=== PATIENT | female | born 1955 | race Caucasian/White ===

== ENCOUNTER 2020-07-13 13:30 | Outpatient (REF) | payer OTHER, SELFPAY ==
[2020-07-13 14:21] LABS: MANUAL DIFF FLAG NO
[2020-07-13 14:25] LABS: Basophils Absolute Auto 0.1 X10*3/uL (0.0-0.2); Basophils Percent Auto 1.1 % (0-2); Eosinophils Absolute Auto 0.2 X10*3/uL (0.0-0.4); Eosinophils Percent Auto 3.9 % (0-4); Hematocrit 41.3 % (37-47); Hemoglobin 12.9 g/dl (12.0-16.0); Imm Gran Abs Auto 0.01 X10*3/uL (0.00-0.03); Imm Gran Pct Auto 0.2 % (0.0-0.4); Lymphocytes Absolute Auto 1.8 X10*3/uL (1.2-4.9); Lymphocytes Percent Auto 29.2 % (20-40); Mean Corpuscular HGB Conc 31.2 g/dl (31.0-35.0); Mean Corpuscular Hemoglobin 30.6 pg (27.0-33.0); Mean Corpuscular Volume 97.9 fL (80-98); Mean Platelet Volume 10.1 fL (9.4-12.3); Monocytes Absolute Auto 0.9 X10*3/uL (0.1-1.2); Monocytes Percent Auto 15.2 % (2-11); Neutrophils Absolute Auto 3.1 X10*3/uL (2.0-8.3); Neutrophils Percent Auto 50.4 % (45-73); Platelet Count 197 X10*3/uL (160-400); Red Blood Count 4.22 X10*6/uL (4.20-5.50); Red Cell Distribution Width 12.7 % (11.0-16.0); White Blood Count 6.2 X10*3/uL (4.8-10.8)
[2020-07-13 15:00] LABS: Alanine Aminotransferase 13 U/L (0-31); Albumin Level 4.1 g/dL (3.5-5.0); Alkaline Phosphatase 81 U/L (39-117); Anion Gap 13 (12-20); Aspartate Amino Transferase 23 U/L (5-31); Bilirubin Total 0.5 mg/dL (0.0-1.0); Blood Urea Nitrogen 17 mg/dL (9-16); Calcium 8.6 mg/dL (8.4-10.2); Carbon Dioxide 30 mmol/L (22-29); Chloride 104 mmol/L (96-108); Estimated Glomerular Filt Rate 60; Glucose Random 89 mg/dL (60-115); Potassium 4.6 mmol/l (3.3-5.1); Sodium 142 mmol/L (135-145); Total Protein 6.5 g/dL (6.5-8.0)
[2020-07-13 15:10] LABS: Erythrocyte Sedimentation Rate 12 MM/HR (0-20)
== END 2020-07-13 13:31 | disposition home or self-care (01) ==
LOC: HO.LAB 13:30
PROVIDERS: Visit Provider Student in an Organized Health Care Education/Training Program
DX: M33.20 Polymyositis, organ involvement unspecified (principal); M10.9 Gout, unspecified; M19.042 Primary osteoarthritis, left hand; M19.041 Primary osteoarthritis, right hand; M54.12 Radiculopathy, cervical region
CPT/HCPCS: 36415; 80053; 82550; 85025; 85652; 86140

== ENCOUNTER → 2020-07-21 14:04 | Outpatient (BNVA) | payer OTHER, SELFPAY | PROVIDERS: Visit Provider Student in an Organized Health Care Education/Training Program | DX: Z76.89 Persons encountering health services in other specified circumstances (principal) ==

== ENCOUNTER 2020-07-25 14:52 | Outpatient (REF) | payer OTHER, SELFPAY ==
--- NOTE | 2020-07-25 14:47 | MR_ITS ---
EXAMINATION: MR HAND WITH AND WITHOUT CONTRAST, RIGHT CLINICAL INFORMATION: Hand pain. Gout. COMPARISON: Radiograph dated 03/13/2019 TECHNIQUE: Multiplanar MR imaging was obtained through the right hand on a 1.5 Tasha magnet before and after the intravenous administration of 10 mL Gadavist. FINDINGS: Metal artifact arises from the ring around the patient's ring finger proximal phalangeal shaft, limiting assessment of this region as well as the ring finger PIP joint. There is moderate multifocal osteoarthritis at the PIP joint which is characterized by nonuniform articular cartilage loss, marginal osteophytes, subchondral edema, a few subchondral cysts, and minimal subchondral enhancement. These findings are most notable at the index, long, and ring finger PIP joints. More mild multifocal osteoarthritis is present in the DIP joints, most notably at the small finger. MCP joints appear relatively well preserved with the exception of mild osteoarthritis at the thumb MCP joint. Mild osteoarthritis is also suspected at the first CMC joint. Small effusions are present at the PIP joints of the index, long, and ring fingers without significant synovitis. Small ganglion cysts are present in these regions, most notably at the index and long finger MCP joint. A 1.0 cm ganglion cyst is present at the palmar margin of the 1st CMC joint as well. No significant erosions or periostitis are identified. No gouty tophi are identified. The intrinsic hand musculature is normal in signal intensity. No atrophy or edema. Extensor and flexor tendons are intact without tears or tenosynovitis. No tendon subluxation. MR/MR hand RT wo/w con IMPRESSION: Multifocal osteoarthritis in the right hand, most notably at the PIP joints of the index, long, and ring fingers. No specific findings of gout. Ganglion cysts at multiple joints may contribute to a nodular appearance to the affected joints, most notably the index and long finger PIP joints
== END 2020-07-25 14:53 | disposition home or self-care (01) ==
LOC: HO.MRI 14:52
PROVIDERS: Visit Provider Student in an Organized Health Care Education/Training Program
DX: M79.641 Pain in right hand (principal); M10.9 Gout, unspecified
CPT/HCPCS: 73220; A9585

== ENCOUNTER 2020-08-01 09:03 | Outpatient (REF) | payer OTHER, SELFPAY ==
--- NOTE | 2020-08-01 09:39 | XR_ITS ---
EXAMINATION: XR CHEST CLINICAL INFORMATION: Cough COMPARISON: Previous chest x-rays most recent April 2010 TECHNIQUE: 2 views of the chest were obtained. FINDINGS: The cardiac and mediastinal contours are stable. The lungs are clear. There is no pleural effusion or pneumothorax. There are degenerative changes of the spine. XR/XR chest 2V IMPRESSION: Unremarkable examination.
[2020-08-01 10:28] LABS: MANUAL DIFF FLAG NO
[2020-08-01 10:44] LABS: Basophils Absolute Auto 0.1 X10*3/uL (0.0-0.2); Basophils Percent Auto 1.4 % (0-2); Eosinophils Absolute Auto 0.2 X10*3/uL (0.0-0.4); Eosinophils Percent Auto 4.9 % (0-4); Hematocrit 39.5 % (37-47); Hemoglobin 13.2 g/dl (12.0-16.0); Imm Gran Abs Auto 0.02 X10*3/uL (0.00-0.03); Imm Gran Pct Auto 0.4 % (0.0-0.4); Lymphocytes Absolute Auto 1.5 X10*3/uL (1.2-4.9); Lymphocytes Percent Auto 31.1 % (20-40); Mean Corpuscular HGB Conc 33.4 g/dl (31.0-35.0); Mean Corpuscular Hemoglobin 31.7 pg (27.0-33.0); Mean Platelet Volume 10.7 fL (9.4-12.3); Monocytes Absolute Auto 0.6 X10*3/uL (0.1-1.2); Monocytes Percent Auto 13.1 % (2-11); Neutrophils Absolute Auto 2.4 X10*3/uL (2.0-8.3); Neutrophils Percent Auto 49.1 % (45-73); Platelet Count 165 X10*3/uL (160-400); Red Blood Count 4.16 X10*6/uL (4.20-5.50); Red Cell Distribution Width 12.5 % (11.0-16.0); White Blood Count 4.9 X10*3/uL (4.8-10.8)
[2020-08-01 11:12] LABS: Alanine Aminotransferase 14 U/L (0-31); Albumin Level 3.8 g/dL (3.5-5.0); Alkaline Phosphatase 79 U/L (39-117); Aspartate Amino Transferase 24 U/L (5-31); Bilirubin Direct 0.3 mg/dL (0.0-0.5); Bilirubin Total 0.6 mg/dL (0.0-1.0); Calcium 9.1 mg/dL (8.4-10.2); Cholesterol 145 mg/dL; HDL Cholesterol 45 mg/dL; LDL Cholesterol Calculated 65 mg/dl; Magnesium 1.7 mg/dL (1.6-2.6); Total Protein 6.3 g/dL (6.5-8.0); Triglycerides 177 mg/dL
[2020-08-01 11:14] LABS: Alanine Aminotransferase 15 U/L (0-31); Albumin Level 3.9 g/dL (3.5-5.0); Alkaline Phosphatase 79 U/L (39-117); Anion Gap 12 (12-20); Aspartate Amino Transferase 22 U/L (5-31); Bilirubin Total 0.6 mg/dL (0.0-1.0); Blood Urea Nitrogen 17 mg/dL (9-16); C Reactive Protein 0.13 mg/dL (< or = 0.50); Calcium 9.1 mg/dL (8.4-10.2); Carbon Dioxide 24 mmol/L (22-29); Chloride 110 mmol/L (96-108); Estimated Glomerular Filt Rate > 60; Glucose Random 91 mg/dL (60-115); Sodium 142 mmol/L (135-145); Total Protein 6.3 g/dL (6.5-8.0); Uric Acid 9.7 mg/dL (2.4-5.7)
[2020-08-01 11:17] LABS: Vitamin D 25-OH Total 11.6 ng/mL (>30)
[2020-08-01 11:51] LABS: Erythrocyte Sedimentation Rate 10 MM/HR (0-20)
[2020-08-09 14:52] LABS: Aldolase 4.9 U/L (<=8.1)
== END 2020-08-01 09:04 | disposition home or self-care (01) ==
LOC: HO.LAB 09:03
PROVIDERS: Visit Provider Student in an Organized Health Care Education/Training Program
DX: M33.20 Polymyositis, organ involvement unspecified (principal); M10.9 Gout, unspecified; E78.5 Hyperlipidemia, unspecified; I10 Essential (primary) hypertension
CPT/HCPCS: 36415; 71046; 80053; 80061; 80076; 82085; 82248; 82306; 82310; 82550; 83735; 84550; 85025; 85652; 86140

== ENCOUNTER 2020-10-14 09:58 | Outpatient (REF) | payer SELFPAY ==
[2020-10-14 11:14] LABS: MANUAL DIFF FLAG NO
[2020-10-14 11:38] LABS: Basophils Absolute Auto 0.1 X10*3/uL (0.0-0.2); Basophils Percent Auto 1.1 % (0-2); Eosinophils Absolute Auto 0.3 X10*3/uL (0.0-0.4); Eosinophils Percent Auto 6.1 % (0-4); Hemoglobin 13.9 g/dl (12.0-16.0); Lymphocytes Absolute Auto 1.5 X10*3/uL (1.2-4.9); Lymphocytes Percent Auto 33.3 % (20-40); Mean Corpuscular HGB Conc 32.3 g/dl (31.0-35.0); Mean Corpuscular Hemoglobin 31.1 pg (27.0-33.0); Mean Corpuscular Volume 96.2 fL (80-98); Mean Platelet Volume 10.2 fL (9.4-12.3); Monocytes Absolute Auto 0.6 X10*3/uL (0.1-1.2); Monocytes Percent Auto 13.9 % (2-11); Neutrophils Absolute Auto 2.1 X10*3/uL (2.0-8.3); Neutrophils Percent Auto 45.6 % (45-73); Platelet Count 196 X10*3/uL (160-400); Red Blood Count 4.47 X10*6/uL (4.20-5.50); Red Cell Distribution Width 12.5 % (11.0-16.0); White Blood Count 4.6 X10*3/uL (4.8-10.8)
[2020-10-14 11:51] LABS: Alanine Aminotransferase 16 U/L (0-31); Albumin Level 4.2 g/dL (3.5-5.0); Alkaline Phosphatase 83 U/L (39-117); Anion Gap 13 (12-20); Aspartate Amino Transferase 27 U/L (5-31); Bilirubin Total 0.8 mg/dL (0.0-1.0); Blood Urea Nitrogen 17 mg/dL (9-16); C Reactive Protein 0.19 mg/dL (< or = 0.50); Calcium 9.4 mg/dL (8.4-10.2); Carbon Dioxide 27 mmol/L (22-29); Chloride 107 mmol/L (96-108); Cholesterol 159 mg/dL; Estimated Glomerular Filt Rate 54; Glucose Fasting 95 mg/dL (60-99); HDL Cholesterol 48 mg/dL; LDL Cholesterol Calculated 70 mg/dl; Potassium 4.1 mmol/L (3.3-5.1); Sodium 143 mmol/L (135-145); Total Protein 6.7 g/dL (6.5-8.0); Triglycerides 207 mg/dL; Uric Acid 9.4 mg/dL (2.4-5.7)
[2020-10-14 11:58] LABS: Glucose Urine UA NEG (NEG); Leukocyte Esterase Urine NEG (NEG); Nitrite Urine NEG (NEG); Urine Blood NEG (NEG); Urine Ketones NEG (NEG); Urine Protein NEG (NEG-TRACE)
[2020-10-14 12:01] LABS: Appearance Urine CLEAR; Color Urine YELLOW
[2020-10-16 20:41] LABS: Anti-Thrombin III Activity 105 % normal (80-135); Protein C Activity 137 % (70-180); Protein S Activity rflx Tot&Fr 138 % (60-140)
== END 2020-10-14 09:59 | disposition home or self-care (01) ==
LOC: HO.HMGCLDS 09:58
PROVIDERS: PCP Internal Medicine; Visit Provider Internal Medicine
DX: I10 Essential (primary) hypertension (principal); E78.00 Pure hypercholesterolemia, unspecified; M10.9 Gout, unspecified; Z86.718 Personal history of other venous thrombosis and embolism
CPT/HCPCS: 36415; 80053; 80061; 81003; 81241; 84550; 85025; 85300; 85302; 85303; 85305; 85306; 86140

== ENCOUNTER → 2021-01-13 15:12 | Outpatient (BNVA) | payer MEDICARE, OTHER, SELFPAY | PROVIDERS: PCP Internal Medicine; Visit Provider Student in an Organized Health Care Education/Training Program | DX: M33.20 Polymyositis, organ involvement unspecified (principal); M10.9 Gout, unspecified; M19.042 Primary osteoarthritis, left hand; M19.041 Primary osteoarthritis, right hand; R19.7 Diarrhea, unspecified | CPT/HCPCS: 99212 ==

== ENCOUNTER 2021-01-25 15:24 | Outpatient (REF) | payer MEDICARE, OTHER, SELFPAY ==
[2021-01-26 22:27] LABS: Transglutaminase Ab IgG 2 U/mL; Transglutaminase IgA 1 U/mL
== END 2021-01-25 15:25 | disposition home or self-care (01) ==
LOC: HO.LAB 15:24
PROVIDERS: PCP Internal Medicine; Referring Provider Internal Medicine; Visit Provider Nurse Practitioner Family
DX: R19.7 Diarrhea, unspecified (principal); K21.9 Gastro-esophageal reflux disease without esophagitis
CPT/HCPCS: 36415; 83516; Q3014

== ENCOUNTER 2021-01-26 14:06 | Outpatient (REF) | payer MEDICARE, OTHER, SELFPAY | END 2021-01-26 14:07 | disposition home or self-care (01) | LOC: HO.LNP 14:06 | PROVIDERS: Visit Provider Nurse Practitioner Family | DX: K21.9 Gastro-esophageal reflux disease without esophagitis (principal) | CPT/HCPCS: 87338 ==

== ENCOUNTER → 2021-02-28 14:12 | Outpatient (BNVA) | payer MEDICARE, OTHER, SELFPAY | PROVIDERS: PCP Internal Medicine; Visit Provider Nurse Practitioner Family | DX: R19.7 Diarrhea, unspecified (principal); R10.11 Right upper quadrant pain | CPT/HCPCS: 99212 ==

== ENCOUNTER 2021-03-21 10:36 | Outpatient (REF) | payer MEDICARE, OTHER, SELFPAY ==
--- NOTE | ~2021-03-21 | US_ITS ---
EXAMINATION: US ABDOMEN COMPLETE CLINICAL INFORMATION: Diarrhea. COMPARISON: Ultrasound renals 12/12/2018. CT abdomen pelvis 11/25/2014. Ultrasound abdomen 07/14/2010. TECHNIQUE: Real-time imaging of the abdominal viscera. FINDINGS: PANCREAS: Head and body the pancreas are normal. The tail is not well visualized due to bowel gas. ABDOMINAL AORTA: The proximal, mid, and distal segments are normal in caliber. INFERIOR VENA CAVA: Visualized portions are normal. LIVER: Liver echotexture is increased probably representing fatty infiltration. The liver is slightly enlarged, right lobe measuring 19 cm in length. The liver contour is normal. No focal hepatic lesion. There is no intrahepatic biliary duct dilatation seen. GALLBLADDER: Normal. The gallbladder is physiologically distended without evidence of stones, sludge, polyps, wall thickening or pericholecystic fluid. COMMON BILE DUCT: Normal in caliber measuring 0.55 cm in diameter. RIGHT KIDNEY: There is mild renal cortical thinning. No hydronephrosis. No renal calculi or focal parenchymal lesions. The kidney measures 10.7 cm in maximum dimension. LEFT KIDNEY: There is mild renal cortical thinning. No hydronephrosis. No renal calculi or focal parenchymal lesions. The kidney measures 10.0 cm in maximum dimension. SPLEEN: Normal. The spleen measures 11.2 cm in maximum dimension. FREE FLUID: None. US/US abdomen complete IMPRESSION: Slightly enlarged echogenic liver probably representing fatty infiltration. Normal-appearing gallbladder. No gallstones seen. Mild bilateral renal cortical thinning. Limited visualization of the tail of the pancreas.
== END 2021-03-21 10:37 | disposition home or self-care (01) ==
LOC: HO.HMGCX 10:36
PROVIDERS: PCP Internal Medicine; Visit Provider Nurse Practitioner Family
DX: R10.11 Right upper quadrant pain (principal); R19.7 Diarrhea, unspecified
CPT/HCPCS: 76700

== ENCOUNTER 2021-04-04 14:33 | Outpatient (REF) | payer MEDICARE, OTHER, SELFPAY ==
[2021-04-04 16:29] LABS: MANUAL DIFF FLAG NO
[2021-04-04 16:37] LABS: Basophils Absolute Auto 0.1 X10*3/uL (0.0-0.2); Eosinophils Absolute Auto 0.3 X10*3/uL (0.0-0.4); Eosinophils Percent Auto 4.9 % (0-4); Hematocrit 41.1 % (37-47); Hemoglobin 13.6 g/dl (12.0-16.0); Imm Gran Abs Auto 0.02 X10*3/uL (0.00-0.03); Imm Gran Pct Auto 0.3 % (0.0-0.4); Lymphocytes Absolute Auto 1.7 X10*3/uL (1.2-4.9); Lymphocytes Percent Auto 26.9 % (20-40); Mean Corpuscular HGB Conc 33.1 g/dl (31.0-35.0); Mean Corpuscular Hemoglobin 31.7 pg (27.0-33.0); Mean Corpuscular Volume 95.8 fL (80-98); Mean Platelet Volume 9.8 fL (9.4-12.3); Monocytes Percent Auto 15.4 % (2-11); Neutrophils Absolute Auto 3.2 X10*3/uL (2.0-8.3); Neutrophils Percent Auto 51.5 % (45-73); Platelet Count 188 X10*3/uL (160-400); Red Blood Count 4.29 X10*6/uL (4.20-5.50); Red Cell Distribution Width 12.7 % (11.0-16.0); White Blood Count 6.3 X10*3/uL (4.8-10.8)
[2021-04-04 16:54] LABS: Alanine Aminotransferase 17 U/L (0-31); Albumin Level 4.3 g/dL (3.5-5.0); Alkaline Phosphatase 81 U/L (39-117); Anion Gap 15 (12-20); Aspartate Amino Transferase 27 U/L (5-31); Bilirubin Total 0.7 mg/dL (0.0-1.0); Blood Urea Nitrogen 19 mg/dL (9-16); C Reactive Protein 0.13 mg/dL (< or = 0.50); Calcium 9.7 mg/dL (8.4-10.2); Carbon Dioxide 24 mmol/L (22-29); Chloride 109 mmol/L (96-108); Estimated Glomerular Filt Rate 56; Glucose Random 88 mg/dL (60-115); Potassium 3.8 mmol/L (3.3-5.1); Sodium 144 mmol/L (135-145); Total Protein 6.9 g/dL (6.5-8.0)
[2021-04-04 17:25] LABS: Erythrocyte Sedimentation Rate 12 MM/HR (0-20)
[2021-04-07 19:32] LABS: FIB-ALT 15 U/L (6-29); FIB-Alpha-2-Macroglobulin 387 mg/dL (106-279); FIB-Apolipoprotein A1 171 mg/dL (101-198); FIB-GGT 20 U/L (3-65); FIB-Haptoglobin 159 mg/dL (43-212); FIB-Total Bilirubin 0.6 mg/dL (0.2-1.2); Liver Fibrosis Score 0.43; Liver Fibrosis Stage F1-F2; Nec Inflam Act Grade A0; Nec Inflam Act Score 0.06
== END 2021-04-04 14:34 | disposition home or self-care (01) ==
LOC: HO.LAB 14:33
PROVIDERS: Student in an Organized Health Care Education/Training Program; PCP Internal Medicine; Referring Provider Internal Medicine; Visit Provider Nurse Practitioner Family
DX: M33.20 Polymyositis, organ involvement unspecified (principal); R74.8 Abnormal levels of other serum enzymes; R19.7 Diarrhea, unspecified; K76.0 Fatty (change of) liver, not elsewhere classified
CPT/HCPCS: 36415; 80053; 81596; 82550; 85025; 85652; 86140; 99212

== ENCOUNTER 2021-04-05 10:00 | Outpatient (REF) | payer MEDICARE, OTHER, SELFPAY ==
[2021-04-06 15:31] LABS: Leukocytes Stool Qualitative NEGATIVE (NEGATIVE)
[2021-04-10 20:01] LABS: Calprotectin, Fecal 10 mcg/g
== END 2021-04-05 10:01 | disposition home or self-care (01) ==
LOC: HO.LNP 10:00
PROVIDERS: Visit Provider Nurse Practitioner Family
DX: R19.7 Diarrhea, unspecified (principal)
CPT/HCPCS: 83993; 87045; 87046; 87177; 87209; 89055

== ENCOUNTER → 2021-04-13 14:50 | Outpatient (BNVA) | payer MEDICARE, OTHER, SELFPAY | PROVIDERS: PCP Internal Medicine; Visit Provider Nurse Practitioner Family | DX: M33.20 Polymyositis, organ involvement unspecified (principal); M10.9 Gout, unspecified; M19.042 Primary osteoarthritis, left hand; M19.041 Primary osteoarthritis, right hand; R19.7 Diarrhea, unspecified | CPT/HCPCS: 99212 ==

== ENCOUNTER → 2021-06-09 13:51 | Outpatient (BNVA) | payer MEDICARE, OTHER, SELFPAY | PROVIDERS: PCP Internal Medicine; Referring Provider Internal Medicine; Visit Provider Nurse Practitioner Family | DX: R19.7 Diarrhea, unspecified (principal); K58.0 Irritable bowel syndrome with diarrhea | CPT/HCPCS: 99212 ==

== ENCOUNTER → 2021-06-29 07:27 | Outpatient (REF) | payer MEDICARE, OTHER, SELFPAY ==
--- NOTE | ~2021-06-29 | NM_ITS ---
EXAMINATION: ND NUCLEAR MEDICINE HEPATOBILIARY SCAN CLINICAL INFORMATION: Diarrhea. Right upper quadrant pain. GERD. COMPARISON: Ultrasound abdomen 03/21/2021. TECHNIQUE: Following intravenous administration of 5 mCi of 99m technetium mebrofenin, imaging over the right upper quadrant was obtained up to 60 minutes. At 60 minutes, 1.8 mcg of CCK was administered and further imaging obtained. FINDINGS: There is normal hepatic uptake with visualization of common bile duct by 14 minutes and small bowel by 20 minutes. Gallbladder is visualized by 44 minutes. Post CCK gallbladder ejection fraction at 10 minutes is 34% and at 30 minutes is 82%. ND/ND hepatobiliary w pharm IMPRESSION: Normal hepatic uptake. Patent CBD and cystic duct. Normal gallbladder ejection fraction of 82% at 30 minutes.
== END ==
LOC: HO.NUCMED 07:27
PROVIDERS: PCP Internal Medicine; Visit Provider Nurse Practitioner Family
DX: R19.7 Diarrhea, unspecified (principal)
CPT/HCPCS: 78227; A9537; J2805

== ENCOUNTER 2021-06-30 09:48 | Outpatient (REF) | payer MEDICARE, OTHER, SELFPAY ==
[2021-06-30 10:41] LABS: MANUAL DIFF FLAG NO
[2021-06-30 10:52] LABS: Basophils Absolute Auto 0.1 X10*3/uL (0.0-0.2); Eosinophils Absolute Auto 0.5 X10*3/uL (0.0-0.4); Eosinophils Percent Auto 6.4 % (0-4); Hemoglobin 13.9 g/dl (12.0-16.0); Imm Gran Abs Auto 0.02 X10*3/uL (0.00-0.03); Imm Gran Pct Auto 0.2 % (0.0-0.4); Lymphocytes Absolute Auto 1.6 X10*3/uL (1.2-4.9); Lymphocytes Percent Auto 20.4 % (20-40); Mean Corpuscular HGB Conc 33.9 g/dl (31.0-35.0); Mean Corpuscular Hemoglobin 32.1 pg (27.0-33.0); Mean Corpuscular Volume 94.7 fL (80-98); Mean Platelet Volume 9.7 fL (9.4-12.3); Monocytes Percent Auto 12.1 % (2-11); Neutrophils Absolute Auto 4.8 X10*3/uL (2.0-8.3); Neutrophils Percent Auto 59.9 % (45-73); Platelet Count 180 X10*3/uL (160-400); Red Blood Count 4.33 X10*6/uL (4.20-5.50); Red Cell Distribution Width 12.9 % (11.0-16.0)
[2021-06-30 11:23] LABS: Alanine Aminotransferase 18 U/L (0-31); Albumin Level 4.2 g/dL (3.5-5.0); Alkaline Phosphatase 79 U/L (39-117); Anion Gap 11 (12-20); Aspartate Amino Transferase 26 U/L (5-31); Bilirubin Total 1.1 mg/dL (0.0-1.0); Blood Urea Nitrogen 17 mg/dL (9-16); Calcium 9.6 mg/dL (8.4-10.2); Carbon Dioxide 27 mmol/L (22-29); Chloride 109 mmol/L (96-108); Estimated Glomerular Filt Rate 51; Glucose Random 151 mg/dL (60-115); Potassium 3.6 mmol/L (3.3-5.1); Sodium 143 mmol/L (135-145); Total Protein 6.7 g/dL (6.5-8.0)
[2021-06-30 11:36] LABS: Erythrocyte Sedimentation Rate 19 MM/HR (0-20)
== END 2021-06-30 09:49 | disposition home or self-care (01) ==
LOC: HO.LAB 09:48
PROVIDERS: Nurse Practitioner Family; PCP Internal Medicine; Referring Provider Internal Medicine; Visit Provider Nurse Practitioner Family
DX: M33.20 Polymyositis, organ involvement unspecified (principal); R19.7 Diarrhea, unspecified
CPT/HCPCS: 36415; 80053; 82550; 84443; 85025; 85652; 86140; 99212

== ENCOUNTER 2021-07-03 14:21 | Outpatient (REF) | payer MEDICARE, OTHER, SELFPAY ==
[2021-07-03 16:32] LABS: Folate 17.6 ng/mL (> or = 4.0); Vitamin B12 690 pg/mL (200-900)
[2021-07-07 14:06] LABS: Vitamin D 25-OH, D2 <4 ng/mL; Vitamin D 25-OH, D3 21 ng/mL; Vitamin D 25-OH, Total 21 ng/mL (30-100)
== END 2021-07-03 14:22 | disposition home or self-care (01) ==
LOC: HO.LAB 14:21
PROVIDERS: PCP Internal Medicine; Visit Provider Nurse Practitioner Family
DX: R19.7 Diarrhea, unspecified (principal)
CPT/HCPCS: 36415; 82306; 82607; 82746

== ENCOUNTER 2021-07-05 11:00 | Outpatient (REF) | payer MEDICARE, OTHER, SELFPAY ==
[2021-07-10 22:12] LABS: Fecal Fat Qualitative Normal (Normal)
[2021-07-10 22:51] LABS: Pancreatic Elastase-1 >500 mcg/g
== END 2021-07-05 11:01 | disposition home or self-care (01) ==
LOC: HO.LNP 11:00
PROVIDERS: Visit Provider Nurse Practitioner Family
DX: R19.7 Diarrhea, unspecified (principal)
CPT/HCPCS: 82656; 82705

== ENCOUNTER → 2021-08-31 08:23 | Outpatient (BNVA) | payer MEDICARE, OTHER, SELFPAY | PROVIDERS: PCP Internal Medicine; Referring Provider Internal Medicine; Visit Provider Internal Medicine Gastroenterology | DX: K52.9 Noninfective gastroenteritis and colitis, unspecified (principal) | CPT/HCPCS: 99212 ==

== ENCOUNTER 2021-10-04 11:04 | Outpatient (REF) | payer MEDICARE, OTHER, SELFPAY ==
[2021-10-10 06:26] LABS: Gastrin 18 pg/mL (<=100)
== END 2021-10-04 11:05 | disposition home or self-care (01) ==
LOC: HO.LAB 11:04
PROVIDERS: PCP Internal Medicine; Visit Provider Internal Medicine Gastroenterology
DX: R19.7 Diarrhea, unspecified (principal)
CPT/HCPCS: 36415; 82941

== ENCOUNTER 2021-10-06 15:20 | Outpatient (REF) | payer MEDICARE, OTHER, SELFPAY ==
[2021-10-10 20:52] LABS: Fecal Fat Qualitative Normal (Normal)
== END 2021-10-06 15:21 | disposition home or self-care (01) ==
LOC: HO.LNP 15:20
PROVIDERS: Visit Provider Nurse Practitioner Family
DX: R19.7 Diarrhea, unspecified (principal)
CPT/HCPCS: 82705

== ENCOUNTER 2021-10-09 11:29 | Day surgery (SDC) | payer MEDICARE, OTHER, SELFPAY ==
[2021-10-03 14:15] VITALS: BMI 39.2
--- NOTE | 2021-10-06 09:37 | P.CONAN_ITS ---
Documented by User: Alana Feliciano NP 10/06/21 09:38 HPI - Anesthesia Eval Consult details Narrative: 66yo F for Upper Endoscopy PMFSH Active Problems Active Problems: All Active Problems (Updated 06/09/21 @ 20:53 by Nini Mccormick, [facility]) Cough (Acute) Diarrhea (Acute) Primary osteoarthritis, right hand (Acute) Primary osteoarthritis, left hand (Acute) Gout (Acute) Polymyositis (Acute) Past Medical History Medical History DVT (deep venous thrombosis) Eczema Gout Polymyositis Primary osteoarthritis, left hand Primary osteoarthritis, right hand Surgical History Surgical History H/O colonoscopy Social History Social History Alcohol intake: never Patient Tobacco Use Status: Never used Tobacco e-Cigarette/Vaping Use: Never Used Advance Directives Information Provided: Yes (brochure mailed) Advance Directives on File: No Meds Allergies Allergy/AdvReac Type Severity Reaction Status Date / Time hydroxychloroquine Allergy Severe Rash Verified 08/31/21 08:41 [Plaquenil] methotrexate Allergy Intermediate Diarrhea Verified 08/31/21 08:41 tramadol Allergy Intermediate Diarrhea Verified 08/31/21 08:41 codeine [Codeine] Allergy Mild NAUSEA & Verified 08/31/21 08:41 VOMITING oxycodone Allergy Mild mild Verified 08/31/21 08:41 Home Medications Medication Instructions Recorded Confirmed Last Taken Type acetaminophen 650 650 mg PO Q8H 07/21/20 10/03/21 Unknown History mg PRN tablet,extended release atorvastatin 20 20 mg PO DAILY 07/21/20 10/03/21 Unknown History mg tablet calcium citrate 1 tab PO DAILY 07/21/20 10/03/21 Unknown History 315 mg calcium-vitamin D3 6.25 mcg (250 unit) tablet (Citracal + Vitamin D Maximum) furosemide 20 mg 10 mg PO QAM 07/21/20 10/03/21 Unknown History tablet metoprolol 100 mg PO DAILY 07/21/20 10/03/21 Unknown History succinate 100 mg tablet,extended release 24 hr vitamin B complex 1 tab PO DAILY 07/21/20 10/03/21 Unknown History (B Complex-Vitamin B12) loperamide 2 mg 2 mg PO Q6H PRN 01/13/21 10/03/21 Unknown History capsule (Imodium A-D) Saccharomyces 250 mg PO BID 04/13/21 10/03/21 Unknown History boulardii 250 mg capsule (Daily Probiotic (S. boulardii)) methylcellulose 500 mg PO DAILY 04/13/21 10/03/21 Unknown History (laxative) 500 mg tablet (Fiber Therapy (methylcellulose) ) Exam Exam Date and Time: October 06, 2021 0937 Height,Weight and Vital Signs: Height 5 ft 1.5 in Weight 95.708 kg Pertinent Lab Results Pertinent Lab Results: Laboratory Tests 06/30/21 06/30/21 10:38 10:38 WBC 8.0 Hgb 13.9 Hct 41.0 Plt Count 180 Sodium 143 Potassium 3.6 Chloride 109 H Carbon Dioxide 27 BUN 17 H Creatinine 1.08 Assessment and Plan Assessment Anesthesia Assessment: Chart Reviewed Documented by User: Katia Jackson MD 10/09/21 13:15 [facility] Past Medical History Medical History DVT (deep venous thrombosis) Eczema Gout Polymyositis Primary osteoarthritis, left hand Primary osteoarthritis, right hand Surgical History Surgical History H/O colonoscopy History of Problems with Anesthesia: Yes (Nausea and vomiting) Social History Social History Alcohol intake: never Patient Tobacco Use Status: Never used Tobacco e-Cigarette/Vaping Use: Never Used Advance Directives Information Provided: Yes (brochure mailed) Advance Directives on File: No Meds Allergies Allergy/AdvReac Type Severity Reaction Status Date / Time hydroxychloroquine Allergy Severe Rash Verified 08/31/21 08:41 [Plaquenil] methotrexate Allergy Intermediate Diarrhea Verified 08/31/21 08:41 tramadol Allergy Intermediate Diarrhea Verified 08/31/21 08:41 codeine [Codeine] Allergy Mild NAUSEA & Verified 08/31/21 08:41 VOMITING oxycodone Allergy Mild mild Verified 08/31/21 08:41 Home Medications Medication Instructions Recorded Confirmed Last Taken Type acetaminophen 650 650 mg PO Q8H 07/21/20 10/03/21 Unknown History mg PRN tablet,extended release atorvastatin 20 20 mg PO DAILY 07/21/20 10/03/21 Unknown History mg tablet calcium citrate 1 tab PO DAILY 07/21/20 10/03/21 Unknown History 315 mg calcium-vitamin D3 6.25 mcg (250 unit) tablet (Citracal + Vitamin D Maximum) furosemide 20 mg 10 mg PO QAM 07/21/20 10/03/21 Unknown History tablet metoprolol 100 mg PO DAILY 07/21/20 10/03/21 Unknown History succinate 100 mg tablet,extended release 24 hr vitamin B complex 1 tab PO DAILY 07/21/20 10/03/21 Unknown History (B Complex-Vitamin B12) loperamide 2 mg 2 mg PO Q6H PRN 01/13/21 10/03/21 Unknown History capsule (Imodium A-D) Saccharomyces 250 mg PO BID 04/13/21 10/03/21 Unknown History boulardii 250 mg capsule (Daily Probiotic (S. boulardii)) methylcellulose 500 mg PO DAILY 04/13/21 10/03/21 Unknown History (laxative) 500 mg tablet (Fiber Therapy (methylcellulose) ) Exam Airway Mallampati Class: II TM Dist: >3cm Neck ROM: Full Heart: RRR Lungs: CTA Assessment and Plan Assessment Anesthesia Assessment: Anesthesia Plan Discussed Final Anesthetic Review History of Problems with Anesthesia: Yes (Nausea and vomiting) NPO: Yes ASA Class: II Final Preanesthetic Review: Meds/Allgs Chart Reviewed, Consent Obtained/Reviewed and Anes Risks/Benef Reviewed Patient Risk: Low Procedure Risk: Intermediate Anesthetic Plan Anesthetic Plan: MAC: Disposition: Standard PACU
[2021-10-09 11:49] VITALS: BP 187/86; PULSE 72; RESP 17; TEMP 36.8; O2SAT 98
[2021-10-09] MEDS: Lactated Ringers 1,000 ML 100 ML IVCONT (12:11)
--- NOTE | 2021-10-09 12:11 | MHC.SHP ---
Pre-Procedural Eval Section A Date of Service: 10/09/21 The patient is an INPATIENT: No The History & Physical has been completed within 30 days and I have reviewed it.: No Section B Chief Complaint: GERD Details of Present Illness: GERD, chronic diarrhea Relevant Family History (Specify if Yes): No Relevant Social History: None Present Medications: see Short Stay Collaborative assessment Medical History: Significant History (Gout Polymyositis Primary osteoarthritis, left hand Primary osteoarthritis, right hand) History of Previous Operations: Relevant previous surgery/procedure and date(s) (History of colonoscopy) Allergies: Allergies Allergy/AdvReac Type Severity Reaction Status Date / Time hydroxychloroquine Allergy Severe Rash Verified 08/31/21 08:41 [Plaquenil] methotrexate Allergy Intermediate Diarrhea Verified 08/31/21 08:41 tramadol Allergy Intermediate Diarrhea Verified 08/31/21 08:41 codeine [Codeine] Allergy Mild NAUSEA & Verified 08/31/21 08:41 VOMITING oxycodone Allergy Mild mild Verified 08/31/21 08:41 Review of Systems Sugical H&P ROS: Negative: Constitution and Cardiovascular and Yes, Specify: Gastrointestinal (chronic diarrhea, GERD) Exam Surgical H&P Exam: Normal: Heart, Normal: Lungs, Normal: Extremities and Normal: Abdomen Plan Diagnosis/Plan: Unchanged I have reviewed the history and physical and performed a pertinent physical examination on my patient. No changes have occurred unless specified.
[2021-10-09 12:13] VITALS: BP 164/70
--- NOTE | 2021-10-09 12:24 | W.PM.OPN ---
Operative Note Operative Note Date of Service: 10/09/21 Narrative: Pre-op diagnosis: GERD, intermittent dysphagia to solids, chronic diarrhea Post-op diagnosis:?other (Esophagitis, hiatal hernia, Schatzki's ring, gastritis and duodenitis) Procedure: FLEXIBLE TRANSORAL UPPER GASTROINTESTINAL ENDOSCOPY WITH BIOPSIES AND ESOPHAGEAL BALLOON DILATION Consent:?Indications for the procedure and potential complications of bleeding, perforation, reaction to medications and missed diagnosis were discussed with the patient and informed consent was obtained. Instrument:?Olympus GIF H 190 mid size upper endoscope Monitoring: Vital signs and clinical assessment, continuous EKG monitoring, Pulse oximetry, Carbon Dioxide monitoring and blood pressure monitoring were done throughout the procedure. Procedure:?The patient was placed in the left lateral decubitis position and pre-procedure medications were administered and a bite block was placed. The endoscope was inserted into the mouth and advanced under direct vision to the third part of duodenum. A careful inspection was made as the upper endoscope was withdrawn including a retroflexed examination of the proximal stomach; Findings and interventions are described below. Findings: Larynx:? Normal Esophagus: GE junction at 35 cms, small hiatal hernia 35 to 37 cms. Focal esophagitis at GEJ with partially obstructing Schatzki's ring/focal stricture. Esophageal balloon dilation was performed with a 19 mm (54 F) CRE balloon for 60 seconds. Biopsies were obtained from proximal esophagus to check for EOE Stomach: Mild gastric erythema. Biopsies were obtained. Grade 2 flap valve on retroflexed examination of the cardia. Duodenum: Mild duodenitis in the bulb and normal descending duodenum. Biopsies were obtained from 3rd part of the duodenum to check for celiac sprue/eosinophilic gastroenteritis Intervention: Biopsies as noted above Impression and Post Procedure Diagnosis: Endoscopy Findings: ESOPHAGUS: GE junction at 35 cms, small hiatal hernia 35 to 37 cms. Focal esophagitis at GEJ with partially obstructing Schatzki's ring/focal stricture. Esophageal balloon dilation was performed with a 19 mm (54 F) CRE balloon for 60 seconds. Biopsies were obtained from proximal esophagus to check for EOE STOMACH: Mild Gastritis - biopsied to check for H Pylori/eosinophilic gastroenteritis DUODENUM: Mild duodenitis in the bulb and normal descending duodenum. Biopsies were obtained from 3rd part of the duodenum to check for celiac sprue/eosinophilic gastroenteritis Plan: Await pathology results. Start Famotidine 20 mg twice daily for GERD. Patient has an appointment on 10/12/21 in the GI Clinic with Srinivas Torres M.D. Repeat EGD with dilation as needed for recurrent dysphagia Above findings were reviewed with the patient and GERD and Hiatal Hernia handouts were given in the discharge area Surgeon: Srinivas Torres MD Anesthesia:?MAC (Dr Jackson) Was an Meat Apprentice used for this Procedure?:?Yes Meat Apprentice:?Andrew Romo Estimated blood loss (mL):?0 Pathology:?other (A: SMALL BOWEL BXS R/O EOSINOPHILIC GASTROENTERITIS AND R/O CELIAC? B: GASTRIC ANTRUM R/O H PYLORI? C: PROXIMAL ESOPHAGUS R/O EOE) Condition:?stable Disposition:?PACU
[2021-10-09 12:44] VITALS: BP 153/82; PULSE 114; RESP 20; TEMP 36.2; O2SAT 98
[2021-10-09 13:00] VITALS: BP 157/79; PULSE 84; RESP 18; TEMP 36.2; O2SAT 97
== END 2021-10-09 13:33 | disposition home or self-care (01) ==
PROVIDERS: PCP Internal Medicine; Visit Provider Internal Medicine Gastroenterology
PROC: 0DJ08ZZ Inspection of Upper Intestinal Tract, Via Natural or Artificial Opening Endoscopic (ICD-10-PCS; CPT 43235; principal; 2021-10-09 12:40)
DX: K21.9 Gastro-esophageal reflux disease without esophagitis (principal); K22.2 Esophageal obstruction; K20.80 Other esophagitis without bleeding; K29.50 Unspecified chronic gastritis without bleeding; K29.80 Duodenitis without bleeding; K44.9 Diaphragmatic hernia without obstruction or gangrene; Z79.899 Other long term (current) drug therapy; Z88.8 Allergy status to other drugs, medicaments and biological substances
CPT/HCPCS: 43249; 43239; 88305; 88342; C1726; J1100; J2405

== ENCOUNTER → 2021-10-12 08:47 | Outpatient (BNVA) | payer MEDICARE, OTHER, SELFPAY | PROVIDERS: PCP Internal Medicine; Referring Provider Internal Medicine; Visit Provider Internal Medicine Gastroenterology | DX: R19.7 Diarrhea, unspecified (principal) | CPT/HCPCS: 99212 ==

== ENCOUNTER 2021-10-23 10:59 | Outpatient (REF) | payer MEDICARE, OTHER, SELFPAY ==
[2021-10-23 13:55] LABS: MANUAL DIFF FLAG NO
[2021-10-23 14:03] LABS: Basophils Absolute Auto 0.1 X10*3/uL (0.0-0.2); Basophils Percent Auto 0.7 % (0-2); Eosinophils Absolute Auto 0.2 X10*3/uL (0.0-0.4); Eosinophils Percent Auto 2.5 % (0-4); Hematocrit 40.5 % (37.0-47.0); Imm Gran Abs Auto 0.01 X10*3/uL (0.00-0.03); Imm Gran Pct Auto 0.1 % (0.0-0.4); Lymphocytes Absolute Auto 1.6 X10*3/uL (1.2-4.9); Mean Corpuscular HGB Conc 32.1 g/dl (31.0-35.0); Mean Corpuscular Hemoglobin 31.5 pg (27.0-33.0); Mean Corpuscular Volume 98.1 fL (80.0-98.0); Mean Platelet Volume 10.1 fL (9.4-12.3); Monocytes Absolute Auto 1.2 X10*3/uL (0.1-1.2); Monocytes Percent Auto 16.3 % (2-11); Neutrophils Absolute Auto 4.2 x10*3/uL (2.0-8.3); Neutrophils Percent Auto 58.4 % (45-73); Platelet Count 202 X10*3/uL (160-400); Red Blood Count 4.13 X10*6/uL (4.20-5.50); Red Cell Distribution Width 12.5 % (11.0-16.0); White Blood Count 7.2 X10*3/uL (4.8-10.8)
[2021-10-23 14:15] LABS: Alanine Aminotransferase 14 U/L (0-31); Alkaline Phosphatase 65 U/L (39-117); Anion Gap 13 (12-20); Aspartate Amino Transferase 19 U/L (5-31); Bilirubin Total 1.3 mg/dL (0.0-1.0); Blood Urea Nitrogen 15 mg/dL (9-16); C Reactive Protein 5.33 mg/dL (< or = 0.50); Calcium 9.6 mg/dL (8.4-10.2); Carbon Dioxide 28 mmol/L (22-29); Chloride 106 mmol/L (96-108); Estimated Glomerular Filt Rate 56; Glucose Random 87 mg/dL (60-115); Potassium 4.2 mmol/L (3.3-5.1); Sodium 143 mmol/L (135-145); Total Protein 6.6 g/dL (6.5-8.0); Uric Acid 7.5 mg/dL (2.4-5.7)
[2021-10-23 14:41] LABS: Thyroid Stimulating Hormone 0.75 uIU/mL (0.32-4.0)
== END 2021-10-23 11:00 | disposition home or self-care (01) ==
LOC: HO.10HDL 10:59
PROVIDERS: Visit Provider Internal Medicine
DX: M10.9 Gout, unspecified (principal); I10 Essential (primary) hypertension; R60.0 Localized edema; N18.9 Chronic kidney disease, unspecified
CPT/HCPCS: 36415; 80053; 84443; 84550; 85025; 86140

== ENCOUNTER 2022-01-02 09:44 | Outpatient (REF) | payer MEDICARE, OTHER, SELFPAY ==
[2022-01-02 11:04] LABS: Alanine Aminotransferase 21 U/L (0-31); Albumin Level 3.9 g/dL (3.5-5.0); Alkaline Phosphatase 69 U/L (39-117); Anion Gap 11 (12-20); Aspartate Amino Transferase 28 U/L (5-31); Bilirubin Total 0.7 mg/dL (0.0-1.0); Blood Urea Nitrogen 21 mg/dL (9-16); Calcium 9.8 mg/dL (8.4-10.2); Carbon Dioxide 29 mmol/L (22-29); Chloride 109 mmol/L (96-108); Estimated Glomerular Filt Rate 55; Glucose Random 96 mg/dL (60-115); Potassium 4.3 mmol/L (3.3-5.1); Sodium 145 mmol/L (135-145); Total Protein 6.2 g/dL (6.5-8.0); Uric Acid 8.4 mg/dL (2.4-5.7)
[2022-01-02 11:34] LABS: Vitamin B12 512 pg/mL (200-900)
== END 2022-01-02 09:45 | disposition home or self-care (01) ==
LOC: HO.LAB 09:44
PROVIDERS: PCP Internal Medicine; Visit Provider Internal Medicine
DX: R60.0 Localized edema (principal); M10.9 Gout, unspecified; I12.9 Hypertensive chronic kidney disease with stage 1 through stage 4 chronic kidney disease, or unspecified chronic kidney disease; N18.9 Chronic kidney disease, unspecified; G62.9 Polyneuropathy, unspecified
CPT/HCPCS: 36415; 80053; 82607; 84550; 86140

== ENCOUNTER → 2022-01-18 08:10 | Outpatient (BNVA) | payer MEDICARE, OTHER, SELFPAY | PROVIDERS: PCP Internal Medicine; Referring Provider Internal Medicine; Visit Provider Internal Medicine Gastroenterology | DX: R19.7 Diarrhea, unspecified (principal) | CPT/HCPCS: 99212 ==

== ENCOUNTER 2022-03-05 15:38 | Outpatient (REF) | payer MEDICARE, OTHER, SELFPAY ==
[2022-03-05 16:13] LABS: MANUAL DIFF FLAG NO
[2022-03-05 16:49] LABS: Basophils Absolute Auto 0.1 X10*3/uL (0.0-0.2); Basophils Percent Auto 0.7 % (0-2); Eosinophils Absolute Auto 0.3 X10*3/uL (0.0-0.4); Eosinophils Percent Auto 5.1 % (0-4); Hematocrit 38.9 % (37.0-47.0); Hemoglobin 13.1 g/dl (12.0-16.0); Imm Gran Abs Auto 0.01 X10*3/uL (0.00-0.03); Imm Gran Pct Auto 0.1 % (0.0-0.4); Lymphocytes Absolute Auto 2.1 X10*3/uL (1.2-4.9); Lymphocytes Percent Auto 30.6 % (20-40); Mean Corpuscular HGB Conc 33.7 g/dl (31.0-35.0); Mean Corpuscular Hemoglobin 33.2 pg (27.0-33.0); Mean Corpuscular Volume 98.5 fL (80.0-98.0); Mean Platelet Volume 9.7 fL (9.4-12.3); Monocytes Absolute Auto 1.1 X10*3/uL (0.1-1.2); Monocytes Percent Auto 15.9 % (2-11); Neutrophils Absolute Auto 3.2 x10*3/uL (2.0-8.3); Neutrophils Percent Auto 47.6 % (45-73); Platelet Count 207 X10*3/uL (160-400); Red Blood Count 3.95 X10*6/uL (4.20-5.50); Red Cell Distribution Width 12.9 % (11.0-16.0); White Blood Count 6.7 X10*3/uL (4.8-10.8)
[2022-03-05 17:22] LABS: Alanine Aminotransferase 21 U/L (0-31); Albumin Level 3.9 g/dL (3.5-5.0); Alkaline Phosphatase 77 U/L (39-117); Anion Gap 13 (12-20); Aspartate Amino Transferase 26 U/L (5-31); Bilirubin Total 0.5 mg/dL (0.0-1.0); Blood Urea Nitrogen 29 mg/dL (9-16); Calcium 9.3 mg/dL (8.4-10.2); Carbon Dioxide 25 mmol/L (22-29); Chloride 108 mmol/L (96-108); Estimated Glomerular Filt Rate 54; Glucose Random 99 mg/dL (60-115); Potassium 4.1 mmol/L (3.3-5.1); Sodium 142 mmol/L (135-145); Total Protein 6.5 g/dL (6.5-8.0)
[2022-03-05 17:26] LABS: Erythrocyte Sedimentation Rate 15 MM/HR (0-20)
[2022-03-05 18:17] LABS: Folate 19.7 ng/mL (> or = 4.0)
[2022-03-07 14:31] LABS: Anti Nuclear Antibody Screen NEGATIVE (NEGATIVE)
== END 2022-03-05 15:39 | disposition home or self-care (01) ==
LOC: HO.LAB 15:38
PROVIDERS: PCP Internal Medicine; Visit Provider Internal Medicine
DX: K21.9 Gastro-esophageal reflux disease without esophagitis (principal); M10.9 Gout, unspecified; I12.9 Hypertensive chronic kidney disease with stage 1 through stage 4 chronic kidney disease, or unspecified chronic kidney disease; N18.9 Chronic kidney disease, unspecified; M33.20 Polymyositis, organ involvement unspecified
CPT/HCPCS: 36415; 80053; 82746; 84550; 85025; 85652; 86038; 86039

== ENCOUNTER → 2022-07-12 13:54 | Outpatient (BNVA) | payer MEDICARE, OTHER, SELFPAY | PROVIDERS: PCP Internal Medicine; Referring Provider Internal Medicine; Visit Provider Internal Medicine Gastroenterology | DX: R19.7 Diarrhea, unspecified (principal); K86.89 Other specified diseases of pancreas | CPT/HCPCS: 99212 ==

== ENCOUNTER 2022-07-20 10:34 | Outpatient (REF) | payer MEDICARE, OTHER, SELFPAY ==
[2022-07-20 10:53] LABS: MANUAL DIFF FLAG NO
[2022-07-20 11:51] LABS: Basophils Absolute Auto 0.1 X10*3/uL (0.0-0.2); Eosinophils Absolute Auto 0.2 X10*3/uL (0.0-0.4); Eosinophils Percent Auto 2.7 % (0-4); Hematocrit 40.1 % (37.0-47.0); Hemoglobin 13.3 g/dl (12.0-16.0); Imm Gran Abs Auto 0.03 X10*3/uL (0.00-0.03); Imm Gran Pct Auto 0.4 % (0.0-0.4); Lymphocytes Absolute Auto 1.6 X10*3/uL (1.2-4.9); Mean Corpuscular HGB Conc 33.2 g/dl (31.0-35.0); Mean Corpuscular Hemoglobin 32.9 pg (27.0-33.0); Mean Corpuscular Volume 99.3 fL (80.0-98.0); Mean Platelet Volume 10.3 fL (9.4-12.3); Monocytes Absolute Auto 1.3 X10*3/uL (0.1-1.2); Monocytes Percent Auto 16.6 % (2-11); Neutrophils Absolute Auto 4.7 x10*3/uL (2.0-8.3); Neutrophils Percent Auto 59.3 % (45-73); Platelet Count 185 X10*3/uL (160-400); Red Blood Count 4.04 X10*6/uL (4.20-5.50); Red Cell Distribution Width 12.9 % (11.0-16.0); White Blood Count 7.9 X10*3/uL (4.8-10.8)
[2022-07-20 12:23] LABS: Alanine Aminotransferase 23 U/L (0-31); Albumin Level 4.1 g/dL (3.5-5.0); Alkaline Phosphatase 85 U/L (39-117); Anion Gap 17 (12-20); Aspartate Amino Transferase 30 U/L (5-31); Bilirubin Total 1.4 mg/dL (0.0-1.0); Blood Urea Nitrogen 17 mg/dL (9-16); Calcium 9.1 mg/dL (8.4-10.2); Carbon Dioxide 25 mmol/L (22-29); Chloride 104 mmol/L (96-108); Estimated Glomerular Filt Rate 57; Glucose Random 91 mg/dL (60-115); Potassium 4.2 mmol/L (3.3-5.1); Sodium 142 mmol/L (135-145); Total Protein 6.6 g/dL (6.5-8.0); Uric Acid 7.8 mg/dL (2.4-5.7)
== END 2022-07-20 10:35 | disposition home or self-care (01) ==
LOC: HO.LAB 10:34
PROVIDERS: PCP Internal Medicine; Visit Provider Internal Medicine
DX: I12.9 Hypertensive chronic kidney disease with stage 1 through stage 4 chronic kidney disease, or unspecified chronic kidney disease (principal); N18.9 Chronic kidney disease, unspecified; M10.9 Gout, unspecified; R60.9 Edema, unspecified
CPT/HCPCS: 36415; 80053; 84443; 84550; 85025

== ENCOUNTER 2022-11-08 10:35 | Outpatient (REF) | payer MEDICARE, OTHER, SELFPAY ==
[2022-11-08 10:47] LABS: MANUAL DIFF FLAG NO
[2022-11-08 12:55] LABS: Basophils Absolute Auto 0.1 X10*3/uL (0.0-0.2); Basophils Percent Auto 1.9 % (0-2); Eosinophils Absolute Auto 0.4 X10*3/uL (0.0-0.4); Eosinophils Percent Auto 7.9 % (0-4); Hematocrit 41.5 % (37.0-47.0); Hemoglobin 13.2 g/dl (12.0-16.0); Imm Gran Abs Auto 0.02 X10*3/uL (0.00-0.03); Imm Gran Pct Auto 0.4 % (0.0-0.4); Lymphocytes Absolute Auto 1.8 X10*3/uL (1.2-4.9); Lymphocytes Percent Auto 36.8 % (20-40); Mean Corpuscular HGB Conc 31.8 g/dl (31.0-35.0); Mean Corpuscular Hemoglobin 31.4 pg (27.0-33.0); Mean Corpuscular Volume 98.8 fL (80.0-98.0); Mean Platelet Volume 10.4 fL (9.4-12.3); Monocytes Absolute Auto 0.8 X10*3/uL (0.1-1.2); Monocytes Percent Auto 15.6 % (2-11); Neutrophils Absolute Auto 1.8 x10*3/uL (2.0-8.3); Neutrophils Percent Auto 37.4 % (45-73); Platelet Count 169 X10*3/uL (160-400); Red Cell Distribution Width 13.3 % (11.0-16.0); White Blood Count 4.8 X10*3/uL (4.8-10.8)
[2022-11-08 14:08] LABS: Alanine Aminotransferase 23 U/L (0-31); Alkaline Phosphatase 86 U/L (39-117); Anion Gap 14 (12-20); Aspartate Amino Transferase 30 U/L (5-31); Bilirubin Total 0.8 mg/dL (0.0-1.0); Blood Urea Nitrogen 20 mg/dL (9-16); Carbon Dioxide 29 mmol/L (22-29); Chloride 106 mmol/L (96-108); Cholesterol 155 mg/dL; Estimated Glomerular Filt Rate > 60; Glucose Fasting 92 mg/dL (60-99); HDL Cholesterol 42 mg/dL; LDL Cholesterol Calculated 61 mg/dl; Potassium 4.1 mmol/L (3.3-5.1); Sodium 145 mmol/L (135-145); Total Protein 6.3 g/dL (6.5-8.0); Triglycerides 264 mg/dL; Uric Acid 8.1 mg/dL (2.4-5.7)
[2022-11-08 14:16] LABS: Vitamin D 25-OH Total 12.7 ng/mL (>30)
== END 2022-11-08 10:36 | disposition home or self-care (01) ==
LOC: HO.LAB 10:35
PROVIDERS: PCP Internal Medicine; Visit Provider Internal Medicine
DX: Z00.00 Encounter for general adult medical examination without abnormal findings (principal); E55.9 Vitamin D deficiency, unspecified
CPT/HCPCS: 36415; 80053; 80061; 82306; 84550; 85025

== ENCOUNTER → 2022-11-22 07:55 | Outpatient (BNVA) | payer MEDICARE, OTHER, SELFPAY | PROVIDERS: PCP Internal Medicine; Referring Provider Internal Medicine; Visit Provider Internal Medicine Gastroenterology | DX: R19.7 Diarrhea, unspecified (principal) | CPT/HCPCS: 99212 ==

== ENCOUNTER 2023-05-20 12:42 | Outpatient (REF) | payer MEDICARE, OTHER, SELFPAY ==
[2023-05-20 13:01] LABS: MANUAL DIFF FLAG NO
[2023-05-20 13:34] LABS: Basophils Absolute Auto 0.1 X10*3/uL (0.0-0.2); Basophils Percent Auto 1.2 % (0-2); Eosinophils Absolute Auto 0.4 X10*3/uL (0.0-0.4); Hematocrit 38.5 % (37.0-47.0); Hemoglobin 12.6 g/dl (12.0-16.0); Imm Gran Abs Auto 0.01 X10*3/uL (0.00-0.03); Imm Gran Pct Auto 0.2 % (0.0-0.4); Lymphocytes Absolute Auto 1.7 X10*3/uL (1.2-4.9); Lymphocytes Percent Auto 29.6 % (20-40); Mean Corpuscular HGB Conc 32.7 g/dl (31.0-35.0); Mean Corpuscular Hemoglobin 32.1 pg (27.0-33.0); Monocytes Absolute Auto 0.9 X10*3/uL (0.1-1.2); Monocytes Percent Auto 15.5 % (2-11); Neutrophils Absolute Auto 2.8 x10*3/uL (2.0-8.3); Neutrophils Percent Auto 47.5 % (45-73); Platelet Count 211 X10*3/uL (160-400); Red Blood Count 3.93 X10*6/uL (4.20-5.50); Red Cell Distribution Width 13.5 % (11.0-16.0); White Blood Count 5.8 X10*3/uL (4.8-10.8)
[2023-05-20 14:32] LABS: Erythrocyte Sedimentation Rate 23 MM/HR (0-20)
[2023-05-20 14:39] LABS: Alanine Aminotransferase 16 U/L (0-31); Albumin Level 3.8 g/dL (3.5-5.0); Alkaline Phosphatase 80 U/L (39-117); Anion Gap 11 (12-20); Aspartate Amino Transferase 29 U/L (5-31); Bilirubin Total 0.6 mg/dL (0.0-1.0); Blood Urea Nitrogen 17 mg/dL (9-16); C Reactive Protein 0.19 mg/dL (< or = 0.50); Calcium 9.7 mg/dL (8.4-10.2); Carbon Dioxide 28 mmol/L (22-29); Chloride 111 mmol/L (96-108); Estimated Glomerular Filt Rate > 60; Glucose Random 125 mg/dL (60-115); Potassium 3.9 mmol/L (3.3-5.1); Sodium 146 mmol/L (135-145); Total Protein 6.5 g/dL (6.5-8.0)
[2023-05-20 14:57] LABS: Vitamin D 25-OH Total 30.4 ng/mL (>30)
== END 2023-05-20 12:43 | disposition home or self-care (01) ==
LOC: HO.LAB 12:42
PROVIDERS: PCP Internal Medicine; Visit Provider Internal Medicine
DX: M10.9 Gout, unspecified (principal); K21.9 Gastro-esophageal reflux disease without esophagitis; K58.0 Irritable bowel syndrome with diarrhea; I12.9 Hypertensive chronic kidney disease with stage 1 through stage 4 chronic kidney disease, or unspecified chronic kidney disease; N18.9 Chronic kidney disease, unspecified; Z87.09 Personal history of other diseases of the respiratory system
CPT/HCPCS: 36415; 80053; 82306; 82550; 84443; 84550; 85025; 85652; 86140

== ENCOUNTER 2023-05-30 08:44 | Emergency (ER) | payer MEDICARE, OTHER, SELFPAY ==
--- NOTE | ~2023-05-30 | XR_ITS ---
EXAMINATION: XR SHOULDER, RIGHT CLINICAL INFORMATION: Fall with shoulder pain COMPARISON: 12/17/2014 TECHNIQUE: AP external rotation, Grashey, scapular Y, and axillary views of the right shoulder. FINDINGS: There is some mild degenerative changes in the shoulder with some inferior glenoid osteophytes and mild degenerative changes at the AC joint. No fractures or dislocations are seen. No rotator cuff calcifications. When comparison is made to the 12/17/2014 study, there has been no significant interval change. XR/XR shoulder RT min 2V IMPRESSION: Mild degenerative changes in the right shoulder.
[2023-05-30 08:47] VITALS: BP 206/102; PULSE 78; RESP 17; TEMP 36.6; O2SAT 98; BMI 38.7
--- NOTE | 2023-05-30 09:34 | ED_ITS ---
HPI - Extremity Problem General Chief complaint: Extremity Injury, Upper Stated complaint: fell at home r shoulder Time Seen by Provider: 05/30/23 09:29 Source: patient Mode of arrival: ambulatory Limitations: no limitations History of Present Illness HPI Narrative: 67-year-old female with history of osteoarthritis, polymyositis, gout who presents to the ER for evaluation of right shoulder pain after she tripped and fell walking up the stairs yesterday at home. She fell with her hands out and then onto her right shoulder. No head strike or LOC. She is not on a blood thinner. She reports she was able to get up on her own. She has had soreness in the lateral right shoulder since then with difficult with full ROM and sleeping last night. She could not lay on that side. She denies any right elbow or wrist pain. No chest pain, neck pain, abdominal pain or headaches. MD Complaint: joint pain Onset (ago): day(s) (1) Pain Consistency: constant Location: right and upper extremity Severity scale (1-10): 6 Quality: aching Radiation: none Relieving factors: rest Exacerbating factors: range of motion and palpation Associated symptoms: denies other symptoms Related Data Home Medications Medication Instructions Recorded Confirmed acetaminophen 650 mg 650 mg PO Q8H PRN Pain 07/21/20 11/22/22 tablet,extended release atorvastatin 20 mg tablet 20 mg PO DAILY 07/21/20 11/22/22 calcium citrate 315 mg 1 tab PO DAILY 07/21/20 11/22/22 calcium-vitamin D3 6.25 mcg (250 unit) tablet (Citracal + Vitamin D Maximum) furosemide 20 mg tablet 10 mg PO QAM 07/21/20 11/22/22 metoprolol succinate 100 mg 100 mg PO DAILY 07/21/20 11/22/22 tablet,extended release 24 hr vitamin B complex (B 1 tab PO DAILY 07/21/20 11/22/22 Complex-Vitamin B12 tablet) loperamide 2 mg capsule (Imodium 2 mg PO Q6H PRN Diarrhea 01/13/21 11/22/22 A-D) allopurinol 100 mg tablet 100 mg PO DAILY 01/18/22 11/22/22 pantoprazole 40 mg tablet,delayed 40 mg PO DAILY 11/22/22 11/22/22 release Previous Rx's Medication Instructions Recorded leflunomide 10 mg tablet 10 mg PO DAILY #90 tabs 10/06/20 Allergies Allergy/AdvReac Type Severity Reaction Status Date / Time hydroxychloroquine Allergy Severe Rash Verified 05/30/23 08:47 [Plaquenil] methotrexate Allergy Intermediate Diarrhea Verified 05/30/23 08:47 tramadol Allergy Intermediate Diarrhea Verified 05/30/23 08:47 codeine [Codeine] Allergy Mild NAUSEA & Verified 05/30/23 08:47 VOMITING oxycodone Allergy Mild mild Verified 05/30/23 08:47 Review of Systems Review of Systems: Yes all other systems are reviewed and are negative [facility] Past Medical History Medical History DVT (deep venous thrombosis) Eczema Gout Polymyositis Primary osteoarthritis, left hand Primary osteoarthritis, right hand Surgical History H/O colonoscopy Hx of endoscopy Social History Social History Alcohol intake: never Patient Tobacco Use Status: Never used Tobacco e-Cigarette/Vaping Use: Never Used Advance Directives: No Physical Exam Vital Signs: Vital Signs: Last Vital Signs Temp 96.8 F 05/30/23 09:57 Pulse 63 05/30/23 11:16 Resp 18 05/30/23 11:16 BP 187/93 H 05/30/23 11:16 Pulse Ox 99 05/30/23 11:16 O2 Del Method Room Air 05/30/23 11:16 BMI result Body Mass Index 38.7 Appearance: Alert. Oriented X3. No acute distress. HEENT: normal inspection, atruamatic, normocephalic CVS: Normal heart rate and rhythm. Pulses normal. Respiratory: No respiratory distress. Skin: Skin warm and dry. Normal skin color. Normal skin turgor. No rashes. Extremities: normal inspection of bilateral shoulders. right shoulder with tenderness of the anteriolateral aspect of the joint. pain with passive abduction when at 90 degrees, unable to fully abduct. +empty can test. noraml ROM of the right elbow and wrist. NV intact distally. no tenderness of the right scapula Neuro: Oriented X 3. No motor deficit. No sensory deficit. Medications Administered Discontinued Medications Generic Name Dose Route Start Last Admin Trade Name Freq PRN Reason Stop Dose Admin Ketorolac Tromethamine 15 mg 05/30/23 09:59 05/30/23 10:13 Ketorolac Tromethamine 15 Mg/Ml Vial IM 05/30/23 10:00 15 mg ONCE ONE Administration Medical Decision Making Medical Decision Making [facility] Narrative: 67-year-old female with history of osteoarthritis, with myositis chronic gout presents to the ER for evaluation of right lateral shoulder pain after she tripped and fell a walking up the stairs yesterday. No signs of any other injuries. She is hypertensive on arrival. She took her BP meds just prior to coming in. She has no chest pain, headache, vision changes. She is in pain due to her right shoulder injury. X-ray showed some mild degenerative changes, no acute fractures. Exam is consistent with possible shoulder sprain, concern for possible rotator cuff injury as well. Given her pain with range of motion, will place an sling for only short period of time and then we discussed the importance of range of motion and following up with orthopedics if her pain continues. Recommended Motrin and Tylenol along with ice, rest. Her repeat blood pressure did improve to 180 systolic and she remained asymptomatic. She was encouraged follow up with her primary care provider for further evaluation treatment of her blood pressure. She will monitor at home. She is stable for discharge home with outpatient follow-up. Differential Diagnosis Differential Diagnoses: The differential diagnosis associated with the presentation includes humerus fracture, clavicular fracture, tendonitis, bursitis, shoulder sprain, shoulder strain, rotator cuff injury Independent Interpretation I performed an independent interpretation of an: Plain X-Ray Interpretation: no acute fracture or dislocation, agree w/ radiology read Radiology Impression Discussion of test interpretation with radiology: I have reviewed the radiologist's reading. Radiologist Impression: EXAMINATION: XR SHOULDER, RIGHT CLINICAL INFORMATION: Fall with shoulder pain COMPARISON: 12/17/2014 TECHNIQUE: AP external rotation, Grashey, scapular Y, and axillary views of the right shoulder. FINDINGS: There is some mild degenerative changes in the shoulder with some inferior glenoid osteophytes and mild degenerative changes at the AC joint. No fractures or dislocations are seen. No rotator cuff calcifications. When comparison is made to the 12/17/2014 study, there has been no significant interval change. XR/XR shoulder RT min 2V IMPRESSION: Mild degenerative changes in the right shoulder. External Record Review External record reviewed: Outpatient record and Prior outpatient labs Prescription Management I considered prescription management with: Pain Medication Chronic Conditions Patient?s care impacted by: Hypertension Critical Care Time Critical Care Time Critical Care Time: No Discharge Plan Discharge Clinical Impression: Shoulder sprain Qualifiers: Encounter type: initial encounter Shoulder sprain type: unspecified sprain Laterality: right Qualified Code(s): S43.401A - Unspecified sprain of right shoulder joint, initial encounter Patient Disposition: Home, Self-Care Instructions: Shoulder Sprain (ED) Additional Instructions: Your x-ray today showed some mild generative changes of the shoulder, no fractures. Rest your arm and wear the sling for only the next 24-48 hours, then gently start to do range of motion exercises as tolerated. Use ice several times per day for the next 48 hours. Take the Motrin and/or Tylenol as needed for pain. Follow up with your doctor as needed. If no improvement, recommend following up with Orthopedics for further evaluation of your pain. Name and number below. Prescriptions: No Action leflunomide 10 mg tablet 10 mg PO DAILY Qty: 90 1RF loperamide [Imodium A-D] 2 mg capsule 2 mg PO Q6H PRN (Reason: Diarrhea) furosemide 20 mg tablet 10 mg PO QAM atorvastatin 20 mg tablet 20 mg PO DAILY vitamin B complex [B Complex-Vitamin B12] Tablet 1 tab PO DAILY calcium citrate-vitamin D3 [Citracal + D Maximum] 315 mg-6.25 mcg (250 unit) tablet 1 tab PO DAILY metoprolol succinate 100 mg tablet extended release 24 hr 100 mg PO DAILY acetaminophen 650 mg tablet extended release 650 mg PO Q8H PRN (Reason: Pain) pantoprazole 40 mg tablet,delayed release (DR/EC) 40 mg PO DAILY allopurinol 100 mg tablet 100 mg PO DAILY Referrals: [facility] [place] Orthopedic Surgeons [Provider Group] Isaac Gottlieb MD [Primary Care Provider] - Stand Alone Forms: Work/School Release Interventions: ED Discharge Assessment Last Done: 05/30/23 11:27 Discharge Date/Time: 05/30/23 11:39
[2023-05-30 09:57] VITALS: BP 196/90; PULSE 60; RESP 18; TEMP 36; O2SAT 97
[2023-05-30] MEDS: Ketorolac Tromethamine 15 MG/ML VIAL IM (10:13)
[2023-05-30 11:16] VITALS: BP 187/93; PULSE 63; RESP 18; O2SAT 99
== END 2023-05-30 11:39 | disposition home or self-care (01) ==
PROVIDERS: Emergency Provider Emergency Medicine; PCP Internal Medicine
DX: S43.401A Unspecified sprain of right shoulder joint, initial encounter (principal); W17.89XA Other fall from one level to another, initial encounter; Y93.89 Activity, other specified; Y92.9 Unspecified place or not applicable; Y99.9 Unspecified external cause status
CPT/HCPCS: 73030; 96372; 99283; 99284; J1885

== ENCOUNTER 2023-06-06 07:50 | Outpatient (AMB) | payer MEDICARE, OTHER, SELFPAY ==
--- NOTE | 2023-06-06 07:58 | MHC.OFFVIS ---
Intake Vital Signs 06/06/23 08:01 Height 5 ft 1 in Weight 207 lb BMI 39.1 BP 144/78 H Blood Pressure Location Lt brachial Position Sitting Pulse 92 Intake Visit Reasons: 6 Month fu Intake Note: Patient follow up for diarrhea. Patient cc: diarrhea and swallowing problems with water and liquid on and off. 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 03/2021 ABD US SHOWED: Slightly enlarged echogenic liver probably representing fatty infiltration. Normal-appearing gallbladder. No gallstones seen. Mild bilateral renal cortical thinning. Limited visualization of the tail of the pancreas. ENDOSCOPIC STUDIES:?10/09/21 EGD SHOWED: ESOPHAGUS: GE junction at 35 cms, small hiatal hernia 35 to 37 cms. Focal esophagitis at GEJ with partially obstructing Schatzki's ring/focal stricture. Esophageal balloon dilation was performed with a 19 mm (54 F) CRE balloon for 60 seconds. Biopsies were obtained from proximal esophagus to check for EOE STOMACH: Mild Gastritis - biopsied to check for H Pylori/eosinophilic gastroenteritis DUODENUM: Mild duodenitis in the bulb and normal descending duodenum. Biopsies were obtained from 3rd part of the duodenum to check for celiac sprue/eosinophilic gastroenteritis Plan:? Start Famotidine 20 mg twice daily for GERD. Repeat EGD with dilation as needed for recurrent dysphagia 02/2019 colonoscopy was performed by Dr. Garrett?and showed mild sigmoid diverticulosis. A less than 5 mm sessile hyperplastic polyp was removed at 15 cm. 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 Admits to taking salads and raw fruits and vegetables and advised to cut back Fell last week and hurt her right shoulder - taking tylenol for pain. Continues to have 6-7 BMs a day. Diarrhea is a lot better than in the past. Has not tried imodium Treated with prednisone in the past for drug allergy and does not recall if diarrhea improved with prednisone. PAST VISITS: Took pancreatic enzymes for a week and stopped due to gout exacerbation (noted tingling in the toes) No change in diarrhea while taking the enzymes She was prescribed Pantoprazole once a day by her PCP with improvement in diarrhea Continues to have 5-6 BMs in the morning (upto 7 small BMs a day) Notes urgency with explosive BMs daily. Has to wear a pad. Feels a lot better than she was Swallowing is better Takes smaller meals and does not eat after 7 pm. I am good and I am bad Diarrhea has been worse past 2 months. Went 5 times before 10 am this morning. Has 9 to 10 BM s a day - watery to loose stools Stools are never fully formed and associated with urgency Taking Famotidine one in the morning and one at night. PAST VISIT: feeling much better - some times she has to tobias to the bathroom Having a BM 5 to 6 times a day. Taking Famotidine twice a day which seems to help the diarrhea. Has a BM after she eats. Had a few episodes of diarrhea - one after she ate a lot of peanuts. Notes a pinching sensation since she started taking the famotidine. Denies heartburn and notes intermittent regurgitation of food with dysphagia Started taking the Famotidine Saturday night has not had the diarrhea since she had the endoscopy Feels constipated - no BM yesterday and had a BM at 3 am today. Had diarrhea last 2 weeks with 7 to 8 BMs a day. Took protonix for 5-6 years and stopped taking it after she stopped drinking soda Chronic diarrhea x 10 yrs - feels better now Last round was the worse. Diarrhea is intermittent - had 15 to 20 BMs a day Having 4 -5 BMs a day at present. BMs are watery to loose without blood or mucous. Complains of diarrhea during the day and night. Denies fever, chills, abdominal pain, sweating, flushing or wt loss Denies association of diarrhea with milk products. Tried Dairy free and GFD x 1 month without change in diarrhea. Gets heartburn once in? while. Better since she stopped drinking soda. Patient denies symptoms of dysphagia, nausea, vomiting, change in appetite or weight. Gets acid reflux if she eats too fast and throws up her food - once in a while. Patient denies major cardiac or pulmonary problems, loud snoring or sleep apnea Denies problems with anesthesia in the past - got sick after her colonoscopy and after spinal surgery. Unable to take pain medications since she gets sick. Denies being on chronic anticoagulation. Patient denies known family history of IBD, colon polyps, colon cancer or other GI malignancies. 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[employer] [facility] Medical History DVT (deep venous thrombosis) Eczema Gout Polymyositis Primary osteoarthritis, left hand Primary osteoarthritis, right hand Surgical History Hx of endoscopy H/O colonoscopy Social History Alcohol intake: never Patient Tobacco Use Status: Never used Tobacco e-Cigarette/Vaping Use: Never Used Review of Systems Const All systems reviewed & are unremarkable except as noted in HPI and below Physical Exam Vital Signs: Last Vital Signs Pulse 92 06/06/23 08:01 BP 144/78 H 06/06/23 08:01 BMI result Body Mass Index 39.1 Const General: healthy appearing and no acute distress Nutritional Appearance: obese Orientation/consciousness: patient oriented x3 Limitations: no limitations HEENT Head: Yes normal to inspection Ears: hearing grossly normal bilaterally Eyes Sclerae: sclerae normal Pupils: Equal, round and reactive pupils present Neck Neck: Yes normal visual inspection Chest Chest palpation & inspection: normal inspection of the chest Resp Effort & Inspection: normal respiratory effort Auscultation: clear to auscultation bilaterally Cardio Palpation: normal PMI Rate: regular rate Rhythm: regular rhythm Heart sounds: S1 normal heart sound present, S2 normal heart sound present and no murmurs GI Palpation (GI): Soft to palpation, nontender and No hepatosplenomegaly present Auscultation: normal bowel sounds Rectal Exam - Female: deferred Skin General skin exam: no rashes or lesions noted Neuro General: patient oriented x3, gait normal and moves all extremities Cranial nerves: Yes Equal, round and reactive pupils present Psych Appearance: grossly normal Mental Status: mental status grossly normal Assessment & Plan Assessment & Plan (1) Diarrhea: Comment: Has a BM after she eats. Had a few episodes of diarrhea - one after she ate a lot of peanuts. Code(s): R19.7 - Diarrhea, unspecified Qualifiers: Diarrhea type: unspecified type Qualified Code(s): R19.7 - Diarrhea, unspecified (2) Colon cancer screening: Comment: 02/2019 colonoscopy was performed by Dr. Garrett and a hyperplastic polyp was removed. Random biopsies obtained from the right and left colon were normal. Repeat colonoscopy in 10 years due 02/2029 Code(s): Z12.11 - Encounter for screening for malignant neoplasm of colon Plan 67 YF with gout and polymyositis followed in GI since Jan, 2021 by Chantelle Mccormick NP for chronic diarrhea Past workup was negative for celiac disease, C diff colitis, fecal leococytes and calprotectin were normal. Her symptoms may be due to small intestinal bacterial overgrowth or malabsorption. Stool for fat stain was normal - stool fat is elevated in patients with malabsoprtion and SIBO. Pancreatic elastase was 500 (likely due to stool contamination with urine) ?Vitamin B 12 was normal and Vitamin D was low - pt started on Vitamin D supplement Has tried GFD and FODMAP diet in the past without improvement in symptoms Pt reports feeling much better - some times she has to tobias to the bathroom Having a BM 5 to 6 times a day. Started on pantoprazole daily for GERD which seems to help the diarrhea. Has a BM after she eats. Had a few episodes of diarrhea in the past - one after she ate a lot of peanuts. EGD was performed and results as noted above. Diarrhea has improved She was advised a trail of pancreatic enzymes for diarrhea and had to stop after a week due to exacerbation of gout symptoms. 06/06/23 Pt advised a trail of imodium 1 tab every other day If this is not hepful, trail of antibiotics for SIBO Elevated eosinophil count - reviewed option for laparoscopic full-thickness biopsy to rule out eosinophilic gastroenteritis. Patient prefers to follow her symptoms for now since severity of diarrhea has improved over time. Follow-up appointment in 4 months - FU of GERD and chronic diarrhea Coding Level of Care Code Est Pt Level 4 (46980) Diagnoses Diarrhea, unspecified type R19.7 Diarrhea type: unspecified type Colon cancer screening Z12.11 Time Spent (min) 20
[2023-06-06 08:01] VITALS: BP 144/78; PULSE 92; BMI 39.1
== END 2023-06-06 08:31 | disposition home or self-care (01) ==
PROVIDERS: PCP Internal Medicine; Visit Provider Internal Medicine Gastroenterology
DX: R19.7 Diarrhea, unspecified (principal); Z12.11 Encounter for screening for malignant neoplasm of colon
CPT/HCPCS: 99214

== ENCOUNTER → 2023-06-06 07:50 | Outpatient (BNVA) | payer MEDICARE, OTHER, SELFPAY | PROVIDERS: PCP Internal Medicine; Visit Provider Internal Medicine Gastroenterology | DX: R19.7 Diarrhea, unspecified (principal); K21.9 Gastro-esophageal reflux disease without esophagitis | CPT/HCPCS: 99212 ==

== ENCOUNTER 2023-07-25 14:01 | Outpatient (AMB) | payer MEDICARE, OTHER, SELFPAY ==
[2023-07-25 14:12] VITALS: BMI 39.1
--- NOTE | 2023-07-25 14:12 | A.OFFVIS_ITS ---
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 The patient states that she 1st injured her shoulder approximately 1 year ago while lifting heavy object. She reaggravated her shoulder several months ago when she fell at her brother's house. The patient states for the last 6 months she has had difficulty lifting her right hand above shoulder height. She has done physical therapy for 12 weeks over the last 6 months which aggravated her pain. She has also tried Tylenol and anti- inflammatory medicines which gave her minimal relief. She has had injections in the past which gave her no relief. Allergies hydroxychloroquine [Plaquenil] Allergy (Severe, Verified 07/25/23 14:15) Rash methotrexate Allergy (Intermediate, Verified 07/25/23 14:15) Diarrhea tramadol Allergy (Intermediate, Verified 07/25/23 14:15) Diarrhea codeine [Codeine] Allergy (Mild, Verified 07/25/23 14:15) NAUSEA & VOMITING oxycodone Allergy (Mild, Verified 07/25/23 14:15) mild Medication List - Last Reconciled 07/25/23 by Alejandro Miner MD acetaminophen ER 650 mg PO Q8H PRN acetaminophen-codeine 300-30 mg 1 tab PO Q8H PRN allopurinol 100 mg PO DAILY atorvastatin 20 mg PO DAILY calcium citrate-vitamin D3 315 mg-6.25 mcg (250 unit) (Citracal + Vitamin D Maximum) 1 tab PO DAILY furosemide 10 mg PO QAM leflunomide 10 mg PO DAILY loperamide (Imodium A-D) 2 mg PO Q6H PRN metoprolol succinate ER 100 mg PO DAILY pantoprazole 40 mg PO DAILY vitamin B complex (B Complex-Vitamin B12 tablet) 1 tab PO DAILY PFSH Medical History DVT (deep venous thrombosis) Eczema Gout Polymyositis Primary osteoarthritis, left hand Primary osteoarthritis, right hand Surgical History Hx of endoscopy H/O colonoscopy Social History (Updated 07/25/23 @ 14:16 by GLORIA Ku) Alcohol intake: never Patient Tobacco Use Status: Never used Tobacco e-Cigarette/Vaping Use: Never Used Current occupational status: retired and disabled 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 Physical Exam Vital Signs: BMI result Body Mass Index 39.1 Const Other: Well-nourished well-developed very friendly female awake alert and oriented x3 in no acute distress Extrem Other: Bilateral upper extremity examination shows good capillary refill, no skin lesions noted, normal sensation light touch Right shoulder examination shows decreased range of motion when compared to her left shoulder, 3/5 strength with supraspinatus testing, positive impingement signs, tenderness over her acromioclavicular joint, no instability Results Reviewed Results Reviewed: X-rays of the patient's right shoulder show severe acromioclavicular joint narrowing, a type 2 acromion, no acute bony abnormalities Assessment & Plan Assessment & Plan (1) Impingement of right shoulder: Code(s): M25.811 - Other specified joint disorders, right shoulder Plan: Ms. Frias presents with right shoulder pain and weakness due to impingement syndrome, acromioclavicular joint arthritis and possible full-thickness rotator cuff tearing. Thus, I will send the patient for an MRI of her right shoulder for further evaluation of her rotator cuff tendons. If she does have a full- thickness tear I will recommend surgical repair to optimize her future functional level. I will see her back once the MRI is completed to discuss the findings and treatment options. Feel free to call me at any time should questions regarding her orthopedic management arise. Thank you very much for asking me to see this very friendly patient. I spent 22 minutes in reviewing the patient's records and imaging studies, seeing the patient and documenting in the medical record. Orders: Orders MR shoulder RT wo con Today M25.311 - Other instability, right shoulder Medications: New acetaminophen-codeine 300-30 mg 1 tab PO Q8H PRN 30 tabs 0RF pain Coding Level of Care Code New Pt Level 2 (18662) Diagnoses Impingement of right shoulder M25.811
== END 2023-07-25 14:47 | disposition home or self-care (01) ==
PROVIDERS: PCP Internal Medicine; Visit Provider Orthopaedic Surgery
DX: M25.811 Other specified joint disorders, right shoulder (principal)
CPT/HCPCS: 99202

== ENCOUNTER → 2023-07-25 14:01 | Outpatient (BNVA) | payer MEDICARE, OTHER, SELFPAY | PROVIDERS: PCP Internal Medicine; Visit Provider Orthopaedic Surgery | DX: M25.811 Other specified joint disorders, right shoulder (principal) | CPT/HCPCS: 99202 ==

== ENCOUNTER 2023-08-12 10:17 | Emergency (ER) | payer MEDICARE, OTHER, SELFPAY ==
--- NOTE | ~2023-08-12 | US_ITS ---
EXAMINATION: US VENOUS ULTRASOUND WITH DOPPLER LOWER EXTREMITY, LEFT CLINICAL INFORMATION: Pain and swelling. COMPARISON: None available. TECHNIQUE: Ultrasound of the deep veins is performed from the hip to the calf with compression sonography and color and pulse Doppler assessment. Spectral analysis with color-flow imaging is performed. FINDINGS: There is normal venous compression and respiratory variation and augmented flow. The visualized common femoral vein, superficial femoral vein, profunda femoral vein, popliteal vein, and the trifurcation region shows no evidence of deep venous thrombosis. The left peroneal vein and the posterior tibial vein are subtle optimally visualized due to calf edema. There varicose veins with thrombus visualized in the calf region suggestive of superficial thrombophlebitis. If the patient's symptoms persist, followup ultrasound in 5 days 7 days might be of value to exclude proximal propagation from a non-visualized calf vein. US/US venous duplex LE IMPRESSION: 1. No DVT demonstrated in the left lower extremity. 2. There is calf edema seen in the left calf. The posterior tibial vein and peroneal vein are not well visualized due to calf edema. 3. There are varicose veins with thrombus visualized in the left mid calf region suggestive of superficial thrombophlebitis. If patient's symptoms persist, followup ultrasound in 5 days 7 days might be of value to exclude proximal propagation from a non-visualized calf vein.
[2023-08-12 10:47] VITALS: BP 185/111; PULSE 106; RESP 18; TEMP 36.6; O2SAT 99; BMI 37.8
[2023-08-12 11:24] LABS: MANUAL DIFF FLAG NO
[2023-08-12 11:34] LABS: Basophils Absolute Auto 0.1 X10*3/uL (0.0-0.2); Basophils Percent Auto 1.8 % (0-2); Eosinophils Absolute Auto 0.5 X10*3/uL (0.0-0.4); Eosinophils Percent Auto 8.4 % (0-4); Hematocrit 35.5 % (37.0-47.0); Hemoglobin 11.5 g/dl (12.0-16.0); Imm Gran Abs Auto 0.02 X10*3/uL (0.00-0.03); Imm Gran Pct Auto 0.3 % (0.0-0.4); Lymphocytes Absolute Auto 1.3 X10*3/uL (1.2-4.9); Lymphocytes Percent Auto 21.1 % (20-40); Mean Corpuscular HGB Conc 32.4 g/dl (31.0-35.0); Mean Corpuscular Hemoglobin 31.9 pg (27.0-33.0); Mean Corpuscular Volume 98.3 fL (80.0-98.0); Mean Platelet Volume 9.4 fL (9.4-12.3); Monocytes Absolute Auto 0.7 X10*3/uL (0.1-1.2); Monocytes Percent Auto 12.1 % (2-11); Neutrophils Absolute Auto 3.4 x10*3/uL (2.0-8.3); Neutrophils Percent Auto 56.3 % (45-73); Platelet Count 274 X10*3/uL (160-400); Red Blood Count 3.61 X10*6/uL (4.20-5.50); Red Cell Distribution Width 14.1 % (11.0-16.0); White Blood Count 6.1 X10*3/uL (4.8-10.8)
[2023-08-12 11:40] LABS: Alanine Aminotransferase 11 U/L (0-31); Albumin Level 3.6 g/dL (3.5-5.0); Alkaline Phosphatase 83 U/L (39-117); Anion Gap 16 (12-20); Aspartate Amino Transferase 24 U/L (5-31); Bilirubin Total 0.9 mg/dL (0.0-1.0); Blood Urea Nitrogen 12 mg/dL (9-16); C Reactive Protein 3.06 mg/dL (< or = 0.50); Calcium 9.5 mg/dL (8.4-10.2); Carbon Dioxide 23 mmol/L (22-29); Chloride 110 mmol/L (96-108); Creatinine Clr Calc Pharmacy 69.1; Estimated Glomerular Filt Rate > 60; Glucose Random 83 mg/dL (60-115); Potassium 3.7 mmol/L (3.3-5.1); Sodium 145 mmol/L (135-145); Total Protein 6.8 g/dL (6.5-8.0)
[2023-08-12 12:06] LABS: INTERNATIONAL NORM RATIO 1.1 (0.9-1.1); Prothrombin Time 13.2 SEC (11.1-13.3)
[2023-08-12 12:09] LABS: Partial Thromboplastin Time 32.5 SEC (26.0-36.4)
[2023-08-12 12:29] LABS: Erythrocyte Sedimentation Rate 79 MM/HR (0-20)
[2023-08-12 13:59] VITALS: BP 187/93; PULSE 95; RESP 16; TEMP 37; O2SAT 97
--- NOTE | 2023-08-12 13:59 | ED_ITS ---
HPI - General Adult General Chief complaint: Extremity Problem Stated complaint: l leg infection sent in by pcp Time Seen by Provider: 08/12/23 13:59 Source: patient Mode of arrival: wheelchair Limitations: no limitations History of Present Illness HPI narrative: Patient is a 67 year old assigned female at with a history of gout presenting to the emergency department today with left lower leg swelling and pain. Patient states that over the last 3 days she has had left lower leg erythema, swelling, and pain. Patient states that she has a history of DVT many years ago for which she used to be on anticoagulation medication but is no longer on them now. Patient denies any dizziness, lightheadedness, abdominal pain, nausea, vomiting, fever, chills, blurry vision, double vision, loss of vision, chest pain, difficulty breathing, shortness of breath, back pain, night sweats, pain with urination, increased urinary frequency, increased urinary urgency, blood in her urine or stool, syncope or a near syncopal episode, recent trauma or falls, bowel incontinence, bladder incontinence, bowel retention, bladder retention, or any other complaints at this time. Onset (ago): day(s) (3) Location: left and lower extremity Severity: mild Severity scale (1-10): 3 Quality: aching and dull Pain Consistency: constant Relieving factors: none Exacerbating factors: none Associated symptoms: denies other symptoms Treatments prior to arrival: none Related Data Home Medications Medication Instructions Recorded Confirmed acetaminophen 650 mg 650 mg PO Q8H PRN Pain 07/21/20 07/25/23 tablet,extended release atorvastatin 20 mg tablet 20 mg PO DAILY 07/21/20 07/25/23 calcium citrate 315 mg 1 tab PO DAILY 07/21/20 07/25/23 calcium-vitamin D3 6.25 mcg (250 unit) tablet (Citracal + Vitamin D Maximum) furosemide 20 mg tablet 10 mg PO QAM 07/21/20 07/25/23 metoprolol succinate 100 mg 100 mg PO DAILY 07/21/20 07/25/23 tablet,extended release 24 hr vitamin B complex (B 1 tab PO DAILY 07/21/20 07/25/23 Complex-Vitamin B12 tablet) loperamide 2 mg capsule (Imodium 2 mg PO Q6H PRN Diarrhea 01/13/21 07/25/23 A-D) allopurinol 100 mg tablet 100 mg PO DAILY 01/18/22 07/25/23 pantoprazole 40 mg tablet,delayed 40 mg PO DAILY 11/22/22 07/25/23 release Previous Rx's Medication Instructions Recorded leflunomide 10 mg tablet 10 mg PO DAILY #90 tabs 10/06/20 acetaminophen 300 mg-codeine 30 mg 1 tab PO Q8H PRN pain #30 tabs 07/25/23 tablet cefuroxime axetil 250 mg tablet 250 mg PO BID 7 days #14 tabs 08/12/23 prednisone 20 mg tablet 20 mg PO DAILY 7 days #7 tabs 08/12/23 Allergies Allergy/AdvReac Type Severity Reaction Status Date / Time hydroxychloroquine Allergy Severe Rash Verified 08/12/23 10:46 [Plaquenil] methotrexate Allergy Intermediate Diarrhea Verified 08/12/23 10:46 tramadol Allergy Intermediate Diarrhea Verified 08/12/23 10:46 codeine [Codeine] Allergy Mild NAUSEA & Verified 08/12/23 10:46 VOMITING oxycodone Allergy Mild mild Verified 08/12/23 10:46 Review of Systems 2 Constitutional: Constitutional: Reports no additional constitutional complaints, Denies chills, Denies fever(s) and Denies night sweats Eyes: Eyes: Reports no additional eye complaints, Denies blurry vision, Denies change in vision, Denies diplopia, Denies eye discharge, Denies loss of vision and Denies eye pain ENT: Denies dizziness Cardiovascular: Cardiovascular: Reports no additional cardiovascular complaints, Denies chest pain, Denies lightheadedness, Denies Loss of Consciousness and Denies dyspnea Respiratory: Respiratory: Reports no additional respiratory complaints and Denies dyspnea Gastrointestinal: Gastrointestinal: Reports no additional gastrointestinal complaints, Denies abdominal pain, Denies melena, Denies hematochezia, Denies change in bowel habits and Denies change in stool character Genitourinary: Genitourinary: Denies hematuria, Denies urinary frequency, Denies dysuria, Denies urinary incontinence, Denies urinary hesitancy and Denies urinary urgency Musculoskeletal: Musculoskeletal: Reports no additional musculoskeletal complaints, Denies numbness and Denies tingling Comments: left lower leg pain, swelling, and erythema Neurologic: Denies dizziness, Denies loss of vision, Denies numbness and Denies tingling Psychiatric: Psychiatric: Reports no additional psychiatric complaints Endocrine: Endocrine: Reports no additional endocrine complaints Hematologic/Lymphatic: Hematologic/Lymphatic: Reports no additional hematologic/lymphatic complaints Allergic/Immunologic: Allergic/Immunologic: Reports no additional allergic/immunologic complaints [facility] Past Medical History Attestation statement: The following information was validated with the patient. 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 Physical Exam ED Vital Signs: Vital Signs - 24 hr 08/12/23 10:47 08/12/23 13:59 Temperature 97.9 F 98.6 F Pulse Rate 106 H 95 Respiratory Rate 18 16 Blood Pressure 185/111 H 187/93 H Pulse Oximetry 99 97 Oxygen Delivery Method Room Air Room Air BMI result Body Mass Index 37.8 Const General: cooperative, no acute distress, alert and awake Nutritional Appearance: well nourished Orientation/consciousness: patient oriented x3 Limitations: no limitations HENMT Head: Yes normal to inspection and Yes atraumatic Ears: hearing grossly normal bilaterally and external ears normal General nose exam: Normal external nose present, no nasal discharge noted and no epistaxis Face and sinus: Yes normal facial exam, No abrasion and No laceration Mouth: Normal oral and palatal mucosa present, no drooling and no muffled voice Eyes General: appearance normal, both eyes and all related structures Periorbital: periorbital findings normal Eyelids: Yes eyelids normal Conjunctivae: conjunctivae normal Pupils: Equal, round and reactive pupils present EOM: EOMs intact bilaterally Neck Neck: Yes normal visual inspection, Yes full ROM and Yes no lymphadenopathy Chest Chest palpation & inspection: normal inspection of the chest Resp Effort & Inspection: normal respiratory effort and able to speak in complete sentences GI Inspection: Yes normal to inspection Neuro General: patient oriented x3 and moves all extremities Cranial nerves: Yes Equal, round and reactive pupils present Cognition (Neuro): normal cognition Motor exam (neuro): 5/5 motor strength present throughout Sensory Exam: Normal double simultaneous stimulation for sensation Coordination: [id number] test normal Extrem Other: left lower extremity erythema with multiple small areas of open skin, left lower leg warmth, and left lower leg swelling General: Yes full ROM and Yes capillary refill normal Psych Appearance: grossly normal Mental Status: mental status grossly normal Affect: normal affect Attitude: cooperative Thought process: Normal thought process present Thought content: Normal thought content present Insight: Good insight present (Psych) Medical Decision Making Medical Decision Making MDM Narrative: Patient is a 67 year old assigned female at with a history of gout presenting to the emergency department today with left lower leg pain. Patient's physical exam was as noted in the physical exam portion of this note. Patient's blood work showed an elevated CRP of 3.06 and an ESR of 79. Patient's lab work was otherwise unremarkable. Patient's left lower leg US showed no DVT but did show thrombophlebitis. Given the patient's elevated ESR, CRP, and open areas on the left lower leg, will cover for cellulitis as well as thrombophlebitis. I explained my physical exam findings as well as all test results to the patient. I answered all questions asked by the patient. I stressed the importance of the patient taking her medication as prescribed. I stressed the importance of the patient following up with her primary care provider. I stressed the importance of the patient returning to the emergency department immediately if her symptoms were to worsen or if she were to develop any dizziness, shortness of breath, difficulty breathing, chest pain, blurry vision, loss of vision, nausea, vomiting, abdominal pain, fever, chills, back pain, or any other complaints. Patient verbalized agreement and understanding with this treatment plan and discharge. Differential Diagnosis Differential Diagnoses: The differential diagnosis associated with the presentation includes Cellulitis DVT Thrombophlebitis Admission/Observation Consideration of admission/observation: Escalation of care including admission/observation considered Patient would have been admitted to the hospital had her work up had any findings where hospital admission was appropriate and her clinical presentation warranted hospital admission. Lab Data [facility] Lab Attestation statement: I reviewed the patient's lab results. My interpretation of these results are in the MDM Rationale portion of this note. 08/12/23 11:18 08/12/23 11:18 Labs: Lab Results 08/12/23 Range/Units 11:18 WBC 6.1 (4.8-10.8) X10*3/uL RBC 3.61 L (4.20-5.50) X10*6/uL Hgb 11.5 L (12.0-16.0) g/dl Hct 35.5 L (37.0-47.0) % MCV 98.3 H (80.0-98.0) fL MCH 31.9 (27.0-33.0) pg MCHC 32.4 (31.0-35.0) g/dl RDW 14.1 (11.0-16.0) % Plt Count 274 D (160-400) X10*3/uL MPV 9.4 (9.4-12.3) fL Immature Gran % (Auto) 0.3 (0.0-0.4) % Neut % (Auto) 56.3 (45-73) % Lymph % (Auto) 21.1 (20-40) % Hartley % (Auto) 12.1 H (2-11) % Eos % (Auto) 8.4 H (0-4) % Baso % (Auto) 1.8 (0-2) % Lymph # (Auto) 1.3 (1.2-4.9) X10*3/uL Hartley # (Auto) 0.7 (0.1-1.2) X10*3/uL Eos # (Auto) 0.5 H (0.0-0.4) X10*3/uL Baso # (Auto) 0.1 (0.0-0.2) X10*3/uL Abs Immat Gran (auto) 0.02 (0.00-0.03) X10*3/uL Absolute Neuts (auto) 3.4 (2.0-8.3) x10*3/uL Absolute Nucleated RBC 0.000 (0.0-0.012) X10*3/uL Nucleated RBC % (auto) 0.0 (0.0-0.2) /100WBC ESR 79 H (0-20) MM/HR PT 13.2 (11.1-13.3) SEC INR 1.1 (0.9-1.1) APTT 32.5 (26.0-36.4) SEC Sodium 145 (135-145) mmol/L Potassium 3.7 (3.3-5.1) mmol/L Chloride 110 H (96-108) mmol/L Carbon Dioxide 23 (22-29) mmol/L Anion Gap 16 (12-20) BUN 12 (9-16) mg/dL Creatinine 0.81 (0.5-1.4) mg/dL Estim Creat Clear Calc 69.1 Estimated GFR > 60 Random Glucose 83 (60-115) mg/dL Calcium 9.5 (8.4-10.2) mg/dL Total Bilirubin 0.9 (0.0-1.0) mg/dL AST 24 (5-31) U/L ALT 11 (0-31) U/L Alkaline Phosphatase 83 (39-117) U/L C-Reactive Protein 3.06 H (< or = 0.50) mg/dL Total Protein 6.8 (6.5-8.0) g/dL Albumin 3.6 (3.5-5.0) g/dL Independent Interpretation I performed an independent interpretation of an: Ultrasound Interpretation: My interpretation is in agreement with the radiologist's impression of this imaging study. - EXAMINATION: US VENOUS ULTRASOUND WITH DOPPLER LOWER EXTREMITY, LEFT CLINICAL INFORMATION: Pain and swelling. COMPARISON: None available. TECHNIQUE: Ultrasound of the deep veins is performed from the hip to the calf with compression sonography and color and pulse Doppler assessment. Spectral analysis with color-flow imaging is performed. FINDINGS: There is normal venous compression and respiratory variation and augmented flow. The visualized common femoral vein, superficial femoral vein, profunda femoral vein, popliteal vein, and the trifurcation region shows no evidence of deep venous thrombosis. The left peroneal vein and the posterior tibial vein are subtle optimally visualized due to calf edema. There varicose veins with thrombus visualized in the calf region suggestive of superficial thrombophlebitis. If the patient's symptoms persist, followup ultrasound in 5 days 7 days might be of value to exclude proximal propagation from a non-visualized calf vein. US/US venous duplex LE IMPRESSION: 1. No DVT demonstrated in the left lower extremity. 2. There is calf edema seen in the left calf. The posterior tibial vein and peroneal vein are not well visualized due to calf edema. 3. There are varicose veins with thrombus visualized in the left mid calf region suggestive of superficial thrombophlebitis. If patient's symptoms persist, followup ultrasound in 5 days 7 days might be of value to exclude proximal propagation from a non-visualized calf vein. Dictated By: Zachariah Nolasco MD Signed By: Electronically signed by Zachariah Nolasco MD 08/12/23 1300 Radiology Impression Discussion of test interpretation with radiology: I have reviewed the radiologist's reading. Prescription Management I considered prescription management with: Antibiotic (patient prescribed an antibiotic to cover for cellulitis.) Discharge Plan Discharge Clinical Impression: Thrombophlebitis, Cellulitis, Pain and swelling of left lower leg Patient Disposition: Home, Self-Care Instructions: Cellulitis (DC), Superficial Thrombophlebitis (ED) Additional Instructions: Your US of your left lower leg showed evidence of superficial thrombophlebitis however, if symptoms persist, you need a repeat US in 5-7 days. Follow up with your primary care provider. Return to the emergency department immediately if your symptoms worsen or if you develop any dizziness, shortness of breath, difficulty breathing, chest pain, blurry vision, loss of vision, nausea, vomiting, abdominal pain, fever, chills, back pain, or any other complaints. Prescriptions: New cefuroxime axetil 250 mg tablet 250 mg PO BID 7 Days Qty: 14 0RF prednisone 20 mg tablet 20 mg PO DAILY 7 Days Qty: 7 0RF No Action leflunomide 10 mg tablet 10 mg PO DAILY Qty: 90 1RF loperamide [Imodium A-D] 2 mg capsule 2 mg PO Q6H PRN (Reason: Diarrhea) furosemide 20 mg tablet 10 mg PO QAM atorvastatin 20 mg tablet 20 mg PO DAILY vitamin B complex [B Complex-Vitamin B12] Tablet 1 tab PO DAILY calcium citrate-vitamin D3 [Citracal + D Maximum] 315 mg-6.25 mcg (250 unit) tablet 1 tab PO DAILY metoprolol succinate 100 mg tablet extended release 24 hr 100 mg PO DAILY acetaminophen 650 mg tablet extended release 650 mg PO Q8H PRN (Reason: Pain) pantoprazole 40 mg tablet,delayed release (DR/EC) 40 mg PO DAILY allopurinol 100 mg tablet 100 mg PO DAILY acetaminophen-codeine 300-30 mg tablet 1 tab PO Q8H PRN (Reason: pain) Qty: 30 0RF Referrals: Isaac Gottlieb MD [Primary Care Provider] - Interventions: ED Discharge Assessment Last Done: 08/12/23 14:04 Discharge Date/Time: 08/12/23 14:05 Print Language: Japanese
== END 2023-08-12 14:05 | disposition home or self-care (01) ==
PROVIDERS: Physician Assistant Medical; Emergency Provider Emergency Medicine; PCP Internal Medicine
DX: I80.3 Phlebitis and thrombophlebitis of lower extremities, unspecified (principal); R60.0 Localized edema; M79.605 Pain in left leg; Z79.899 Other long term (current) drug therapy
CPT/HCPCS: 36415; 80053; 85025; 85610; 85652; 85730; 86140; 93971; 99282; 99284

== ENCOUNTER 2023-08-20 13:01 | Outpatient (AMB) | payer MEDICARE, OTHER, SELFPAY ==
--- NOTE | 2023-08-20 13:02 | A.OFFVIS_ITS ---
Intake Vital Signs 08/20/23 13:03 Height 5 ft 1 in Weight 200 lb BMI 37.8 Intake Visit Reasons: OV-right shoulder MRI review Intake Note: Karol is a 67 year old female who presents today for an MRI review of her right Shoulder. She reports that she was in the hospital for an infection in the leg but has since finished abx and steroids. Patient describes her right shoulder pain as sharp and severe in nature. She has difficulty lifting her right hand above shoulder height. She has done physical therapy exercises which aggravated her pain. She has also tried Tylenol and anti-inflammatory medicines which gave her minimal relief. Allergies hydroxychloroquine [Plaquenil] Allergy (Severe, Verified 08/20/23 13:07) Rash methotrexate Allergy (Intermediate, Verified 08/20/23 13:07) Diarrhea tramadol Allergy (Intermediate, Verified 08/20/23 13:07) Diarrhea codeine [Codeine] Allergy (Mild, Verified 08/20/23 13:07) NAUSEA & VOMITING oxycodone Allergy (Mild, Verified 08/20/23 13:07) mild Medication List - Last Reconciled 08/21/23 by Alejandro Miner MD acetaminophen ER 650 mg PO Q8H PRN acetaminophen-codeine 300-30 mg 1 tab PO Q8H PRN allopurinol 100 mg PO DAILY atorvastatin 20 mg PO DAILY calcium citrate-vitamin D3 315 mg-6.25 mcg (250 unit) (Citracal + Vitamin D Maximum) 1 tab PO DAILY cefuroxime axetil 250 mg PO BID 7 days furosemide 10 mg PO QAM leflunomide 10 mg PO DAILY loperamide (Imodium A-D) 2 mg PO Q6H PRN metoprolol succinate ER 100 mg PO DAILY pantoprazole 40 mg PO DAILY prednisone 20 mg PO DAILY 7 days vitamin B complex (B Complex-Vitamin B12 tablet) 1 tab PO DAILY PFSH Medical History Colon cancer screening Diarrhea Cough Eczema DVT (deep venous thrombosis) Primary osteoarthritis, right hand Primary osteoarthritis, left hand Gout Polymyositis Surgical History Hx of endoscopy H/O colonoscopy Social History Alcohol intake: never Patient Tobacco Use Status: Never used Tobacco e-Cigarette/Vaping Use: Never Used Current occupational status: retired and disabled 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 Physical Exam Vital Signs: BMI result Body Mass Index 37.8 Const Other: Well-nourished well-developed very friendly female awake alert and oriented x3 in no acute distress Extrem Other: Bilateral upper extremity examination shows good capillary refill, no skin le sions noted, normal sensation light touch Right shoulder examination shows decreased active range of motion but almost full passive range of motion when compared to her left shoulder, 4/5 strength with supraspinatus testing, positive impingement signs, tenderness over her acromioclavicular joint, no instability Results Reviewed Results Reviewed: MRI of the patient's right shoulder show severe acromioclavicular joint narrowing, a type 2 acromion, a full-thickness rotator cuff tear Assessment & Plan Assessment & Plan (1) Impingement of right shoulder: Code(s): M25.811 - Other specified joint disorders, right shoulder Plan Ms. Frias presents with progressively worsening right shoulder pain and weakness due to impingement syndrome, acromioclavicular joint arthritis and a full-thickness rotator cuff tear. I had a lengthy discussion with the patient regarding treatment options. At this point she has failed continued non operative treatments. The risks and benefits of right shoulder surgery were discussed at length with the patient. The patient wishes to proceed with surgery. Surgery will most likely involve right shoulder diagnostic arthroscopy with distal clavicle excision, acromioplasty and rotator cuff repair. She will contact my office to pick a surgery date. She will follow-up as instructed. Feel free to call me at any time should questions regarding her orthopedic management arise. I spent 22 minutes in reviewing the patient's records and imaging studies, seeing the patient and documenting in the medical record. Coding Level of Care Code Est Pt Level 2 (94831) Diagnoses Impingement of right shoulder M25.811
[2023-08-20 13:03] VITALS: BMI 37.8
== END 2023-08-20 13:46 | disposition home or self-care (01) ==
PROVIDERS: PCP Internal Medicine; Visit Provider Orthopaedic Surgery
DX: M25.811 Other specified joint disorders, right shoulder (principal)
CPT/HCPCS: 99212

== ENCOUNTER → 2023-08-20 13:01 | Outpatient (BNVA) | payer MEDICARE, OTHER, SELFPAY | PROVIDERS: PCP Internal Medicine; Visit Provider Orthopaedic Surgery | DX: M25.811 Other specified joint disorders, right shoulder (principal) | CPT/HCPCS: 99212 ==

== ENCOUNTER 2023-08-23 15:20 | Outpatient (REF) | payer MEDICARE, OTHER, SELFPAY ==
--- NOTE | ~2023-08-23 | US_ITS ---
EXAMINATION: US VENOUS ULTRASOUND WITH DOPPLER LOWER EXTREMITY, LEFT CLINICAL INFORMATION: Edema History of superficial phlebitis left calf COMPARISON: Venous ultrasound left lower extremity 08/12/2023 TECHNIQUE: Ultrasound of the deep veins is performed from the hip to the calf with compression sonography and color and pulse Doppler assessment. Spectral analysis with color-flow imaging is performed. FINDINGS: There is normal venous compression and respiratory variation. The visualized common femoral vein, superficial femoral vein, profunda femoral vein, popliteal vein, and the trifurcation region shows no evidence of deep venous thrombosis. There is edema in the left calf. Varicose veins are seen in the calf. There is no evidence of thrombus within these veins. US/US venous duplex LE LT IMPRESSION: No DVT demonstrated in the left lower extremity. No superficial thrombophlebitis seen on today's scan.
== END 2023-08-23 15:21 | disposition home or self-care (01) ==
LOC: HO.US 15:20
PROVIDERS: PCP Internal Medicine; Visit Provider Internal Medicine
DX: R22.42 Localized swelling, mass and lump, left lower limb (principal)
CPT/HCPCS: 93971

== ENCOUNTER 2023-09-30 | Outpatient (REF) | payer MEDICARE, OTHER, SELFPAY | END 2023-09-30 00:01 | disposition home or self-care (01) | LOC: HO.LNP | PROVIDERS: Visit Provider Internal Medicine | DX: S80.812D Abrasion, left lower leg, subsequent encounter (principal) | CPT/HCPCS: 87070; 87147; 87205 ==

== ENCOUNTER → 2023-09-30 14:57 | Outpatient (BNV) | payer MEDICARE, OTHER, SELFPAY | PROVIDERS: PCP Internal Medicine; Visit Provider Internal Medicine Cardiovascular Disease | DX: M75.101 Unspecified rotator cuff tear or rupture of right shoulder, not specified as traumatic (principal); M75.41 Impingement syndrome of right shoulder; Z01.818 Encounter for other preprocedural examination | CPT/HCPCS: 93010 ==

== ENCOUNTER 2023-10-01 07:59 | Outpatient (AMB) | payer MEDICARE, OTHER, SELFPAY ==
[2023-10-01 08:04] VITALS: BMI 37.8
--- NOTE | 2023-10-01 08:04 | MHC.OFFVIS ---
Intake Vital Signs 10/01/23 08:04 Height 5 ft 1 in Weight 200 lb BMI 37.8 Intake Visit Reasons: Pre-Rt RTC Repair Intake Note: Karol is a 68 year old female who presents for a pre op appointment for her Right RTC repair on 10/11/2023. The patient describes her right shoulder pain as sharp in nature. The patient has weakness when lifting her right hand above shoulder height. She has done physical therapy exercises which aggravated her pain. She has also tried Tylenol and anti-inflammatory medicines which gave her minimal relief. He has had injections in the past which gave her no relief. The patient states that she has completed her course of antibiotics for her left lower extremity cellulitis. She states that the redness and swelling have continued to improve significantly. Allergies hydroxychloroquine [Plaquenil] Allergy (Severe, Verified 10/01/23 08:05) Rash codeine [Codeine] Allergy (Intermediate, Verified 10/01/23 08:05) NAUSEA & VOMITING methotrexate Allergy (Intermediate, Verified 10/01/23 08:05) Diarrhea oxycodone Allergy (Intermediate, Verified 10/01/23 08:05) dizziness, nausea, vomiting tramadol Allergy (Intermediate, Verified 10/01/23 08:05) Diarrhea Medication List - Last Reconciled 10/01/23 by Alejandro Miner MD acetaminophen ER 650 mg PO Q8H PRN allopurinol 100 mg PO DAILY atorvastatin 20 mg PO DAILY calcium citrate-vitamin D3 315 mg-6.25 mcg (250 unit) (Citracal + Vitamin D Maximum) 1 tab PO DAILY furosemide 20 mg PO QAM leflunomide 10 mg PO DAILY metoprolol succinate ER 100 mg PO DAILY pantoprazole 40 mg PO DAILY vitamin B complex (B Complex-Vitamin B12 tablet) 1 tab PO DAILY [Vitamin D3 2,000 multiple units PO DAILY] REPLACED BY [facility] Medical History IBS (irritable bowel syndrome) History of cellulitis Elevated cholesterol HTN (hypertension) PONV (postoperative nausea and vomiting) Colon cancer screening Eczema DVT (deep venous thrombosis) Diarrhea Cough Primary osteoarthritis, right hand Primary osteoarthritis, left hand Gout Polymyositis Surgical History History of back surgery (~2019) Hx of endoscopy H/O colonoscopy Social History Are you a primary ocular care technician to a significant other at home: No Do you presently have visiting nurse or other home services: No Alcohol intake: never Patient Tobacco Use Status: Never used Tobacco e-Cigarette/Vaping Use: Never Used Current occupational status: retired and disabled 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 Physical Exam Vital Signs: BMI result Body Mass Index 37.8 Const Other: Well-nourished well-developed very friendly female awake alert and oriented x3 in no acute distress Lungs - clear to auscultation bilaterally with symmetric expansion Cardiovascular exam - regular rate and rhythm Abdominal exam - soft nontender nondistended Extrem Other: Right shoulder examination shows decreased range of motion when compared to her left shoulder, 4/5 strength with supraspinatus testing, positive impingement signs, tenderness over her acromioclavicular joint, no instability Results Reviewed Results Reviewed: MRI of the patient's right shoulder show severe acromioclavicular joint narrowing, a type 2 acromion, a full-thickness supraspinatus tendon tear Assessment & Plan Assessment & Plan (1) Impingement of right shoulder: Code(s): M25.811 - Other specified joint disorders, right shoulder Plan Ms. Frias presents with progressively worsening right shoulder pain and weakness due to impingement syndrome, acromioclavicular joint arthritis and a full-thickness rotator cuff tear. I had a lengthy discussion with the patient regarding the treatment options. At this point she has failed continued non operative treatments. The risks and benefits of right shoulder surgery were discussed at length with the patient. The patient wishes to proceed with surgery. Surgery will most likely involve right shoulder diagnostic arthroscopy with distal clavicle excision, acromioplasty and rotator cuff repair. The patient was given a prescription for Tylenol with codeine at her preoperative appointment. She will follow-up as instructed. Feel free to call me at any time should questions regarding her orthopedic management arise. I spent 22 minutes in reviewing the patient's records and imaging studies, seeing the patient and documenting in the medical record. Medications: New acetaminophen-codeine 300-30 mg 1 tab PO Q4H PRN 30 tabs 0RF pain Coding Level of Care Code Est Pt Level 2 (85498) Diagnoses Impingement of right shoulder M25.811
== END 2023-10-01 08:24 | disposition home or self-care (01) ==
PROVIDERS: PCP Internal Medicine; Visit Provider Orthopaedic Surgery
DX: M25.811 Other specified joint disorders, right shoulder (principal)
CPT/HCPCS: 99024

== ENCOUNTER → 2023-10-01 07:59 | Outpatient (BNVA) | payer MEDICARE, OTHER, SELFPAY | PROVIDERS: PCP Internal Medicine; Visit Provider Orthopaedic Surgery | DX: M25.811 Other specified joint disorders, right shoulder (principal); M19.011 Primary osteoarthritis, right shoulder; M75.101 Unspecified rotator cuff tear or rupture of right shoulder, not specified as traumatic | CPT/HCPCS: 99212 ==

== ENCOUNTER 2023-10-17 14:52 | Outpatient (AMB) | payer MEDICARE, OTHER, SELFPAY ==
[2023-10-17 14:54] VITALS: BMI 37.8
--- NOTE | 2023-10-17 14:54 | A.OFFVIS_ITS ---
Intake Vital Signs 10/17/23 14:54 Height 5 ft 1 in Weight 200 lb BMI 37.8 Intake Visit Reasons: OV-Lt Leg Wound Check per DR Intake Note: Karol is a 68 year old female who presents with complaints of progressively worsening right shoulder pain and weakness. The patient describes her right shoulder pain as sharp in nature. The patient has weakness when lifting her right hand above shoulder height. She has done physical therapy exercises which aggravated her pain. She has also tried Tylenol and anti-inflammatory medicines which gave her minimal relief. He has had injections in the past which gave her no relief. The patient's symptoms have gotten worse over the last year in spite of continued non operative treatments. She has been treated recently for left leg cellulitis. She states that she has no longer on antibiotics. Allergies hydroxychloroquine [Plaquenil] Allergy (Severe, Verified 10/17/23 14:58) Rash codeine [Codeine] Allergy (Intermediate, Verified 10/17/23 14:58) NAUSEA & VOMITING methotrexate Allergy (Intermediate, Verified 10/17/23 14:58) Diarrhea oxycodone Allergy (Intermediate, Verified 10/17/23 14:58) dizziness, nausea, vomiting tramadol Allergy (Intermediate, Verified 10/17/23 14:58) Diarrhea Medication List - Last Reconciled 10/17/23 by Alejandro Miner MD acetaminophen ER 650 mg PO Q8H PRN acetaminophen-codeine 300-30 mg 1 tab PO Q4H PRN allopurinol 100 mg PO DAILY atorvastatin 20 mg PO DAILY calcium citrate-vitamin D3 315 mg-6.25 mcg (250 unit) (Citracal + Vitamin D Maximum) 1 tab PO DAILY furosemide 20 mg PO QAM leflunomide 10 mg PO DAILY metoprolol succinate ER 100 mg PO DAILY pantoprazole 40 mg PO DAILY vitamin B complex (B Complex-Vitamin B12 tablet) 1 tab PO DAILY [Vitamin D3 2,000 multiple units PO DAILY] [facility] Medical History IBS (irritable bowel syndrome) History of cellulitis Elevated cholesterol HTN (hypertension) PONV (postoperative nausea and vomiting) Colon cancer screening Eczema DVT (deep venous thrombosis) Diarrhea Cough Primary osteoarthritis, right hand Primary osteoarthritis, left hand Gout Polymyositis Surgical History History of back surgery (~2019) Hx of endoscopy H/O colonoscopy Social History Are you a primary healthcare liaison to a significant other at home: No Do you presently have visiting nurse or other home services: No Alcohol intake: never Patient Tobacco Use Status: Never used Tobacco e-Cigarette/Vaping Use: Never Used Current occupational status: retired and disabled 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 Physical Exam Vital Signs: BMI result Body Mass Index 37.8 Const Other: Well-nourished well-developed very friendly female awake alert and oriented x3 in no acute distress Lungs - clear to auscultation bilaterally with symmetric expansion Cardiovascular exam - regular rate and rhythm Abdominal exam - soft nontender nondistended Extrem Other: Right shoulder examination shows decreased range of motion when compared to her left shoulder, 4/5 strength with status testing positive impingement signs, tenderness over her acromioclavicular joint, no instability Left lower extremity examination shows that the redness along the lower aspect of her leg is much improved when compared to prior examination, her leg compartments are soft Results Reviewed Results Reviewed: MRI of the patient's right shoulder show severe acromioclavicular joint narrowing, a type 3 acromion, a full-thickness supraspinatus tendon tear Assessment & Plan Assessment & Plan (1) Impingement of right shoulder: Code(s): M25.811 - Other specified joint disorders, right shoulder Plan Ms. Frias presents with progressively worsening right shoulder pain and weakness due to impingement syndrome, acromioclavicular joint arthritis and a full-thickness rotator cuff tear. I had a lengthy discussion with the patient regarding the treatment options. At this point the patient has failed continued non operative treatments. The risks and benefits of right shoulder surgery were discussed at length with the patient. The patient wishes to proceed with surgery. Surgery will involve right shoulder diagnostic arthroscopy with distal clavicle excision, acromioplasty and rotator cuff repair. The patient will be scheduled for a next available date. She will follow-up as instructed. Feel free to call me at any time should questions regarding her orthopedic management arise. I spent 22 minutes in reviewing the patient's records and imaging studies, seeing the patient and documenting in the medical record. Coding Level of Care Code Est Pt Level 2 (35698) Diagnoses Impingement of right shoulder M25.811
== END 2023-10-17 15:24 | disposition home or self-care (01) ==
PROVIDERS: PCP Internal Medicine; Visit Provider Orthopaedic Surgery
DX: M75.41 Impingement syndrome of right shoulder (principal); M25.811 Other specified joint disorders, right shoulder
CPT/HCPCS: 99213

== ENCOUNTER → 2023-10-17 14:52 | Outpatient (BNVA) | payer MEDICARE, OTHER, SELFPAY | PROVIDERS: PCP Internal Medicine; Visit Provider Orthopaedic Surgery | DX: M25.811 Other specified joint disorders, right shoulder (principal) | CPT/HCPCS: 99212 ==

== ENCOUNTER 2023-11-22 11:56 | Day surgery (SDC) | payer MEDICARE, OTHER, SELFPAY ==
--- NOTE | 2023-09-30 | ECG_ITS ---
Test Reason : PREOPOP Blood Pressure : / mmHG Vent. Rate : 069 BPM Atrial Rate : 069 BPM P-R Int : 132 ms QRS Dur : 082 ms QT Int : 412 ms P-R-T Axes : 048 009 035 degrees QTc Int : 441 ms Normal sinus rhythm Normal ECG No previous ECGs available Referred By: Alana Feliciano Electronically Signed By:Al Galvan
[2023-09-30 14:01] VITALS: BP 138/68; PULSE 65; RESP 16; O2SAT 97; BMI 36.1
--- NOTE | 2023-09-30 14:37 | P.CONAN_ITS ---
HPI - Anesthesia Eval Consult details Narrative: Rescheduled d/t Strep B + leg wound culture. Tx by PCP. 68yo F for Right Shoulder Arthroscopy, distal clavicle excision, arcomioplasty, rotator cuff repair No recent illness No CP/SOB with walking/house work PONV - never tried scop patch Polymyositis - Avara for year, some mild leg weakness. Discussed muscle relaxants and nerve block DVT years ago - no anticoags PMFSH Active Problems Active Problems: All Active Problems (Updated 09/30/23 @ 14:36 by Jyoti Torres RN) Impingement of right shoulder (Acute) Primary osteoarthritis, right hand (Acute) Primary osteoarthritis, left hand (Acute) Gout (Acute) Polymyositis (Acute) Past Medical History Medical History IBS (irritable bowel syndrome) History of cellulitis Elevated cholesterol HTN (hypertension) PONV (postoperative nausea and vomiting) Colon cancer screening Eczema DVT (deep venous thrombosis) Diarrhea Cough Primary osteoarthritis, right hand Primary osteoarthritis, left hand Gout Polymyositis Family History Family history of problems with anesthesia: No Surgical History Surgical History History of back surgery (~2019) Hx of endoscopy H/O colonoscopy History of Problems with Anesthesia: Yes (PONV) Social History Social History Are you a primary farm or ranch animal caretaker to a significant other at home: No Do you presently have visiting nurse or other home services: No Alcohol intake: never Patient Tobacco Use Status: Never used Tobacco e-Cigarette/Vaping Use: Never Used Use of substances other than those prescribed or required for medical reasons: No Have you been hit, kicked, punched, or otherwise hurt by someone within the past year? 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 Meds Allergies Allergy/AdvReac Type Severity Reaction Status Date / Time hydroxychloroquine Allergy Severe Rash Verified 10/01/23 08:05 [Plaquenil] codeine [Codeine] Allergy Intermediate NAUSEA & Verified 10/01/23 08:05 VOMITING methotrexate Allergy Intermediate Diarrhea Verified 10/01/23 08:05 oxycodone Allergy Intermediate dizziness, Verified 10/01/23 08:05 nausea, vomiting tramadol Allergy Intermediate Diarrhea Verified 10/01/23 08:05 Home Medications Medication Instructions Recorded Confirmed Last Taken Type acetaminophen 650 mg 650 mg PO Q8H PRN Pain 07/21/20 10/01/23 Unknown History tablet,extended release atorvastatin 20 mg tablet 20 mg PO DAILY 07/21/20 10/01/23 Unknown History calcium citrate 315 mg 1 tab PO DAILY 07/21/20 10/01/23 Unknown History calcium-vitamin D3 6.25 mcg (250 unit) tablet (Citracal + Vitamin D Maximum) furosemide 20 mg tablet 20 mg PO QAM 07/21/20 10/01/23 Unknown History metoprolol succinate 100 mg 100 mg PO DAILY 07/21/20 10/01/23 Unknown History tablet,extended release 24 hr vitamin B complex (B 1 tab PO DAILY 07/21/20 10/01/23 Unknown History Complex-Vitamin B12 tablet) allopurinol 100 mg tablet 100 mg PO DAILY 01/18/22 10/01/23 Unknown History pantoprazole 40 mg tablet,delayed 40 mg PO DAILY 11/22/22 10/01/23 Unknown History release Vitamin D3 2,000 units PO DAILY 09/30/23 10/01/23 Unknown History Exam Height,Weight and Vital Signs: Height 5 ft 1.5 in Weight 87.997 kg Last Vital Signs Pulse 65 09/30/23 14:01 Resp 16 09/30/23 14:01 BP 138/68 09/30/23 14:01 Pulse Ox 97 09/30/23 14:01 O2 Del Method Room Air 09/30/23 14:01 Pertinent Lab Results Pertinent Lab Results: Laboratory Tests 08/12/23 11:18 WBC 6.1 Hgb 11.5 L Hct 35.5 L Plt Count 274 D Sodium 145 Potassium 3.7 Chloride 110 H Carbon Dioxide 23 BUN 12 Creatinine 0.81 Airway Mallampati Class: II TM Dist: >3cm Neck ROM: Full Loose/Missing/Broken Teeth: Yes (molars pulled) Heart: RRR Lungs: CTAB Assessment and Plan Assessment Anesthesia Assessment: Anesthesia Plan Discussed and PAT Visit Final Anesthetic Review Family History of Problems with Anesthesia: No History of Problems with Anesthesia: Yes (PONV)
[2023-09-30 16:02] LABS: Erythrocyte Sedimentation Rate 75 MM/HR (0-20)
[2023-09-30 16:14] LABS: C Reactive Protein 11.29 mg/dL (< or = 0.50)
[2023-11-22] VITALS (10 sets, daily range): BP systolic 112–169; BP diastolic 58–101; PULSE 69–82; RESP 16–18; TEMP 36.1–36.6; O2SAT 92–99
--- NOTE | ~2023-11-22 | XR_ITS ---
EXAMINATION: XR SHOULDER, RIGHT CLINICAL INFORMATION: Loss of the suture COMPARISON: Right shoulder x-rays May 30, 2023 TECHNIQUE: Two views of the right shoulder. FINDINGS: Patient is status post intervention of the right humeral head with placement of surgical anchors. There is mild adjacent subcutaneous emphysema. A metallic needle is not identified. No gross fracture identified. Visualized right-sided ribs and lung parenchyma are unremarkable. XR/XR shoulder RT min 2V IMPRESSION: Postsurgical changes of the right shoulder. No metallic needle is identified.
[2023-11-22] MEDS: Lactated Ringers 1,000 ML 50 ML IVCONT (13:17)
--- NOTE | 2023-11-22 13:44 | HO.ANESPROP2 ---
HPI - Anesthesia Eval Consult details Narrative: 68 yo F presenting for right shoulder arthroscopy, DCE, and rotator cuff repair. Hx of PONV even with sedation for colonoscopy. PMFSH Active Problems Active Problems: All Active Problems (Updated 09/30/23 @ 14:36 by Jyoti Torres RN) Impingement of right shoulder (Acute) Primary osteoarthritis, right hand (Acute) Primary osteoarthritis, left hand (Acute) Gout (Acute) Polymyositis (Acute) Past Medical History Medical History IBS (irritable bowel syndrome) History of cellulitis Elevated cholesterol HTN (hypertension) PONV (postoperative nausea and vomiting) Colon cancer screening Eczema DVT (deep venous thrombosis) Diarrhea Cough Primary osteoarthritis, right hand Primary osteoarthritis, left hand Gout Polymyositis Family History Family history of problems with anesthesia: No Surgical History Surgical History History of back surgery (~2019) Hx of endoscopy H/O colonoscopy History of Problems with Anesthesia: Yes (Nausea and vomiting) Social History Social History Are you a primary critical care nurse specialist to a significant other at home: No Do you presently have visiting nurse or other home services: No Alcohol intake: never Patient Tobacco Use Status: Never used Tobacco e-Cigarette/Vaping Use: Never Used Use of substances other than those prescribed or required for medical reasons: No Have you been hit, kicked, punched, or otherwise hurt by someone within the past year? 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 Meds Allergies Allergy/AdvReac Type Severity Reaction Status Date / Time hydroxychloroquine Allergy Severe Rash Verified 10/17/23 14:58 [Plaquenil] codeine [Codeine] Allergy Intermediate NAUSEA & Verified 10/17/23 14:58 VOMITING methotrexate Allergy Intermediate Diarrhea Verified 10/17/23 14:58 oxycodone Allergy Intermediate dizziness, Verified 10/17/23 14:58 nausea, vomiting tramadol Allergy Intermediate Diarrhea Verified 10/17/23 14:58 Active Medications: Current Medications Lactated Ringer's (Lr) 1,000 mls @ 50 mls/hr IVCONT .Q20H GOOD Last Admin: 11/22/23 13:17 Dose: 50 mls/hr Home Medications Medication Instructions Recorded Confirmed Last Taken Type acetaminophen 650 mg 650 mg PO Q8H PRN Pain 07/21/20 10/17/23 Unknown History tablet,extended release atorvastatin 20 mg tablet 20 mg PO DAILY 07/21/20 10/17/23 Unknown History calcium citrate 315 mg 1 tab PO DAILY 07/21/20 10/17/23 Unknown History calcium-vitamin D3 6.25 mcg (250 unit) tablet (Citracal + Vitamin D Maximum) furosemide 20 mg tablet 20 mg PO QAM 07/21/20 10/17/23 Unknown History metoprolol succinate 100 mg 100 mg PO DAILY 07/21/20 10/17/23 Unknown History tablet,extended release 24 hr vitamin B complex (B 1 tab PO DAILY 07/21/20 10/17/23 Unknown History Complex-Vitamin B12 tablet) allopurinol 100 mg tablet 100 mg PO DAILY 01/18/22 10/17/23 Unknown History pantoprazole 40 mg tablet,delayed 40 mg PO DAILY 11/22/22 10/17/23 Unknown History release Vitamin D3 2,000 units PO DAILY 09/30/23 10/17/23 Unknown History Exam Exam Date and Time: November 22, 2023 1315 Height,Weight and Vital Signs: Height 5 ft 1.5 in Weight 87.997 kg Last Vital Signs Temp 97.9 F 11/22/23 13:12 Pulse 82 11/22/23 13:12 Resp 18 11/22/23 13:12 BP 112/77 11/22/23 13:12 Pulse Ox 97 09/30/23 14:01 O2 Del Method Room Air 09/30/23 14:01 Pertinent Lab Results Pertinent Lab Results: Laboratory Tests 09/30/23 15:16 ESR 75 H Total Creatine Kinase 222 H C-Reactive Protein 11.29 H Airway Mallampati Class: II TM Dist: >3cm Neck ROM: Full Loose/Missing/Broken Teeth: Yes (broken molar left upper jaw) Heart: S1S2 Lungs: CTAB Assessment and Plan Assessment Anesthesia Assessment: Anesthesia Plan Discussed and Chart Reviewed Final Anesthetic Review Family History of Problems with Anesthesia: No History of Problems with Anesthesia: Yes (Nausea and vomiting) NPO: Yes ASA Class: II Final Preanesthetic Review: No Changes in Pt Med Stat, Meds/Allgs Chart Reviewed, Consent Obtained/Reviewed and Anes Risks/Benef Reviewed Patient Risk: Low Procedure Risk: Low Assessment/Block/Sedation in SS: Assess/Block/Sedation-SS (right brachial plexus block) Anesthetic Plan Anesthetic Plan: GA and Regional Block (right brachial plexus block) Disposition: Standard PACU
--- NOTE | 2023-11-22 16:03 | P.BOP_ITS ---
Brief Operative Note Date of Service: 11/22/23 Pre-op diagnosis: Right shoulder impingement syndrome, right shoulder acromioclavicular joint arthritis, right shoulder rotator cuff tear Post-op diagnosis: other (Same as preoperative diagnoses as well as right shoulder long head biceps tendon tear) Procedure: Right shoulder diagnostic arthroscopy with right shoulder arthroscopic distal clavicle excision, right shoulder arthroscopic acromioplasty, right shoulder arthroscopic biceps tenotomy, right shoulder mini-open rotator cuff repair Implants: Two suture anchors ([place] and NephEV Connect Twinfix suture anchors with #2 Ultrabraid suture) Surgeon: Alejandro Miner MD Anesthesia: GETA and regional Was an Video Journalist used for this Procedure?: No Estimated blood loss (mL): 15 Pathology: none sent Condition: stable Disposition: PACU
--- NOTE | 2023-11-22 16:05 | W.PM.OPN ---
Operative Note Operative Note Date of Service: 11/22/23 Narrative: After the patient was identified as Karol Frias and their right shoulder was initialed by myself the patient was brought to the holding area where a right shoulder interscalene regional block was performed by the anesthesiologist in routine fashion. The patient was then brought to the operating room where general anesthesia was induced by the anesthesiologist in routine fashion. The patient was given 2 g of IV Ancef preoperatively for infection prophylaxis. Examination under anesthesia of the patient's right shoulder showed full passive range of motion of the patient's right shoulder when compared to the left. The patient was gently positioned in the beach chair position with all bony prominences well padded. The patient's right shoulder region and upper extremity were prepped and draped in sterile fashion. A formal time-out was completed. A #11 scalpel blade was used to make a posterior portal 2 cm inferior and 1 cm medial to the posterolateral corner of the acromion. Blunt trocar technique was used to enter the glenohumeral joint in routine fashion. An anterior portal was made just lateral to the coracoid process after proper positioning was confirmed using a spinal needle. Diagnostic arthroscopy showed minimal degenerative changes of the glenoid and humeral head articular surfaces. There was a full-thickness tear of the supraspinatus tendon. There was a tear of the long head of the biceps measuring approximately 75% of the tendon width. A biceps tenotomy was then performed using the arthroscopic biter and arthroscopic shaver. There was no inflammation of the anterior joint capsule. The arthroscope was then placed from the posterior portal into the subacromial space. A lateral portal was made 2 fingerbreadths lateral to the anterior lateral corner of the acromion. The ArthroCare Wand was used to ablate soft tissues along the undersurface of the acromion as well as to excise the coracoacromial ligament. There was a sharp spur along the undersurface of the acromion which was removed using the hooded bur. The arthroscope was then placed into the lateral portal and the acromioplasty was completed with the bur in the posterior portal using the posterior aspect of the acromion as a cutting block. The ArthroCare Wand was then brought in through the anterior portal and was used to ablate soft tissues along the acromioclavicular joint and distal clavicle. The posterior and superior ligamentous structures were left intact. A distal clavicle excision of 8 mm was performed using the hooded bur. Any remaining bursal tissue was removed using the arthroscopic shaver. The subacromial space was irrigated and then drained. All arthroscopic instruments were removed. Sterile gloves were changed and the shoulder was once again prepped with Betadine. A #15 scalpel blade was used to extend the lateral portal to the lateral edge of the acromion. The subacromial tissues were dissected using electrocautery down to the superficial deltoid fascia. The trocar split in the anterior raphe of the deltoid was then extended to the lateral edge of the acromion using electrocautery and curved Persaud scissors. Any remaining bursal tissue was removed using curved Persaud scissors. Subacromial and subdeltoid adhesions were bluntly dissected. The undersurface of the acromion was palpated and it was smooth. A #2 Ethibond tag suture was placed into the supraspinatus tendon. The tendon was easily mobilized to its insertion point on the glenoid. The wound was irrigated with copious amounts of normal saline solution. Two suture anchors were placed into the greater tuberosity in routine fashion. The rotator cuff repair was then performed using horizontal mattress sutures under minimal tension with the patient's elbow at their side. During the repair the eyelid of the free needle was seen to be broken. The premises technician assisting in the procedure thought that he saw the piece fall down the patient's arm towards the pouch in the drape. The pouch was inspected but the eyelet was not found. Following the repair the shoulder was taken through a full range of motion. The repair was stable. The wound was irrigated with copious amounts of normal saline solution. The superficial and deep deltoid fascia were closed with #1 Vicryl [id number] interrupted suture. The wound was once again irrigated. The subcutaneous tissues were closed with 2-0 Vicryl interrupted suture. At this point the arthroscope was once again placed through the posterior portal into both the subacromial space and the glenohumeral joint. The eyelid of the free needle was not identified in either space. The decision was made to get an x-ray following the procedure to confirm that the eyelet was not within the shoulder joint or subacromial space. The skin was closed with 3-0 Prolene subcuticular suture and Steri-Strips. The anterior and posterior portals were closed with 3-0 nylon interrupted suture. Dry sterile dressing was placed over all incisions. The patient's right upper extremity was placed into a sling. The patient was then transferred onto a stretcher. At this point the eyelet of the needle was found within the pouch of the drape intact. In order to be thorough, two x-rays were taken of the shoulder. No foreign body except the suture anchors were seen on the x-rays. The patient was awoken and extubated in the operating room. The patient was transferred to the recovery room in stable condition.
[2023-11-22] MEDS: cefTRIAXone sodium 1 GM in 0.9 % Sodium Chloride 50 ML IV (16:29)
== END 2023-11-22 18:00 | disposition home or self-care (01) ==
PROVIDERS: Nurse Practitioner; PCP Internal Medicine; Visit Provider Orthopaedic Surgery
PROC: (CPT 29805; principal; 2023-11-22 14:00)
DX: M75.101 Unspecified rotator cuff tear or rupture of right shoulder, not specified as traumatic (principal); M75.41 Impingement syndrome of right shoulder; M19.011 Primary osteoarthritis, right shoulder; M33.20 Polymyositis, organ involvement unspecified; M10.9 Gout, unspecified; L30.9 Dermatitis, unspecified; I10 Essential (primary) hypertension; E78.00 Pure hypercholesterolemia, unspecified; Z86.718 Personal history of other venous thrombosis and embolism; Z79.899 Other long term (current) drug therapy; Z88.8 Allergy status to other drugs, medicaments and biological substances; Z88.5 Allergy status to narcotic agent; Z98.890 Other specified postprocedural states; Z03.823 Encounter for observation for suspected inserted (injected) foreign body ruled out
CPT/HCPCS: 23412; 29826; 29824; 29822; 36415; 73030; 82550; 85652; 86140; 93005; C1713; J0131; J0171; J0690; J0696; J1100; J1885; J2250; J2405; J2704; J2795; J3010

== ENCOUNTER → 2023-11-22 11:56 | Outpatient (BNV) | payer MEDICARE, OTHER, SELFPAY | PROVIDERS: PCP Internal Medicine; Visit Provider Orthopaedic Surgery | DX: S46.011A Strain of muscle(s) and tendon(s) of the rotator cuff of right shoulder, initial encounter (principal); S46.111A Strain of muscle, fascia and tendon of long head of biceps, right arm, initial encounter; M75.41 Impingement syndrome of right shoulder; M19.011 Primary osteoarthritis, right shoulder | CPT/HCPCS: 23412; 29822; 29824; 29826 ==

== ENCOUNTER 2023-12-05 09:52 | Outpatient (AMB) | payer MEDICARE, OTHER, SELFPAY ==
--- NOTE | 2023-12-05 06:31 | A.OFFVIS_ITS ---
Intake Vital Signs 12/05/23 09:58 Height 5 ft 1 in Weight 176 lb BMI 33.3 Intake Visit Reasons: PO-Rt RTC Repair 11/22/23 DR Martin Note: Karol 68 yr old female presents today for her PO visit for her tight RTC Repair 11/22/23 , Dressing and sutures removed in office. States she is having mild pain and discomfort. Information Interpreted: non-clinical & clinical Accompanied by: Self / Same As Patient Allergies hydroxychloroquine [Plaquenil] Allergy (Severe, Verified 12/05/23 10:00) Rash codeine [Codeine] Allergy (Intermediate, Verified 12/05/23 10:00) NAUSEA & VOMITING methotrexate Allergy (Intermediate, Verified 12/05/23 10:00) Diarrhea oxycodone Allergy (Intermediate, Verified 12/05/23 10:00) dizziness, nausea, vomiting tramadol Allergy (Intermediate, Verified 12/05/23 10:00) Diarrhea hydromorphone [From Dilaudid] Adverse Reaction (Verified 12/05/23 10:04) Vomiting HPI PO-Rt RTC Repair 11/22/23 DR BENTON Details 68-year-old female who returns to the [facility] today for post-op right shoulder RTC repair, 11/22/[address] Miner. She states she has mild intermittent pain and discomfort in her shoulder which comes with getting out of the shower. She is doing well otherwise and has no other concerns today. 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 [facility] Medical History IBS (irritable bowel syndrome) History of cellulitis Elevated cholesterol HTN (hypertension) PONV (postoperative nausea and vomiting) Colon cancer screening Eczema DVT (deep venous thrombosis) Diarrhea Cough Primary osteoarthritis, right hand Primary osteoarthritis, left hand Gout Polymyositis Surgical History History of back surgery (~2019) Hx of endoscopy H/O colonoscopy Social History Are you a primary care specialist to a significant other at home: No Do you presently have visiting nurse or other home services: No Alcohol intake: never Patient Tobacco Use Status: Never used Tobacco e-Cigarette/Vaping Use: Never Used Current occupational status: retired and disabled 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 Review of Systems Const All systems reviewed & are unremarkable except as noted in HPI and below Physical Exam Vital Signs: BMI result Body Mass Index 33.3 Extrem Other: Right shoulder: Incision clean, dry and intact. No erythema no drainage. Sensation is intact. Results Reviewed Results Reviewed: Date of Service: 11/22/23 Pre-op diagnosis: Right shoulder impingement syndrome, right shoulder acromioclavicular joint arthritis, right shoulder rotator cuff tear Post-op diagnosis: other (Same as preoperative diagnoses as well as right shoulder long head biceps tendon tear) Procedure: Right shoulder diagnostic arthroscopy with right shoulder arthroscopic distal clavicle excision, right shoulder arthroscopic acromioplasty, right shoulder arthroscopic biceps tenotomy, right shoulder mini-open rotator cuff repair Implants: Two suture anchors (Badillo [employer]hew Twinfix suture anchors with #2 Ultrabraid suture) Surgeon: Alejandro Miner MD Assessment & Plan Assessment & Plan (1) Impingement of right shoulder: Code(s): M25.811 - Other specified joint disorders, right shoulder (2) S/P rotator cuff repair: Code(s): Z98.890 - Other specified postprocedural states Plan Sutures removed today, steri strips applied. She was fit a new shoulder sling as the one from the OR was larger and did not fit her properly. I also put in an order of physical therapy to work on ROM and periscapular stabilization, no RTC strengthening at this time. I also recommend no driving for the next 4 weeks, at which point he will see me back with Dr. Miner, sooner if needed. Orders: Orders PT Evaluation and Treatment Today M25.811 - Other specified joint disorders, right shoulder, Z98.890 - Other specified postprocedural states Medications: New ibuprofen 800 mg PO Q8H 30 days PRN 90 tabs 3RF pain S52.209D - Unspecified fracture of shaft of unspecified ulna, subsequent encounter for closed fracture with routine healing Patient Instructions: Scribed for Naomi Whittington PA-C, by Shadi Appiah medical office asst, on 12/05/2023 at 10:00 AM EST. INaomi PA-C, have personally reviewed and agree with the information entered by the scribe. Coding Level of Care Code Global (76522) Diagnoses Impingement of right shoulder M25.811 S/P rotator cuff repair Z98.890
[2023-12-05 09:58] VITALS: BMI 33.3
== END 2023-12-05 10:16 | disposition home or self-care (01) ==
PROVIDERS: PCP Internal Medicine; Visit Provider Physician Assistant
DX: M25.811 Other specified joint disorders, right shoulder (principal); Z98.890 Other specified postprocedural states
CPT/HCPCS: 99024

== ENCOUNTER → 2023-12-05 | Outpatient (BNVA) | payer MEDICARE, OTHER, SELFPAY | PROVIDERS: PCP Internal Medicine; Visit Provider Physician Assistant | DX: M25.811 Other specified joint disorders, right shoulder (principal); Z98.890 Other specified postprocedural states; Z48.02 Encounter for removal of sutures | CPT/HCPCS: 99212 ==

== ENCOUNTER 2024-01-02 09:25 | Outpatient (AMB) | payer MEDICARE, OTHER, SELFPAY ==
[2024-01-02 09:27] VITALS: BMI 33.3
--- NOTE | 2024-01-02 09:27 | MHC.OFFVIS ---
Vital Signs 01/02/24 09:27 Height 5 ft 1 in Weight 176 lb BMI 33.3 Intake Visit Reasons: PO-Rt RTC Repair 11/22/23 Intake Note: Karol is a 68 year old female who presents for her post operative appointment s/p her Right RTC repair on 11/22/23 . Patient reports she is still having some discomfort during her exercises but her ROM has improved. She is still in physical therapy and it is going well. She takes Tylenol as needed for her discomfort. Allergies hydroxychloroquine [Plaquenil] Allergy (Severe, Verified 01/02/24 09:31) Rash codeine [Codeine] Allergy (Intermediate, Verified 01/02/24 09:31) NAUSEA & VOMITING methotrexate Allergy (Intermediate, Verified 01/02/24 09:31) Diarrhea oxycodone Allergy (Intermediate, Verified 01/02/24 09:31) dizziness, nausea, vomiting tramadol Allergy (Intermediate, Verified 01/02/24 09:31) Diarrhea hydromorphone [From Dilaudid] Adverse Reaction (Verified 01/02/24 09:31) Vomiting Medication List - Last Reconciled 01/02/24 by Alejandro Miner MD acetaminophen ER 650 mg PO Q8H PRN allopurinol 100 mg PO DAILY atorvastatin 20 mg PO DAILY calcium citrate-vitamin D3 315 mg-6.25 mcg (250 unit) (Citracal + Vitamin D Maximum) 1 tab PO DAILY furosemide 20 mg PO QAM ibuprofen 800 mg PO Q8H PRN 30 days leflunomide 10 mg PO DAILY metoprolol succinate ER 100 mg PO DAILY pantoprazole 40 mg PO DAILY vitamin B complex (B Complex-Vitamin B12 tablet) 1 tab PO DAILY [Vitamin D3 2,000 multiple units PO DAILY] [facility] Medical History IBS (irritable bowel syndrome) History of cellulitis Elevated cholesterol HTN (hypertension) PONV (postoperative nausea and vomiting) Colon cancer screening Eczema DVT (deep venous thrombosis) Diarrhea Cough Primary osteoarthritis, right hand Primary osteoarthritis, left hand Gout Polymyositis Surgical History History of back surgery (~2019) Hx of endoscopy H/O colonoscopy Social History (Reviewed 01/02/24 @ 09:32 by COURTNEY Nicolas Are you a primary primary care physician to a significant other at home: No Do you presently have visiting nurse or other home services: No Alcohol intake: never Patient Tobacco Use Status: Never used Tobacco e-Cigarette/Vaping Use: Never Used Current occupational status: retired and disabled 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 Frias continues to do very well after undergoing right shoulder rotator cuff repair surgery on 11/22/2023. She will continue going to formal physical therapy for now. The patient will hold off on active range of motion exercises until she is 8 weeks out from surgery. The do's and don'ts of lifting were discussed at length with the patient. She will contact me prior to her follow-up appointment in 6 weeks should any questions or concerns arise. Feel free to call me at any time should questions regarding her orthopedic management arise. Orders: Orders PT Evaluation and Treatment Today M25.511 - Pain in right shoulder Coding Level of Care Code Global (62643) Diagnoses Right shoulder pain M25.511
== END 2024-01-02 09:50 | disposition home or self-care (01) ==
PROVIDERS: PCP Internal Medicine; Visit Provider Orthopaedic Surgery
DX: M25.511 Pain in right shoulder (principal)
CPT/HCPCS: 99024

== ENCOUNTER → 2024-01-02 09:25 | Outpatient (BNVA) | payer MEDICARE, OTHER, SELFPAY | PROVIDERS: PCP Internal Medicine; Visit Provider Orthopaedic Surgery | DX: M25.511 Pain in right shoulder (principal); Z96.611 Presence of right artificial shoulder joint; Z47.89 Encounter for other orthopedic aftercare | CPT/HCPCS: 99212 ==

== ENCOUNTER 2024-01-31 16:42 | Outpatient (REF) | payer MEDICARE, OTHER, SELFPAY ==
[2024-01-31 16:52] LABS: MANUAL DIFF FLAG NO
[2024-01-31 17:36] LABS: Basophils Absolute Auto 0.1 X10*3/uL (0.0-0.2); Basophils Percent Auto 0.8 % (0-2); Eosinophils Absolute Auto 0.3 X10*3/uL (0.0-0.4); Eosinophils Percent Auto 2.7 % (0-4); Hematocrit 34.5 % (37.0-47.0); Hemoglobin 11.5 g/dl (12.0-16.0); Imm Gran Abs Auto 0.03 X10*3/uL (0.00-0.03); Imm Gran Pct Auto 0.3 % (0.0-0.4); Lymphocytes Absolute Auto 1.7 X10*3/uL (1.2-4.9); Lymphocytes Percent Auto 16.4 % (20-40); Mean Corpuscular HGB Conc 33.3 g/dl (31.0-35.0); Mean Corpuscular Hemoglobin 31.3 pg (27.0-33.0); Monocytes Absolute Auto 1.3 X10*3/uL (0.1-1.2); Neutrophils Absolute Auto 7.2 x10*3/uL (2.0-8.3); Neutrophils Percent Auto 67.8 % (45-73); Platelet Count 278 X10*3/uL (160-400); Red Blood Count 3.67 X10*6/uL (4.20-5.50); Red Cell Distribution Width 13.8 % (11.0-16.0); White Blood Count 10.6 X10*3/uL (4.8-10.8)
[2024-01-31 18:02] LABS: Alanine Aminotransferase 11 U/L (0-31); Alkaline Phosphatase 93 U/L (39-117); Anion Gap 19 (12-20); Aspartate Amino Transferase 20 U/L (5-31); Bilirubin Total 0.5 mg/dL (0.0-1.0); Blood Urea Nitrogen 66 mg/dL (9-16); C Reactive Protein 11.17 mg/dL (< or = 0.50); Calcium 9.9 mg/dL (8.4-10.2); Carbon Dioxide 22 mmol/L (22-29); Chloride 103 mmol/L (96-108); Estimated Glomerular Filt Rate 18; Glucose Random 145 mg/dL (60-115); Lipase 12 U/L (8-78); Potassium 3.1 mmol/L (3.3-5.1); Sodium 141 mmol/L (135-145); Total Protein 7.5 g/dL (6.5-8.0)
== END 2024-01-31 16:43 | disposition home or self-care (01) ==
LOC: HO.LAB 16:42
PROVIDERS: PCP Internal Medicine; Visit Provider Internal Medicine
DX: R10.9 Unspecified abdominal pain (principal); K57.90 Diverticulosis of intestine, part unspecified, without perforation or abscess without bleeding
CPT/HCPCS: 36415; 80053; 83690; 85025; 86140

== ENCOUNTER 2024-02-06 09:12 | Outpatient (AMB) | payer MEDICARE, OTHER, SELFPAY ==
[2024-02-06 09:17] VITALS: BMI 33.3
--- NOTE | 2024-02-06 09:17 | MHC.OFFVIS ---
Vital Signs 02/06/24 09:17 Height 5 ft 1 in Weight 176 lb BMI 33.3 Intake Visit Reasons: PO-Rt RTC Repair 11/22/23 Intake Note: Karol is a 68 year old female who presents with complaints of mild intermittent discomfort in her right shoulder after undergoing right shoulder rotator cuff repair surgery on 11/22/2023. The patient continues going to formal physical therapy. She has no longer taking narcotics for discomfort. She reports mild discomfort when lifting her right hand above shoulder height. She is considering returning to part-time work at [employer]. Information Interpreted: non-clinical only Allergies hydroxychloroquine [Plaquenil] Allergy (Severe, Verified 02/06/24 09:22) Rash codeine [Codeine] Allergy (Intermediate, Verified 02/06/24 09:22) NAUSEA & VOMITING methotrexate Allergy (Intermediate, Verified 02/06/24 09:22) Diarrhea oxycodone Allergy (Intermediate, Verified 02/06/24 09:22) dizziness, nausea, vomiting tramadol Allergy (Intermediate, Verified 02/06/24 09:22) Diarrhea hydromorphone [From Dilaudid] Adverse Reaction (Verified 02/06/24 09:22) Vomiting Medication List - Last Reconciled 02/07/24 by Alejandro Miner MD acetaminophen ER 650 mg PO Q8H PRN allopurinol 100 mg PO DAILY atorvastatin 20 mg PO DAILY calcium citrate-vitamin D3 315 mg-6.25 mcg (250 unit) (Citracal + Vitamin D Maximum) 1 tab PO DAILY furosemide 20 mg PO QAM ibuprofen 800 mg PO Q8H PRN 30 days leflunomide 10 mg PO DAILY metoprolol succinate ER 100 mg PO DAILY pantoprazole 40 mg PO DAILY vitamin B complex (B Complex-Vitamin B12 tablet) 1 tab PO DAILY [Vitamin D3 2,000 multiple units PO DAILY] [facility] Medical History IBS (irritable bowel syndrome) History of cellulitis Elevated cholesterol HTN (hypertension) PONV (postoperative nausea and vomiting) Colon cancer screening Eczema DVT (deep venous thrombosis) Diarrhea Cough Primary osteoarthritis, right hand Primary osteoarthritis, left hand Gout Polymyositis Surgical History (Updated 02/06/24 @ 09:26 by Erna Ren CMA) Hx of shoulder surgery (03/15/24) History of back surgery (~2019) Hx of endoscopy H/O colonoscopy Social History Are you a primary janitor caretaker to a significant other at home: No Do you presently have visiting nurse or other home services: No Alcohol intake: never Patient Tobacco Use Status: Never used Tobacco e-Cigarette/Vaping Use: Never Used Current occupational status: retired and disabled 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 Frias continues to do well after undergoing right shoulder rotator cuff repair surgery on 11/22/2023. She will continue going to formal physical therapy for now. She will gradually transition to a home exercise program. The do's and don'ts of lifting were discussed at length with the patient. The patient can return to work when she feels comfortable doing so as long as she does not perform any heavy lifting duties. She will contact me prior to her follow-up appointment in 2 months should any questions or concerns arise. Feel free to call me at any time should questions regarding her orthopedic management arise. Coding Level of Care Code Global (27004) Diagnoses Right shoulder pain M25.511
== END 2024-02-06 09:43 | disposition home or self-care (01) ==
PROVIDERS: PCP Internal Medicine; Visit Provider Orthopaedic Surgery
DX: M25.511 Pain in right shoulder (principal)
CPT/HCPCS: 99024

== ENCOUNTER → 2024-02-06 09:12 | Outpatient (BNVA) | payer MEDICARE, OTHER, SELFPAY | PROVIDERS: PCP Internal Medicine; Visit Provider Orthopaedic Surgery | DX: M25.511 Pain in right shoulder (principal); Z98.890 Other specified postprocedural states | CPT/HCPCS: 99212 ==

== ENCOUNTER 2024-02-13 11:59 | Outpatient (AMB) | payer MEDICARE, OTHER, SELFPAY ==
[2024-02-13 12:01] VITALS: BP 128/72; PULSE 66; O2SAT 96; BMI 34.0
--- NOTE | 2024-02-13 12:01 | HO.NEPHOV ---
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 Media Director Required: No Accompanied by: Self / Same As Patient Allergies hydroxychloroquine [Plaquenil] Allergy (Severe, Verified 02/13/24 12:06) Rash codeine [Codeine] Allergy (Intermediate, Verified 02/13/24 12:06) NAUSEA & VOMITING methotrexate Allergy (Intermediate, Verified 02/13/24 12:06) Diarrhea oxycodone Allergy (Intermediate, Verified 02/13/24 12:06) dizziness, nausea, vomiting tramadol Allergy (Intermediate, Verified 02/13/24 12:06) Diarrhea metronidazole Allergy (Unknown, Verified 02/13/24 12:07) Vomiting hydromorphone [From Dilaudid] Adverse Reaction (Verified 02/13/24 12:06) Vomiting Medication List - Last Reconciled 02/13/24 by Dexter Stewart MD acetaminophen ER 650 mg PO Q8H PRN allopurinol 100 mg PO DAILY atorvastatin 20 mg PO DAILY calcium citrate-vitamin D3 315 mg-6.25 mcg (250 unit) (Citracal + Vitamin D Maximum) 1 tab PO DAILY ciprofloxacin HCl 250 mg PO DAILY furosemide 20 mg PO QAM ibuprofen 800 mg PO Q8H PRN 30 days leflunomide 10 mg PO DAILY metoprolol succinate ER 100 mg PO DAILY pantoprazole 40 mg PO DAILY vitamin B complex (B Complex-Vitamin B12 tablet) 1 tab PO DAILY [Vitamin D3 2,000 multiple units PO DAILY] HPI Comments Details: . Karol is a pleasant 68-year-old woman with a history of has been normal renal function. About 2 months ago she underwent a shoulder surgery. She has been taking ibuprofen 80 mg a day. About 2 weeks ago she had abdominal discomfort followed by diarrhea and vomiting. She was treated with ciprofloxacin and metronidazole. Two weeks ago she underwent blood work which should serum creatinine of 2.67 mg with a BUN of 66. Per potassium was 3.1. She was referred to days ago for evaluation of JÚNIOR. Of note she has had a rash in her right leg which has been itchy and she was treated with antibiotics. She has no history of gross hematuria no polyuria polydipsia. No cough no expectoration no hemoptysis. No shortness of breath no chest pain At present she has no diarrhea. [facility], [facility] Medical History (Updated 02/13/24 @ 12:21 by Dexter Stewart MD) IBS (irritable bowel syndrome) History of cellulitis Elevated cholesterol HTN (hypertension) PONV (postoperative nausea and vomiting) Colon cancer screening Eczema DVT (deep venous thrombosis) Diarrhea Cough Primary osteoarthritis, right hand Primary osteoarthritis, left hand Gout Polymyositis Surgical History Hx of shoulder surgery (11/22/23) History of back surgery (~2019) Hx of endoscopy H/O colonoscopy Social History Are you a primary account executive healthcare to a significant other at home: No Do you presently have visiting nurse or other home services: No Alcohol intake: never Patient Tobacco Use Status: Never used Tobacco e-Cigarette/Vaping Use: Never Used Current occupational status: retired and disabled 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 Physical Exam Vital Signs: Last Vital Signs Pulse 66 02/13/24 12:01 BP 128/72 02/13/24 12:01 Pulse Ox 96 02/13/24 12:01 Oxygen Delivery Method Room Air 02/13/24 12:01 BMI result Body Mass Index 34.0 Const General: comfortable Nutritional Appearance: well nourished Orientation/consciousness: patient oriented x3 HEENT Head: No normal to inspection Mouth: moist mucous membranes Neck Neck: Yes supple and Yes no JVD Resp Auscultation: clear to auscultation bilaterally, no rales and rub present Cardio Jugular venous distension: no JVD Palpation: no palpable S3 and no palpable S4 Heart sounds: no rubs GI Palpation (GI): Soft to palpation and nontender Percussion: No Fluid wave present General: Yes no CVA tenderness Back/Spine/Pelvis Back: no CVA tenderness Skin General skin exam: Excoriation Rashes: rashes noted (Both lower extremity) Neuro General: patient oriented x3 Extrem General: Yes no pedal edema and No clubbing Results Reviewed Nephrology Results: Hgb 11.5 g/dl (12.0-16.0) L 01/31/24 WBC 10.6 X10*3/uL (4.8-10.8) 01/31/24 Plt Count 278 X10*3/uL (160-400) 01/31/24 Sodium 141 mmol/L (135-145) 01/31/24 Potassium 3.1 mmol/L (3.3-5.1) L 01/31/24 Chloride 103 mmol/L (96-108) 01/31/24 Carbon Dioxide 22 mmol/L (22-29) 01/31/24 BUN 66 mg/dL (9-16) H 01/31/24 Creatinine 2.69 mg/dL (0.5-1.4) H 01/31/24 Calcium 9.9 mg/dL (8.4-10.2) 01/31/24 Urine Protein Pending 02/13/24 Urine Creatinine Pending 02/13/24 Assessment & Plan Assessment & Plan (1) JÚNIOR (acute kidney injury): Code(s): N17.9 - Acute kidney failure, unspecified Category: Medical (2) Edema: Code(s): R60.9 - Edema, unspecified Category: Medical Plan . 68 woman with JÚNIOR. Different diagnosis would include hypoperfusion from volume depletion secondary to diarrhea and continued intake of NSAIDs. Glomerular nephritis or interstitial disease should be ruled out. With the new skin rash vasculitis should also be considered. Obstructive uropathy seems unlikely based on the clinical picture. I have initiated a workup including repeat renal panel today along with serologies- Anca, anti-GBM antibody, complement C3-C4 and SPEP. Check urine protein creatinine ratio. The meantime encouraged her to discontinue ibuprofen. Increase p.o. fluid intake. Further workup will be based on the outcome of this patient investigations. I will see her again in the next 5 days Orders: Orders Comprehensive Met. Panel Today N17.9 - Acute kidney failure, unspecified Total Protein Urine Random Today N17.9 - Acute kidney failure, unspecified UA and rflx microscopic Today N17.9 - Acute kidney failure, unspecified Proteinase 3 PR3 Antibodies Today N17.9 - Acute kidney failure, unspecified Neutrophil Cytoplasma Ab Today N17.9 - Acute kidney failure, unspecified Complement C4 Today N17.9 - Acute kidney failure, unspecified Protein Electrophoresis, Serum Today N17.9 - Acute kidney failure, unspecified Complete Blood Count no Diff Today N17.9 - Acute kidney failure, unspecified Sodium Urine Random Today N17.9 - Acute kidney failure, unspecified Creatinine Urine Today N17.9 - Acute kidney failure, unspecified Myeloperoxidase Antibody Today N17.9 - Acute kidney failure, unspecified Complement C3 Today N17.9 - Acute kidney failure, unspecified SANGITA Reflex Titer and Pattern Today N17.9 - Acute kidney failure, unspecified Anti Glomerular Basement Memb Today N17.9 - Acute kidney failure, unspecified Urine Eosinophil Today N17.9 - Acute kidney failure, unspecified Coding Level of Care Code New Pt Level 4 (35188) Diagnoses JÚNIOR (acute kidney injury) N17.9 Edema R60.9
== END 2024-02-13 12:23 | disposition home or self-care (01) ==
PROVIDERS: PCP Internal Medicine; Referring Provider Internal Medicine; Visit Provider Internal Medicine Hypertension Specialist
DX: N17.9 Acute kidney failure, unspecified (principal); R60.9 Edema, unspecified
CPT/HCPCS: 99204

== ENCOUNTER → 2024-02-13 11:59 | Outpatient (BNVA) | payer MEDICARE, OTHER, SELFPAY | PROVIDERS: PCP Internal Medicine; Referring Provider Internal Medicine; Visit Provider Internal Medicine Hypertension Specialist | DX: N17.9 Acute kidney failure, unspecified (principal); R60.9 Edema, unspecified | CPT/HCPCS: 36415; 80053; 81001; 82570; 83520; 84156; 84165; 84300; 85027; 86021; 86036; 86038; 86160; 99202 ==

== ENCOUNTER 2024-02-13 12:33 | Outpatient (REF) | payer MEDICARE, OTHER, SELFPAY ==
[2024-02-13 13:34] LABS: Hematocrit 30.8 % (37.0-47.0); Hemoglobin 9.9 g/dl (12.0-16.0); Mean Corpuscular HGB Conc 32.1 g/dl (31.0-35.0); Mean Corpuscular Hemoglobin 31.2 pg (27.0-33.0); Mean Corpuscular Volume 97.2 fL (80.0-98.0); Mean Platelet Volume 9.5 fL (9.4-12.3); Platelet Count 262 X10*3/uL (160-400); Red Blood Count 3.17 X10*6/uL (4.20-5.50); Red Cell Distribution Width 14.8 % (11.0-16.0); White Blood Count 7.4 X10*3/uL (4.8-10.8)
[2024-02-13 13:45] LABS: Appearance Urine Clear; Color Urine Yellow; Glucose Urine UA Negative (Negative); Leukocyte Esterase Urine Trace (Negative); Nitrite Urine Negative (Negative); PH 5.5 (5.0-9.0); Specific Gravity - Urine 1.015 (1.005-1.025); UMIC TRIGGER UA YES; Urine Blood Negative (Negative); Urine Ketones Negative (Negative); Urine Protein Negative (Neg-Trace)
[2024-02-13 13:48] LABS: Bacteria Urine None Seen (None Seen); RBC Urine 0-2 /HPF (0-2)
[2024-02-13 13:51] LABS: Alanine Aminotransferase 8 U/L (0-31); Albumin Level 3.6 g/dL (3.5-5.0); Alkaline Phosphatase 78 U/L (39-117); Anion Gap 14 (12-20); Aspartate Amino Transferase 19 U/L (5-31); Bilirubin Total 0.4 mg/dL (0.0-1.0); Blood Urea Nitrogen 42 mg/dL (9-16); Calcium 9.7 mg/dL (8.4-10.2); Carbon Dioxide 23 mmol/L (22-29); Chloride 112 mmol/L (96-108); Estimated Glomerular Filt Rate 31; Glucose Random 112 mg/dL (60-115); Potassium 3.6 mmol/L (3.3-5.1); Sodium 145 mmol/L (135-145); Total Protein 6.5 g/dL (6.5-8.0)
[2024-02-13 14:15] LABS: Creatinine Urine 98.19 mg/dL; Total Protein Urine Random 14 mg/dL (<12)
[2024-02-14 21:14] LABS: Complement C3 81 mg/dL (83-193)
[2024-02-16 15:13] LABS: Anti Nuclear Antibody Screen NEGATIVE (NEGATIVE)
[2024-02-17 17:07] LABS: Anti Glomerular Basement Memb <1.0 AI; Myeloperoxidase Antibody <1.0 AI; Proteinase 3 PR3 Antibodies <1.0 AI
[2024-02-17 22:54] LABS: Prot Elec - Albumin 3.4 g/dL (3.8-4.8); Prot Elec - Alpha1 0.4 g/dL (0.2-0.3); Prot Elec - Beta 1 0.3 g/dL (0.4-0.6); Prot Elec - Beta 2 0.3 g/dL (0.2-0.5); Prot Elec - Gamma 0.7 g/dL (0.8-1.7); Prot Elec - Total Protein 6.1 g/dL (6.1-8.1)
[2024-02-18 16:43] LABS: Neutrophil Cyto Ab Screen NEGATIVE (NEGATIVE)
== END 2024-02-13 12:34 | disposition home or self-care (01) ==
LOC: HO.10HDL 12:33
PROVIDERS: Visit Provider Internal Medicine Hypertension Specialist
DX: Z13.89 Encounter for screening for other disorder (principal)
CPT/HCPCS: 36415; 80053; 81001; 82570; 83520; 84156; 84165; 84300; 85027; 86021; 86036; 86038; 86160

== ENCOUNTER 2024-02-18 10:30 | Outpatient (AMB) | payer MEDICARE, OTHER, SELFPAY ==
[2024-02-18 10:38] VITALS: BP 126/80; PULSE 66; O2SAT 97; BMI 34.6
--- NOTE | 2024-02-18 10:38 | HO.NEPHOV ---
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 Required: No Accompanied by: Self / Same As Patient Allergies hydroxychloroquine [Plaquenil] Allergy (Severe, Verified 02/18/24 10:41) Rash codeine [Codeine] Allergy (Intermediate, Verified 02/18/24 10:41) NAUSEA & VOMITING methotrexate Allergy (Intermediate, Verified 02/18/24 10:41) Diarrhea oxycodone Allergy (Intermediate, Verified 02/18/24 10:41) dizziness, nausea, vomiting tramadol Allergy (Intermediate, Verified 02/18/24 10:41) Diarrhea metronidazole Allergy (Unknown, Verified 02/18/24 10:41) Vomiting hydromorphone [From Dilaudid] Adverse Reaction (Verified 02/18/24 10:41) Vomiting Medication List - Last Reconciled 02/18/24 by Dexter Stewart MD acetaminophen ER 650 mg PO Q8H PRN allopurinol 100 mg PO DAILY atorvastatin 20 mg PO DAILY calcium citrate-vitamin D3 315 mg-6.25 mcg (250 unit) (Citracal + Vitamin D Maximum) 1 tab PO DAILY ciprofloxacin HCl 250 mg PO DAILY furosemide 20 mg PO QAM leflunomide 10 mg PO DAILY metoprolol succinate ER 100 mg PO DAILY pantoprazole 40 mg PO DAILY vitamin B complex (B Complex-Vitamin B12 tablet) 1 tab PO DAILY [Vitamin D3 2,000 multiple units PO DAILY] HPI Comments Details: . Karol is a pleasant 68-year-old woman with a history of has been normal renal function. About 2 months ago she underwent a shoulder surgery. She has been taking ibuprofen 80 mg a day. About 2 weeks ago she had abdominal discomfort followed by diarrhea and vomiting. She was treated with ciprofloxacin and metronidazole. Two weeks ago she underwent blood work which should serum creatinine of 2.67 mg with a BUN of 66. Per potassium was 3.1. She was referred to days ago for evaluation of JÚNIOR. Of note she has had a rash in her right leg which has been itchy and she was treated with antibiotics. She has no history of gross hematuria no polyuria polydipsia. No cough no expectoration no hemoptysis. No shortness of breath no chest pain At present she has no diarrhea. 02/18/2024 c/o Icthing Overall feeling better than previous visit [facility] Medical History (Updated 02/13/24 @ 12:21 by Dexter Stewart MD) IBS (irritable bowel syndrome) History of cellulitis Elevated cholesterol HTN (hypertension) PONV (postoperative nausea and vomiting) Colon cancer screening Eczema DVT (deep venous thrombosis) Diarrhea Cough Primary osteoarthritis, right hand Primary osteoarthritis, left hand Gout Polymyositis Surgical History Hx of shoulder surgery (11/22/23) History of back surgery (~2019) Hx of endoscopy H/O colonoscopy Social History Are you a primary director critical care to a significant other at home: No Do you presently have visiting nurse or other home services: No Alcohol intake: never Patient Tobacco Use Status: Never used Tobacco e-Cigarette/Vaping Use: Never Used Current occupational status: retired and disabled 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 Physical Exam Vital Signs: Last Vital Signs Pulse 66 02/18/24 10:38 BP 126/80 02/18/24 10:38 Pulse Ox 97 02/18/24 10:38 Oxygen Delivery Method Room Air 02/18/24 10:38 BMI result Body Mass Index 34.6 Const General: comfortable Nutritional Appearance: well nourished Orientation/consciousness: patient oriented x3 HEENT Head: No normal to inspection Mouth: moist mucous membranes Neck Neck: Yes supple and Yes no JVD Resp Auscultation: clear to auscultation bilaterally and no rales Cardio Jugular venous distension: no JVD Palpation: no palpable S3 and no palpable S4 Heart sounds: no rubs GI Palpation (GI): Soft to palpation and nontender Percussion: No Fluid wave present General: Yes no CVA tenderness Back/Spine/Pelvis Back: no CVA tenderness Skin General skin exam: Excoriation Rashes: rashes noted (Both lower extremity) Neuro General: patient oriented x3 Extrem General: Yes no pedal edema and No clubbing Results Reviewed Nephrology Results: Hgb 9.9 g/dl (12.0-16.0) L 02/13/24 WBC 7.4 X10*3/uL (4.8-10.8) 02/13/24 Plt Count 262 X10*3/uL (160-400) 02/13/24 Sodium 145 mmol/L (135-145) 02/13/24 Potassium 3.6 mmol/L (3.3-5.1) 02/13/24 Chloride 112 mmol/L (96-108) H 02/13/24 Carbon Dioxide 23 mmol/L (22-29) 02/13/24 BUN 42 mg/dL (9-16) H 02/13/24 Creatinine 1.65 mg/dL (0.5-1.4) H 02/13/24 Calcium 9.7 mg/dL (8.4-10.2) 02/13/24 Urine Protein Negative mg/dL (Neg-Trace) 02/13/24 Urine Creatinine 98.19 mg/dL 02/13/24 Assessment & Plan Assessment & Plan (1) JÚNIOR (acute kidney injury): Code(s): N17.9 - Acute kidney failure, unspecified Category: Medical (2) Edema: Code(s): R60.9 - Edema, unspecified Category: Medical Plan . 68 woman with JÚNIOR. Different diagnosis would include hypoperfusion from volume depletion secondary to diarrhea and continued intake of NSAIDs. Glomerular nephritis or interstitial disease seem unlikely based on the bland urine sediments and negative serology. With the new skin rash vasculitis should also be considered. But serologies have been negative. Obstructive uropathy seems unlikely based on the clinical picture. Serum creatinine is improved. Continue to avoid NSAIDs. Increase p.o. fluid intake. Renal ultrasonogram. Pending She has anemia with is rather new. Check iron stores. SPEP pending Orders: Orders Complete Blood Count no Diff Today N17.9 - Acute kidney failure, unspecified IRON PROFILE Today N17.9 - Acute kidney failure, unspecified Ferritin Today N17.9 - Acute kidney failure, unspecified US renal BI Today N17.9 - Acute kidney failure, unspecified Comprehensive Met. Panel Today N17.9 - Acute kidney failure, unspecified Vitamin D 25-OH (D2 and D3) Today N17.9 - Acute kidney failure, unspecified Medications: New prednisone 10 mg PO DAILY 7 tabs 0RF Discontinued ibuprofen Discontinued Reason: Duplicate 800 mg PO Q8H 30 days PRN 90 tabs 3RF pain S52.209D - Unspecified fracture of shaft of unspecified ulna, subsequent encounter for closed fracture with routine healing Coding Level of Care Code Est Pt Level 4 (41177) Diagnoses JÚNIOR (acute kidney injury) N17.9 Edema R60.9
== END 2024-02-18 11:09 | disposition home or self-care (01) ==
PROVIDERS: PCP Internal Medicine; Visit Provider Internal Medicine Hypertension Specialist
DX: N17.9 Acute kidney failure, unspecified (principal); R60.9 Edema, unspecified
CPT/HCPCS: 99214

== ENCOUNTER 2024-02-18 11:16 | Outpatient (REF) | payer MEDICARE, OTHER, SELFPAY ==
[2024-02-18 13:44] LABS: Hematocrit 33.6 % (37.0-47.0); Hemoglobin 10.5 g/dl (12.0-16.0); Mean Corpuscular HGB Conc 31.3 g/dl (31.0-35.0); Mean Corpuscular Hemoglobin 30.9 pg (27.0-33.0); Mean Corpuscular Volume 98.8 fL (80.0-98.0); Mean Platelet Volume 9.7 fL (9.4-12.3); Platelet Count 218 X10*3/uL (160-400); Red Cell Distribution Width 15.1 % (11.0-16.0); White Blood Count 5.5 X10*3/uL (4.8-10.8)
[2024-02-18 14:04] LABS: Alanine Aminotransferase 11 U/L (0-31); Albumin Level 3.8 g/dL (3.5-5.0); Alkaline Phosphatase 76 U/L (39-117); Anion Gap 12 (12-20); Aspartate Amino Transferase 24 U/L (5-31); Bilirubin Total 0.6 mg/dL (0.0-1.0); Blood Urea Nitrogen 22 mg/dL (9-16); Calcium 9.5 mg/dL (8.4-10.2); Carbon Dioxide 27 mmol/L (22-29); Chloride 107 mmol/L (96-108); Estimated Glomerular Filt Rate 48; Glucose Random 115 mg/dL (60-115); Iron 82 mcg/dL (30-160); Percent Iron Saturation 38 % (15-50); Potassium 4.3 mmol/L (3.3-5.1); Sodium 142 mmol/L (135-145); Total Iron Binding Capacity 215 mcg/dL (228-428); Total Protein 6.7 g/dL (6.5-8.0); Unsaturated Iron Binding 133 ug/dL
[2024-02-18 14:20] LABS: Ferritin 844 ng/mL (10-250)
[2024-02-22 15:08] LABS: Vitamin D 25-OH, D2 <4 ng/mL; Vitamin D 25-OH, D3 32 ng/mL; Vitamin D 25-OH, Total 32 ng/mL (30-100)
== END 2024-02-18 11:17 | disposition home or self-care (01) ==
LOC: HO.10HDL 11:16
PROVIDERS: Visit Provider Internal Medicine Hypertension Specialist
DX: N17.9 Acute kidney failure, unspecified (principal)
CPT/HCPCS: 36415; 80053; 82306; 82728; 83540; 85027; 99212

== ENCOUNTER 2024-02-20 13:00 | Outpatient (REF) | payer MEDICARE, OTHER, SELFPAY ==
--- NOTE | ~2024-02-20 | US_ITS ---
EXAMINATION: US RETROPERITONEAL LIMITED (RENAL ONLY) CLINICAL INFORMATION: Acute kidney failure, unspecified. COMPARISON: Ultrasound abdomen complete 03/21/2021. Renal ultrasound 12/12/2018. CT abdomen and pelvis 11/25/2014. TECHNIQUE: Real-time imaging of the kidneys. FINDINGS: RIGHT KIDNEY: 10.2 x 5.2 x 5.0 cm (SAG x AP x TRV). The kidney is normal in size and contour. No calculi or focal parenchymal lesions. No hydronephrosis. Kidney is borderline echogenic. LEFT KIDNEY: 9.3 x 4.2 x 5.2 cm (SAG x AP x TRV). The kidney is normal in size and contour. No calculi or focal parenchymal lesions. No hydronephrosis. Kidney is borderline echogenic. US/US renal BI IMPRESSION: 1. No hydronephrosis or nephrolithiasis. 2. Kidneys are borderline echogenic which can be seen in the setting of early medical renal disease.
== END 2024-02-20 13:01 | disposition home or self-care (01) ==
LOC: HO.HMGCX 13:00
PROVIDERS: PCP Internal Medicine; Visit Provider Internal Medicine Hypertension Specialist
DX: N17.9 Acute kidney failure, unspecified (principal)
CPT/HCPCS: 76775

== ENCOUNTER 2024-03-04 13:00 | Outpatient (RCR) | payer MEDICARE, OTHER, SELFPAY ==
--- NOTE | 2023-12-19 09:21 | MHC.PT.EP ---
[facility] [place] Office [place] Office [place] Office [address] Linda Pepe [address] [phone] F: [phone] F: [phone] F: [phone] F: [phone] Physical Therapy Plan of Care Date of Evaluation: 12/19/23 Date of Surgery: 11/22/23 Diagnosis: post op 11/22/23 R shoulder - After reviewing operative note, DCE/SAD, Rotator Cuff repair, bicep tenotomy. Assessment: Patient is a 68 year old R handed female who presents with s/s consistent with R shoulder pain, s/p rotator cuff repair, DCE, SAD and biceps tenomoty. 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 Patient past medical history includes back surgery, IBS and blood clots. Current impairments include pain, posture, ROM, strength, activity tolerance and functional mobility. Functional limitations include decreased ability to sleep, reach, left and perform most UE activities with RUE.. Patient is motivated with good rehab potential. Skilled PT will address impairments and functional limitations in order to achieve goals. Frequency and Duration: The patient will be seen 2x/week for 5 weeks Short Term Goals: I with HEP - 2 weeks PROM progression per protocol - 3 weeks Initiate isometrics without adverse reactions - 3 weeks Mcfp Goals: Max pain with sleeping 2/10 - 5 weeks AROM full - 6 weeks Strength 4-/5 - 8 weeks Max pain 2/10 with return to work - 8 weeks Treatment Plan: Modalities to reduce pain, spasms and effusion. Manual therapy to restore motion and function. Therapeutic exercise to improve strength and flexibility. Neuromuscular re-education for posture and balance. Therapeutic activities to return to functional activities of daily living. Electronically signed by: Riley Tracey, PT Please sign and return to therapist. Thank you for your referral.
== END 2024-06-17 14:44 | disposition home or self-care (01) ==
LOC: HO.PTCHIC 13:00
PROVIDERS: PCP Internal Medicine; Visit Provider Physician Assistant
DX: M25.811 Other specified joint disorders, right shoulder (principal); Z98.890 Other specified postprocedural states
CPT/HCPCS: 97110; 97140; 97162

== ENCOUNTER 2024-04-16 14:22 | Outpatient (AMB) | payer MEDICARE, OTHER, SELFPAY ==
--- NOTE | 2024-04-16 14:24 | A.OFFVIS_ITS ---
Intake Visit Reasons: PO-Rt RTC Repair 11/22/23 DR Martin Note: Karol is a 68 year old female who presents today for follow up evaluation of right RTC Repair by Dr. Miner, DOS 11/22/23. Patient reports she continues to have mild intermittent discomfort in her right shoulder. Patient states she finished PT and she believes that it was very helpful. She has returned to work. She denies any fevers or chills. Allergies hydroxychloroquine [Plaquenil] Allergy (Severe, Verified 04/16/24 14:25) Rash codeine [Codeine] Allergy (Intermediate, Verified 04/16/24 14:25) NAUSEA & VOMITING methotrexate Allergy (Intermediate, Verified 04/16/24 14:25) Diarrhea oxycodone Allergy (Intermediate, Verified 04/16/24 14:25) dizziness, nausea, vomiting tramadol Allergy (Intermediate, Verified 04/16/24 14:25) Diarrhea metronidazole Allergy (Unknown, Verified 04/16/24 14:25) Vomiting hydromorphone [From Dilaudid] Adverse Reaction (Verified 04/16/24 14:25) Vomiting Medication List - Last Reconciled 04/16/24 by Alejandro Miner MD acetaminophen ER 650 mg PO Q8H PRN allopurinol 100 mg PO DAILY atorvastatin 20 mg PO DAILY calcium citrate-vitamin D3 315 mg-6.25 mcg (250 unit) (Citracal + Vitamin D Maximum) 1 tab PO DAILY furosemide 20 mg PO QAM leflunomide 10 mg PO DAILY metoprolol succinate ER 100 mg PO DAILY pantoprazole 40 mg PO DAILY vitamin B complex (B Complex-Vitamin B12 tablet) 1 tab PO DAILY [Vitamin D3 2,000 multiple units PO DAILY] [facility] Medical History (Updated 02/13/24 @ 12:21 by Dexter Stewart MD) IBS (irritable bowel syndrome) History of cellulitis Elevated cholesterol HTN (hypertension) PONV (postoperative nausea and vomiting) Colon cancer screening Eczema DVT (deep venous thrombosis) Diarrhea Cough Primary osteoarthritis, right hand Primary osteoarthritis, left hand Gout Polymyositis Surgical History Hx of shoulder surgery (11/22/23) History of back surgery (~2019) Hx of endoscopy H/O colonoscopy Social History Are you a primary family day care provider to a significant other at home: No Do you presently have visiting nurse or other home services: No Alcohol intake: never Patient Tobacco Use Status: Never used Tobacco e-Cigarette/Vaping Use: Never Used Current occupational status: retired and disabled 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 Physical Exam Const Other: Well-nourished well-developed very friendly female awake alert and oriented x3 in no acute distress Extrem Other: Bilateral upper extremity examination shows good capillary refill, no skin lesions noted, normal sensation light touch Right shoulder examination shows full range of motion when compared to her left shoulder, minimal discomfort with resisted forward flexion, no discomfort with resisted internal or external rotation, no instability Assessment & Plan Assessment & Plan (1) Right shoulder pain: Code(s): M25.511 - Pain in right shoulder Category: Medical Plan Ms. Frias continues to do very well after undergoing right shoulder rotator cuff repair surgery on 11/22/2023. She will continue with her [id number] exercises to prevent stiffness. The do's and don'ts of lifting were discussed at length with the patient. She will follow up with me on an as-needed basis should her symptoms worsen in any way. Feel free to call me at any time should questions regarding her orthopedic management arise. I spent 21 minutes in reviewing the patient's records and imaging studies, seeing the patient and documenting in the medical record. Coding Level of Care Code Est Pt Level 3 (43114) Diagnoses Right shoulder pain M25.511
== END 2024-04-16 14:41 | disposition home or self-care (01) ==
PROVIDERS: PCP Internal Medicine; Visit Provider Orthopaedic Surgery
DX: M25.511 Pain in right shoulder (principal)
CPT/HCPCS: 99213

== ENCOUNTER → 2024-04-16 14:22 | Outpatient (BNVA) | payer MEDICARE, OTHER, SELFPAY | PROVIDERS: PCP Internal Medicine; Visit Provider Orthopaedic Surgery | DX: M25.511 Pain in right shoulder (principal) | CPT/HCPCS: 99212 ==

== ENCOUNTER 2024-05-26 10:17 | Outpatient (AMB) | payer MEDICARE, OTHER, SELFPAY ==
[2024-05-26 10:21] VITALS: BP 136/78; PULSE 71; O2SAT 98; BMI 34.6
--- NOTE | 2024-05-26 10:21 | HO.NEPHOV ---
Vital Signs 05/26/24 10:21 Height 5 ft 1 in Weight 183 lb BMI 34.6 BP 136/78 Blood Pressure Location Rt brachial Position Sitting Pulse 71 Pulse Source Pulse Oximeter Pulse Oximetry (%) 98 Oxygen Delivery Method Room Air Intake Visit Reasons: Acute kidney failure/ LVM Communications Field Technician Required: No Accompanied by: Self / Same As Patient Allergies hydroxychloroquine [Plaquenil] Allergy (Severe, Verified 05/26/24 10:24) Rash codeine [Codeine] Allergy (Intermediate, Verified 05/26/24 10:24) NAUSEA & VOMITING methotrexate Allergy (Intermediate, Verified 05/26/24 10:24) Diarrhea oxycodone Allergy (Intermediate, Verified 05/26/24 10:24) dizziness, nausea, vomiting tramadol Allergy (Intermediate, Verified 05/26/24 10:24) Diarrhea metronidazole Allergy (Unknown, Verified 05/26/24 10:24) Vomiting hydromorphone [From Dilaudid] Adverse Reaction (Verified 05/26/24 10:24) Vomiting Medication List - Last Reconciled 05/26/24 by Dexter Stewart MD acetaminophen ER 650 mg PO Q8H PRN allopurinol 100 mg PO DAILY atorvastatin 20 mg PO DAILY calcium citrate-vitamin D3 315 mg-6.25 mcg (250 unit) (Citracal + Vitamin D Maximum) 1 tab PO DAILY furosemide 20 mg PO QAM leflunomide 10 mg PO DAILY metoprolol succinate ER 100 mg PO DAILY pantoprazole 40 mg PO DAILY vitamin B complex (B Complex-Vitamin B12 tablet) 1 tab PO DAILY [Vitamin D3 2,000 multiple units PO DAILY] HPI Comments Details: . Karol is a pleasant 68-year-old woman with a history of has been normal renal function. About 2 months ago she underwent a shoulder surgery. She has been taking ibuprofen 80 mg a day. About 2 weeks ago she had abdominal discomfort followed by diarrhea and vomiting. She was treated with ciprofloxacin and metronidazole. Two weeks ago she underwent blood work which should serum creatinine of 2.67 mg with a BUN of 66. Per potassium was 3.1. She was referred to days ago for evaluation of JÚNIOR. Of note she has had a rash in her right leg which has been itchy and she was treated with antibiotics. She has no history of gross hematuria no polyuria polydipsia. No cough no expectoration no hemoptysis. No shortness of breath no chest pain At present she has no diarrhea. 02/18/2024 c/o Icthing;Overall feeling better than previous visit 05/26/24 c/o swelling in right leg No dyspnea PFSH Medical History (Updated 02/13/24 @ 12:21 by Dexter Stewart MD) IBS (irritable bowel syndrome) History of cellulitis Elevated cholesterol HTN (hypertension) PONV (postoperative nausea and vomiting) Colon cancer screening Eczema DVT (deep venous thrombosis) Diarrhea Cough Primary osteoarthritis, right hand Primary osteoarthritis, left hand Gout Polymyositis Surgical History Hx of shoulder surgery (11/22/23) History of back surgery (~2019) Hx of endoscopy H/O colonoscopy Social History Are you a primary healthcare consultant to a significant other at home: No Do you presently have visiting nurse or other home services: No Alcohol intake: never Patient Tobacco Use Status: Never used Tobacco e-Cigarette/Vaping Use: Never Used Current occupational status: retired and disabled 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 Physical Exam Vital Signs: Last Vital Signs Pulse 71 05/26/24 10:21 BP 136/78 05/26/24 10:21 Pulse Ox 98 05/26/24 10:21 Oxygen Delivery Method Room Air 05/26/24 10:21 BMI result Body Mass Index 34.6 Const General: comfortable Nutritional Appearance: well nourished Orientation/consciousness: patient oriented x3 HEENT Head: No normal to inspection Mouth: moist mucous membranes Neck Neck: Yes supple and Yes no JVD Resp Auscultation: clear to auscultation bilaterally and no rales Cardio Jugular venous distension: no JVD Palpation: no palpable S3 and no palpable S4 Heart sounds: no rubs GI Palpation (GI): Soft to palpation and nontender Percussion: No Fluid wave present General: Yes no CVA tenderness Back/Spine/Pelvis Back: no CVA tenderness Skin General skin exam: Excoriation Rashes: rashes noted (Both lower extremity) Neuro General: patient oriented x3 Extrem General: No clubbing Results Reviewed Nephrology Results: Hgb 10.5 g/dl (12.0-16.0) L 02/18/24 WBC 5.5 X10*3/uL (4.8-10.8) 02/18/24 Plt Count 218 X10*3/uL (160-400) 02/18/24 Sodium 142 mmol/L (135-145) 02/18/24 Potassium 4.3 mmol/L (3.3-5.1) 02/18/24 Chloride 107 mmol/L (96-108) 02/18/24 Carbon Dioxide 27 mmol/L (22-29) 02/18/24 BUN 22 mg/dL (9-16) H 02/18/24 Creatinine 1.13 mg/dL (0.5-1.4) 02/18/24 Calcium 9.5 mg/dL (8.4-10.2) 02/18/24 Urine Protein Negative mg/dL (Neg-Trace) 02/13/24 Urine Creatinine 98.19 mg/dL 02/13/24 Renal US 02/20/24 Assessment & Plan Assessment & Plan (1) JÚNIOR (acute kidney injury): Code(s): N17.9 - Acute kidney failure, unspecified Category: Medical (2) Edema: Code(s): R60.9 - Edema, unspecified Category: Medical Plan . 68 woman with JÚNIOR. Different diagnosis would include hypoperfusion from volume depletion secondary to diarrhea and continued intake of NSAIDs. Glomerular nephritis or interstitial disease seem unlikely based on the bland urine sediments and negative serology. With the new skin rash vasculitis should also be considered. But serologies have been negative. ANCA reordered Obstructive uropathy seems unlikely based on the clinical picture. Serum creatinine is improved. Continue to avoid NSAIDs. Increase p.o. fluid intake. Renal ultrasonogram. normal She has anemia HCT improvingIRon adequate SPEP noted- will order Immunefixation LEg edema Check doppler to r/o DVT Increase LAsix to 40 mg QD and reassess Orders: Orders Total Protein Urine Random 1 Week R60.9 - Edema, unspecified Creatinine Urine 1 Week R60.9 - Edema, unspecified Neutrophil Cytoplasma Ab 1 Week N17.9 - Acute kidney failure, unspecified, R60.9 - Edema, unspecified Complete Blood Count Auto Diff 1 Week R60.9 - Edema, unspecified Comprehensive Met. Panel 1 Week R60.9 - Edema, unspecified Complement C3 1 Week N17.9 - Acute kidney failure, unspecified, R60.9 - Edema, unspecified Complement C4 1 Week N17.9 - Acute kidney failure, unspecified, R60.9 - Edema, unspecified US duplex arterial venous comp Today R60.9 - Edema, unspecified Immunofixation Pnl, Serum 1 Week N17.9 - Acute kidney failure, unspecified US venous duplex LE RT Today R60.9 - Edema, unspecified Medications: Changed From furosemide 20 mg PO QAM To furosemide 40 mg PO QAM Coding Level of Care Code Est Pt Level 4 (70920) Diagnoses JÚNIOR (acute kidney injury) N17.9 Edema R60.9
== END 2024-05-26 10:49 | disposition home or self-care (01) ==
PROVIDERS: PCP Internal Medicine; Visit Provider Internal Medicine Hypertension Specialist
DX: N17.9 Acute kidney failure, unspecified (principal); R60.9 Edema, unspecified
CPT/HCPCS: 99214

== ENCOUNTER 2024-05-26 11:11 | Outpatient (REF) | payer MEDICARE, OTHER, SELFPAY ==
--- NOTE | ~2024-05-26 | US_ITS ---
EXAMINATION: US TRIPLEX LOWER EXTREMITY, RIGHT CLINICAL INFORMATION: Lower extremity edema COMPARISON: None TECHNIQUE: Color-flow triplex imaging with spectral analysis and compression Doppler were performed on the right lower extremity. FINDINGS: Respiratory variation, normal compression and augmented flow are noted throughout the right lower extremity. The visualized common femoral vein, superficial femoral vein, profunda femoral vein, popliteal vein and midcalf peroneal and posterior tibial venous segments show no evidence of deep venous thrombosis. Echogenic thrombus is seen within the great saphenous vein with recanalized flow. Echogenic thrombus seen within the subcutaneous varicose veins in the lateral thigh. There is partial compressibility of the small saphenous vein in the mid calf with echogenic thrombus and a adjacent branching varicose vein. There is no Velasquez's cyst. US/US venous duplex LE RT IMPRESSION: 1. No evidence of deep venous thrombosis involving the right lower extremity. 2. Superficial thrombophlebitis involving the great saphenous vein, small saphenous vein and varicose veins as described above. Electronically signed by: Gigi Marti MD 05/26/2024 12:23 PM EDT
== END 2024-05-26 11:12 | disposition home or self-care (01) ==
LOC: HO.US 11:11
PROVIDERS: PCP Internal Medicine; Visit Provider Internal Medicine Hypertension Specialist
DX: I83.891 Varicose veins of right lower extremity with other complications (principal)
CPT/HCPCS: 93971; 99212

== ENCOUNTER 2024-06-02 10:57 | Outpatient (REF) | payer MEDICARE, OTHER, SELFPAY ==
[2024-06-02 11:12] LABS: MANUAL DIFF FLAG NO
[2024-06-02 11:45] LABS: Basophils Absolute Auto 0.1 X10*3/uL (0.0-0.2); Basophils Percent Auto 1.4 % (0-2); Eosinophils Absolute Auto 0.3 X10*3/uL (0.0-0.4); Eosinophils Percent Auto 5.7 % (0-4); Hemoglobin 10.6 g/dl (12.0-16.0); Imm Gran Abs Auto 0.02 X10*3/uL (0.00-0.03); Imm Gran Pct Auto 0.3 % (0.0-0.4); Lymphocytes Percent Auto 34.1 % (20-40); Mean Corpuscular HGB Conc 31.2 g/dl (31.0-35.0); Mean Corpuscular Hemoglobin 29.9 pg (27.0-33.0); Mean Corpuscular Volume 95.8 fL (80.0-98.0); Mean Platelet Volume 9.8 fL (9.4-12.3); Monocytes Absolute Auto 0.8 X10*3/uL (0.1-1.2); Monocytes Percent Auto 13.6 % (2-11); Neutrophils Absolute Auto 2.6 x10*3/uL (2.0-8.3); Neutrophils Percent Auto 44.9 % (45-73); Platelet Count 274 X10*3/uL (160-400); Red Blood Count 3.55 X10*6/uL (4.20-5.50); Red Cell Distribution Width 15.8 % (11.0-16.0); White Blood Count 5.8 X10*3/uL (4.8-10.8)
[2024-06-02 11:50] LABS: Appearance Urine Clear; Color Urine Yellow; Glucose Urine UA Negative (Negative); Leukocyte Esterase Urine Trace (Negative); Nitrite Urine Negative (Negative); Specific Gravity - Urine <= 1.005 (1.005-1.025); UMIC TRIGGER UA YES; Urine Blood Negative (Negative); Urine Ketones Negative (Negative); Urine Protein Negative (Neg-Trace)
[2024-06-02 11:55] LABS: Bacteria Urine None Seen (None Seen); Hyaline Casts Urine 0-2 /LPF (0-2); RBC Urine 0-2 /HPF (0-2); Squamous Epithelial Cell Urine 0-2 /HPF (0-2); WBC Urine 0-5 /HPF (0-5)
[2024-06-02 12:19] LABS: Alanine Aminotransferase 8 U/L (0-31); Albumin Level 3.6 g/dL (3.5-5.0); Alkaline Phosphatase 94 U/L (39-117); Anion Gap 11 (12-20); Aspartate Amino Transferase 22 U/L (5-31); Bilirubin Total 0.9 mg/dL (0.0-1.0); Blood Urea Nitrogen 14 mg/dL (9-16); Calcium 8.3 mg/dL (8.4-10.2); Carbon Dioxide 31 mmol/L (22-29); Chloride 106 mmol/L (96-108); Estimated Glomerular Filt Rate > 60; Glucose Random 83 mg/dL (60-115); Potassium 3.3 mmol/L (3.3-5.1); Sodium 145 mmol/L (135-145); Total Protein 6.8 g/dL (6.5-8.0)
[2024-06-02 12:22] LABS: Creatinine Urine 17.11 mg/dL; Total Protein Urine Random < 7 mg/dL (<12)
[2024-06-02 13:19] LABS: EOS Counted 0 CELLS; EOS QC POS YES; EOS Stain Quality OK YES; WBC, Counted 4 CELLS
[2024-06-04 09:44] LABS: Complement C3 142 mg/dL (83-193)
[2024-06-04 11:03] LABS: Neutrophil Cyto Ab Screen NEGATIVE (NEGATIVE)
[2024-06-04 16:23] LABS: IgA 233 mg/dL (70-320); IgG 1027 mg/dL (600-1540); IgM 83 mg/dL (50-300)
== END 2024-06-02 10:58 | disposition home or self-care (01) ==
LOC: HO.LAB 10:57
PROVIDERS: PCP Internal Medicine; Visit Provider Internal Medicine Hypertension Specialist
DX: N17.9 Acute kidney failure, unspecified (principal); R60.9 Edema, unspecified
CPT/HCPCS: 36415; 80053; 81001; 82570; 82784; 84156; 85025; 85999; 86036; 86160; 86334

== ENCOUNTER 2024-06-09 16:04 | Outpatient (AMB) | payer MEDICARE, OTHER, SELFPAY ==
--- NOTE | 2024-06-09 16:04 | HO.NEPHOV_ITS ---
Vital Signs 06/09/24 16:05 Height 5 ft 1 in Weight 173 lb BMI 32.7 BP 120/76 Blood Pressure Location Lt brachial Position Sitting Pulse 72 Pulse Source Pulse Oximeter Pulse Oximetry (%) 98 Oxygen Delivery Method Room Air Intake Visit Reasons: 2-3 wks follow up/LVM Admission Nurse Coordinator Required: No Accompanied by: Self / Same As Patient Allergies hydroxychloroquine [Plaquenil] Allergy (Severe, Verified 06/09/24 16:07) Rash codeine [Codeine] Allergy (Intermediate, Verified 06/09/24 16:07) NAUSEA & VOMITING methotrexate Allergy (Intermediate, Verified 06/09/24 16:07) Diarrhea oxycodone Allergy (Intermediate, Verified 06/09/24 16:07) dizziness, nausea, vomiting tramadol Allergy (Intermediate, Verified 06/09/24 16:07) Diarrhea metronidazole Allergy (Unknown, Verified 06/09/24 16:07) Vomiting hydromorphone [From Dilaudid] Adverse Reaction (Verified 06/09/24 16:07) Vomiting Medication List - Last Reconciled 06/09/24 by Dexter Stewart MD acetaminophen ER 650 mg PO Q8H PRN allopurinol 100 mg PO DAILY atorvastatin 20 mg PO DAILY calcium citrate-vitamin D3 315 mg-6.25 mcg (250 unit) (Citracal + Vitamin D Maximum) 1 tab PO DAILY furosemide 20 mg PO QAM leflunomide 10 mg PO DAILY metoprolol succinate ER 100 mg PO DAILY pantoprazole 40 mg PO DAILY vitamin B complex (B Complex-Vitamin B12 tablet) 1 tab PO DAILY [Vitamin D3 2,000 multiple units PO DAILY] HPI Comments Details: . Karol is a pleasant 68-year-old woman with a history of has been normal renal function. About 2 months ago she underwent a shoulder surgery. She has been taking ibuprofen 800 mg a day. About 2 weeks ago she had abdominal discomfort followed by diarrhea and vomiting. She was treated with ciprofloxacin and metronidazole. Two weeks ago she underwent blood work which should serum creatinine of 2.67 mg with a BUN of 66. Per potassium was 3.1. She was referred to days ago for evaluation of JÚNIOR. Of note she has had a rash in her right leg which has been itchy and she was treated with antibiotics. She has no history of gross hematuria no polyuria polydipsia. No cough no expectoration no hemoptysis. No shortness of breath no chest pain At present she has no diarrhea. 02/18/2024;c/o Icthing;Overall feeling better than previous visit 05/26/24;c/o swelling in right leg;No dyspnea 06/09/24 Still with leg edema and skin rash [facility] Medical History (Updated 02/13/24 @ 12:21 by Dexter Stewart MD) IBS (irritable bowel syndrome) History of cellulitis Elevated cholesterol HTN (hypertension) PONV (postoperative nausea and vomiting) Colon cancer screening Eczema DVT (deep venous thrombosis) Diarrhea Cough Primary osteoarthritis, right hand Primary osteoarthritis, left hand Gout Polymyositis Surgical History Hx of shoulder surgery (11/22/23) History of back surgery (~2019) Hx of endoscopy H/O colonoscopy Social History Are you a primary skin care technician to a significant other at home: No Do you presently have visiting nurse or other home services: No Alcohol intake: never Patient Tobacco Use Status: Never used Tobacco e-Cigarette/Vaping Use: Never Used Current occupational status: retired and disabled 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 Physical Exam Vital Signs: Last Vital Signs Pulse 72 06/09/24 16:05 BP 120/76 06/09/24 16:05 Pulse Ox 98 06/09/24 16:05 Oxygen Delivery Method Room Air 06/09/24 16:05 BMI result Body Mass Index 32.7 Const General: comfortable Nutritional Appearance: well nourished Orientation/consciousness: patient oriented x3 HEENT Head: No normal to inspection Mouth: moist mucous membranes Neck Neck: Yes supple and Yes no JVD Resp Auscultation: clear to auscultation bilaterally and no rales Cardio Jugular venous distension: no JVD Palpation: no palpable S3 and no palpable S4 Heart sounds: no rubs GI Palpation (GI): Soft to palpation and nontender Percussion: No Fluid wave present General: Yes no CVA tenderness Back/Spine/Pelvis Back: no CVA tenderness Skin General skin exam: Excoriation Rashes: rashes noted (Both lower extremity) Neuro General: patient oriented x3 Extrem General: No clubbing Results Reviewed Nephrology Results: Hgb 10.6 g/dl (12.0-16.0) L 06/02/24 WBC 5.8 X10*3/uL (4.8-10.8) 06/02/24 Plt Count 274 X10*3/uL (160-400) 06/02/24 Sodium 145 mmol/L (135-145) 06/02/24 Potassium 3.3 mmol/L (3.3-5.1) 06/02/24 Chloride 106 mmol/L (96-108) 06/02/24 Carbon Dioxide 31 mmol/L (22-29) H 06/02/24 BUN 14 mg/dL (9-16) 06/02/24 Creatinine 0.84 mg/dL (0.5-1.4) 06/02/24 Calcium 8.3 mg/dL (8.4-10.2) L 06/02/24 Urine Protein Negative mg/dL (Neg-Trace) 06/02/24 Urine Creatinine 17.11 mg/dL 06/02/24 Renal US 02/20/24 Assessment & Plan Assessment & Plan (1) JÚNIOR (acute kidney injury): Code(s): N17.9 - Acute kidney failure, unspecified Category: Medical (2) Edema: Code(s): R60.9 - Edema, unspecified Category: Medical Plan . 68 woman with JÚNIOR. hypoperfusion from volume depletion secondary to diarrhea and continued intake of NSAIDs. Glomerular nephritis or interstitial disease seem unlikely based on the bland urine sediments and negative serology. With the new skin rash vasculitis was considered. But serologies have been negative. ANCA reordered and negative Obstructive uropathy seems unlikely based on the clinical picture. Serum creatinine is improved and back to baseline Continue to avoid NSAIDs. Increase p.o. fluid intake. She has anemia HCT improving Iron adequate SPEP noted- Immunefixation - shows mild IgG monoclonal band - ? significance LEg edema - improving doppler No DVT Superficial thromboplebitis DEcrease LAsix 20 mg QD Coding Level of Care Code Est Pt Level 4 (16167) Diagnoses JÚNIOR (acute kidney injury) N17.9 Edema R60.9
[2024-06-09 16:05] VITALS: BP 120/76; PULSE 72; O2SAT 98; BMI 32.7
== END 2024-06-09 16:28 | disposition home or self-care (01) ==
PROVIDERS: PCP Internal Medicine; Visit Provider Internal Medicine Hypertension Specialist
DX: N17.9 Acute kidney failure, unspecified (principal); R60.9 Edema, unspecified
CPT/HCPCS: 99214

== ENCOUNTER → 2024-06-09 16:04 | Outpatient (BNVA) | payer MEDICARE, OTHER, SELFPAY | PROVIDERS: PCP Internal Medicine; Visit Provider Internal Medicine Hypertension Specialist | DX: N17.9 Acute kidney failure, unspecified (principal); R60.9 Edema, unspecified | CPT/HCPCS: 99212 ==

== ENCOUNTER 2024-06-11 16:11 | Outpatient (REF) | payer MEDICARE, OTHER, SELFPAY ==
[2024-06-11 17:54] LABS: C Reactive Protein 4.77 mg/dL (< or = 0.50); Iron 29 mcg/dL (30-160); Percent Iron Saturation 17 % (15-50); Total Iron Binding Capacity 172 mcg/dL (228-428); Unsaturated Iron Binding 143 ug/dL
[2024-06-11 17:55] LABS: Erythrocyte Sedimentation Rate 89 MM/HR (0-20)
[2024-06-11 18:17] LABS: Vitamin B12 807 pg/mL (200-900)
== END 2024-06-11 16:12 | disposition home or self-care (01) ==
LOC: HO.LAB 16:11
PROVIDERS: PCP Internal Medicine; Visit Provider Internal Medicine
DX: I87.8 Other specified disorders of veins (principal); R60.9 Edema, unspecified; D64.9 Anemia, unspecified
CPT/HCPCS: 36415; 82550; 82607; 83540; 85652; 86140

== ENCOUNTER 2024-07-02 14:46 | Outpatient (AMB) | payer MEDICARE, OTHER, SELFPAY ==
[2024-07-02 14:55] VITALS: BMI 32.7
--- NOTE | 2024-07-02 14:55 | A.OFFVIS_ITS ---
Vital Signs 07/02/24 14:55 Height 5 ft 1 in Weight 173 lb BMI 32.7 Intake Visit Reasons: BAR STAFF/ referral for phlebitis Intake Note: BAR STAFF/ referral for bilateral LE cellulitis, phlebitis, LE swelling and re- occuring infections for over 1 year. Has some non-healing wounds on bilateral LE. Pt also complains of urinary issues. Accompanied by: Self / Same As Patient Allergies hydroxychloroquine [Plaquenil] Allergy (Severe, Verified 07/02/24 15:03) Rash codeine [Codeine] Allergy (Intermediate, Verified 07/02/24 15:03) NAUSEA & VOMITING methotrexate Allergy (Intermediate, Verified 07/02/24 15:03) Diarrhea oxycodone Allergy (Intermediate, Verified 07/02/24 15:03) dizziness, nausea, vomiting tramadol Allergy (Intermediate, Verified 07/02/24 15:03) Diarrhea metronidazole Allergy (Unknown, Verified 07/02/24 15:03) Vomiting hydromorphone [From Dilaudid] Adverse Reaction (Verified 07/02/24 15:03) Vomiting HPI HPI BAR STAFF/ referral for phlebitis: Details: Karol is presenting as an urgent referral for ongoing bilateral lower extremity swelling, cellulitis, and wounds, worsening. She states that over the last year she has had 6-7 times where she has been having periods of increased swelling of her legs with ulcers and wounds with fevers. She has been on multiple different abx. She has been r/o for DVT. She does have a remote hx of DVT >10y; she was placed on Coumadin, but no longer takes it. She states her legs are itchy all of the time. She has intermittent pain. She states the swelling has not gone down at all. She states the wounds have been healing, but slowly. She states she continues with discoloration as well. She has been very frustrated with the ongoing issues. She does have RA which she is on Leflunomide for. She is a non smoker and non-diabetic. 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 She has tried compression stockings; however, due to her RA it is difficult to put them on and she states her cannot help. She does elevate her legs when she can. She also walks as much as she can. PFSH Medical History IBS (irritable bowel syndrome) History of cellulitis Elevated cholesterol HTN (hypertension) PONV (postoperative nausea and vomiting) Colon cancer screening Eczema DVT (deep venous thrombosis) Diarrhea Cough Primary osteoarthritis, right hand Primary osteoarthritis, left hand Gout Polymyositis Surgical History Hx of shoulder surgery (11/22/23) History of back surgery (~2019) Hx of endoscopy H/O colonoscopy Social History Are you a primary coronary care unit nurse to a significant other at home: No Do you presently have visiting nurse or other home services: No Alcohol intake: never Patient Tobacco Use Status: Never used Tobacco e-Cigarette/Vaping Use: Never Used Current occupational status: retired and disabled 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 Review of Systems Const Reports as per HPI and Denies weakness ENT Reports Normal hearing present and Denies dizziness Card Reports as per HPI, Denies chest pain, Denies chest pain at rest, Denies chest pain with activity, Denies dyspnea and Denies dyspnea on exertion Resp Reports as per HPI, Denies cough, Denies dyspnea and Denies dyspnea on exertion GI Reports as per HPI, Denies abdominal pain, Denies nausea and Denies vomiting Musc Denies numbness Skin/Breast Reports as per HPI Neuro Reports Normal hearing present, Denies dizziness, Denies numbness, Denies Sensory deficit (Neuro) and Denies weakness Psych Reports no additional complaints Endo Reports no additional complaints Physical Exam Vital Signs: BMI result Body Mass Index 32.7 Const General: healthy appearing and no acute distress Orientation/consciousness: patient oriented x3 HEENT Head: Yes normal to inspection Ears: hearing grossly normal bilaterally Mouth: Normal oral and palatal mucosa present Resp Effort & Inspection: normal respiratory effort and able to speak in complete sentences Auscultation: clear to auscultation bilaterally Cardio Jugular venous distension: no JVD Rate: regular rate Rhythm: regular rhythm Heart sounds: S1 normal heart sound present and S2 normal heart sound present Bruits: no abdominal aortic bruits, no carotid bruits, no femoral bruits and no renal bruits Peripheral pulses: Peripheral pulses 2+ throughout GI Inspection: Yes normal to inspection Palpation (GI): No Abdominal aortic bruit present Skin Other: Bilateral lower extremities: Discoloration noted up to the knees. Multiple spider veins noted bilateral feet. Strong and palpable DP pulses. Right lower extremity: Discoloration noted up and above the knee. Several open ulcers noted behind the knee as well as on the lateral aspect of the lower extremity near the tibial tuberosity. CEAP: C - 6 E - primary A - superficial P - reflux General skin exam: no rashes or lesions noted Hair: normal Neuro General: patient oriented x3 Cranial nerves: Yes Normal hearing present Cognition (Neuro): normal cognition Gait exam (Neuro): Normal gait present Motor exam (neuro): 5/5 motor strength present throughout Sensory Exam: No Sensory deficit (Neuro) Extrem General: Yes normal to inspection, Yes full ROM, Yes capillary refill normal and Yes normal gait Assessment & Plan Assessment & Plan (1) Varicose veins of both lower extremities with inflammation: Code(s): I83.11 - Varicose veins of right lower extremity with inflammation; I83.12 - Varicose veins of left lower extremity with inflammation Category: Medical Plan: Karol is presenting today as a urgent referral from Dr. Gottlieb for ongoing wounds, swelling, and pain to bilateral lower extremities. Currently, she states that her right leg is a little worse due to the wounds. She states the wounds are healing however. In short, the patient has evidence of venous insufficiency. I have discussed the pathophysiology with the patient. In addition I have provided informational material regarding venous disease to the patient. We have discussed conservative measures including compression, elevation, and exercise. I have also provided a handout regarding appropriate use of compression stockings and where to purchase good compression stockings as well. I have taken the liberty of ordering venous insufficiency testing with the patient. They will follow up with me after testing. We discussed that if it is a venous issue, there are several interventions we can performed. It is not venous in nature, we would be looking at a lymphedema diagnosis and treatment plan. The patient had an opportunity to ask questions regarding the treatment plan. All questions were answered. No major barriers to understanding were identified. The patient expressed understanding and agreement with the above treatment plan. The patient is aware they should contact our office by phone for worsening of the current condition or the appearance of new symptoms. Thank you for allowing me to participate in the vascular care of this patient. If you have any questions or concerns regarding the treatment for the above condition please do not hesitate to contact me. The office telephone contact is [phone]. This note is constructed using voice recognition software. While every eff ort has been made to ensure accuracy, corner cutter machine operator errors may have been included. Thank you for allowing me to participate in the care of your patient. Yours sincerely, CARIDAD Heredia Orders: Orders US venous duplex LE BI 1 Week I83.11 - Varicose veins of right lower extremity with inflammation, I83.12 - Varicose veins of left lower extremity with inflammation Coding Level of Care Code New Pt New Pt Level 4 (95672) Patient Type New Diagnoses Varicose veins of both lower extremities with inflammation I83.11; I83.12
== END 2024-07-02 16:25 | disposition home or self-care (01) ==
PROVIDERS: PCP Internal Medicine; Visit Provider Physician Assistant Surgical
DX: I83.11 Varicose veins of right lower extremity with inflammation (principal); I83.12 Varicose veins of left lower extremity with inflammation
CPT/HCPCS: 99204

== ENCOUNTER → 2024-07-02 14:46 | Outpatient (BNVA) | payer MEDICARE, OTHER, SELFPAY | PROVIDERS: PCP Internal Medicine; Visit Provider Physician Assistant Surgical | DX: I83.218 Varicose veins of right lower extremity with both ulcer of other part of lower extremity and inflammation (principal); I83.12 Varicose veins of left lower extremity with inflammation; L97.819 Non-pressure chronic ulcer of other part of right lower leg with unspecified severity; L03.116 Cellulitis of left lower limb; L03.115 Cellulitis of right lower limb | CPT/HCPCS: 99202 ==

== ENCOUNTER 2024-07-09 10:29 | Outpatient (REF) | payer MEDICARE, OTHER, SELFPAY ==
--- NOTE | ~2024-07-09 | US_ITS ---
EXAMINATION: US LOWER EXTREMITY VENOUS (REFLUX EXAM), BILATERAL CLINICAL INDICATION: Chronic venous insufficiency with lower extremity varicose veins and thrombophlebitis COMPARISON: 05/26/2024 TECHNIQUE: Color flow triplex imaging and compression Doppler was performed to evaluate both the deep and the superficial systems bilaterally. To evaluate the superficial system, the examination was performed in the upright position. Color-flow Doppler ultrasound and compression ultrasound were utilized. In addition, maneuvers were utilized to demonstrate reflux. FINDINGS: 1. DEEP VENOUS ULTRASOUND OF THE RIGHT LOWER EXTREMITY: Common Femoral Vein: Compressible, normal respiratory variation and augmented flow. Femoral Vein: Compressible, normal color flow and augmentation. Popliteal Vein: Compressible, normal augmentation. Deep Reflux: There is no evidence of reflux in the deep system in either the common femoral vein, superficial femoral or the popliteal vein. There is no evidence of a Velasquez's cyst. 2. SUPERFICIAL ULTRASOUND WITH DOPPLER OF RIGHT LOWER EXTREMITY: GREAT SAPHENOUS VEIN: Saphenofemoral Junction: 1.2 cm; Reflux: 1876 ms Proximal Thigh: 1.1 cm; chronic thrombus with recanalized flow Reflux: 1060 ms Mid Thigh: 0.8 cm; chronic thrombus with recanalized flow Reflux: 2124 ms Above Knee: 0.5 cm; Reflux: 1732 ms At Knee: 0.8 cm; chronic thrombus with recanalized flow Reflux: 1668 ms Below Knee: 0.7 cm; thrombus with partial compressibility Reflux: 1308 ms Mid Calf: 0.6 cm; thrombus with partial compressibility Reflux: 740 ms Ankle: 0.3 cm; Reflux: 1112 ms DUPLICATED MEDIAL GREAT SAPHENOUS VEIN: Diameter: None imaged Reflux: NA DUPLICATED LATERAL GREAT SAPHENOUS VEIN: Diameter: None imaged Reflux: NA SMALL SAPHENOUS VEIN: Saphenopopliteal Junction: 0.2 cm; Reflux: 1016 ms Mid: 0.4 cm; chronic synechiae Reflux: 836 ms Distal: 0.3 cm; Reflux: 1120 ms VEIN OF GIACOMINI: Size: NA Reflux: NA PERFORATORS: Location: Proximal, mid and distal calf Size: 0.3 to 0.4 cm Reflux: Ranging from 712 ms to 1440 ms VARICOSITIES: Location: Proximal and distal thigh with thrombus Size: 1.0 cm Reflux: Ranging from 1316 ms to 2044 ms VARICOSITIES: Location: Proximal calf Size: 0.3 to 0.5 cm Reflux: Ranging from 628 ms to 884 ms 3. DEEP VENOUS ULTRASOUND OF THE LEFT LOWER EXTREMITY: Common Femoral Vein: Compressible, normal respiratory variation and augmented flow. Femoral Vein: Compressible, normal color flow and augmentation. Popliteal Vein: Compressible, normal augmentation. Deep Reflux: There is no evidence of reflux in the deep system in either the common femoral vein, superficial femoral or the popliteal vein. There is no evidence of a Velasquez's cyst. Note is made of a cystic collection which could represent fluid in the inguinal hernia at the level of the left hip 4. SUPERFICIAL ULTRASOUND WITH DOPPLER OF LEFT LOWER EXTREMITY: GREAT SAPHENOUS VEIN: Saphenofemoral Junction: 1.0 cm; Reflux: 0 ms Proximal Thigh: 1.3 cm; Reflux: 1764 ms Mid Thigh: 0.8 cm; Reflux: 2452 ms Above Knee: 0.9 cm; Reflux: 1900 ms At Knee: 0.4 cm; Reflux: 0 ms Below Knee: 0.4 cm; Reflux: 0 ms Mid Calf: 0.4 cm; Reflux: 2076 ms Ankle: 0.4 cm; Reflux: 0 ms DUPLICATED MEDIAL GREAT SAPHENOUS VEIN: Diameter: None imaged Reflux: NA DUPLICATED LATERAL GREAT SAPHENOUS VEIN: Diameter: None imaged Reflux: NA SMALL SAPHENOUS VEIN: Saphenopopliteal Junction: 0.3 cm; Reflux: 0 ms Proximal: 0.2 cm; Reflux: 0 ms Distal: 0.2 cm; Reflux: 0 ms VEIN OF GIACOMINI: Size: NA Reflux: NA PERFORATORS: Location: Mid calf Size: 0.6 cm Reflux: 2096 ms VARICOSITIES: Location: Mid thigh, knee, proximal calf and distal calf Size: Ranging from 0.3 to 0.8 cm Reflux: Ranging from 1820 ms to 2484 ms US/US venous duplex LE BI IMPRESSION: 1. 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 Dilated great saphenous vein with severe reflux. Multiple varicosities with thrombus as described above. 2. Left: Dilated great saphenous vein with severe reflux. Multiple varicosities with reflux as described above. 3. No evidence of deep venous thrombosis or deep venous insufficiency. Electronically signed by: Gigi Marti MD 07/22/2024 04:26 PM [facility]
== END 2024-07-09 10:30 | disposition home or self-care (01) ==
LOC: HO.US 10:29
PROVIDERS: PCP Internal Medicine; Visit Provider Physician Assistant Surgical
DX: I83.11 Varicose veins of right lower extremity with inflammation (principal); I83.12 Varicose veins of left lower extremity with inflammation
CPT/HCPCS: 93970

== ENCOUNTER 2024-07-16 14:49 | Outpatient (AMB) | payer MEDICARE, OTHER, SELFPAY ==
--- NOTE | 2024-07-16 14:58 | A.OFFVIS_ITS ---
Intake Visit Reasons: Follow Up 07/09 US Intake Note: Patient presents for follow up US performed on 07/09. Patient states her right knee keeps swelling. Has numbness in both feet. Accompanied by: Self / Same As Patient Allergies hydroxychloroquine [Plaquenil] Allergy (Severe, Verified 07/16/24 15:01) Rash codeine [Codeine] Allergy (Intermediate, Verified 07/16/24 15:01) NAUSEA & VOMITING methotrexate Allergy (Intermediate, Verified 07/16/24 15:01) Diarrhea oxycodone Allergy (Intermediate, Verified 07/16/24 15:01) dizziness, nausea, vomiting tramadol Allergy (Intermediate, Verified 07/16/24 15:01) Diarrhea metronidazole Allergy (Unknown, Verified 07/16/24 15:01) Vomiting hydromorphone [From Dilaudid] Adverse Reaction (Verified 07/16/24 15:) Vomiting HPI HPI Follow Up 07/09 US: Details: Karol is presenting today for follow-up to her ultrasound done on 07/09. She states she continues with bilateral lower extremity swelling as well as extreme pain upon palpation. She does continue to have ulcerations just below the right knee as well. She has noted her right knee has also been swelling more. 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 She has been trying to use her compression stockings. She does elevate her legs. FORMERLY [facility] Medical History IBS (irritable bowel syndrome) History of cellulitis Elevated cholesterol HTN (hypertension) PONV (postoperative nausea and vomiting) Colon cancer screening Eczema DVT (deep venous thrombosis) Diarrhea Cough Primary osteoarthritis, right hand Primary osteoarthritis, left hand Gout Polymyositis Surgical History Hx of shoulder surgery (11/22/23) History of back surgery (~2019) Hx of endoscopy H/O colonoscopy Social History Are you a primary certified social workers in health care to a significant other at home: No Do you presently have visiting nurse or other home services: No Alcohol intake: never Patient Tobacco Use Status: Never used Tobacco e-Cigarette/Vaping Use: Never Used Current occupational status: retired and disabled 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 Review of Systems Const Reports as per HPI and Denies weakness ENT Reports Normal hearing present and Denies dizziness Card Reports as per HPI, Denies chest pain, Denies chest pain at rest, Denies chest pain with activity, Denies dyspnea and Denies dyspnea on exertion Resp Reports as per HPI, Denies cough, Denies dyspnea and Denies dyspnea on exertion GI Reports as per HPI, Denies abdominal pain, Denies nausea and Denies vomiting Musc Denies numbness Skin/Breast Reports as per HPI, Denies erythema and Denies wounds Neuro Reports Normal hearing present, Denies dizziness, Denies numbness, Denies Sensory deficit (Neuro) and Denies weakness Psych Reports no additional complaints Endo Reports no additional complaints Physical Exam Const General: healthy appearing and no acute distress Orientation/consciousness: patient oriented x3 HEENT Head: Yes normal to inspection Ears: hearing grossly normal bilaterally Mouth: Normal oral and palatal mucosa present Resp Effort & Inspection: normal respiratory effort and able to speak in complete sentences Auscultation: clear to auscultation bilaterally Cardio Jugular venous distension: no JVD Rate: regular rate Rhythm: regular rhythm Heart sounds: S1 normal heart sound present and S2 normal heart sound present Bruits: no abdominal aortic bruits, no carotid bruits, no femoral bruits and no renal bruits Peripheral pulses: Peripheral pulses 2+ throughout GI Inspection: Yes normal to inspection Palpation (GI): No Abdominal aortic bruit present Skin General skin exam: no rashes or lesions noted Wounds: no wounds Hair: normal Neuro General: patient oriented x3 Cranial nerves: Yes Normal hearing present Cognition (Neuro): normal cognition Gait exam (Neuro): Normal gait present Motor exam (neuro): 5/5 motor strength present throughout Sensory Exam: No Sensory deficit (Neuro) Extrem Other: Bilateral lower extremities: 2+ nonpitting edema noted. Right lower extremity: Small ulcerations noted just below the right knee. Right knee is swollen. Choudhary is painful to palpation. Strong palpable DP pulses. Discoloration noted from above the knee to the toes. Multiple spider veins noted all through her feet and ankles. Left lower extremity: Skin is painful to palpation. Strong palpable DP pulses. Discoloration noted the tibial tuberosity area to the toes. Multiple spider veins noted throughout her feet and ankles. General: Yes normal to inspection, Yes full ROM, Yes capillary refill normal and Yes normal gait Results Reviewed Results Reviewed: USVI: Significant venous insufficiency in the right lower extremity with thrombophlebitis noted at multiple levels of the GSV. Many varicose veins noted through the right lower extremity Left lower extremity - venous insufficiency noted, not as significant as the right. Assessment & Plan Assessment & Plan (1) Varicose veins of both lower extremities with inflammation: Code(s): I83.11 - Varicose veins of right lower extremity with inflammation; I83.12 - Varicose veins of left lower extremity with inflammation Category: Medical Plan: Karol is presenting today for a follow-up to her ultrasound which was performed on 07/09. There was multiple areas of venous insufficiency noted, right more than left. There is also thrombophlebitis noted at multiple levels of the GSV on the right lower extremity. She continues to have ulceration on her right lower extremity just below her knee with overlying dry skin/psoriasis. She continues to have increased swelling bilaterally with a very tight feeling calves. She also continues discoloration from below the knees bilaterally to the ankles. This patient has varicose veins with inflammation. They continue to be a source of discomfort for the patient. The patient has tried conservative treatment with compression, leg elevation and exercise program for over 3 months time. They have been compliant with all treatment. This has provided minimal relief for the patient. I do not anticipate this course of treatment will alter the underlying etiology. The patient has been scheduled for lower extremity venous treatment inclusive of RFA of the right GSV. Risks, benefits, and complications of this procedure has been discussed in detail with the patient including but not limited to bleeding, infection, and the development of a DVT. The patient has demonstrated a clear understanding and has consented. We will schedule the patient as soon as possible. Thank you for allowing us to participate in this patient's care. If there are any questions or concerns ple ase do not hesitate to contact us. Coding Level of Care Code Established Pt Est Pt Level 4 (61233) Patient Type Established Diagnoses Varicose veins of both lower extremities with inflammation I83.11; I83.12 Comment Review of the ultrasound as well as discussion of treatment plan
== END 2024-07-16 15:30 ==
LOC: HO.HVS 14:50
PROVIDERS: PCP Internal Medicine; Visit Provider Physician Assistant Surgical
DX: I83.11 Varicose veins of right lower extremity with inflammation (principal); I83.12 Varicose veins of left lower extremity with inflammation
CPT/HCPCS: 99214

== ENCOUNTER → 2024-07-16 14:49 | Outpatient (BNVA) | payer MEDICARE, OTHER, SELFPAY | PROVIDERS: PCP Internal Medicine; Visit Provider Physician Assistant Surgical | DX: I83.11 Varicose veins of right lower extremity with inflammation (principal); I83.12 Varicose veins of left lower extremity with inflammation | CPT/HCPCS: 99212 ==

== ENCOUNTER 2024-09-18 09:23 | Outpatient (AMB) | payer MEDICARE, OTHER, SELFPAY ==
--- NOTE | 2024-09-18 09:33 | MHC.OFFVIS ---
Intake Visit Reasons: Right RFA Accompanied by: Self / Same As Patient Allergies hydroxychloroquine [Plaquenil] Allergy (Severe, Verified 09/18/24 09:33) Rash codeine [Codeine] Allergy (Intermediate, Verified 09/18/24 09:33) NAUSEA & VOMITING methotrexate Allergy (Intermediate, Verified 09/18/24 09:33) Diarrhea oxycodone Allergy (Intermediate, Verified 09/18/24 09:33) dizziness, nausea, vomiting tramadol Allergy (Intermediate, Verified 09/18/24:33) Diarrhea metronidazole Allergy (Unknown, Verified 09/18/24:33) Vomiting hydromorphone [From Dilaudid] Adverse Reaction (Verified 09/18/24:33) Vomiting PFSH Medical History IBS (irritable bowel syndrome) History of cellulitis Elevated cholesterol HTN (hypertension) PONV (postoperative nausea and vomiting) Colon cancer screening Eczema DVT (deep venous thrombosis) Diarrhea Cough Primary osteoarthritis, right hand Primary osteoarthritis, left hand Gout Polymyositis Surgical History Hx of shoulder surgery (11/22/23) History of back surgery (~2019) Hx of endoscopy H/O colonoscopy Social History Are you a primary critical care transport nurse to a significant other at home: No Do you presently have visiting nurse or other home services: No Alcohol intake: never Patient Tobacco Use Status: Never used Tobacco e-Cigarette/Vaping Use: Never Used Current occupational status: retired and disabled 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 Bearing Ring Assembler: Lynsey MCLEAN Estimated Blood Loss: Minimal The patient was transferred to the procedure suite and the insufficient saphenous vein was mapped by ultrasound and diagrammed on the overlying skin. The depth and diameter of the vein(s) to be treated was documented. The varicose tributary veins and suitable access sites were identified and mapped as well. The patient was then positioned supine on the procedure table. The affected limb was prepped and draped in the usual sterile fashion. The RF catheter was placed on the sterile field, flushed and wiped down, prepared, and connected by a sterile cable. The patient was placed in a supine position and local anesthesia was instilled in the skin overlying the access site. A skin incision was made overlying the identified and mapped great saphenous vein entry site. The vein was accessed using ultrasound guidance and the Seldinger technique, a guide wire was introduced through the needle, which was then exchanged over the guide wire for a 6F sheath, which was secured in place. The guide wire was removed and the sheath was flushed. The RF catheter was placed into the vein through the sheath and preferentially, imaging was used to place the catheter tip just inferior to the superficial epigastric vein to preserve normal physiological flow in that vein. Additionally, it was confirmed by ultrasound guidance that the catheter tip was also placed a minimum of 1.5cm distal to the saphenofemoral junction. After the RF catheter position was verified by ultrasound, tumescent anesthesia was infiltrated, under ultrasound guidance, precisely into the perivenous compartment along the entire length of vein from the entry site to the saphenofemoral junction until a halo of fluid was noted around the vein. The patient was appropriately position. After RF catheter position was again confirmed with ultrasound imaging, and under direct external compression along the length of the heating element, RF energy was applied. The vein was segmentally ablated by heating a 10 cm segment and then indexing the catheter forward by 9.5 cm until the treatment length is completed. Device temperature was maintained at 120 plus or minus 5 degrees C with an initial power level of 4W/cm dropping to below 2W/cm for each treatment. Total vein length treated 30 cm Total cycles of RF 4. Repeat ultrasound of the saphenous vein was performed, confirming successful treatment. The catheter and sheath were withdrawn and hemostasis established with direct pressure. After assuring hemostasis, the skin incision over the saphenous vein was closed with a steristip and a compression wrap was applied from the level of the foot to the most proximal level of the thigh. Discharge instructions were given to the patient inclusive of follow-up ultrasound and recommended follow-up with us. 09919 - Endovenous RF, 1st Vein All charges added?: Procedure code (CPT) selection complete Assessment & Plan Assessment & Plan (1) Varicose veins of right lower extremity with inflammation: Comment: 09/18/2024 - right great saphenous vein radiofrequency ablation Code(s): I83.11 - Varicose veins of right lower extremity with inflammation Category: Medical Plan: See op note Coding Level of Care Code Procedure Only Diagnoses Varicose veins of right lower extremity with inflammation I83.11 CPT Codes Details - Vascular 1: 87135 - Endovenous RF, 1st Vein ([id number])
== END 2024-09-18 11:53 | disposition home or self-care (01) ==
PROVIDERS: PCP Internal Medicine; Visit Provider Surgery Vascular Surgery
DX: I83.11 Varicose veins of right lower extremity with inflammation (principal)
CPT/HCPCS: 36475

== ENCOUNTER → 2024-09-18 09:23 | Outpatient (BNVA) | payer MEDICARE, OTHER, SELFPAY | PROVIDERS: PCP Internal Medicine; Visit Provider Surgery Vascular Surgery | DX: I83.11 Varicose veins of right lower extremity with inflammation (principal) | CPT/HCPCS: 36475; J2003; J2004 ==

== ENCOUNTER 2024-10-01 14:50 | Outpatient (AMB) | payer MEDICARE, OTHER, SELFPAY ==
--- NOTE | 2024-10-01 14:59 | MHC.OFFVIS ---
Intake Visit Reasons: 2 week follow up right rfa Intake Note: Patient presents for two week follow up right rfa. No complaints Accompanied by: Self / Same As Patient Allergies hydroxychloroquine [Plaquenil] Allergy (Severe, Verified 10/01/24 15:00) Rash codeine [Codeine] Allergy (Intermediate, Verified 10/01/24 15:00) NAUSEA & VOMITING methotrexate Allergy (Intermediate, Verified 10/01/24 15:00) Diarrhea oxycodone Allergy (Intermediate, Verified 10/01/24 15:00) dizziness, nausea, vomiting tramadol Allergy (Intermediate, Verified 10/01/24 15:00) Diarrhea metronidazole Allergy (Unknown, Verified 10/01/24 15:00) Vomiting hydromorphone [From Dilaudid] Adverse Reaction (Verified 10/01/24 15:00) Vomiting HPI HPI 2 week follow up right rfa: Details: Very pleasant 69-year-old female presents for follow-up status post right great saphenous vein ablation. Reports her legs feel great after the procedure. Overall swelling and discomfort have decreased. She continues to have discomfort on the left lower extremity. In addition she does have an element of skin irritation more so in the calf and thighs. She now presents for routine follow-up. FORMERLY [facility], [facility] Medical History IBS (irritable bowel syndrome) History of cellulitis Elevated cholesterol HTN (hypertension) PONV (postoperative nausea and vomiting) Colon cancer screening Eczema DVT (deep venous thrombosis) Diarrhea Cough Primary osteoarthritis, right hand Primary osteoarthritis, left hand Gout Polymyositis Surgical History Hx of shoulder surgery (11/22/23) History of back surgery (~2019) Hx of endoscopy H/O colonoscopy Social History Are you a primary specialist wound care to a significant other at home: No Do you presently have visiting nurse or other home services: No Alcohol intake: never Patient Tobacco Use Status: Never used Tobacco e-Cigarette/Vaping Use: Never Used Current occupational status: retired and disabled 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 Review of Systems Const Reports as per HPI ENT Reports no additional complaints Card Denies chest pain, Denies chest pain at rest and Denies chest pain with activity Resp Denies chest congestion and Denies cough GI Reports no additional complaints Musc Details: pain over varicosities, aching of lower extremities, swelling, cramping, heaviness and tiredness, itching Denies abnormal gait Skin/Breast Reports pruritus and Denies wounds Neuro Reports no additional complaints and Denies abnormal gait Psych Denies no additional complaints Physical Exam Const General: cooperative, healthy appearing and comfortable Orientation/consciousness: oriented to person, oriented to place and oriented to time Neck Carotids: no bruits Chest Chest palpation & inspection: normal inspection of the chest and normal palpation of entire chest wall Resp Effort & Inspection: normal respiratory effort and able to speak in complete sentences Cardio Rate: regular rate Heart sounds: S1 normal heart sound present and S2 normal heart sound present Peripheral pulses: Peripheral pulses 2+ throughout GI Inspection: Yes normal to inspection Skin Other: +2 edema, left greater than right. CEAP Classification C4 - skin color changes Ep - Etiology Primary As - superficial veins P - reflux Skin irritation throughout bilateral lower extremities more so on the below-knee pretibial surfaces. Excoriated areas concerning for psoriasis. General skin exam: dry skin Neuro General: oriented to person, oriented to place and oriented to time Extrem Right lower extremity: full ROM, normal capillary refill and edema Left lower extremity: full ROM, normal capillary refill and edema Psych Mental Status: mental status grossly normal Results Reviewed Results Reviewed: Brief summary of venous insufficiency testing is as follows: right great saphenous vein: Ablated right small saphenous vein: negative right accessory vein: none present left great saphenous vein: Positive left small saphenous vein: negative left accessory vein: none present Please note there is no evidence of any venous aneurysms or significant tortuosity Assessment & Plan Assessment & Plan (1) Varicose veins of right lower extremity with inflammation: Comment: 09/18/2024 - right great saphenous vein radiofrequency ablation Code(s): I83.11 - Varicose veins of right lower extremity with inflammation Category: Medical Plan: Did well from procedure (2) Varicose veins of left lower extremity with inflammation: Code(s): I83.12 - Varicose veins of left lower extremity with inflammation Category: Medical Plan: This patient has varicose veins with inflammation. They continue to be a source of discomfort for the patient. The patient has tried conservative treatment with compression, leg elevation and exercise program for over 3 months time. They have been compliant with all treatment. This has provided minimal relief for the patient. I do not anticipate this course of treatment will alter the underlying etiology. The patient has been scheduled for lower extremity venous treatment inclusive of --- left great saphenous vein radiofrequency ablation. Risks, benefits, and complications of this procedure has been discussed in detail with the patient including but not limited to bleeding, infection, and the development of a DVT. The patient has demonstrated a clear understanding and has consented. We will schedule the patient as soon as possible. Thank you for allowing us to participate in this patient's care. If there are any questions or concerns please do not hesitate to contact us. (3) Psoriasis: Code(s): L40.9 - Psoriasis, unspecified Category: Medical Plan: I have treated her venous disease. I do believe she has an element of psoriasis. It started on the right leg nearly a year ago in appears to be progressing she complains of on her chest as well. She does have a visit with her primary care tomorrow. I did discuss importance of getting it evaluated possibly evaluation by Dermatology as she has tried multiple [id number] treatments with no relief. Once again she will follow up with us for venous disease. Thank you for allowing us to assist in her care Coding Level of Care Code Est Pt Level 4 (86757) Diagnoses Varicose veins of right lower extremity with inflammation I83.11 Varicose veins of left lower extremity with inflammation I83.12 Psoriasis L40.9
== END 2024-10-01 15:18 | disposition home or self-care (01) ==
PROVIDERS: PCP Internal Medicine; Visit Provider Surgery Vascular Surgery
DX: I83.11 Varicose veins of right lower extremity with inflammation (principal); I83.12 Varicose veins of left lower extremity with inflammation; L40.9 Psoriasis, unspecified
CPT/HCPCS: 99214

== ENCOUNTER → 2024-10-01 14:50 | Outpatient (BNVA) | payer MEDICARE, OTHER, SELFPAY | PROVIDERS: PCP Internal Medicine; Visit Provider Surgery Vascular Surgery | DX: I83.11 Varicose veins of right lower extremity with inflammation (principal); I83.12 Varicose veins of left lower extremity with inflammation | CPT/HCPCS: 99212 ==

== ENCOUNTER 2024-12-16 10:25 | Outpatient (REF) | payer MEDICARE, OTHER, SELFPAY ==
[2024-12-16 10:43] LABS: MANUAL DIFF FLAG NO
[2024-12-16 11:26] LABS: Basophils Absolute Auto 0.1 X10*3/uL (0.0-0.2); Basophils Percent Auto 1.8 % (0-2); Eosinophils Absolute Auto 0.5 X10*3/uL (0.0-0.4); Eosinophils Percent Auto 8.9 % (0-4); Hemoglobin 11.4 g/dl (12.0-16.0); Imm Gran Abs Auto 0.01 X10*3/uL (0.00-0.03); Imm Gran Pct Auto 0.2 % (0.0-0.4); Lymphocytes Absolute Auto 1.6 X10*3/uL (1.2-4.9); Lymphocytes Percent Auto 28.4 % (20-40); Mean Corpuscular HGB Conc 32.6 g/dl (31.0-35.0); Mean Corpuscular Hemoglobin 31.2 pg (27.0-33.0); Mean Corpuscular Volume 95.9 fL (80.0-98.0); Mean Platelet Volume 9.7 fL (9.4-12.3); Monocytes Absolute Auto 0.8 X10*3/uL (0.1-1.2); Monocytes Percent Auto 13.8 % (2-11); Neutrophils Absolute Auto 2.6 x10*3/uL (2.0-8.3); Neutrophils Percent Auto 46.9 % (45-73); Platelet Count 233 X10*3/uL (160-400); Red Blood Count 3.65 X10*6/uL (4.20-5.50); Red Cell Distribution Width 14.6 % (11.0-16.0); White Blood Count 5.6 X10*3/uL (4.8-10.8)
[2024-12-16 11:45] LABS: Anion Gap 14 (12-20); Blood Urea Nitrogen 24 mg/dL (9-16); Calcium 9.6 mg/dL (8.4-10.2); Carbon Dioxide 27 mmol/L (22-29); Chloride 108 mmol/L (96-108); Estimated Glomerular Filt Rate > 60; Glucose Random 85 mg/dL (60-115); Potassium 3.7 mmol/L (3.3-5.1); Sodium 145 mmol/L (135-145)
--- OUTSIDE RECORDS SUMMARY | 2024-12-16 11:50 | XMS_ITS | Clinical Summary ---
Author Organization [facility] Facility Address [address] [place] [address] Care Team Providers Care Casting Tester Name Role Phone Deb Soliman MD Primary Care Provider [phone] Medications metoprolol tartrate (LOPRESSOR) 50 MG tablet Take 1 tablet (50 mg total) by mouth 2 (two) times a day 180 tablet 3 12/27/2020 Active furosemide (LASIX) 20 MG tablet TAKE 1/2 TABLET BY MOUTH ONCE A DAY 45 tablet 4 03/07/2022 Active Family History Medical History Relation Comments Heart disease Father Hypertension Father Relation Status Comments Father Mother Social History Tobacco Use Types Packs/Day Years Used Date Smoking Tobacco: Never Alcohol Use Standard Drinks/Week Comments Yes 0 (1 standard drink = 0.6 oz pure alcohol) Alcoholic Drinks/day: Occasional social drink Comments Unknown Sex and Gender Information Value Date Recorded Sex Assigned at Not on file Legal Sex Female 4:54 PM EST Gender Identity Not on file Sexual Orientation Not on file Last Filed Vital Signs Vital Sign Reading Time Taken Comments Blood Pressure 120/66 07/10/2019 12:00 PM EDT Pulse 64 07/10/2019 12:00 PM EDT Temperature - - Respiratory Rate - - Oxygen Saturation - - Inhaled Oxygen Concentration - - Weight 93.5 kg (206 lb 3.2 oz) 07/10/2019 12:00 PM EDT Height 154.9 cm (5' 1 ) 07/10/2019 12:00 PM EDT Body Mass Index 38.96 07/10/2019 12:00 PM EDT Plan of Treatment Health Maintenance Due Date Last Done Comments Breast Cancer Screening 1955 Pneumococcal Vaccine: 65+ Ye ars (1 of 2 - PCV) 1961 Colorectal Cancer Screening: Annual FOBT 2004 Colorectal Cancer Screening: Colonoscopy 2004 Colorectal Cancer Screening: Sigmoidoscopy 2004 Influenza Vaccine (Season Ended) 2025 Hepatitis B Vaccine Aged Out No longe r eligible based on patient's age to complete this topic Care Teams Casting Tester Relationship Specialty Start Date End Date Deb Soliman MD [address] [place] [address] [address] [place] [address] PCP - General 09/19/20
== END 2024-12-16 10:26 | disposition home or self-care (01) ==
LOC: HO.LAB 10:25
PROVIDERS: Visit Provider Internal Medicine Hypertension Specialist
DX: N17.9 Acute kidney failure, unspecified (principal)
CPT/HCPCS: 36415; 80048; 85025

== ENCOUNTER 2024-12-24 16:05 | Outpatient (AMB) | payer MEDICARE, OTHER, SELFPAY ==
--- NOTE | 2024-12-24 16:07 | HO.NEPHOV ---
Vital Signs 12/24/24 16:08 12/24/24 16:19 Height 5 ft 1 in Weight 169 lb 6 oz BMI 32.0 BP 162/80 H 140/70 H Blood Pressure Location Rt brachial Lt brachial Position Sitting Pulse 62 Pulse Source Pulse Oximeter Pulse Oximetry (%) 98 Oxygen Delivery Method Room Air Intake Visit Reasons: JÚNIOR/LVM Unhairing Inspector Required: No Accompanied by: Self / Same As Patient Allergies hydroxychloroquine [Plaquenil] Allergy (Severe, Verified 12/24/24 16:11) Rash codeine [Codeine] Allergy (Intermediate, Verified 12/24/24 16:11) NAUSEA & VOMITING methotrexate Allergy (Intermediate, Verified 12/24/24 16:11) Diarrhea oxycodone Allergy (Intermediate, Verified 12/24/24 16:11) dizziness, nausea, vomiting tramadol Allergy (Intermediate, Verified 12/24/24 16:11) Diarrhea metronidazole Allergy (Unknown, Verified 12/24/24 16:11) Vomiting hydromorphone [From Dilaudid] Adverse Reaction (Verified 12/24/24 16:11) Vomiting Medication List - Last Reconciled 12/24/24 by Dexter Stewart MD acetaminophen ER 650 mg PO Q8H PRN allopurinol 100 mg PO DAILY atorvastatin 20 mg PO DAILY calcium citrate-vitamin D3 315 mg-6.25 mcg (250 unit) (Citracal + Vitamin D Maximum) 1 tab PO DAILY furosemide 20 mg PO QAM leflunomide 10 mg PO DAILY metoprolol succinate ER 100 mg PO DAILY pantoprazole 40 mg PO DAILY vitamin B complex (B Complex-Vitamin B12 tablet) 1 tab PO DAILY [Vitamin D3 2,000 multiple units PO DAILY] Do you need a note to return to daycare/school/sports/work: No HPI Comments Details: . Karol is a pleasant 68-year-old woman with a history of has been normal renal function. About 2 months ago she underwent a shoulder surgery. She has been taking ibuprofen 800 mg a day. About 2 weeks ago she had abdominal discomfort followed by diarrhea and vomiting. She was treated with ciprofloxacin and metronidazole. Two weeks ago she underwent blood work which should serum creatinine of 2.67 mg with a BUN of 66. Per potassium was 3.1. She was referred to days ago for evaluation of JÚNIOR. Of note she has had a rash in her right leg which has been itchy and she was treated with antibiotics. She has no history of gross hematuria no polyuria polydipsia. No cough no expectoration no hemoptysis. No shortness of breath no chest pain At present she has no diarrhea. 02/18/2024;c/o Icthing;Overall feeling better than previous visit 05/26/24;c/o swelling in right leg;No dyspnea 06/09/24 Still with leg edema and skin rash [facility] Medical History IBS (irritable bowel syndrome) History of cellulitis Elevated cholesterol HTN (hypertension) PONV (postoperative nausea and vomiting) Colon cancer screening Eczema DVT (deep venous thrombosis) Diarrhea Cough Primary osteoarthritis, right hand Primary osteoarthritis, left hand Gout Polymyositis Surgical History Hx of shoulder surgery (11/22/23) History of back surgery (~2019) Hx of endoscopy H/O colonoscopy Social History Are you a primary healthcare administration intern to a significant other at home: No Do you presently have visiting nurse or other home services: No Alcohol intake: never Patient Tobacco Use Status: Never used Tobacco e-Cigarette/Vaping Use: Never Used Current occupational status: retired and disabled 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 Physical Exam Vital Signs: Last Vital Signs BP 162/80 H 12/24/24 16:08 BMI result Body Mass Index 32.0 Const General: comfortable Nutritional Appearance: well nourished Orientation/consciousness: patient oriented x3 HEENT Head: No normal to inspection Mouth: moist mucous membranes Neck Neck: Yes supple and Yes no JVD Resp Auscultation: clear to auscultation bilaterally and no rales Cardio Jugular venous distension: no JVD Palpation: no palpable S3 and no palpable S4 Heart sounds: no rubs GI Palpation (GI): Soft to palpation and nontender Percussion: No Fluid wave present General: Yes no CVA tenderness Back/Spine/Pelvis Back: no CVA tenderness Skin General skin exam: Excoriation Rashes: rashes noted (Both lower extremity) Neuro General: patient oriented x3 Extrem General: No clubbing Results Reviewed Nephrology Results: Hgb 11.4 g/dl (12.0-16.0) L 12/16/24 WBC 5.6 X10*3/uL (4.8-10.8) 12/16/24 Plt Count 233 X10*3/uL (160-400) 12/16/24 Sodium 145 mmol/L (135-145) 12/16/24 Potassium 3.7 mmol/L (3.3-5.1) 12/16/24 Chloride 108 mmol/L (96-108) 12/16/24 Carbon Dioxide 27 mmol/L (22-29) 12/16/24 BUN 24 mg/dL (9-16) H 12/16/24 Creatinine 0.89 mg/dL (0.5-1.4) 12/16/24 Calcium 9.6 mg/dL (8.4-10.2) 12/16/24 Assessment & Plan Assessment & Plan (1) JÚNIOR (acute kidney injury): Code(s): N17.9 - Acute kidney failure, unspecified Category: Medical (2) Edema: Code(s): R60.9 - Edema, unspecified Category: Medical Plan . 69 yr old woman with JÚNIOR. hypoperfusion from volume depletion secondary to diarrhea and continued intake of NSAIDs. Glomerular nephritis or interstitial disease seem unlikely based on the bland urine sediments and negative serology. With the new skin rash vasculitis was considered. But serologies have been negative. ANCA reordered and negative Obstructive uropathy seems unlikely based on the clinical picture. Serum creatinine is improved and back to baseline Continue to avoid NSAIDs. Increase p.o. fluid intake. She has anemia HCT improving Add FeSO4 325 mg PO daily SPEP noted- Immunefixation - shows mild IgG monoclonal band - ? significance Leg edema - improving ; doppler - No DVT Superficial thromboplebitis On Lasix 20 mg QD s/p Venous ablation for varicose veins Medications: New metoprolol succinate ER 100 mg PO DAILY 90 tabs 1RF furosemide 20 mg PO QAM 90 tabs 1RF Coding Level of Care Code Est Pt Level 4 (23281) Diagnoses JÚNIOR (acute kidney injury) N17.9 Edema R60.9
[2024-12-24 16:08] VITALS: BP 162/80; PULSE 62; O2SAT 98; BMI 32.0
[2024-12-24 16:19] VITALS: BP 140/70
--- OUTSIDE RECORDS SUMMARY | 2024-12-24 18:17 | XMS_ITS | Clinical Summary ---
Author Organization [facility] Facility Address [address] [place] [address] Care Team Providers Care Loss Prevention Associate Name Role Phone Deb Soliman MD Primary Care Provider [phone] Medications metoprolol tartrate (LOPRESSOR) 50 MG tablet [...] Comments Breast Cancer Screening 1955 Pneumococcal Vaccine: 50+ Ye ars (1 of 2 - PCV) 1974 Colorectal Cancer Screening: Annual FOBT 2004 Colorectal Cancer Screening: Colonoscopy 2004 Colorectal Cancer Screening: Sigmoidoscopy 2004 Influenza Vaccine (Season Ended) 2025 Hepatitis B Vaccine Aged Out No longe r eligible based on patient's age to complete this topic Care Teams Loss Prevention Associate Relationship Specialty Start Date End Date Deb Soliman MD [address] [place] [address] [address] [place] [address] PCP - General 09/19/20
== END 2024-12-24 16:27 | disposition home or self-care (01) ==
LOC: HO.HKA 16:06
PROVIDERS: PCP Internal Medicine; Visit Provider Internal Medicine Hypertension Specialist
DX: N17.9 Acute kidney failure, unspecified (principal); R60.9 Edema, unspecified
CPT/HCPCS: 99214

== ENCOUNTER → 2024-12-24 16:05 | Outpatient (BNVA) | payer MEDICARE, OTHER, SELFPAY | PROVIDERS: PCP Internal Medicine; Visit Provider Internal Medicine Hypertension Specialist | DX: N17.9 Acute kidney failure, unspecified (principal); R60.9 Edema, unspecified | CPT/HCPCS: 99212 ==

== ENCOUNTER 2024-12-25 08:22 | Outpatient (AMB) | payer MEDICARE, OTHER, SELFPAY ==
[2024-12-25 08:34] VITALS: BMI 31.9
--- NOTE | 2024-12-25 08:34 | A.OFFVIS_ITS ---
Vital Signs 12/25/24 08:34 Height 5 ft 1 in Weight 169 lb BMI 31.9 Intake Visit Reasons: Left RFA Television News Producer Required: No Accompanied by: Self / Same As Patient Allergies hydroxychloroquine [Plaquenil] Allergy (Severe, Verified 12/25/24 08:34) Rash codeine [Codeine] Allergy (Intermediate, Verified 12/25/24 08:34) NAUSEA & VOMITING methotrexate Allergy (Intermediate, Verified 12/25/24 08:34) Diarrhea oxycodone Allergy (Intermediate, Verified 12/25/24 08:34) dizziness, nausea, vomiting tramadol Allergy (Intermediate, Verified 12/25/24 08:34) Diarrhea metronidazole Allergy (Unknown, Verified 12/25/24 08:34) Vomiting hydromorphone [From Dilaudid] Adverse Reaction (Verified 12/25/24 08:34) Vomiting PFSH Medical History IBS (irritable bowel syndrome) History of cellulitis Elevated cholesterol HTN (hypertension) PONV (postoperative nausea and vomiting) Colon cancer screening Eczema DVT (deep venous thrombosis) Diarrhea Cough Primary osteoarthritis, right hand Primary osteoarthritis, left hand Gout Polymyositis Surgical History Hx of shoulder surgery (11/22/23) History of back surgery (~2019) Hx of endoscopy H/O colonoscopy Social History Are you a primary manager medicare to a significant other at home: No Do you presently have visiting nurse or other home services: No Alcohol intake: never Patient Tobacco Use Status: Never used Tobacco e-Cigarette/Vaping Use: Never Used Current occupational status: retired and disabled 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 Anesthesia: Local infiltration 5 cc, Tumescent 300 cc. Estimated Blood Loss: minimal Specimen: Varicose veins Surgeon: Dr. Basilio Glass Unloading Equipment Tender: Lynsey MCLEAN The patient was transferred to the procedure suite and the insufficient saphenous vein was mapped by ultrasound and diagrammed on the overlying skin. The depth and diameter of the vein(s) to be treated was documented. The varicose tributary veins and suitable access sites were identified and mapped as well. The patient was then positioned supine on the procedure table. The affected limb was prepped and draped in the usual sterile fashion. The RF catheter was placed on the sterile field, flushed and wiped down, prepared, and connected by a sterile cable. The patient was placed in supine position and local anesthesia was instilled in the skin overlying the access site. A skin incision was made overlying the identified and mapped great saphenous vein entry site. The vein was accessed using ultrasound guidance and the Seldinger technique, a guide wire was introduced through the needle, which was then exchanged over the guide wire for a 6F sheath, which was secured in place. The guide wire was removed and the sheath was flushed. The RF catheter was placed into the vein through the sheath and preferentially, imaging was used to place the catheter tip just inferior to the superficial epigastric vein to preserve normal physiological flow in that vein. Additionally, it was confirmed by ultrasound guidance that the catheter tip was also placed a minimum of 1.5cm distal to the saphenofemoral junction. After the RF catheter position was verified by ultrasound, tumescent anesthesia was infiltrated, under ultrasound guidance, precisely into the perivenous compartment along the entire length of vein from the entry site to the saphenofemoral junction until a halo of fluid was noted around the vein. The patient was then placed in supine position to further exsanguinate the superficial venous system. After RF catheter position was again confirmed with ultrasound imaging, and under direct external compression along the length of the heating element, RF energy was applied. The vein was segmentally ablated by heating a 8 cm segment and then indexing the catheter forward by 7.5 cm until the treatment length is completed. Device temperature was maintained at 120 plus or minus 5 degrees C with an initial power level of 40W dropping to below 20W for each treatment. Total vein length treated 32 cm Total cycles of RF 5. Repeat ultrasound of the saphenous vein was performed, confirming successful treatment. The catheter and sheath were withdrawn and hemostasis established with direct pressure. After assuring hemostasis, the skin incision over the saphenous vein was closed with a bandage and a compression wrap, and/ or graduated compression stocking was applied from the level of the foot to the m ost proximal level of the thigh. 88903 - Endovenous RF, 1st Vein All charges added?: Procedure code (CPT) selection complete Assessment & Plan Assessment & Plan (1) Varicose veins of left lower extremity with inflammation: Comment: 12/25/2024 - left great saphenous vein radiofrequency ablation Code(s): I83.12 - Varicose veins of left lower extremity with inflammation Category: Medical Plan: See op note Coding Level of Care Code Procedure Only Diagnoses Varicose veins of left lower extremity with inflammation I83.12 CPT Codes Details - Vascular 1: 59400 - Endovenous RF, 1st Vein ([id number])
--- OUTSIDE RECORDS SUMMARY | 2024-12-25 08:42 | XMS_ITS | Clinical Summary ---
Author Organization [facility] Facility Address [address] [place] [address] Care Team Providers Care Marine Firefighter Name Role Phone Deb Soliman MD Primary Care Provider [phone] Medications metoprolol tartrate (LOPRESSOR) 50 MG tablet [...] age to complete this topic Care Teams Marine Firefighter Relationship Specialty Start Date End Date Deb Soliman MD [address] [place] [address] [address] [place] [address] PCP - General 09/19/20
== END 2024-12-25 09:30 | disposition home or self-care (01) ==
LOC: HO.HVS 08:23
PROVIDERS: PCP Internal Medicine; Visit Provider Surgery Vascular Surgery
DX: I83.12 Varicose veins of left lower extremity with inflammation (principal)
CPT/HCPCS: 36475

== ENCOUNTER → 2024-12-25 08:22 | Outpatient (BNVA) | payer MEDICARE, OTHER, SELFPAY | PROVIDERS: PCP Internal Medicine; Visit Provider Surgery Vascular Surgery | DX: I83.12 Varicose veins of left lower extremity with inflammation (principal) | CPT/HCPCS: 36475; J2003; J2004 ==

== ENCOUNTER 2025-01-07 15:06 | Outpatient (AMB) | payer MEDICARE, OTHER, SELFPAY ==
[2025-01-07 15:12] VITALS: BMI 31.9
--- NOTE | 2025-01-07 15:12 | MHC.OFFVIS ---
Vital Signs 01/07/25 15:12 Height 5 ft 1 in Weight 169 lb BMI 31.9 Intake Visit Reasons: 2w follow up s/p Left RFA 12/25/24 Intake Note: 2 wk follow up Left RFA 12/25/24 & hx of Right GSV RFA 09/18/24. Pt states main complaint is the rash on her leg (eczema) is very bad, Right LE worse than Left LE. Pt states that she has tenderness and bruising over treated area. College Intern Required: No Accompanied by: Self / Same As Patient Allergies hydroxychloroquine [Plaquenil] Allergy (Severe, Verified 01/07/25 15:18) Rash codeine [Codeine] Allergy (Intermediate, Verified 01/07/25 15:18) NAUSEA & VOMITING methotrexate Allergy (Intermediate, Verified 01/07/25 15:18) Diarrhea oxycodone Allergy (Intermediate, Verified 01/07/25 15:18) dizziness, nausea, vomiting tramadol Allergy (Intermediate, Verified 01/07/25 15:18) Diarrhea metronidazole Allergy (Unknown, Verified 01/07/25 15:18) Vomiting hydromorphone [From Dilaudid] Adverse Reaction (Verified 01/07/25 15:18) Vomiting HPI HPI 2w follow up s/p Left RFA 12/25/24: Details: The patient is a 69-year-old female presenting for a follow-up after left great saphenous vein ablation and management of eczema. She previously underwent right great saphenous vein ablation in September 2024, followed by the left side in December 2024. The patient reports significant bruising on the left leg, which has since improved. The primary concern is persistent eczema, exacerbated by difficulties in treatment continuation following her physician's departure. Despite previous treatment with prednisone and topical agents, the eczema has recurred, being painful and dry. The patient has also lost a substantial amount of weight over the years, partly due to gastrointestinal issues. She does report improvement of both legs since the ablation is. Her bigger concern is the right lower extremity psoriasis. She does have continued swelling of the right lower extremity. [facility] Medical History IBS (irritable bowel syndrome) History of cellulitis Elevated cholesterol HTN (hypertension) PONV (postoperative nausea and vomiting) Colon cancer screening Eczema DVT (deep venous thrombosis) Diarrhea Cough Primary osteoarthritis, right hand Primary osteoarthritis, left hand Gout Polymyositis Surgical History Hx of shoulder surgery (11/22/23) History of back surgery (~2019) Hx of endoscopy H/O colonoscopy Social History Are you a primary neonatal intensive care nurse to a significant other at home: No Do you presently have visiting nurse or other home services: No Alcohol intake: never Patient Tobacco Use Status: Never used Tobacco e-Cigarette/Vaping Use: Never Used Current occupational status: retired and disabled 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 Review of Systems Const Reports as per HPI ENT Reports no additional complaints Card Denies chest pain, Denies chest pain at rest and Denies chest pain with activity Resp Denies chest congestion and Denies cough GI Reports no additional complaints Musc Details: pain over varicosities, aching of lower extremities, swelling, cramping, heaviness and tiredness, itching Denies abnormal gait Skin/Breast Reports pruritus and Denies wounds Neuro Reports no additional complaints and Denies abnormal gait Psych Denies no additional complaints Physical Exam Vital Signs: BMI result Body Mass Index 31.9 Const General: cooperative, healthy appearing and comfortable Orientation/consciousness: oriented to person, oriented to place and oriented to time Neck Carotids: no bruits Chest Chest palpation & inspection: normal inspection of the chest and normal palpation of entire chest wall Resp Effort & Inspection: normal respiratory effort and able to speak in complete sentences Cardio Rate: regular rate Heart sounds: S1 normal heart sound present and S2 normal heart sound present Peripheral pulses: Peripheral pulses 2+ throughout GI Inspection: Yes normal to inspection Skin Other: +2 edema, CEAP Classification C4 - skin color changes Ep - Etiology Primary As - superficial veins P - reflux General skin exam: dry skin Neuro General: oriented to person, oriented to place and oriented to time Extrem Other: Right calf psoriasis Right lower extremity: full ROM, normal capillary refill and edema Left lower extremity: full ROM, normal capillary refill and edema Psych Mental Status: mental status grossly normal Results Reviewed Results Reviewed: Brief summary of venous insufficiency testing is as follows: right great saphenous vein: Ablated right small saphenous vein: Positive right accessory vein: none present left great saphenous vein: Ablated left small saphenous vein: negative left accessory vein: none present Please note there is no evidence of any venous aneurysms or significant tortuosity Assessment & Plan Assessment & Plan (1) Varicose veins of left lower extremity with inflammation: Comment: 12/25/2024 - left great saphenous vein radiofrequency ablation Code(s): I83.12 - Varicose veins of left lower extremity with inflammation Category: Medical Plan: No further treatment required (2) Varicose veins of right lower extremity with inflammation: Comment: 09/18/2024 - right great saphenous vein radiofrequency ablation Code(s): I83.11 - Varicose veins of right lower extremity with inflammation Category: Medical Plan: She does have reflux in the right small saphenous vein. Due to the active psoriasis an open lesions will hold off on further intervention at the current time. I did recommend a six-month follow-up regarding this. (3) Psoriasis: Code(s): L40.9 - Psoriasis, unspecified Category: Medical Plan: The concern here is the right lower extremity psoriasis. This is clearly from an inflammatory condition as she does have inflammatory bowel disease as well. She had been placed on prednisone by her primary care physician in the past. Unfortunately he has gone on to retire is waiting follow-up with her new primary care physician. In the interim I have prescribed her a 2 week 10 mg dose prednisone as it is quite inflammatory right now. I hope that will help alleviate her symptoms. Once again this may require further workup from Rheumatology and/or dermatology. She will follow up with us in 6 months in terms of her venous disease. Thank you for allowing us to assist in her care. The patient had an opportunity to ask questions regarding the treatment plan. All questions were answered. Imaging studies, laboratory studies and physical exam results were discussed and reviewed in detail. No major barriers to understanding were identified. The patient expressed understanding and agreement with the above treatment plan. The patient is aware they should contact our office by phone for worsening of the current condition or the appearance of new symptoms. Thank you for allowing me to participate in the vascular care of this patient. If you have any questions or concerns regarding the treatment for the above condition please do not hesitate to contact me. The office telephone contact is [phone]. This note is constructed using voice recognition software. While every effort has been made to ensure accuracy, water treatment specialist errors may have been included. Thank you for allowing me to participate in the care of your patient. Yours sincerely, Delano Basilio MD, FACS, R.P.V.I. Plan Patient was informed and verbally consented to the use of an ambient scribe for clinic note documentation during this visit. Medications: New prednisone 10 mg PO DAILY 14 tabs 0RF L40.9 - Psoriasis, unspecified Patient Instructions: - Take the prescribed prednisone as instructed for eczema relief. - Avoid any new treatments for the veins until your skin conditions improve. - Follow up with primary care as scheduled in February. - Return for a follow-up visit in six months to reassess vein conditions. - Contact our office with any concerns or if symptoms worsen. Coding Level of Care Code Est Pt Level 4 (89259) Complex EM visit Add On G2211 Diagnoses Varicose veins of left lower extremity with inflammation I83.12 Varicose veins of right lower extremity with inflammation I83.11 Psoriasis L40.9
--- OUTSIDE RECORDS SUMMARY | 2025-01-07 16:59 | XMS_ITS | Clinical Summary ---
Author Organization [facility] Facility Address [address] [place] [address] Care Team Providers Care Diplomatic Courier Name Role Phone Deb Soliman MD Primary Care Provider [phone] Medications metoprolol tartrate (LOPRESSOR) 50 MG tablet [...] age to complete this topic Care Teams Diplomatic Courier Relationship Specialty Start Date End Date Deb Soliman MD [address] [place] [address] [address] [place] [address] PCP - General 09/19/20
== END 2025-01-07 16:21 | disposition home or self-care (01) ==
LOC: HO.HVS 15:07
PROVIDERS: PCP Internal Medicine; Visit Provider Surgery Vascular Surgery
DX: I83.12 Varicose veins of left lower extremity with inflammation (principal); I83.11 Varicose veins of right lower extremity with inflammation; L40.9 Psoriasis, unspecified
CPT/HCPCS: 99214; G2211

== ENCOUNTER → 2025-01-07 15:06 | Outpatient (BNVA) | payer MEDICARE, OTHER, SELFPAY | PROVIDERS: PCP Internal Medicine; Visit Provider Surgery Vascular Surgery | DX: I83.12 Varicose veins of left lower extremity with inflammation (principal); I83.11 Varicose veins of right lower extremity with inflammation; L40.9 Psoriasis, unspecified | CPT/HCPCS: 99212 ==

== ENCOUNTER 2025-01-18 01:29 | Emergency (ER) | payer MEDICARE, OTHER, SELFPAY ==
[2025-01-18] VITALS (9 sets, daily range): BP systolic 86–135; BP diastolic 54–66; PULSE 74–157; RESP 15–23; TEMP 36.5–37.3; O2SAT 91–99; BMI 32.7
--- NOTE | ~2025-01-18 | XR_ITS ---
CLINICAL HISTORY: SOB 1 view chest x-ray Comparison: None Findings: Pulmonary edema. No large effusion or pneumothorax. Normal size heart. No acute fracture. IMPRESSION: 1. Pulmonary edema. This document has been electronically signed by: Matt Huerta MD on 01/18/2025 03:21:33
--- NOTE | ~2025-01-18 | CT_ITS ---
CLINICAL HISTORY: sob elevated d dimer CT angiography chest with contrast. 3D Postprocessing. Comparison: None Findings: The heart is normal size. RV/LV ratio is normal. No definite PE on this partially motion limited exam. No thoracic aortic aneurysm. Enlarged pulmonary trunk. Query pulmonary arterial hypertension. The visualized thyroid and mediastinum are unremarkable. Small right more than left pleural effusions with neighboring atelectasis. Mild biapical increased interstitial lung markings suggestive of pulmonary edema. Ground-glass opacities predominantly in the apical portions of the upper lobes due to pulmonary edema +/-pneumonia. The visualized upper abdomen is unremarkable. No acute fractures. Right proximal humeral suture anchors. Multilevel ossification of the anterior longitudinal and supraspinous ligaments may be due to noninflammatory spondyloarthropathy or be degenerative in nature. Correlate clinically. IMPRESSION: 1. Small right more than left pleural effusions with neighboring atelectasis. 2. Mild biapical increased interstitial lung markings suggestive of pulmonary edema. Ground-glass opacities predominantly in the apical portions of the upper lobes due to pulmonary edema +/-pneumonia. 3. No definite PE on this partially motion limited exam. No thoracic aortic aneurysm. This document has been electronically signed by: Elizabeth Vieyra MD on 01/18/2025 06:24:58
--- NOTE | 2025-01-18 01:38 | ECG_ITS ---
Test Reason : CP Blood Pressure : */* mmHG Vent. Rate : 117 BPM Atrial Rate : 117 BPM P-R Int : 142 ms QRS Dur : 68 ms QT Int : 310 ms P-R-T Axes : 49 0 26 degrees QTcB Int : 432 ms Sinus tachycardia Septal infarct , age undetermined Abnormal ECG When compared with ECG of 30-Sep-2023 14:57, Vent. rate has increased by 48 bpm Septal infarct is now Present ST now depressed in Inferior leads ST elevation now present in Lateral leads Referred By: Generic ED Physician Electronically Signed By: NIKO DEY MD
--- NOTE | 2025-01-18 01:52 | ED_ITS ---
HPI - SOB/Dyspnea General Chief Complaint: Dyspnea Stated Complaint: sob Time Seen by Provider: 01/18/25 01:52 Source: patient Mode of arrival: ambulatory Limitations: no limitations History of Present Illness ED Provider: HPI Narrative: Patient's history of hypertension varicose vein lower extremity, DVT no known coronary artery disease comes here for acute onset of chills shortness of breath and chest tightness just started prior to arrival with dry cough and hard to breath no radiation of the chest pain to the jaw or no prior history of coronary artery disease patient has had a remote history of DVT about 5 years ago not taking any aspirin or any anticoagulation no history of asthma no significant increased leg swelling Related Data Home Medications ?Medication ?Instructions ?Recorded ?Confirmed acetaminophen 650 mg 650 mg PO Q8H PRN Pain 07/21/20 12/24/24 tablet,extended release atorvastatin 20 mg tablet 20 mg PO DAILY 07/21/20 12/24/24 calcium 315 mg (as 1 tab PO DAILY 07/21/20 12/24/24 citrate)-vitamin D3 6.25 mcg (250 unit) tablet (Citracal + Vitamin D Maximum) vitamin B complex (B 1 tab PO DAILY 07/21/20 12/24/24 Complex-Vitamin B12 tablet) allopurinol 100 mg tablet 100 mg PO DAILY 01/18/22 12/24/24 pantoprazole 40 mg tablet,delayed 40 mg PO DAILY 11/22/22 12/24/24 release Vitamin D3 2,000 units PO DAILY 09/30/23 12/24/24 loperamide 2 mg capsule (Imodium 2 mg PO QID PRN 01/07/25 A-D) multivitamin with iron (Daily 1 tab PO DAILY 01/07/25 Vitamin with Iron tablet) Previous Rx's ?Medication ?Instructions ?Recorded leflunomide 10 mg tablet 10 mg PO DAILY #90 tabs 10/06/20 furosemide 20 mg tablet 20 mg PO QAM #90 tabs 12/24/24 metoprolol succinate 100 mg 100 mg PO DAILY #90 tabs 12/24/24 tablet,extended release 24 hr prednisone 10 mg tablet 10 mg PO DAILY #14 tabs 01/07/25 Allergies Allergy/AdvReac Type Severity Reaction Status Date / Time hydroxychloroquine Allergy Severe Rash Verified 01/18/25 01:35 [Plaquenil] codeine [Codeine] Allergy Intermediate NAUSEA & Verified 01/18/25 01:35 VOMITING methotrexate Allergy Intermediate Diarrhea Verified 01/18/25 01:35 oxycodone Allergy Intermediate dizziness, Verified 01/18/25 01:35 nausea, vomiting tramadol Allergy Intermediate Diarrhea Verified 01/18/25 01:35 metronidazole Allergy Unknown Vomiting Verified 01/18/25 01:35 hydromorphone [From Dilaudid] AdvReac Vomiting Verified 01/18/25 01:35 Review of Systems 2 Review of Systems: Yes all other systems are reviewed and are negative [facility] Past Medical History Medical History IBS (irritable bowel syndrome) History of cellulitis Elevated cholesterol HTN (hypertension) PONV (postoperative nausea and vomiting) Colon cancer screening Eczema DVT (deep venous thrombosis) Diarrhea Cough Primary osteoarthritis, right hand Primary osteoarthritis, left hand Gout Polymyositis Surgical History Hx of shoulder surgery (11/22/23) History of back surgery (~2019) Hx of endoscopy H/O colonoscopy Social History Social History Are you a primary customer care agent to a significant other at home: No Do you presently have visiting nurse or other home services: No Alcohol intake: never Patient Tobacco Use Status: Never used Tobacco Smoked in Last 30 Days: No e-Cigarette/Vaping Use: Never Used Use of substances other than those prescribed or required for medical reasons: No Advance Directives: No Advance Directives Information Provided: Yes Do you have a plan to hurt others: No Plan Current occupational status: retired and disabled 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 Oriented X3. No acute distress. Eyes: PERRLA, No Nystagmus ENT: Pharynx normal. Oral Mucosa moist Neck: Normal inspection. Neck supple. CVS: Tachycardic. Pulses normal. Respiratory: No respiratory distress. Equal air entry bilateral, no wheezing/rhonchi bilateral crackles right more than the left, prolonged expiration Abdomen: Soft and nontender. Bowel sounds are present, no mass palpable, no CVA tenderness Skin: Skin warm and dry. Normal skin color. Normal skin turgor. Extremities: No lower extremity edema. No calf tenderness Neuro: Oriented X 3. No motor deficit. No sensory deficit.No cerebellar signs , cranial nerves II-XII intact Medications Administered Generic Name Dose Route Start Last Admin Trade Name Freq PRN Reason Stop Dose Admin Heparin Sodium/Sodium Chloride 25,000 unit in 250 mls @ 0 mls/hr 01/18/25 03:45 01/18/25 05:23 Heparin Sodium,Porcine/1/2ns IVCONT 12 units/kg/hr .Q0M GOOD 9.43 mls/hr Administration Protocol Per Protocol Discontinued Medications Generic Name Dose Route Start Last Admin Trade Name Freq PRN Reason Stop Dose Admin Aspirin 162 mg 01/18/25 02:55 01/18/25 03:04 Aspirin Enteric Coated 81 Mg Tablet.Dr PO 01/18/25 02:56 162 mg ONCE ONE Administration Ceftriaxone Sodium 2 gm 01/18/25 02:04 01/18/25 02:28 Ceftriaxone Sodium 2 Gm Vial IVPUSH 01/18/25 02:05 2 gm ONCE ONE Administration Albuterol Sulfate 2.5 mg/ 0 mg 01/18/25 02:02 01/18/25 02:14 Albuterol/Ipratropium 3 ml INHALE 01/18/25 02:03 1 dose ONCE ONE Administration Diltiazem HCl 10 mg 01/18/25 02:54 01/18/25 03:06 Diltiazem Hcl 50 Mg/10 Ml Vial IVPUSH 01/18/25 02:55 10 mg STAT STA Administration Furosemide 20 mg 01/18/25 04:14 01/18/25 04:38 Furosemide 20 Mg/2 Ml Vial IVPUSH 01/18/25 04:15 20 mg ONCE ONE Administration Protocol Heparin Sodium (Porcine) 5,000 unit 01/18/25 02:56 01/18/25 03:05 Heparin Sodium,Porcine 5,000 Unit/Ml Vial IVPUSH 01/18/25 02:57 5,000 unit ONCE ONE Administration Azithromycin 500 mg/ Sodium 250 mls @ 125 mls/hr 01/18/25 02:04 01/18/25 04:59 Chloride IV 01/18/25 04:03 Infused ONCE ONE Infusion Sodium Chloride 1,000 mls @ 999 mls/hr 01/18/25 02:37 01/18/25 04:05 Ns IV 01/18/25 03:37 Infused .Q1H1M ONE Infusion Iohexol 65 ml 01/18/25 05:51 01/18/25 05:51 Iohexol 350 Mg/Ml 100 Ml Infus..Btl IV 01/18/25 05:52 65 ml ONCE ONE Administration Metoprolol Tartrate 5 mg 01/18/25 04:01 01/18/25 04:07 Metoprolol Tartrate 5 Mg/5 Ml Vial IVPUSH 01/18/25 04:02 5 mg ONCE ONE Administration Protocol Medical Decision Making Medical Decision Making [facility] Narrative: Patient has acute onset of chills shortness a breath chest tightness with no prior cardiac history workup showed elevated troponin without any ischemic changes in the EKG bilateral wheezing and few crackles BNP 316 initial troponin 2528 repeat troponin 4408 white WBC count 19 K with left shift. Patient is started on IV antibiotics Rocephin and Zithromax also started on heparin drip and aspirin was given case discussed with hub bander Dr. Raza advised patient to be transferred to tertiary center. Patient did not have any chest pain after arrival Patient has had an episode of tachycardia with PACs after nebulizing treatment with heart rate ranging to 160 responded to Cardizem 10 mg and 5 mg of Lopressor Patient was received furosemide 20 mg of IVP No bed available at [facility] accepted the patient for transfer under Dr. Mari CTA chest done to rule out PE no acute PE Differential Diagnosis Differential Diagnoses: The differential diagnosis associated with the presentation includes Admission/Observation Consideration of admission/observation: Escalation of care including admission/observation considered Lab Data [facility] Lab Attestation statement: I reviewed the patient's lab results. 01/18/25 04:34 01/18/25 01:52 Labs: Lab Results 01/18/25 01/18/25 01/18/25 Range/Units 01:52 02:11 04:34 WBC 18.3 H 19.5 H (4.8-10.8) X10*3/uL RBC 3.71 L 3.37 L (4.20-5.50) X10*6/uL Hgb 11.8 L 10.6 L (12.0-16.0) g/dl Hct 35.3 L 32.4 L (37.0-47.0) % MCV 95.1 96.1 (80.0-98.0) fL MCH 31.8 31.5 (27.0-33.0) pg MCHC 33.4 32.7 (31.0-35.0) g/dl RDW 14.7 14.9 (11.0-16.0) % Plt Count 234 191 (160-400) X10*3/uL MPV 9.3 L 9.7 (9.4-12.3) fL Immature Gran % (Auto) 0.9 H (0.0-0.4) % Neut % (Auto) 87.3 H (45-73) % Lymph % (Auto) 3.7 L (20-40) % [place] % (Auto) 7.4 (2-11) % Eos % (Auto) 0.3 (0-4) % Baso % (Auto) 0.4 (0-2) % Lymph # (Auto) 0.7 L (1.2-4.9) X10*3/uL [place] # (Auto) 1.4 H (0.1-1.2) X10*3/uL Eos # (Auto) 0.1 (0.0-0.4) X10*3/uL Baso # (Auto) 0.1 (0.0-0.2) X10*3/uL Abs Immat Gran (auto) 0.16 H (0.00-0.03) X10*3/uL Absolute Neuts (auto) 15.9 H (2.0-8.3) x10*3/uL Absolute Nucleated RBC 0.000 0.000 (0.0-0.012) X10*3/uL Nucleated RBC % (auto) 0.0 0.0 (0.0-0.2) /100WBC PT 13.3 H (10.9-12.4) SEC INR 1.1 (0.9-1.1) aPTT Heparin Protocol 82.9 H (53-77.9) SEC D-Dimer High Sensitivty 895 NG/ML Sodium 143 (135-145) mmol/L Potassium 3.4 (3.3-5.1) mmol/L Chloride 109 H (96-108) mmol/L Carbon Dioxide 19 L (22-29) mmol/L Anion Gap 18 (12-20) BUN 27 H (9-16) mg/dL Creatinine 0.82 (0.5-1.4) mg/dL Estim Creat Clear Calc 61.4 Estimated GFR > 60 Random Glucose 107 (60-115) mg/dL Lactic Acid 1.9 (0.5-2.0) mmol/L Calcium 9.4 (8.4-10.2) mg/dL Total Bilirubin 0.7 (0.0-1.0) mg/dL AST 33 H (5-31) U/L ALT 13 (0-31) U/L Alkaline Phosphatase 105 (39-117) U/L Troponin I High Sens 2528.5 H* 4408.3 H* D (<3.5-17.0) ng/L B-Natriuretic Peptide 316 H (<100) pg/mL Total Protein 6.7 (6.5-8.0) g/dL Albumin 3.7 (3.5-5.0) g/dL Influenza Type A (PCR) NEGATIVE (Negative) Influenza Type B (PCR) NEGATIVE (Negative) RSV RNA Qual (PCR) NEGATIVE (Negative) SARS-CoV-2 RNA (RT-PCR) NEGATIVE (Negative) Independent Interpretation I performed an independent interpretation of an: EKG Interpretation: Sinus tachycardia heart rate 117 beats per minute poor progression of R-wave no acute ST elevation no acute ischemia Repeat EKG showed heart rate of 158 with PACs no acute ST-elevation Chest x-ray showed bilateral opacities suggestive of pulmonary edema Radiology Impression Discussion of test interpretation with radiology: I have reviewed the radiologist's reading. Radiologist Impression: [address] [address] XRay Report Signed Patient: Karol Frias MR#: [id number] : 1955 Acct:[id number] Age/Sex: 69 / F ADM Date: 01/18/25 Loc: .ED Attending Dr: Ordering Physician: Alirio Soares MD Date of Service: 01/18/25 Procedure(s): XR chest 1V Accession Number(s): [id number] cc: Physician,Unknown ; Alirio Soares MD~ CLINICAL HISTORY: SOB 1 view chest x-ray Comparison: None Findings: Pulmonary edema. No large effusion or pneumothorax. Normal size heart. No acute fracture. IMPRESSION: 1. Pulmonary edema. This document has been electronically signed by: Matt Huerta MD on 01/18/2025 03:21:[address] [place] [address] [address] Scan Report Signed Patient: Karol Frias MR#: [id number] : 1955 Acct:[id number] Age/Sex: 69 / F ADM Date: 01/18/25 Loc: .ED Attending Dr: Ordering Physician: Alirio Soares MD Date of Service: 01/18/25 Procedure(s): CT angio chest PE protocol Accession Number(s): [id number] cc: Physician,Unknown ; Alirio Soares MD~ Report Number: [id number]: Total DLP = 274.00 mGy-cm CLINICAL HISTORY: sob elevated d dimer CT angiography chest with contrast. 3D Postprocessing. Comparison: None Findings: The heart is normal size. RV/LV ratio is normal. No definite PE on this partially motion limited exam. No thoracic aortic aneurysm. Enlarged pulmonary trunk. Query pulmonary arterial hypertension. The visualized thyroid and mediastinum are unremarkable. Small right more than left pleural effusions with neighboring atelectasis. Mild biapical increased interstitial lung markings suggestive of pulmonary edema. Ground-glass opacities predominantly in the apical portions of the upper lobes due to pulmonary edema +/-pneumonia. The visualized upper abdomen is unremarkable. No acute fractures. Right proximal humeral suture anchors. Multilevel ossification of the anterior longitudinal and supraspinous ligaments may be due to noninflammatory spondyloarthropathy or be degenerative in nature. Correlate clinically. IMPRESSION: 1. Small right more than left pleural effusions with neighboring atelectasis. 2. Mild biapical increased interstitial lung markings suggestive of pulmonary edema. Ground-glass opacities predominantly in the apical portions of the upper lobes due to pulmonary edema +/-pneumonia. 3. No definite PE on this partially motion limited exam. No thoracic aortic aneurysm. This document has been electronically signed by: Elizabeth Vieyra MD on 01/18/2025 06:24:58 Critical Care Time Critical Care Time Critical Care Time: Yes Total Critical Care Time: 80 Attestation: The patient was critically ill with a high probability of imminent or life threatening deterioration. I spent greater than ?85??minutes of discontinuous time evaluating the patient,delivering critical care at the bedside, discussing and evaluating pertinent data with consultants. Critical care time does not include time spent performing separately billable procedures or teaching. Total time spent performing critical care was 80 ?minutes. Discharge Plan Discharge Clinical Impression: Non-ST elevated myocardial infarction (non-STEMI), Congestive heart failure, Pneumonia Patient Disposition: [facility] Transfer Details: [facility] ED Dr. Mari Prescriptions: No Action leflunomide 10 mg tablet 10 mg PO DAILY Qty: 90 1RF Vitamin D3 2,000 units PO DAILY atorvastatin 20 mg tablet 20 mg PO DAILY vitamin B complex [B Complex-Vitamin B12] Tablet 1 tab PO DAILY calcium citrate-vitamin D3 [Citracal + D Maximum] 315 mg-6.25 mcg (250 unit) tablet 1 tab PO DAILY acetaminophen 650 mg tablet extended release 650 mg PO Q8H PRN (Reason: Pain) pantoprazole 40 mg tablet,delayed release (DR/EC) 40 mg PO DAILY allopurinol 100 mg tablet 100 mg PO DAILY metoprolol succinate 100 mg tablet extended release 24 hr 100 mg PO DAILY Qty: 90 1RF furosemide 20 mg tablet 20 mg PO QAM Qty: 90 1RF multivitamin with iron [Daily Vitamin with Iron] Tablet 1 tab PO DAILY loperamide [Imodium A-D] 2 mg capsule 2 mg PO QID PRN prednisone 10 mg tablet 10 mg PO DAILY Qty: 14 0RF Print Language: Luxembourgish
[2025-01-18 01:59] LABS: MANUAL DIFF FLAG NO
[2025-01-18 02:00] LABS: Basophils Absolute Auto 0.1 X10*3/uL (0.0-0.2); Basophils Percent Auto 0.4 % (0-2); Eosinophils Absolute Auto 0.1 X10*3/uL (0.0-0.4); Eosinophils Percent Auto 0.3 % (0-4); Hematocrit 35.3 % (37.0-47.0); Hemoglobin 11.8 g/dl (12.0-16.0); Imm Gran Abs Auto 0.16 X10*3/uL (0.00-0.03); Imm Gran Pct Auto 0.9 % (0.0-0.4); Lymphocytes Absolute Auto 0.7 X10*3/uL (1.2-4.9); Lymphocytes Percent Auto 3.7 % (20-40); Mean Corpuscular HGB Conc 33.4 g/dl (31.0-35.0); Mean Corpuscular Hemoglobin 31.8 pg (27.0-33.0); Mean Corpuscular Volume 95.1 fL (80.0-98.0); Mean Platelet Volume 9.3 fL (9.4-12.3); Monocytes Absolute Auto 1.4 X10*3/uL (0.1-1.2); Monocytes Percent Auto 7.4 % (2-11); Neutrophils Absolute Auto 15.9 x10*3/uL (2.0-8.3); Neutrophils Percent Auto 87.3 % (45-73); Platelet Count 234 X10*3/uL (160-400); Red Blood Count 3.71 X10*6/uL (4.20-5.50); Red Cell Distribution Width 14.7 % (11.0-16.0); White Blood Count 18.3 X10*3/uL (4.8-10.8)
[2025-01-18] MEDS: Albuterol Sulfate 2.5 MG, Albuterol/Iprat 2.5/0.5MG 3 ML 3 ML INHALE (02:14)
[2025-01-18 02:18] LABS: Alanine Aminotransferase 13 U/L (0-31); Albumin Level 3.7 g/dL (3.5-5.0); Alkaline Phosphatase 105 U/L (39-117); Anion Gap 18 (12-20); Aspartate Amino Transferase 33 U/L (5-31); Bilirubin Total 0.7 mg/dL (0.0-1.0); Blood Urea Nitrogen 27 mg/dL (9-16); Calcium 9.4 mg/dL (8.4-10.2); Carbon Dioxide 19 mmol/L (22-29); Chloride 109 mmol/L (96-108); Creatinine Clr Calc Pharmacy 61.4; Estimated Glomerular Filt Rate > 60; Glucose Random 107 mg/dL (60-115); Potassium 3.4 mmol/L (3.3-5.1); Sodium 143 mmol/L (135-145); Total Protein 6.7 g/dL (6.5-8.0)
--- NOTE | 2025-01-18 02:26 | MHC.EDTECH ---
assumed care of pt
[2025-01-18] MEDS: cefTRIAXone sodium 2 GM VIAL IVPUSH (02:28)
[2025-01-18 02:31] LABS: Lactic Acid 1.9 mmol/L (0.5-2.0)
[2025-01-18 02:34] LABS: Troponin-I High Sensitivity 2528.5 ng/L (<3.5-17.0)
[2025-01-18 02:36] LABS: Influenza A PCR NEGATIVE (Negative); Influenza B PCR NEGATIVE (Negative); Resp Syncy Virus RNA Qual PCR NEGATIVE (Negative); SARS COV2 PCR INHOUSE NEGATIVE (Negative)
--- NOTE | 2025-01-18 02:45 | ECG_ITS ---
Test Reason : CHEST PAIN/TACHYCARDIA Blood Pressure : */* mmHG Vent. Rate : 158 BPM Atrial Rate : 178 BPM P-R Int : 176 ms QRS Dur : 66 ms QT Int : 296 ms P-R-T Axes : 15 44 34 degrees QTcB Int : 480 ms Normal sinus rhythm with frequent Premature atrial complexes and short burst of AF Septal infarct (cited on or before 18-Jan-2025) Abnormal ECG When compared with ECG of 18-Jan-2025 01:43, Frequent and consecutive PAC and possible short burst of AF present ST no longer elevated in Lateral leads T wave inversion now evident in Inferior leads Referred By: Alirio Soares Electronically Signed By: NIKO DEY MD
[2025-01-18] MEDS: 0.9 % Sodium Chloride 1,000 ML 999 ML IV (02:47)
[2025-01-18] MEDS: Azithromycin 500 MG in 0.9 % Sodium Chloride 250 ML 125 MG IV (02:47)
[2025-01-18] MEDS: Aspirin Enteric Coated 81 MG TABLET.DR 162 MG PO (03:04)
[2025-01-18] MEDS: Heparin Sodium,Porcine 5,000 UNIT/ML VIAL 5000 UNIT IVPUSH (03:05)
[2025-01-18] MEDS: dilTIAZem HCL 50 MG/10 ML VIAL 10 MG IVPUSH (03:06)
--- NOTE | 2025-01-18 03:09 | PC.NURSE ---
pt HR elevated and irregular 120-202 bpm. aware. second EKG ordered. 2nd IV to RAC 20g. pt medicated per MAR. pt denies chest pain.
--- NOTE | 2025-01-18 03:19 | PC.NURSE ---
cardizem given per MAR. HR decreased to 100-130, remains irregular
--- NOTE | 2025-01-18 03:57 | PC.NURSE ---
pt increased to 140-160. MD bone
[2025-01-18] MEDS: Metoprolol Tartrate 5 MG/5 ML VIAL IVPUSH (04:07)
[2025-01-18 04:09] LABS: B Type Natriuretic Peptide 316 pg/mL (<100)
[2025-01-18] MEDS: Furosemide 20 MG/2 ML VIAL IVPUSH (04:38)
[2025-01-18 04:41] LABS: Hematocrit 32.4 % (37.0-47.0); Hemoglobin 10.6 g/dl (12.0-16.0); Mean Corpuscular HGB Conc 32.7 g/dl (31.0-35.0); Mean Corpuscular Hemoglobin 31.5 pg (27.0-33.0); Mean Corpuscular Volume 96.1 fL (80.0-98.0); Mean Platelet Volume 9.7 fL (9.4-12.3); Platelet Count 191 X10*3/uL (160-400); Red Blood Count 3.37 X10*6/uL (4.20-5.50); Red Cell Distribution Width 14.9 % (11.0-16.0); White Blood Count 19.5 X10*3/uL (4.8-10.8)
[2025-01-18 04:51] LABS: INTERNATIONAL NORM RATIO 1.1 (0.9-1.1); Prothrombin Time 13.3 SEC (10.9-12.4)
[2025-01-18 04:54] LABS: PTT Heparin Drip 82.9 SEC (53-77.9)
--- NOTE | 2025-01-18 05:01 | PC.NURSE ---
pt moved to room 4 for closer monitoring
--- NOTE | 2025-01-18 05:04 | PC.NURSE ---
pt resting comfortably, SOB is resolved, pt reports just feeling tired, cough has subsided some. pt ambulated to the bathroom. placed on 2L NC per provider, was 90% RA. MD aware of low BP.
[2025-01-18] MEDS: Heparin Sodium,Porcine/1/2NS 25,000 UNIT/250 ML IV.SOLN 9.43 UNIT IVCONT (05:23)
[2025-01-18 05:26] LABS: Troponin-I High Sensitivity 4408.3 ng/L (<3.5-17.0)
--- NOTE | 2025-01-18 05:26 | PC.NURSE ---
heparin drip started at this time
[2025-01-18 05:28] LABS: D Dimer High Sensitivity 895 NG/ML
--- NOTE | 2025-01-18 05:33 | PC.NURSE ---
critical trop 4408.3 increased from 2528.5. MD bone
[2025-01-18] MEDS: iohexoL 350 MG/ML 100 ML INFUS..BTL 65 ML IV (05:51)
--- NOTE | 2025-01-18 06:35 | MHC.EDTECH ---
placed on purewick while we wait for commodes to be available
--- NOTE | 2025-01-19 11:07 | MHC.EDTECH ---
FAX NUMBER FOR [facility] TO FAX BLOOD CULTURE RESULTS: [phone]
== END 2025-01-18 08:53 | disposition short-term general hospital (02) ==
PROVIDERS: Emergency Provider Internal Medicine
DX: I21.4 Non-ST elevation (NSTEMI) myocardial infarction (principal); I11.0 Hypertensive heart disease with heart failure; I50.9 Heart failure, unspecified; J18.9 Pneumonia, unspecified organism; R06.02 Shortness of breath; R68.83 Chills (without fever); R05.9 Cough, unspecified; J81.1 Chronic pulmonary edema; E78.00 Pure hypercholesterolemia, unspecified; Z03.818 Encounter for observation for suspected exposure to other biological agents ruled out; Z79.899 Other long term (current) drug therapy
CPT/HCPCS: 0241U; 36415; 71045; 71275; 80053; 83605; 83880; 84484; 85025; 85027; 85379; 85610; 85730; 87040; 87147; 87205; 93005; 94640; 96361; 96365; 96366; 96375; 99285; J0456; J0696; J1644; J1938; Q9967

== ENCOUNTER → 2025-01-18 01:38 | Outpatient (BNV) | payer MEDICARE, OTHER, SELFPAY | PROVIDERS: Emergency Provider Internal Medicine; Visit Provider Internal Medicine Cardiovascular Disease | DX: R00.0 Tachycardia, unspecified (principal); I49.1 Atrial premature depolarization; I25.2 Old myocardial infarction | CPT/HCPCS: 93010 ==

== ENCOUNTER → 2025-01-18 01:55 | Outpatient (BNV) | payer MEDICARE, OTHER, SELFPAY | PROVIDERS: Emergency Provider Internal Medicine; Visit Provider Radiology Diagnostic Radiology | DX: R06.02 Shortness of breath (principal); R79.89 Other specified abnormal findings of blood chemistry; R91.8 Other nonspecific abnormal finding of lung field; J81.0 Acute pulmonary edema | CPT/HCPCS: 71045 ==

== ENCOUNTER 2025-01-26 10:51 | Outpatient (AMB) | payer MEDICARE, OTHER, SELFPAY ==
--- NOTE | 2025-01-26 10:53 | A.OFFPC_ITS ---
Vital Signs 01/26/25 11:01 Height 5 ft 1 in Weight 72.121 kg BMI 30.0 BP 137/70 Respiration 16 Pulse 66 Pulse Source Pulse Oximeter Temp 97.6 F Temp Source Temporal Artery Scan Pulse Oximetry (%) 99 Oxygen Delivery Method Room Air Intake Visit Reasons: [facility] Layer Off Required: No Accompanied by: Self / Same As Patient Allergies hydroxychloroquine [Plaquenil] Allergy (Severe, Verified 01/26/25 10:57) Rash codeine [Codeine] Allergy (Intermediate, Verified 01/26/25 10:57) NAUSEA & VOMITING methotrexate Allergy (Intermediate, Verified 01/26/25 10:57) Diarrhea oxycodone Allergy (Intermediate, Verified 01/26/25 10:57) dizziness, nausea, vomiting tramadol Allergy (Intermediate, Verified 01/26/25 10:57) Diarrhea metronidazole Allergy (Unknown, Verified 01/26/25 10:57) Vomiting hydromorphone [From Dilaudid] Adverse Reaction (Verified 01/26/25 10:57) Vomiting HPI HPI Comments History of Present Illness Details 69-year-old female with history of hyper tension, hyperlipidemia, eczema on prednisone recently, history of gout, history of DVT, CHF presents to the office today to establish care and for hospital follow-up. Discharge medications have been reviewed and reconciled. Discharge summary and specialist consult notes have been reviewed. She had initially presented to the ER at [facility] for evaluation of chills, shortness of breath, chest tightness as well as dry cough. The patient had significantly elevated troponins of [id number] with EKG negative for any acute ischemic changes she also [place] a [place] [address] with left shift and was started on empiric antibiotics including Rocephin and Zithromax as well as heparin drip and given aspirin. Cardiology recommended transfer to tertiary center and was accepted to [facility] ED. course was complicated with the ED received positive blood cultures which ultimately grew strep B. she was started on vancomycin and cefepime at the recommendation of Cardiology and ID was consulted ultimately recommending IV ceftriaxone. Repeat blood culture was negative and she did not require long-term antibiotics. She was thought to have septic shock vs cardiogenic shock given she had a period of significant hypotension and required vasopressors At [place], lactic acidosis trended down to 1.4, [place] [address]. Echocardiogram showed reduced LV systolic function with EF 45% and severe hypo to akinesis of the mid anterior, mid anterolateral, mid anteroseptal, and mid in the lateral segments. She was continued on heparin. She did undergo cardiac catheterization which was negative for any significant coronary artery disease. Followed by Cardiology. She was diuresed and was ultimately discharged on Lasix 40 mg and Toprol. During stay, she had also developed new onset atrial fibrillation. She was discharged on 5 mg of Eliquis twice daily. There was questions whether the urine vs skin was the source of the bactermia an d possible septic shock. She does have history of strep B cellulitis from wound culture taken from legs. She has chronic severe eczema which responds well to prednisone but does not have a dining manager nor does she have a maintenance routine. She has significant rash with excoriations on the bilateral knees as well as the forearms and elbows. Time spent with patient- 40 minutes. Reviewing documentation (126 pages)- 20 minutes. Documentation- 10 minutes ROS: General: No fevers, malaise, unintentional weight loss Cardiovascular: No chest pain, palpitations, or leg edema Respiratory: No shortness of breath, wheezing, cough MSK: No myalgia, back pain Neuro: No headaches, weakness, paresthesias Skin: see hpi Exam: Constitutional - Awake and Alert, No apparent distress Eyes - PERRLA, EOMI Cardiovascular - S1S2, RRR, No edema Respiratory - Normal lung expansion, Normal respiratory effort, No respiratory distress, CTA bilaterally Extremities - no calf tenderness bilaterally, no swelling Skin - Warm/Dry. [place] swollen skin covering the bilateral knees and proximal lower leg and distal thighs with excoriations. Similar appearance around the elbows bilaterally Neurological - Alert & oriented x3 Psychological - Appropriate affect [facility] Medical History (Updated 01/29/25 @ 18:39 by CARIDAD Gonzales) Congestive heart failure Atrial fibrillation Septic shock Group B streptococcal bacteriuria IBS (irritable bowel syndrome) History of cellulitis Elevated cholesterol HTN (hypertension) PONV (postoperative nausea and vomiting) Colon cancer screening Eczema DVT (deep venous thrombosis) Diarrhea Cough Primary osteoarthritis, right hand Primary osteoarthritis, left hand Gout Polymyositis Surgical History (Updated 01/25/25 @ 16:41 by Kati Meredith) Hx of shoulder surgery (11/22/23) History of back surgery (~2019) Hx of endoscopy H/O colonoscopy (~02/11/19) Social History Are you a primary lawn care professional to a significant other at home: No Do you presently have visiting nurse or other home services: No Alcohol intake: never Patient Tobacco Use Status: Never used Tobacco e-Cigarette/Vaping Use: Never Used Current occupational status: retired and disabled 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 Physical exam (Primary Care) Vital Signs: Last Vital Signs Temp 97.6 F 01/26/25 11:01 Pulse 66 01/26/25 11:01 Resp 16 01/26/25 11:01 BP 137/70 01/26/25 11:01 Pulse Ox 99 01/26/25 11:01 Oxygen Delivery Method Room Air 01/26/25 11:01 BMI result Body Mass Index 30.0 Tobacco/Smoking Status: Tobacco use Status Patient Tobacco Use Status Never used Tobacco 01/26/25 10:56 e-Cigarette/Vaping Use Never Used 01/26/25 10:56 Coding Level of Care Code New Pt Level 5 (80747) Complex EM visit Add On G2211 Diagnoses Atrial fibrillation I48.91 HTN (hypertension) I10 Severe eczema L30.9 Group B streptococcal bacteriuria R82.71 Septic shock A41.9; R65.21 Assessment & Plan Assessment & Plan (1) Atrial fibrillation: Code(s): I48.91 - Unspecified atrial fibrillation Category: Medical Plan: New onset, possibly related to severe infection. Continue Eliquis 5 mg twice daily for anticoagulation. Continue metoprolol 50 mg twice daily for rate control. Rate controlled in the office today. Referred to cardiology. (2) HTN (hypertension): Code(s): I10 - Essential (primary) hypertension Category: Medical Plan: Controlled blood pressure 137/70. Continue metoprolol (3) Severe eczema: Code(s): L30.9 - Dermatitis, unspecified Category: Medical Plan: She is given short course of prednisone for management of severe eczema with excoriation that puts her at risk for recurrence of infection. She is also given triamcinolone cream to use twice daily as needed. Referral to Dermatology placed. (4) Group B streptococcal bacteriuria: Code(s): R82.71 - Bacteriuria Category: Medical Plan: Resolved. Likely cutaneous in etiology due to severe eczema. See above. Completed course of antibiotics while admitted. (5) Septic shock: Code(s): A41.9 - Sepsis, unspecified organism; R65.21 - Severe sepsis with septic shock Category: Medical Plan: Related to probable cutaneous infection with group B strep and bacteremia. Required vasopressors at [facility] with improvement in blood pressure and lactic acid did trend down with antibiotics. Plan Follow-up in the office in 4 months. Referrals placed to Cardiology, Dermatology, Rheumatology. Labs to be completed following visit. Orders: Orders Basic Metabolic Panel 01/26/25 E78.00 - Pure hypercholesterolemia, unspecified, I10 - Essential (primary) hypertension, I48.91 - Unspecified atrial fibrillation, L30.9 - Dermatitis, unspecified, Z13.1 - Encounter for screening for diabetes mellitus, Z51.89 - Encounter for other specified aftercare Liver Panel 01/26/25 L30.9 - Dermatitis, unspecified Lipid Panel 01/26/25 L30.9 - Dermatitis, unspecified TSH reflex Free T4 01/26/25 L30.9 - Dermatitis, unspecified IRON PROFILE 01/26/25 D64.9 - Anemia, unspecified Complete Blood Count Auto Diff 01/26/25 L30.9 - Dermatitis, unspecified Hemoglobin A1c 01/26/25 L30.9 - Dermatitis, unspecified Referrals Cardiology Referral I48.91 - Unspecified atrial fibrillation, I50.9 - Heart failure, unspecified Dermatology Referral L30.9 - Dermatitis, unspecified Rheumatology Referral M33.20 - Polymyositis, organ involvement unspecified Medications: New prednisone see taper instructions; 40 mg Daily x3 days, 30 mg daily x3 days, 20 mg daily x3 days, 10 mg daily x3 days 10 mg PO DIRECTED 30 tabs 0RF triamcinolone acetonide 0.1% 1 appl topical BID 30 grams 1RF Patient Instructions: Cardiology referral Dermatology referral Rheumatology referral Prednisone taper. Start triamcinolone cream after completed prednisone Continue all other medications Labs to be completed today Follow up in the office as scheduled
[2025-01-26 11:01] VITALS: BP 137/70; PULSE 66; RESP 16; TEMP 36.4; O2SAT 99
--- OUTSIDE RECORDS SUMMARY | 2025-01-26 12:05 | XMS_ITS | Clinical Summary ---
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 Name Role Phone Kenisha Ozuna MD Primary Care Provider [phone] Allergies Active Allergy Reactions Criticality Noted Date Comments Codeine Unknown/Patient and Family Unable to Define Medium 01/18/2025 Metronidazole Unknown/Patient and Family Unable to Define Medium 01/18/2025 Hydromorphone Unknown/Patient and Family Unable to Define Medium 01/18/2025 Hydroxychloroquine Unknown/Patient and Family Unable to Define Medium 01/18/2025 Methotrexate Unknown/Patient and Family Unable to Define Medium 01/18/2025 Oxycodone Unknown/Patient and Family Unable to Define Medium 01/18/2025 Tramadol Unknown/Patient and Family Unable to Define Medium 01/18/2025 Medications allopurinol (ZYLOPRIM) 100 mg tablet Take 2 tablets (200 mg total) by mouth daily. 12/26/19 25 Active atorvastatin (LIPITOR) 20 MG tablet Take 1 tablet (20 mg total) by mouth every morning. 11/17/19 25 Active leflunomide (ARAVA) 10 MG tablet Take 1 tablet (10 mg total) by mouth every morning. 11/17/19 25 Active PANTOprazole (PROTONIX) 40 MG EC tablet Take 1 tablet (40 mg total) by mouth every morning. 12/26/19 25 Active silver sulfADIAZINE (SILVADENE) 1 % cream APPLY TO SKIN DAILY 11/14/19 25 Active Vitamin D3 (CHOLECALCIFEROL) 50 MCG (2000 UT) tablet Take 1 tablet (2,000 Units total) by mouth daily. Active B-Complex Cap Take 1 capsule by mouth daily. Active furosemide (LASIX) 20 MG tabletIndications :Acute decompensated heart failure (HCC) Take 2 tablets (40 mg total) by mouth every morning. 60 tablet 01/24/20 25 025 Active metoPROLOL SUCCINATE (TOPROL-XL) 50 MG 24 hr tabletIndications :Atrial fibrillation (HCC) Take 1 tablet (50 mg total) by mouth every morning. 30 tablet 01/24/20 25 025 Active apixaban (ELIQUIS) 5 MG tabletIndications :Atrial fibrillation (HCC) Take 1 tablet (5 mg total) by mouth every 12 (twelve) hours around the clock. 60 tablet 01/24/20 Active furosemide (LASIX) 20 MG tablet Take 1 tablet (20 mg total) by mouth every morning. 11/17/19 25 Discontinued metoPROLOL SUCCINATE (TOPROL-XL) 100 MG 24 hr tablet Take 1 tablet (100 mg total) by mouth every morning. 12/25/19 25 Discontinued predniSONE (DELTASONE) 10 MG tablet Take 1 tablet (10 mg total) by mouth every morning. For 2 weeks 01/08/20 Discontinued(St op Taking at Discharge) Active Problems Problem Noted Date Diagnosed Date Heart failure with reduced ejection fraction Pulmonary edema 01/19/2025 Assessment & Plan (01/19/2025 2:49 PM EDT): ECHO EF 45%. Severe hypo to akinesis of the mid anterior, mid anterolateral, mid anterior septal and mid inferolateral segments. Mild aortic stenosis and mild to moderate tricuspid regurgitation. CXR trace left pleural effusion with left basilar subsegmental atelectasis. Minimal interstitial pulmonary edema. BNP 96589 Trop 647 -> 542 SBP 105 - Per interventional cardiology plan for RHC/LHC +/- PCI 01/20 and plan for n.p.o. at midnight - [id number] 2 - Continue heparin GTT - Aspirin 81 mg once daily - Lipitor 80 mg once daily - Lasix 40 mg IV twice daily - Lopressor 20 mg twice daily - Lipids in a.m. - Strict I's and O's, daily weights, telemetry - K>4 and Mg >2 Type 1 non-ST elevation myocardial infarction (N STEMI) 01/19/2025 Assessment & Plan (01/19/2025 2:49 PM EDT): ECHO EF 45%. Severe hypo to akinesis of the mid anterior, mid anterolateral, mid anterior septal and mid inferolateral segments. Mild aortic stenosis and mild to moderate tricuspid regurgitation. CXR trace left pleural effusion with left basilar subsegmental atelectasis. Minimal interstitial pulmonary edema. BNP 72627 Trop 647 -> 542 SBP 105 - Per interventional cardiology plan for RHC/LHC +/- PCI 01/20 and plan for n.p.o. at midnight - [id number] 2 - Continue heparin GTT - Aspirin 81 mg once daily - Lipitor 80 mg once daily - Lasix 40 mg IV twice daily - Lopressor 20 mg twice daily - Lipids in a.m. - Strict I's and O's, daily weights, telemetry - K>4 and Mg >2 Atrial fibrillation with RVR 01/19/2025 Assessment & Plan (01/19/2025 2:49 PM EDT): ECHO EF 45%. Severe hypo to akinesis of the mid anterior, mid anterolateral, mid anterior septal and mid inferolateral segments. Mild aortic stenosis and mild to moderate tricuspid regurgitation. CXR trace left pleural effusion with left basilar subsegmental atelectasis. Minimal interstitial pulmonary edema. BNP 68364 Trop 647 -> 542 SBP 105 - Per interventional cardiology plan for RHC/LHC +/- PCI 01/20 and plan for n.p.o. at midnight - [id number] 2 - Continue heparin GTT - Aspirin 81 mg once daily - Lipitor 80 mg once daily - Lasix 40 mg IV twice daily - Lopressor 20 mg twice daily - Lipids in a.m. - Strict I's and O's, daily weights, telemetry - K>4 and Mg >2 Systolic murmur 01/19/2025 Assessment & Plan (01/19/2025 2:49 PM EDT): ECHO EF 45%. Severe hypo to akinesis of the mid anterior, mid anterolateral, mid anterior septal and mid inferolateral segments. Mild aortic stenosis and mild to moderate tricuspid regurgitation. CXR trace left pleural effusion with left basilar subsegmental atelectasis. Minimal interstitial pulmonary edema. BNP 58826 Trop 647 -> 542 SBP 105 - Per interventional cardiology plan for RHC/LHC +/- PCI 01/20 and plan for n.p.o. at midnight - [id number] 2 - Continue heparin GTT - Aspirin 81 mg once daily - Lipitor 80 mg once daily - Lasix 40 mg IV twice daily - Lopressor 20 mg twice daily - Lipids in a.m. - Strict I's and O's, daily weights, telemetry - K>4 and Mg >2 GERD (gastroesophageal reflux disease) 5 Assessment & Plan (01/19/2025 2:47 PM EDT): - Will hold bowel regimen and if patient continues to have diarrhea consider sampling her stool - Protonix 40 mg once daily Iron deficiency anemia 01/19/2025 Assessment & Plan (01/19/2025 2:47 PM EDT): Hgb 10.0 TIBC 172, iron 21, iron sat 12 - Per patient she had a colonoscopy a couple years ago and it was unremarkable - Given bacteremia will hold off on iron supplementation - Trend labs Bacteremia due to Gram-positive bacteria 025 Assessment & Plan (01/19/2025 2:47 PM EDT): Afebrile, WBC 10.9 S/p azithromycin and cefepime - ID consulted, appreciate recommendations - Per previous notes BC at OSH grew gram-positive chains. Blood cultures 01/18 no growth to date. - Continue ceftriaxone - Trend labs Diarrhea 01/19/2025 Assessment & Plan (01/19/2025 2:47 PM EDT): - Will hold bowel regimen and if patient continues to have diarrhea consider sampling her stool - Protonix 40 mg once daily Resolved Problems Problem Noted Date Diagnosed Date Resolved Date Metabolic acidosis 01/19/2025 5 Assessment & Plan (01/19/2025 2:47 PM EDT): Lactic 4.4 -> 1.4 Bicarb 19 -> 25 - Trend labs Lactic acidosis 01/19/2025 01/19/2025 Assessment & Plan (01/19/2025 2:47 PM EDT): Lactic 4.4 -> 1.4 Bicarb 19 -> 25 - Trend labs Leukocytosis 01/19/2025 01/19/2025 Assessment & Plan (01/19/2025 2:47 PM EDT): Afebrile, WBC 10.9 S/p azithromycin and cefepime - ID consulted, appreciate recommendations - Per previous notes BC at OSH grew gram-positive chains. Blood cultures 01/18 no growth to date. - Continue ceftriaxone - Trend labs Cardiogenic shock 01/18/2025 01/19/2025 Assessment & Plan (01/19/2025 2:49 PM EDT): ECHO EF 45%. Severe hypo to akinesis of the mid anterior, mid anterolateral, mid anterior septal and mid inferolateral segments. Mild aortic stenosis and mild to moderate tricuspid regurgitation. CXR trace left pleural effusion with left basilar subsegmental atelectasis. Minimal interstitial pulmonary edema. BNP 61404 Trop 647 -> 542 SBP 105 - Per interventional cardiology plan for RHC/LHC +/- PCI 01/20 and plan for n.p.o. at midnight - [id number] 2 - Continue heparin GTT - Aspirin 81 mg once daily - Lipitor 80 mg once daily - Lasix 40 mg IV twice daily - Lopressor 20 mg twice daily - Lipids in a.m. - Strict I's and O's, daily weights, telemetry - K>4 and Mg >2 Encounters Date Type Department Care Team Description 01/26/2025 Orders Only [facility] [address] [place] [address] Dante Ferrara MD Acute decompensated heart failure (HCC) 01/25/2025 Orders Only [facility] Heart & Vascular [place] - [facility] [address] [facility] [address] [place] [address] Marlyn Luevano, RING MAKING MACHINE OPERATOR 01/20/2025 2:09 PM EDT - 01/20/2025 3:33 PM EDT Surgery [facility] Heart & V[facility] [place] [facility] - Cardiac Catheterization Laboratory [address] [place] [address] Geovanni Howell MD CORONARY ANGIO W/LV+LT/RT CATH 01/18/2025 10:50 AM EDT Ancillary Procedure [facility] Radiology [address] [place] [address] Provider, File Room 01/18/2025 10:50 AM EDT Ancillary Procedure [facility] Radiology [address] [place] [address] Provider, File Room 01/18/2025 10:15 AM EDT Ancillary Procedure [facility] Emergency Department [address] [place] [phone] Deena Guajardo MD 01/18/2025 9:48 AM EDT - 01/23/2025 5:13 PM EDT Hospital Encounter [facility] [address] [place] [address] Monica Agrawal MD Schreyer, MD Molly Nance, MD Sissy Ross Mohamad, MD Shah, MD Saeed Altman, MD Jerry Contreras Bibek, MD Gupta, MD Dante Cardiogenic shock (HCC) (Primary Dx); NSTEMI (non-ST elevated myocardial infarction) (HCC); Pneumonia; Acute decompensated heart failure (HCC); Atrial fibrillation (HCC) Discharge Disposition: Home or Self Care 01/18/2025 Orders Only [facility] Radiology [address] [place] [address] Provider, File Room 01/18/2025 Travel from Last 3 Months Social History Tobacco Use Types Packs/Day Years Used Date Smoking Tobacco: Never Smokeless Tobacco: Never Tobacco Cessation:Counseling Given: Not Answered Alcohol Use Standard Drinks/Week Comments Not Currently 0 (1 standard drink = 0.6 oz pur e alcohol) [facility] Utilities Answer Date Recorded In the past 12 months has [employer], oil, or water company threatened to shut off services in your home? No 01/19/2025 AUDIT-C Answer Date Recorded Q1: How often do you have a drink containing alcohol? Never 01/19/2025 Q2: How many drinks containi ng alcohol do you have on a typical day when you are drinking? Patient does not drink Q3: How often do you have si x or more drinks on one occasion? Never 01/19/2025 Overall Financial Resource Strain (CARDIA) Answe r Date Recorded How hard is it for you to pa y for the very basics like food, housing, medical care, and heating? Not very hard 01/19/2025 Hunger Vital Sign Answer Date Recorded Within the past 12 months, y ou worried that your food would run out before you got the money to buy more. Never true 01/20/20 25 Within the past 12 months, t he food you bought just didn't last and you didn't have money to get more. Never true 01/19/2025 PRAPARE - Transportation Answer Date Re corded In the past 12 months, has l ack of transportation kept you from medical appointments or from getting medications? No 01/07 In the past 12 months, has l ack of transportation kept you from meetings, work, or from getting things needed for daily living? No 01/19/2025 Housing Stability Vital Sign Answer Nate e Recorded In the last 12 months, was t here a time when you were not able to pay the mortgage or rent on time? No 01/19/2025 In the past 12 months, how m any times have you moved where you were living? 0 01/19/2025 At any time in the past 12 m [facility], were you homeless or living in a jail (including now)? No 01/19/2025 Comments Unknown Sex and Gender Information Value Date Recorded Sex Assigned at Female 01/18/2025 10:27 AM EDT Legal Sex Female 9:33 AM EDT Gender Identity Female 01/18/2025 10:27 AM EDT Sexual Orientation Heterosexual (straight) 01/18 10:27 AM EDT Last Filed Vital Signs Vital Sign Reading Time Taken Comments Blood Pressure 139/95 01/23/2025 3:28 PM EDT Pulse 67 01/23/2025 7:27 AM EDT Temperature 35.8 ??C (96.5 ??F) 01/23/2025 7:27 AM ED T Respiratory Rate 18 01/23/2025 7:27 AM EDT Oxygen Saturation 96% 01/23/2025 3:28 PM EDT Inhaled Oxygen Concentration - - Weight 70.1 kg (154 lb 8.7 oz) 01/23/2025 6:18 A M EDT Height 154.9 cm (5' 1 ) 01/19/2025 7:00 AM EDT Body Mass Index 29.2 01/19/2025 7:00 AM EDT Plan of Treatment Upcoming Encounters Date Type Department Care Team (Late st Contact Info) Description 01/29/2025 11:00 AM EDT Infusion [facility] Heart & Vascular [place] [facility] [address] [facility] [address] [place] [id number] Health Maintenance Due Date Last Done Comments Hepatitis C Virus Screening 1955 COVID-19 Vaccine (#1) 1960 DTaP/Tdap/Td Vaccines (1 - Tdap) 1974 Pneumococcal Vaccines 50+ (1 of 2 - PCV) 1974 Zoster (Shingles) Vaccine (1 of 2) 1974 Mammogram 1995 Colonoscopy 2000 RSV Vaccine 60 years and old er and Patients (1 - Risk 60-74 years 1-dose series) 2015 DXA Bone Density (Females,Ag es 65 and older) 2020 Influenza Vaccine 04/09/2025 Hepatitis B Vaccines Aged Out No long er eligible based on patient's age to complete this topic Procedures Procedure Name Priority Date/Time Associated Diagnosis Comments MAGNESIUM Routine 01/23/2025 6:11 AM EDT BASIC METABOLIC PANEL Routine 01/23/2025 6:11 AM EDT COMPLETE BLOOD COUNT, WITHOUT DIFFERENTIAL Routine 01/22/2025 8:02 AM EDT MAGNESIUM Routine 01/22/2025 8:02 AM EDT BASIC METABOLIC PANEL Routine 01/22/2025 8:02 AM EDT MAGNESIUM Routine 01/21/2025 8:19 AM EDT BASIC METABOLIC PANEL Routine 01/21/2025 8:19 AM EDT HEPARIN ASSAY (ANTI-XA) Routine 01/21/20 5:04 PM EDT CARDIAC CATHETERIZATION Routine 01/21/20 3:30 PM EDT POCT O2 SATURATION (AVOX) (NO CHARGE) Routine 01/20/2025 3:17 PM EDT HEPARIN ASSAY (ANTI-XA) Routine 01/21/20 10:13 AM EDT PROBNP, N-TERMINAL Routine 01/20/2025 7: 55 AM EDT MAGNESIUM Routine 01/20/2025 7:55 AM EDT BASIC METABOLIC PANEL Routine 01/20/2025 7:55 AM EDT COMPLETE BLOOD COUNT, WITHOUT DIFFERENTIAL Routine 01/20/2025 7:55 AM EDT LIPID PANEL Routine 01/20/2025 7:55 AM EDT HEPARIN ASSAY (ANTI-XA) Routine 01/21/20 3:51 AM EDT HEPARIN ASSAY (ANTI-XA) Routine 01/20/20 9:44 PM EDT HEPARIN ASSAY (ANTI-XA) Routine 01/20/20 2:00 PM EDT ECG 12-LEAD Routine 01/19/2025 9:09 AM EDT FOLATE LEVEL Routine 01/19/2025 8:00 AM EDT VITAMIN B12 Routine 01/19/2025 8:00 AM EDT IRON AND TOTAL IRON BINDING CAPACITY Routine 01/19/2025 8:00 AM EDT MAGNESIUM Routine 01/19/2025 8:00 AM EDT POTASSIUM Routine 01/19/2025 8:00 AM EDT ECG 12-LEAD Routine 01/19/2025 7:31 AM EDT HEPARIN ASSAY (ANTI-XA) Routine 01/20/20 6:01 AM EDT HEMOGLOBIN A1C WITH ESTIMATED AVERAGE GLUCOSE Routine 01/18/2025 11:46 PM EDT MAGNESIUM Routine 01/18/2025 11:46 PM EDT BASIC METABOLIC PANEL Routine 01/18/2025 11:46 PM EDT COMPLETE BLOOD COUNT, WITHOUT DIFFERENTIAL Routine 01/18/2025 11:46 PM EDT LISA CARDIAC POC ULTRASOUND Routine 01/18/2025 8:55 PM EDT NSTEMI (non-ST elevated myocardial infarction) (HCC) Cardiogenic shock (HCC) HEPARIN ASSAY (ANTI-XA) Routine 01/19/20 8:30 PM EDT LACTIC ACID, PLASMA Routine 01/18/2025 6 :23 PM EDT PROBNP, N-TERMINAL Routine 01/18/2025 6: 22 PM EDT XR CHEST 1 VIEW-PORTABLE Routine 01/18/2025 4:47 PM EDT URINALYSIS WITH REFLEX TO MICROSCOPIC STAT 01/18/2025 4:43 PM EDT INFLUENZA A/B, RSV, SARS-COV-2 ESSIE MULTIPLEX Routine 01/18/2025 4:43 PM EDT NASAL MRSA SCREEN, PCR STAT 4:43 PM EDT ECHOCARDIOGRAM (TTE) COMPREHENSIVE (CONTRAST PRN) Routine 01/18/2025 4:39 PM EDT ECG 12-LEAD Routine 01/18/2025 3:53 PM EDT POCT GLUCOSE, FINGERSTICK (CHARGE) Routine 01/18/2025 3:44 PM EDT HEPARIN ASSAY (ANTI-XA) STAT 01/19/20 1:38 PM EDT HIGH SENSITIVITY TROPONIN T Routine 01/18/2025 12:33 PM EDT LACTIC ACID, PLASMA Timed 01/18/2025 1 2:[address] CHEST ARCHIVE FOR REFERENCE ONLY Routine 01/18/2025 10:47 AM EDT CR CHEST ARCHIVE FOR REFERENCE ONLY Routine 01/18/2025 10:47 AM EDT PARTIAL THROMBOPLASTIN TIME (PTT) STAT 01/18/2025 10:39 AM EDT PROTIME-INR STAT 01/18/2025 10:39 AM EDT HIGH SENSITIVITY TROPONIN T CARD 01/18/2025 10:39 AM EDT MAGNESIUM STAT 01/18/2025 10:39 AM EDT COMPREHENSIVE METABOLIC PANEL STAT 01/18/2025 10:39 AM EDT COMPLETE BLOOD COUNT, WITH DIFFERENTIAL STAT 01/18/2025 10:39 AM EDT LACTIC ACID, PLASMA Timed 01/18/2025 1 0:39 AM EDT BLOOD CULTURE (HOSP LAB) STAT 01/18/2025 10:39 AM EDT ECG 12-LEAD ED Critical 01/18/2025 10:10 AM EDT from Last 3 Months Results * Magnesium (AM) (01/23/2025 6:11 AM EDT) Only the most recent of7 resultswithin the time period is included. Magnesium 2.0 1.6 - 2.7 mg/dL 01/23/2025 7:17 AM T [facility] Blood Blood specimen / Unknown 01/23/2025 6:11 AM EDT 01/23/2025 6:44 AM EDT Brittany Sheehan MD LAB BLOOD [place] [address], [address] [address] * (ABNORMAL) Basic Metabolic Panel (01/23/2025 6:11 AM EDT) Only the most recent of5 resultswithin the time period is included. [facility] Glucose 88 65 - 99 mg/dL 01/23/2025 7:17 AM [facility] Comment:Fasting: <100 mg/dL, Non-Fasting: <200 mg/dL (ADA 2005) Blood Urea Nitrogen (BUN) 32(H) 8 - 21 mg/dL 01/23/2025 7:17 AM [facility] Creatinine 1.3(H) 0.4 - 1.1 mg/dL 01/23/2025 7:17 AM [facility] eGFR 45(L) >59 01/23/2025 7:17 AM [facility] Comment:CKD-EPI (2020) in mL /min/1.73 sq meters. Sodium 142 136 - 145 mmol/L 01/23/2025 7:17 AM [facility] Potassium 3.8 3.4 - 5.3 mmol/L 01/23/2025 7:17 AM [facility] Chloride 100 98 - 107 mmol/L 01/23/2025 7:17 AM [facility] CO2 27 22 - 33 mmol/L 01/23/2025 7:17 AM [facility] Anion Gap 15 7 - 17 01/23/2025 7:17 AM [facility] Calcium 9.3 8.7 - 10.5 mg/dL 01/23/2025 7:17 AM [facility] BUN/Creatinine Ratio 25 10.0 - 25.0 Ratio 01/23/2025 7:17 AM [facility] Blood Blood specimen / Unknown 01/23/2025 6:11 AM EDT 01/23/2025 6:44 AM EDT Brittany Sheehan MD LAB BLOOD ORDERABLES Final Res ult [address] [address], [address] [address] * (ABNORMAL) COMPLETE BLOOD COUNT, WITHOUT DIFFERENTIAL (01/22/2025 8:02 AM EDT) Only the most recent of3 resultswithin the time period is included. White Blood Cell Count 6.8 4.0 - 11.0 Thou/uL 01/22/2025 8:38 AM [facility] Platelet Count 257 150 - 450 Thou/uL 01/22/2025 8:38 AM [facility] Hemoglobin 12.4 11.7 - 15.7 g/dL 01/22/2025 8:38 AM [facility] Hematocrit 38.1 35.0 - 47.0 % 01/22/2025 8:38 AM [facility] Red Blood Cell Count 4.01 4.00 - 5.40 Mil/uL 01/22/2025 8:38 AM [facility] MCV 95 80 - 100 fL 01/22/2025 8:38 AM [facility] MCH 30.9 27.0 - 31.0 pg 01/22/2025 8:38 AM [facility] MCHC 32.5 30.0 - 36.0 g/dL 01/22/2025 8:38 AM T [facility] RDW 14.7(H) 11.5 - 14.5 % 01/22/2025 8:38 AM T [facility] MPV 10.0 7.5 - 12.5 fL 01/22/2025 8:38 AM T [facility] Blood Blood specimen / Unknown 01/22/2025 8:02 AM EDT 01/22/2025 8:27 AM EDT us Brittany Sheehan MD LAB BLOOD ORDERABLES Final Res ult [address] [address], [address] [address] * Heparin Assay (Anti Xa) (01/20/2025 5:04 PM EDT) Only the most recent of8 resultswithin the time period is included. Anti Xa 0.75 IU/mL 01/20/2025 6:13 PM EDT [facility] Comment: (NOTE) Heparin Thromboembolic/Standard/Full Dose Protocol: Therapeutic Range: ? Age 18+: ? 0.30 - 0.70 IU/mL ? Age 0 - 17: ?? 0.35 - 0.70 IU/mL ? Heparin Cardiac/Low Dose Protocol: ? Therapeutic Range: ? 0.30 - 0.50 IU/mL ? Low Molecular Weight Heparin: ? Therapeutic Range: ? Age 18+: ?? 0.50 - 1.09 IU/mL for twice daily dosing (or adjusted to daily for poor renal function) ? Age 18+: ?? 1.00 - 2.00 ??IU/mL for once daily dosing ? Age 0-17: ??0.50 - 1.00 IU/mL Anticoagulant IV HEPARIN, UNFRACTIONATED 01/20/2025 11:23 AM EDT [facility] Blood Blood specimen / Unknown 01/20/2025 5:04 PM EDT 01/20/2025 5:59 PM EDT us Levi Perrin PA-C LAB BLOOD ORDERABLES Final Re sult Performing Organization Address City/State/[facility] Co de Phone Number [address] [address], [address] [address] * CC CORANGIO +LV+L/R CATH (01/20/2025 3:30 PM EDT) Anatomical Region Laterality Modality Radiographic Corinne ging Narrative 01/20/2025 3:45 PM EDT Table formatting from the original result was not included. Images from the original result were not included. [facility] Heart & Vascular [place] at [facility] - Cardiac Catheterization Laboratory PATIENT DEMOGRAPHIC INFORMATION Name: Karol OLIVO: 1955 69 y.o. Sex: female Gender: female Procedure Date: 01/20/2025 PROCEDURE DETAILS Talend Etl Developer: Geovanni Howell MD Fellow: None Cemetery Warden(s): none Indications for Procedure: Heart failure Referring Physician: Vinicio Bedolla PCP: Kenisha Ozuna MD Procedure(s): Procedures: ??* CORONARY ANGIO W/LV+LT/RT CATH CONCLUSIONS/RECOMMENDATIONS No evidence of angiographically significant coronary artery disease. 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 Normal cardiac output and cardiac index Return to medical floor PROCEDURE FINDINGS Tracings available in [email or web address] log report Findings ?? Diagnostic ??Dominance: Right Left Main 0% Left main coronary artery is a large-caliber vessel, it arises from left coronary cusp, it gives rise to left main descending artery and left circumflex coronary artery. ??It is free of angiographically significant coronary artery disease. Left Anterior Descending Proximal 0%, mid 0%, distal 0%. Left main descending artery is a large-caliber vessel arises from left main coronary artery, gives rise to moderate caliber first diagonal branch which has proximal mild stenosis. ??Left main descending artery is free of angiographically significant coronary artery disease. Left Circumflex Proximal 0%, mid 0%, distal 0%. Left circumflex coronary artery is a moderate caliber vessel, it arises from left main coronary artery, it gives rise to two small caliber obtuse marginal branches and then continues to give rise to moderate caliber third obtuse marginal branch and then continues to give rise to. ?? Remainder branch. ??It is free of angiographically significant coronary artery disease. Right Coronary Artery Proximal 0%, mid 0%, distal 0%. Right coronary artery is a large-caliber vessel, it arises from right coronary cusp, it gives rise to posterolateral posterior descending branches. ??It is free of angiographically significant coronary artery disease. Pressures Site ?? RA 15 mmHg/14 mmHg (11 mmHg) RV 56 mmHg/4 mmHg 12 mmHg PA 54 mmHg/21 mmHg (36 mmHg) PCW 21 mmHg/18 mmHg (20 mmHg) LV 123 mmHg/4 mmHg 20 mmHg AO 102 mmHg/65 mmHg (82 mmHg) O2 Sats ?? RA 65.6 % PA 64.2 % AO 93.8 % Mean Gradient Peak Valve Area Aortic (Domo) 0 mmHg 0 mmHg ?? Aortic 0 mmHg 0 mmHg ?? Cardiac Output/Resistances/Shunts: CO = 5 L/min ; CI = 2.9 L/min/m?? SVR = 1154.5 PVR = 253 CLINICAL HISTORY Patient is a 69-year-old female with past medical history of DVT not on anticoagulation, hypertension, hyperlipidemia, obesity who initially presented to [facility] with chief complaint of chest pain with associated shortness of breath, patient was found to have elevated troponins, CT scan was negative for pulmonary embolism subsequently patient was transferred to [facility] for cardiac catheterization. Patient was found to have elevated proBNP and lactic acid patient was started on diuretic therapy echocardiography showed wall motion abnormalities in the anterior anterolateral wall patient presents for cardiac catheterization. PROCEDURE Informed consent was obtained; a procedural timeout was performed; the patient was prepped and draped in sterile fashion; Venous Access Site: Right brachial vein Arterial Access Site: Right radial artery Sheath Size: 6F ??x 2 Catheters used: JR4, JL3.5 ?? Comments: N/A Venous hemostasis: Manual pressure . Arterial Hemostasis: Compressive band. Complications: None Anesthesia: The procedure was performed under moderate conscious sedation by an independent trained observer (RN) and supervised by the under signed attending MD. See meds list. Sedation Time: ??Contrast Used: Med Administrations and Associated Flowsheet Values (last 24 hours) ?? Date/Time Action Medication Dose 01/20/25 1527 Given iohexol (OMNIPAQUE) 350 mg/mL injection 40 mL Estimated Blood Loss: 5 mL ?? Verbal Orders and Supervisory Attestation: As the attending physician, I verify I was present throughout the entire procedure and provided physician orders as documented in the specialty electronic documentation system. 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 Geovanni Howell MD [facility] Heart & Vascular [place] 01/20/2025 ??3:44 PM Coronary Findings Diagnostic Dominance: Right Left Main: 0% Left main coronary artery is a large-caliber vessel, it arises from left coronary cusp, it gives rise to left main descending artery and left circumflex coronary artery. It is free of angiographically significant coronary artery disease. Left Anterior Descending: Proximal 0%, mid 0%, distal 0%. Left main descending artery is a large-caliber vessel arises from left main coronary artery, gives rise to moderate caliber first diagonal branch which has proximal mild stenosis. Left main descending artery is free of angiographically significant coronary artery disease. Left Circumflex: Proximal 0%, mid 0%, distal 0%. Left circumflex coronary artery is a moderate caliber vessel, it arises from left main coronary artery, it gives rise to two small caliber obtuse marginal branches and then continues to give rise to moderate caliber third obtuse marginal branch and then continues to give rise to. Remainder branch. It is free of angiographically significant coronary artery disease. Right Coronary Artery: Proximal 0%, mid 0%, distal 0%. Right coronary artery is a large-caliber vessel, it arises from right coronary cusp, it gives rise to posterolateral posterior descending branches. It is free of angiographically significant coronary artery disease. Intervention No interventions have been documented. Cardiac Protocol CAD and heart failure Geovanni Howell MD CV CARDIAC CATH ORDERABLES Fin al Result * (ABNORMAL) POCT O2 Saturation (AVOX) (01/20/2025 3:17 PM EDT) Pathologist [facility] RA 65.6 60 - 75 % PA 64.2 60 - 75 % AO 93.8(A) 95 - 99 % Lot Number [id number] Md Physician Dermatologist Pass [place] Blood 01/20/2025 3:17 PM EDT Geovanni Howell MD POINT OF CARE TEST ORDERABLES Final Result * (ABNORMAL) proBNP, N-terminal (01/20/2025 7:55 AM EDT) Only the most recent of2 resultswithin the time period is included. Pathologist [facility] proBNP, N-terminal 12,481(H) <125 pg/mL 01/20/2025 10:36 AM EDT [facility] 01/20/2025 7:55 AM EDT 01/20/2025 8:37 AM EDT us Teresa Membreno PA-C LAB BLOOD ORDERCAROLIN maradiaga Result [facility] [address] [place] [address], [facility] [address] [place] [address] * Lipid Panel (AM) (01/20/2025 7:55 AM EDT) Cholesterol, Total 126 <200 mg/dL 2024 9:02 AM [facility] Triglycerides 117 <150 mg/dL 01/20/2025 9:02 AM [facility] Cholesterol, HDL 52 >39 mg/dL 01/21/20 9:02 AM [facility] Estimated LDL 51 <130 mg/dL 01/20/2025 9:02 AM [facility] Comment: NCEP Guidelines: ?< 100 mg/dL ??Optimal 100 - 129 mg/dL ??Near Optimal/Above Optimal 130 - 159 mg/dL ??Borderline High 160 - 189 mg/dL ??High ??>/= 190 mg/dL ??Very High Cholesterol/HDL Ratio 2.4 0.0 - 5.0 Ratio 01/20/2025 9:02 AM [facility] Comment: Relative Risk ? Ratio - Male ? Ratio - Female ?0.5 ?3.4 ?3.3 ?1.0 ?5.0 ?4.4 ?2.0 ?9.6 ?7.1 ?3.0 ? 23.4 ? 11.0 Blood Blood specimen / Unknown 01/20/2025 7:55 AM EDT 01/20/2025 8:37 AM EDT us Teresa Membreno PA-C LAB BLOOD ORDERABLES Liz hiren Result [facility] [address] [place] [address], [facility] [address] [place] [address] * ECG 12 lead (01/19/2025 9:09 AM EDT) Only the most recent of4 resultswithin the time period is included. Systolic BP 137 mmHg EKG [facility] Diastolic BP 58 mmHg EKG [facility] Ventricular rate 65 BPM EKG [facility] Atrial rate 65 BPM EKG [facility] P-R interval 128 ms EKG [facility] QRS duration 72 ms EKG [facility] Q-T interval 434 ms EKG [facility] QTC calculation (Bazett) 451 ms EKG [facility] P axis 28 degrees EKG [facility] R axis 63 degrees EKG [facility] T axis 110 degrees EKG [facility] 01/19/2025 9:09 AM EDT Narrative EKG [facility] - 01/19/2025 9:54 AM EDT Normal sinus rhythm with sinus arrhythmia Low voltage QRS Borderline ECG When compared with ECG of 19-Jan-2025 07:31, Sinus rhythm has replaced Atrial fibrillation Vent. rate has decreased by ??89 bpm Non-specific change in ST segment in Inferior leads Nonspecific T wave abnormality no longer evident in Inferior leads T wave inversion less evident in Lateral leads Confirmed by MD Batista John ([id number]) on 01/19/2025 9:53:56 AM Procedure Note Moy Batista MD - 01/19/2025 Normal sinus rhythm with sinus arrhythmia Low voltage QRS Borderline ECG When compared with ECG of 19-Jan-2025 07:31, Sinus rhythm has replaced Atrial fibrillation Vent. rate has decreased by 89 bpm Non-specific change in ST segment in Inferior leads Nonspecific T wave abnormality no longer evident in Inferior leads T wave inversion less evident in Lateral leads Confirmed by MD Batista John ([id number]) on 01/19/2025 9:53:56 AM us Moy Batista MD ECG ORDERABLES Final Result EKG [facility] * (ABNORMAL) Iron and Total Iron Binding Capacity (01/19/2025 8:00 AM EDT) Iron 21(L) 59 - 151 ug/dL 01/19/2025 9:48 AM EDT [facility] UIBC 151 112 - 346 ug/dL 01/19/2025 9:48 AM EDT [facility] Total Iron Binding Capacity 172 100 - 400 ug/dL 01/19/2025 9:48 AM EDT [facility] Iron Sat 12(L) 20 - 50 % 01/19/2025 9:48 AM EDT [facility] Blood Blood specimen / Unknown 01/19/2025 8:00 AM EDT 01/19/2025 9:04 AM EDT Vinicio Bedolla MD LAB BLOOD ORDERABLES Final Re sult Performing Organization Address [facility]/[place] [address], [place] [address] * Potassium (01/19/2025 8:00 AM EDT) Potassium 4.0 3.4 - 5.3 mmol/L 01/19/2025 9:48 AM EDT [facility] Blood Blood specimen / Unknown 01/19/2025 8:00 AM EDT 01/19/2025 9:04 AM EDT us Aarti Spears APRN LAB BLOOD ORDERABLES Final Result Performing Organization Address [facility]/[place] [address], [address] [address] * Folate Level (01/19/2025 8:00 AM EDT) Folate, Serum >20.0 >7.2 ng/mL 01/19/2025 10:12 AM EDT [facility] Comment:Specimen hemolyzed. Results may be artifactually elevated. Blood Blood specimen / Unknown 01/19/2025 8:00 AM EDT 01/19/2025 9:04 AM EDT Vinicio Bedolla MD LAB BLOOD ORDERABLES Final Re sult Performing Organization Address [facility] [place] [address], [place] [address] * Vitamin B12 (01/19/2025 8:00 AM EDT) Pathologist [facility] Vitamin B12 520 243 - 894 pg/mL 01/19/2025 9:48 AM EDT [facility] Blood Blood specimen / Unknown 01/19/2025 8:00 AM EDT 01/19/2025 9:04 AM EDT Vinicio Bedolla MD LAB BLOOD ORDERABLES Final Re sult Performing Organization Address [facility] [place] [address], [place] [address] * Hemoglobin A1C with Estimated Average Glucose (01/18/2025 11:46 PM EDT) Pathologist [facility] Hemoglobin A1C 5.3 <5.7 % 01/19/2025 12:38 PM EDT [facility] Comment: A1c% ? Interpretation 5.7 - 6.0 ?Increase risk of diabetes 6.1 - 6.4 ?Higher risk of diabetes > or = 6.5 ?? Consistent with diabetes Diabetes Care, 33(Supp 1):S1-S61, 2009 Estimated Average Glucose 105 mg/dL 01/19/2025 12:38 PM EDT [facility] Blood specimen / Unknown 01/18/2025 11:46 PM EDT 01/19/2025 12:18 AM EDT us Vinicio Bedolla MD LAB BLOOD ORDERABLES Final Re sult Performing Organization Address [facility] Co de Phone Number [address] [address], [address] [address] * Lactic Acid, Plasma (STAT) (01/18/2025 6:23 PM EDT) Only the most recent of3 resultswithin the time period is included. Lactic Acid 1.4 0.5 - 1.9 mmol/L 01/18/2025 7:09 PM EDT [facility] Blood Blood specimen / Unknown 01/18/2025 6:23 PM EDT 01/18/2025 6:42 PM EDT us Vinicio Bedolla MD LAB BLOOD ORDERABLES Final Re sult Performing Organization Address [facility] Co de Phone Number [address] [address], [address] [address] * XR Chest 1 view-Portable (01/18/2025 4:47 PM EDT) Anatomical Region Laterality Modality Chest Computed Radiogr aphy 01/18/2025 3:50 PM EDT Impressions 01/19/2025 9:45 AM EDT 1. ??Trace left pleural effusion with left basilar subsegmental atelectasis. 2. ??Minimal interstitial pulmonary edema. Narrative 01/19/2025 9:45 AM EDT EXAMINATION: XR CHEST CLINICAL INFORMATION: sepsis COMPARISON: January 18, 2025 TECHNIQUE: Frontal view of the chest was obtained. FINDINGS: Stable cardiac size. Trace left pleural effusion with left basilar subsegmental atelectasis. There is minimal interstitial pulmonary edema. No pneumothorax. Procedure Note Matthew Davis MD - 01/19/2025 EXAMINATION: XR CHEST CLINICAL INFORMATION: sepsis COMPARISON: January 18, 2025 TECHNIQUE: Frontal view of the chest was obtained. FINDINGS: Stable cardiac size. Trace left pleural effusion with left basilar subsegmental atelectasis. There is minimal interstitial pulmonary edema. No pneumothorax. IMPRESSION: 1. Trace left pleural effusion with left basilar subsegmental atelectasis. 2. Minimal interstitial pulmonary edema. Vinicio Bedolla MD IMG DIAGNOSTIC IMAGING ORDERA BLES Final Result * Influenza A/B, RSV, SARS-CoV-2 ESSIE Multiplex (FLUVID) (01/18/2025 4:43 PM EDT) Pathologist [facility] Influenza A Virus Not Detected Not Detected 01/18/2025 6:31 PM EDT [facility] Influenza B Virus Not Detected Not Detected 01/18/2025 6:31 PM EDT [facility] SARS-CoV-2 Not Detected Not Detected 01/18/2025 6:31 PM EDT [facility] Respiratory Syncytial Virus Not Detected Not Detected 01/18/2025 6:31 PM EDT [facility] Comment Negative results do not preclude SARS-CoV-2, Influenza or RSV infection and should not be used as the sole basis for treatment or other patient management decisions. 01/18/2025 6:31 PM EDT [facility] Swab, Nasopharyngeal Nasopharyngeal swab / Unknown 01/18/2025 4:43 PM EDT 01/18/2025 5:27 PM EDT Vinicio Bedolla MD MICROBIOLOGY - GENERAL ORDERA BLES Final Result [address] [address], [address] [address] * Urinalysis with Reflex to Microscopic (01/18/2025 4:43 PM EDT) Color Straw 01/18/2025 5:48 PM EDT [facility] Clarity Clear 01/18/2025 5:48 PM EDT [facility] Specific [place] 1.014 1.003 - 1.030 01/18/2025 5:48 PM EDT [facility] pH 6.0 5.0 - 8.0 01/18/2025 5:48 PM EDT [facility] Leukocyte Esterase Negative Negative 01/18/2025 5:48 PM EDT [facility] Nitrite Negative Negative 01/18/2025 5:48 PM EDT [facility] Protein Negative Negative 01/18/2025 5:48 PM EDT [facility] Glucose 0 0 - 99 mg/dL 01/18/2025 5:48 PM EDT [facility] Ketones Negative Negative 01/18/2025 5:48 PM EDT [facility] Blood Negative Negative 01/18/2025 5:48 PM EDT [facility] Bilirubin Negative Negative 01/18/2025 5:48 PM EDT [facility] WBC 0 0 - 4 per hpf 01/18/2025 5:48 PM EDT [facility] RBC 1 0 - 4 per hpf 01/18/2025 5:48 PM EDT [facility] Urine Urine specimen obtained by clean catch procedure / Unknown 01/18/2025 4:43 PM EDT 01/18/2025 5:31 PM EDT us Vinicio Bedolla MD URINE ORDERABLES Final Result Performing Organization Address City/[facility]/[place] [address], [place] [address] * Nasal MRSA Screen, PCR (01/18/2025 4:43 PM EDT) [facility] MRSA Result Not Detected Not Detected 7:03 PM EDT [facility] Comment:Performed by the Xpe rt MRSA NxG Assay Swab, Anterior Nares Specimen from nose / Unknown 01/18/2025 4:43 PM EDT 01/18/2025 5:30 PM EDT us Vinicio Bedolla MD MICROBIOLOGY - GENERAL ORDERA BLES Final Result Performing Organization Address [facility]/[place] [address], [place] [address] * ECHOCARDIOGRAM COMPREHENSIVE WITH CONTRAST (01/18/2025 4:39 PM EDT) IVS Mean (F:0.6-0.9, M:0.6-1.0) 0.9 cm IVS (F:0.6-0.9, M:0.6-1.0) 0.9 cm LVIDD Mean (F:3.8-5.2, M:4.2-5.8) 5.1 cm LVIDD (F:3.8-5.2, M:4.2-5.8) 5.1 cm LVIDS (F:2.2-3.5, M:2.5-4.0) 3.5 cm LVIDS (F:2.2-3.5, M:2.5-4.0) 3.5 cm LVOT diameter mean 2.1 cm LVOT diameter 2.1 cm PW Mean (F:0.6-0.9, M:0.6-1.0) 0.9 cm PW (F:0.6-0.9, M:0.6-1.0) 0.9 cm LV Diastolic Volume Mean 119.2 mL LV Diastolic Volume 119 mL LV Systolic Volume Mean 65.8 mL LV Systolic Volume 66 mL LVOT mn grad mean 1.9 mmHg LVOT mn grad 1.9 mmHg LVOT peak fer mean 0.9 m/s LVOT peak fer 0.9 m/s LVOT VTI MEAN 19.3 cm LVOT VTI 19.3 cm RVID d Mean 3.4 cm RVID d 3.4 cm LA volume Mean 108.4 mL LA volume 108.4 mL RA area Mean 13.3 cm2 RA area 13.3 cm2 RA 2D Volume 33.3 mL AV mean gradient mean 9.5 mmHg AV mean gradient 9.5 mmHg Ao peak fer mean 2.0 m/s Ao peak fer 2.0 m/s Ao VTI Mean 42.5 cm Ao VTI 42.5 cm MV Peak A-Wave Mean 58.1 cm/s MV Peak A-Wave 58.1 cm/s E wave decelartion time mean 172 ms E wave decelartion time 172 ms MV Peak E-Wave Mean 74.4 cm/s MV Peak E-Wave 74.4 cm/s MV E' Lateral Velocity Mean 10.82 cm/s MV E' Lateral Velocity 10.82 cm/s MV E' Septal Velocity Mean 8.29 cm/s MV E' Septal Velocity 8.29 cm/s Tapse Mean 2.1 cm Tapse 2.1 cm TR Peak Fer Mean 3.1 m/s TR Peak Fer 3.3 m/s Ascending aorta mean 2.5 cm Ascending aorta 2.5 cm Sinuses of Valsalva Mean 2.9 cm Sinuses of Valsalva 2.9 cm Heart Rate 68 bpm BP Systolic 110 mmHg BP Diastolic 59 mmHg Height 61.00 inches Weight 171.00 lbs LV Mass Index (F:43-95, M:49-115) 92.5 g/m2 LA Volume Index (16-34) 61.3 mL/m2 LV Diastolic Volume Index (F:29-61, M:35-75) 67.3 mL/m2 LV Systolic Volume Index (F:8-24, M:11-31) 37.3 mL/m2 E/E' ratio 6.88 AV peak gradient 16.0 mmHg LVOT stroke volume 67 mL LVOT area 3.5 cm2 E/A ratio 1.28 AV LVOT peak gradient 3.2 mmHg Dimensionless Index 0.45 SVI 37 mL/m2 AV area by cont VTI 1.6 cm2 Ascending aorta Index 1.4 cm/m2 Sinuses of Valsalva Index 1.6 cm/m2 Valve area - Index 0.9 cm2/m2 LV mass 163.6 g Escobar BP EF (55-75) 45 % E/E' Average 7.9 E/E' Septal 9.0 E/E' Lateral 6.9 LVOT SI 37.80 mL/m2 LV RWT 0.35 Left Ventricular Cardiac Index 2.6 L/min/m2 Left Ventricular Cardiac Output 4.5 L/min BSA 1.77 m2 TR Peak Gradient 44 mmHg LA Volume Index 18.8 mL/m2 Est. RA pres 3 mmHg RVSP 47 mmHg PASP 46.6 mmHg Anatomical Region Laterality Modality Ultrasound Narrative 01/18/2025 4:54 PM EDT ?Left ventricular systolic function is mildly decreased. The quantitative EF by 2D Escobar biplane is 45%. There is severe hypo to akinesis of the mid anterior, mid anterolateral, mid anteroseptal and mid inferolateral segments. Left atrial filling pressure is normal. ?Right ventricular systolic function is normal. ?There is mild aortic stenosis. The calculated valve area is 1.6 cm2, with a peak velocity of 2.0 m/s, a mean gradient of 9.5 mmHg, and a dimensionless index of ??0.45. ?There is mild to moderate tricuspid regurgitation. The estimated right ventricular systolic pressure is mildly elevated at 47 mmHg. ?There is no previous study for comparison in our system. Technical Details Definity contrast was used during the study. Overall the study quality was fair. The study was technically difficult due to patient's body habitus. Left Ventricle The left ventricle is mildly dilated. Wall thickness is normal. Left ventricular systolic function is mildly decreased. The quantitative EF by 2D Escobar biplane is 45%. There is severe hypo to akinesis of the mid anterior, mid anterolateral, mid anteroseptal and mid inferolateral segments. Left atrial filling pressure is normal. Right Ventricle The right ventricle is normal in size. Right ventricular systolic function is normal. Left Atrium The left atrial cavity is severely dilated. Right Atrium Right atrial size is normal. Based on IVC diameter and collapse, right atrial pressure is estimated to be normal (3 mmHg). Mitral Valve The mitral leaflets are mildly thickened. There is no mitral regurgitation. Tricuspid Valve The tricuspid valve is structurally normal. There is mild to moderate tricuspid regurgitation. The estimated right ventricular systolic pressure is mildly elevated at 47 mmHg. Aortic Valve The aortic valve leaflets are mildly thickened.The aortic valve leaflets are mildly calcified. There is mild aortic stenosis. The calculated valve area is 1.6 cm2, with a peak velocity of 2.0 m/s, a mean gradient of 9.5 mmHg, and a dimensionless index of 0.45. Pulmonic Valve The pulmonic valve was not well visualized. There is trace pulmonic regurgitation. Ascending Aorta The aortic root and ascending aorta are normal in dimension. Pericardium There is no pericardial effusion. Prior Study There is no previous study for comparison in our system. us Vinicio Bedolla MD CV ECHO ORDERABLES Final Resu lt * POCT Glucose, Fingerstick (01/18/2025 3:44 PM EDT) POC Glucose 96 65 - 99 mg/dL 01/18/2025 3:48 PM EDT Blood specimen / Unknown 01/18/2025 3:44 PM EDT 01/18/2025 3:48 PM EDT us Monica Agrawal MD POINT OF CARE TEST [place] Final Result [facility] See Below * (ABNORMAL) High Sensitivity Troponin T (01/18/2025 12:33 PM EDT) Only the most recent of2 resultswithin the time period is included. High Sensitivity Troponin T 542(HH) <15 ng/L 01/18/2025 1:36 PM EDT [facility] Comment:Recurring Critical R esult. Previously phoned. Delta (Change) 105(H) <3 01/18/2025 1:36 PM EDT [facility] Comment:Decreased 01/18/2025 12:3 3 PM EDT 01/18/2025 1:03 PM EDT Deena Guajardo MD LAB BLOOD ORDERABL ES Final Result Performing Organization Address [facility] Co de Phone Number [address] [address], [address] [address] * CT Chest Archive for Reference Only (01/18/2025 10:47 AM EDT) Narrative [facility] - 01/18/2025 10:47 AM EDT This study has been auto finalized and does not contain a result. File Room Provider IMG DIGITIZE FILMS Final Resu lt Performing Organization Address City/[facility]/ZIP Co de Phone Number [facility] [phone] * CR Chest Archive for Reference only (01/18/2025 10:47 AM EDT) Narrative [facility] - 01/18/2025 10:47 AM EDT This study has been auto finalized and does not contain a result. us File Room Provider IMG DIGITIZE FILMS Final Resu lt EDWARDO [phone] * Blood Culture (01/18/2025 10:39 AM EDT) Culture Sterile after 5 days 01/23/2025 7:10 AM EDT [facility] Blood Blood specimen / Unknown 01/18/2025 10:39 AM EDT 01/18/2025 11:07 AM EDT Comment:Blood us Deena Guajardo MD LAB BLOOD ORDERABL ES Final Result Performing Organization Address City/[facility]/ZIP Co de Phone Number [facility] [address] [place] [address], [place] * (ABNORMAL) Complete Blood Count, with Differential (01/18/2025 10:39 AM EDT) [facility] Signature White Blood Cell Count 20.1(H) 4.0 - 11.0 Thou/uL 01/18/2025 11:26 AM [facility] Platelet Count 219 150 - 450 Thou/uL 01/18/2025 11:26 AM [facility] Hemoglobin 11.1(L) 11.7 - 15.7 g/dL 01/18/2025 11:26 AM [facility] Hematocrit 37.2 35.0 - 47.0 % 01/18/2025 11:26 AM [facility] Red Blood Cell Count 3.64(L) 4.00 - 5.40 Mil/uL 01/18/2025 11:26 AM [facility] MCV 102(H) 80 - 100 fL 01/18/2025 11:26 AM [facility] MCH 30.5 27.0 - 31.0 pg 01/18/2025 11:26 AM [facility] MCHC 29.8(L) 30.0 - 36.0 g/dL 01/18/2025 11:26 AM [facility] RDW 15.0(H) 11.5 - 14.5 % 01/18/2025 11:26 AM [facility] MPV 10.1 7.5 - 12.5 fL 01/18/2025 11:26 AM [facility] Neutrophils Auto 90.1 % 01/19/20 11:26 AM [facility] Immature Granulocytes 0.6 % 01/18/2025 11:26 AM [facility] Lymphocytes Auto 3.8 % 01/19/20 11:26 AM [facility] Monocytes Auto 5.2 % 01/18/2025 11:26 AM [facility] Eosinophils Auto 0.0 % 01/19/20 11:26 AM [facility] Basophils Auto 0.3 % 01/18/2025 11:26 AM [facility] Abs Neutrophils Auto 18.10(H) 2.00 - 7.50 Thou/uL 01/18/2025 11:26 AM [facility] Abs Immature Granulocytes 0.12(H) 0.00 - 0.10 Thou/uL 01/18/2025 11:26 AM [facility] Abs Lymphocytes Auto 0.77(L) 1.50 - 4.50 Thou/uL 01/18/2025 11:26 AM [facility] Abs Monocytes Auto 1.05 0.20 - 1.50 Thou/uL 01/18/2025 11:26 AM [facility] Abs Eosinophils Auto 0.00 0.00 - 0.70 Thou/uL 01/18/2025 11:26 AM [facility] Abs Basophils Auto 0.07 0.00 - 0.20 Thou/uL 01/18/2025 11:26 AM [facility] Blood Blood specimen / Unknown 01/18/2025 10:39 AM EDT 01/18/2025 11:17 AM EDT Deena Guajardo MD LAB BLOOD ORDERABL ES Final Result [address] [address], [address] [address] * (ABNORMAL) Partial Thromboplastin Time (PTT) (01/18/2025 10:39 AM EDT) Anticoagulant IV HEPARIN, UNFRACTIONATED 01/18/2025 10:11 AM EDT [facility] Partial Thromboplastin Time (PTT) 67(H) 25 - 36 seconds 01/18/2025 11:39 AM T [facility] Blood Blood specimen / Unknown 01/18/2025 10:39 AM EDT 01/18/2025 11:17 AM EDT Deena Guajardo MD LAB BLOOD [place] [address], [place] [address] * Protime-INR (01/18/2025 10:39 AM EDT) Anticoagulant IV HEPARIN, UNFRACTIONATED 01/18/2025 10:11 AM [facility] Prothrombin Time (PT) 12.5 10.0 - 13.5 seconds 01/18/2025 11:39 AM [facility] INR 1.1 01/18/2025 11:39 AM [facility] Comment:INR Therapeutic Rang es: Standard dose anticoagulant 2.0 to 3.0, High dose anticoagulant 2.5-3.5. Blood Blood specimen / Unknown 01/18/2025 10:39 AM EDT 01/18/2025 11:17 AM EDT Deena Guajardo MD LAB BLOOD ORDERABL ES Final Result [address] [address], [address] [address] * (ABNORMAL) Comprehensive Metabolic Panel (01/18/2025 10:39 AM EDT) Glucose 112(H) 65 - 99 mg/dL 01/18/2025 12:09 PM T [facility] Comment:Fasting: <100 mg/dL, Non-Fasting: <200 mg/dL (ADA 2005) Blood Urea Nitrogen (BUN) 25(H) 8 - 21 mg/dL 01/18/2025 12:09 PM [facility] Creatinine 0.9 0.4 - 1.1 mg/dL 01/18/2025 12:09 PM [facility] eGFR 69 >59 01/18/2025 12:09 PM [facility] Comment:CKD-EPI (2020) in mL /min/1.73 sq meters. Sodium 141 136 - 145 mmol/L 01/18/2025 12:09 PM [facility] Potassium 3.8 3.4 - 5.3 mmol/L 01/18/2025 12:09 PM [facility] Chloride 106 98 - 107 mmol/L 01/18/2025 12:09 PM [facility] CO2 19(L) 22 - 33 mmol/L 01/18/2025 12:09 PM [facility] Calcium 8.8 8.7 - 10.5 mg/dL 01/18/2025 12:09 PM [facility] Alkaline Phosphatase 110 32 - 122 U/L 01/18/2025 12:09 PM [facility] Aspartate Aminotrans (AST) 46 10 - 50 U/L 01/18/2025 12:09 PM [facility] Alanine Aminotrans (ALT) 21 10 - 50 U/L 01/18/2025 12:09 PM [facility] Bilirubin, Total 0.5 0.2 - 1.0 mg/dL 01/18/2025 12:09 PM [facility] Protein, Total 6.6 6.3 - 8.3 g/dL 01/18/2025 12:09 PM [facility] Albumin 3.5 3.4 - 4.8 g/dL 01/18/2025 12:09 PM [facility] BUN/Creatinine Ratio 28(H) 10.0 - 25.0 Ratio 01/18/2025 12:09 PM [facility] Globulin 3.1 1.5 - 3.9 g/dL 01/18/2025 12:09 PM [facility] Albumin/Globulin Ratio 1.1 1.0 - 3.0 Ratio 01/18/2025 12:09 PM [facility] Anion Gap 16 7 - 17 01/18/2025 12:09 PM EDT [facility] Blood Blood specimen / Unknown 01/18/2025 10:39 AM EDT 01/18/2025 11:17 AM EDT Deena Guajardo MD LAB BLOOD ORDERABL ES Final Result [facility] [address] [place] [address], [facility] [address] [place] [address] from Last 3 Months Insurance [facility] MEDICARE PART A & B MEDICARE PART A & B [facility] Advance Directives * Full Code (Latest Code Status on File) Date Activated Date Inactivated Comments 01/18/2025 2:04 PM Care Teams 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
--- OUTSIDE RECORDS SUMMARY | 2025-01-26 12:05 | XMS_ITS | Clinical Summary ---
Author Organization [facility] Facility Address [address] [place] [address] Care Team Providers Care Aircraft Refueler Name Role Phone Deb Soliman MD Primary Care Provider [phone] Medications metoprolol tartrate (LOPRESSOR) 50 MG tablet [...] age to complete this topic Care Teams Aircraft Refueler Relationship Specialty Start Date End Date Deb Soliman MD [address] [place] [address] [address] [place] [address] PCP - General 09/19/20
--- OUTSIDE RECORDS SUMMARY | 2025-01-26 12:06 | XMS_ITS | Encounter Summary ---
Author Organization [facility] Address [address] [place] [address] Care Team Providers Care Novelty Maker Name Role Phone Kenisha Ozuna MD Primary Care Provider [phone] Reason for Referral * Cardiology (Routine) - Authorized Specialty Diagnoses / Procedures Referred By Contac t Referred To Contact Cardiology Diagnoses Cardiogenic shock (HCC) Brittany Sheehan MD [address] [place] [id number] Phone: tel: fax: [facility] [place] [address] [facility] [address] [place] [address] Phone: tel: fax: Referral ID Status Reason Start Date Expiration Date V isits Requested Visits Authorized [id number] Authorized Consult 01/22/2025 01/23/2026 1 1 Scheduling Instructions DIscharge home this weekend Reason for Visit * Reason Comments Chest Pain * Auth/Cert Specialty Diagnoses / Procedures Referred By Contac t Referred To Contact Diagnoses Cardiogenic shock (HCC) Procedures N/A Referral ID Status Reason Start Date Expiration Date Visits Re quested Visits Authorized [id number] 1 1 Encounter Details Date Type Department Care Team (Late st Contact Info) Description 01/18/2025 9:48 AM EDT - 01/23/2025 5:13 PM EDT Hospital Encounter [place] [id number] [address] [place] [address] Monica Agrawal MD [address] [place] [address] [address] [place] [address] Vinicio Bedolla MD [address] [place] [id number] Vandana Barnes MD [address] [place] [address] Brittany Sheehan MD [address] [place] [id number] Anupama Garner MD [address] [place] [id number] Diane Tipton MD [address] [place] [id number] Johnny Edwards MD [address] [place] [id number] Dante Ferrara MD [address] [place] [id number] Cardiogenic shock (HCC) (Primary Dx); NSTEMI (non-ST elevated myocardial infarction) (HCC); Pneumonia; Acute decompensated heart failure (HCC); Atrial fibrillation (HCC) Discharge Disposition: Home or Self Care Social History Tobacco Use Types Packs/Day Years Used Date Smoking Tobacco: Never Smokeless Tobacco: Never Tobacco Cessation:Counseling Given: Not Answered Alcohol Use Standard Drinks/Week Comments Not Currently 0 (1 standard drink = 0.6 oz pur e alcohol) [facility] Utilities Answer Date Recorded In the past 12 months has [employer] gas, oil, or water [employer] threatened to shut off services in your [...] any time in the past 12 m [facility], were you homeless or living in a m[facility] (including now)? No 01/19/2025 Comments Unknown Sex and Gender Information Value Date Recorded Sex Assigned at Female 01/18/2025 10:27 AM EDT Legal Sex Female 9:33 AM EDT Gender Identity Female 01/18/2025 10:27 AM EDT Sexual Orientation Heterosexual (straight) 01/18 10:27 AM EDT documented as of this encounter Last Filed Vital Signs Vital Sign Reading [...] Mass Index 29.2 01/19/2025 7:00 AM EDT documented in this encounter Functional Status * Audit-C Score Answer Date of Assessment Author 0 01/19/2025 3:58 PM EDT Jose De Jesus Amezquita RN * Question Answer Date of Assessment Author Q1: How often do you have a drink containing alcohol? Never 01/19/2025 3:58 PM EDT Mickie Amezquita RN Q2: How many drinks containing alcohol do you have on a typical day when you are drinking? Patient does not drink 01/19/2025 3:58 PM EDT Mickie Amezquita RN Q3: How often do you have six or more drinks on one occasion? Never 01/19/2025 3:58 PM EDT Mickie Amezquita RN documented as of this encounter Discharge Summaries * Dante Ferrara MD - 01/23/2025 5:13 PM EDT Inpatient Discharge Summary [facility] Patient Demographics KAROL FRIAS 1955 69 y.o. Allergies[1] Admission Date: 01/18/2025 Admitting Provider: Vinicio Bedolla MD Discharge Provider: Brittany Sheehan MD Primary Care Physician at Discharge: Kenisha Ozuna MD Discharge Date: 01/23/2025 Primary Discharge Diagnosis Principal Problem (Resolved): Cardiogenic shock (HCC) (POA: Yes) Active Problems: Pulmonary edema (POA: Unknown) Type 1 non-ST elevation myocardial infarction (NSTEMI) (HCC) (POA: Unknown) Atrial fibrillation with RVR (HCC) (POA: Unknown) Systolic murmur (POA: Unknown) GERD (gastroesophageal reflux disease) (POA: Unknown) Iron deficiency anemia (POA: Unknown) Bacteremia due to Gram-positive bacteria (POA: Unknown) Diarrhea (POA: Unknown) Resolved Problems: Metabolic acidosis (POA: Unknown) Lactic acidosis (POA: Unknown) Leukocytosis (POA: Unknown) New cardiomyopathy, 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 Mild Aortic stenosis Mild JÚNIOR Discharge Disposition Home Or Self Care Code Status Procedures Full Code Discharge Medications Medication List TAKE these medications Common Name allopurinol 100 mg tablet ZYLOPRIM apixaban 5 MG tablet 5 mg, Oral, Every 12 hours scheduled ELIQUIS atorvastatin 20 MG tablet LIPITOR B-Complex Caps furosemide 20 MG tablet 40 mg, Oral, Every morning LASIX leflunomide 10 MG tablet ARAVA metoPROLOL SUCCINATE 50 MG 24 hr tablet 50 mg, Oral, Every morning TOPROL-XL PANTOprazole 40 MG EC tablet PROTONIX silver sulfADIAZINE 1 % cream SILVADENE Vitamin D3 50 MCG (1999 UT) tablet CHOLECALCIFEROL Discharge instructions Basic Metabolic Panel Standing Status: Future Number of Occurrences: 1 Standing Exp. Date: 01/23/26 Order Comments: Pls fax results to PCP Release to Patient Immediate [1] AMB Referral to Heart Failure Clinic/ Bridge Infusion Referral Priority: Routine Referral Type: Cardiology Referral Reason: Consult Number of Visits Requested: 1 Activity as tolerated Do not drive while taking narcotics DISCHARGE DIET Diet Restricted Diet Diet Restrictions Cardiac (heart healthy) Diet Restrictions Low Sodium Call your doctor for: The same symptoms that brought you to the hospital Call your doctor for: Significant change in your bowel pattern Call your doctor for: Shortness of breath Call your doctor for: Severe pain not controlled by your medication Call your doctor for: Persistent nausea or vomiting Call your doctor for: Green or brown sputum Call your doctor for: Inability to pass urine or blood in urine Call your doctor for: Fever or chills Call your doctor for: Black or tarry stools Call your doctor for: Abdominal pain/constipation or diarrhea Future Appointments Date Time Provider Department Center 01/29/2025 11:00 AM CHAIR 1, [facility] None [facility] [address] [facility] [address] [facility] [address] Kenisha Ozuna MD [address] [place] [phone] Active Issues Requiring Follow-up -- repeat BMP within a week -- f/u with Cardiology as scheduled -- f/u with PCP in a week Incidental hospital findings: Test Results Pending at Discharge Physical Exam at Discharge Pleasant lady in no distress NC Chest: CTA B/L CVS: S1S2 regular Abd; soft, NT, BS normal Ext: no edema Discharge Condition: stable Last Vitals: Pulse:67,Resp:18,BP:(!) 139/95,SpO2:96 %,Weight: 70.1 kg (154 lb 8.7 oz) Temp Last 24 hrs: No data recorded Details of Hospital Stay Hospital Course 69-year-old female with a past medical history of hypertension, history of hyperlipidemia, history of eczema on short course of Prednisone recently, history of gout, history of DVT, history of CHF, history of varicose veins status post rotator cuff surgery, status post spine surgery, 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 Patient presented with acute shortness of breath found to be in a fib with RVR and significant NSTEMI with trops 2K-> 4K, given heparin load and ASA 162, transferred to [facility] for additional care.EKG here NSR without ischemic changes. HS 647 -> 542. Lactic acidosis 4.4 -> 2.7 -> 1.4. proBNP 12,000. Echo showed LFEV 45%, severe hypo to akinesis of mid anterior, midanterolateral, mid an teroseptal, and mid inelateral segments, RV normal; mild aortic stenosis, mild to moderate TR, mildly elevated RV systolic pressure at 47. LVIDD 5.1; LVOT VTE 19.3. Patient was continued on heparin gtt, given aspirin, and atorvastatin, seen by interventional cards, plan for LHC during this admission, likely 01/20. Importantly, [facility] called with results that patient's blood cultures from OSH are growing gram positive cocci in chains, she was continued on IV Ceftriaxone and ID was consulted. Shock state likely multifactorial with possible septic and cardiogenic components. Course complicated by a fib with RVR, requiring IV lopressor x2 and oral metoprolol for conversion to NSR. Had significant conversion pause, however was asymptomatic and vitally stable. OK for transfer for floors with plan for cardiology following and ischemic evaluation with LHC during admission. 01/20L/R HC: No significant coronary artery disease. RA: 11, PA: 54/21 (36), PCW: 20. CI: 2.9, CO: 5, SVR 1154 01/18 ECHO: LVEF-45% severe hypo-akinesis mid anterior, mid anterior lateral, mid anterior septal, mid inferior lateral segments. Normal RV size and function. Mild aortic stenosis, mild-mod TR. ID discontinued Ceftriaxone. Pt was treated with GDMT including Lasix, Losartan, Jardiance, aldactone. Pt developed mild JÚNIOR andhypotension. Treated with gentle hydration. Will be discharged on Lasix 40 and Toprol. Recommended repeat BMP within a week and closer outpt f/u with PCP and Cardiology. Consults: ID, Cardiology, Interventional Cardiology Procedures: Surgical/Procedural Cases on this Admission Case IDs Date Procedure Surgeon Location Status [id number] 01/20/25 CORONARY ANGIO W/LV+LT/RT CATH Geovanni Howell MD POLICE JUDGE Comp Diagnostic Studies: {diagnostics:[id number] CARDIAC CATHETERIZATION Result Date: 01/20/2025 Table formatting from the original result was not included. Images from the original result were not included. [facility] - Cardiac Catheterization Laboratory PATIENT DEMOGRAPHIC INFORMATION Name: Karol Frias : 1955 69 y.o. Sex: female Gender: female Procedure Date: 01/20/2025 PROCEDURE DETAILS Tire Debeader: Geovanni Howell MD Fellow: None Marketing Research Analyst(s): none Indications for Procedure: Heart failure Referring Physician: Vinicio Bedolla PCP: Kenisha Ozuna MD Procedure(s): Procedures: * CORONARY ANGIO W/LV+LT/RT CATH C ONCLUSIONS/RECOMMENDATIONS No evidence of angiographically significant coronary artery disease. 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 Normal cardiac output and cardiac index Return to medical floor PROCEDURE FINDINGS Trac[facility] available [facility] Findings Diagnostic Dominance: Right Left Main 0% Left main coronary [...] Left main descending artery is free of evelio ographically significant coronary artery disease. Left Circumflex Proximal 0%, mid 0%, distal 0%. Left circumflex coronary artery is a moderate caliber vessel, it arises from left main coronary artery, it gives rise to two small caliber obtuse marginal branches and then continues to give rise to moderate caliber third obtuse marginal branch and then continues to give rise to. Remainder branch. Itis free of angiographically significant coronary artery disease. Right Coronary Artery Proximal 0%,mid 0%, distal 0%. Right coronary artery is a large-caliber vessel, it arises from right coronary cusp, it gives rise to posterolateral posterior descending branches. It is free of angiographically si gnificant coronary artery disease. Pressures Site RA 15 mmHg/14 mmHg (11 mmHg) RV 56 mmHg/4 mmHg 12mmHg PA 54 mmHg/21 mmHg (36 mmHg) PCW 21 mmHg/18 mmHg (20 mmHg) LV 123 mmHg/4 mmHg 20 mmHg AO 102 mmHg/65 mmHg (82 mmHg) O2 Sats RA 65.6 % PA 64.2 % AO 93.8 % Mean Gradient Peak Valve Area Aortic (Domo) 0 mmHg 0 mmHg Aortic 0 mmHg 0 mmHg Cardiac Output/Resistances/Shunts: CO = 5 L/min ; CI = 2.9 L/min/m?? SVR = 1154.5 PVR = 253 CLINICAL HISTORY Patient is a 69-year-old female with past medical history of DVT not on anticoagulation, hypertension, hyperlipidemia, obesity who initially presented to [facility] with chief complaint of chest pain with associated shortness of breath, patient was found to have elevated troponins, CT scan was negative for pulmonary embolism subsequently patient was transferred to [facility] for cardiac catheterization. Patient was found to have elevated proBNP and lactic acid patient was started on diuretic therapy echocardiography showed wallmotion abnormalities in the anterior anterolateral wall patient presents for cardiac catheterization. PROCEDURE Informed consent was obtained; a procedural timeout was performed; the patient was prepped and draped in sterile fashion; Venous Access Site: Right brachial vein Arterial Access Site: Right radial artery Sheath Size: 6F x 2 Catheters used: JR4, JL3.5 Comments: N/A Venous hemostasis: Manual pressure . Arterial Hemostasis: Compressive band. Complications: None Anesthesia: The procedurewas performed under moderate conscious sedation by an independent trained observer (RN) and supervised by the under signed attending MD. See meds list. Sedation Time: Contrast Used: Med Administrations and Associated Flowsheet Values (last 24 hours) Date/Time Action Medication Dose 01/20/25 1527 Given iohexol (OMNIPAQUE) 350 mg/mL injection 40 mL Estimated Blood Loss: 5 mL Verbal Orders and Supervisory Attestation: As the attending physician, I verify I was present throughout the entire procedure and provided physician orders as documented in the specialty electronic documentation system. Furthermore I directly supervised all non physicians providers who assisted me during the procedure Tiera accept delegation of supervisory responsibility for all post procedure patient care activity related to this patient that I request from a [facility] PA/RESIDENTIAL APPRAISER/fellow/staff member. Geovanni Howell MD [facility] 01/20/2025 3:44 PM XR Chest 1 view-Portable Result Date: 01/19/2025 EXAMINATION: XR CHEST CLINICAL INFORMATION: sepsis COMPARISON: January 18, 2025 TECHNIQUE: Frontal viewof the chest was obtained. FINDINGS: Stable cardiac size. Trace left pleural effusion with left basilar subsegmental atelectasis. There is minimal interstitial pulmonary edema. No pneumothorax. 1. Trace left pleural effusion with left basilar subsegmental atelectasis. 2. Minimal interstitial pulmonary edema. [facility] CARDIAC POC ULTRASOUND Result Date: 01/18/2025 PROCEDURE: Limited ULTRASOUND - Cardiac scan Limited Transthoracic Echocardiography Indication/Medical necessity: Chest Pain A parasternal long view of the heart was obtained and demonstrated: HYPOKINESIS and NO PERICARDIAL EFFUSION A Parasternal short view of the heart was obtained and demonstrated: HYPOKINESIS and NO PERICARDIAL EFFUSION An Apical 4-chamber view of the heart was obtained and demonstrated:HYPOKINESIS and NO PERICARDIAL EFFUSION Overall Findings/Impression: HYPOKINETIC CONTRACTILITY Further Imaging: clinical evidence requires further imaging Other Findings/Comments: Pathogenic B-lines in bilateral lung mason Medical Officer: These images were recorded for it quality assurance analyst, retrievability, and archival purposes. Limitations/Complications of the procedure: None Performed By: Mamadou Rios MD Echocardiogram (TTE) Comprehensive (Contrast PRN) Result Date: 01/18/2025 Left ventricular systolic function is mildly decreased. The quantitative EF by 2D Escobar biplane is 45%. There is severe hypo to akinesis of the mid anterior, mid anterolateral, mid anteroseptal andmid inferolateral segments. Left atrial filling pressure is normal. Right ventricular systolic function is normal. There is mild aortic stenosis. The calculated valve area is 1.6 cm2, with a peak [place] of 2.0 m/s, a mean gradient of 9.5 mmHg, and a dimensionless index of 0.45. There is mild to moderate tricuspid regurgitation. The estimated right ventricular systolic pressure is mildly elevated at 47 mmHg. There is no previous study for comparison in our system. CT Chest Archive for Reference Only Result Date: 01/18/2025 This study has been auto finalized and does not contain a result. CR Chest Archive for Reference only Result Date: 01/18/2025 This study has been auto finalized and does not contain a result. Results from last 7 days Lab Units 01/22/25 0802 01/20/25 0755 01/18/25 2346 WHITE BLOOD CELL COUNT Thou/uL 6.8 6.9 10.9 HEMOGLOBIN g/dL 12.4 10.8* 10.0* HEMATOCRIT % 38.1 34.2* 31.4* PLATELET COUNT Thou/uL 257 178 192 Results from last 7 days Lab Units 01/23/25 0611 01/22/25 0802 01/21/25 0819 SODIUM mmol/L 142 143 140 POTASSIUM mmol/L 3.8 4.1 3.7 CHLORIDE mmol/L 100 101 103 CO2 mmol/L 27 27 25 BUN mg/dL 32* 25* 16 CREATININE mg/dL 1.3* 1.0 0.8 CALCIUM mg/dL 9.3 10.1 9.5 GLUCOSE mg/dL 88 82 76 EGFR 45* 61 80 Lab Results Component Value Date ALT 21 01/18/2025 AST 46 01/18/2025 ALKPHOS 110 01/18/2025 BILITOT 0.5 01/18/2025 Lab Results Component Value Date PROBNP 12,481 (H) 01/20/2025 Blood Cultures: Lab Results Component Value Date CULTURE Sterile after 5 days 01/18/2025 Urine Cultures: Lab Results Component Value Date BILIUA Negative 01/18/2025 BLOODUA Negative 01/18/2025 CLARITYUA Clear 01/18/2025 COLORUA Straw 01/18/2025 KETONESUA Negative 01/18/2025 LEUKOCYTESUA Negative 01/18/2025 NITRITEUA Negative 01/18/2025 PHUA 6.0 01/18/2025 PROTEINUA Negative 01/18/2025 RBCUA 1 01/18/2025 SPECGRAVUA 1.014 01/18/2025 WBCUA 0 01/18/2025 C. Difficile: No results found for: CDIFFTOX , NAP1 Total time spent in discharging pt was 45 mins Dante Ferrara MD 01/25/2025 1:55 PM [1] Allergies Allergen Reactions Codeine Unknown/Patient and Family Unable to Define Flagyl [Metronidazole] Unknown/Patient and Family Unable to Define Hydromorphone Unknown/Patient and Family Unable to Define Hydroxychloroquine Unknown/Patient and Family Unable to Define Methotrexate Unknown/Patient and Family Unable to Define Oxycodone Unknown/Patient and Family Unable to Define Tramadol Unknown/Patient and Family Unable to Define documented in this encounter Discharge Instructions * Attachments The following attachments cannot be sent through Care Everywhere. * Heart Failure Action Plan (Cuban) * Heart Failure: Self-Care (Cuban) * Heart Failure: How to Manage (Cuban) * Radial Site Care (Cuban) * Furosemide Tablets (Cuban) * Atrial Fibrillation Wnab-sb-Ooia (Cuban) documented in this encounter Medications at Time of Discharge allopurinol (ZYLOPRIM) 100 mg tablet Take 2 tablets (200 mg total) by mouth daily. 12/25/2024 apixaban (ELIQUIS) 5 MG tabletIndications:A trial fibrillation (HCC) Take 1 tablet (5 mg total) by mouth every 12 (twelve) hours around the clock. 60 tablet 01/23/2025 atorvastatin (LIPITOR) 20 MG tablet Take 1 tablet (20 mg total) by mouth every morning. 11/16/2024 B-Complex Cap Take 1 capsule by mouth daily. furosemide (LASIX) 20 MG tabletIndications:A cute decompensated heart failure (HCC) Take 2 tablets (40 mg total) by mouth every morning. 60 tablet 01/23/2025 06/16/202 5 leflunomide (ARAVA) 10 MG tablet Take 1 tablet (10 mg total) by mouth every morning. 11/16/2024 metoPROLOL SUCCINATE (TOPROL-XL) 50 MG 24 hr tabletIndications:A trial fibrillation (HCC) Take 1 tablet (50 mg total) by mouth every morning. 30 tablet 01/23/2025 PANTOprazole (PROTONIX) 40 MG EC tablet Take 1 tablet (40 mg total) by mouth every morning. 12/25/2024 silver sulfADIAZINE (SILVADENE) 1 % cream APPLY TO SKIN DAILY 11/13/2024 Vitamin D3 (CHOLECALCIFEROL) 50 MCG (2000 UT) tablet Take 1 tablet (2,000 Units total) by mouth daily. documented as of this encounter Progress Notes * Connie Plata CM - 01/23/2025 3:42 PM EDT 01/23/25 1541 Plan Plan home Patient/Family in Agreement with Plan yes Final Discharge Disposition Code 01 - home or self-care Final Case Management Care Plan Note Summary: Per provider, patient is medically ready to transition home. Confirmed that patient is able to obtain medications/food/necessities post discharge. Final Destination:home Plan for home support/Caregiver/responsible person:spouse Follow-up provider appointment: Per AVS/W-10 Equipment Ordered and Given at Discharge:n/a Final Discharge Transportation:family * Homar Youngblood MD - 01/23/2025 12:00 PM EDT [facility] Progress Note Assessment & Plan Assessment Hypertension/hyperlipidemia Eczema/gout/DVT CHF History of polymyositis Transferred here for workup of chest pain Was found at [facility] to have a group B strep bacteremia. She is on Rocephin The source is unclear as it often is with group B strep bacteremia. Line temperature is 98.4 with awhite count of 6.9 and a creatinine of 0.8 She is having diarrhea I think endocarditis would be unlikely I do not plan on treating her for a prolonged period of time with IV antibiotics A PICC line is not needed She still has some stomach upset which may be due to the antibiotics Plan We will discontinue antibiotics at this time. Subjective No shortness of breath or chest pain Objective Last Vitals Pulse:67,Resp:18,BP:(!) 108/58,SpO2:94 %,Weight:70.1 kg (154 lb 8.7 oz) Temp Last 24 hrs: Temp Min: 96.5 ??F (35.8 ??C) Max: 97.1 ??F (36.2 ??C) Last temp: 96.5 ??F (35.8 ??C) (Tympanic) Physical Exam Lungs: Clear Cardiac: RRR Abdomen: +BS Soft Nontender Skin:No rash No skin lesions Anti-infectives (From admission, onward) Start Dose/Rate Route Frequency Ordered Stop 01/20/25 1100 cefTRIAXone (ROCEPHIN) 2 g in sodium chloride-MBP (NS) 100 mL IVPB-MBP 2 g 200 mL/hr over 30 Minutes Intravenous Every 24 hours 01/19/25 1222 Intake/Output Summary (Last 24 hours) at 01/23/2025 1201 Last data filed at 01/23/2025 0944 Gross per 24 hour Intake 370 ml Output 100 ml Net 270 ml Relevant data reviewed MEDICATIONS Current Facility-Administered Medications Medication Dose Route Frequency Provider Last Rate Last Admin lactated ringers (LR) infusion 50 mL/hr Intravenous Continuous Udolores Ferrara MD 50 mL/hr at 01/23/25 1006 50 mL/hr at 01/23/25 1006 acetaminophen (TYLENOL) tablet 650 mg 650 mg Oral Q6H PRN Levi Perrin PA-C 650 mg at 01/19/25 203 allopurinol (ZYLOPRIM) tablet 200 mg 200 mg Oral Daily eLvi Perrin PA-C 200 mg at 01/23/25 0928 apixaban (ELIQUIS) tablet 5 mg 5 mg Oral Q12H [facility] Gera Sanchez MD 5 mg at 01/23/25 0928 atorvastatin (LIPITOR) tablet 80 mg 80 mg Oral QAM Levi Perrin PA-C 80 mg at 01/23/25 0928 bisacodyl (DULCOLAX) suppository 10 mg 10 mg Rectal Daily PRN Levi Perrin PA-C cefTRIAXone (ROCEPHIN) 2 g in sodium chloride-MBP (NS) 100 mL IVPB-MBP 2 g Intravenous Q24H Levi Perrin PA-C Stopped at 01/23/25 1013 [Provider Held] empagliflozin (JARDIANCE) tablet 10 mg 10 mg Oral Daily Brittany Sheehan MD 10 mg at01/22/25 0846 [Provider Held] furosemide (LASIX) injection 80 mg 80 mg Intravenous Daily Brittany Sheehan MD lactulose (ENULOSE) 10 gm/15 mL solution 20 g 30 mL Oral Q4H PRN Levi Perrin PA-C [Provider Held] losartan (COZAAR) tablet 25 mg 25 mg Oral Daily Brittany Sheehan MD 25 mg at 01/22/25 0846 [Provider Held] metoPROLOL SUCCINATE (TOPROL-XL) 24 hr tablet 50 mg 50 mg Oral Daily Levi Perrin PA-C 50 mg at 01/22/25 0846 naloxone (NARCAN) 0.4 mg/mL injection 0.4 mg 0.4 mg Intravenous Q5 Min PRN Levi Perrin PA-C PANTOprazole (PROTONIX) EC tablet 40 mg 40 mg Oral QAM Levi Perrin PA-C 40 mg at 01/23/25 0928 [Provider Held] senna-docusate (SENNA-S) 8.6-50 MG tablet 2 tablet 2 tablet Oral Nightly Levi Perrin PA-C 2 tablet at 01/18/25 2108 [Provider Held] spironolactone (ALDACTONE) tablet 25 mg 25 mg Oral Daily with breakfast Brittany Sheehan MD Notable labs are: Lab Results Component Value Date WBC 6.8 01/22/2025 HGB 12.4 01/22/2025 HCT 38.1 01/22/2025 PLT 257 01/22/2025 Lab Results Component Value Date AST 46 01/18/2025 ALT 21 01/18/2025 ALKPHOS 110 01/18/2025 BILITOT 0.5 01/18/2025 ALBUMIN 3.5 01/18/2025 PROT 6.6 01/18/2025 Lab Results Component Value Date CREAT 1.3 (H) 01/23/2025 Blood Cultures: Lab Results Component Value Date CULTURE Sterile after 5 days 01/18/2025 Urine Cultures: Lab Results Component Value Date BILIUA Negative 01/18/2025 BLOODUA Negative 01/18/2025 CLARITYUA Clear 01/18/2025 COLORUA Straw 01/18/2025 KETONESUA Negative 01/18/2025 LEUKOCYTESUA Negative 01/18/2025 NITRITEUA Negative 01/18/2025 PHUA 6.0 01/18/2025 PROTEINUA Negative 01/18/2025 RBCUA 1 01/18/2025 SPECGRAVUA 1.014 01/18/2025 WBCUA 0 01/18/2025 No components found for: WOUND C. Difficile: No results found for: CDIFFTOX , NAP1 Sign Homar Youngblood MD 01/23/2025 12:01 PM Homar Youngblood * Brittany Sheehan MD - 01/22/2025 9:41 AM EDT HOSPITAL MEDICINE PROGRESS NOTE Assessment & Plan Brief Summary Patient is a 69 year old female with history of hypertension, hyperlipidemia, varicose veins, DVT 20 years ago who initially presented to OSH for shortness of breath and found to have NSTEMI and A-fib with RVR. Patient was transferred to and started on heparin gtt and admitted to CCU. Patient was found to have newly reduced EF of 45% with significant wall motion abnormality. Of note blood cultures at OSH positive, ID following. Patient deemed medically stable for floor level care 01/19 Status post right and left heart cath which showed nonobstructive coronary artery disease and elevated filling pressure #Cardiogenic/Septic shock: Resolved #Acute heart failure with midrange ejection fraction #stress-induced cardiomyopathy #Elevated troponin due to the shock, rule out non-STEMI #A-fib with RVR, she is sinus at this time - [id number] . On Eliquis - Continue aspirin, Lipitor - Started on IV lasix 80 and diuresed well yesterday. Will switch to 80 once daily today due to elevated BUN., Likely switch to oral diuretics tomorrow - GDMT: Started on Aldactone today. Continue losartan, Jardiance, Toprol - Strict ins and outs - Daily weight - Maintain potassium above 4 and magnesium of 2 #group B Streptococcus bacteremia -patient has group B streptococcus bacteremia based on [place] labs. Patient was continued on ceftriaxone here and ID is recommending switching that to no antibiotics or oral antibiotics on discharge -Appreciate ID recommendations - Continue ceftriaxone Disposition: Pending response to GDMT and urine output. Will need final ID plan as well Quality Metrics DVT PROPHYLAXIS Risk Assessment Scores and Dates: VTE Time Out IMPROVE SCORE: 3 (01/18/2025 8:58 PM) Interpretation - High Risk Chemical Prophylaxis apixaban (ELIQUIS) tablet 5 mg Oral Every 12 hours scheduled Heparin (Porcine) in NaCl, Heparin Sodium (Porcine) 5000 Units Last dose 01/20/2025 3:17 PM Apixaban 5 mg Last dose 01/22/2025 8:46 AM Mechanical Prophylaxis SCDs are ordered - Bilateral (Knee High) Expected Date of Discharge 01/23/2025 Subjective Chief complaint Chief Complaint Patient presents with Chest Pain Patient is being seen for acute medical problems and follow-up for chronic medical issues as mentioned in the assessment and plan above. Overnight Events/Patient Discussion: Denies nausea, vomiting, chest pain or shortness of breath Objective Vitals: 01/21/25 0731 01/21/25 1041 01/21/25 1537 01/21/25 1723 BP: 131/76 128/62 (!) 99/55 (!) 108/57 Pulse: 64 61 Resp: 18 18 Temp: 97.9 ??F (36.6 ??C) (!) 95.5 ??F (35.3 ??C) SpO2: 98% 96% 01/21/25 2000 01/21/25 2300 01/22/25 0748 01/22/25 0846 BP: 111/62 115/65 117/62 Pulse: 60 75 66 Resp: 18 18 Temp: 96.8 ??F (36 ??C) 97.9 ??F (36.6 ??C) SpO2: 96% 95% 94% Physical Exam Constitutional: General: She is not in acute distress. Appearance: She is not diaphoretic. Eyes: General: Right eye: No discharge. Left eye: No discharge. Cardiovascular: Rate and Rhythm: Normal rate and regular rhythm. Heart sounds: No murmur heard. Pulmonary: Effort: Pulmonary effort is normal. No respiratory distress. Breath sounds: Normal breath sounds. No wheezing. Abdominal: General: Bowel sounds are normal. Palpations: Abdomen is soft. Skin: General: Skin is warm. Relevant data reviewed Results from last 7 days Lab Units 01/22/25 0802 WHITE BLOOD CELL COUNT Thou/uL 6.8 HEMOGLOBIN g/dL 12.4 HEMATOCRIT % 38.1 PLATELET COUNT Thou/uL 257 Results from last 7 days Lab Units 01/22/25 0802 SODIUM mmol/L 143 POTASSIUM mmol/L 4.1 CHLORIDE mmol/L 101 CO2 mmol/L 27 BUN mg/dL 25* CREATININE mg/dL 1.0 EGFR 61 GLUCOSE mg/dL 82 CALCIUM mg/dL 10.1 Note: Some information is being carried forward from prior records for informational purposes only and is being cited so that efficiency, safety and quality of this patient's care is not compromised. Sign Brittany Sheehan MD 01/22/2025 9:41 AM * Magalys Wilsno APRN - 01/22/2025 8:09 AM EDT Images from the original note were not included. Chief Complaint: Dyspnea Assessment & Plan Assessment Cardiomyopathy, EF 45% Chest pain Bacteremia-group B strep Hypertension Hyperlipidemia Fevers, chills Mild aortic stenosis Lactic acidosis, cleared NSTEMI 69 y.o. female with above history who transferred to 01/18/2025 from [facility] with increasing shortness of breath, CP. She was admitted with NSTEMI, transferred to [facility] for further evaluation. Echo had demonstrated LVEF-45% with significant wall motion abnormalities. Blood cultures from outside hospital were positive for group B strep bacteremia. Subsequently went into A-fib RVR treated with beta-pablo and self converted to sinus rhythm ID consulted for group B strep bacteremia initiated on Rocephin. CT at outside hospital negative for PE. 01/20L/R HC: No significant coronary artery disease. RA: 11, PA: 54/21 (36), PCW: 20. CI: 2.9, CO: 5, SVR 1154 01/18 ECHO: LVEF-45% severe hypo-akinesis mid anterior, mid anterior lateral, mid anterior septal, mid inferior lateral segments. Normal RV size and function. Mild aortic stenosis, mild-mod TR I/O -1.8L -4.1 LOS Wt- 156 today. Unclear if prior weights were standing or bed but has been downtrending Given her cardiac cath with no significant coronary disease possible her acute heart failure may bein the setting of a stress cardiomyopathy we will reassess outpatient after GDMT initiated Plan She appears euvolemic on exam weight has consistently down trended since her RHC. Would be reasonable to transition back to an oral regimen. Would discharge on Lasix 40 mg daily Continue metoprolol succinate 50 mg daily Continue losartan 25 mg daily Continue Jardiance Initiated on spironolactone today Strict I's/O and daily standing weights She will need repeat echo in 3 months outpatient Has remained in sinus rhythm Eliquis 5 mg twice daily Continue atorvastatin Appointments being arranged for her to follow-up with a station operator near her home in [place] She will follow-up with heart failure clinic at [facility] Subjective Resting in the chair. Feeling well. Denies any lightheadedness, dizziness, fever, chills, dyspnea or orthopnea. Walked in the [place] yesterday and did stairs complained of lower extremity weakness but no exertional symptoms Objective Telemetry Reviewed: PVcs Last Vitals Pulse:75,Resp:18,BP:115/65,SpO2:94 %,Weight:70.9 kg (156 lb 4.9 oz) Temp Last 24 hrs: Temp Min: 95.5 ??F (35.3 ??C) Max: 97.9 ??F (36.6 ??C) Wt Readings from Last 3 Encounters: 01/22/25 70.9 kg (156 lb 4.9 oz) Intake/Output Summary (Last 24 hours) at 01/22/2025 0809 Last data filed at 01/22/2025 0500 Gross per 24 hour Intake 1253 ml Output 3100 ml Net -1847 ml Physical Exam GENERAL: No acute distress. HEENT: Anicteric. No pallor. Moist oral membranes. NECK: Supple. No carotid bruits. Unable to assess JVP pt upright in the chair, unable to recline CHEST: Nontender. Clear to auscultation bilaterally. CARDIAC: Regular rate and rhythm. 3/6 systolic murmur ABDOMEN: Soft. Nontender. Normal bowel sounds. EXTREMITIES: Warm. Well-perfused. No edema. VASCULAR: + distal pulses SKIN: Warm and dry. No rashes. NEUROLOGIC: Alert. Grossly nonfocal. Medications Medications Scheduled Medication Ordered Dose/Rate, Route, Frequency Last Action allopurinol (ZYLOPRIM) tablet 200 mg 200 mg, PO, Daily Given, 200 mg at 01/21 830 apixaban (ELIQUIS) tablet 5 mg 5 mg, PO, Q12H GOOD Given, 5 mg at 01/21 2115 atorvastatin (LIPITOR) tablet 80 mg 80 mg, PO, QAM Given, 80 mg at 01/22 510 cefTRIAXone (ROCEPHIN) 2 g in sodium chloride-MBP (NS) 100 mL IVPB-MBP 2 g, IV, Q24H Stopped, 01/21 114 empagliflozin (JARDIANCE) tablet 10 mg 10 mg, PO, Daily Given, 10 mg at 01/21 104 furosemide (LASIX) injection 80 mg 80 mg, IV, BID Given, 80 mg at 01/21 172 losartan (COZAAR) tablet 25 mg 25 mg, PO, Daily Given, 25 mg at 01/21 1041 metoPROLOL SUCCINATE (TOPROL-XL) 24 hr tablet 50 mg 50 mg, PO, Daily Given, 50 mg at 01/21 08 PANTOprazole (PROTONIX) EC tablet 40 mg 40 mg, PO, QAM Given, 40 mg at 01/22 510 [Provider Held] senna-docusate (SENNA-S) 8.6-50 MG tablet 2 tablet On hold since Sat01/19/2025 at 1431 until manually unheld; held by Rey Harp Reason: Other - Comment requiredHold Comment: Diarrhea On hold since Sat01/19/2025 at 1431 until manually unheld (Needs Review) Hold reason: Other - Comment required, Hold comment: Diarrhea 2 tablet, PO, Nightly Given, 2 tablet at 01/19 2108 PRN Medication Ordered Dose/Rate, Route, Frequency Last Action acetaminophen (TYLENOL) tablet 650 mg 650 mg, PO, Q6H PRN Given, 650 mg at 01/19 2031 bisacodyl (DULCOLAX) suppository 10 mg 10 mg, RE, Daily PRN Ordered lactulose (ENULOSE) 10 gm/15 mL solution 20 g 30 mL, PO, Q4H PRN Ordered naloxone (NARCAN) 0.4 mg/mL injection 0.4 mg 0.4 mg, IV, Q5 Min PRN Ordered Relevant data reviewed Results from last 7 days Lab Units 01/21/25 0801/20/2575401/19/25 0800 01/18/25 2346 01/18/25 1544 01/18/25 1039 SODIUM mmol/L 140 144 -- 143 -- 141 POTASSIUM mmol/L 3.7 3.6 4.0 3.3* -- 3.8 CHLORIDE mmol/L 103 108* -- 108* -- 106 CO2 mmol/L 25 24 -- 25 -- 19* BUN mg/dL 16 20 -- 23* -- 25* CREATININE mg/dL 0.8 0.9 -- 0.8 -- 0.9 CALCIUM mg/dL 9.5 9.3 -- 9.0 -- 8.8 GLUCOSE mg/dL 76 71 -- 83 -- 112* GLUCOSE, POC -- -- -- -- < > -- EGFR 80 69 -- 80 -- 69 ALBUMIN g/dL -- -- -- -- -- 3.5 PROTEIN, TOTAL g/dL -- -- -- -- -- 6.6 BILIRUBIN TOTAL mg/dL -- -- -- -- -- 0.5 ALK PHOS U/L -- -- -- -- -- 110 ALT U/L -- -- -- -- -- 21 AST U/L -- -- -- -- -- 46 < > = values in this interval not displayed. Lab Results Component Value Date MG 1.7 01/21/2025 Results from last 7 days Lab Units 01/20/25 07501/18/25 2346 01/18/25 1039 WHITE BLOOD CELL COUNT Thou/uL 6.9 10.9 20.1* HEMOGLOBIN g/dL 10.8* 10.0* 11.1* HEMATOCRIT % 34.2* 31.4* 37.2 PLATELET COUNT Thou/uL 178 192 219 NEUTROS PCT % -- -- 90.1 LYMPHS PCT % -- -- 3.8 MONOS PCT % -- -- 5.2 EOS PCT % -- -- 0.0 BASOS PCT % -- -- 0.3 Lab Results Component Value Date HSTNT 542 (HH) 01/18/2025 HSTNT 647 (HH) 01/18/2025 Lab Results Component Value Date PROBNP 12,481 (H) 01/20/2025 Lab Results Component Value Date HGBA1C 5.3 01/18/2025 Imaging Studies All appropriate imaging studies within the past 24 hours reviewed Sign Magalys Wilson APRN 01/22/2025 8:09 AM * Homar Youngblood MD - 01/21/2025 12:25 PM EDT [facility] Progress Note Assessment & Plan Assessment Hypertension/hyperlipidemia Eczema/gout/DVT CHF History of polymyositis Transferred here for workup of chest pain Was found at [facility] to have a group B strep bacteremia. She is on Rocephin The source is unclear as it often is with group B strep bacteremia. Line temperature is 98.4 with awhite count of 6.9 and a creatinine of 0.8 She is having diarrhea I think endocarditis would be unlikely I do not plan on treating her for a prolonged period of time with IV antibiotics A PICC line is not needed Echocardiogram is not indicative of endocarditis and I think endocarditis would be very unlikely here Plan Continue Rocephin while she is here. I will either send her home off antibiotics or with some Keflex Her diarrhea is a little concerning but apparently she has had it on and off in the past. Subjective No shortness of breath or chest pain Objective Last Vitals Pulse:64,Resp:18,BP:128/62,SpO2:98 %,Weight:72 kg (158 lb 11.7 oz) Temp Last 24 hrs: Temp Min: 96.4 ??F (35.8 ??C) Max: 98.4 ??F (36.9 ??C) Last temp: 97.9 ??F (36.6 ??C) (Tympanic) Physical Exam Lungs: Clear Cardiac: RRR Abdomen: +BS Soft Nontender Skin:No rash No skin lesions Anti-infectives (From admission, onward) Start Dose/Rate Route Frequency Ordered Stop 01/20/25 1100 cefTRIAXone (ROCEPHIN) 2 g in sodium chloride-MBP (NS) 100 mL IVPB-MBP 2 g 200 mL/hr over 30 Minutes Intravenous Every 24 hours 01/19/25 1222 Intake/Output Summary (Last 24 hours) at 01/21/2025 1225 Last data filed at 01/21/2025 1000 Gross per 24 hour Intake 1260.68 ml Output 905 ml Net 355.68 ml Relevant data reviewed MEDICATIONS Current Facility-Administered Medications Medication Dose Route Frequency Provider Last Rate Last Admin acetaminophen (TYLENOL) tablet 650 mg 650 mg Oral Q6H PRN Levi Perrin PA-C 650 mg at 01/19/252030 allopurinol (ZYLOPRIM) tablet 200 mg 200 mg Oral Daily Levi Perrin PA-C 200 mg at 01/21/25 0830 apixaban (ELIQUIS) tablet 5 mg 5 mg Oral Q12H [facility] Gera Sanchez MD 5 mg at 01/21/25 0828 atorvastatin (LIPITOR) tablet 80 mg 80 mg Oral QAM Levi Perrin PA-C 80 mg at 01/21/25 0830 bisacodyl (DULCOLAX) suppository 10 mg 10 mg Rectal Daily PRN Levi Perrin PA-C cefTRIAXone (ROCEPHIN) 2 g in sodium chloride-MBP (NS) 100 mL IVPB-MBP 2 g Intravenous Q24H Levi Perrin PA-C Stopped at 01/21/25 1140 empagliflozin (JARDIANCE) tablet 10 mg 10 mg Oral Daily Brittany Sheehan MD 10 mg at 01/21/25 1041 furosemide (LASIX) injection 80 mg 80 mg Intravenous BID Brittany Sheehan MD 80 mg at 01/21/25 0828 lactulose (ENULOSE) 10 gm/15 mL solution 20 g 30 mL Oral Q4H PRN Levi Perrin PA-C losartan (COZAAR) tablet 25 mg 25 mg Oral Daily Brittany Sheehan MD 25 mg at 01/21/25 1041 magnesium sulfate IVPB 2 g in 50 mL SW PREMIX 2 g Intravenous Once Brittany Sheehan MD 50 mL/hr at 01/21/25 1144 2 g at 01/21/25 1144 metoPROLOL SUCCINATE (TOPROL-XL) 24 hr tablet 50 mg 50 mg Oral Daily CARIDAD Jo-C 50 mg at 01/21/25 0829 naloxone (NARCAN) 0.4 mg/mL injection 0.4 mg 0.4 mg Intravenous Q5 Min PRN Levi A Salmaad, PA-C PANTOprazole (PROTONIX) EC tablet 40 mg 40 mg Oral QAM Levi A Salmaad, PA-C 40 mg at 01/21/25 0829 [Provider Held] senna-docusate (SENNA-S) 8.6-50 MG tablet 2 tablet 2 tablet Oral Nightly Levi A Salmaad, PA-C 2 tablet at 01/18/25 2108 Notable labs are: Lab Results Component Value Date WBC 6.9 01/20/2025 HGB 10.8 (L) 01/20/2025 HCT 34.2 (L) 01/20/2025 PLT 178 01/20/2025 Lab Results Component Value Date AST 46 01/18/2025 ALT 21 01/18/2025 ALKPHOS 110 01/18/2025 BILITOT 0.5 01/18/2025 ALBUMIN 3.5 01/18/2025 PROT 6.6 01/18/2025 Lab Results Component Value Date CREAT 0.8 01/21/2025 Blood Cultures: Lab Results Component Value Date CULTURE Sterile after 3 days 01/18/2025 Urine Cultures: Lab Results Component Value Date BILIUA Negative 01/18/2025 BLOODUA Negative 01/18/2025 CLARITYUA Clear 01/18/2025 COLORUA Straw 01/18/2025 KETONESUA Negative 01/18/2025 LEUKOCYTESUA Negative 01/18/2025 NITRITEUA Negative 01/18/2025 PHUA 6.0 01/18/2025 PROTEINUA Negative 01/18/2025 RBCUA 1 01/18/2025 SPECGRAVUA 1.014 01/18/2025 WBCUA 0 01/18/2025 No components found for: WOUND C. Difficile: No results found for: CDIFFTOX , NAP1 Sign Homar Youngblood MD 01/21/2025 12:25 PM Homar Youngblood * Brittany Sheehan MD - 01/21/2025 9:38 AM EDT [facility] Assessment & Plan Brief Summary Patient is a 69 year old female with history of hypertension, hyperlipidemia, varicose veins, DVT 20 years ago who initially presented to OSH for shortness of breath and found to have NSTEMI and A-fib with RVR. Patient was transferred to and started on heparin gtt and admitted to CCU. Patient was found to have newly reduced EF of 45% with significant wall motion abnormality. Of note blood cultures at OSH positive, ID following. Patient deemed medically stable for floor level care 01/19 Status post right and left heart cath which showed nonobstructive coronary artery disease and elevated filling pressure #Cardiogenic/Septic shock: Resolved #Acute heart failure with midrange ejection fraction #stress-induced cardiomyopathy #Elevated troponin due to the shock, rule out non-STEMI #A-fib with RVR, she is sinus at this time - [id number] . On Eliquis - Continue aspirin, Lipitor - Started on IV lasix 80 BID as she didn't respond well to 40 BID - GDMT: Started on losartan, Jardiance, Toprol -will add aldactone tomorrow - Strict ins and outs - Daily weight - Maintain potassium above 4 and magnesium of 2 #Streptococcus bacteremia -Appreciate ID recommendations - Continue ceftriaxone - Will likely need long-term antibiotics Quality Metrics DVT PROPHYLAXIS Risk Assessment Scores and Dates: VTE Time Out IMPROVE SCORE: 3 (01/18/2025 8:58 PM) Interpretation - High Risk Chemical Prophylaxis apixaban (ELIQUIS) tablet 5 mg Oral Every 12 hours scheduled Heparin (Porcine) in NaCl, Heparin Sodium (Porcine) 5000 Units Last dose 01/20/2025 3:17 PM Apixaban 5 mg Last dose 01/21/2025 8:28 AM Mechanical Prophylaxis SCDs are ordered - Bilateral (Knee High) Patient declined SCD use, Please review Expected Date of Discharge 01/25/2025 Subjective Chief complaint Chief Complaint Patient presents with Chest Pain Patient is being seen for acute medical problems and follow-up for chronic medical issues as mentioned in the assessment and plan above. Overnight Events/Patient Discussion: Denies nausea, vomiting, SOB or chest pain Objective Vitals: 01/20/25 1800 01/20/25 1830 01/20/25 1930 01/20/252038 BP: (!) 114/55 133/63 (!) 140/60 (!) 151/69 Pulse: 66 65 63 66 Resp: 18 18 Temp: 98.2 ??F (36.8 ??C) 98.4 ??F (36.9 ??C) SpO2: 94% 94% 94% 01/20/25 2142 01/20/25 2200 01/21/25 0245 01/21/25 0731 BP: 130/65 122/70 129/66 131/76 Pulse: 66 68 65 64 Resp: 18 18 18 Temp: 97.8 ??F (36.6 ??C) 96.4 ??F (35.8 ??C) 97.9 ??F (36.6 ??C) SpO2: 95% 95% 96% 98% Physical Exam Constitutional: General: She is not in acute distress. Appearance: She is not diaphoretic. HENT: Mouth/Throat: Pharynx: No oropharyngeal exudate. Eyes: General: Right eye: No discharge. Left eye: No discharge. Cardiovascular: Rate and Rhythm: Normal rate and regular rhythm. Heart sounds: No murmur heard. Pulmonary: Effort: Pulmonary effort is normal. No respiratory distress. Breath sounds: Normal breath sounds. No wheezing. Abdominal: General: Bowel sounds are normal. Palpations: Abdomen is soft. Skin: General: Skin is warm. Psychiatric: Behavior: Behavior normal. Relevant data reviewed Results from last 7 days Lab Units 01/20/25 0755 WHITE BLOOD CELL COUNT Thou/uL 6.9 HEMOGLOBIN g/dL 10.8* HEMATOCRIT % 34.2* PLATELET COUNT Thou/uL 178 Results from last 7 days Lab Units 01/21/25 0819 SODIUM mmol/L 140 POTASSIUM mmol/L 3.7 CHLORIDE mmol/L 103 CO2 mmol/L 25 BUN mg/dL 16 CREATININE mg/dL 0.8 EGFR 80 GLUCOSE mg/dL 76 CALCIUM mg/dL 9.5 Note: Some information is being carried forward from prior records for informational purposes only and is being cited so that efficiency, safety and quality of this patient's care is not compromised. Sign Brittany Sheehan MD 01/21/2025 9:38 AM * Meenu Bazzi, PT - 01/21/2025 8:55 AM EDT Physical Therapy Progress Note Precautions/Restrictions: fall Assessment Summary: Pt seen for PT follow up s/p cardiac cath. Pt denied sx for session. Pt own slippers donned for session with some improvement in gait quality noted. Pt amb without LOB or assistive device. Cont min lat sway which pt reports as baseline. Contact guard for flight of stairs, ed pt to use B hands on rail and ascend sideways. Pt reports some baseline difficulty with stairs but verbalized increased ease post ed on sideways negotiation. Pt declined out pt PT for strengthening. Rec home with asisst. Progress Towards Goals: good Outcome Measures: The Activity Measure for Post-Acute Care (AM-PAC) Basic Mobility Inpatient Short Form (6-clicks) linda standardized measure used to quantify functional deficits in mobility. The total score of the measure ranges from 6-24. A higher score indicates a higher level of independence with functional mobility. Current [facility] Basic Mobility Score: 22 Rehab Plan of Care Rec amb with nursing staff to increase act juana. If transitioning to home, patient will require assist from fam as needed. . PT Recommendations for Staff: transfer/amb 1 assist. oob chair for meals. PT Frequency during Hospitalization: other (see comments) (1x follow up) Plan of Care Reviewed With: patient Objective Data/Intervention Bed Mobility Assessment/Intervention: I Transfers Assessment/Intervention: I Gait/Stair Assessment/Intervention: amb stand by 200 feet. No LOB. Increased lat sway. Stiar: 10 with rail , sideways for B UE support, contact guard. Activity Tolerance/Endurance Assessment/Intervention: good, denied sx. Vitals: Bp 131/76-155/78 HR 82-81 Education: role PT. poc Subjective It went very well Flowsheet Data 01/21/25 0835 Physical Therapy Time and Intention PT Follow-Up Visit follow up treatment Mode of Treatment individual therapy;physical therapy Total Minutes, Physical Therapy 16 Patient Effort good Symptoms Noted During/After Treatment none General Information Patient Profile Reviewed yes Patient/Family/Caregiver Comments/Observations It went very well General Observations of Patient EOB on arrival Existing Precautions/Restrictions fall Cognition Orientation Status (Cognition) oriented x 4 Coping Observed Emotional State calm;cooperative Verbalized Emotional State acceptance Trust Relationship/Rapport care explained;choices provided;reassurance provided Family/Support Persons patient Plan of Care Review Plan of Care Reviewed With patient Safety Safety WDL WDL Enhanced Safety Measures bed alarm set Progressive Mobility Progressive Mobility Level Achieved Ambulation Ambulation Distance (Feet) 250 [facility] Basic Mobility Turning from your back to your side while in a flat bed without using bedrails? 4 Moving from lying on your back to sitting on the side of a flat bed without using bedrails? 4 Moving to and from a bed to a chair (including wheelchair)? 4 Standing up from a chair using your arms? 4 To walk in a hospital room? 3 Climbing 3-5 steps with a railing? 3 [facility] Basic Mobility Score 22 Therapy Assessment/Plan (PT) PT Recommendations for Staff transfer/amb 1 assist. oob chair for meals. Therapy Plan Review/Discharge Plan (PT) Therapy Plan Review (PT) patient Sign: Meenu Bazzi PT * Gera Sanchez MD - 01/21/2025 6:50 AM EDT Images from the original note were not included. Chief Complaint: Follow-up Assessment & Plan Assessment Cardiomyopathy, EF 45% Chest pain Bacteremia-group B strep Hypertension Hyperlipidemia Fevers, chills Mild aortic stenosis Lactic acidosis, cleared NSTEMI In summary, Karol is a pleasant 69-year-old female with above-mentioned past medical history presenting from outside hospital with shortness of breath, NSTEMI, A-fib with RVR and bacteremia. Cardiac catheterization revealing no significant coronary disease and elevated filling pressures. Patient's presentation may be secondary to a stress cardiomyopathy. Will initiate GDMT and reassess echocardiogram in 3 months. Plan Start Eliquis 5 mg twice daily Recommend 40 of IV Lasix twice daily today. Goal net -1 L. Continue atorvastatin. Monitor I's and O's, weights. Appreciate ID recommendations regarding bacteremia. Continue metoprolol 25 mg twice daily. Recommend losartan 25 mg daily and jardiance 10 mg Start spironolactone tomorrow if blood pressure tolerates. Appears relatively euvolemic. Will plan to uptitrate GDMT and reassess echocardiogram in 3 months. Subjective Karol is feeling much better today. Less fevers, chills. No chest pain, dyspnea, pnd or orthopnea. Objective Telemetry Reviewed: Normal sinus rhythm Last Vitals Pulse:65,Resp:18,BP:129/66,SpO2:96 %,Weight:72 kg (158 lb 11.7 oz) Temp Last 24 hrs: Temp Min: 96.4 ??F (35.8 ??C) Max: 98.4 ??F (36.9 ??C) Intake/Output Summary (Last 24 hours) at 01/21/2025 0651 Last data filed at 01/21/2025 0521 Gross per 24 hour Intake 865.68 ml Output 605 ml Net 260.68 ml Physical Exam GENERAL: No acute distress. HEENT: Anicteric. No pallor. Moist oral membranes. NECK: Supple. No carotid bruits. JVP normal. CHEST: Nontender. Clear to auscultation bilaterally. CARDIAC: Regular rate and rhythm. Nondisplaced PMI. 2/6 systolic murmur ABDOMEN: Soft. Nontender. Normal bowel sounds. EXTREMITIES: Warm. Well-perfused. No edema. VASCULAR: + distal pulses SKIN: Warm and dry. No rashes. NEUROLOGIC: Alert. Grossly nonfocal. Medications Medications Scheduled Medication Ordered Dose/Rate, Route, Frequency Last Action allopurinol (ZYLOPRIM) tablet 200 mg 200 mg, PO, Daily Given, 200 mg at 01/20 075 aspirin chewable tablet 81 mg 81 mg, PO, Daily Given, 81 mg at 01/20 075 atorvastatin (LIPITOR) tablet 80 mg 80 mg, PO, QAM Given, 80 mg at 01/20 522 cefTRIAXone (ROCEPHIN) 2 g in sodium chloride-MBP (NS) 100 mL IVPB-MBP 2 g, IV, Q24H Stopped, 01/20 1040 furosemide (LASIX) injection 40 mg 40 mg, IV, BID Given, 40 mg at 01/20 175 metoPROLOL SUCCINATE (TOPROL-XL) 24 hr tablet 50 mg 50 mg, PO, Daily Given, 50 mg at 01/20 075 PANTOprazole (PROTONIX) EC tablet 40 mg 40 mg, PO, QAM Given, 40 mg at 01/20 05 [Provider Held] senna-docusate (SENNA-S) 8.6-50 MG tablet 2 tablet On hold since Sat01/19/2025 at 1431 until manually unheld; held by Rey Harp Reason: Other - Comment requiredHold Comment: Diarrhea On hold since Sat01/19/2025 at 1431 until manually unheld (Needs Review) Hold reason: Other - Comment required, Hold comment: Diarrhea 2 tablet, PO, Nightly Given, 2 tablet at 01/19 2108 PRN Medication Ordered Dose/Rate, Route, Frequency Last Action acetaminophen (TYLENOL) tablet 650 mg 650 mg, PO, Q6H PRN Given, 650 mg at 01/19 2031 bisacodyl (DULCOLAX) suppository 10 mg 10 mg, RE, Daily PRN Ordered lactulose (ENULOSE) 10 gm/15 mL solution 20 g 30 mL, PO, Q4H PRN Ordered naloxone (NARCAN) 0.4 mg/mL injection 0.4 mg 0.4 mg, IV, Q5 Min PRN Ordered Relevant data reviewed Results from last 7 days Lab Units 01/20/25 0755 01/19/25 0800 01/18/25 2346 01/18/25 1544 01/18/25 1039 SODIUM mmol/L 144 -- 143 -- 141 POTASSIUM mmol/L 3.6 4.0 3.3* -- 3.8 CHLORIDE mmol/L 108* -- 108* -- 106 CO2 mmol/L 24 -- 25 -- 19* BUN mg/dL 20 -- 23* -- 25* CREATININE mg/dL 0.9 -- 0.8 -- 0.9 CALCIUM mg/dL 9.3 -- 9.0 -- 8.8 GLUCOSE mg/dL 71 -- 83 -- 112* GLUCOSE, POC mg/dL -- -- -- 96 -- EGFR 69 -- 80 -- 69 ALBUMIN g/dL -- -- -- -- 3.5 PROTEIN, TOTAL g/dL -- -- -- -- 6.6 BILIRUBIN TOTAL mg/dL -- -- -- -- 0.5 ALK PHOS U/L -- -- -- -- 110 ALT U/L -- -- -- -- 21 AST U/L -- -- -- -- 46 Lab Results Component Value Date MG 1.7 01/20/2025 Results from last 7 days Lab Units 01/20/25 0755 01/18/25 2346 01/18/25 1039 WHITE BLOOD CELL COUNT Thou/uL 6.9 10.9 20.1* HEMOGLOBIN g/dL 10.8* 10.0* 11.1* HEMATOCRIT % 34.2* 31.4* 37.2 PLATELET COUNT Thou/uL 178 192 219 NEUTROS PCT % -- -- 90.1 LYMPHS PCT % -- -- 3.8 MONOS PCT % -- -- 5.2 EOS PCT % -- -- 0.0 BASOS PCT % -- -- 0.3 Lab Results Component Value Date PROBNP 12,481 (H) 01/20/2025 Lab Results Component Value Date HGBA1C 5.3 01/18/2025 Imaging Studies All appropriate imaging studies within the past 24 hours reviewed (actual images) Sign Gera Sanchez MD 01/21/2025 6:51 AM * Homar Youngblood MD - 01/20/2025 11:26 AM EDT [facility] Progress Note Assessment & Plan Assessment Hypertension/hyperlipidemia Eczema/gout/DVT CHF History of polymyositis Transferred here for workup of chest pain Was found at [facility] to have a group B strep bacteremia. She is on Rocephin The source is unclear as it often is with group B strep bacteremia. Temperature is 98.2 with a white count of 6.9 and a creatinine of 0.9 Plan Continue Rocephin Subjective No shortness of breath or chest pain Objective Last Vitals Pulse:70,Resp:20,BP:133/72,SpO2:99 %,Weight:74.4 kg (164 lb 0.4 oz) Temp Last 24 hrs: Temp Min: 95.1 ??F (35.1 ??C) Max: 98.2 ??F (36.8 ??C) Last temp: 97.9 ??F (36.6 ??C) (Tympanic) Physical Exam Lungs: Clear Cardiac: RRR Abdomen: +BS Soft Nontender Skin:No rash No skin lesions Anti-infectives (From admission, onward) Start Dose/Rate Route Frequency Ordered Stop 01/20/25 1100 cefTRIAXone (ROCEPHIN) 2 g in sodium chloride-MBP (NS) 100 mL IVPB-MBP 2 g 200 mL/hr over 30 Minutes Intravenous Every 24 hours 01/19/25 1222 Intake/Output Summary (Last 24 hours) at 01/20/2025 1126 Last data filed at 01/20/2025 1008 Gross per 24 hour Intake 1094.39 ml Output 2150 ml Net -1055.61 ml Relevant data reviewed MEDICATIONS Current Facility-Administered Medications Medication Dose Route Frequency Provider Last Rate Last Admin acetaminophen (TYLENOL) tablet 650 mg 650 mg Oral Q6H PRN Teresa G Haseeb, PA- C 650 mg at 01/19/25 2031 allopurinol (ZYLOPRIM) tablet 200 mg 200 mg Oral Daily Teresa G Haseeb, PA-C 200 mg at 01/20/25 0756 aspirin chewable tablet 81 mg 81 mg Oral Daily Teresa G Haseeb, PA-C 81 mg at 01/20/25 0756 atorvastatin (LIPITOR) tablet 80 mg 80 mg Oral QAM Teresa G Haseeb, PA-C 80 mg at 01/20/25 0522 bisacodyl (DULCOLAX) suppository 10 mg 10 mg Rectal Daily PRN Teresa G Haseeb, PA-C cefTRIAXone (ROCEPHIN) 2 g in sodium chloride-MBP (NS) 100 mL IVPB-MBP 2 g Intravenous Q24H Teresa G Haseeb, PA-C Stopped at 01/20/25 1040 [Provider Held] furosemide (LASIX) injection 40 mg 40 mg Intravenous BID Teresa G Haseeb, PA-C 40mg at 01/19/25 1143 heparin (porcine) 1000 unit/mL injection 2,300 Units 30 Units/kg Intravenous Q6H PRN Teresa G Haseeb, PA-C heparin (porcine) IV infusion 25,000 units in 500 mL 0.45% NaCl (premix) 12 Units/kg/hr IntravenousContinuous Teresa G Haseeb, PA-C 21.84 mL/hr at 01/20/25 0559 14 Units/kg/hr at 01/20/25 0559 lactulose (ENULOSE) 10 gm/15 mL solution 20 g 30 mL Oral Q4H PRN Teresa G Haseeb, PA-C metoPROLOL SUCCINATE (TOPROL-XL) 24 hr tablet 50 mg 50 mg Oral Daily Brittany Sheehan MD 50 mg at 01/20/25 0756 naloxone (NARCAN) 0.4 mg/mL injection 0.4 mg 0.4 mg Intravenous Q5 Min PRN Teresa G Haseeb, PA-C PANTOprazole (PROTONIX) EC tablet 40 mg 40 mg Oral QAM Teresa G Haseeb, PA-C 40 mg at 01/20/25 0522 [Provider Held] senna-docusate (SENNA-S) 8.6-50 MG tablet 2 tablet 2 tablet Oral Nightly Teresa GThorne, PA-C 2 tablet at 01/18/25 2108 Notable labs are: Lab Results Component Value Date WBC 6.9 01/20/2025 HGB 10.8 (L) 01/20/2025 HCT 34.2 (L) 01/20/2025 PLT 178 01/20/2025 Lab Results Component Value Date AST 46 01/18/2025 ALT 21 01/18/2025 ALKPHOS 110 01/18/2025 BILITOT 0.5 01/18/2025 ALBUMIN 3.5 01/18/2025 PROT 6.6 01/18/2025 Lab Results Component Value Date CREAT 0.9 01/20/2025 Blood Cultures: Lab Results Component Value Date CULTURE Sterile after 2 days 01/18/2025 Urine Cultures: Lab Results Component Value Date BILIUA Negative 01/18/2025 BLOODUA Negative 01/18/2025 CLARITYUA Clear 01/18/2025 COLORUA Straw 01/18/2025 KETONESUA Negative 01/18/2025 LEUKOCYTESUA Negative 01/18/2025 NITRITEUA Negative 01/18/2025 PHUA 6.0 01/18/2025 PROTEINUA Negative 01/18/2025 RBCUA 1 01/18/2025 SPECGRAVUA 1.014 01/18/2025 WBCUA 0 01/18/2025 No components found for: WOUND C. Difficile: No results found for: CDIFFTOX , NAP1 Sign Homar Youngblood MD 01/20/2025 11:26 AM Homar Youngblood * Brittany Sheehan MD - 01/20/2025 9:31 AM EDT HOSPITAL MEDICINE PROGRESS NOTE Assessment & Plan Brief Summary Patient is a 69 year old female with history of hypertension, hyperlipidemia, varicose veins, DVT 20 years ago who initially presented to OSH for shortness of breath and found to have NSTEMI and A-fib with RVR. Patient was transferred to and started on heparin gtt and admitted to CCU. Patient was found to have newly reduced EF of 45% with significant wall motion abnormality. Of note blood cultures at OSH positive, ID following. Patient deemed medically stable for floor level care 01/19 #Cardiogenic shock: Resolved #Acute heart failure with midrange ejection fraction #Elevated troponin with concern of non-STEMI #A-fib with RVR, she is sinus at this time - Continue heparin drip for now - Plan for left and right heart cath today, n.p.o. - Continue aspirin, Lipitor - Holding Lasix prior to cath however patient will likely need to continue Lasix after procedure -[id number] score is only 4, will need of anticoagulation on discharge - Lopressor was switched to Toprol 50 mg daily - Will repeat proBNP as it was 12,046 2 days ago - Strict ins and outs - Daily weight - Maintain potassium above 4 and magnesium of 2 #Streptococcus bacteremia -Appreciate ID recommendations - Continue ceftriaxone - Will likely need long-term antibiotics Quality Metrics DVT PROPHYLAXIS Risk Assessment Scores and Dates: VTE Time Out IMPROVE SCORE: 3 (01/18/2025 8:58 PM) Interpretation - High Risk Chemical Prophylaxis heparin (porcine) IV infusion 25,000 units in 500 mL 0.45% NaCl (premix) Intravenous Continuous heparin (porcine) 1000 unit/mL injection 2,300 Units Intravenous Every 6 hours PRN Mechanical Prophylaxis SCDs are ordered - Bilateral (Knee High) Patient declined SCD use, Please review Expected Date of Discharge 01/25/2025 Subjective Chief complaint Chief Complaint Patient presents with Chest Pain Patient is being seen for acute medical problems and follow-up for chronic medical issues as mentioned in the assessment and plan above. Overnight Events/Patient Discussion: States that she is asymptomatic at this time. Denies nausea, vomiting, or shortness of breath Objective Vitals: 01/19/25 1515 01/19/25 1601 01/19/25 203001/19/25 2319 BP: 139/72 (!) 153/74 (!) 123/58 Pulse: 79 84 67 Resp: 20 Temp: 98.2 ??F (36.8 ??C) 98.1 ??F (36.7 ??C) SpO2: 95% 96% 94% 01/20/25 0450 01/20/25 0756 01/20/25 0800 01/20/25 0807 BP: 132/74 133/72 Pulse: 71 70 Resp: Temp: (!) 95.1 ??F (35.1 ??C) 97.9 ??F (36.6 ??C) SpO2: 96% 99% Physical Exam Constitutional: General: She is not in acute distress. Appearance: She is not diaphoretic. HENT: Mouth/Throat: Pharynx: No oropharyngeal exudate. Eyes: General: No scleral icterus. Right eye: No discharge. Left eye: No discharge. Cardiovascular: Rate and Rhythm: Normal rate and regular rhythm. Heart sounds: No murmur heard. Pulmonary: Effort: Pulmonary effort is normal. No respiratory distress. Breath sounds: Normal breath sounds. No stridor. No wheezing or rales. Abdominal: General: Bowel sounds are normal. There is no distension. Palpations: Abdomen is soft. Tenderness: There is no abdominal tenderness. Relevant data reviewed Results from last 7 days Lab Units 01/20/25 0755 WHITE BLOOD CELL COUNT Thou/uL 6.9 HEMOGLOBIN g/dL 10.8* HEMATOCRIT % 34.2* PLATELET COUNT Thou/uL 178 Results from last 7 days Lab Units 01/20/25 0755 SODIUM mmol/L 144 POTASSIUM mmol/L 3.6 CHLORIDE mmol/L 108* CO2 mmol/L 24 BUN mg/dL 20 CREATININE mg/dL 0.9 EGFR 69 GLUCOSE mg/dL 71 CALCIUM mg/dL 9.3 Note: Some information is being carried forward from prior records for informational purposes only and is being cited so that efficiency, safety and quality of this patient's care is not compromised. Sign Brittany Sehehan MD 01/20/2025 9:32 AM * Teresa Membreno PA-C - 01/19/2025 2:11 PM EDT Hospital Medicine Downgrade Note Hospital Day: 2, Admit Date: 01/18/2025 Assessment and plan: Brief Summary: Patient is a 69 year old female with history of hypertension, hyperlipidemia, varicose veins, DVT 20 years ago who initially presented to OSH for shortness of breath and found to have NSTEMI and A-fib with RVR. Patient was transferred to and started on heparin gtt and admitted to CCU. Of note blood cultures at OSH positive, ID following. Patient deemed medically stable for floor level care 01/19 Plan by Problem: Assessment & Plan Cardiogenic shock (HCC) (Resolved: 01/19/2025) Pulmonary edema Type 1 non-ST elevation myocardial infarction (NSTEMI) ([facility]) Atrial fibrillation with RVR ([facility]) Systolic murmur ECHO EF 45%. Severe hypo to akinesis of the mid anterior, mid anterolateral, mid anterior septal and mid inferolateral segments. Mild aortic stenosis and mild to moderate tricuspid regurgitation. CXR trace left pleural effusion with left basilar subsegmental atelectasis. Minimal interstitial pulmonary edema. BNP 69460 Trop 647 -> 542 SBP 105 - Per interventional cardiology plan for RHC/LHC +/- PCI 01/20 and plan for n.p.o. at midnight - [id number] 2 - Continue heparin GTT - Aspirin 81 mg once daily - Lipitor 80 mg once daily - Lasix 40 mg IV twice daily - Lopressor 20 mg twice daily - Lipids in a.m. - Strict I's and O's, daily weights, telemetry - K>4 and Mg >2 Bacteremia due to Gram-positive bacteria Leukocytosis (Resolved: 01/19/2025) Afebrile, WBC 10.9 S/p azithromycin and cefepime - ID consulted, appreciate recommendations - Per previous notes BC at OSH grew gram-positive chains. Blood cultures 01/18 no growth to date. - Continue ceftriaxone - Trend labs Metabolic acidosis (Resolved: 01/19/2025) Lactic acidosis (Resolved: 01/19/2025) Lactic 4.4 -> 1.4 Bicarb 19 -> 25 - Trend labs Iron deficiency anemia Hgb 10.0 TIBC 172, iron 21, iron sat 12 - Per patient she had a colonoscopy a couple years ago and it was unremarkable - Given bacteremia will hold off on iron supplementation - Trend labs Diarrhea GERD (gastroesophageal reflux disease) - Will hold bowel regimen and if patient continues to have diarrhea consider sampling her stool - Protonix 40 mg once daily Barriers to patient transition/ medical necessity requiring continued inpatient stay: heparin gtt for NSTEMI and LHC Quality metrics: # Telemetry: Active Telemetry Order Indication - Critical Care/NICU/PACU Continue Telemetry?: Yes Cardiac (Rhythm Related) Afib with RVR # Diet: Diet Cardiac; Carb Counting 75g/meal [id number] kcal; 2 gm NA (Low Sodium); Low Fat (50gmfat, Low Chol, Low Sat Fat) Diet NPO; Meds # Code status: Full Code # Jacobsen catheter: No Active Urethral Catheter (Jacobsen) Order # Central lines: # Expected Date of Discharge: 01/25/2025 {Click to update EMILIANO: [id number]} VTE Time Out IMPROVE SCORE: 3 (01/18/2025 8:58 PM) Interpretation - High Risk Chemical Prophylaxis heparin (porcine) IV infusion 25,000 units in 500 mL 0.45% NaCl (premix) Intravenous Continuous heparin (porcine) 1000 unit/mL injection 2,300 Units Intravenous Every 6 hours PRN Mechanical Prophylaxis SCDs are ordered - Bilateral (Knee High) Anti-infectives (From admission, onward) Start Dose/Rate Route Frequency Ordered Stop 01/20/25 1100 cefTRIAXone (ROCEPHIN) 2 g in sodium chloride-MBP (NS) 100 mL IVPB-MBP Indication: Bacteremia 2 g 200 mL/hr over 30 Minutes Intravenous Every 24 hours 01/19/25 1222 Subjective: Chief complaint Chief Complaint Patient presents with Chest Pain Patient is being seen for acute medical problems and follow-up for chronic medical issues as mentioned in the assessment and plan above. Overnight Events/Patient Discussion: Patient reports she is doing well. States she had an episode of shortness of breath when heart ratewas elevated earlier this morning, denies any further episodes of shortness of breath. States she has had 3 episodes of diarrhea since this morning and reports she had taken senna last night. Also reports she has had ongoing diarrhea at home for years and typically takes Imodium prn. Reports she had DVT in both of her lower extremities over 20 years ago and previously was on Coumadin. Discussed plan with patient, denies other questions or complaints. Denies chest pain, shortness breath, abdominal pain, nausea, vomiting, dysuria, hematuria. Objective: Last 3 Filed Values 01/19/25 1100 01/19/25 1200 01/19/25 1300 BP: (!) 125/57 (!) 152/79 105/70 Pulse: 76 77 76 Resp: 20 Temp: 97.6 ??F (36.4 ??C) TempSrc: Tympanic SpO2: 94% 95% 94% SpO2 Min: 92 % Max: 98 % O2 Device: room air (none) Flow (L/min) (Oxygen Therapy): 2 Weight: on admission: 74.4 kg (164 lb), (01/18/2025 10:08 AM) Recent: 77.1 kg (170 lb), (57:00 AM) Last Documented Bowel Movement - 01/19/25 (01/19/25 1200) Intake/Output Summary (Last 24 hours) at 01/19/2025 1412 Last data filed at 01/19/2025 1400 Gross per 24 hour Intake 1946.85 ml Output 3625 ml Net -1678.15 ml Physical Exam: Physical Exam Constitutional: General: She is awake. She is not in acute distress. Cardiovascular: Rate and Rhythm: Normal rate and regular rhythm. Heart sounds: Murmur heard. Pulmonary: Effort: Pulmonary effort is normal. Breath sounds: Normal breath sounds. Abdominal: General: Abdomen is flat. Bowel sounds are normal. Palpations: Abdomen is soft. Tenderness: There is no abdominal tenderness. Musculoskeletal: Right lower leg: Edema present. Left lower leg: Edema present. Comments: Trace edema in the bilateral lower extremities Skin: General: Skin is warm and dry. Neurological: Mental Status: She is alert. Psychiatric: Attention and Perception: Attention normal. Mood and Affect: Mood normal. Behavior: Behavior is cooperative. Scheduled medications 01/19/25 2:12 PM As needed medications: allopurinol, 200 mg, Oral, Daily aspirin, 81 mg, Oral, Daily atorvastatin, 80 mg, Oral, QAM [START ON 01/20/2025] cefTRIAXone, 2 g, Intravenous, Q24H furosemide, 40 mg, Intravenous, BID metoPROLOL TARTRATE, 25 mg, Oral, Q12H GOOD PANTOprazole, 40 mg, Oral, QAM senna-docusate, 2 tablet, Oral, Nightly acetaminophen bisacodyl heparin (porcine) lactulose naloxone Current infusions: heparin (porcine) IV infusion - low dose protocol, 12 Units/kg/hr, Last Rate: 13Units/kg/hr (01/19/25 1300) Diagnostic studies: I have reviewed the labs and ordered new labs if needed. Recent Labs 01/18/25 1039 01/18/25 2346 WBC 20.1* 10.9 HGB 11.1* 10.0* HCT 37.2 31.4* PLT 219 192 Recent Labs 01/18/25 1039 01/18/25 2346 01/19/25 0800 NA 141 143 -- K 3.8 3.3* 4.0 CO2 19* 25 -- CL 106 108* -- BUN 25* 23* -- CREAT 0.9 0.8 -- CALCIUM 8.8 9.0 -- MG 1.5* 1.7 2.2 BILITOT 0.5 -- -- ALKPHOS 110 -- -- AST 46 -- -- ALT 21 -- -- ALBUMIN 3.5 -- -- Recent Labs 01/18/25 1039 PTT 67* INR 1.1 Recent Labs 01/18/25 1643 INFLAV Not Detected INFLBV Not Detected Sign Teresa Membreno PA-C 01/19/2025 2:12 PM Patient's history, exam, assessement and plan discussed with Dr. Barnes whom also agreed with above plan as mentioned. A total of 45 minutes was spent on direct patient care, chart review including labs & imaging, coordination of care with consulting specialties, assessing risk and further development of this patient's treatment plan. This report was generated using [employer] Speaking dictation software. Although every attempt has been made by the provider to proofread this document, occasional misspellings and typographical errors may still be present. Cosigned by Vandana Barnes MD at 01/19/2025 6:44 PM EDT Associated attestation - Vandana Barnes MD - 01/19/2025 6:44 PM EDT Patient seen and examined at bedside. States her symptoms are improving. Plan for right heart cath and left heart cath tomorrow N.p.o. after midnight Continue aspirin and Lipitor Continue Lasix IV twice daily In regards to bacteremia Continue Rocephin ID following * Archana Carr RN - 01/19/2025 9:42 AM EDT 01/19/25 0937 General Information Admission Type inpatient Arrived From Hospital ([facility]) Initial Information How to be Addressed Karol Source of Information patient;health record Patient Aware of Diagnosis yes Designated Caregiver for Discharge Coordination Do You Have a Designated Caregiver for Discharge? 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) Resource/Environmental Concerns Resource/Environmental Concerns home accessibility Home Accessibility Concerns stairs to enter home;stairs to access bedroom or bathroom (2 BARNEY, 1 FOS to bed/bath) Transportation Concerns none Health Management Comorbidity Requiring Management Yes Disability/Function Hearing Difficulty or Deaf no Wear Glasses or Blind yes Vision Management glasses Concentrating, Remembering or Making Decisions Difficulty no Difficulty Communicating no Difficulty Eating/Swallowing no Walking or Climbing Stairs Difficulty no Dressing/Bathing Difficulty no Doing Errands Independently Difficulty (such as shopping) no Equipment Currently Used at Home none Functional Status, IADL Medications independent Meal Preparation independent Housekeeping independent Laundry independent Shopping independent Financial Resource Strain How hard is it for you to pay for the very basics like food, housing, medical care, and heating? Not very Do you have any concerns about your current source of income or benefits No Living Arrangement Living arrangement: Spouse Type of residence: Private residence Housing Stability In the last 12 months, was there a time when you were not able to pay the mortgage or rent on time?N In the past 12 months, how many times have you moved where you were living? 0 At any time in the past 12 months, were you homeless or living in a mcc (including now)? N Food Insecurity Within the past 12 months, you worried that your food would run out before you got the money to buymore. Never true Within the past 12 months, the food you bought just didn't last and you didn't have money to get more. Never true Transportation Needs In the past 12 months, has lack of transportation kept you from medical appointments or from getting medications? no In the past 12 months, has lack of transportation kept you from meetings, work, or from getting things needed for daily living? No Utilities In the past 12 months has the [employer], oil, or water [employer] threatened to shut off services in your home? No Interpersonal Safety Within the last year, have you been humiliated or emotionally abused in other ways by anyone? No Within the last year, have you been kicked, hit, slapped, or otherwise physically hurt by anyone? No Employment Are you currently employed? Yes Discharge Needs Assessment Readmission Within the Last 30 Days no previous admission in last 30 days Concerns to be Addressed denies needs/concerns at this time Concerns Comments declines HC/rehab needs Patient/Family Anticipates Transition to home with family Patient/Family Anticipated Services at Transition none Transportation Anticipated family or friend will provide Plan Plan Home- declines HC/rehab Patient/Family in Agreement with Plan yes * Vicki Burnham DO - 01/19/2025 6:50 AM EDT Critical Care Progress Note Assessment & Plan Assessment 69 y.o. w/ PMHx hypertension, HLD, obesity BMI 32, presenting with NSTEMI type II, course complicated by a fib with RVR Principal Problem: Cardiogenic shock (HCC) LOS: 1 day heparin (porcine) IV infusion - low dose protocol, 12 Units/kg/hr, Last Rate: 11 Units/kg/hr (01/19/25 0600) PLAN BY SYSTEM: NEUROLOGY FRIEDA Behavioral/Sedation scales CAM-ICU Delirium Present: Negative Mcnulty Agitation Sedation Scale (RASS) / Modified RASS: 0-->alert and calm PULMONARY Pulmonary Edema C/f Concurrent PNA OSH with B/L pleural effusions, pulmonary edema, poss PNA, negative for PE. Sat well on RA. CXR with cephalization of pulmonary vasculature, c/f pulmonary edema - Diuresis per cardiology - Abx per ID CARDIOVASCULAR Shock State - Resolved NSTEMI A fib with RVR Systolic Murmur [id number] 2 Presented with chest pain, found to have a fib rates 120s. EKG without ST elevations, though T waveinversions. HS trop 2K -> 4K, given heparin load and ASA 162, transferred to [facility] for additional care. EKG here NSR without ischemic changes. HS 647 -> 542. Lactic acidosis 4.4 -> 2.7 -> 1.4. proBNP 12,000. Echo showed LFEV 45%, severe hypo to akinesis of mid anterior, midanterolateral, mid anteroseptal, and mid inelateral segments, RV normal; mild aortic stenosis, mild to moderate TR, mildly elevated RV systolic pressure at 47. LVIDD 5.1; LVOT VTE 19.3. - Needs ischemic evaluation, interventional cardiology consulted, plan for cath 01/20 - Continue heparin gtt - ASA 81 daily - Atorvastatin 80mg daily - IV Lasix 40mg IV BID for goal -2 to 3L - s/p IV 5 lopressor x2 for AM a fib with RVR - Metoprolol 25mg tartrate BID, can up-titrate if needed - Added A1c and lipid panel RENAL/ ELECTROLYTE Intake/Output Summary (Last 24 hours) at 01/19/2025 0650 Last data filed at 01/19/2025 0600 Gross per 24 hour Intake 990.04 ml Output 2125 ml Net -1134.96 ml Metabolic Acidosis 2/2 Lactic Acidosis - resolved Bicarb 19 on admission, likely in setting of known lactic acidosis. GI Hx GERD - Oked for diet per cardiology - Cont home pantoprazole 40mg daily Ppx: PPI Diet: Diet Cardiac; 2 gm NA (Low Sodium); Low Fat (50gmfat, Low Chol, Low Sat Fat) Bowel regimen: Last BM: 01/19 ENDOCRINE A1c pending HEME/ONC Leukocytosis - resolved Likely reactionary, however also c/f for possible underlying infection Iron Deficiency Anemia States she is to date on colonoscopy screen; however iron panel shows BRENDAN. May need repeat sooner. - Consider IV iron / iron supplementation ID Bacteremia - gram + cocci in chains UA at OSH and here w/o evidence of infection. CT at OSH c/f poss lobar PNA in upper lobes. CXR herewithout lobar consolidation. MRSA negative. Gram + chains bacteremia likely 2/2 lobar PNA. - s/p azithromycin 01/18- - Bcx here no growth to date - Transition to ceftriaxone 1g daily, likely will need 14 day course - ID consult Diet: Cardiac Ambulation: PT ordered Sedation/Analgesia: N/I DVT ppx: heparin gtt HOB: ordered Ucler ppx: on PPI Glycemic control: N/I SBT: N/I BM: 01/19 Lines: Peripheral IV - Single Lumen (Adult) 01/18/25 1016 median vein (underside of arm), right 20 gauge (Active) Number of days: 1 Peripheral IV - Single Lumen (Adult) 01/18/25 1302 median vein (underside of arm), left 20 gauge (Active) Number of days: 1 Restraints: N/I Antibiotics: per ID Code status: FULL Disposition: Floors with cardiology following Sign: Vicki Burnham DO 01/19/2025 6:50 AM PGY2 Internal Medicine [facility] ICU Available via [employer] Text 24 HOUR UPDATE Admitted to ICU Presented with chest pain, found to have a fib rates 120s. EKG without ST elevations, though T waveinversions. HS trop 2K -> 4K, given heparin load and ASA 162, transferred to [facility] for additional care. EKG here NSR without ischemic changes. HS 647 -> 542. Lactic acidosis 4.4 -> 2.7 -> 1.4. proBNP 12,000. Echo showed LFEV 45%, severe hypo to akinesis of mid anterior, midanterolateral, mid anteroseptal, and mid inelateral segments, RV normal; mild aortic stenosis, mild to moderate TR, mildly elevated RV systolic pressure at 47. LVIDD 5.1; LVOT VTE 19.3. Echo performed showing LVEF 45% w/ WMA No chest pain overnight, no shortness of breath VSS off gtts HR 80s, BP 120-140/60-70 Sat 93% on RA Patient went into a fib with RVR at approx 730 AM. Complained of shortness of breath, pressure sensation on chest. Improved with improved rates. Converted to NSR after IV lopressor 5mg x2 and oral lopressor 25mg Objective Last Vitals: Pulse:80, Resp:16, BP:BP Min: 113/57 Max: 150/65 MAP: SpO2:93 % CVP: Temp Last 24 hrs: Temp Min: 97.5 ??F (36.4 ??C) Max: 99.5 ??F (37.5 ??C) Physical Exam Constitutional: General: She is not in acute distress. Appearance: She is not ill-appearing. Cardiovascular: Rate and Rhythm: Normal rate. Heart sounds: Murmur heard. Pulmonary: Effort: Pulmonary effort is normal. No respiratory distress. Breath sounds: No wheezing or rales. Abdominal: General: Abdomen is flat. Bowel sounds are normal. Palpations: Abdomen is soft. Musculoskeletal: Right lower leg: No edema. Left lower leg: No edema. Skin: General: Skin is warm. Neurological: General: No focal deficit present. Mental Status: She is alert and oriented to person, place, and time. Labs: Recent Labs 01/18/25 1039 01/18/25 2346 WBC 20.1* 10.9 HGB 11.1* 10.0* HCT 37.2 31.4* PLT 219 192 MCV 102* 98 MCH 30.5 31.3* MCHC 29.8* 31.8 RDW 15.0* 15.1* BASOABS 0.07 -- Recent Labs 01/18/25 1039 01/18/25 2346 BUN 25* 23* CREAT 0.9 0.8 NA 141 143 K 3.8 3.3* CO2 19* 25 CL 106 108* MG 1.5* 1.7 AST 46 -- ALT 21 -- PROT 6.6 -- Recent Labs 01/18/25 1039 PTT 67* INR 1.1 Medications Medication/MAR Report: Medications Scheduled Medication Ordered Dose/Rate, Route, Frequency Last Action allopurinol (ZYLOPRIM) tablet 200 mg 200 mg, PO, Daily Ordered atorvastatin (LIPITOR) tablet 80 mg 80 mg, PO, QAM Given, 80 mg at 01/18 1938 cefepime (MAXIPIME) 2 g in sodium chloride-MBP (NS) 100 mL IVPB-MBP 2 g, IV, Q8H New Bag, 2 g at 01/19 0429 PANTOprazole (PROTONIX) EC tablet 40 mg 40 mg, PO, QAM Ordered senna-docusate (SENNA-S) 8.6-50 MG tablet 2 tablet 2 tablet, PO, Nightly Given, 2 tablet at 01/18 2108 vancomycin (VANCOCIN) IV dosing PER PHARMACY PROTOCOL No Dose/Rate, Protocol, Pharmacy Protocol Orders Ordered vancomycin (VANCOCIN) 1,500 mg in sodium chloride (NS) 0.9 % 250 mL IVPB-WTD 1,500 mg, IV, Q24H Ordered Continuous Medication Ordered Dose/Rate, Route, Frequency Last Action heparin (porcine) IV infusion 25,000 units in 500 mL 0.45% NaCl (premix) 12 Units/kg/hr, IV, Continuous Rate/Dose Verify, 11 Units/kg/hr at 01/19 0600 PRN Medication Ordered Dose/Rate, Route, Frequency Last Action acetaminophen (TYLENOL) tablet 650 mg 650 mg, PO, Q6H PRN Given, 650 mg at 01/19 0246 bisacodyl (DULCOLAX) suppository 10 mg 10 mg, RE, Daily PRN Ordered heparin (porcine) 1000 unit/mL injection 2,300 Units 30 Units/kg, IV, Q6H PRN Ordered lactulose (ENULOSE) 10 gm/15 mL solution 20 g 30 mL, PO, Q4H PRN Ordered naloxone (NARCAN) 0.4 mg/mL injection 0.4 mg 0.4 mg, IV, Q5 Min PRN Ordered Cosigned by Vinicio Bedolla MD at 01/19/2025 2:36 PM EDT Associated attestation - Vinicio Bedolla MD - 01/19/2025 2:36 PM EDT I have personally interviewed and examined the patient and reviewed Dr. Burnham's note. I agree with the history, exam, assessment, and plan as detailed in the Resident/Fellow's note with the followingadditions/exceptions/observations. SCAI Stage A Overall Assessment: Karol Frias is a 69 y.o. female with a past medical history of hypertension and varicose veins who was transferred to [facility] for concerns for an NSTEMI. She initially presented to [facility] complaining of pain in the center of her chest. Lab work revealed an elevated troponin and she was transferred to [facility] after being loaded with aspirin and started on heparin. A CT was also done and was negative for pulmonary embolism. In speaking with her it turns out that she has had intermittent shaking chills over the last 2 years. This has happened to her maybe 3 or 4 times. These events are associated with urinary incontinence and seem to her self resolve. She has not seen aphysician for these complaints. She has no known cardiac history and has never seen a station operator or had an echocardiogram. In the emergency department her troponin was found to be elevated but was downtrending. Her ECG showed no signs of acute ischemia. Her initial lactic acid level was 4.4 which prompted the CCU evaluation. A [id number] ultrasound performed in the emergency department had concerns for low ejection fraction. At the time my exam she appeared warm and well-perfused which was discrepant to her lab values her cardiac exam was significant for a 3/6 crescendo decrescendo systolic murmur best heard at the rightand left upper sternal borders without radiation to the carotids. Her second heart sound was intactand I believe this exam is likely consistent with mild or moderate aortic stenosis. Due to concerns for normotensive shock with a possible cardiogenic component she was brought to theCCU for further management. An echocardiogram was then performed which showed an ejection fraction of 45% with significant anterior wall motion abnormalities possibly consistent with an LAD MO. The echo is also consistent with normal left atrial filling pressure with elevated pulmonary pressures, implying pulmonary hypertension discrepant to her left atrial pressure. While she was undergoing workup at [facility] her initial blood cultures drawn at outside hospital were found to be positive for gram-positive bacteria and she was started on broad-spectrum antibiotics. Her second lactate was downtr ending to 2.7. 01/19: Lactic acid level cleared, NT proBNP elevated at 12,000. Echocardiogram showed mildly reducedejection fraction with wall motion abnormalities in the LAD territory. This morning she went into atrial fibrillation with rapid ventricular response. She was given beta-blockers and converted to sinus rhythm. Plan: Clinically improving, lactic acid level has cleared. She is appropriate for transfer to floors withtelemetry Start aspirin 81 mg for presumed coronary disease Continue high intensity statin with atorvastatin 80 mg Continue ceftriaxone for gram-positive cocci in outside hospital blood cultures. We need to follow-up with the outside hospital to see what species is grows (it may be contaminant) She still appears volume overloaded. Continue IV furosemide 40 mg twice daily Continue beta-pablo with metoprolol 25 mg twice daily. Plan to transition to metoprolol succinatetomorrow Continue heparin for anticoagulation for now Plan for left heart catheterization tomorrow She will need anticoagulation for her atrial fibrillation and I recommend starting a DOAC after hercath The ICU bundle was reviewed at the bedside during rounds. VTE PPx: Heparin Lines: No invasive lines or catheters I personally reviewed: No new imaging today This patient is critically ill due to: Undifferentiated shock, NSTEMI I have spent 45 minutes of critical care time directly on patient care today, excluding procedures. Vinicio Bedolla M.D. 01/19/2025 * El Mooney, CharanjitD - 01/18/2025 2:51 PM EDT Pharmacokinetic Consult - Vancomycin Dosing Karol Frias is a 69 y.o. female who has been consulted for vancomycin dosing, goal AUC24 of 400-600 for sepsis. Height: Last ht 01/18/25 1.549 m (5' 1 ) Weight: Last wt 01/18/25 78 kg (171 lb 15.3 oz) IBW: [place] body weight: 47.8 kg (105 lb 6.1 oz) Adjusted ideal body weight: 59.9 kg (132 lb 0.2 oz) Labs: Creatinine Date/Time Value Ref Range Status 01/18/2025 10:39 AM 0.9 0.4 - 1.1 mg/dL Final Blood Urea Nitrogen (BUN) Date/Time Value Ref Range Status 01/18/2025 10:39 AM 25 (H) 8 - 21 mg/dL Final No results found for: VANCOTR , VANCTR , VANCORAND , VANRAN , VANCOPK , VANCPK Estimated Creatinine Clearance: 55.8 mL/min (by C-G formula based on SCr of 0.9 mg/dL). Assessment: Analysis using Citilog gives the following predicted pharmacokinetic parameters: CL: 2.47 L/hr V: 51.4 L T 1/2: 15.8 hours At this time, give a loading dose of 1750 mg. This will be followed by a regimen of 1500 mg IV every 24 hours, which is predicted to result in an AUC24 of 523 (correlated steady-state trough of 13 mcg/mL). The pharmacy team will plan to obtain a level within 48 hours. Pharmacy will continue to follow the patient's renal function, culture results, and clinical progress daily. El Mooney PharmD A Document for: [facility] Title: Vancomycin: Pharmacy to Dose_[facility] Purpose: To provide instruction on pharmacy to dose vancomycin service Scope: Prescribers and pharmacists Protocol: Prescriber Responsibilities: Prescribers may order ???vancomycin dosing by pharmacy??? to authorize pharmacy to manage vancomycin therapy. Prescriber must document the indication for vancomycin. Pharmacist Responsibilities: For orders entered as ???vancomycin dosing by pharmacy???, the pharmacist will dose, monitor, and modify vancomycin therapy. The pharmacist will check the patient???s record for doses of vancomycin administered prior to the implementation of the protocol, will determine the time of administration of the first protocol dose, and will, if necessary, call the nurse to schedule doses accordingly. Pharmacists will demonstrate competency on a regular basis. All vancomycin orders and related labs should be ordered per protocol, no cosign required. Protocol Exclusions: Adult patients weighing less than 20 kg Trough-based monitoring in conjunction with the provider and an infectious diseases clinical pharmacist should be utilized. Pediatric patients (less than 16 years of age) An infectious diseases clinical pharmacist should be contacted for assistance with dosing. patients (Less than 28 days of age) Contact [facility] for assistance. AUC Therapeutic Drug Monitoring: An AUC/JEAN PIERRE (area under the curve/minimum inhibitory concentration) ratio of greater than or equal to 400 is considered the optimal pharmacokinetic/pharmacodynamic efficacy target for vancomycin. The literature supporting this target is mainly derived from studies of patients with MRSA bloodstream infections. An JEAN PIERRE of less than or equal to 1 mg/L should be assumed for empiric dosing. Alternative agents arerecommended when the JEAN PIERRE is 2 mg/L or greater. Data suggests that an AUC less than 400 potentiates the emergence of resistance. A target AUC of 400 to 600 is recommended to achieve clinical efficacy while improving patient safety. For some infections, such as INGREDIENT SPECIALIST infections, a higher range of 500-600 may be considered if possible. Trough-based monitoring is no longer recommended for most patients based on efficacy and nephrotoxicity data. Bayesian dosing software, like InsightRx???,utilizes a population pharmacokinetic model coupled with an individual patient???s observed drug concentrations to calculate the patient???s optimal vancomycin dosing regimen. InsightRx??? should be utilized to dose all vancomycin regimens unless otherwise noted in the protocol. Vancomycin Dosing Recommendations Dosing: Available Doses: 500 mg, 750 mg, 1000 mg, 1250 mg, 1500 mg, 1750 mg, 2000 mg, 2500 mg Doses should be rounded to the nearest 250 mg Maximum Doses: Maximum loading dose: 2500 mg Maximum maintenance dose: 2000 mg Minimum Dose: 500 mg Dosing Frequencies: Every 6, 8, 12, 18, 24, 36, or 48 hours For ease of administration, consider preferentially using every 8, 12, or 24- hour dosing regimens when possible and if clinically appropriate based on pharmacokinetic estimates. All doses should be based on actual body weight Vancomycin Infusion Times: Doses of 1.5 g or less will be infused over 1.5 hours. Doses of 1.75 to 2 g will be infused over 2 hours Doses of 2.5 g will be infused over 2.5 hours Loading Doses: Loading doses should be administered to all patients who are not currently on vancomycin. Loading doses are solely dependent on the weight of the patient. Renal function should not be used as a deciding factor to order or the amount of the loading dose. (See Table 1) Loading doses can be entered in InsightRx??? within the loading dose feature to check that simulated PK exposure predictions fall within the target range. The loading dose feature in InsightRx??? will only appear when no doses have been documented in the patient???s chart. Table 1 Loading doses for patients based on actual body weight: Weight: Vancomycin Dose: 20-29 kg 500 mg 30-39 kg 750 mg 40-49 kg 1000 mg 50-59 kg 1250 mg 60-69 kg 1500 mg 70-79 kg 1750 mg 80-99 kg 2000 mg 100 kg or more 2500 mg Maintenance Doses: InsightRx??? will be utilized to determine maintenance regimens in all patients with stable renal function using the DoseAssist function. InsightRx??? recommends doses based on the patient???s age, weight, renal function, predicted trough and AUC, and richly sampled vancomycin data as the Bayesian prior. InsightRx??? will calculate the predicated 24-hour AUC at steady state (AUC24, ss), the trough concentration at steady state (Ctrough, ss), the probability of an AUC24, ss greater than or equal to 400 (PAUC), the probability of Ctrough,ss greater than or equal to 20 mg/L (Pconc), and the probability of a nephrotoxic event (Tox.). Pharmacists should aim to keep the Pconc and Tox. column values as close to 0% as possible, while maximizing PAUC closest to 100%. Maintenance Doses & Unstable Renal Function: When dosing patients with acute kidney injury or unstable renal function, InsightRx??? should stillbe utilized to determine the appropriate regimen. In the setting of significant renal impairment, an orange warning banner will populate in InsightRx??? indicating when the custom dose feature should be utilized. The custom dose feature in InsightRx??? must be utilized as the DoseAssist feature will no longer populate recommendations in these scenarios. The custom dose feature can be used to evaluate the patient???s predicted exposure metrics based onthe various regimens entered. In patients with fluctuating renal function, a [id number] strategy can be utilized. Target AUC Concentrations: A target AUC of 400 to 600 is recommended for all patients except those with INGREDIENT SPECIALIST infections. For INGREDIENT SPECIALIST infections, a higher range of 500-600 may be considered if possible. Therapeutic Drug Monitoring: Initial vancomycin concentration levels should be drawn early in therapy, within the first 24-48 hours of therapy, generally after doses 2-4. It is no longer necessary to wait until steady state to collect levels. Earlier level collection allows for early target attainment and optimal efficacy. Levels should routinely be ordered to be collected with AM labs to decrease the number of lab sticks required. Levels may be interpreted from any time point between dose administrations (except during the infusion). All levels should be ordered as random levels. Vancomycin levels should be ordered within approximately 24 hours of due time. Levels should not beordered several days in advance. Doses should not be routinely held by nursing awaiting the return of a vancomycin level that is in process. If there is concern for supratherapeutic levels (i.e., in the setting of acute kidney injury) the vancomycin regimen should be discontinued pending evaluation of the level and doses re-ordered accordingly after the level results. Repeat Levels: Throughout the treatment course, repeat levels may be considered to be obtained within 24-48 hours: After a dosing regimen change During changes in renal function (SCr change by greater than or equal to 0.3 mg/dL OR urine output less than 0.5 mL/kg/hr over 6 hours) Hemodynamic instability If patients remain clinically stable with a documented AUC concentration in range, repeat levels only need to be rechecked every 5-7 days. Vancomycin Received at an Outside Hospital: Vancomycin doses that were received at an outside hospital or via home infusion can be manually entered into InsightRx??? along with any levels that were collected prior to admission to [facility]. This will allow InsightRx??? to recognize that the patient is likely already at steady state and the dosing r ecommendations in the DoseAssist feature will reflect this. If the doses administered or time since the last dose administered is unknown or there is a concernfor supratherapeutic levels, a random stat level should be collected prior to dosing vancomycin to ensure level is not supratherapeutic. Laboratory Monitoring: Pharmacists may order serum creatinine, BUN, and vancomycin levels as needed per protocol. For new start vancomycin orders or for patients receiving vancomycin for less than 48 hours with anorder indication of pneumonia or sepsis that is secondary to suspected pneumonia, pharmacists may order a ???MRSA PCR Screen, Qualitative?? per protocol, no cosign required. The MRSA PCR nasal swab has a high negative predictive value for MRSA pneumonia. If the PCR resultsas ???not detected?? , the provider team should be contacted to discuss the need for vancomycin if no other clinical indications for vancomycin are present. Administration of doses should not be delayed pending a PCR result. A positive MRSA PCR nasal swab has a low positive predictive value and does not independently indicate the presence of MRSA pneumonia Vancomycin Dosing in Dialysis Patients requiring any form of dialysis will be dosed outside of the InsightRx??? software. All patients should receive weight-based loading doses as recommended in Table 1. Trough-based monitoring should be utilized for all patients requiring hemodialysis. Intermittent hemodialysis: Pre-hemodialysis vancomycin levels are preferred and should be drawn with scheduled morning labs when possible. Each dialysis session is expected to decrease the pre-dialysis level by 30-50%. Goal pre-hemodialysis level: 15-20 mcg/mL for all indications Maintaining pre-hemodialysis concentrations between 15 and 20 mcg/mL is likely to achieve an AUC of400 to 600 in the previous 24 hours. Random levels should be drawn within the first 72 hours of therapy and after the loading dose has been administered, prior to the next dialysis session. Generally, the weight-based maintenance doses from Table 2 in the protocol can be given after a hemodialysis session. In some instances, patients may have very low levels after receipt of a vancomycin loading dose. The calculation below can be utilized to help obtain a therapeutic level after a dialysis session. ? Concentration = Dose/VD (VD= 0.7 * weight) The supplemental dose is not intended to be a standard maintenance dose. Once a therapeutic regimen has been attained, levels should be monitored every 5-7 days in stable patients. Table 2 Hemodialysis Initial Maintenance Doses Weight Dose 20 - 59 kg 500 mg with each HD session 60 - 89 kg 750 mg with each HD session 90 kg or greater 1000 mg with each HD session Peritoneal Dialysis: For patients undergoing peritoneal dialysis and receiving intravenous vancomycin therapy, a level should be checked 24 hours after the initial dose. Subsequent doses should be administered based on the level. Frequencies of 48-72 hours may be expected. Patients receiving vancomycin intraperitoneally are excluded from this protocol. An infectious diseases clinical pharmacist should be contacted for assistance with dosing. Continuous Renal Replacement Therapy (CRRT): Patients receiving systemic vancomycin and continuous renal replacement therapy should be re-dosed with vancomycin when serum levels are or are expected to be less than 20 mcg/mL. The pharmacist should order a vancomycin random level approximately 12 hours after the initial dose. The pharmacist will re-dose accordingly based on level and monitor daily for CRRT interruptions or modifications. Monitoring Pharmacists will review patients daily (even if there is no pending level for that day). Daily reviews should include monitoring renal function, concomitant nephrotoxic agents (Table 3), microbiology, doses administered, pharmacy & relevant provider notes, and pending levels. In patients receiving dialysis or continuous renal replacement therapy, the pharmacist will review dialysis schedule & nephrology notes daily. Table 3 Potentially Nephrotoxic Agents: (list is not all-inclusive) Acyclovir [place] Aminoglycosides Loop Diuretics (usually higher doses) Amphotericin B and derivatives Methotrexate Angiotensin Inhibitors and Blockers NSAIDS (including WATSON-1 and WATSON-2 Inhibitors Calcineurin Inhibitors (cyclosporine, tacrolimus, sirolimus) Pentamidine Cidofovir Polymyxins (colistimethate and polymixin B) Contrast Media Piperacillin/tazobactam [place] Documentation Pharmacists should document in Epic their plan for dosing and monitoring vancomycin per pharmacy protocol. The summary note from InsightRx??? should be copied into the pharmacy protocol i-Vent and posted inthe chart as a note for all patients being dosed with InsightRx???. The Epic i-Vent template shouldbe utilized for all trough-based monitoring. At initiation of therapy With each level With each regimen change Patients being discharged on long-term intravenous vancomycin Pharmacists will ensure adequate handoff via verbal communication with external pharmacies/providers for patients who are being discharged on long-term IV vancomycin. The process for long-term vancomycin handoffs will be as follows: When a provider enters a discharge prescription for IV vancomycin, a RxDischarge In Basket message will fire. The pharmacist will review the discharge plans, including anticipated date of discharge and who will be taking over outpatient antibiotic therapy. Pharmacists will also review inpatient dosing regimen, recent labs, and anticipated plan for antibiotic therapy. Pharmacist will call long-term care pharmacy, home infusion service, etc. to provide handoff of thepatient???s vancomycin regimen, recent drug levels (provide AUC and corresponding estimated trough level listed in InsightRx???), and any other pertinent information to safely and effectively hand off therapy. From the Rx Discharge message, pharmacists will use the New i-Vent button to document handoff as follows: i-Vent type: ???Transitions of Care?? i-Vent subtype: ???Discharge Handoff?? Pharmacists will use SmartText ???.dischargevancomycin?? to document the handoff that occurred. Pharmacists will copy the i-Vent to a note so that it is visible in the patient???s chart. Three attempts should be made to provide the discharge handoff Each attempt you make should be documented in an ivent using the SmartText ???.dischargevancounsuccessful?? and copied into the chart as a note After three unsuccessful attempts, update the ivent using the ivent template and césar the BPA in the In Basket complete Downtime Procedures Should an Epic downtime occur, the following procedures should be followed. If internet is still accessible during the downtime, the RatioRx??? web-based platform can still be utilized ([email or web address]). All general concepts or restrictions in this protocol should still be followed during downtime Loading doses should be administered to all patients as recommended in Table 1 Table 4 should be referenced for the recommended initial maintenance dose and frequency based on the patient weight and creatinine clearance if the web-based platform is not available. This should beused in downtimes only when the InsightRx??? web-based platform is not available. In the setting of Epic and internet downtime, trough-based monitoring should be utilized Trough Goals: 15-20 mcg/mL for severe infections such as bacteremia, endocarditis, pneumonia, necrotizing fasciitis, or meningitis 10-20 mcg/mL for cellulitis, urinary tract infections Trough levels should be collected 1 hour prior to the 4th or 5th dose or sooner based on clinical judgement. Patients with impaired or unstable renal function should be dosed by level. Once the downtime has resolved, patients should be converted to AUC monitoring and doses administered during the downtime can be manually added to InsightRx???. Table 4 Creatinine Clearance (CrCl) Recommended Dose & Interval Greater than or equal to 100 mL/min & age less than 50 years 10-15 mg/kg IV Q8h Greater than or equal to 100 mL/min & age greater than 50 years 15-20 mg/kg IV Q12h 70-99 mL/min 15-20 mg/kg IV Q12h 50-69 mL/min 10-15 mg/kg IV Q12h 30-49 mL/min 15-20 mg/kg IV Q24h Less than 30 mL/min (not on hemodialysis) OR Unstable renal function 15-20 mg/kg IV once Obtain random level with AM labs or at 12- or 24-hour interval as applicable Re-dose at 10-15 mg/kg when level is estimated to be less than 20 mcg/mL documented in this encounter H&P Notes * Vicki Burnham DO - 01/18/2025 4:54 PM EDT Images from the original note were not included. MEDICAL CRITICAL CARE H&P LOS: 0 CODE: Code Status Procedures ??? Full Code Assessment and Plan Problem List Principal Problem: Cardiogenic shock (HCC) (POA: Yes) Resolved Problems: Assessment Karol Frias 69 y.o. w/ PMHx hypertension, HLD, obesity BMI 32, presenting with NSTEMI, c/f ACS, c/b lactic acidosis, c/f for acute decompensated HF Plan by system NEUROLOGY: FRIEDA Behavioral/Sedation scales Mcnulty Agitation Sedation Scale (RASS) / Modified RASS: 0-->alert and calm RESPIRATORY Pulmonary Edema OSH with B/L pleural effusions, pulmonary edema, poss PNA, negative for PE. Sat well on RA. CXR with cephalization of pulmonary vasculature, c/f pulmonary edema - Diuresis per cardiology CARDIOVASCULAR Shock State NSTEMI C/f cardiogenic pulmonary edema C/f cardiogenic shock New onset A. Fib Systolic Murmur [id number] 2 Presented with chest pain, found to have a fib rates 120s. EKG without ST elevations, though T waveinversions. HS trop 2K -> 4K, given heparin load and ASA 162, transferred to [facility] for additional care. EKG here NSR without ischemic changes. HS 647 -> 542. Lactic acidosis 4.4 -> 2.7. ?Stress induced cardiomyopathy vs ischemic dx. - Continue heparin gtt - TTE pending - proBNP ordered - Atorvastatin 80mg now, then daily - Additional lasix 20mg IV - Interventional cardiology consulted - Hold home metoprolol at present for c/f acute decompensation - Will discuss with caridology RE additional antiplatelet GASTROENTEROLOGY Hx GERD - NPO until evaluated by cardiology - Cont home pantoprazole 40mg daily Nutrition Diet NPO; Meds NEPHROLOGY Intake & Output Intake/Output Summary (Last 24 hours) at 01/18/2025 1800 Last data filed at 01/18/2025 1700 Gross per 24 hour Intake 48.33 ml Output 300 ml Net -251.67 ml Metabolic Acidosis 2/2 Lactic Acidosis Bicarb 19 on admission, likely in setting of known lactic acidosis. - BMP this PM ENDOCRINOLOGY Hx Gout - Continue home allopurinol in AM HEMATOLOGY/ ONCOLOGY Leukocytosis Likely reactionary, however also c/f for possible underlying infection INFECTIOUS DISEASE ?Bacteremia with GPC Received call from OSH that Bcx growing GPCs. Unclear if contaminant - CXR, UA, Bcx repeated here - Cefepime and vancomycin - MRSA swab Antibiotics Anti-infectives (From admission, onward) Start Dose/Rate Route Frequency Ordered Stop 01/19/25 1500 vancomycin (VANCOCIN) 1,500 mg in sodium chloride (NS) 0.9 % 250 mL IVPB-WTD 1,500 mg 166.7 mL/hr over 90 Minutes Intravenous Every 24 hours 01/18/25 1452 01/18/25 1500 cefepime (MAXIPIME) 2 g in sodium chloride-MBP (NS) 100 mL IVPB-MBP 2 g 33.3 mL/hr over 3 Hours Intravenous Every 8 hours 01/18/25 1432 01/18/25 1432 vancomycin (VANCOCIN) IV dosing PER PHARMACY PROTOCOL Pharmacy Protocol Orders Pharmacy Protocol Orders 01/18/25 1432 Plan to be discussed w/ Dr Vinicio Bedolla MD ICU Check-list Code: Code Status Procedures ??? Full Code Drips: heparin (porcine) IV infusion - low dose protocol, 12 Units/kg/hr, Last Rate: 9 Units/kg/hr (01/18/25 1700) Jacobsen: no Restraints: N/A GI ppx: continue home PPI DVT PPx: Heparin drip Lines: PIV Peripheral IV - Single Lumen (Adult) 01/18/25 1302 median vein (underside of arm), left 20 gauge (Active) Number of days: 0 Dispo: CCU Family update: please see separate plan of care / ACP documentation Subjective Patient is 69-year-old female with history hypertension, RA on Leflunomide, hyperlipidemia on atorvastatin, gout senting for chest pain, admitted for NSTEMI Patient states 2 days prior to arrival she began to feel chills and experience urinary incontinenceovernight. She felt overall malaise on the day prior to arrival and on the night prior to arrival, she felt such acute shortness of breath and substernal chest pain that did not subside. She presented to outside hospital and was found to have elevated troponins, CT scan was concerning for bilateralpleural effusions and increased interstitial markings suggestive of pulmonary edema. Additionally had groundglass opacities predominantly in apical portions of upper lobes due to pulmonary edema plusor minus pneumonia. She had mild hypotension and Hrs in 120s, unclear if she had hypoxia. CTA ruledout PE. Patient had elevated HS troponin 2528 -> 4408, patient given ASA 162, heparin bolus, andheparin gtt started. CBC noted 18.3 w/ left shift, Hgb 11.8, platelet 234, Na 143, K 3.4, Cl 109, anion gap 18, BUN 27, Cr 0.82, lactic acid 1.9, t bili 0.7, AST 33 ALT 13. Per chart hx, patient was in a fib with RVR was given diltiazem and then IV metoprolol. COVID/ FLU/ RSV negative at OSH. Patient then transferred to [facility] for higher level of care. At [facility], patient heart rate 60s, normal sinus rhythm, blood pressure 100 over 50s, saturating 95%on room air Lab work shows WBC 20.1 neutrophilic predominance, hemoglobin 11.1, platelet 219, sodium 141, potassium 3.8, bicarb 19, creatinine 0.9, magnesium 1.5, ALT and AST normal, lactic acid 4.4-2.7, high-sensitivity troponin 6 4 7-5 4 2, proBNP not pulled. Chest x-ray concerning for cephalization of central vessels concerning for pulmonary edema, no focal consolidations. UA noninfectious. Will be admitted to cardiac ICU for concern for NSTEMI, possible acute decompensated heart failure Outpatient meds Allorpurinol 100mg Atorvostatin 20mg Lasix 20mg Leflunomide 10 Metoprolol 50 pantoprazole 40 Objective Last Vitals Pulse:68,Resp:(!) 25,BP:110/59,SpO2:95 %,Weight:78 kg (171 lb 15.3 oz) Temp Last 24 hrs: Temp Min: 98.1 ??F (36.7 ??C) Max: 99.5 ??F (37.5 ??C) Last temp: 98.1 ??F (36.7 ??C) (Tympanic) Intake/Output Summary (Last 24 hours) at 01/18/2025 1800 Last data filed at 01/18/2025 1700 Gross per 24 hour Intake 48.33 ml Output 300 ml Net -251.67 ml Physical Exam Vitals reviewed. Constitutional: General: She is not in acute distress. Appearance: She is not ill-appearing or toxic-appearing. Cardiovascular: Rate and Rhythm: Normal rate and regular rhythm. Pulses: Normal pulses. Heart sounds: Murmur heard. Pulmonary: Effort: Pulmonary effort is normal. Breath sounds: No wheezing or rales. Abdominal: General: Abdomen is flat. Bowel sounds are normal. There is no distension. Palpations: Abdomen is soft. Tenderness: There is no abdominal tenderness. There is no guarding. Musculoskeletal: Right lower leg: No edema. Left lower leg: No edema. Neurological: General: No focal deficit present. Mental Status: She is alert and oriented to person, place, and time. Motor: No weakness. Labs/Micro/Imaging reviewed in EPIC Signed, Vicki Burnham DO Internal Medicine PGY2 MICU Eval Team Available via [employer] Text (preferred) and EPIC Chat Cosigned by Vinicio Bedolla MD at 01/19/2025 7:16 AM EDT Associated attestation - Vinicio Bedolla MD - 01/19/2025 7:16 AM EDT Please see attestation on separate note from same day. * Vivian Coates MD - 01/18/2025 3:19 PM EDT CARDIOLOGY CCU H&P NOTE Assessment & Plan Assessment Karol Frias is a 69 y.o. female with PMHx of HTN and varicose veins. Admitted initially due to concern for NSTEMI, found to have elevated lactate concerning for shock - mixed? Patient's lactate is concerning for low-flow state in setting of low EF and elevated troponin. However, we were updated that her Bcx grew GPC at OSH. Whether those are contaminants or not is unsure at this time. However, she did report chills yesterday evening as well as elevated WBC. We will judiciously diurese in case she is septic and treat broadly. Should her lactate remain elevated, she willneed inotropic support to assist wit diuresis. In regards to her elevated troponin and chest pain, she will need ischemic evaluation - though this may end up being stress CM as alludes her POCUS (need comprehensive echo). Systolic murmur could be that of aortic stenosis, need echo. Plan - Diuresing gently today; already got 20 mg IV once, can spot dose again while looking into sepsis - Continue heparin gtt for now, s/p ASA loading - Start vanco-cefepime; Bcx reordered, getting CXR, UA and respiratory panel - Repeat lactate; if not improved with above treatments patient will need inotrope assistance - milrinone - Echocardiogram ordered - Interventional cardiology consulted - Keeping NPO except meds for now Discussed with Dr Bedolla. Vivian Coates MD mophead trimmer and wrapper Subjective Chief Complaint CP History of Present Illness Karol Frias is a 69 y.o. female with PMHx of HTN and varicose veins. Presented to [facility] initially due to chest pain, center, pressure-like that started suddenly. Found to have elevated troponin and transferred her due to concern for NSTEMI, arrived loaded with ASA and on heparin gtt. Did chest CT negative for PE. Here she is CP-free for the most part. Trop peaked at 647, down to 542. ECG non ischemic. Lactate initially 4.4 then down to 2.7 after some diuresis. Later found Bcx grew GPC at OSH. POCUS shows at least moderately reduced EF. Does not smoke, drink or use drugs. No family history of cardiac disease. Review of Systems Review of systems negative unless stated above. Objective Past Medical History: Diagnosis Date CHF (congestive heart failure) (HCC) DVT (deep venous thrombosis) (HCC) Eczema Gout Hyperlipidemia Hypertension Osteoarthritis Polymyositis (HCC) No past surgical history on file. No family history on file. Social History[1] Medications Prior to Admission Medications: Prescriptions Prior to Admission[2] Current Medications / MAR: Medications Scheduled Medication Ordered Dose/Rate, Route, Frequency Last Action cefepime (MAXIPIME) 2 g in sodium chloride-MBP (NS) 100 mL IVPB-MBP 2 g, IV, Q8H Ordered furosemide (LASIX) injection 20 mg 20 mg, IV, Once Ordered senna-docusate (SENNA-S) 8.6-50 MG tablet 2 tablet 2 tablet, PO, Nightly Ordered vancomycin (VANCOCIN) IV dosing PER PHARMACY PROTOCOL No Dose/Rate, Protocol, Pharmacy Protocol Orders Ordered vancomycin (VANCOCIN) 1,500 mg in sodium chloride (NS) 0.9 % 250 mL IVPB-WTD 1,500 mg, IV, Q24H Ordered vancomycin (VANCOCIN) IVPB 1750 mg in 500 mL NS (premix) 1,750 mg, IV, Once New Bag, 1,750 mg at 01/18 1511 Continuous Medication Ordered Dose/Rate, Route, Frequency Last Action heparin (porcine) IV infusion 25,000 units in 500 mL 0.45% NaCl (premix) 12 Units/kg/hr, IV, Continuous Rate Change - High Risk Medication, 9 Units/kg/hr at 01/18 1429 PRN Medication Ordered Dose/Rate, Route, Frequency Last Action bisacodyl (DULCOLAX) suppository 10 mg 10 mg, RE, Daily PRN Ordered heparin (porcine) 1000 unit/mL injection 2,300 Units 30 Units/kg, IV, Q6H PRN Ordered lactulose (ENULOSE) 10 gm/15 mL solution 20 g 30 mL, PO, Q4H PRN Ordered naloxone (NARCAN) 0.4 mg/mL injection 0.4 mg 0.4 mg, IV, Q5 Min PRN Ordered Allergies[3] Last Vitals Pulse:69,Resp:16,BP:116/64,SpO2:96 %,Weight:78 kg (171 lb 15.3 oz) Temp Last 24 hrs: Temp Min: 98.7 ??F (37.1 ??C) Max: 99.5 ??F (37.5 ??C) No intake or output data in the 24 hours ending 01/18/25 1520 Physical Exam GENERAL: No acute distress. HENT: Anicteric. PERRLA. Moist oral membranes. NECK: No carotid bruits. JVP elevated CHEST: crackles to auscultation bilaterally. CARDIAC: Regular rate and rhythm. Nondisplaced PMI. Systolic ABDOMEN: Bowel sounds normal. Soft. Nontender. Nondistended. VASCULAR: + DP pulses. EXTREMITIES: Warm, well-perfused. 2+ bilateral edema. NEURO: Alert. No focal deficits appreciated. Relevant data reviewed: Results from last 7 days Lab Units 01/18/25 1039 SODIUM mmol/L 141 POTASSIUM mmol/L 3.8 CHLORIDE mmol/L 106 CO2 mmol/L 19* BUN mg/dL 25* CREATININE mg/dL 0.9 CALCIUM mg/dL 8.8 GLUCOSE mg/dL 112* EGFR 69 ALBUMIN g/dL 3.5 PROTEIN, TOTAL g/dL 6.6 BILIRUBIN TOTAL mg/dL 0.5 ALK PHOS U/L 110 ALT U/L 21 AST U/L 46 Lab Results Component Value Date MG 1.5 (L) 01/18/2025 Results from last 7 days Lab Units 01/18/25 1039 WHITE BLOOD CELL COUNT Thou/uL 20.1* HEMOGLOBIN g/dL 11.1* HEMATOCRIT % 37.2 PLATELET COUNT Thou/uL 219 NEUTROS PCT % 90.1 LYMPHS PCT % 3.8 MONOS PCT % 5.2 EOS PCT % 0.0 BASOS PCT % 0.3 Lab Results Component Value Date HSTNT 542 () 01/18/2025 HSTNT 647 () 01/18/2025 No results found for: PROBNP No results found for: HGBA1C No results found for: CHOL No results found for: HDL No results found for: LDLCALC No results found for: TRIG No results found for: CHOLHDL Imaging Studies: No results found. Sign: Vivian Coates MD 01/18/2025 3:20 PM Available via [employer] Text 01/04 at [employer] Room Operator Consult Service [1] [2] (Not in a hospital admission) [3] Allergies Allergen Reactions Codeine Unknown/Patient and Family Unable to Define Flagyl [Metronidazole] Unknown/Patient and Family Unable to Define Hydromorphone Unknown/Patient and Family Unable to Define Hydroxychloroquine Unknown/Patient and Family Unable to Define Methotrexate Unknown/Patient and Family Unable to Define Oxycodone Unknown/Patient and Family Unable to Define Tramadol Unknown/Patient and Family Unable to Define Cosigned by Vinicio Bedolla MD at 01/18/2025 7:14 PM EDT Associated attestation - Vinicio Bedolla MD - 01/18/2025 7:14 PM EDT I have personally interviewed and examined the patient and reviewed Dr. Coates's note. I agree withthe history, exam, assessment, and plan as detailed in the Resident/Fellow's note with the following additions/exceptions/observations: Brief review: Karol Frias is a 69 y.o. female with a past medical history of hypertension and varicose veins who was transferred to [facility] for concerns for an NSTEMI. She initially presented to [facility] complaining of pain in the center of her chest. Lab work revealed an elevated troponin and she was transferred to [facility] after being loaded with aspirin and started on heparin. A CT was also done and was negative for pulmonary embolism. In speaking with her it turns out that she has had intermittent shaking chills over the last 2 years. This has happened to her maybe 3 or 4 times. These events are associated with urinary incontinence and seem to her self resolve. She has not seen a physician for these complaints. She has no known cardiac history and has never seen a cardiologistor had an echocardiogram. In the emergency department her troponin was found to be elevated but was downtrending. Her ECG showed no signs of acute ischemia. Her initial lactic acid level was 4.4 which prompted the CCU evaluation. A [id number] ultrasound performed in the emergency department had concerns for low ejection fraction. At the time my exam she appeared warm and well-perfused which was discrepant to her lab values her cardiac exam was significant for a 3/6 crescendo decrescendo systolic murmur best heard at the rightand left upper sternal borders without radiation to the carotids. His second heart sound was intactand I believe this exam is likely consistent with mild or moderate aortic stenosis. Due to concerns for normotensive shock with a possible cardiogenic component she was brought to theCCU for further management. An echocardiogram was then performed which showed an ejection fraction of 45% with significant anterior wall motion abnormalities possibly consistent with an LAD MO. The echo is also consistent with normal left atrial filling pressure with elevated pulmonary pressures, implying pulmonary hypertension discrepant to her left atrial pressure. While she was undergoing workup at [facility] her initial blood cultures drawn at outside hospital were found to be positive for gram-positive bacteria and she was started on broad-spectrum antibiotics. Her second lactate was downtr ending to 2.7. Last Echo 01/18/2025: LVEF: 45% with wall motion abnormalities RV: Normal function LVIDd: 5.1 cm SCAI Stage A/B Overall Assessment: Her lactic acid level is decreasing implying that she is now perfusing normally. Based on her ejection fraction and the fact that she only has mild aortic stenosis on her echocardiogram I believe this is more likely a distributive shock despite her normal blood pressures at this time. We may have missed the period of significant hypotension. We will treat her for presumed septic shock with antibiotics and can initiate vasopressors if needed although she has shown that she is perfusing. Plan: Neuro No active issues Pulmonary No active issues Cardiovascular Continue atorvastatin Hold diuresis given normal left atrial pressure on echo and lack of significant oxygen requirement She will likely need a right heart cath to workup for pulmonary hypertension at some point but it does not need to be done now Continue treatment for potential septic shock. If she becomes more hypotensive can initiate norepinephrine for support Will need outpatient follow-up for aortic stenosis. Continue heparin for anticoagulation for 48 hours for NSTEMI GI No active issues Can start bowel regimen Renal No active issues, creatinine appears to be at baseline Endocrine Check hemoglobin A1c Infectious Disease Await speciation and sensitivities of bacteria cultured at outside hospital I am not sure what the source of her infection is at this time and we will need to continually evaluate Broad-spectrum antibiotics with vancomycin and cefepime for now Hem/Onc No active issues Musculoskeletal Continue home allopurinol for history of gout The ICU bundle was reviewed at bedside during rounds. VTE Ppx: Heparin Lines: No invasive lines or catheters I personally reviewed: [id number] ultrasound images This patient is critically ill due to: Distributive shock I have spent 55 minutes of critical care time directly on patient care today, excluding procedures. Vinicio Bedolla M.D. 01/18/2025 documented in this encounter Consult Notes * Meron Liu, RD - 01/21/2025 7:18 AM EDT [facility] Nutrition Note Consult received per profile risk screen score, however score of 0. Skin intact and diet in place with no noted issues with po/tolerance. Will complete consult at this time and evaluate patient per protocol. Weight: Wt Readings from Last 15 Encounters: 01/21/25 72 kg (158 lb 11.7 oz) No noted report of recent weight loss. Sign: Meron Liu RD 01/21/2025 7:18 AM * Gera Sanchez MD - 01/20/2025 7:03 AM EDT Images from the original note were not included. Date of Consult: 01/20/2025 Patient's Primary Care Physician: Kenisha Ozuna MD Reason for Admission Admit Date: 01/18/2025 9:48 AM Assessment & Plan Assessment Cardiomyopathy, EF 45% Chest pain Bacteremia-group B strep Hypertension Hyperlipidemia Fevers, chills Mild aortic stenosis Lactic acidosis, cleared NSTEMI Plan Planning for cardiac catheterization today. Continue atorvastatin. Monitor I's and O's, weights. Heparin drip for 48 hours. Appreciate ID recommendations regarding bacteremia. Continue metoprolol 25 mg twice daily. Appears relatively euvolemic. Subjective Chief Complaint NSTEMI History of Present Illness Karol is a 69-year-old female with a history of DVT, hypertension, hyperlipidemia, obesity, presented to outside hospital with throbbing chest pain to her sternum with associated shortness of breath.Patient also describing shaking chills and fevers. Patient transferred to [facility] for further evaluation. Elevated high-sensitivity troponin of 647. Lactic acid of 4.4.Echo with mildly reduced EF of 45% and mild valvular disease. Patient found to be bacteremic at outside hospital with group B strep. Initiated on antibiotics. Patient clinically improved with antibiotics. Transferred to the floor. Planning for cardiac catheterization. She is nervous this morning. Denies any chest pain or shortness of breath. No PND, orthopnea or edema. Review of Systems 10 point review of systems otherwise negative in detail Objective Past Medical History: Diagnosis Date CHF (congestive heart failure) (HCC) DVT (deep venous thrombosis) (HCC) Eczema Gout Hyperlipidemia Hypertension Osteoarthritis Polymyositis (HCC) Past Surgical History: Procedure Laterality Date ORTHOPEDIC SURGERY Right rotator cuff SPINE SURGERY No family history on file. Social History[1] Medications Prior to Admission Medications: Prescriptions Prior to Admission[2] Current Medications / MAR: Medications Scheduled Medication Ordered Dose/Rate, Route, Frequency Last Action allopurinol (ZYLOPRIM) tablet 200 mg 200 mg, PO, Daily Given, 200 mg at 01/20 836 aspirin chewable tablet 81 mg 81 mg, PO, Daily Given, 81 mg at 01/20 836 atorvastatin (LIPITOR) tablet 80 mg 80 mg, PO, QAM Given, 80 mg at 01/20 522 cefTRIAXone (ROCEPHIN) 2 g in sodium chloride-MBP (NS) 100 mL IVPB-MBP 2 g, IV, Q24H Ordered furosemide (LASIX) injection 40 mg 40 mg, IV, BID Given, 40 mg at 01/19 1143 metoPROLOL TARTRATE (LOPRESSOR) tablet 25 mg 25 mg, PO, Q12H GOOD Given, 25 mg at 01/19 2031 PANTOprazole (PROTONIX) EC tablet 40 mg 40 mg, PO, QAM Given, 40 mg at 01/20 522 [Provider Held] senna-docusate (SENNA-S) 8.6-50 MG tablet 2 tablet On hold since yesterday at 1431 until manually unheld; held by Rey Harp Reason: Other - Comment requiredHold Comment: Diarrhea On hold since yesterday at 1431 until manually unheld Hold reason: Other - Comment required, Hold comment: Diarrhea 2 tablet, PO, Nightly Given, 2 tablet at 01/19 2108 Continuous Medication Ordered Dose/Rate, Route, Frequency Last Action heparin (porcine) IV infusion 25,000 units in 500 mL 0.45% NaCl (premix) 12 Units/kg/hr, IV, Continuous Rate/Dose Verify, 14 Units/kg/hr at 01/20 559 PRN Medication Ordered Dose/Rate, Route, Frequency Last Action acetaminophen (TYLENOL) tablet 650 mg 650 mg, PO, Q6H PRN Given, 650 mg at 01/19 2031 bisacodyl (DULCOLAX) suppository 10 mg 10 mg, RE, Daily PRN Ordered heparin (porcine) 1000 unit/mL injection 2,300 Units 30 Units/kg, IV, Q6H PRN Ordered lactulose (ENULOSE) 10 gm/15 mL solution 20 g 30 mL, PO, Q4H PRN Ordered naloxone (NARCAN) 0.4 mg/mL injection 0.4 mg 0.4 mg, IV, Q5 Min PRN Ordered Allergies[3] Physical Exam Vitals: 01/19/25 2031 01/19/25 2319 01/20/25 0450 01/20/25 0601 BP: (!) 153/74 (!) 123/58 132/74 BP Location: Right arm Right arm Right arm Patient Position: Lying Lying Lying Pulse: 84 67 71 Resp: Temp: 98.1 ??F (36.7 ??C) (!) 95.1 ??F (35.1 ??C) TempSrc: Tympanic Tympanic SpO2: 94% 96% Weight: 74.4 kg (164 lb 0.4 oz) Height: Intake/Output Summary (Last 24 hours) at 01/20/2025 0703 Last data filed at 01/20/2025 0559 Gross per 24 hour Intake 1343.48 ml Output 2350 ml Net -1006.52 ml GENERAL: No acute distress. HEENT: Anicteric. PERRLA. Moist oral membranes. NECK: No carotid bruits. JVP normal CHEST: Nontender. Clear to auscultation bilaterally. CARDIAC: Regular rate and rhythm. Nondisplaced PMI. 3 out of 6 systolic murmur ABDOMEN: Bowel sounds normal. Soft. Nontender. Nondistended. VASCULAR: 2+ DP pulses. EXTREMITIES: Warm, well-perfused. No edema. SKIN: No rashes NEURO: A/Ox3. Grossly nonfocal. Relevant data reviewed: Results from last 7 days Lab Units 01/19/25 0800 01/18/25 2346 01/18/25 1544 01/18/25 1039 SODIUM mmol/L -- 143 -- 141 POTASSIUM mmol/L 4.0 3.3* -- 3.8 CHLORIDE mmol/L -- 108* -- 106 CO2 mmol/L -- 25 -- 19* BUN mg/dL -- 23* -- 25* CREATININE mg/dL -- 0.8 -- 0.9 CALCIUM mg/dL -- 9.0 -- 8.8 GLUCOSE mg/dL -- 83 -- 112* GLUCOSE, POC mg/dL -- -- 96 -- EGFR -- 80 -- 69 ALBUMIN g/dL -- -- -- 3.5 PROTEIN, TOTAL g/dL -- -- -- 6.6 BILIRUBIN TOTAL mg/dL -- -- -- 0.5 ALK PHOS U/L -- -- -- 110 ALT U/L -- -- -- 21 AST U/L -- -- -- 46 Lab Results Component Value Date MG 2.2 01/19/2025 Results from last 7 days Lab Units 01/18/25 2346 01/18/25 1039 WHITE BLOOD CELL COUNT Thou/uL 10.9 20.1* HEMOGLOBIN g/dL 10.0* 11.1* HEMATOCRIT % 31.4* 37.2 PLATELET COUNT Thou/uL 192 219 NEUTROS PCT % -- 90.1 LYMPHS PCT % -- 3.8 MONOS PCT % -- 5.2 EOS PCT % -- 0.0 BASOS PCT % -- 0.3 Lab Results Component Value Date PROBNP 12,046 (H) 01/18/2025 Lab Results Component Value Date HGBA1C 5.3 01/18/2025 ECG: Normal sinus rhythm, low voltage QRS Imaging Studies: TTE-01/18/2025- Left ventricular systolic function is mildly decreased. The quantitative EF by 2D Escobar biplane is 45%. There is severe hypo to akinesis of the mid anterior, mid anterolateral, mid anteroseptal andmid inferolateral segments. Left atrial filling pressure is normal. Right ventricular systolic function is normal. There is mild aortic stenosis. The calculated valve area is 1.6 cm2, with a peak velocity of 2.0 m/s, a mean gradient of 9.5 mmHg, and a dimensionless index of 0.45. There is mild to moderate tricuspid regurgitation. The estimated right ventricular systolic pressure is mildly elevated at 47 mmHg. There is no previous study for comparison in our system. Sign: Gera Sanchez MD 01/20/2025 7:03 AM [1] Social History Tobacco Use Smoking status: Never Smokeless tobacco: Never Substance Use Topics Alcohol use: Not Currently Drug use: Never [2] Medications Prior to Admission Medication Sig Dispense Refill Last Dose/Taking allopurinol (ZYLOPRIM) 100 mg tablet Take 2 tablets (200 mg total) by mouth daily. 01/17/2025 Morning atorvastatin (LIPITOR) 20 MG tablet Take 1 tablet (20 mg total) by mouth every morning. 01/17/2025 Morning B-Complex Cap Take 1 capsule by mouth daily. 01/17/2025 Morning furosemide (LASIX) 20 MG tablet Take 1 tablet (20 mg total) by mouth every morning. 01/17/2025 Morning leflunomide (ARAVA) 10 MG tablet Take 1 tablet (10 mg total) by mouth every morning. 01/17/2025 Morning metoPROLOL SUCCINATE (TOPROL-XL) 100 MG 24 hr tablet Take 1 tablet (100 mg total) by mouth every morning. 01/17/2025 Morning PANTOprazole (PROTONIX) 40 MG EC tablet Take 1 tablet (40 mg total) by mouth every morning. 01/17/2025 Morning predniSONE (DELTASONE) 10 MG tablet Take 1 tablet (10 mg total) by mouth every morning. For 2 weeks01/17/2025 Morning silver sulfADIAZINE (SILVADENE) 1 % cream APPLY TO SKIN DAILY Past Month Vitamin D3 (CHOLECALCIFEROL) 50 MCG (2000 UT) tablet Take 1 tablet (2,000 Units total) by mouth daily. 01/17/2025 Morning [3] Allergies Allergen Reactions Codeine Unknown/Patient and Family Unable to Define Flagyl [Metronidazole] Unknown/Patient and Family Unable to Define Hydromorphone Unknown/Patient and Family Unable to Define Hydroxychloroquine Unknown/Patient and Family Unable to Define Methotrexate Unknown/Patient and Family Unable to Define Oxycodone Unknown/Patient and Family Unable to Define Tramadol Unknown/Patient and Family Unable to Define * Monica Martinez APRN - 01/19/2025 1:08 PM EDTAssociated Order(s): IP CONSULT TO INTERVENTIONAL CARDIOLOGY Images from the original note were not included. Interventional Cardiology / Cardiac Catheterization Consult Date of Consult: 01/19/2025 Patient's Primary Care Provider: Kenisha Ozuna MD Physician Requesting Consult: Vicki Burnham DO Reason for Consultation: Chest pain and Shortness of breath Name: Karol Frias Age: 69 y.o. Sex: female Race and Ethnicity Race White or Ethnic Group Not or Assessment & Plan Assessment 1. Chest pain 2. Dyspnea 3. Hypertension Karol Frias is a 69 year old female with a PMHx of DVT (not on anticoagulation), hypertension, hyperlipidemia, and obesity who presented to [facility] complaining of 8/10 throbbing chest pain in the mid to left sternum and shortness of breath. Lab work revealed elevated troponin, CT was neg ative for pulmonary embolism and she was transferred to [facility] ED after being loaded with aspirinand started on heparin. In [facility] ED, HsT 647 -> 542, EKG did not show signs of ischemia, and lactic acid 4.4. Patient is scheduled for right/left heart catheterization. In [facility] lactic acid reduced to 1.4, proBNP elevated 12,046, CXR showed trace left pleural effusion with left basilar subsegmental atelectasis, and minimal interstitial pulmonary edema. TTE showed decreased LVSF with EF 45%, RVSF normal, mildly thickened mitral and aortic valve leafletsand mild aortic stenosis. Adjusted CathPCI bleeding event risk: 3.4 % / Has -Bled score 3 Estimated Creatinine Clearance: 62.3 mL/min (by C-G formula based on SCr of 0.8 mg/dL). Risk of any post PCI TEMO 7.5%; risk of post PCI TEMO requiring dialysis 0.04% Plan The plan is to proceed with further evaluation with a cardiac angiogram [facility] +/- PCI, scheduled for 01/20/25, NPO at midnight, pre-procedure fluids, and pre- procedure aspirin medication protocol. The reason for the procedure, the alternatives (medical therapy, other non-invasive imaging tests) tothe procedure and the risks were discussed. The details of the procedure were discussed, benefits and risks explained include approximately a 1% risk of major complications including , heart attack, stroke, and bleeding/blood transfusion, vascular complications/perforation, loss of limb, need for emergency bypass or vascular surgery, allergic reactions, adverse reaction to contrast or sedation, emergency defibrillation, endotracheal intubation, renal insufficiency or failure, small risk oftemporary or permanent hemodialysis, etc. In the setting of a PCI, the need for prolonged dual antiplatelet therapy with heightened risk of bleeding and needing to defer elective surgery was all discu ssed with the patient. All questions answered, the patient wishes to proceed. Consent obtained, to be signed by performing MD prior to the procedure ASA or Contrast Dye Allergy: None Surgeries in the next 6 months: None Plan for right/left heart catheterization/coronary angiogram with possible PCI. Indication, risk and benefit discussed with the patient in detail. She voiced understanding and wishes to proceed. Informed consent obtained. Risks (including but not limited to , CVA, MO, emergency bypass surgery, acute kidney injury requiring hemodialysis, pericardial tamponade, ventricular arrhthymias, anaphylactic shock, vascular complications, bleeding, infection...) benefits and alternatives were discussed with the patient. She fully understands and has provided informed consent We discussed potential risk of contrast-induced nephropathy associated with her cardiac catheterization Please contact the labor employment associate if the patient develops intractable chest pain, clinical instability, or dynamic ECG changes. Subjective Chief Complaint Chest pain History of Present Illness Karol Frias is a 69 year old female with a PMHx of DVT (not on anticoagulation), hypertension, hyperlipidemia, and obesity who presented to [facility] complaining of 8/10 throbbing chest pain in the mid to left sternum and shortness of breath. She reports that she had been feeling cold, wit h chills and shaking that usually precedes an episode of urinary incontinence followed by extreme fatigue, however this most recent episode caused her chest pain. Lab work revealed elevated troponin,CT was negative for pulmonary embolism and she was transferred to [place] ED after being loaded with aspirin and started on heparin. In [facility] ED, HsT 647 -> 542, EKG did not show signs of ischemia,and lactic acid 4.4. Patient was transferred to CCU and is scheduled for right/left heart catheterization. Past History Past Medical History: Diagnosis Date CHF (congestive heart failure) (HCC) DVT (deep venous thrombosis) (HCC) Eczema Gout Hyperlipidemia Hypertension Osteoarthritis Polymyositis (HCC) Past Surgical History: Procedure Laterality Date ORTHOPEDIC SURGERY Right rotator cuff SPINE SURGERY No family history on file. Social History Tobacco Use Smoking status: Never Smokeless tobacco: Never Substance Use Topics Alcohol use: Not Currently Review of Systems Review of Systems Respiratory: Negative for cough, chest tightness and shortness of breath. Cardiovascular: Positive for leg swelling. Negative for chest pain. Neurological: Negative for dizziness, light-headedness and headaches. All other systems reviewed and are negative. Objective Medications Prior to Admission Medications: Prescriptions Prior to Admission[1] Medication/MAR Report: Medications Scheduled Medication Ordered Dose/Rate, Route, Frequency Last Action allopurinol (ZYLOPRIM) tablet 200 mg 200 mg, PO, Daily Given, 200 mg at 01/20 836 aspirin chewable tablet 81 mg 81 mg, PO, Daily Given, 81 mg at 01/20 836 atorvastatin (LIPITOR) tablet 80 mg 80 mg, PO, QAM Given, 80 mg at 01/20 836 cefTRIAXone (ROCEPHIN) 1 g in sodium chloride-MBP (NS) 100 mL IVPB-MBP 1 g, IV, Once New Bag, 1 g at 01/19 1253 cefTRIAXone (ROCEPHIN) 2 g in sodium chloride-MBP (NS) 100 mL IVPB-MBP 2 g, IV, Q24H Ordered furosemide (LASIX) injection 40 mg 40 mg, IV, BID Given, 40 mg at 01/19 1143 metoPROLOL TARTRATE (LOPRESSOR) tablet 25 mg 25 mg, PO, Q12H GOOD Given, 25 mg at 01/20 836 PANTOprazole (PROTONIX) EC tablet 40 mg 40 mg, PO, QAM Given, 40 mg at 01/20 836 senna-docusate (SENNA-S) 8.6-50 MG tablet 2 tablet 2 tablet, PO, Nightly Given, 2 tablet at 01/18 2108 Continuous Medication Ordered Dose/Rate, Route, Frequency Last Action heparin (porcine) IV infusion 25,000 units in 500 mL 0.45% NaCl (premix) 12 Units/kg/hr, IV, Continuous Rate/Dose Verify, 13 Units/kg/hr at 01/19 1300 PRN Medication Ordered Dose/Rate, Route, Frequency Last Action acetaminophen (TYLENOL) tablet 650 mg 650 mg, PO, Q6H PRN Given, 650 mg at 01/19 0246 bisacodyl (DULCOLAX) suppository 10 mg 10 mg, RE, Daily PRN Ordered heparin (porcine) 1000 unit/mL injection 2,300 Units 30 Units/kg, IV, Q6H PRN Ordered lactulose (ENULOSE) 10 gm/15 mL solution 20 g 30 mL, PO, Q4H PRN Ordered naloxone (NARCAN) 0.4 mg/mL injection 0.4 mg 0.4 mg, IV, Q5 Min PRN Ordered Allergies[2] None to Aspirin or Contrast Dye Physical Exam Vitals: 01/19/25 0930 01/19/25 1000 01/19/25 1100 01/19/25 1200 BP: (!) 105/55 92/64 (!) 125/57 (!) 152/79 BP Location: Right arm Patient Position: Sitting Pulse: 69 73 76 77 Resp: Temp: 97.6 ??F (36.4 ??C) TempSrc: Tympanic SpO2: 93% 92% 94% 95% Weight: Height: Intake/Output Summary (Last 24 hours) at 01/19/2025 1308 Last data filed at 01/19/2025 1300 Gross per 24 hour Intake 1946.85 ml Output 3125 ml Net -1178.15 ml Physical Exam Constitutional: Appearance: Normal appearance. HENT: Head: Normocephalic. Mouth/Throat: Mouth: Mucous membranes are moist. Neck: Vascular: No carotid bruit. Cardiovascular: Rate and Rhythm: Rhythm irregular. Pulses: Normal pulses. Heart sounds: Murmur heard. Pulmonary: Effort: Pulmonary effort is normal. Comments: Decreased breath sounds bilateral bases Abdominal: Palpations: Abdomen is soft. Musculoskeletal: Right lower leg: Edema present. Left lower leg: Edema present. Skin: General: Skin is warm. Comments: Mottled (normal for patient) Neurological: General: No focal deficit present. Mental Status: She is alert and oriented to person, place, and time. Psychiatric: Mood and Affect: Mood normal. Behavior: Behavior normal. Mallampati Score: II (hard and soft palate, upper portion of tonsils anduvula visible) ASA PHYSICAL STATUS CLASSIFICATION SYSTEM ASA 3 - Patient with moderate systemic disease with functional limitations Relevant data reviewed: Labs, Notes, Meds EK01/19/2025: Pending Labs: High sensitivity troponin Notable labs are: No results found for: CK , RONAN , TNI , BNP Lab Results Component Value Date PROBNP 12,046 (H) 01/18/2025 No results found for: RONAN , TNI No results found for: CK , CKMB Lab Results Component Value Date WBC 10.9 01/18/2025 HGB 10.0 (L) 01/18/2025 HCT 31.4 (L) 01/18/2025 PLT 192 01/18/2025 Lab Results Component Value Date NA 143 01/18/2025 K 4.0 01/19/2025 CL 108 (H) 01/18/2025 CO2 25 01/18/2025 BUN 23 (H) 01/18/2025 CREAT 0.8 01/18/2025 GLUC 83 01/18/2025 Imaging Studies: CXR Report reviewed Echocardiogram Report reviewed CXR () FINDINGS: Stable cardiac size. Trace left pleural effusion with left basilar subsegmental atelectasis. There is minimal interstitial pulmonary edema. No pneumothorax. IMPRESSION: 1. Trace left pleural effusion with left basilar subsegmental atelectasis. 2. Minimal interstitial pulmonary edema. TTE (01/18/25) Interpretation Summary Left ventricular systolic function is mildly decreased. The quantitative EF by 2D Escobar biplane is 45%. There is severe hypo to akinesis of the mid anterior, mid anterolateral, mid anteroseptal andmid inferolateral segments. Left atrial filling pressure is normal. Right ventricular systolic function is normal. There is mild aortic stenosis. The calculated valve area is 1.6 cm2, with a peak velocity of 2.0 m/s, a mean gradient of 9.5 mmHg, and a dimensionless index of 0.45. There is mild to moderate tricuspid regurgitation. The estimated right ventricular systolic pressure is mildly elevated at 47 mmHg. There is no previous study for comparison in our system. Findings Left Ventricle The left ventricle is mildly dilated. Wall thickness is normal. Left ventricular systolic function is mildly decreased. The quantitative EF by 2D Escboar biplane is 45%. There is severe hypo [...] on IVC diameter and collapse, right atrial pressureis estimated to be normal (3 mmHg). Mitral [...] well visualized. There is trace pulmonic regurgitation. Aorta The aortic root and ascending aorta are normal in dimension. Pericardium There is no pericardial effusion. The following information is collected for participation in the [employer] CATH/PCI Registry (ACCNCDR) and is used for submission of data and may not be entirely consistent with the clinical evaluation. ACC-NCDR CathPCI V5 Collection Form History and Risk Factors Hypertension: Yes Dyslipidemia: Yes Diabetes mellitus: No Diabetes therapy: None Hx of CAD: No Prior MO: No Prior CABG: No Prior diagnostic cath: No Prior PCI: No Currently on dialysis: No Cerebrovascular disease: No Peripheral arterial disease: No Chronic lung disease: No Tobacco use: Never Clinical frailty score: Vulnerable Pre-Procedure Information Prior heart failure: No Electrocardiac assessment method: ECG The assessment result was abnormal. - No new antiarrhythmic therapy was received prior to evaluation within the labor employment associate. Paroxysmal afib Recent stress test performed: No Cardiac CTA performed: No Calcium score assessed: No LVEF assessed: Yes Most recent LVEF: 45% Indications and Presentation Indication(s) for labor employment associate visit: new onset angina less than or equal to 2 months Chest pain symptom assessment: Atypical angina Cardiovascular instability: No - Ventricular support was not required. PCI Procedure Staged PCI: No Pre-Procedure Mediations Aspirin: Yes JASON Inhibitor: No Angiotensin II receptor pablo: No Beta pablo: Yes Calcium channel blocking agent: No Long acting nitrate: No Non-statin: No Ranolazine: No Statin: Yes Sacubitril and valsartan: No Antiarrhythmic agent other: No Kexin type 9 inhibitor: No Sign: Monica Martinez APRN 01/19/2025 1:08 PM [1] Medications Prior to Admission Medication Sig Dispense Refill Last Dose/Taking allopurinol (ZYLOPRIM) 100 mg tablet Take 2 tablets (200 mg total) by mouth daily. 01/17/2025 Morning atorvastatin (LIPITOR) 20 MG tablet Take 1 tablet (20 mg total) by mouth every morning. 01/17/2025 Morning B-Complex Cap Take 1 capsule by mouth daily. 01/17/2025 Morning furosemide (LASIX) 20 MG tablet Take 1 tablet (20 mg total) by mouth every morning. 01/17/2025 Morning leflunomide (ARAVA) 10 MG tablet Take 1 tablet (10 mg total) by mouth every morning. 01/17/2025 Morning metoPROLOL SUCCINATE (TOPROL-XL) 100 MG 24 hr tablet Take 1 tablet (100 mg total) by mouth every morning. 01/17/2025 Morning PANTOprazole (PROTONIX) 40 MG EC tablet Take 1 tablet (40 mg total) by mouth every morning. 01/17/2025 Morning predniSONE (DELTASONE) 10 MG tablet Take 1 tablet (10 mg total) by mouth every morning. For 2 weeks01/17/2025 Morning silver sulfADIAZINE (SILVADENE) 1 % cream APPLY TO SKIN DAILY Past Month Vitamin D3 (CHOLECALCIFEROL) 50 MCG (1999 UT) tablet Take 1 tablet (2,000 Units total) by mouth daily. 01/17/2025 Morning [2] Allergies Allergen Reactions Codeine Unknown/Patient and Family Unable to Define Flagyl [Metronidazole] Unknown/Patient and Family Unable to Define Hydromorphone Unknown/Patient and Family Unable to Define Hydroxychloroquine Unknown/Patient and Family Unable to Define Methotrexate Unknown/Patient and Family Unable to Define Oxycodone Unknown/Patient and Family Unable to Define Tramadol Unknown/Patient and Family Unable to Define Cosigned by Geovanni Howell MD at 01/20/2025 2:53 PM EDT Associated attestation - Geovanni Howell MD - 01/20/2025 2:53 PM EDT I have interviewed and examined the patient. I have reviewed the workup and note. I agree with thisassessment and recommendations. Patient is a 69-year-old female with past medical history of DVT not on anticoagulation, hypertension, hyperlipidemia, obesity who initially presented to [facility] with chief complaint of chest pain with associated shortness of breath, patient was found to have elevated troponins, CT scan was negative for pulmonary embolism subsequently patient was transferred to [facility] for cardiac catheterization. Patient was found to have elevated proBNP and lactic acid patient was started on diuretic therapy echocardiography showed wall motion abnormalities in the anterior anterolateral wall patient presents for cardiac catheterization. Gen: WD/WN, A&Ox3 Neck: Supple, No carotid bruit, No masses. Resp: Clear, No wheezes or rhonchi CV: RRR, No M/R/G Abd: Soft/Nontender/Nondistended Ext: No edema, No cyanosis or clubbing, Normal pulses Mallampati Score: III (soft and hard palate and base of uvula visible) ASA PHYSICAL STATUS CLASSIFICATION SYSTEM ASA 3 - Patient with moderate systemic disease with functional limitations IMPRESSION: Acute coronary syndrome Heart failure Streptococcal bacteremia Obesity Hypertension RECOMMENDATIONS: I will proceed with left and right heart cardiac catheterization coronary angiogram +/- PCI Risks, benefits and alternatives to LHC, RHC, coronary angiogram +/- PCI were discussed with the patient. Risks including but not limited to MO, stroke, emergency bypass surgery, bleeding or vascularcomplications, adverse reaction to contrast or sedation, emergency defibrillation, endotracheal intubation, need for prolonged dual antiplatelet therapy with heightened risk of bleeding and needing to defer elective surgery was discussed with the patient. The benefit of obtaining diagnostic and prognostic information and performing revascularization of appropriate anatomy was discussed with the patient. The alternative of not proceeding with cathete rization and medical therapy alone or additional noninvasive testing was discussed with the patient. She voiced understanding and wishes to proceed. * Homar Youngblood MD - 01/19/2025 11:56 AM EDT RICH INFECTIOUS DISEASE CONSULT NOTE Date of Consult: 01/19/2025 Patient's Primary Care Physician: Kenisha Ozuna MD Physician Requesting Consult: Vinicio Bedolla MD Reason for Consultation: Group B strep bacteremia Principal Problem: Cardiogenic shock (HCC) (POA: Yes) Resolved Problems: ASSESSMENT & PLAN Assessment I called [facility] and she had 1 of 2 blood cultures from 01/18 with group B strep. The source could be her skin versus her urine. Plan Cover with Rocephin 2 g IV once a day. SUBJECTIVE Chief Complaint: Group B strep bacteremia History of Present Illness: This is a 69-year-old female with a past medical history of hypertension, history of hyperlipidemia, history of eczema, history of gout, history of DVT, history of CHF, history of varicose veins status post rotator cuff surgery, status post spine surgery, history of polymyositis, who was transferred to [facility] because of concerns for non-STEMI. She initially went to [facility] complaining of pain in the center of her chest. Workup revealed an elevated troponin she was transferred to [place] after being loaded with aspirin and started on heparin. CT was done and was negative for pulmonary emboli. She had been intermittently having shaking chills over the last 2 years. This has happened to her maybe 3-4 times. These events are associated with urinary incontinence and seems as self resolved. She has not seen a physician for these complaints. She has no known cardiac history and has never seen a station operator. In the ED her troponin was elevated but was downtrending. EKG sh owed no signs of acute ischemia. Her initial lactic acid level was 4.4. She appeared warm and well-perfused. Cardiac exam had a 3/5 crescendo decrescendo systolic murmur best heard at the right and left upper sternal borders without radiation to the carotids. Second heart sound was intact. The feeling was there was mild to moderate aortic stenosis. She went to the CCU. Ejection fraction was 45%. There was significant anterior wall motion abnormalities possibly consistent with an LAD MO. Echo was also consistent with normal left atrial filling pressure with elevated pulmonary pressures. Bloodcultures drawn at the outside hospital were found to be positive for gram-positive bacteria and shewas started on broad-spectrum antibiotics. Temperature is 99.5 with a white count of 20.1 down to 10.9. She got 1 dose of vancomycin and Rocephin. Urinalysis was unremarkable. I called [facility] and she has 1 of 2 blood cultures from 01/18 positive for group B strep. Allergies include codeine Flagyl hydromorphone hydroxychloroquine methotrexate oxycodone tramadol Social history does not drink or smoke Family history no history of premature coronary disease Review of Systems: Weakness, fatigue otherwise 10 point review of systems is negative PAST MEDICAL HISTORY: Past Medical History: Diagnosis Date CHF (congestive heart failure) (HCC) DVT (deep venous thrombosis) (HCC) Eczema Gout Hyperlipidemia Hypertension Osteoarthritis Polymyositis (HCC) Past Surgical History: Procedure Laterality Date ORTHOPEDIC SURGERY Right rotator cuff SPINE SURGERY SOCIAL HISTORY: Social History[1] FAMILY HISTORY: No family history on file. OBJECTIVE Allergies[2] Physical Exam Last Vitals Pulse:76,Resp:19,BP:(!) 125/57,SpO2:94 %,Weight:77.1 kg (170 lb) Temp Last 24 hrs: Temp Min: 97.5 ??F (36.4 ??C) Max: 99.5 ??F (37.5 ??C) Last temp: 97.7 ??F (36.5 ??C) (Tympanic) No acute distress No pacemakers or lines are in place HEENT: Mucous membranes are moist. PERRLA. EOMI. Neck supple without nodes. Lungs: Clear. Cardiac: RRR. Abdomen: +BS Soft Nontender. Extremities: No lesions. Joints: No degenerative joint disease. Skin: No rash. Lymph nodes: No lymph nodes palpated. Neuro: Moves all extremities. Intake/Output Summary (Last 24 hours) at 01/19/2025 1156 Last data filed at 01/19/2025 1143 Gross per 24 hour Intake 1566.29 ml Output 2725 ml Net -1158.71 ml Relevant data reviewed: Results from last 7 days Lab Units 01/18/25 2346 01/18/25 1039 WHITE BLOOD CELL COUNT Thou/uL 10.9 20.1* HEMOGLOBIN g/dL 10.0* 11.1* HEMATOCRIT % 31.4* 37.2 PLATELET COUNT Thou/uL 192 219 NEUTROS PCT % -- 90.1 LYMPHS PCT % -- 3.8 MONOS PCT % -- 5.2 EOS PCT % -- 0.0 BASOS PCT % -- 0.3 Results from last 7 days Lab Units 01/19/25 0800 01/18/25 2346 01/18/25 1544 01/18/25 1039 SODIUM mmol/L -- 143 -- 141 POTASSIUM mmol/L 4.0 3.3* -- 3.8 CHLORIDE mmol/L -- 108* -- 106 CO2 mmol/L -- 25 -- 19* BUN mg/dL -- 23* -- 25* CREATININE mg/dL -- 0.8 -- 0.9 CALCIUM mg/dL -- 9.0 -- 8.8 GLUCOSE mg/dL -- 83 -- 112* GLUCOSE, POC mg/dL -- -- 96 -- EGFR -- 80 -- 69 ALBUMIN g/dL -- -- -- 3.5 PROTEIN, TOTAL g/dL -- -- -- 6.6 BILIRUBIN TOTAL mg/dL -- -- -- 0.5 ALK PHOS U/L -- -- -- 110 ALT U/L -- -- -- 21 AST U/L -- -- -- 46 Lab Results Component Value Date ALT 21 01/18/2025 AST 46 01/18/2025 ALKPHOS 110 01/18/2025 BILITOT 0.5 01/18/2025 Results from last 7 days Lab Units 01/18/25 1039 PROTHROMBIN TIME (PT) seconds 12.5 APTT seconds 67* INR 1.1 proBNP, N-terminal Date Value Ref Range Status 01/18/2025 12,046 (H) <125 pg/mL Final Blood Cultures: Lab Results Component Value Date CULTURE Sterile <24 hours 01/18/2025 Urine Cultures: Lab Results Component Value Date BILIUA Negative 01/18/2025 BLOODUA Negative 01/18/2025 CLARITYUA Clear 01/18/2025 COLORUA Straw 01/18/2025 KETONESUA Negative 01/18/2025 LEUKOCYTESUA Negative 01/18/2025 NITRITEUA Negative 01/18/2025 PHUA 6.0 01/18/2025 PROTEINUA Negative 01/18/2025 RBCUA 1 01/18/2025 SPECGRAVUA 1.014 01/18/2025 WBCUA 0 01/18/2025 C. Difficile: No results found for: CDIFFTOX , NAP1 Current Medications: Current Medications[3] Imaging Studies: XR Chest 1 view-Portable Result Date: 01/19/2025 EXAMINATION: XR CHEST CLINICAL INFORMATION: sepsis COMPARISON: January 18, 2025 TECHNIQUE: Frontal viewof the chest was obtained. FINDINGS: Stable cardiac size. Trace left pleural effusion with left basilar subsegmental atelectasis. There is minimal interstitial pulmonary edema. No pneumothorax. 1. Trace left pleural effusion with left basilar subsegmental atelectasis. 2. Minimal interstitial pulmonary edema. LISA CARDIAC POC ULTRASOUND Result Date: 01/18/2025 PROCEDURE: Limited ULTRASOUND - Cardiac scan Limited Transthoracic Echocardiography Indication/Medical necessity: Chest Pain A parasternal long view of the heart was obtained and demonstrated: HYPOKINESIS and NO PERICARDIAL EFFUSION A Parasternal short view of the heart was obtained and demonstrated: HYPOKINESIS and NO PERICARDIAL EFFUSION An Apical 4-chamber view of the heart was obtained and demonstrated:HYPOKINESIS and NO PERICARDIAL EFFUSION Overall Findings/Impression: HYPOKINETIC CONTRACTILITY Further Imaging: clinical evidence requires further imaging Other Findings/Comments: Pathogenic B-lines in bilateral lung mason Medical Officer: These images were recorded for it quality assurance analyst, retrievability, and archival purposes. Limitations/Complications of the procedure: None Performed By: Mamadou Rios MD Echocardiogram (TTE) Comprehensive (Contrast PRN) Result Date: 01/18/2025 Left ventricular systolic function is mildly decreased. The quantitative EF by 2D Escobar biplane is 45%. There is severe hypo to akinesis of the mid anterior, mid anterolateral, mid anteroseptal andmid inferolateral segments. Left atrial filling pressure is normal. Right ventricular systolic function is normal. There is mild aortic stenosis. The calculated valve area is 1.6 cm2, with a peak [place] of 2.0 m/s, a mean gradient of 9.5 mmHg, and a dimensionless index of 0.45. There is mild to moderate tricuspid regurgitation. The estimated right ventricular systolic pressure is mildly elevated at 47 mmHg. There is no previous study for comparison in our system. CT Chest Archive for Reference Only Result Date: 01/18/2025 This study has been auto finalized and does not contain a result. CR Chest Archive for Reference only Result Date: 01/18/2025 This study has been auto finalized and does not contain a result. Sign: Homar Youngblood MD 01/19/2025 11:56 AM [1] Social History Tobacco Use Smoking status: Never Smokeless tobacco: Never Substance Use Topics Alcohol use: Not Currently Drug use: Never [2] Allergies Allergen Reactions Codeine Unknown/Patient and Family Unable to Define Flagyl [Metronidazole] Unknown/Patient and Family Unable to Define Hydromorphone Unknown/Patient and Family Unable to Define Hydroxychloroquine Unknown/Patient and Family Unable to Define Methotrexate Unknown/Patient and Family Unable to Define Oxycodone Unknown/Patient and Family Unable to Define Tramadol Unknown/Patient and Family Unable to Define [3] Current Facility-Administered Medications Medication Dose Route Frequency Provider Last Rate Last Admin acetaminophen (TYLENOL) tablet 650 mg 650 mg Oral Q6H PRN Aarti Spears APRN 650 mg at 01/19/25 0246 allopurinol (ZYLOPRIM) tablet 200 mg 200 mg Oral Daily Vicki Tej, DO 200 mg at 01/19/25 0836 aspirin chewable tablet 81 mg 81 mg Oral Daily Vinicio Bedolla MD 81 mg at 01/19/25 0836 atorvastatin (LIPITOR) tablet 80 mg 80 mg Oral QAM Vicki Tej, DO 80 mg at 01/19/25 0836 bisacodyl (DULCOLAX) suppository 10 mg 10 mg Rectal Daily PRN Vicki Tej, DO cefTRIAXone (ROCEPHIN) 1 g in sodium chloride-MBP (NS) 100 mL IVPB-MBP 1 g Intravenous Q24H Vicki Tej, DO 200 mL/hr at 01/19/25 1143 1 g at 01/19/25 1143 furosemide (LASIX) injection 40 mg 40 mg Intravenous BID Sruthi Edwards, RESIDENTIAL APPRAISER 40 mg at 01/19/25 1143 heparin (porcine) 1000 unit/mL injection 2,300 Units 30 Units/kg Intravenous Q6H PRN Vicki Tej, DO heparin (porcine) IV infusion 25,000 units in 500 mL 0.45% NaCl (premix) 12 Units/kg/hr IntravenousContinuous Vicki Tej, DO 20.28 mL/hr at 01/19/25 1100 13 Units/kg/hr at 01/19/25 1100 lactulose (ENULOSE) 10 gm/15 mL solution 20 g 30 mL Oral Q4H PRN Vicki Tej, DO metoPROLOL TARTRATE (LOPRESSOR) tablet 25 mg 25 mg Oral Q12H GOOD Vicki Tej, DO 25 mg at 836 naloxone (NARCAN) 0.4 mg/mL injection 0.4 mg 0.4 mg Intravenous Q5 Min PRN Vicki Tej, DO PANTOprazole (PROTONIX) EC tablet 40 mg 40 mg Oral QAM Vicki Tej, DO 40 mg at 01/19/25 0836 senna-docusate (SENNA-S) 8.6-50 MG tablet 2 tablet 2 tablet Oral Nightly Vicki Tej, DO 2 tablet at 01/18/252107 documented in this encounter ED Notes * Sushila Brooks RN - 01/18/2025 3:01 PM EDT Report given to [place] [address] ICU. Sushila Brooks RN 01/18/25 1502 * Sushila Brooks RN - 01/18/2025 3:01 PM EDT Report given to ICU Sushila Brooks RN 01/18/25 1501 * Sushila Brooks RN - 01/18/2025 2:06 PM EDT Pt is resting comfortably on hospital NAD. RR even and unlabored on RA. Pt titrated from 2L NC to RA satting at 96%. Heparin gtts running. Call farias within reach. Plan for admit. Sushila Brooks RN 01/18/25 2381 * Monica Agrawal MD - 01/18/2025 12:37 PM EDT I personally saw the patient and performed a substantive portion of the visit including all aspectsof the medical decision-making. I reviewed the AP's or resident's findings, supervised the management of the patient, made/approved the management plan and take responsibility for the patient management. Further, I agree with the controlled substance prescriptions(s) and/or order(s) as written by the AP, if any. My note reflects my personal findings on my history and exam. HPI: 60-year-old female presenting as a transfer from outside hospital for concerns of NSTEMI. Patient with a hsitory of prior DVT, not on anticoagulation. Patient states that she went to the hospital today as she had an episode of feeling cold and weak which she has had before. Started feeling more short of breath than usual and went to outside hospital where she had an elevated dimer and elevated troponin. She underwent a CTA of the chest that had some mild motion degradation but no obvious PE. Started on heparin for rising troponin. No active chest pain currently. See Advanced practitioner/resident note for detailed HPI and ROS PE: BP (!) 115/57 (BP Location: Right arm, Patient Position: Lying) Pulse 69 Temp 99.5 ??F (37.5 ??C) (Tympanic) Resp 16 Ht 1.549 m (5' 1 ) Wt 78 kg (171 lb 15.3 oz) SpO2 97% BMI 32.49 kg/m?? Vital signs reviewed. Constitutional: No respiratory distress Head: Atraumatic Eyes: PERRL, EOMI, Ear, Nose, Mouth, Throat:Normal voice, handling secretions normally Neck: no midline C spine tenderness Cardiovascular: Normal S1, S2. No extra heart sounds. Respiratory: Breath sounds clear and equal bilaterally, no wheezes, no rales, no rhonchi. Gastrointestinal: Normal bowel sounds. Soft, non-tender, non-distended. No rebound or guarding. No Evans's sign. Back: No tenderness. Musculoskeletal: No unilateral leg swelling, no peripheral edema Skin: No rash Neurologic: Alert and appropriate, no apparent acute deficits. Moving all extremities equally Psychiatric: Cooperative AP: 69-year-old female presenting as a transfer outside hospital for concerns of NSTEMI. Bedside ultrasound performed showed decreased LVEF. She was given antibiotics at outside hospital as there wasa question of pneumonia. CTA also concerning for some pulmonary edema. Repeat labs here show a lactic acid of 4.4, troponin of 647. Bedside ultrasound with some decreased EF and there could be a component of cardiogenic shock contributing to patient's lactic acidosis as well. She had pulm edema on her CTA, will continue to diurese patient Patient admitted to CICU I Reviewed any nurses notes, vital signs, home medication lists, other history or pertinent diagnostic tests available. ED BILLING Co-Morbidities Present During Encounter: See above. Comorbidities Impact on Encounter: See above Records Reviewed from External Provider, Facility, or Healthcare Organization: Recent visits in EMR. History Obtained from Other Source: Medical records. Interpretation of Diagnostic Study: Laboratory test. Radiology. Interpretation Comments: See above Testing or Treatment Considered but Not Performed: N/A. Discussion with Other Healthcare Provider: Cardiology. Prescription Medication Management: Home medication management deferred to admitting team. Social Determinants of Health that Impact Care: Patient-specific factors. Social Determinants Limited Treatment by: N/A Admission vs. Discharge: Patient admitted. Patient Refusal of Diagnostic Procedure or Treatment: N/A Critical Care: Due to a high probability of clinically significant, life- threatening deterioration,the patient required greater than 30 minutes of discontinuous time in which I directly managed their care. This critical care time included obtaining a history; vital sign assessment; examining the patient; ordering and reviewing studies; intervening on studies as appropriate; arranging urgent treatment with development of a management plan; frequent reassessment; and discussions with other providers. Critical care time does not include time spent performing separately billable procedures or teaching. Total time spent performing critical care was 32 minutes. 01/18/2025 12:37 PM Monica Agrawal MD 01/19/25 1218 Monica Agrawal MD 01/19/25 1219 * Sushila Brooks RN - 01/18/2025 12:06 PM EDT Patient is sleeping comfortably on HB NAD. RR even and unlabored on 2L NC. Chest rises and falls equally and bilaterally. Plan for admit. Sushila Brooks RN 01/18/25 1254 * Sushila Brooks RN - 01/18/2025 10:29 AM EDT . Sushila Brooks RN 01/18/25 1111 documented in this encounter Miscellaneous Notes * Plan of Care - Marisa Robison RN - 01/23/2025 4:54 PM EDT Plan of Care Reviewed With: patient Progress: no change Outcome Evaluation: Pt AOx4, no pain or SOB reported. Pt given fluids and medications adjusted to avoid hypotension. IV and telemetry removed. Discharge instructions reviewed. Pt wheeled off unit to be brought home by woodrow Robison 01/23/2025 4:54 PM * Work/school excuse - Dante Ferrara MD - 01/23/2025 4:02 PM EDT To Whom It May Concern: Karol Frias was admitted on 01/18/2025. She is being discharged today and recommended to remain off from work till 02/01/25. Electronically Signed, Dante Ferrara MD 01/23/2025 4:02 PM * Plan of Care - Vicki Mccollum RN - 01/23/2025 5:34 AM EDT Plan of Care Reviewed With: patient Progress: improving Outcome Evaluation: Pt aox4. Denies c/o pain or SOB. Medicated per NOV. Plan to continue diuresing and optimize GDMT, probable d/c today. Vicki Mccollum 01/23/2025 5:34 AM * Plan of Care - Marisa Robison RN - 01/22/2025 5:42 PM EDT Plan of Care Reviewed With: patient Progress: no change Outcome Evaluation: Pt AOx4, no pain or SOB reported. IV lasix continued per NOV. Pt Bps in 90s systolic, MD Sheehan notified and spironolactone held. MD Sheehan messaged about K of 3.7 and mag of 1.7,no new orders. IV abx continue, possible d/c tomorrow Marisa Robison 01/22/2025 5:42 PM * Hospital Course - Brittany Sheehan MD - 01/22/2025 9:45 AM EDT Patient presented with acute shortness of breath found to be in a fib with RVR and significant NSTEMI with trops 2K-> 4K, given heparin load and ASA 162, transferred to [facility] for additional care.EKG here NSR without ischemic changes. HS 647 -> 542. Lactic acidosis 4.4 -> 2.7 -> 1.4. proBNP 12,000. Echo showed LFEV 45%, severe hypo to akinesis of mid anterior, midanterolateral, mid an teroseptal, and mid inelateral segments, RV normal; mild aortic stenosis, mild to moderate TR, mildly elevated RV systolic pressure at 47. LVIDD 5.1; LVOT VTE 19.3. Patient was continued on heparin gtt, given aspirin, and atorvastatin, seen by interventional cards, plan for C during this admission, likely 01/20. Importantly, [facility] called with results that patient's blood cultures from OSH are growing gram positive cocci in chains, she was continued on IV antibiotics and ID was consulted. Shock state likely multifactorial with possible septic and cardiogenic components. Course complicated by a fib with RVR, requiring IV lopressor x2 and oral metoprolol for conversion to NSR. Had significant conversion pause, however was asymptomatic and vitally stable. Patient was transferred to the medical floor. On the medical floor, patient underwent right and left heart cath which showed nonobstructive coronary artery disease and elevated filling pressure. It was believed that her heart failure was secondary to stress-induced cardiomyopathy. She was started on IV Lasix 80 mg twice daily and switched later to 80 mg once daily. Regarding the bacteremia, it turns out that patient has group B streptococcus bacteremia based on [facility] labs. Patient was continued on ceftriaxone here and ID is recommending switching that to no antibiotics or oral antibiotics on discharge * Plan of Care - Sindy Claros RN - 01/22/2025 5:40 AM EDT Pt A&Ox4. Pt denied CP and SOB. NSR/Junctional on the monitor. Medicated per NOV. Call light within reach and safety maintained. Plan to continue diuresing IV lasix 80 BID, ceftriaxone abx and GDMT. Sindy Claros 01/22/2025 5:40 AM * Plan of Care - Mickie Amezquita RN - 01/21/2025 6:36 PM EDT Plan of Care Reviewed With: patient AxOx4. Denies CP and/or SOB. Plan is to continue diuresing and titrate up GDMT. Medications given per NOV. Safety maintained and call farias is within reach. Mickie Amezquita 01/21/2025 6:36 PM * Plan of Care - Idalia Devine RN - 01/21/2025 3:25 PM EDT Case Management Care Plan Note Summary: Per clinical progression rounds with the bedside RN and provider, and ongoing continuing care assessment, patient is not yet clinically stable for transition. Pt is being diuresed w/ IV lasix. At this time transition plan remains for patient to be discharged when medically stable. CC will continue to follow for readiness to transition. Recommendation: Anticipate transition Home when medically stable. * Plan of Care - Amber Arce RN - 01/21/2025 2:58 PM EDT Heart Failure Nurse Navigator: Discussed potential transition of care this weekend for this patient who was transferred to [facility] from [facility] with NSTEMI, Afib with RVR and new reduced Ejection Fraction of 45%, no previous station operator. Call placed to [facility] [phone] near patient's home and progress notes faxed for their review by LUNA, their nurse navigator who will then call me with an appointment with the appropriate station operator. Advised patient of this and she was accepting of a referral to their cardiology group. Also, made her aware our goal will be to get her close follow up with either her PCP (appt on 02/25) or our [facility] clinic in [place]. She is agreeable to this as well. [facility] referral made and 7 day appt made for 01/29- on discharge paperwork. Also, discussed her symptoms at home and new diagnosis of cardiomyopathy with her. Provided her with HF Guidebook and weight chart- symptom recognition, daily weights, when to report issues to MD. She has a scale at home. Provided her with my contact information should she have any questions once she is home. If Cardiology office calls me with an appointment by this afternoon, I will place on her discharge paperwork. If she has already been discharged, I will request they call her with an appointment. * Plan of Care - Vicki Mccollum RN - 01/21/2025 4:48 AM EDT Plan of Care Reviewed With: patient Progress: improving Outcome Evaluation: Pt aox4. Denies c/o pain or SOB. RRA and RBV CDI, no bleeding or hematoma. [place] continue IV abx. Vicki Mccollum 01/21/2025 4:48 AM * Plan of Care - Marisa Robison RN - 01/20/2025 6:19 PM EDT Plan of Care Reviewed With: patient Progress: no change Outcome Evaluation: Pt AOx4, no pain or SOB reported. Pt went for cath RRA and RBV, CDI, no bleeding or hematoma. Pt given 1 dose of IV lasix after returning from cath. ambulated to bathroom SBA. IV abx continued Marisa Robison 01/20/2025 6:19 PM * Plan of Care - Anupama Garner MD - 01/20/2025 5:17 PM EDT Pt back from cath I TT Dr Sanchez Resumed Lasix and Stopped Heparin per cardio * Plan of Care - Ravindra Barlow RN - 01/20/2025 4:58 PM EDT Pt transferred to N10 without incident. Right radial site CDI, soft, nontender, with palpable distal pulses, no hematoma Ravindra Barlow 01/20/2025 4:58 PM * Provider Documentation Query - Birttany Sheehan MD - 01/20/2025 12:09 PM EDT Request for Documentation Clarification [facility] Karol Frias ; VISIT [id number] Query Response Sent: 01/20/25 12:09 EDT From: Brittany Sheehan MD Query question: Based on the clinical indicators listed below and your professional judgement, please clarify the status of sepsis by selecting one of the options below. Provider response: The diagnosis of sepsis is confirmed (if so, please provide evidence supporting this diagnosis and source of infection if known) hypertension, tachycardia, leukocytosis, lactic, acid elevation. presence of bacteraemia Original Query Sent: 01/20/25 10:48 EDT From: Rocio Land CDIS To: Brittany Sheehan MD By submitting this query, we are seeking further clarification of documentation to accurately reflect all conditions that you monitored, evaluated, treated, or that may have extended the hospitalization or utilization of additional resources for care. Reason for Clarification possible septic shock, sepsis documented please validate with link to infection and systemic compromise Based on the clinical indicators listed below and your professional judgement, please clarify the status of sepsis by selecting one of the options below. * The diagnosis of sepsis is confirmed (if so, please provide evidence supporting this diagnosis and source of infection if known) * Sepsis has been ruled out * Other explanation of clinical findings (please specify) Clinical Information * Signs and Symptoms * Bacteremia: CONSULT by Homar Youngblood at 01/19/2025 11:56 Group B strep bacteremia * Vital signs: Resp Rate - 01/18/2025 16:04 - 25 * Labs: WBC 20.1 on admission Lactic Acid 4,=.4---2.7---1.4 * Other: transferred from OSH after IV antibiotics, documented shock, new onset AFIB, NSTEMI * Risk Factors * Pneumonia: documented as likely * Other: PROGRESS by Vicki Burnham at 01/19/2025 06:50 Bacteremia - gram + cocci in chains UA at OSH and here w/o evidence of infection. CT at OSH c/f poss lobar PNA in upper lobes. CXR herewithout lobar consolidation. MRSA negative. Gram + chains bacteremia likely 2/2 lobar PNA. * Treatment * Other: Metoprolol, Echo, IV Lasix, labs, monitoring, ID consult * Other: H&P by Vivian Coates at 01/18/2025 15:19 - Diuresing gently today; already got 20 mg IV once, can spot dose again while looking into sepsis Referenced Documents * H&P - 01/18/25 15:19 * CONSULT - 01/19/25 11:56 * PROGRESS - 01/19/25 06:50 * Rehab Therapy Consults - Meenu Bazzi, PT - 01/20/2025 10:11 AM EDT Physical Therapy Initial Evaluation Current Diagnosis and Pertinent Medical History: Karol Frias is a 69 y.o. female admitted with sob and NSTEMI. Blood cultures at [facility] positive. ID following. Pending L/R HC . Precautions/Restrictions: fall (sbp 90-150) Previous Level Of Function/Home Environment Home Environment: Living Arrangements: home People In Home: spouse Prior Level Of Function: Household Mobility: independent Community Mobility: independent Equipment Used at Home: none I, no DME. 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 I, no DME. Assessment & Plan Assessment: pt seen for initial PT eval. Awake and agreeable to PT , denying all sx. Pt reports hasbeen up to BR without difficulty with amb. She mobilized with stand by assist, PT managing IV pole,without LOB. Min increased lat sway noted with pt verbalizing that she normally amb with shoes on. She was able to manage 2 steps with rail and contact guard ( number limited by presence of IV hep). Pt likely near her functional baseline. If transitioning to home, patient will require assist from [facility] as needed. . Rehab Plan of Care: PT to follow for mobility progression post HC, if remains hospitalized. PT Recommendations for Staff: transfer/amb 1 assist as juana. rec pt wear her shoes if present , for stabiliyt PT Frequency during Hospitalization: other (see comments) (1x follow up) Plan of Care Reviewed With: pt, RN Outcome Measures The Activity Measure for Post-Acute Care (AM-PAC) Basic Mobility Inpatient Short Form (6-clicks) linda standardized measure used to quantify functional deficits in mobility. The total score of the measure ranges from 6-24. A higher score indicates a higher level of independence with functional mobility. Baseline [facility] Basic Mobility Score: 24 Current [facility] Basic Mobility Score: 22 Objective Data ROM: B Le wfl. MMT: B LE 5/5 Sensation: intact to light touch B Le. Bed Mobility: I supine <>sit Transfers: sit to stand I. Gait/Stairs: amb with stand by with assist for IV pole 200 feet. Min increased lat sway but no LOB Stairs: 2 with R rail with stand by, step to step. Balance: static sitting - good dynamic sitting - good static standing - good dynamic standing - good-, increased lat sway. Reports normally amb with shoes on. Activity Tolerance: good for eval. Patient performed all activity on room air Denied all sx. Vitals: BP 141/81-139/78 HR 67-71 Education: Role of PT, purpose of evaluation and POC. Subjective O h I can walk Past Medical/Surgery History Past Medical History: Diagnosis Date CHF (congestive heart failure) (HCC) DVT (deep venous thrombosis) (HCC) Eczema Gout Hyperlipidemia Hypertension Osteoarthritis Polymyositis (HCC) Past Surgical History: Procedure Laterality Date ORTHOPEDIC SURGERY Right rotator cuff SPINE SURGERY Flowsheet Data 01/20/25 0930 Physical Therapy Time and Intention PT Visit Type initial evaluation Mode of Treatment individual therapy;physical therapy Total Minutes, Physical Therapy 24 Patient Effort good Symptoms Noted During/After Treatment none General Information Patient Profile Reviewed yes Onset of Illness/Injury or Date of Surgery 01/18/25 Referring Physician attending Sissy Patient/Family/Caregiver Comments/Observations O h I can walk General Observations of Patient resting in bed, awake, alert Pertinent History of Current Functional Problem Per EMR: 69 year old female with history of hypertension, hyperlipidemia, varicose veins, DVT 20 years ago who initially presented to OSH for shortnessof breath and found to have NSTEMI and A-fib with RVR. Patient was transferred to and started onheparin gtt and admitted to CCU. Of note blood cultures at OSH positive, ID following. Existing Precautions/Restrictions fall (sbp 90-150) Previous Level of Function/Home Environm Bed Mobility, Premorbid Functional Level independent Transfers, Premorbid Functional Level independent Household Ambulation, Premorbid Functional Level independent Stairs, Premorbid Functional Level independent Community Ambulation, Premorbid Functional Level independent Previous Level of Function, Premorbid I, no DME. 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 Living Environment Current Living Arrangements home People in Home spouse Primary Care Provided by self Home Use of Assistive/Adaptive Equipment Equipment Currently Used at Home none Cognition Cognitive Status wfl Orientation Status (Cognition) oriented x 4 Coping Observed Emotional State calm;cooperative Verbalized Emotional State acceptance Trust Relationship/Rapport care explained;choices provided;reassurance provided Family/Support Persons patient Involvement in Care participating in care Safety Safety WDL WDL Enhanced Safety Measures bed alarm set Progressive Mobility Progressive Mobility Level Achieved Ambulation Ambulation Distance (Feet) 200 [facility] Basic Mobility Turning from your back to your side while in a flat bed without using bedrails? 4 Moving from lying on your back to sitting on the side of a flat bed without using bedrails? 4 Moving to and from a bed to a chair (including wheelchair)? 4 Standing up from a chair using your arms? 4 To walk in a hospital room? 3 Climbing 3-5 steps with a railing? 3 [facility] Basic Mobility Score 22 Therapy Assessment/Plan (PT) Patient/Family Therapy Goals Statement (PT) to go home Functional Level at Time of Evaluation (PT) 5 amb PT Diagnosis (PT) impaired mobility /act juana Rehab Potential (PT) good Criteria for Skilled Interventions Met (PT) yes Therapy Frequency (PT) other (see comments) (1x follow up) PT Recommendations for Staff transfer/amb 1 assist as juana. rec pt wear her shoes if present , for stabiliyt Predicted Duration of Therapy Intervention (PT) LOS Planned Therapy Interventions (PT) gait training;transfer training;strengthening;stair training PT Evaluation Complexity Clinical Presentation (PT Evaluation Complexity) evolving Clinical Decision Making (PT Evaluation Complexity) moderate complexity Overall Complexity (PT Evaluation Complexity) moderate complexity Therapy Plan Review/Discharge Plan (PT) Therapy Plan Review (PT) patient Physical Therapy Goals Gait Training Goal Selection (PT) gait training, PT goal 1 Stairs Goal Selection (PT) stairs, PT goal 1 Gait Training Goal 1 (PT) Activity/Assistive Device (Gait Training Goal 1, PT) gait (walking locomotion) [place] Level (Gait Training Goal 1, PT) independent Distance (Gait Training Goal 1, PT) 400 Time Frame (Gait Training Goal 1, PT) 1 week Stairs Goal 1 (PT) Activity/Assistive Device (Stairs Goal 1, PT) stairs, all skills;ascending stairs;descending stairs [place] Level/Cues Needed (Stairs Goal 1, PT) modified independence (rail) Number of Stairs (Stairs Goal 1, PT) 10 Time Frame (Stairs Goal 1, PT) 1 week Sign: Meenu Bazzi, PT * Plan of Care - Vicki Mccollum RN - 01/20/2025 4:53 AM EDT Plan of Care Reviewed With: patient Outcome Evaluation: Pt aox4. Medicated per NOV. Hep gtt rate infusing per NOV.C/o headache administered tylenol per NOV. Denies c/o SOB. Pt remains NPO for LHC today. Vicki Mccollum 01/20/2025 4:53 AM * Plan of Care - Mickie Amezquita RN - 01/19/2025 7:26 PM EDT Plan of Care Reviewed With: patient AxOx4, denies CP and SOB. Plan is for HC tomorrow. Safety maintained and call farias is within reach. Mickie Amezquita 01/19/2025 7:26 PM * Assessment & Plan Note - Teresa Membreno PA-C - 01/19/2025 2:49 PM EDT Associated Problem(s): Atrial fibrillation with RVR (HCC) ECHO EF 45%. Severe hypo to akinesis of the mid anterior, mid anterolateral, mid anterior septal and mid inferolateral segments. Mild aortic stenosis and mild to moderate tricuspid regurgitation. CXR trace left pleural effusion with left basilar subsegmental atelectasis. Minimal interstitial pulmonary edema. BNP 59256 Trop 647 -> 542 SBP 105 - Per interventional cardiology plan for RHC/LHC +/- PCI 01/20 and plan for n.p.o. at midnight - [id number] 2 - Continue heparin GTT - Aspirin 81 mg once daily - Lipitor 80 mg once daily - Lasix 40 mg IV twice daily - Lopressor 20 mg twice daily - Lipids in a.m. - Strict I's and O's, daily weights, telemetry - K>4 and Mg >2 * Assessment & Plan Note - Teresa Membreno PA-C - 01/19/2025 2:49 PM EDT Associated Problem(s): Systolic murmur ECHO EF 45%. Severe hypo to akinesis of the mid anterior, mid anterolateral, mid anterior septal and mid inferolateral segments. Mild aortic stenosis and mild to moderate tricuspid regurgitation. CXR trace left pleural effusion with left basilar subsegmental atelectasis. Minimal interstitial pulmonary edema. BNP 35118 Trop 647 -> 542 SBP 105 - Per interventional cardiology plan for RHC/LHC +/- PCI 01/20 and plan for n.p.o. at midnight - [id number] 2 - Continue heparin GTT - Aspirin 81 mg once daily - Lipitor 80 mg once daily - Lasix 40 mg IV twice daily - Lopressor 20 mg twice daily - Lipids in a.m. - Strict I's and O's, daily weights, telemetry - K>4 and Mg >2 * Assessment & Plan Note - Teresa Membreno PA-C - 01/19/2025 2:49 PM EDT Associated Problem(s): Cardiogenic shock (HCC) (Resolved 01/19/2025) ECHO EF 45%. Severe hypo to akinesis of the mid anterior, mid anterolateral, mid anterior septal and mid inferolateral segments. Mild aortic stenosis and mild to moderate tricuspid regurgitation. CXR trace left pleural effusion with left basilar subsegmental atelectasis. Minimal interstitial pulmonary edema. BNP 50916 Trop 647 -> 542 SBP 105 - Per interventional cardiology plan for RHC/LHC +/- PCI 01/20 and plan for n.p.o. at midnight - [id number] 2 - Continue heparin GTT - Aspirin 81 mg once daily - Lipitor 80 mg once daily - Lasix 40 mg IV twice daily - Lopressor 20 mg twice daily - Lipids in a.m. - Strict I's and O's, daily weights, telemetry - K>4 and Mg >2 * Assessment & Plan Note - Teresa Membreno PA-C - 01/19/2025 2:49 PM EDT Associated Problem(s): Pulmonary edema ECHO EF 45%. Severe hypo to akinesis of the mid anterior, mid anterolateral, mid anterior septal and mid inferolateral segments. Mild aortic stenosis and mild to moderate tricuspid regurgitation. CXR trace left pleural effusion with left basilar subsegmental atelectasis. Minimal interstitial pulmonary edema. BNP 55910 Trop 647 -> 542 SBP 105 - Per interventional cardiology plan for RHC/LHC +/- PCI 01/20 and plan for n.p.o. at midnight - [id number] 2 - Continue heparin GTT - Aspirin 81 mg once daily - Lipitor 80 mg once daily - Lasix 40 mg IV twice daily - Lopressor 20 mg twice daily - Lipids in a.m. - Strict I's and O's, daily weights, telemetry - K>4 and Mg >2 * Assessment & Plan Note - Teresa Membreno PA-C - 01/19/2025 2:49 PM EDT Associated Problem(s): Type 1 non-ST elevation myocardial infarction (NSTEMI) ([facility]) ECHO EF 45%. Severe hypo to akinesis of the mid anterior, mid anterolateral, mid anterior septal and mid inferolateral segments. Mild aortic stenosis and mild to moderate tricuspid regurgitation. CXR trace left pleural effusion with left basilar subsegmental atelectasis. Minimal interstitial pulmonary edema. BNP 68728 Trop 647 -> 542 SBP 105 - Per interventional cardiology plan for RHC/LHC +/- PCI 01/20 and plan for n.p.o. at midnight - [id number] 2 - Continue heparin GTT - Aspirin 81 mg once daily - Lipitor 80 mg once daily - Lasix 40 mg IV twice daily - Lopressor 20 mg twice daily - Lipids in a.m. - Strict I's and O's, daily weights, telemetry - K>4 and Mg >2 * Assessment & Plan Note - Teresa Membreno PA-C - 01/19/2025 2:47 PM EDT Associated Problem(s): GERD (gastroesophageal reflux disease) - Will hold bowel regimen and if patient continues to have diarrhea consider sampling her stool - Protonix 40 mg once daily * Assessment & Plan Note - Teresa Membreno PA-C - 01/19/2025 2:47 PM EDT Associated Problem(s): Metabolic acidosis (Resolved 01/19/2025) Lactic 4.4 -> 1.4 Bicarb 19 -> 25 - Trend labs * Assessment & Plan Note - Teresa Membreno PA-C - 01/19/2025 2:47 PM EDT Associated Problem(s): Lactic acidosis (Resolved 01/19/2025) Lactic 4.4 -> 1.4 Bicarb 19 -> 25 - Trend labs * Assessment & Plan Note - Teresa Membreno PA-C - 01/19/2025 2:47 PM EDT Associated Problem(s): Iron deficiency anemia Hgb 10.0 TIBC 172, iron 21, iron sat 12 - Per patient she had a colonoscopy a couple years ago and it was unremarkable - Given bacteremia will hold off on iron supplementation - Trend labs * Assessment & Plan Note - Teresa Membreno PA-C - 01/19/2025 2:47 PM EDT Associated Problem(s): Bacteremia due to Gram-positive bacteria Afebrile, WBC 10.9 S/p azithromycin and cefepime - ID consulted, appreciate recommendations - Per previous notes BC at OSH grew gram-positive chains. Blood cultures 01/18 no growth to date. - Continue ceftriaxone - Trend labs * Assessment & Plan Note - Teresa Membreno PA-C - 01/19/2025 2:47 PM EDT Associated Problem(s): Leukocytosis (Resolved 01/19/2025) Afebrile, WBC 10.9 S/p azithromycin and cefepime - ID consulted, appreciate recommendations - Per previous notes BC at OSH grew gram-positive chains. Blood cultures 01/18 no growth to date. - Continue ceftriaxone - Trend labs * Assessment & Plan Note - Teresa Membreno PA-C - 01/19/2025 2:47 PM EDT Associated Problem(s): Diarrhea - Will hold bowel regimen and if patient continues to have diarrhea consider sampling her stool - Protonix 40 mg once daily * Critical Care Communication - Vicki Burnham DO - 01/19/2025 11:42 AM EDT Critical Care Communication This is a communication tool to be used by providers for patients in the ICU. This note is not part of the patient's legal medical record but all documentation can be tracked and audited. Patient Demographics KAROL FRIAS 1955 69 y.o. Allergies[1] Reason for admission: NSTEMI Type I Hospital course of events: Patient presented with acute shortness of breath found to be in a fib with RVR and significant NSTEMI with trops 2K-> 4K, given heparin load and ASA 162, transferred to [facility] for additional care.EKG here NSR without ischemic changes. HS 647 -> 542. Lactic acidosis 4.4 -> 2.7 -> 1.4. proBNP 12,000. Echo showed LFEV 45%, severe hypo to akinesis of mid anterior, midanterolateral, mid an teroseptal, and mid inelateral segments, RV normal; mild aortic stenosis, mild to moderate TR, mildly elevated RV systolic pressure at 47. LVIDD 5.1; LVOT VTE 19.3. Patient was continued on heparin gtt, given aspirin, and atorvastatin, seen by interventional cards, plan for LHC during this admission, likely 01/20. Importantly, [place] called with results that patient's blood cultures from OSH are growing gram positive cocci in chains, she was continued on IV antibiotics and ID was consulted. Shock state likely multifactorial with possible septic and cardiogenic components. Course complicated by a fib with RVR, requiring IV lopressor x2 and oral metoprolol for conversion to NSR. Had significant conversion pause, however was asymptomatic and vitally stable. OK for transfer for floors with plan for cardiology following and ischemic evaluation with C during admission. Consults: Interventional Cardiology Infectious Disease Procedures: None Problem list: Principal Problem: Cardiogenic shock (HCC) (POA: Yes) Resolved Problems: Issues for follow up: - Follow official plan/ recommendations of interventional cardiology - Follow ID recommendations, continue IV antibiotics for bacteremia - Continue titration of GDMT after cath - Continue heparin gtt until cath - Continue diuresis for volume optimization, goal today -2 to -3L Vicki Burnham DO Internal Medicine PGY2 TT (preferred) and Epic Chat [1] Allergies Allergen Reactions Codeine Unknown/Patient and Family Unable to Define Flagyl [Metronidazole] Unknown/Patient and Family Unable to Define Hydromorphone Unknown/Patient and Family Unable to Define Hydroxychloroquine Unknown/Patient and Family Unable to Define Methotrexate Unknown/Patient and Family Unable to Define Oxycodone Unknown/Patient and Family Unable to Define Tramadol Unknown/Patient and Family Unable to Define * Plan of Care - Archana Carr RN - 01/19/2025 9:42 AM EDT Initial Case Management Care Plan Note Assessment completed with patient and/or patient's quality audit representative, medical record review and discussion with clinical team. CC met with the patient using social distancing. Provided a Case Coordination packet with contact information, CC pamphlet and Your Next Step: Care Outside the Hospital brochure to the patient and/or patient quality audit representative. Summary: Karol Frias is a 69 y.o. female w/ PMHx of hypertension, HLD, and obesity- BMI 32, who was transferred from [facility] with NSTEMI, and was admitted to ICU with cardiogenic shock. Pt lives with her spouse Guanako in a 2 level [facility] with 2 BARNEY & 1 FOS to bed/bath. 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 Pt is declining HC or rehabneeds at this time. Anticipated transition plan: Home- declines HC or rehab Caregiver/responsible person supports: Spouse- Guanako PCP: Updated in [facility]- pt believes she sees Dr. Ozuna in [place] Anticipated transportation: [facility] Referrals made: None at this time, pt declining HC/rehab Barriers to discharge: hep gtt, IV lasix, int cards consult Problem: Adult Inpatient Plan of Care Goal: Readiness for Transition of Care Outcome: Progressing Intervention: Mutually Develop Transition Plan Flowsheets (Taken 01/19/2025 0937) Equipment Currently Used at Home: none Concerns Comments: declines HC/rehab needs Readmission Within the Last 30 Days: no previous admission in last 30 days Transportation Anticipated: family or friend will provide Transportation Concerns: none Concerns to be Addressed: denies needs/concerns at this time Patient/Family Anticipated Services at Transition: none Patient/Family Anticipates Transition to: home with family Archana Carr 01/19/2025 9:42 AM * Plan of Care - Katy Whitaker RN - 01/19/2025 6:32 AM EDT Problem: Adult Inpatient Plan of Care Goal: Plan of Care Review Outcome: Progressing Flowsheets (Taken 01/19/2025 0632) Plan of Care Reviewed With: patient Progress: improving Outcome Evaluation: Patient remains in B10I. Patient sleeping between care. C/o of headache overnight, med given with therapeutic effect. Medications given per NOV. No other complains overnight. Safety precautions maintained. Katy Whitaker 01/19/2025 6:32 AM documented in this encounter Plan of Treatment Upcoming Encounters Date Type Department Care Team (Late st Contact Info) Description 01/29/2025 11:00 AM EDT Infusion [facility] [address] [place] [address] Pending Results Name Type Priority Associated Diagnoses Date /Time [facility] CARDIAC POC ULTRASOUND Imaging Routine NSTEMI (non-ST elevated myocardial infarction) (HCC) Cardiogenic shock (HCC) 01/18/2025 8:55 PM EDT Scheduled Orders Name Type Priority Associated Diagnoses Orde r Schedule ECG 12 lead ECG Routine Once for 1 Oc currences starting 01/19/2025 until 01/19/2025 Basic Metabolic Panel Lab Routine Acute decompensated heart failure (HCC) Expected: 01/26/2025, Expires: 01/23/2026 Scheduled Referrals Name Type Priority Associated Diagnoses Orde r Schedule AMB Referral to Heart Failure Clinic/ Bridge Infusion Outpatient Referral Routine Cardiogenic shock (HCC) Ordered: 01/22/2025 documented as of this encounter Procedures Procedure Name Priority Date/Time Associated Diagnosis [...] N-TERMINAL Routine 01/20/2025 7: 55 AM EDT COMPLETE BLOOD COUNT, WITHOUT DIFFERENTIAL Routine 01/20/2025 7:55 AM EDT MAGNESIUM Routine 01/20/2025 7:55 AM EDT LIPID PANEL Routine 01/20/2025 7:55 AM EDT BASIC METABOLIC PANEL Routine 01/20/2025 7:55 AM EDT HEPARIN ASSAY (ANTI-XA) Routine 01/21/20 3:51 AM EDT HEPARIN ASSAY (ANTI-XA) Routine 01/20/20 9:44 PM EDT HEPARIN ASSAY (ANTI-XA) Routine 01/20/20 2:00 PM EDT ECG 12-LEAD Routine 01/19/2025 9:09 AM EDT IRON AND TOTAL IRON BINDING CAPACITY Routine 01/19/2025 8:00 AM EDT POTASSIUM Routine 01/19/2025 8:00 AM EDT MAGNESIUM Routine 01/19/2025 8:00 AM EDT FOLATE LEVEL Routine 01/19/2025 8:00 AM EDT VITAMIN B12 Routine 01/19/2025 8:00 AM EDT ECG 12-LEAD Routine 01/19/2025 7:31 AM EDT HEPARIN ASSAY (ANTI-XA) Routine 01/20/20 6:01 AM EDT HEMOGLOBIN A1C WITH ESTIMATED AVERAGE GLUCOSE Routine 01/18/2025 11:46 PM EDT COMPLETE BLOOD COUNT, WITHOUT DIFFERENTIAL Routine 01/18/2025 11:46 PM EDT MAGNESIUM Routine 01/18/2025 11:46 PM EDT BASIC METABOLIC PANEL Routine 01/18/2025 11:46 PM EDT [facility] CARDIAC POC ULTRASOUND Routine 01/18/2025 8:55 PM EDT NSTEMI (non-ST elevated myocardial infarction) (HCC) Cardiogenic shock (HCC) HEPARIN ASSAY (ANTI-XA) Routine 01/19/20 8:30 PM EDT LACTIC ACID, PLASMA Routine 01/18/2025 6 :23 PM EDT PROBNP, N-TERMINAL Routine 01/18/2025 6: 22 PM EDT XR CHEST 1 VIEW-PORTABLE Routine 01/18/2025 4:47 PM EDT INFLUENZA A/B, RSV, SARS-COV-2 ESSIE MULTIPLEX Routine 01/18/2025 4:43 PM EDT URINALYSIS WITH REFLEX TO MICROSCOPIC STAT 01/18/2025 4:43 PM EDT NASAL MRSA SCREEN, [...] PLASMA Timed 01/18/2025 1 2:33 PM EDT BLOOD CULTURE (HOSP LAB) STAT 01/18/2025 10:39 AM EDT HIGH SENSITIVITY TROPONIN T CARD 01/18/2025 10:39 AM EDT COMPLETE BLOOD COUNT, WITH DIFFERENTIAL STAT 01/18/2025 10:39 AM EDT PARTIAL THROMBOPLASTIN TIME (PTT) STAT 01/18/2025 10:39 AM EDT PROTIME-INR STAT 01/18/2025 10:39 AM EDT MAGNESIUM STAT 01/18/2025 10:39 AM EDT LACTIC ACID, PLASMA Timed 01/18/2025 1 0:39 AM EDT COMPREHENSIVE METABOLIC PANEL STAT 01/18/2025 10:39 AM EDT ECG 12-LEAD ED Critical 01/18/2025 10:10 AM EDT documented in this encounter Results * Magnesium (AM) (01/23/2025 6:11 AM EDT) Pathologist [facility] Magnesium 2.0 1.6 - 2.7 mg/dL 01/23/2025 7:17 AM [facility] Blood Blood specimen / Unknown 01/23/2025 6:11 AM EDT 01/23/2025 6:44 AM EDT us Brittany Sheehan MD LAB BLOOD ORDERABLES [place] [address], [place] [address] * (ABNORMAL) Basic Metabolic Panel (01/23/2025 6:11 AM EDT) [facility] Glucose 88 65 - 99 mg/dL 01/23/2025 7:17 AM [facility] Comment:Fasting: <100 mg/dL, Non-Fasting: <200 mg/dL (ADA 2005) Blood Urea Nitrogen (BUN) 32(H) 8 - 21 mg/dL 01/23/2025 7:17 AM [facility] Creatinine 1.3(H) 0.4 - 1.1 mg/dL 01/23/2025 7:17 AM [facility] eGFR 45(L) >59 01/23/2025 7:17 AM [facility] Comment:CKD-EPI (2020) in mL /min/1.73 sq meters. Sodium 142 136 - 145 mmol/L 01/23/2025 7:17 AM [facility] Potassium 3.8 3.4 - 5.3 mmol/L 01/23/2025 7:17 AM [facility] Chloride 100 98 - 107 mmol/L 01/23/2025 7:17 AM [facility] CO2 27 22 - 33 mmol/L 01/23/2025 7:17 AM [facility] Anion Gap 15 7 - 17 01/23/2025 7:17 AM [facility] Calcium 9.3 8.7 - 10.5 mg/dL 01/23/2025 7:17 AM [facility] BUN/Creatinine Ratio 25 10.0 - 25.0 Ratio 01/23/2025 7:17 AM [facility] Blood Blood specimen / Unknown 01/23/2025 6:11 AM EDT 01/23/2025 6:44 AM EDT us Brittany Sheehan MD LAB BLOOD ORDERABLES Final Res ult [address] [address], [address] [address] * (ABNORMAL) COMPLETE BLOOD COUNT, WITHOUT DIFFERENTIAL (01/22/2025 8:02 AM EDT) White Blood Cell Count 6.8 4.0 - 11.0 Thou/uL 01/22/2025 8:38 AM [facility] Platelet Count 257 150 - 450 Thou/uL 01/22/2025 8:38 AM [facility] Hemoglobin 12.4 11.7 - 15.7 g/dL 01/22/2025 8:38 AM [facility] Hematocrit 38.1 35.0 - 47.0 % 01/22/2025 8:38 AM [facility] Red Blood Cell Count 4.01 4.00 - 5.40 Mil/uL 01/22/2025 8:38 AM [facility] MCV 95 80 - 100 fL 01/22/2025 8:38 AM [facility] MCH 30.9 27.0 - 31.0 pg 01/22/2025 8:38 AM [facility] MCHC 32.5 30.0 - 36.0 g/dL 01/22/2025 8:38 AM [facility] RDW 14.7(H) 11.5 - 14.5 % 01/22/2025 8:38 AM [facility] MPV 10.0 7.5 - 12.5 fL 01/22/2025 8:38 AM [facility] Blood Blood specimen / Unknown 01/22/2025 8:02 AM EDT 01/22/2025 8:27 AM EDT us Brittany Sheehan MD LAB BLOOD ORDERABLES Final Res ult Performing Organization Address City/[facility]/ZIP [place] [address], [place] [address] * Magnesium (AM) (01/22/2025 8:02 AM EDT) Magnesium 2.1 1.6 - 2.7 mg/dL 01/22/2025 9:03 AM EDT [facility] Blood Blood specimen / Unknown 01/22/2025 8:02 AM EDT 01/22/2025 8:27 AM EDT Brittany Sheehan MD LAB BLOOD ORDERABLES Final Res ult Performing Organization Address City/[facility]/ZIP [place] [address], [address] [address] * (ABNORMAL) Basic Metabolic Panel (01/22/2025 8:02 AM EDT) Glucose 82 65 - 99 mg/dL 01/22/2025 9:03 AM [facility] Comment:Fasting: <100 mg/dL, Non-Fasting: <200 mg/dL (ADA 2005) Blood Urea Nitrogen (BUN) 25(H) 8 - 21 mg/dL 01/22/2025 9:03 AM [facility] Creatinine 1.0 0.4 - 1.1 mg/dL 01/22/2025 9:03 AM [facility] eGFR 61 >59 01/22/2025 9:03 AM [facility] Comment:CKD-EPI (2020) in mL /min/1.73 sq meters. Sodium 143 136 - 145 mmol/L 01/22/2025 9:03 AM [facility] Potassium 4.1 3.4 - 5.3 mmol/L 01/22/2025 9:03 AM EDT [facility] Chloride 101 98 - 107 mmol/L 01/22/2025 9:03 AM EDT [facility] CO2 27 22 - 33 mmol/L 01/22/2025 9:03 AM EDT [facility] Anion Gap 15 7 - 17 01/22/2025 9:03 AM EDT [facility] Calcium 10.1 8.7 - 10.5 mg/dL 01/22/2025 9:03 AM EDT [facility] BUN/Creatinine Ratio 25 10.0 - 25.0 Ratio 01/22/2025 9:03 AM EDT [facility] Blood Blood specimen / Unknown 01/22/2025 8:02 AM EDT 01/22/2025 8:27 AM EDT Brittany Sheehan MD LAB BLOOD ORDERABLES Final Res ult Performing Organization Address [facility]/ZIP [place] [address], [place] [address] * Magnesium (AM) (01/21/2025 8:19 AM EDT) Magnesium 1.7 1.6 - 2.7 mg/dL 01/21/2025 9:16 AM EDT [facility] Blood Blood specimen / Unknown 01/21/2025 8:19 AM EDT 01/21/2025 8:56 AM EDT Levi Perrin PA-C LAB BLOOD ORDERABLES [place] [address], [place] [address] * Basic Metabolic Panel (01/21/2025 8:19 AM EDT) Glucose 76 65 - 99 mg/dL 01/21/2025 9:16 AM EDT [facility] Comment:Fasting: <100 mg/dL, Non-Fasting: <200 mg/dL (ADA 2005) Blood Urea Nitrogen (BUN) 16 8 - 21 mg/dL 01/21/2025 9:16 AM [facility] Creatinine 0.8 0.4 - 1.1 mg/dL 01/21/2025 9:16 AM [facility] eGFR 80 >59 01/21/2025 9:16 AM [facility] Comment:CKD-EPI (2020) in mL /min/1.73 sq meters. Sodium 140 136 - 145 mmol/L 01/21/2025 9:16 AM [facility] Potassium 3.7 3.4 - 5.3 mmol/L 01/21/2025 9:16 AM [facility] Chloride 103 98 - 107 mmol/L 01/21/2025 9:16 AM [facility] CO2 25 22 - 33 mmol/L 01/21/2025 9:16 AM [facility] Anion Gap 12 7 - 17 01/21/2025 9:16 AM [facility] Calcium 9.5 8.7 - 10.5 mg/dL 01/21/2025 9:16 AM [facility] BUN/Creatinine Ratio 20 10.0 - 25.0 Ratio 01/21/2025 9:16 AM [facility] Blood Blood specimen / Unknown 01/21/2025 8:19 AM EDT 01/21/2025 8:56 AM EDT Levi Perrin PA-C LAB BLOOD ORDERABLES [place] [address], [address] [address] * Heparin Assay (Anti Xa) (01/20/2025 5:04 PM EDT) Anti Xa 0.75 IU/mL 01/20/2025 6:13 PM [facility] Comment: (NOTE) Heparin Thromboembolic/Standard/Full Dose Protocol: [...] IV HEPARIN, UNFRACTIONATED 01/20/2025 11:23 AM EDT [facility] Blood Blood specimen / Unknown 01/20/2025 5:04 PM EDT 01/20/2025 5:59 PM EDT us Levi Perrin PA-C LAB BLOOD ORDERABLES Final Re sult [address] [address], [address] [address] * CC CORANGIO +LV+L/R CATH (01/20/2025 3:30 PM EDT) Anatomical Region Laterality Modality Radiographic Corinne ging Narrative 01/20/2025 3:45 PM EDT Table formatting from the original result was not included. Images from the original result were not included. [facility] - Cardiac Catheterization Laboratory PATIENT DEMOGRAPHIC INFORMATION Name: Karol Frias : 1955 69 y.o. Sex: female Gender: female Procedure Date: 01/20/2025 PROCEDURE DETAILS [employer] Debeader: Geovanni Howell MD Fellow: None Marketing Research Analyst(s): none Indications for Procedure: Heart failure Referring [...] medical floor PROCEDURE FINDINGS Tracings available in [facility] log report Findings ?? Diagnostic ??Dominance: Right [...] hypertension, hyperlipidemia, obesity who initially presented to [facility] with chief complaint of chest pain with associated shortness of breath, patient was found to have elevated troponins, CT scan was negative for pulmonary embolism subsequently patient was transferred to [facility] for cardiac catheterization. Patient was found [...] this patient that I request from a [facility] PA/RESIDENTIAL APPRAISER/fellow/staff member. Geovanni Howell MD [facility] 01/20/2025 ??3:44 PM Coronary Findings Diagnostic Dominance: [...] documented. Cardiac Protocol CAD and heart failure us Geovanni Howell MD CV CARDIAC CATH ORDERABLES Fin al Result * (ABNORMAL) POCT O2 Saturation (AVOX) (01/20/2025 3:17 PM EDT) RA 65.6 60 - 75 % PA 64.2 60 - 75 % AO 93.8(A) 95 - 99 % Lot Number [id number] [employer] Pass Pass Blood 01/20/2025 3:17 PM EDT us Geovanni Howell MD POINT OF CARE TEST ORDERABLES Final Result * Heparin Assay (Anti Xa) (01/20/2025 10:13 AM EDT) Anti Xa 0.43 IU/mL 01/20/2025 10:44 AM EDT [facility] Comment: (NOTE) Heparin Thromboembolic/Standard/Full Dose Protocol: [...] 1.00 IU/mL Anticoagulant IV HEPARIN, UNFRACTIONATED 01/20/2025 4:30 AM EDT [facility] Blood Blood specimen / Unknown 01/20/2025 10:13 AM EDT 01/20/2025 10:30 AM EDT Brittany Sheehna MD LAB BLOOD ORDERABLES Final Res ult Performing Organization Address [facility] [place] [address], [place] [address] * (ABNORMAL) proBNP, N-terminal (01/20/2025 7:55 AM EDT) proBNP, N-terminal 12,481(H) <125 pg/mL 01/20/2025 10:36 AM EDT [facility] 01/20/2025 7:55 AM EDT 01/20/2025 8:37 AM EDT Teresa Membreno PA-C LAB BLOOD ORDERABLES Liz l Result Performing Organization Address [facility] [place] [address], [place] [address] * Magnesium (01/20/2025 7:55 AM EDT) Magnesium 1.7 1.6 - 2.7 mg/dL 01/20/2025 9:02 AM EDT [facility] Blood Blood specimen / Unknown 01/20/2025 7:55 AM EDT 01/20/2025 8:37 AM EDT us Teresa Membreno PA-C LAB BLOOD ORDERABLES Liz maradiaga Result [facility] [address] [place] [address], [facility] [address] [place] [address] * (ABNORMAL) Basic Metabolic Panel (01/20/2025 7:55 AM EDT) Glucose 71 65 - 99 mg/dL 01/20/2025 9:02 AM T [facility] Comment:Fasting: <100 mg/dL, Non-Fasting: <200 mg/dL (ADA 2004) Blood Urea Nitrogen (BUN) 20 8 - 21 mg/dL 01/20/2025 9:02 AM [facility] Creatinine 0.9 0.4 - 1.1 mg/dL 01/20/2025 9:02 AM [facility] eGFR 69 >59 01/20/2025 9:02 AM [facility] Comment:CKD-EPI (2020) in mL /min/1.73 sq meters. Sodium 144 136 - 145 mmol/L 01/20/2025 9:02 AM [facility] Potassium 3.6 3.4 - 5.3 mmol/L 01/20/2025 9:02 AM [facility] Chloride 108(H) 98 - 107 mmol/L 01/20/2025 9:02 AM [facility] CO2 24 22 - 33 mmol/L 01/20/2025 9:02 AM [facility] Anion Gap 12 7 - 17 01/20/2025 9:02 AM [facility] Calcium 9.3 8.7 - 10.5 mg/dL 01/20/2025 9:02 AM [facility] BUN/Creatinine Ratio 22 10.0 - 25.0 Ratio 01/20/2025 9:02 AM [facility] Blood Blood specimen / Unknown 01/20/2025 7:55 AM EDT 01/20/2025 8:37 AM EDT us Teresa Membreno PA-C LAB BLOOD ORDERABLES Liz l Result Performing Organization Address City/[facility]/ZIP Co de Phone Number [address] [address], [address] [address] * (ABNORMAL) COMPLETE BLOOD COUNT, WITHOUT DIFFERENTIAL (01/20/2025 7:55 AM EDT) [facility] White Blood Cell Count 6.9 4.0 - 11.0 Thou/uL 01/20/2025 8:50 AM [facility] Platelet Count 178 150 - 450 Thou/uL 01/20/2025 8:50 AM [facility] Hemoglobin 10.8(L) 11.7 - 15.7 g/dL 01/20/2025 8:50 AM [facility] Hematocrit 34.2(L) 35.0 - 47.0 % 01/20/2025 8:50 AM [facility] Red Blood Cell Count 3.49(L) 4.00 - 5.40 Mil/uL 01/20/2025 8:50 AM [facility] MCV 98 80 - 100 fL 01/20/2025 8:50 AM [facility] MCH 30.9 27.0 - 31.0 pg 01/20/2025 8:50 AM [facility] MCHC 31.6 30.0 - 36.0 g/dL 01/20/2025 8:50 AM [facility] RDW 15.3(H) 11.5 - 14.5 % 01/20/2025 8:50 AM [facility] MPV 10.0 7.5 - 12.5 fL 01/20/2025 8:50 AM [facility] Blood Blood specimen / Unknown 01/20/2025 7:55 AM EDT 01/20/2025 8:37 AM EDT Teresa Membreno PA-C LAB BLOOD ORDERABLES Liz l Result Performing Organization Address City/[facility]/ZIP Co de Phone Number [address] [address], [address] [address] * Lipid Panel (AM) (01/20/2025 7:55 AM EDT) [facility] Cholesterol, Total 126 <200 mg/dL 2024 9:02 AM T [facility] Triglycerides 117 <150 mg/dL 01/20/2025 9:02 AM [facility] Cholesterol, HDL 52 >39 mg/dL 01/21/20 9:02 AM [facility] Estimated LDL 51 <130 mg/dL 01/20/2025 9:02 AM [facility] Comment: NCEP Guidelines: ?< 100 mg/dL ??Optimal 100 - 129 mg/dL ??Near Optimal/Above Optimal 130 - 159 mg/dL ??Borderline High 160 - 189 mg/dL ??High ??>/= 190 mg/dL ??Very High Cholesterol/HDL Ratio 2.4 0.0 - 5.0 Ratio 01/20/2025 9:02 AM [facility] Comment: Relative Risk ? Ratio - Male ? Ratio - Female ?0.5 ?3.4 ?3.3 ?1.0 ?5.0 ?4.4 ?2.0 ?9.6 ?7.1 ?3.0 ? 23.4 ? 11.0 Blood Blood specimen / Unknown 01/20/2025 7:55 AM EDT 01/20/2025 8:37 AM EDT Teresa Membrneo PA-C LAB BLOOD ORDERABLES Liz maradiaga Result [facility] [address] [place] [address], [facility] [address] [place] [address] * Heparin Assay (Anti Xa) (01/20/2025 3:51 AM EDT) Anti Xa 0.53 IU/mL 01/20/2025 4:12 AM EDT [facility] Comment: (NOTE) Heparin Thromboembolic/Standard/Full Dose Protocol: [...] - 1.00 IU/mL Anticoagulant IV HEPARIN, UNFRACTIONATED 01/19/2025 11:06 PM EDT [facility] Blood Blood specimen / Unknown 01/20/2025 3:51 AM EDT 01/20/2025 3:59 AM EDT us Brittany Sheehan MD LAB BLOOD ORDERABLES Final Res ult Performing Organization Address City/State/[facility] Co de Phone Number [facility] [address] [place] [address], [facility] [address] [place] [address] * Heparin Assay (Anti Xa) (01/19/2025 9:44 PM EDT) Anti Xa 0.39 IU/mL 01/19/2025 10:05 PM EDT [facility] Comment: (NOTE) Heparin Thromboembolic/Standard/Full Dose Protocol: [...] - 1.00 IU/mL Anticoagulant IV HEPARIN, UNFRACTIONATED 01/19/2025 7:51 PM EDT [facility] Blood Blood specimen / Unknown 01/19/2025 9:44 PM EDT 01/19/2025 9:48 PM EDT Vandana Barnes MD LAB BLOOD ORDERABLES Final R esult Performing Organization Address City/State/[facility] [place] [address], [place] [address] * Heparin Assay (Anti Xa) (01/19/2025 2:00 PM EDT) Anti Xa 0.26 IU/mL 01/19/2025 2:55 PM EDT [facility] Comment: (NOTE) Heparin Thromboembolic/Standard/Full Dose Protocol: [...] - 1.00 IU/mL Anticoagulant IV HEPARIN, UNFRACTIONATED 01/19/2025 2:03 PM EDT [facility] Blood Blood specimen / Unknown 01/19/2025 2:00 PM EDT 01/19/2025 2:37 PM EDT us Vinicio Bedolla MD LAB BLOOD ORDERABLES Final Re sult Performing Organization Address [facility] Co de Phone Number [facility] [address] [place] [address], [address] [address] * ECG 12 lead (01/19/2025 9:09 AM EDT) Systolic BP 137 mmHg EKG [facility] Diastolic BP 58 mmHg EKG [facility] Ventricular rate 65 BPM EKG [facility] Atrial rate 65 BPM EKG [facility] P-R interval 128 ms EKG [facility] QRS duration 72 ms EKG [facility] Q-T interval 434 ms EKG [facility] QTC calculation (Bazett) 451 ms EKG [facility] P axis 28 degrees EKG [facility] R axis 63 degrees EKG [facility] T axis 110 degrees EKG [facility] 01/19/2025 9:09 AM EDT Narrative EKG [facility] - 01/19/2025 9:54 AM EDT Normal [...] Batista John ([id number]) on 01/19/2025 9:53:56 AM Moy Batista MD ECG ORDERABLES Final Result Performing Organization Address City/[facility]/ZIP Co de Phone Number EKG [facility] * Folate Level (01/19/2025 8:00 AM EDT) Folate, Serum >20.0 >7.2 ng/mL 01/19/2025 10:12 AM EDT [facility] Comment:Specimen hemolyzed. Results may be artifactually elevated. Blood Blood specimen / Unknown 01/19/2025 8:00 AM EDT 01/19/2025 9:04 AM EDT us Vinicio Bedolla MD LAB BLOOD ORDERABLES Final Re sult Performing Organization Address [facility] [place] [address], [place] [address] * Vitamin B12 (01/19/2025 8:00 AM EDT) Vitamin B12 520 243 - 894 pg/mL 01/19/2025 9:48 AM EDT [facility] Blood Blood specimen / Unknown 01/19/2025 8:00 AM EDT 01/19/2025 9:04 AM EDT us Vinicio Bedolla MD LAB BLOOD ORDERABLES Final Re sult Performing Organization Address [facility] [place] [address], [address] [address] * (ABNORMAL) Iron and Total Iron Binding Capacity (01/19/2025 8:00 AM EDT) Iron 21(L) 59 - 151 ug/dL 01/19/2025 9:48 AM EDT [facility] UIBC 151 112 - 346 ug/dL 01/19/2025 9:48 AM EDT [facility] Total Iron Binding Capacity 172 100 - 400 ug/dL 01/19/2025 9:48 AM EDT [facility] Iron Sat 12(L) 20 - 50 % 01/19/2025 9:48 AM EDT [facility] Blood Blood specimen / Unknown 01/19/2025 8:00 AM EDT 01/19/2025 9:04 AM EDT Vinicio Bedolla MD LAB BLOOD ORDERABLES Final Re sult Performing Organization Address [facility]/ZIP Co de Phone Number [address] [address], [address] [address] * Magnesium (Routine) (01/19/2025 8:00 AM EDT) Magnesium 2.2 1.6 - 2.7 mg/dL 01/19/2025 9:48 AM EDT [facility] Blood Blood specimen / Unknown 01/19/2025 8:00 AM EDT 01/19/2025 9:04 AM EDT Aarti Spears APRN LAB BLOOD ORDERABLES Final Result Performing Organization Address [facility] Co de Phone Number [address] [address], [address] [address] * Potassium (01/19/2025 8:00 AM EDT) Potassium 4.0 3.4 - 5.3 mmol/L 01/19/2025 9:48 AM EDT [facility] Blood Blood specimen / Unknown 01/19/2025 8:00 AM EDT 01/19/2025 9:04 AM EDT Aarti Spears APRN LAB BLOOD ORDERABLES Final Result Performing Organization Address City/[facility] Co de Phone Number [address] [address], [address] [address] * ECG 12 lead (01/19/2025 7:31 AM EDT) Systolic BP 116 mmHg EKG [facility] Diastolic BP 62 mmHg EKG [facility] Ventricular rate 154 BPM EKG [facility] Atrial rate 163 BPM EKG [facility] QRS duration 70 ms EKG [facility] Q-T interval 296 ms EKG [facility] QTC calculation (Bazett) 474 ms EKG [facility] R axis 64 degrees EKG [facility] T axis 110 degrees EKG [facility] 01/19/2025 7:31 AM EDT Narrative EKG [facility] - 01/19/2025 8:10 AM EDT Atrial fibrillation with rapid ventricular response Nonspecific ST abnormality Abnormal ECG Confirmed by MD Murdock John ([id number]) on 01/19/2025 8:10:36 AM Procedure Note Moy Murdock MD - 01/19/2025 Atrial fibrillation with rapid ventricular response Nonspecific ST abnormality Abnormal ECG Confirmed by MD Murdock John ([id number]) on 01/19/2025 8:10:36 AM Moy Murdock MD ECG ORDERABLES Final Result [facility] * Heparin Assay (Anti Xa) (01/19/2025 6:01 AM EDT) Anti Xa 0.28 IU/mL 01/19/2025 6:47 AM EDT [facility] Comment: (NOTE) Heparin Thromboembolic/Standard/Full Dose Protocol: [...] - 1.00 IU/mL Anticoagulant IV HEPARIN, UNFRACTIONATED 01/19/2025 6:01 AM EDT [facility] Blood Blood specimen / Unknown 01/19/2025 6:01 AM EDT 01/19/2025 6:29 AM EDT us Vinicio Bedolla MD LAB BLOOD ORDERABLES Final Re sult [address] [address], [address] [address] * Hemoglobin A1C with Estimated Average Glucose (01/18/2025 11:46 PM EDT) Hemoglobin A1C 5.3 <5.7 % 01/19/2025 12:38 PM EDT [facility] Comment: A1c% ? Interpretation 5.7 - 6.0 ?Increase risk of diabetes 6.1 - 6.4 ?Higher risk of diabetes > or = 6.5 ?? Consistent with diabetes Diabetes Care, 33(Supp 1):S1-S61, 2009 Estimated Average Glucose 105 mg/dL 01/19/2025 12:38 PM EDT [facility] Blood specimen / Unknown 01/18/2025 11:46 PM EDT 01/19/2025 12:18 AM EDT us Vinicio Bedolla MD LAB BLOOD ORDERABLES Final Re sult Performing Organization Address [facility] [place] [address], [place] [address] * Magnesium (Early AM) (01/18/2025 11:46 PM EDT) Magnesium 1.7 1.6 - 2.7 mg/dL 01/19/2025 12:39 AM EDT [facility] Blood Blood specimen / Unknown 01/18/2025 11:46 PM EDT 01/19/2025 12:18 AM EDT us Vinicio Bedolla MD LAB BLOOD ORDERABLES Final Re sult Performing Organization Address [facility] [place] [address], [place] [address] * (ABNORMAL) Basic Metabolic Panel (Early AM) (01/18/2025 11:46 PM EDT) Glucose 83 65 - 99 mg/dL 01/19/2025 12:39 AM T [facility] Comment:Fasting: <100 mg/dL, Non-Fasting: <200 mg/dL (ADA 2005) Blood Urea Nitrogen (BUN) 23(H) 8 - 21 mg/dL 01/19/2025 12:39 AM T [facility] Creatinine 0.8 0.4 - 1.1 mg/dL 01/19/2025 12:39 AM [facility] eGFR 80 >59 01/19/2025 12:39 AM [facility] Comment:CKD-EPI (2020) in mL /min/1.73 sq meters. Sodium 143 136 - 145 mmol/L 01/19/2025 12:39 AM [facility] Potassium 3.3(L) 3.4 - 5.3 mmol/L 01/19/2025 12:39 AM [facility] Chloride 108(H) 98 - 107 mmol/L 01/19/2025 12:39 AM [facility] CO2 25 22 - 33 mmol/L 01/19/2025 12:39 AM [facility] Anion Gap 10 7 - 17 01/19/2025 12:39 AM [facility] Calcium 9.0 8.7 - 10.5 mg/dL 01/19/2025 12:39 AM [facility] BUN/Creatinine Ratio 29(H) 10.0 - 25.0 Ratio 01/19/2025 12:39 AM [facility] Blood Blood specimen / Unknown 01/18/2025 11:46 PM EDT 01/19/2025 12:18 AM EDT us Vinicio Bedolla MD LAB BLOOD ORDERABLES [place] [address], [place] [address] * (ABNORMAL) Complete Blood Count WITHOUT Differential - in AM (01/18/2025 11:46 PM EDT) White Blood Cell Count 10.9 4.0 - 11.0 Thou/uL 01/19/2025 12:26 AM [facility] Platelet Count 192 150 - 450 Thou/uL 01/19/2025 12:26 AM [facility] Hemoglobin 10.0(L) 11.7 - 15.7 g/dL 01/19/2025 12:26 AM [facility] Hematocrit 31.4(L) 35.0 - 47.0 % 01/19/2025 12:26 AM [facility] Red Blood Cell Count 3.19(L) 4.00 - 5.40 Mil/uL [facility] 80 - 100 fL 01/19/2025 12:26 AM T [facility] MCH 31.3(H) 27.0 - 31.0 pg 01/19/2025 12:26 AM [facility] MCHC 31.8 30.0 - 36.0 g/dL 01/19/2025 12:26 AM T [facility] RDW 15.1(H) 11.5 - 14.5 % 01/19/2025 12:26 AM [facility] MPV 10.0 7.5 - 12.5 fL 01/19/2025 12:26 AM [facility] Blood Blood specimen / Unknown 01/18/2025 11:46 PM EDT 01/19/2025 12:18 AM EDT us Vinicio Bedolla MD LAB BLOOD ORDERABLES [place] [address], [facility] [address] [place] [address] * Heparin Assay (Anti Xa) (01/18/2025 8:30 PM EDT) Anti Xa 0.27 IU/mL 01/18/2025 11:30 PM EDT [facility] Comment: (NOTE) Heparin Thromboembolic/Standard/Full Dose Protocol: [...] - 1.00 IU/mL Anticoagulant IV HEPARIN, UNFRACTIONATED 01/18/2025 8:12 PM EDT [facility] Blood Blood specimen / Unknown 01/18/2025 8:30 PM EDT 01/18/2025 10:56 PM EDT us Vinicio Bedolla MD LAB BLOOD ORDERABLES Final Re sult [address] [address], [address] [address] * Lactic Acid, Plasma (STAT) (01/18/2025 6:23 PM EDT) Lactic Acid 1.4 0.5 - 1.9 mmol/L 01/18/2025 7:09 PM EDT [facility] Blood Blood specimen / Unknown 01/18/2025 6:23 PM EDT 01/18/2025 6:42 PM EDT us Vinicio Bedolla MD LAB BLOOD ORDERABLES Final Re sult Performing Organization Address City/[facility] [place] [address], [address] [address] * (ABNORMAL) proBNP, N-terminal (01/18/2025 6:22 PM EDT) Pathologist [facility] proBNP, N-terminal 12,046(H) <125 pg/mL 01/18/2025 7:11 PM EDT [facility] Blood Blood specimen / Unknown 01/18/2025 6:22 PM EDT 01/18/2025 6:42 PM EDT us Vinicio Bedolla MD LAB BLOOD ORDERABLES Final Re sult Performing Organization Address [facility] [place] [address], [address] [address] * XR Chest 1 view-Portable (01/18/2025 4:47 [...] Multiplex (FLUVID) (01/18/2025 4:43 PM EDT) Pathologist [facility] Influenza A Virus Not Detected Not Detected 01/18/2025 6:31 PM EDT [facility] Influenza B Virus Not Detected Not Detected 01/18/2025 6:31 PM EDT [facility] SARS-CoV-2 Not Detected Not Detected 01/18/2025 6:31 PM EDT [facility] Respiratory Syncytial Virus Not Detected Not Detected 01/18/2025 6:31 PM EDT [facility] Comment Negative results do not preclude SARS-CoV-2, Influenza or RSV infection and should not be used as the sole basis for treatment or other patient management decisions. 01/18/2025 6:31 PM EDT [facility] Swab, Nasopharyngeal Nasopharyngeal swab / Unknown 01/18/2025 4:43 PM EDT 01/18/2025 5:27 PM EDT Vinicio Bedolla MD MICROBIOLOGY - GENERAL ORDERA BLES Final Result [address] [address], [address] [address] * Nasal MRSA Screen, PCR (01/18/2025 4:43 PM EDT) MRSA Result Not Detected Not Detected 7:03 PM EDT [facility] Comment:Performed by the Xpe rt MRSA NxG Assay Swab, Anterior Nares Specimen from nose / Unknown 01/18/2025 4:43 PM EDT 01/18/2025 5:30 PM EDT Vinicio Bedolla MD MICROBIOLOGY - GENERAL ORDERA BLES Final Result Performing Organization Address City/[facility]/ZIP Co de Phone Number [address] [address], [address] [address] * Urinalysis with Reflex to Microscopic (01/18/2025 4:43 PM EDT) Color Straw 01/18/2025 5:48 PM EDT [facility] Clarity Clear 01/18/2025 5:48 PM EDT [facility] Specific [place] 1.014 1.003 - 1.030 01/18/2025 5:48 PM EDT [facility] pH 6.0 5.0 - 8.0 01/18/2025 5:48 PM EDT [facility] Leukocyte Esterase Negative Negative 01/18/2025 5:48 PM EDT [facility] Nitrite Negative Negative 01/18/2025 5:48 PM EDT [facility] Protein Negative Negative 01/18/2025 5:48 PM EDT [facility] Glucose 0 0 - 99 mg/dL 01/18/2025 5:48 PM EDT [facility] Ketones Negative Negative 01/18/2025 5:48 PM EDT [facility] Blood Negative Negative 01/18/2025 5:48 PM EDT [facility] Bilirubin Negative Negative 01/18/2025 5:48 PM EDT [facility] WBC 0 0 - 4 per hpf 01/18/2025 5:48 PM EDT [facility] RBC 1 0 - 4 per hpf 01/18/2025 5:48 PM EDT [facility] Urine Urine specimen obtained by clean catch procedure / Unknown 01/18/2025 4:43 PM EDT 01/18/2025 5:31 PM EDT Vinicio Bedolla MD URINE ORDERABLES Final Result Performing Organization Address City/[facility]/ZIP Co de Phone Number [address] [address], [place] [address] [place] [address] * ECHOCARDIOGRAM COMPREHENSIVE WITH CONTRAST (01/18/2025 4:39 [...] LVOT mn grad 1.9 mmHg LVOT peak thelma mean 0.9 m/s LVOT peak thelma 0.9 m/s LVOT VTI MEAN 19.3 cm LVOT VTI 19.3 cm RVID d Mean 3.4 cm RVID d 3.4 cm LA volume Mean 108.4 mL LA volume 108.4 mL RA area Mean 13.3 cm2 RA area 13.3 cm2 RA 2D Volume 33.3 mL AV mean gradient mean 9.5 mmHg AV mean gradient 9.5 mmHg Ao peak thelma mean 2.0 m/s Ao peak thelma 2.0 m/s Ao VTI Mean 42.5 cm [...] 2.1 cm Tapse 2.1 cm TR Peak Thelma Mean 3.1 m/s TR Peak Thelma 3.3 m/s Ascending aorta mean 2.5 cm [...] CV ECHO ORDERABLES Final Resu lt * ECG 12 lead (01/18/2025 3:53 PM EDT) Systolic BP 119 mmHg EKG [facility] Diastolic BP 58 mmHg EKG [facility] Ventricular rate 67 BPM EKG [facility] Atrial rate 67 BPM EKG [facility] P-R interval 126 ms EKG [facility] QRS duration 76 ms EKG [facility] Q-T interval 450 ms EKG [facility] QTC calculation (Bazett) 475 ms EKG [facility] P axis 14 degrees EKG [facility] R axis 49 degrees EKG [facility] T axis 38 degrees EKG [facility] 01/18/2025 3:53 PM EDT Narrative EKG [facility] - 01/18/2025 3:54 PM EDT Normal sinus rhythm with sinus arrhythmia Normal ECG When compared with ECG of 18-Jan-2025 10:10, (unconfirmed) No significant change was found Confirmed by MD Velazco Usama ([id number]) on 01/18/2025 3:54:13 PM Procedure Note Bobby Velazco MD - 01/19/2025 Normal sinus rhythm with sinus arrhythmia Normal ECG When compared with ECG of 18-Jan-2025 10:10, (unconfirmed) No significant change was found Confirmed by MD Velazco Usama ([id number]) on 01/18/2025 3:54:13 PM us Bobby Schneider MD ECG ORDERABLES Final Result [id number] * POCT Glucose, Fingerstick (01/18/2025 3:44 PM EDT) POC Glucose 96 65 - 99 mg/dL 01/18/2025 3:48 PM EDT Blood specimen / Unknown 01/18/2025 3:44 PM EDT 01/18/2025 3:48 PM EDT us Monica Agrawal MD POINT OF CARE TEST [facility] Final Result [facility]OSPITAL [facility] See Below * Heparin Assay (Anti-Xa) (01/18/2025 1:38 PM EDT) [facility] Anti Xa 0.69 IU/mL 01/18/2025 2:02 PM EDT [facility] Comment: (NOTE) Heparin Thromboembolic/Standard/Full Dose Protocol: [...] - 1.00 IU/mL Anticoagulant IV HEPARIN, UNFRACTIONATED 01/18/2025 1:13 PM EDT [facility] Blood Blood specimen / Unknown 01/18/2025 1:38 PM EDT 01/18/2025 1:42 PM EDT Monica Agrawal MD LAB BLOOD ORDERABLES Fi nal Result Performing Organization Address [facility] Co de Phone Number [address] [address], [address] [address] * (ABNORMAL) High Sensitivity Troponin T (01/18/2025 12:33 PM EDT) High Sensitivity Troponin T 542(HH) <15 ng/L 01/18/2025 1:36 PM EDT [facility] Comment:Recurring Critical R esult. Previously phoned. Delta (Change) 105(H) <3 01/18/2025 1:36 PM EDT [facility] Comment:Decreased 01/18/2025 12:3 3 PM EDT 01/18/2025 1:03 PM EDT Deena Guajardo MD LAB BLOOD ORDERABL ES Final Result Performing Organization Address [facility]/State/ZIP Co de Phone Number [address] [address], [address] [address] * (ABNORMAL) Lactic Acid, Q2h X 2 (01/18/2025 12:33 PM EDT) Lactic Acid 2.7(H) 0.5 - 1.9 mmol/L 01/18/2025 1:36 PM EDT [facility] Blood Blood specimen / Unknown 01/18/2025 12:33 PM EDT 01/18/2025 1:03 PM EDT us Deena Guajardo MD LAB BLOOD ORDERABL ES Final Result [address] [address], [address] [address] * (ABNORMAL) Partial Thromboplastin Time (PTT) (01/18/2025 10:39 AM EDT) Anticoagulant IV HEPARIN, UNFRACTIONATED 01/18/2025 10:11 AM EDT [facility] Partial Thromboplastin Time (PTT) 67(H) 25 - 36 seconds 01/18/2025 11:39 AM T [facility] Blood Blood specimen / Unknown 01/18/2025 10:39 AM EDT 01/18/2025 11:17 AM EDT us Deena Guajardo MD LAB BLOOD ORDERABL ES Final Result Performing Organization Address City/[facility]/ZIP Co de Phone Number [address] [address], [place] [address] * Protime-INR (01/18/2025 10:39 AM EDT) Anticoagulant IV HEPARIN, UNFRACTIONATED 01/18/2025 10:11 AM EDT [facility] Prothrombin Time (PT) 12.5 10.0 - 13.5 seconds 01/18/2025 11:39 AM EDT [facility] INR 1.1 01/18/2025 11:39 AM EDT [facility] Comment:INR Therapeutic Rang es: Standard dose anticoagulant 2.0 to 3.0, High dose anticoagulant 2.5-3.5. Blood Blood specimen / Unknown 01/18/2025 10:39 AM EDT 01/18/2025 11:17 AM EDT us Deena Guajardo MD LAB BLOOD ORDERABL ES Final Result Performing Organization Address [facility]/ZIP Co de Phone Number [address] [address], [address] [address] * (ABNORMAL) Troponin T, High Sensitivity - STAT and in 1 hour (01/18/2025 10:39 AM EDT) High Sensitivity Troponin T 647(HH) <15 ng/L 01/18/2025 12:09 PM EDT [facility] Delta (Change) NO PREVIOUS RESULT <3 01/18/2025 12:09 PM EDT [facility] Blood Blood specimen / Unknown 01/18/2025 10:39 AM EDT 01/18/2025 11:17 AM EDT Deena Guajardo MD LAB BLOOD ORDERABL ES Final Result Performing Organization Address [facility] Co de Phone Number [address] [address], [address] [address] * (ABNORMAL) Magnesium (01/18/2025 10:39 AM EDT) Pathologist [facility] Magnesium 1.5(L) 1.6 - 2.7 mg/dL 01/18/2025 12:09 PM EDT [facility] Blood Blood specimen / Unknown 01/18/2025 10:39 AM EDT 01/18/2025 11:17 AM EDT Deena Guajardo MD LAB BLOOD ORDERABL ES Final Result Performing Organization Address [facility] Co de Phone Number [address] [address], [address] [address] * (ABNORMAL) Comprehensive Metabolic Panel (01/18/2025 10:39 AM EDT) Glucose 112(H) 65 - 99 mg/dL 01/18/2025 12:09 PM EDT [facility] Comment:Fasting: <100 mg/dL, Non-Fasting: <200 mg/dL (ADA 2005) Blood Urea Nitrogen (BUN) 25(H) 8 - 21 mg/dL 01/18/2025 12:09 PM [facility] Creatinine 0.9 0.4 - 1.1 mg/dL 01/18/2025 12:09 PM [facility] eGFR 69 >59 01/18/2025 12:09 PM [facility] Comment:CKD-EPI (2020) in mL /min/1.73 sq meters. Sodium 141 136 - 145 mmol/L 01/18/2025 12:09 PM [facility] Potassium 3.8 3.4 - 5.3 mmol/L 01/18/2025 12:09 PM [facility] Chloride 106 98 - 107 mmol/L 01/18/2025 12:09 PM [facility] CO2 19(L) 22 - 33 mmol/L 01/18/2025 12:09 PM [facility] Calcium 8.8 8.7 - 10.5 mg/dL 01/18/2025 12:09 PM [facility] Alkaline Phosphatase 110 32 - 122 U/L 01/18/2025 12:09 PM [facility] Aspartate Aminotrans (AST) 46 10 - 50 U/L 01/18/2025 12:09 PM [facility] Alanine Aminotrans (ALT) 21 10 - 50 U/L 01/18/2025 12:09 PM [facility] Bilirubin, Total 0.5 0.2 - 1.0 mg/dL 01/18/2025 12:09 PM [facility] Protein, Total 6.6 6.3 - 8.3 g/dL 01/18/2025 12:09 PM [facility] Albumin 3.5 3.4 - 4.8 g/dL 01/18/2025 12:09 PM [facility] BUN/Creatinine Ratio 28(H) 10.0 - 25.0 Ratio 01/18/2025 12:09 PM [facility] Globulin 3.1 1.5 - 3.9 g/dL 01/18/2025 12:09 PM [facility] Albumin/Globulin Ratio 1.1 1.0 - 3.0 Ratio 01/18/2025 12:09 PM [facility] Anion Gap 16 7 - 17 01/18/2025 12:09 PM [facility] Blood Blood specimen / Unknown 01/18/2025 10:39 AM EDT 01/18/2025 11:17 AM EDT Deena Guajardo MD LAB BLOOD ORDERABL ES Final Result [address] [address], [address] [address] * (ABNORMAL) Complete Blood Count, with Differential (01/18/2025 10:39 AM EDT) White Blood Cell Count 20.1(H) 4.0 - 11.0 Thou/uL 01/18/2025 11:26 AM [facility] Platelet Count 219 150 - 450 Thou/uL 01/18/2025 11:26 AM [facility] Hemoglobin 11.1(L) 11.7 - 15.7 g/dL 01/18/2025 11:26 AM [facility] Hematocrit 37.2 35.0 - 47.0 % 01/18/2025 11:26 AM [facility] Red Blood Cell Count 3.64(L) 4.00 - 5.40 Mil/uL 01/18/2025 11:26 AM [facility] MCV 102(H) 80 - 100 fL 01/18/2025 11:26 AM [facility] MCH 30.5 27.0 - 31.0 pg 01/18/2025 11:26 AM [facility] MCHC 29.8(L) 30.0 - 36.0 g/dL 01/18/2025 11:26 AM [facility] RDW 15.0(H) 11.5 - 14.5 % 01/18/2025 11:26 AM [facility] MPV 10.1 7.5 - 12.5 fL 01/18/2025 11:26 AM [facility] Neutrophils Auto 90.1 % 01/19/20 11:26 AM [facility] Immature Granulocytes 0.6 % 01/18/2025 11:26 AM [facility] Lymphocytes Auto 3.8 % 01/19/20 11:26 AM [facility] Monocytes Auto 5.2 % 01/18/2025 11:26 AM [facility] Eosinophils Auto 0.0 % 01/19/20 11:26 AM [facility] Basophils Auto 0.3 % 01/18/2025 11:26 AM [facility] Abs Neutrophils Auto 18.10(H) 2.00 - 7.50 Thou/uL 01/18/2025 11:26 AM [facility] Abs Immature Granulocytes 0.12(H) 0.00 - 0.10 Thou/uL 01/18/2025 11:26 AM [facility] Abs Lymphocytes Auto 0.77(L) 1.50 - 4.50 Thou/uL 01/18/2025 11:26 AM [facility] Abs Monocytes Auto 1.05 0.20 - 1.50 Thou/uL 01/18/2025 11:26 AM [facility] Abs Eosinophils Auto 0.00 0.00 - 0.70 Thou/uL 01/18/2025 11:26 AM [facility] Abs Basophils Auto 0.07 0.00 - 0.20 Thou/uL 01/18/2025 11:26 AM [facility] Blood Blood specimen / Unknown 01/18/2025 10:39 AM EDT 01/18/2025 11:17 AM EDT Deena Guajardo MD LAB BLOOD ORDERABL ES Final Result [address] [address], [address] [address] * Blood Culture (01/18/2025 10:39 AM EDT) Culture Sterile after 5 days 01/23/2025 7:10 AM [facility] Blood Blood specimen / Unknown 01/18/2025 10:39 AM EDT 01/18/2025 11:07 AM EDT Comment:Blood us Deena Guajardo MD LAB BLOOD ORDERABL ES Final Result Performing Organization Address City/[facility]/ZIP Co de Phone Number [facility] [address] [place] [address], * (ABNORMAL) Lactic Acid, Q2h X 2 (01/18/2025 10:39 AM EDT) Lactic Acid 4.4(HH) 0.5 - 1.9 mmol/L 01/18/2025 11:44 AM EDT [facility] Blood Blood specimen / Unknown 01/18/2025 10:39 AM EDT 01/18/2025 11:18 AM EDT Deena Guajardo MD LAB BLOOD ORDERABL ES Final Result Performing Organization Address [facility] Co de Phone Number [facility] [address] [place] [address], [place] [facility] [address] [place] [address] * 10 Min ECG 12 lead (01/18/2025 10:10 AM EDT) Ventricular rate 69 BPM EKG [facility] Atrial rate 69 BPM EKG [facility] P-R interval 132 ms EKG [facility] QRS duration 76 ms EKG [facility] Q-T interval 432 ms EKG [facility] QTC calculation (Bazett) 463 ms EKG [facility] P axis 1 degrees EKG [facility] R axis 12 degrees EKG [facility] T axis 34 degrees EKG [facility] 01/18/2025 10:1 0 AM EDT Narrative EKG [facility] - 01/18/2025 4:00 PM EDT Normal sinus rhythm Normal ECG No previous ECGs available Confirmed by MD Velazco Usama ([id number]) on 01/18/2025 4:00:16 PM Procedure Note Bobby Velazco MD - 01/18/2025 Normal sinus rhythm Normal ECG No previous ECGs available Confirmed by MD Juan A, [facility] ([id number]) on 01/18/2025 4:00:16 PM us Josemanuel Ortega MD ECG ORDERABLES Final Result EKG [facility] documented in this encounter Visit Diagnoses Diagnosis Cardiogenic shock (HCC)- Primary Cardiogenic shock NSTEMI (non-ST elevated myocardial infarction) (HCC) Acute myocardial infarction, subendocardial infarction, episode of care unspecified Pneumonia Pneumonia, organism unspecified Acute decompensated heart failure (HCC) Atrial fibrillation (HCC) Atrial fibrillation Cardiogenic shock (HCC) Cardiogenic shock Pulmonary edema Pulmonary congestion and hypostasis Type 1 non-ST elevation myocardial infarction (NSTEMI) (HCC) Atrial fibrillation with RVR (HCC) Systolic murmur Undiagnosed cardiac murmurs Metabolic acidosis Acidosis Lactic acidosis Acidosis GERD (gastroesophageal reflux disease) Esophageal reflux Iron deficiency anemia Unspecified iron deficiency anemia Leukocytosis Leukocytosis, unspecified Bacteremia due to Gram-positive bacteria Diarrhea documented in this encounter Admitting Diagnoses Diagnosis Cardiogenic shock (HCC) Cardiogenic shock documented in this encounter Administered Medications Inactive Administered Medications - up to 1 most recent administrations Medication Order MAR Action Action Date Dose Rate Site lactated ringers (LR) infusion 50 mL/hr, Intravenous, Continuous, Starting on Sat01/23/25 at 1000, For 15 hours New Bag 01/23/2025 10:06 AM EDT 50 mL/hr 50 mL/hr sodium chloride 0.9% (NS) infusion 100 mL/hr, Intravenous, Continuous, Starting on Sat01/20/25 at 1600, For 2 hours Restarted 01/20/2025 3:50 PM EDT 100 mL/hr 100 mL/hr acetaminophen (TYLENOL) tablet 650 mg 650 mg, Oral, Every 6 hours PRN, mild pain 1-3, Starting on Sat01/19/25 at 0234 Given 01/19/2025 8:31 PM EDT 650 mg acetaminophen (TYLENOL) tablet 975 mg 975 mg, Oral, Once, On 01/18/25 at 1406, For 1 dose Given 01/18/2025 2:31 PM EDT 975 mg allopurinol (ZYLOPRIM) tablet 200 mg 200 mg, Oral, Daily, First dose on Sat01/19/25 at 0900, Administer after meals with plenty of fluid. Given 01/23/2025 9:28 AM EDT 200 mg apixaban (ELIQUIS) tablet 5 mg 5 mg, Oral, Every 12 hours scheduled, First dose on Sat01/21/25 at 0900, Tablets may be crushed and suspended in 60 mL of water, D5W, or apple juice or mixed with applesauce; administer immediately. For delivery through a nasogastric tube, crushed tablets may be suspended in 60 mL of water or D5W followed by immediate delivery., Indication for Anticoagulation: Atrial Fibrillation Given 01/23/2025 9:28 AM EDT 5 mg aspirin chewable tablet 81 mg 81 mg, Oral, Daily, First dose on Sat01/19/25 at 0900 Given 01/20/2025 7:56 AM EDT 81 mg atorvastatin (LIPITOR) tablet 80 mg 80 mg, Oral, Every morning, First dose (after last modification) on Sat01/18/25 at 1830 Given 01/23/2025 9:28 AM EDT 80 mg azithromycin (ZITHROMAX) 500 mg in sodium chloride (NS) 0.9 % 250 mL IVPB-WTD 500 mg, Intravenous, Administer over 90 Minutes, Every 24 hours, First dose on Sat01/19/25 at 0700, For 2 doses, All antimicrobials used at [facility] require an indication. Please complete the following documentation. Bacterial Infection Suspected, Type of Therapy: New Therapy, Indication: Pneumonia New Bag 01/19/2025 8:39 AM EDT 500 mg 166.7 mL/hr cefepime (MAXIPIME) 2 g in sodium chloride-MBP (NS) 100 mL IVPB-MBP 2 g, Intravenous, Administer over 3 Hours, Every 8 hours, First dose on Sat01/18/25 at 1500, All antimicrobials used at [facility] require an indication. Please complete the following documentation. Bacterial Infection Suspected, Type of Therapy: New Therapy, Indication: Sepsis New Bag 01/19/2025 4:29 AM EDT 2 g 33.3 mL/hr cefTRIAXone (ROCEPHIN) 1 g in sodium chloride-MBP (NS) 100 mL IVPB-MBP 1 g, Intravenous, at 200 mL/hr, Every 24 hours, First dose on Sat01/19/25 at 1230, For 2 doses, All antimicrobials used at [facility] require an indication. Please complete the following documentation. Bacterial Infection Suspected, Type of Therapy: New Therapy, Indication: Pneumonia New Bag 01/19/2025 11:43 AM EDT 1 g 200 mL/hr cefTRIAXone (ROCEPHIN) 1 g in sodium chloride-MBP (NS) 100 mL IVPB-MBP 1 g, Intravenous, at 200 mL/hr, Once, On Sat01/19/25 at 1230, For 1 dose, For a total of 2g ceftraixone today 01/19, All antimicrobials used at [facility] require an indication. Please complete the following documentation. Bacterial Infection Suspected, Type of Therapy: New Therapy, Indication: Bacteremia New 01/19/2025 12:53 PM EDT 1 g 200 mL/hr cefTRIAXone (ROCEPHIN) 2 g in sodium chloride-MBP (NS) 100 mL IVPB-MBP 2 g, Intravenous, at 200 mL/hr, Every 24 hours, First dose (after last modification) on Sat01/20/25 at 1100, All antimicrobials used at [facility] require an indication. Please complete the following documentation. Bacterial Infection Documented, Type of Therapy: New Therapy, Indication: Bacteremia New 01/23/2025 9:27 AM EDT 2 g 200 mL/hr empagliflozin (JARDIANCE) tablet 10 mg 10 mg, Oral, Daily, First dose on Fiorella 01/21/25 at 1000, On hold since 01/23/2025 at 0842 until manually unheld Given 01/22/2025 8:46 AM EDT 10 mg furosemide (LASIX) injection 20 mg 20 mg, Intravenous, Once, On Sat01/18/25 at 1302, For 1 dose, Hold for SBP less than 100 mmHg. Notify provider if a dose is held. If ordered IV Push: administer undiluted over 2 minutes. Given 01/18/2025 1:04 PM EDT 20 mg furosemide (LASIX) injection 20 mg 20 mg, Intravenous, Once, On Sat01/18/25 at 1519, For 1 dose, Hold for SBP less than 100 mmHg. Notify provider if a dose is held. If ordered IV Push: administer undiluted over 2 minutes. Given 01/18/2025 5:36 PM EDT 20 mg furosemide (LASIX) injection 40 mg 40 mg, Intravenous, 2 times daily, First dose on 01/19/25 at 1100, Hold for SBP less than 100 mmHg. Notify provider if a dose is held. If ordered IV Push: administer undiluted over 2 minutes. Given 01/20/2025 5:51 PM EDT 40 mg furosemide (LASIX) injection 80 mg 80 mg, Intravenous, 2 times daily, First dose (after last modification) on Fiorella 01/21/25 at 0900, Hold for SBP less than 100 mmHg. Notify provider if a dose is held. If ordered IV Push: administer undiluted over 2 minutes. Given 01/22/2025 9:48 AM EDT 80 mg furosemide (LASIX) injection 80 mg 80 mg, Intravenous, Daily, First dose (after last modification) on 01/23/25 at 0900, Hold for SBP less than 100 mmHg. Notify provider if a dose is held. If ordered IV Push: administer undiluted over 2 minutes., On hold since 01/23/2025 at 0842 until manually unheld heparin (porcine) IV infusion 25,000 units in 500 mL 0.45% NaCl (premix) 18.72 mL/hr (12 Units/kg/hr ? 78 kg), Intravenous, Continuous, Starting on 01/18/25 at 1226, HEPARIN CARDIAC/LOW DOSE PROTOCOL: Initial Infusion Dose: See dose above, MAX initial dose 1,000 units/hr (83 kg and above) Dose adjustment instructions: - Obtain a Heparin Anti-factor Xa (Anti-Xa) level 6 hours after start of infusion and 6 hours after every dose change. - Once patient is within therapeutic range for two consecutive Anti-Xa measurements, then obtain Anti-Xa daily with AM labs until infusion is discontinued. When heparin infusion is interrupted: - For less than or equal to 90 minutes: ?~ Restart heparin infusion at the most recent dose and draw Anti-Xa level in 6 hours from restart. ?~ No bolus required. Adjust per protocol. - For greater than 90 minutes or if heparin interruption for unknown time period: ?~ Draw stat Anti-Xa level (Do not adjust infusion dose based on this Anti-Xa result). ~ Restart heparin infusion at most recent dose (most recent dose may be anytime during the patient's current admission). ~ Notify licensed practioner regarding interruption and discuss if IV bolus is necessary; licensed practioner to consider ordering IV bolus if greater than 6 hours heparin interruption. ?? ~ Draw Anti-Xa in 6 hours and proceed per protocol. - Document all pertinent communications with providers in the patient's record. - Adjust infusion based on Anti-Xa result per Cardiac/Low Dose protocol table: Concentration = 50 units/mL, Indication for Anticoagulation: Atrial Fibrillation New Bag 01/20/2025 1:41 PM EDT 14 Units/kg/hr 21.84 mL/hr losartan (COZAAR) tablet 25 mg 25 mg, Oral, Daily, First dose on Fiorella 01/21/25 at 1000, Hold for SBP less than 100 mmHg. Notify provider if a dose is held., On hold since 01/23/2025 at 0842 until manually unheld Given 01/22/2025 8:46 AM EDT 25 mg magnesium sulfate IVPB 1 g in 100 mL D5W (premix) 1 g, Intravenous, Administer over 30 Minutes, Once, On Sat01/20/25 at 1000, For 1 dose New 01/20/2025 10:08 AM EDT 1 g 200 mL/hr magnesium sulfate IVPB 2 g in 50 mL SW PREMIX 2 g, Intravenous, Administer over 60 Minutes, Once, On Sat01/18/25 at 1406, For 1 dose New 01/18/2025 2:31 PM EDT 2 g 50 mL/hr magnesium sulfate IVPB 2 g in 50 mL SW PREMIX 2 g, Intravenous, Administer over 60 Minutes, Once, On Sat01/19/25 at 0130, For 1 dose New 01/19/2025 1:24 AM EDT 2 g 50 mL/hr magnesium sulfate IVPB 2 g in 50 mL SW PREMIX 2 g, Intravenous, Administer over 60 Minutes, Once, On Fiorella 01/21/25 at 1000, For 1 dose New Bag 01/21/2025 11:44 AM EDT 2 g 50 mL/hr metoPROLOL SUCCINATE (TOPROL-XL) 24 hr tablet 50 mg 50 mg, Oral, Daily, First dose on Sat01/20/25 at 0900, Hold for HR less than 45 bpm and/or SBP less than 90 mmHg. Notify provider if a dose is held. *DO NOT CHEW OR CRUSH*, On hold since 01/23/2025 at 0842 until manually unheld Given 01/22/2025 8:46 AM EDT 50 mg metoPROLOL TARTRATE (LOPRESSOR) 5 mg/5 mL injection - ADS Override Pull Starting on Sat01/19/25 at 0736, For 1 dose, Heather Yu: cabinet override Infuse undiluted at 1 mg/minute. metoPROLOL TARTRATE (LOPRESSOR) injection 5 mg 5 mg, Intravenous, Once, On Sat01/19/25 at 0800, For 1 dose, Hold for HR less than 45 bpm and/or SBP less than 90 mmHg. Notify provider if a dose is held. Infuse undiluted at 1 mg/minute. Given 01/19/2025 7:45 AM EDT 5 mg metoPROLOL TARTRATE (LOPRESSOR) injection 5 mg 5 mg, Intravenous, Once, On Sat01/19/25 at 0830, For 1 dose, Hold for HR less than 45 bpm and/or SBP less than 90 mmHg. Notify provider if a dose is held. Infuse undiluted at 1 mg/minute. Given 01/19/2025 8:35 AM EDT 5 mg metoPROLOL TARTRATE (LOPRESSOR) tablet 25 mg 25 mg, Oral, Every 12 hours scheduled, First dose on Sat01/19/25 at 0900, Hold for HR less than 45 bpm and/or SBP less than 90 mmHg. Notify provider if a dose is held. Given 01/19/2025 8:31 PM EDT 25 mg PANTOprazole (PROTONIX) EC tablet 40 mg 40 mg, Oral, Every morning, First dose on Sat01/19/25 at 0700, *DO NOT CHEW OR CRUSH* Given 01/23/2025 9:28 AM EDT 40 mg perflutren lipid microsphere (DEFINITY) 1.3 mL in sodium chloride (NS) 0.9 % 10 mL 0.5-8 mL, Intravenous, Once in imaging, other, Starting on 01/18/25 at 1639, For 1 dose, Document total dose administered per policy Given 01/18/2025 4:39 PM EDT 3 mL potassium chloride (KLOR-CON M20) CR tablet 40 mEq 40 mEq, Oral, Every 4 hours scheduled, First dose on Sat01/19/25 at 0130, For 2 doses, Swallow tablets whole; do not crush, chew, or suck on tablet. Take with meals and a full glass of water or other liquid to minimize the risk of GI irritation. Given 01/19/2025 4:29 AM EDT 40 mEq potassium chloride (KLOR-CON M20) CR tablet 40 mEq 40 mEq, Oral, Once, On Sat01/20/25 at 1000, For 1 dose, Swallow tablets whole; do not crush, chew, or suck on tablet. Take with meals and a full glass of water or other liquid to minimize the risk of GI irritation. Swallow tablets whole; do not crush, chew, or suck on tablet. Take with meals and a full glass of water or other liquid to minimize the risk of GI irritation. Given 01/20/2025 10:08 AM EDT 40 mEq potassium chloride (KLOR-CON M20) CR tablet 40 mEq 40 mEq, Oral, Once, On Sat01/21/25 at 1000, For 1 dose, Swallow tablets whole; do not crush, chew, or suck on tablet. Take with meals and a full glass of water or other liquid to minimize the risk of GI irritation. Swallow tablets whole; do not crush, chew, or suck on tablet. Take with meals and a full glass of water or other liquid to minimize the risk of GI irritation. Given 01/21/2025 10:44 AM EDT 40 mEq potassium chloride (KLOR-CON) packet 40 mEq 40 mEq, Oral, Once, On 01/23/25 at 1130, For 1 dose, Dissolve contents of 1 packet in 4 ounces of water. Given 01/23/2025 11:38 AM EDT 40 mEq senna-docusate (SENNA-S) 8.6-50 MG tablet 2 tablet 2 tablet, Oral, Nightly, First dose on Sat01/18/25 at 2100, Hold for diarrhea, On hold since Sat01/19/2025 at 1431 until manually unheld Given 01/18/2025 9:08 PM EDT 2 tablets spironolactone (ALDACTONE) tablet 25 mg 25 mg, Oral, Daily with breakfast, First dose on Sat01/22/25 at 1000, Administer with food to decrease gastrointestinal irritation and to increase absorption. Hold for SBP less than 100 mmHg. Notify provider if a dose is held. Hazardous Level Medium A See Hazardous Medication Policy & Procedures for more information., On hold since 01/23/2025 at 0842 until manually unheld vancomycin (VANCOCIN) IVPB 1750 mg in 500 mL NS (premix) 1,750 mg, Intravenous, Administer over 120 Minutes, Once, On Sat01/18/25 at 1438, For 1 dose, All antimicrobials used at [facility] require an indication. Please complete the following documentation. Bacterial Infection Suspected, Type of Therapy: New Therapy, Indication: Sepsis New Bag 01/18/2025 3:11 PM EDT 1,750 mg 267.5 mL/hr documented in this encounter Active and Recently Administered Medications Times are shown in EDT. Scheduled Medication Order 01/21/2025 01/22/2025 01/23/2025 allopurinol (ZYLOPRIM) tablet 200 mg 200 mg, Oral, Daily, First dose on Sat01/19/25 at 0900, Administer after meals with plenty of fluid. 0830 (Given - Provider: Clarence Arevalo RN) 0846 (Given - Provider: Marisa Robison, GERI) 09 (Given - Provider: Marisa Robison, GERI) apixaban (ELIQUIS) tablet 5 mg 5 mg, Oral, Every 12 hours scheduled, First dose on Fiorella 01/21/25 at 0900, Tablets may be crushed and suspended in 60 mL of water, D5W, or apple juice or mixed with applesauce; administer immediately. For delivery through a nasogastric tube, crushed tablets may be suspended in 60 mL of water or D5W followed by immediate delivery., Indication for Anticoagulation: Atrial Fibrillation 08 (Given - Provider: Clarence Arevalo RN)2114 (Given - Provider: Sindy Claros RN) 0846 (Given - Provider: Marisa Robison RN)2115 (Given - Provider: Vicki Mccollum RN) 0928 (Given - Provider: Marisa Robison, GERI) atorvastatin (LIPITOR) tablet 80 mg 80 mg, Oral, Every morning, First dose (after last modification) on Sat01/18/25 at 1830 0830 (Given - Provider: Clarence Arevalo RN) 0510 (Given - Provider: Sindy Claros RN) 0928 (Given - Provider: Marisa Robison, RN) cefTRIAXone (ROCEPHIN) 2 g in sodium chloride-MBP (NS) 100 mL IVPB-MBP (CANCELED) 2 g, Intravenous, at 200 mL/hr, Every 24 hours, First dose (after last modification) on Sat01/20/25 at 1100, All antimicrobials used at [facility] require an indication. Please complete the following documentation. Bacterial Infection Documented, Type of Therapy: New Therapy, Indication: Bacteremia 1044 (New Bag - Provider: Clarence Arevalo RN)1140 (Stopped - Provider: Clarence Arevalo RN) 1114 (New Bag - Provider: Marisa Robison, RN)1152 (Stopped - Provider: Marisa Robison, RN) 0927 (New Bag - Provider: Marisa Robison, RN)1013 (Stopped - Provider: Marisa Robison, RN) empagliflozin (JARDIANCE) tablet 10 mg 10 mg, Oral, Daily, First dose on Fiorella 01/21/25 at 1000, On hold since 01/23/2025 at 0842 until manually unheld 1041 (Given - Provider: Clarence Arevalo RN) 0846 (Given - Provider: Marisa Robison, GERI) 0842 (Provider Held - Provider: Dante Ferrara MD - Reason: Change in lab value)0900 (Dose Auto Held - Provider: Dante Ferrara MD)1913 (Provider Unheld - Provider: Automatic Discharge Provider) furosemide (LASIX) injection 80 mg (CANCELED) 80 mg, Intravenous, 2 times daily, First dose (after last modification) on Fi[place] 01/21/25 at 0900, Hold for SBP less than 100 mmHg. Notify provider if a dose is held. If ordered IV Push: administer undiluted over 2 minutes. 0828 (Given - Provider: Clarence Arevalo RN)1723 (Given - Provider: Mickie Amezquita RN) 0948 (Given - Provider: Marisa Robison, GERI) furosemide (LASIX) injection 80 mg 80 mg, Intravenous, Daily, First dose (after last modification) on 01/23/25 at 0900, Hold for SBP less than 100 mmHg. Notify provider if a dose is held. If ordered IV Push: administer undiluted over 2 minutes., On hold since 01/23/2025 at 0842 until manually unheld 0842 (Provider Held - Provider: Dante Ferrara MD - Reason: Change in lab value)0900 (Dose Auto Held - Provider: Dante Ferrara MD)1913 (Provider Unheld - Provider: Automatic Discharge Provider) losartan (COZAAR) tablet 25 mg 25 mg, Oral, Daily, First dose on Fi[place] 01/21/25 at 1000, Hold for SBP less than 100 mmHg. Notify provider if a dose is held., On hold since 01/23/2025 at 0842 until manually unheld 1041 (Given - Provider: Clarence Arevalo RN) 0846 (Given - Provider: Marisa Robison, RN) 0842 (Provider Held - Provider: Dante Ferrara MD - Reason: Change in lab value)0900 (Dose Auto Held - Provider: Dante Ferrara MD)191 (Provider Unheld - Provider: Automatic Discharge Provider) magnesium sulfate IVPB 2 g in 50 mL SW PREMIX (COMPLETED) 2 g, Intravenous, Administer over 60 Minutes, Once, On Fi[place] 01/21/25 at 1000, For 1 dose 1144 (New Bag - Provider: Clarence Arevalo, RN)1408 (Stopped - Provider: Clarence Arevalo, RN) metoPROLOL SUCCINATE (TOPROL-XL) 24 hr tablet 50 mg 50 mg, Oral, Daily, First dose on Sat01/20/25 at 0900, Hold for HR less than 45 bpm and/or SBP less than 90 mmHg. Notify provider if a dose is held. *DO NOT CHEW OR CRUSH*, On hold since 01/23/2025 at 0842 until manually unheld 0829 (Given - Provider: Clarence Arevalo RN) 0846 (Given - Provider: Marisa Robison, RN) 0842 (Provider Held - Provider: Dante Ferrara MD - Reason: Change in lab value)0900 (Dose Auto Held - Provider: Dante Ferrara MD)191 (Provider Unheld - Provider: Automatic Discharge Provider) PANTOprazole (PROTONIX) EC tablet 40 mg 40 mg, Oral, Every morning, First dose on Sat01/19/25 at 0700, *DO NOT CHEW OR CRUSH* 0829 (Given - Provider: Clarence Arevalo RN) 0510 (Given - Provider: Sindy Claros RN) 0928 (Given - Provider: Marisa Robison RN) potassium chloride (KLOR-CON M20) CR tablet 40 mEq (COMPLETED) 40 mEq, Oral, Once, On Fi[place] 01/21/25 at 1000, For 1 dose, Swallow tablets whole; do not crush, chew, or suck on tablet. Take with meals and a full glass of water or other liquid to minimize the risk of GI irritation. Swallow tablets whole; do not crush, chew, or suck on tablet. Take with meals and a full glass of water or other liquid to minimize the risk of GI irritation. 1044 (Given - Provider: Clarence Arevalo RN) potassium chloride (KLOR-CON) packet 40 mEq (COMPLETED) 40 mEq, Oral, Once, On 01/23/25 at 1130, For 1 dose, Dissolve contents of 1 packet in 4 ounces of water. 1138 (Given - Provider: Marisa Robison RN) senna-docusate (SENNA-S) 8.6-50 MG tablet 2 tablet 2 tablet, Oral, Nightly, First dose on Sat01/18/25 at 2100, Hold for diarrhea, On hold since Sat01/19/2025 at 1431 until manually unheld 2100 (Dose Auto Held - Provider: Teresa Membreno PA-C) 2099 (Not Given - Provider: Vicki Mccollum RN - Reason: Change in order) 1913 (Provider Unheld - Provider: Automatic Discharge Provider) spironolactone (ALDACTONE) tablet 25 mg 25 mg, Oral, Daily with breakfast, First dose on Sat01/22/25 at 1000, Administer with food to decrease gastrointestinal irritation and to increase absorption. Hold for SBP less than 100 mmHg. Notify provider if a dose is held. Hazardous Level Medium A See Hazardous Medication Policy & Procedures for more information., On hold since Sat01/23/2025 at 0842 until manually unheld 1115 (Not Given - Provider: Marisa Robison RN - Reason: Dose held per order parameters) 0842 (Provider Held - Provider: Dante Ferrara MD - Reason: Change in lab value)0851 (Not Given - Provider: Marisa Robison RN - Reason: Change in order)1912 (Provider Unheld - Provider: Automatic Discharge Provider) Continuous Medication Order 01/21/2025 01/22/2025 01/23/2025 lactated ringers (LR) infusion 50 mL/hr, Intravenous, Continuous, Starting on 01/23/25 at 1000, For 15 hours 1006 (New Bag - Prov ider: Marisa Robison RN)1912 (Due: Stopped) PRN Medication Order 01/21/2025 01/22/2025 01/23/2025 acetaminophen (TYLENOL) tablet 650 mg 650 mg, Oral, Every 6 hours PRN, mild pain 1-3, Starting on 01/19/25 at 0234 bisacodyl (DULCOLAX) suppository 10 mg 10 mg, Rectal, Daily PRN, constipation, if no bowel movement by day 2, Starting on 01/18/25 at 1405 lactulose (ENULOSE) 10 gm/15 mL solution 20 g 20 g (30 mL), Oral, Every 4 hours PRN, constipation, if no bowel movment by day 3, Starting on Sat01/18/25 at 1405, Administer until bowel movement naloxone (NARCAN) 0.4 mg/mL injection 0.4 mg 0.4 mg, Intravenous, Every 5 min PRN, opioid reversal, respiratory depression, Starting on 01/18/25 at 1405, Notify provider if administered documented in this encounter Additional Health Concerns Infection Onset Date Last Indicated Resolved Time R/O Respiratory Disease 01/18/2025 01/18/202501/07 6:31 PM EDT documented as of this encounter Care Teams Novelty Maker Relationship Specialty Start Date End Date Kenisha Ozuna MD [address] [place] [address] [place] [id number] PCP - General Internal Medicine 01/19/25 documented as of this encounter
--- OUTSIDE RECORDS SUMMARY | 2025-01-26 12:06 | XMS_ITS | Encounter Summary ---
Author Organization [facility]ly [facility] Address [address] [place] [address] Care Team Providers Care [employer] Distribution Consultant Name Role Phone Kenisha Ozuna MD Primary Care Provider [phone] Encounter Details Date Type Department Care Team (Late st Contact Info) Description 01/25/2025 Orders Only [facility] Heart [facility] [place] [facility] [address] [facility] [address] [place] [address] Marlyn Luevano, MALA [address] [facility] [address] [place], [place] [id number] Social History Tobacco Use Types Packs/Day Years Used Date Smoking Tobacco: Never Smokeless Tobacco: Never Alcohol Use Standard Drinks/Week Comments Not Currently 0 (1 standard drink = 0.6 oz pur e alcohol) [facility] Utilities Answer Date Recorded In the past 12 months has [employer], gas, oil, or water [employer] threatened to shut off services in your [...] money to buy more. Never true 01/20/20 Within the past 12 months, t he [...] any time in the past 12 m [facility], were you homeless or living in a custodial (including now)? No 01/19/2025 Comments Unknown Sex and Gender Information Value Date Recorded Sex Assigned at Female 01/18/2025 10:27 AM EDT Legal Sex Female 9:33 AM EDT Gender Identity Female 01/18/2025 10:27 AM EDT Sexual Orientation Heterosexual (straight) 01/18 10:27 AM EDT documented as of this encounter Plan of Treatment Upcoming Encounters Date Type Department Care Team (Late st Contact Info) Description 01/29/2025 11:00 AM EDT Infusion [facility] [place] [facility] [address] [place] [id number] documented as of this encounter Visit Diagnoses Not on filedocumented in this encounter Care Teams [employer] Distribution Consultant Relationship Specialty Start Date End Date Kenisha Ozuna MD [address] [place] [phone] PCP - General Internal Medicine 01/19/25 documented as of this encounter
--- OUTSIDE RECORDS SUMMARY | 2025-01-26 12:06 | XMS_ITS | Encounter Summary ---
Author Organization [facility] Address [address] [place] [id number] Care Team Providers Care Skid Worker Name Role Phone Kenisha Ozuna MD Primary Care Provider [phone] Encounter Details Date Type Department Care Team (Late st Contact Info) Description 01/26/2025 Orders Only [address] [phone] Dante Ferrara MD [address] [address] Acute decompensated heart failure (HCC) Social History Tobacco Use Types Packs/Day Years Used Date Smoking Tobacco: Never Smokeless Tobacco: Never Alcohol Use Standard Drinks/Week Comments Not Currently 0 (1 standard drink = 0.6 oz pur e alcohol) [facility] Utilities Answer Date Recorded In the past 12 months has [employer], gas, oil, or water [employer] threatened to shut off services in your [...] any time in the past 12 m [facility], were you homeless or living in a group home (including now)? No 01/19/2025 Comments Unknown Sex [...] Info) Description 01/29/2025 11:00 AM EDT Infusion [facility] [place] [facility] [address] [place] [address] documented as of this encounter Visit Diagnoses Diagnosis Acute decompensated heart failure (HCC) documented in this encounter Care Teams Skid Worker Relationship Specialty Start Date End Date Kenisha Ozuna MD [address] [place] [address] [place] [phone] PCP - General Internal Medicine 01/19/25 documented as of this encounter
== END 2025-01-26 13:41 | disposition home or self-care (01) ==
LOC: HO.HMCHD 10:52
PROVIDERS: Visit Provider Physician Assistant
DX: I48.91 Unspecified atrial fibrillation (principal); A41.9 Sepsis, unspecified organism; R65.21 Severe sepsis with septic shock; L30.9 Dermatitis, unspecified; I10 Essential (primary) hypertension; R82.71 Bacteriuria

== ENCOUNTER → 2025-01-26 10:51 | Outpatient (BNVA) | payer MEDICARE, OTHER, SELFPAY | PROVIDERS: Visit Provider Physician Assistant | DX: Z13.89 Encounter for screening for other disorder (principal) ==

== ENCOUNTER 2025-01-26 11:50 | Outpatient (REF) | payer MEDICARE, OTHER, SELFPAY ==
--- OUTSIDE RECORDS SUMMARY | 2025-01-26 13:02 | XMS_ITS | Clinical Summary ---
Author Organization [facility] Address [address] [place] [address] Care Team Providers Care Rig Supervisor Name Role Phone Kenisha Ozuna MD Primary Care Provider [phone] Allergies Active Allergy Reactions Criticality Noted Date [...] subsegmental atelectasis. Minimal interstitial pulmonary edema. BNP 43227 Trop 647 -> 542 SBP 105 - Per interventional cardiology plan for RHC/LHC +/- PCI 01/20 and plan for n.p.o. at midnight - [id number] 2 - Continue heparin GTT - Aspirin [...] subsegmental atelectasis. Minimal interstitial pulmonary edema. BNP 75067 Trop 647 -> 542 SBP 105 - Per interventional cardiology plan for RHC/LHC +/- PCI 01/20 and plan for n.p.o. at midnight - [id number] 2 - Continue heparin GTT - Aspirin [...] subsegmental atelectasis. Minimal interstitial pulmonary edema. BNP 98732 Trop 647 -> 542 SBP 105 - Per interventional cardiology plan for RHC/LHC +/- PCI 01/20 and plan for n.p.o. at midnight - [id number] 2 - Continue heparin GTT - Aspirin [...] subsegmental atelectasis. Minimal interstitial pulmonary edema. BNP 87839 Trop 647 -> 542 SBP 105 - Per interventional cardiology plan for RHC/LHC +/- PCI 01/20 and plan for n.p.o. at midnight - [id number] 2 - Continue heparin GTT - Aspirin [...] subsegmental atelectasis. Minimal interstitial pulmonary edema. BNP 88925 Trop 647 -> 542 SBP 105 - Per interventional cardiology plan for RHC/LHC +/- PCI 01/20 and plan for n.p.o. at midnight - [id number] 2 - Continue heparin GTT - Aspirin 81 mg once daily - Lipitor 80 mg once daily - Lasix 40 mg IV twice daily - Lopressor 20 mg twice daily - Lipids in a.m. - Strict I's and O's, daily weights, telemetry - K>4 and Mg >2 Encounters Date Type Department Care Team Description 01/26/2025 Orders Only [facility] [address] [place] [address] Dante Ferrara MD Acute decompensated heart failure (HCC) 01/25/2025 Orders Only [facility] Heart & Vascular [place] - [facility] [address] [facility] [address] [place] [address] Marlyn Luevano, TRUSS DRIVER HELPER 01/20/2025 2:09 PM EDT - 01/20/2025 3:33 PM EDT Surgery [facility] [place] [facility] - Cardiac Catheterization Laboratory [address] [place] [address] Geovanni Howell MD CORONARY ANGIO W/LV+LT/RT CATH 01/18/2025 10:50 AM EDT Ancillary Procedure [facility] Radiology [address] [place] [address] Provider, File Room 01/18/2025 10:50 AM EDT Ancillary Procedure [facility] Radiology [address] [place] [address] Provider, File Room 01/18/2025 10:15 AM EDT Ancillary Procedure [facility] Emergency Department [address] [place] [id number] Deena Guajardo MD 01/18/2025 9:48 AM EDT - 01/23/2025 5:13 PM EDT Hospital Encounter [facility] [address] [place] [address] Monica Agrawal MD Schreyer, MD Molly Nance, MD Sissy Ross Mohamad, MD Shah, MD Saeed Altman, MD Jerry Contreras Bibek, MD Gupta, MD Dante Cardiogenic shock (HCC) (Primary Dx); NSTEMI (non-ST elevated myocardial infarction) (HCC); Pneumonia; Acute decompensated heart failure (HCC); Atrial fibrillation (HCC) Discharge Disposition: Home or Self Care 01/18/2025 Orders Only [facility] Radiology [address] [place] [address] Provider, File Room 01/18/2025 Travel from Last 3 Months Social History Tobacco Use Types Packs/Day Years Used Date Smoking Tobacco: Never Smokeless Tobacco: Never Tobacco Cessation:Counseling Given: Not Answered Alcohol Use Standard Drinks/Week Comments Not Currently 0 (1 standard drink = 0.6 oz pur e alcohol) [facility] Utilities Answer Date Recorded In the past 12 months has [employer], oil, or water company threatened to shut [...] any time in the past 12 m [facility], were you homeless or living in a skilled nursing (including now)? No 01/19/2025 Comments Unknown Sex [...] Info) Description 01/29/2025 11:00 AM EDT Infusion [facility] Heart & Vascular [place] [facility] Failure [facility] [address] [facility] [address] [place] [address] Health Maintenance Due Date Last Done Comments [...] - 2.7 mg/dL 01/23/2025 7:17 AM T [facility] Blood Blood specimen / Unknown 01/23/2025 6:11 AM EDT 01/23/2025 6:44 AM EDT Brittany Sheehan MD LAB BLOOD [place] [address], [address] [address] * (ABNORMAL) Basic Metabolic Panel (01/23/2025 6:11 AM EDT) Only the most recent of5 resultswithin the time period is included. [facility] Glucose 88 65 - 99 mg/dL 01/23/2025 7:17 AM [facility] Comment:Fasting: <100 mg/dL, Non-Fasting: <200 mg/dL (ADA 2005) Blood Urea Nitrogen (BUN) 32(H) 8 - 21 mg/dL 01/23/2025 7:17 AM [facility] Creatinine 1.3(H) 0.4 - 1.1 mg/dL 01/23/2025 7:17 AM [facility] eGFR 45(L) >59 01/23/2025 7:17 AM [facility] Comment:CKD-EPI (2020) in mL /min/1.73 sq meters. Sodium 142 136 - 145 mmol/L 01/23/2025 7:17 AM [facility] Potassium 3.8 3.4 - 5.3 mmol/L 01/23/2025 7:17 AM [facility] Chloride 100 98 - 107 mmol/L 01/23/2025 7:17 AM [facility] CO2 27 22 - 33 mmol/L 01/23/2025 7:17 AM [facility] Anion Gap 15 7 - 17 01/23/2025 7:17 AM [facility] Calcium 9.3 8.7 - 10.5 mg/dL 01/23/2025 7:17 AM [facility] BUN/Creatinine Ratio 25 10.0 - 25.0 Ratio 01/23/2025 7:17 AM [facility] Blood Blood specimen / Unknown 01/23/2025 6:11 AM EDT 01/23/2025 6:44 AM EDT Brittany Sheehan MD LAB BLOOD ORDERABLES Final Res ult [address] [address], [address] [address] * (ABNORMAL) COMPLETE BLOOD COUNT, WITHOUT DIFFERENTIAL (01/22/2025 8:02 AM EDT) Only the most recent of3 resultswithin the time period is included. White Blood Cell Count 6.8 4.0 - 11.0 Thou/uL 01/22/2025 8:38 AM [facility] Platelet Count 257 150 - 450 Thou/uL 01/22/2025 8:38 AM [facility] Hemoglobin 12.4 11.7 - 15.7 g/dL 01/22/2025 8:38 AM [facility] Hematocrit 38.1 35.0 - 47.0 % 01/22/2025 8:38 AM [facility] Red Blood Cell Count 4.01 4.00 - 5.40 Mil/uL 01/22/2025 8:38 AM [facility] MCV 95 80 - 100 fL 01/22/2025 8:38 AM [facility] MCH 30.9 27.0 - 31.0 pg 01/22/2025 8:38 AM [facility] MCHC 32.5 30.0 - 36.0 g/dL 01/22/2025 8:38 AM T [facility] RDW 14.7(H) 11.5 - 14.5 % 01/22/2025 8:38 AM T [facility] MPV 10.0 7.5 - 12.5 fL 01/22/2025 8:38 AM T [facility] Blood Blood specimen / Unknown 01/22/2025 8:02 AM EDT 01/22/2025 8:27 AM EDT us Brittany Sheehan MD LAB BLOOD ORDERABLES Final Res ult [address] [address], [address] [address] * Heparin Assay (Anti Xa) (01/20/2025 5:04 PM EDT) Only the most recent of8 resultswithin the time period is included. Anti Xa 0.75 IU/mL 01/20/2025 6:13 PM EDT [facility] Comment: (NOTE) Heparin Thromboembolic/Standard/Full Dose Protocol: [...] IV HEPARIN, UNFRACTIONATED 01/20/2025 11:23 AM EDT [facility] Blood Blood specimen / Unknown 01/20/2025 5:04 PM EDT 01/20/2025 5:59 PM EDT us Levi Perrin PA-C LAB BLOOD ORDERABLES Final Re sult Performing Organization Address City/State/[facility] Co de Phone Number [address] [address], [address] [address] * CC CORANGIO +LV+L/R CATH (01/20/2025 3:30 PM EDT) Anatomical Region Laterality Modality Radiographic Corinne ging Narrative 01/20/2025 3:45 PM EDT Table formatting from the original result was not included. Images from the original result were not included. [facility] Heart & Vascular [place] [facility] - Cardiac Catheterization Laboratory PATIENT DEMOGRAPHIC INFORMATION Name: Karol OLIVO: 1955 69 y.o. Sex: female Gender: female Procedure Date: 01/20/2025 PROCEDURE DETAILS Petroleum Sampler: Geovanni Howell MD Fellow: None Tanker Serviceman(s): none Indications for Procedure: Heart failure Referring [...] medical floor PROCEDURE FINDINGS Tracings available in SAVO log report Findings ?? Diagnostic ??Dominance: Right [...] hypertension, hyperlipidemia, obesity who initially presented to [facility] with chief complaint of chest pain with associated shortness of breath, patient was found to have elevated troponins, CT scan was negative for pulmonary embolism subsequently patient was transferred to [facility] for cardiac catheterization. Patient was found [...] this patient that I request from a [facility] PA/TRUSS DRIVER HELPER/fellow/staff member. Geovanni Howell MD [facility] [place] 01/20/2025 ??3:44 PM Coronary Findings Diagnostic Dominance: [...] Saturation (AVOX) (01/20/2025 3:17 PM EDT) Pathologist [facility] RA 65.6 60 - 75 % PA 64.2 60 - 75 % AO 93.8(A) 95 - 99 % Lot Number [id number] Meat Smoker Pass Pass Blood 01/20/2025 3:17 PM EDT Geovanni Howell MD POINT OF CARE TEST ORDERABLES Final Result * (ABNORMAL) proBNP, N-terminal (01/20/2025 7:55 AM EDT) Only the most recent of2 resultswithin the time period is included. Pathologist [facility] proBNP, N-terminal 12,481(H) <125 pg/mL 01/20/2025 10:36 AM EDT [facility] 01/20/2025 7:55 AM EDT 01/20/2025 8:37 AM EDT us Teresa Membreno PA-C LAB BLOOD ORDERCAROLIN maradiaga Result [facility] [address] [place] [address], [facility] [address] [place] [address] * Lipid Panel (AM) (01/20/2025 7:55 AM EDT) Cholesterol, Total 126 <200 mg/dL 2024 9:02 AM [facility] Triglycerides 117 <150 mg/dL 01/20/2025 9:02 AM [facility] Cholesterol, HDL 52 >39 mg/dL 01/21/20 9:02 AM [facility] Estimated LDL 51 <130 mg/dL 01/20/2025 9:02 AM [facility] Comment: NCEP Guidelines: ?< 100 mg/dL ??Optimal 100 - 129 mg/dL ??Near Optimal/Above Optimal 130 - 159 mg/dL ??Borderline High 160 - 189 mg/dL ??High ??>/= 190 mg/dL ??Very High Cholesterol/HDL Ratio 2.4 0.0 - 5.0 Ratio 01/20/2025 9:02 AM [facility] Comment: Relative Risk ? Ratio - Male ? Ratio - Female ?0.5 ?3.4 ?3.3 ?1.0 ?5.0 ?4.4 ?2.0 ?9.6 ?7.1 ?3.0 ? 23.4 ? 11.0 Blood Blood specimen / Unknown 01/20/2025 7:55 AM EDT 01/20/2025 8:37 AM EDT us Teresa Membreno PA-C LAB BLOOD ORDERABLES Liz hiren Result [facility] [address] [place] [address], [facility] [address] [place] [address] * ECG 12 lead (01/19/2025 9:09 AM EDT) Only the most recent of4 resultswithin the time period is included. Systolic BP 137 mmHg EKG [facility] Diastolic BP 58 mmHg EKG [facility] Ventricular rate 65 BPM EKG [facility] Atrial rate 65 BPM EKG [facility] P-R interval 128 ms EKG [facility] QRS duration 72 ms EKG [facility] Q-T interval 434 ms EKG [facility] QTC calculation (Bazett) 451 ms EKG [facility] P axis 28 degrees EKG [facility] R axis 63 degrees EKG [facility] T axis 110 degrees EKG [facility] 01/19/2025 9:09 AM EDT Narrative EKG [facility] - 01/19/2025 9:54 AM EDT Normal [...] Batista MD ECG ORDERABLES Final Result EKG [facility] * (ABNORMAL) Iron and Total Iron Binding Capacity (01/19/2025 8:00 AM EDT) Iron 21(L) 59 - 151 ug/dL 01/19/2025 9:48 AM EDT [facility] UIBC 151 112 - 346 ug/dL 01/19/2025 9:48 AM EDT [facility] Total Iron Binding Capacity 172 100 - 400 ug/dL 01/19/2025 9:48 AM EDT [facility] Iron Sat 12(L) 20 - 50 % 01/19/2025 9:48 AM EDT [facility] Blood Blood specimen / Unknown 01/19/2025 8:00 AM EDT 01/19/2025 9:04 AM EDT Vinicio Bedolla MD LAB BLOOD ORDERABLES Final Re sult Performing Organization Address [facility]/[place] [address], [place] [address] * Potassium (01/19/2025 8:00 AM EDT) Potassium 4.0 3.4 - 5.3 mmol/L 01/19/2025 9:48 AM EDT [facility] Blood Blood specimen / Unknown 01/19/2025 8:00 AM EDT 01/19/2025 9:04 AM EDT us Aarti Spears APRN LAB BLOOD ORDERABLES Final Result Performing Organization Address [facility]/[place] [address], [address] [address] * Folate Level (01/19/2025 8:00 AM EDT) Folate, Serum >20.0 >7.2 ng/mL 01/19/2025 10:12 AM EDT [facility] Comment:Specimen hemolyzed. Results may be artifactually elevated. Blood Blood specimen / Unknown 01/19/2025 8:00 AM EDT 01/19/2025 9:04 AM EDT Vinicio Bedolla MD LAB BLOOD ORDERABLES Final Re sult Performing Organization Address [facility] [place] [address], [place] [address] * Vitamin B12 (01/19/2025 8:00 AM EDT) Pathologist [facility] Vitamin B12 520 243 - 894 pg/mL 01/19/2025 9:48 AM EDT [facility] Blood Blood specimen / Unknown 01/19/2025 8:00 AM EDT 01/19/2025 9:04 AM EDT Vinicio Bedolla MD LAB BLOOD ORDERABLES Final Re sult Performing Organization Address [facility] [place] [address], [place] [address] * Hemoglobin A1C with Estimated Average Glucose (01/18/2025 11:46 PM EDT) Pathologist [facility] Hemoglobin A1C 5.3 <5.7 % 01/19/2025 12:38 PM EDT [facility] Comment: A1c% ? Interpretation 5.7 - 6.0 ?Increase risk of diabetes 6.1 - 6.4 ?Higher risk of diabetes > or = 6.5 ?? Consistent with diabetes Diabetes Care, 33(Supp 1):S1-S61, 2009 Estimated Average Glucose 105 mg/dL 01/19/2025 12:38 PM EDT [facility] Blood specimen / Unknown 01/18/2025 11:46 PM EDT 01/19/2025 12:18 AM EDT us Vinicio Bedolla MD LAB BLOOD ORDERABLES Final Re sult Performing Organization Address [facility] Co de Phone Number [address] [address], [address] [address] * Lactic Acid, Plasma (STAT) (01/18/2025 6:23 PM EDT) Only the most recent of3 resultswithin the time period is included. Lactic Acid 1.4 0.5 - 1.9 mmol/L 01/18/2025 7:09 PM EDT [facility] Blood Blood specimen / Unknown 01/18/2025 6:23 PM EDT 01/18/2025 6:42 PM EDT us Vinicio Bedolla MD LAB BLOOD ORDERABLES Final Re sult Performing Organization Address [facility] Co de Phone Number [address] [address], [address] [address] * XR Chest 1 view-Portable (01/18/2025 4:47 [...] Multiplex (FLUVID) (01/18/2025 4:43 PM EDT) Pathologist [facility] Influenza A Virus Not Detected Not Detected 01/18/2025 6:31 PM EDT [facility] Influenza B Virus Not Detected Not Detected 01/18/2025 6:31 PM EDT [facility] SARS-CoV-2 Not Detected Not Detected 01/18/2025 6:31 PM EDT [facility] Respiratory Syncytial Virus Not Detected Not Detected 01/18/2025 6:31 PM EDT [facility] Comment Negative results do not preclude SARS-CoV-2, Influenza or RSV infection and should not be used as the sole basis for treatment or other patient management decisions. 01/18/2025 6:31 PM EDT [facility] Swab, Nasopharyngeal Nasopharyngeal swab / Unknown 01/18/2025 4:43 PM EDT 01/18/2025 5:27 PM EDT Vinicio Bedolla MD MICROBIOLOGY - GENERAL ORDERA BLES Final Result [address] [address], [address] [address] * Urinalysis with Reflex to Microscopic (01/18/2025 4:43 PM EDT) Color Straw 01/18/2025 5:48 PM EDT [facility] Clarity Clear 01/18/2025 5:48 PM EDT [facility] Specific [place] 1.014 1.003 - 1.030 01/18/2025 5:48 PM EDT [facility] pH 6.0 5.0 - 8.0 01/18/2025 5:48 PM EDT [facility] Leukocyte Esterase Negative Negative 01/18/2025 5:48 PM EDT [facility] Nitrite Negative Negative 01/18/2025 5:48 PM EDT [facility] Protein Negative Negative 01/18/2025 5:48 PM EDT [facility] Glucose 0 0 - 99 mg/dL 01/18/2025 5:48 PM EDT [facility] Ketones Negative Negative 01/18/2025 5:48 PM EDT [facility] Blood Negative Negative 01/18/2025 5:48 PM EDT [facility] Bilirubin Negative Negative 01/18/2025 5:48 PM EDT [facility] WBC 0 0 - 4 per hpf 01/18/2025 5:48 PM EDT [facility] RBC 1 0 - 4 per hpf 01/18/2025 5:48 PM EDT [facility] Urine Urine specimen obtained by clean catch procedure / Unknown 01/18/2025 4:43 PM EDT 01/18/2025 5:31 PM EDT us Vinicio Bedolla MD URINE ORDERABLES Final Result Performing Organization Address City/[facility]/[place] [address], [place] [address] * Nasal MRSA Screen, PCR (01/18/2025 4:43 PM EDT) [facility] MRSA Result Not Detected Not Detected 7:03 PM EDT [facility] Comment:Performed by the Xpe rt MRSA NxG Assay Swab, Anterior Nares Specimen from nose / Unknown 01/18/2025 4:43 PM EDT 01/18/2025 5:30 PM EDT us Vinicio Bedolla MD MICROBIOLOGY - GENERAL ORDERA BLES Final Result Performing Organization Address [facility]/[place] [address], [place] [address] * ECHOCARDIOGRAM COMPREHENSIVE WITH CONTRAST (01/18/2025 4:39 [...] 542(HH) <15 ng/L 01/18/2025 1:36 PM EDT [facility] Comment:Recurring Critical R esult. Previously phoned. Delta (Change) 105(H) <3 01/18/2025 1:36 PM EDT [facility] Comment:Decreased 01/18/2025 12:3 3 PM EDT 01/18/2025 1:03 PM EDT Deena Guajardo MD LAB BLOOD ORDERABL ES Final Result Performing Organization Address [facility] Co de Phone Number [address] [address], [address] [address] * CT Chest Archive for Reference Only (01/18/2025 10:47 AM EDT) Narrative [facility] - 01/18/2025 10:47 AM EDT This study has been auto finalized and does not contain a result. File Room Provider IMG DIGITIZE FILMS Final Resu lt Performing Organization Address City/[facility]/ZIP Co de Phone Number [facility] [phone] * CR Chest Archive for Reference only (01/18/2025 10:47 AM EDT) Narrative [facility] - 01/18/2025 10:47 AM EDT This study has been auto finalized and does not contain a result. us File Room Provider IMG DIGITIZE FILMS Final Resu lt [facility] [phone] * Blood Culture (01/18/2025 10:39 AM EDT) Culture Sterile after 5 days 01/23/2025 7:10 AM EDT [facility] Blood Blood specimen / Unknown 01/18/2025 10:39 AM EDT 01/18/2025 11:07 AM EDT Comment:Blood us Deena Guajardo MD LAB BLOOD ORDERABL ES Final Result Performing Organization Address City/[facility]/ZIP Co de Phone Number [facility] [address] [place] [address], [place] * (ABNORMAL) Complete Blood Count, with Differential (01/18/2025 10:39 AM EDT) [facility] Signature White Blood Cell Count 20.1(H) 4.0 - 11.0 Thou/uL 01/18/2025 11:26 AM [facility] Platelet Count 219 150 - 450 Thou/uL 01/18/2025 11:26 AM [facility] Hemoglobin 11.1(L) 11.7 - 15.7 g/dL 01/18/2025 11:26 AM [facility] Hematocrit 37.2 35.0 - 47.0 % 01/18/2025 11:26 AM [facility] Red Blood Cell Count 3.64(L) 4.00 - 5.40 Mil/uL 01/18/2025 11:26 AM [facility] MCV 102(H) 80 - 100 fL 01/18/2025 11:26 AM [facility] MCH 30.5 27.0 - 31.0 pg 01/18/2025 11:26 AM [facility] MCHC 29.8(L) 30.0 - 36.0 g/dL 01/18/2025 11:26 AM [facility] RDW 15.0(H) 11.5 - 14.5 % 01/18/2025 11:26 AM [facility] MPV 10.1 7.5 - 12.5 fL 01/18/2025 11:26 AM [facility] Neutrophils Auto 90.1 % 01/19/20 11:26 AM [facility] Immature Granulocytes 0.6 % 01/18/2025 11:26 AM [facility] Lymphocytes Auto 3.8 % 01/19/20 11:26 AM [facility] Monocytes Auto 5.2 % 01/18/2025 11:26 AM [facility] Eosinophils Auto 0.0 % 01/19/20 11:26 AM [facility] Basophils Auto 0.3 % 01/18/2025 11:26 AM [facility] Abs Neutrophils Auto 18.10(H) 2.00 - 7.50 Thou/uL 01/18/2025 11:26 AM [facility] Abs Immature Granulocytes 0.12(H) 0.00 - 0.10 Thou/uL 01/18/2025 11:26 AM [facility] Abs Lymphocytes Auto 0.77(L) 1.50 - 4.50 Thou/uL 01/18/2025 11:26 AM [facility] Abs Monocytes Auto 1.05 0.20 - 1.50 Thou/uL 01/18/2025 11:26 AM [facility] Abs Eosinophils Auto 0.00 0.00 - 0.70 Thou/uL 01/18/2025 11:26 AM [facility] Abs Basophils Auto 0.07 0.00 - 0.20 Thou/uL 01/18/2025 11:26 AM [facility] Blood Blood specimen / Unknown 01/18/2025 10:39 AM EDT 01/18/2025 11:17 AM EDT Deena Guajardo MD LAB BLOOD ORDERABL ES Final Result [address] [address], [address] [address] * (ABNORMAL) Partial Thromboplastin Time (PTT) (01/18/2025 10:39 AM EDT) Anticoagulant IV HEPARIN, UNFRACTIONATED 01/18/2025 10:11 AM EDT [facility] Partial Thromboplastin Time (PTT) 67(H) 25 - 36 seconds 01/18/2025 11:39 AM T [facility] Blood Blood specimen / Unknown 01/18/2025 10:39 AM EDT 01/18/2025 11:17 AM EDT Deena Guajardo MD LAB BLOOD [place] [address], [place] [address] * Protime-INR (01/18/2025 10:39 AM EDT) Anticoagulant IV HEPARIN, UNFRACTIONATED 01/18/2025 10:11 AM [facility] Prothrombin Time (PT) 12.5 10.0 - 13.5 seconds 01/18/2025 11:39 AM [facility] INR 1.1 01/18/2025 11:39 AM [facility] Comment:INR Therapeutic Rang es: Standard dose anticoagulant 2.0 to 3.0, High dose anticoagulant 2.5-3.5. Blood Blood specimen / Unknown 01/18/2025 10:39 AM EDT 01/18/2025 11:17 AM EDT Deena Guajardo MD LAB BLOOD ORDERABL ES Final Result [address] [address], [address] [address] * (ABNORMAL) Comprehensive Metabolic Panel (01/18/2025 10:39 AM EDT) Glucose 112(H) 65 - 99 mg/dL 01/18/2025 12:09 PM T [facility] Comment:Fasting: <100 mg/dL, Non-Fasting: <200 mg/dL (ADA 2005) Blood Urea Nitrogen (BUN) 25(H) 8 - 21 mg/dL 01/18/2025 12:09 PM [facility] Creatinine 0.9 0.4 - 1.1 mg/dL 01/18/2025 12:09 PM [facility] eGFR 69 >59 01/18/2025 12:09 PM [facility] Comment:CKD-EPI (2020) in mL /min/1.73 sq meters. Sodium 141 136 - 145 mmol/L 01/18/2025 12:09 PM [facility] Potassium 3.8 3.4 - 5.3 mmol/L 01/18/2025 12:09 PM [facility] Chloride 106 98 - 107 mmol/L 01/18/2025 12:09 PM [facility] CO2 19(L) 22 - 33 mmol/L 01/18/2025 12:09 PM [facility] Calcium 8.8 8.7 - 10.5 mg/dL 01/18/2025 12:09 PM [facility] Alkaline Phosphatase 110 32 - 122 U/L 01/18/2025 12:09 PM [facility] Aspartate Aminotrans (AST) 46 10 - 50 U/L 01/18/2025 12:09 PM [facility] Alanine Aminotrans (ALT) 21 10 - 50 U/L 01/18/2025 12:09 PM [facility] Bilirubin, Total 0.5 0.2 - 1.0 mg/dL 01/18/2025 12:09 PM [facility] Protein, Total 6.6 6.3 - 8.3 g/dL 01/18/2025 12:09 PM [facility] Albumin 3.5 3.4 - 4.8 g/dL 01/18/2025 12:09 PM [facility] BUN/Creatinine Ratio 28(H) 10.0 - 25.0 Ratio 01/18/2025 12:09 PM [facility] Globulin 3.1 1.5 - 3.9 g/dL 01/18/2025 12:09 PM [facility] Albumin/Globulin Ratio 1.1 1.0 - 3.0 Ratio 01/18/2025 12:09 PM [facility] Anion Gap 16 7 - 17 01/18/2025 12:09 PM EDT [facility] Blood Blood specimen / Unknown 01/18/2025 10:39 AM EDT 01/18/2025 11:17 AM EDT Deena Guajardo MD LAB BLOOD ORDERABL ES Final Result [facility] [address] [place] [address], [facility] [address] [place] [address] from Last 3 Months Insurance [facility] MEDICARE PART A & B MEDICARE PART A & B [facility] Advance Directives * Full Code (Latest Code Status on File) Date Activated Date Inactivated Comments 01/18/2025 2:04 PM Care Teams Rig Supervisor Relationship Specialty Start Date End Date Kenisha Ozuna MD [address] [place] [phone] PCP - General Internal Medicine 01/19/25
--- OUTSIDE RECORDS SUMMARY | 2025-01-26 13:02 | XMS_ITS | Clinical Summary ---
Author Organization [facility] Facility Address [address] [place] [address] Care Team Providers Care Drum Operator Name Role Phone Deb Soliman MD Primary Care Provider [phone] Medications metoprolol tartrate (LOPRESSOR) 50 MG tablet [...] age to complete this topic Care Teams Drum Operator Relationship Specialty Start Date End Date Deb Soliman MD [address] [place] [address] [address] [place] [address] PCP - General 09/19/20
--- OUTSIDE RECORDS SUMMARY | 2025-01-26 13:03 | XMS_ITS | Encounter Summary ---
Author Organization [facility] Address [address] [place] [address] Care Team Providers Care Shovel Operator Name Role Phone Kenisha Ozuna MD Primary Care Provider [phone] Reason for Referral * Cardiology (Routine) - Authorized Specialty Diagnoses / Procedures Referred By Contac t Referred To Contact Cardiology Diagnoses Cardiogenic shock (HCC) Brittany Sheehan MD [address] [place] [address] Phone: tel: fax: [facility] [place] [facility] 85 [facility] [address] [place] [address] Phone: tel: fax: Referral ID Status Reason Start Date Expiration Date V isits Requested Visits Authorized [id number] Authorized Consult 01/22/2025 01/23/2026 1 1 Scheduling Instructions DIscharge home this weekend Reason for Visit * Reason Comments Chest Pain * Auth/Cert Specialty Diagnoses / Procedures Referred By Contac t Referred To Contact Diagnoses Cardiogenic shock (HCC) Procedures N/A Referral ID Status Reason Start Date Expiration Date Visits Re quested Visits Authorized [id number] 1 1 Encounter Details Date Type Department Care Team (Late st Contact Info) Description 01/18/2025 9:48 AM EDT - 01/23/2025 5:13 PM EDT Hospital Encounter [place] [address] [address] [place] [address] Monica Agrawal MD [address] [place] [address] [address] [place] [address] Vinicio Bedolla MD [address] [place] [phone] Vandana Barnes MD [address] [place] [phone] Brittany Sheehan MD [address] [place] [id number] Anupama Garner MD [address] [place] [id number] Diane Tipton MD [address] [place] [id number] Johnny Edwards MD [address] [place] [id number] Dante Ferrara MD [address] [place] [id number] Cardiogenic shock (HCC) (Primary Dx); NSTEMI (non-ST elevated myocardial infarction) (HCC); Pneumonia; Acute decompensated heart failure (HCC); Atrial fibrillation (HCC) Discharge Disposition: Home or Self Care Social History Tobacco Use Types Packs/Day Years Used Date Smoking Tobacco: Never Smokeless Tobacco: Never Tobacco Cessation:Counseling Given: Not Answered Alcohol Use Standard Drinks/Week Comments Not Currently 0 (1 standard drink = 0.6 oz pur e alcohol) [facility] Utilities Answer Date Recorded In the past 12 months has [employer], gas, oil, or water [employer] threatened to shut off services in your [...] any time in the past 12 [facility], were you homeless or living in a [place] health care facility (including now)? No 01/19/2025 Comments Unknown Sex [...] 01/23/2025 5:13 PM EDT Inpatient Discharge Summary [facility] Patient Demographics KAROL FRIAS 1955 69 [...] 11:00 AM CHAIR 1, CALVIN DORANTES None [facility] 85 [facility] [address] [facility] [address] Kenisha Ozuna MD [address] [place] [phone] Active Issues Requiring Follow-up -- repeat [...] heparin load and ASA 162, transferred to [facility] for additional care.EKG here NSR without ischemic [...] LHC during this admission, likely 01/20. Importantly, [place] called with results that patient's blood cultures [...] Case IDs Date Procedure Surgeon Location Status [id number] 01/20/25 CORONARY ANGIO W/LV+LT/RT CATH Geovanni Howell MD OLAP DEVELOPER Comp Diagnostic Studies: {diagnostics:07483 CARDIAC CATHETERIZATION Result Date: 01/20/2025 Table formatting from the original result was not included. Images from the original result were not included. [facility] at [facility] - Cardiac Catheterization Laboratory PATIENT DEMOGRAPHIC INFORMATION Name: Karol Frias : 1955 69 y.o. Sex: female Gender: female Procedure Date: 01/20/2025 PROCEDURE DETAILS Senior Tax Specialist: Geovanni Howell MD Fellow: None Mud Boss(s): none Indications for Procedure: Heart failure Referring [...] medical floor PROCEDURE FINDINGS Tracings available in [facility] log report Findings Diagnostic Dominance: Right Left [...] hypertension, hyperlipidemia, obesity who initially presented to [facility] with chief complaint of chest pain with associated shortness of breath, patient was found to have elevated troponins, CT scan was negative for pulmonary embolism subsequently patient was transferred to [facility] for cardiac catheterization. Patient was found to [...] this patient that I request from a [facility] PA/GREEN PRIZE PACKER/fellow/staff member. Geovanni Howell MD [facility] 01/20/2025 3:44 PM XR Chest 1 view-Portable Result Date: 01/19/2025 EXAMINATION: XR CHEST CLINICAL INFORMATION: sepsis COMPARISON: January 18, 2025 TECHNIQUE: Frontal viewof the chest was obtained. FINDINGS: Stable cardiac size. Trace left pleural effusion with left basilar subsegmental atelectasis. There is minimal interstitial pulmonary edema. No pneumothorax. 1. Trace left pleural effusion with left basilar subsegmental atelectasis. 2. Minimal interstitial pulmonary edema. 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 Limitations/Complications of the [...] Care Everywhere. * Heart Failure Action Plan (Uzbek) * Heart Failure: Self-Care (Uzbek) * Heart Failure: How to Manage (Uzbek) * Radial Site Care (Uzbek) * Furosemide Tablets (Uzbek) * Atrial Fibrillation Ubek-rx-Vdxt (Uzbek) documented in this encounter Medications at Time [...] workup of chest pain Was found at [facility] to have a group B strep [...] Daily Levi Perrin PA-C 200 mg at 01/23/25 0928 apixaban (ELIQUIS) tablet 5 mg 5 mg Oral Q12H [facility] Gera Sanchez MD 5 mg at [...] she is sinus at this time - [id number] . On Eliquis - Continue aspirin, Lipitor [...] has group B streptococcus bacteremia based on [place] labs. Patient was continued on ceftriaxone here [...] Sheehan MD 01/22/2025 9:41 AM * Magalys Wilson APRN - 01/22/2025 8:09 AM EDT Images from the original note were not included. Chief Complaint: Dyspnea Assessment & Plan Assessment Cardiomyopathy, EF 45% Chest pain Bacteremia-group B strep Hypertension Hyperlipidemia Fevers, chills Mild aortic stenosis Lactic acidosis, cleared NSTEMI 69 y.o. female with above history who transferred to 01/18/2025 from [facility] with increasing shortness of breath, CP. She was admitted with NSTEMI, transferred to [facility] for further evaluation. Echo had demonstrated LVEF-45% [...] arranged for her to follow-up with a fuel oil truck driver near her home in [place] She will follow-up with heart failure clinic at [facility] Subjective Resting in the chair. Feeling well. [...] workup of chest pain Was found at [facility] to have a group B strep [...] tablet 5 mg 5 mg Oral Q12H [facility] Gera Sanchez MD 5 mg at [...] Sheehan MD - 01/21/2025 9:38 AM EDT [facility] MEDICINE PROGRESS NOTE Assessment & Plan Brief [...] she is sinus at this time - [id number] . On Eliquis - Continue aspirin, Lipitor [...] level of independence with functional mobility. Current [facility] Basic Mobility Score: 22 Rehab Plan of [...] Level Achieved Ambulation Ambulation Distance (Feet) 250 [facility] Basic Mobility Turning from your back to [...] Climbing 3-5 steps with a railing? 3 [facility] Basic Mobility Score 22 Therapy Assessment/Plan (PT) [...] workup of chest pain Was found at [facility] to have a group B strep [...] likely need to continue Lasix after procedure -[id number] score is only 4, will need of [...] is not compromised. Sign Brittany Sheehan MD 01/20/2025 9:32 AM * Teresa Membreno [...] Type 1 non-ST elevation myocardial infarction (NSTEMI) ([facility]) Atrial fibrillation with RVR ([facility]) Systolic murmur ECHO EF 45%. Severe hypo to akinesis of the mid anterior, mid anterolateral, mid anterior septal and mid inferolateral segments. Mild aortic stenosis and mild to moderate tricuspid regurgitation. CXR trace left pleural effusion with left basilar subsegmental atelectasis. Minimal interstitial pulmonary edema. BNP 67842 Trop 647 -> 542 SBP 105 - Per interventional cardiology plan for RHC/LHC +/- PCI 01/20 and plan for n.p.o. at midnight - [id number] 2 - Continue heparin GTT - Aspirin [...] # Diet: Diet Cardiac; Carb Counting 75g/meal 5421-6053 kcal; 2 gm NA (Low Sodium); Low Fat (50gmfat, Low Chol, Low Sat Fat) Diet NPO; Meds # Code status: Full Code # Jacobsen catheter: No Active Urethral Catheter (Jacobsen) Order # Central lines: # Expected Date of Discharge: 01/25/2025 {Click to update EMILIANO: [id number]} VTE Time Out IMPROVE SCORE: 3 (01/18/2025 [...] treatment plan. This report was generated using [employer] Speaking dictation software. Although every attempt has [...] Information Admission Type inpatient Arrived From Hospital [facility]) Initial Information How to be Addressed [...] were you homeless or living in a [place] (including now)? N Food Insecurity Within the [...] In the past 12 months has the [employer], oil, or water [employer] threatened to shut off services in your [...] NSTEMI A fib with RVR Systolic Murmur [id number] 2 Presented with chest pain, found to have a fib rates 120s. EKG without ST elevations, though T waveinversions. HS trop 2K -> 4K, given heparin load and ASA 162, transferred to [facility] for additional care. EKG here NSR without [...] DO 01/19/2025 6:50 AM PGY2 Internal Medicine [facility] 10 ICU Available via Intellitactics Text 24 HOUR UPDATE Admitted to ICU Presented with chest pain, found to have a fib rates 120s. EKG without ST elevations, though T waveinversions. HS trop 2K -> 4K, given heparin load and ASA 162, transferred to [facility] for additional care. EKG here NSR without [...] and varicose veins who was transferred to [facility] for concerns for an NSTEMI. She initially presented to [facility] complaining of pain in the center of her chest. Lab work revealed an elevated troponin and she was transferred to [place] after being loaded with aspirin and started [...] cardiac history and has never seen a fuel oil truck driver or had an echocardiogram. In the emergency department her troponin was found to be elevated but was downtrending. Her ECG showed no signs of acute ischemia. Her initial lactic acid level was 4.4 which prompted the CCU evaluation. A myrxd-fl-kgeh ultrasound performed in the emergency department had [...] motion abnormalities possibly consistent with an LAD AK. The echo is also consistent with normal left atrial filling pressure with elevated pulmonary pressures, implying pulmonary hypertension discrepant to her left atrial pressure. While she was undergoing workup at [place] her initial blood cultures drawn at outside [...] 78 kg (171 lb 15.3 oz) IBW: [place] body weight: 47.8 kg (105 lb 6.1 [...] SCr of 0.9 mg/dL). Assessment: Analysis using Dizkon gives the following predicted pharmacokinetic parameters: CL: [...] daily. El Mooney PharmD A Document for: [facility] Title: Vancomycin: Pharmacy to Dose_[facility] Purpose: To provide instruction on pharmacy to [...] (Less than 28 days of age) Contact [facility]s [facility] [place] for assistance. AUC Therapeutic Drug Monitoring: An [...] patient safety. For some infections, such as TRANSPORT AIDE infections, a higher range of 500-600 may [...] In patients with fluctuating renal function, a gerp-jv-rpszb strategy can be utilized. Target AUC Concentrations: A target AUC of 400 to 600 is recommended for all patients except those with TRANSPORT AIDE infections. For TRANSPORT AIDE infections, a higher range of 500-600 may [...] that were collected prior to admission to [facility]. This will allow [employer]??? to recognize that [...] Nephrotoxic Agents: (list is not all-inclusive) Acyclovir [place] Aminoglycosides Loop Diuretics (usually higher doses) Amphotericin [...] is still accessible during the downtime, the Live[employer]ierRx??? web-based platform can still be utilized ([email or web address]/login). All general concepts or restrictions in this [...] shock New onset A. Fib Systolic Murmur [id number] 2 Presented with chest pain, found to have a fib rates 120s. EKG without ST elevations, though T waveinversions. HS trop 2K -> 4K, given heparin load and ASA 162, transferred to [facility] for additional care. EKG here NSR without [...] negative at OSH. Patient then transferred to [facility] for higher level of care. At [facility], patient heart rate 60s, normal sinus rhythm, [...] Medicine PGY2 MICU Eval Team Available via [place] Text (preferred) and EPIC Chat Cosigned by [...] Discussed with Dr Bedolla. Vivian Coates MD theater usher Subjective Chief Complaint CP History of Present Illness Karol Frias is a 69 y.o. female with PMHx of HTN and varicose veins. Presented to [facility] initially due to chest pain, center, [...] Coates MD 01/18/2025 3:20 PM Available via [place] Text 01/04 at Salad Counter Attendant Consult Service [1] [2] (Not in a [...] and varicose veins who was transferred to [facility] for concerns for an NSTEMI. She initially presented to [facility] complaining of pain in the center of her chest. Lab work revealed an elevated troponin and she was transferred to [place] after being loaded with aspirin and started [...] 4.4 which prompted the CCU evaluation. A rdrjz-ks-vzgq ultrasound performed in the emergency department had [...] motion abnormalities possibly consistent with an LAD AK. The echo is also consistent with normal left atrial filling pressure with elevated pulmonary pressures, implying pulmonary hypertension discrepant to her left atrial pressure. While she was undergoing workup at [place] her initial blood cultures drawn at outside [...] invasive lines or catheters I personally reviewed: Lcztt-nd-jeha ultrasound images This patient is critically ill due to: Distributive shock I have spent 55 minutes of critical care time directly on patient care today, excluding procedures. Vinicio Bedolla M.D. 01/18/2025 documented in this encounter Consult Notes * Meron Liu, RD - 01/21/2025 7:18 AM EDT [facility] Nutrition Note Consult received per profile risk [...] shaking chills and fevers. Patient transferred to [facility] for further evaluation. Elevated high-sensitivity troponin of [...] hypertension, hyperlipidemia, and obesity who presented to [facility] complaining of 8/10 throbbing chest pain in the mid to left sternum and shortness of breath. Lab work revealed elevated troponin, CT was neg ative for pulmonary embolism and she was transferred to [place] ED after being loaded with aspirinand started on heparin. In [facility] ED, HsT 647 -> 542, EKG did not show signs of ischemia, and lactic acid 4.4. Patient is scheduled for right/left heart catheterization. In [facility] lactic acid reduced to 1.4, proBNP elevated [...] with further evaluation with a cardiac angiogram [facility] +/- PCI, scheduled for 01/20/25, NPO [...] (including but not limited to , CVA, AK, emergency bypass surgery, acute kidney injury requiring hemodialysis, pericardial tamponade, ventricular arrhthymias, anaphylactic shock, vascular complications, bleeding, infection...) benefits and alternatives were discussed with the patient. She fully understands and has provided informed consent We discussed potential risk of contrast-induced nephropathy associated with her cardiac catheterization Please contact the prosthetics lab technician if the patient develops intractable chest pain, clinical instability, or dynamic ECG changes. Subjective Chief Complaint Chest pain History of Present Illness Karol Frias is a 69 year old female with a PMHx of DVT (not on anticoagulation), hypertension, hyperlipidemia, and obesity who presented to [facility] complaining of 8/10 throbbing chest pain [...] pulmonary embolism and she was transferred to [place] ED after being loaded with aspirin and started on heparin. In [facility] ED, HsT 647 -> 542, EKG did [...] information is collected for participation in the [employer] CATH/PCI Registry (ACCNCDR) and is used for submission of data and may not be entirely consistent with the clinical evaluation. ACC-NCDR CathPCI V5 Collection Form History and Risk Factors Hypertension: Yes Dyslipidemia: Yes Diabetes mellitus: No Diabetes therapy: None Hx of CAD: No Prior AK: No Prior CABG: No Prior diagnostic cath: No Prior PCI: No Currently on dialysis: No Cerebrovascular disease: No Peripheral arterial disease: No Chronic lung disease: No Tobacco use: Never Clinical frailty score: Vulnerable Pre-Procedure Information Prior heart failure: No Electrocardiac assessment method: ECG The assessment result was abnormal. - No new antiarrhythmic therapy was received prior to evaluation within the prosthetics lab technician. Paroxysmal afib Recent stress test performed: No Cardiac CTA performed: No Calcium score assessed: No LVEF assessed: Yes Most recent LVEF: 45% Indications and Presentation Indication(s) for prosthetics lab technician visit: new onset angina less than or [...] hypertension, hyperlipidemia, obesity who initially presented to [facility] with chief complaint of chest pain with associated shortness of breath, patient was found to have elevated troponins, CT scan was negative for pulmonary embolism subsequently patient was transferred to [facility] for cardiac catheterization. Patient was found to [...] patient. Risks including but not limited to AK, stroke, emergency bypass surgery, bleeding or vascularcomplications, [...] Problems: ASSESSMENT & PLAN Assessment I called [facility] and she had 1 of 2 [...] history of polymyositis, who was transferred to [facility] because of concerns for non-STEMI. She initially went to [facility] complaining of pain in the center of her chest. Workup revealed an elevated troponin she was transferred to [place] after being loaded with aspirin and started [...] cardiac history and has never seen a fuel oil truck driver. In the ED her troponin was elevated [...] motion abnormalities possibly consistent with an LAD AK. Echo was also consistent with normal left atrial filling pressure with elevated pulmonary pressures. Bloodcultures drawn at the outside hospital were found to be positive for gram-positive bacteria and shewas started on broad-spectrum antibiotics. Temperature is 99.5 with a white count of 20.1 down to 10.9. She got 1 dose of vancomycin and Rocephin. Urinalysis was unremarkable. 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 Limitations/Complications of the [...] mg 40 mg Intravenous BID Sruthi Edwards, GREEN PRIZE PACKER 40 mg at 01/19/25 1143 heparin (porcine) [...] 01/18/2025 3:01 PM EDT Report given to [place] [id number] ICU. Sushila Brooks RN 01/18/25 1502 * [...] Plan for admit. Sushila Brooks RN 01/18/25 [id number] * Monica Agrawal MD - 01/18/2025 12:37 [...] heparin load and ASA 162, transferred to [facility] for additional care.EKG here NSR without ischemic [...] C during this admission, likely 01/20. Importantly, [place] called with results that patient's blood cultures [...] has group B streptococcus bacteremia based on [place] labs. Patient was continued on ceftriaxone here [...] for this patient who was transferred to [facility] from [facility] with NSTEMI, Afib with RVR and new reduced Ejection Fraction of 45%, no previous fuel oil truck driver. Call placed to [facility] [phone] near patient's home and progress notes faxed for their review by LUNA, their nurse navigator who will then call me with an appointment with the appropriate fuel oil truck driver. Advised patient of this and she was accepting of a referral to their cardiology group. Also, made her aware our goal will be to get her close follow up with either her PCP (appt on 02/25) or our [facility] Bridge clinic in [place]. She is agreeable to this as well. [...] 4:58 PM * Provider Documentation Query - Brittany Sheehan MD - 01/20/2025 12:09 PM EDT Request for Documentation Clarification [facility] Karol Frias ; VISIT [id number] Query Response Sent: 01/20/25 12:09 EDT From: [...] to home, patient will require assist from [facility] as needed. . Rehab Plan of Care: [...] level of independence with functional mobility. Baseline [facility] Basic Mobility Score: 24 Current [facility] Basic Mobility Score: 22 Objective Data ROM: [...] Level Achieved Ambulation Ambulation Distance (Feet) 200 [facility] Basic Mobility Turning from your back to [...] Climbing 3-5 steps with a railing? 3 [facility] Basic Mobility Score 22 Therapy Assessment/Plan (PT) [...] Training Goal 1, PT) gait (walking locomotion) [place] Level (Gait Training Goal 1, PT) independent Distance (Gait Training Goal 1, PT) 400 Time Frame (Gait Training Goal 1, PT) 1 week Stairs Goal 1 (PT) Activity/Assistive Device (Stairs Goal 1, PT) stairs, all skills;ascending stairs;descending stairs [place] Level/Cues Needed (Stairs Goal 1, PT) modified [...] subsegmental atelectasis. Minimal interstitial pulmonary edema. BNP 77390 Trop 647 -> 542 SBP 105 - Per interventional cardiology plan for RHC/LHC +/- PCI 01/20 and plan for n.p.o. at midnight - [id number] 2 - Continue heparin GTT - Aspirin [...] subsegmental atelectasis. Minimal interstitial pulmonary edema. BNP 50430 Trop 647 -> 542 SBP 105 - Per interventional cardiology plan for RHC/LHC +/- PCI 01/20 and plan for n.p.o. at midnight - [id number] 2 - Continue heparin GTT - Aspirin [...] subsegmental atelectasis. Minimal interstitial pulmonary edema. BNP 06809 Trop 647 -> 542 SBP 105 - Per interventional cardiology plan for RHC/LHC +/- PCI 01/20 and plan for n.p.o. at midnight - [id number] 2 - Continue heparin GTT - Aspirin [...] subsegmental atelectasis. Minimal interstitial pulmonary edema. BNP 59875 Trop 647 -> 542 SBP 105 - Per interventional cardiology plan for RHC/LHC +/- PCI 01/20 and plan for n.p.o. at midnight - [id number] 2 - Continue heparin GTT - Aspirin [...] Type 1 non-ST elevation myocardial infarction (NSTEMI) ([facility]) ECHO EF 45%. Severe hypo to akinesis of the mid anterior, mid anterolateral, mid anterior septal and mid inferolateral segments. Mild aortic stenosis and mild to moderate tricuspid regurgitation. CXR trace left pleural effusion with left basilar subsegmental atelectasis. Minimal interstitial pulmonary edema. BNP 19878 Trop 647 -> 542 SBP 105 - Per interventional cardiology plan for RHC/LHC +/- PCI 01/20 and plan for n.p.o. at midnight - [id number] 2 - Continue heparin GTT - Aspirin [...] heparin load and ASA 162, transferred to [facility] for additional care.EKG here NSR without ischemic [...] LHC during this admission, likely 01/20. Importantly, [place] called with results that patient's blood cultures [...] Note Assessment completed with patient and/or patient's apprenticeship training representative, medical record review and discussion with clinical team. CC met with the patient using social distancing. Provided a Case Coordination packet with contact information, CC pamphlet and Your Next Step: Care Outside the Hospital brochure to the patient and/or patient apprenticeship training representative. Summary: Karol Frias is a 69 y.o. female w/ PMHx of hypertension, HLD, and obesity- BMI 32, who was transferred from [facility] with NSTEMI, and was admitted to ICU with cardiogenic shock. Pt lives with her spouse Guanako in a 2 level [facility] with 2 BARNEY & 1 FOS to bed/bath. 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 Pt is declining HC or rehabneeds at this time. Anticipated transition plan: Home- declines HC or rehab Caregiver/responsible person supports: Spouse- Guanako PCP: Updated in [facility]- pt believes she sees Dr. Ozuna in [place] Anticipated transportation: [facility] Referrals made: None at this time, pt [...] Info) Description 01/29/2025 11:00 AM EDT Infusion [facility] Heart & Vascular [facility] [address] [place] [address] Pending Results Name Type Priority Associated Diagnoses Date /Time AIR POLLUTION AUDITOR CARDIAC POC ULTRASOUND Imaging Routine NSTEMI (non-ST [...] METABOLIC PANEL Routine 01/18/2025 11:46 PM EDT AIR POLLUTION AUDITOR CARDIAC POC ULTRASOUND Routine 01/18/2025 8:55 PM [...] Magnesium (AM) (01/23/2025 6:11 AM EDT) Pathologist [facility] Magnesium 2.0 1.6 - 2.7 mg/dL 01/23/2025 7:17 AM [facility] Blood Blood specimen / Unknown 01/23/2025 6:11 AM EDT 01/23/2025 6:44 AM EDT us Brittany Sheehan MD LAB BLOOD ORDERAB[place] [address], [place] [address] * (ABNORMAL) Basic Metabolic Panel (01/23/2025 6:11 AM EDT) [facility] Glucose 88 65 - 99 mg/dL 01/23/2025 7:17 AM [facility] Comment:Fasting: <100 mg/dL, Non-Fasting: <200 mg/dL (ADA 2005) Blood Urea Nitrogen (BUN) 32(H) 8 - 21 mg/dL 01/23/2025 7:17 AM [facility] Creatinine 1.3(H) 0.4 - 1.1 mg/dL 01/23/2025 7:17 AM [facility] eGFR 45(L) >59 01/23/2025 7:17 AM [facility] Comment:CKD-EPI (2020) in mL /min/1.73 sq meters. Sodium 142 136 - 145 mmol/L 01/23/2025 7:17 AM [facility] Potassium 3.8 3.4 - 5.3 mmol/L 01/23/2025 7:17 AM [facility] Chloride 100 98 - 107 mmol/L 01/23/2025 7:17 AM [facility] CO2 27 22 - 33 mmol/L 01/23/2025 7:17 AM [facility] Anion Gap 15 7 - 17 01/23/2025 7:17 AM [facility] Calcium 9.3 8.7 - 10.5 mg/dL 01/23/2025 7:17 AM [facility] BUN/Creatinine Ratio 25 10.0 - 25.0 Ratio 01/23/2025 7:17 AM [facility] Blood Blood specimen / Unknown 01/23/2025 6:11 AM EDT 01/23/2025 6:44 AM EDT us Brittany Sheehan MD LAB BLOOD ORDERABLES Final Res ult [address] [address], [address] [address] * (ABNORMAL) COMPLETE BLOOD COUNT, WITHOUT DIFFERENTIAL (01/22/2025 8:02 AM EDT) White Blood Cell Count 6.8 4.0 - 11.0 Thou/uL 01/22/2025 8:38 AM [facility] Platelet Count 257 150 - 450 Thou/uL 01/22/2025 8:38 AM [facility] Hemoglobin 12.4 11.7 - 15.7 g/dL 01/22/2025 8:38 AM [facility] Hematocrit 38.1 35.0 - 47.0 % 01/22/2025 8:38 AM [facility] Red Blood Cell Count 4.01 4.00 - 5.40 Mil/uL 01/22/2025 8:38 AM [facility] MCV 95 80 - 100 fL 01/22/2025 8:38 AM [facility] MCH 30.9 27.0 - 31.0 pg 01/22/2025 8:38 AM [facility] MCHC 32.5 30.0 - 36.0 g/dL 01/22/2025 8:38 AM [facility] RDW 14.7(H) 11.5 - 14.5 % 01/22/2025 8:38 AM [facility] MPV 10.0 7.5 - 12.5 fL 01/22/2025 8:38 AM [facility] Blood Blood specimen / Unknown 01/22/2025 8:02 AM EDT 01/22/2025 8:27 AM EDT us Brittany Sheehan MD LAB BLOOD ORDERABLES Final Res ult Performing Organization Address City/[facility]/[place] [address], [place] [address] * Magnesium (AM) (01/22/2025 8:02 AM EDT) Magnesium 2.1 1.6 - 2.7 mg/dL 01/22/2025 9:03 AM EDT [facility] Blood Blood specimen / Unknown 01/22/2025 8:02 AM EDT 01/22/2025 8:27 AM EDT Brittany Sheehan MD LAB BLOOD ORDERABLES Final Res ult Performing Organization Address City/[facility]/[place] [address], [address] [address] * (ABNORMAL) Basic Metabolic Panel (01/22/2025 8:02 AM EDT) Glucose 82 65 - 99 mg/dL 01/22/2025 9:03 AM [facility] Comment:Fasting: <100 mg/dL, Non-Fasting: <200 mg/dL (ADA 2005) Blood Urea Nitrogen (BUN) 25(H) 8 - 21 mg/dL 01/22/2025 9:03 AM [facility] Creatinine 1.0 0.4 - 1.1 mg/dL 01/22/2025 9:03 AM [facility] eGFR 61 >59 01/22/2025 9:03 AM [facility] Comment:CKD-EPI (2020) in mL /min/1.73 sq meters. Sodium 143 136 - 145 mmol/L 01/22/2025 9:03 AM [facility] Potassium 4.1 3.4 - 5.3 mmol/L 01/22/2025 9:03 AM EDT [facility] Chloride 101 98 - 107 mmol/L 01/22/2025 9:03 AM EDT [facility] CO2 27 22 - 33 mmol/L 01/22/2025 9:03 AM EDT [facility] Anion Gap 15 7 - 17 01/22/2025 9:03 AM EDT [facility] Calcium 10.1 8.7 - 10.5 mg/dL 01/22/2025 9:03 AM EDT [facility] BUN/Creatinine Ratio 25 10.0 - 25.0 Ratio 01/22/2025 9:03 AM EDT [facility] Blood Blood specimen / Unknown 01/22/2025 8:02 AM EDT 01/22/2025 8:27 AM EDT Brittany Sheehan MD LAB BLOOD ORDERABLES Final Res ult Performing Organization Address [facility]/[place] [address], [place] [address] * Magnesium (AM) (01/21/2025 8:19 AM EDT) Magnesium 1.7 1.6 - 2.7 mg/dL 01/21/2025 9:16 AM EDT [facility] Blood Blood specimen / Unknown 01/21/2025 8:19 AM EDT 01/21/2025 8:56 AM EDT Levi Perrin PA-C LAB BLOOD ORDERABLES [place] [address], [place] [address] * Basic Metabolic Panel (01/21/2025 8:19 AM EDT) Glucose 76 65 - 99 mg/dL 01/21/2025 9:16 AM EDT [facility] Comment:Fasting: <100 mg/dL, Non-Fasting: <200 mg/dL (ADA 2005) Blood Urea Nitrogen (BUN) 16 8 - 21 mg/dL 01/21/2025 9:16 AM [facility] Creatinine 0.8 0.4 - 1.1 mg/dL 01/21/2025 9:16 AM [facility] eGFR 80 >59 01/21/2025 9:16 AM [facility] Comment:CKD-EPI (2020) in mL /min/1.73 sq meters. Sodium 140 136 - 145 mmol/L 01/21/2025 9:16 AM [facility] Potassium 3.7 3.4 - 5.3 mmol/L 01/21/2025 9:16 AM [facility] Chloride 103 98 - 107 mmol/L 01/21/2025 9:16 AM [facility] CO2 25 22 - 33 mmol/L 01/21/2025 9:16 AM [facility] Anion Gap 12 7 - 17 01/21/2025 9:16 AM [facility] Calcium 9.5 8.7 - 10.5 mg/dL 01/21/2025 9:16 AM [facility] BUN/Creatinine Ratio 20 10.0 - 25.0 Ratio 01/21/2025 9:16 AM [facility] Blood Blood specimen / Unknown 01/21/2025 8:19 AM EDT 01/21/2025 8:56 AM EDT Levi Perrin PA-C LAB BLOOD ORDERABLES [place] [address], [address] [address] * Heparin Assay (Anti Xa) (01/20/2025 5:04 PM EDT) Anti Xa 0.75 IU/mL 01/20/2025 6:13 PM [facility] Comment: (NOTE) Heparin Thromboembolic/Standard/Full Dose Protocol: Therapeutic [...] IV HEPARIN, UNFRACTIONATED 01/20/2025 11:23 AM EDT [facility] Blood Blood specimen / Unknown 01/20/2025 5:04 PM EDT 01/20/2025 5:59 PM EDT us Levi Perrin PA-C LAB BLOOD ORDERABLES Final Re sult [address] [address], [address] [address] * CC CORANGIO +LV+L/R CATH (01/20/2025 3:30 PM EDT) Anatomical Region Laterality Modality Radiographic Corinne ging Narrative 01/20/2025 3:45 PM EDT Table formatting from the original result was not included. Images from the original result were not included. [facility] Heart [facility] V[facility] - Cardiac Catheterization Laboratory PATIENT DEMOGRAPHIC INFORMATION Name: Karol Frias : 1955 69 y.o. Sex: female Gender: female Procedure Date: 01/20/2025 PROCEDURE DETAILS Senior Tax Specialist: Geovanni Howell MD Fellow: None Mud Boss(s): none Indications for Procedure: Heart failure Referring [...] medical floor PROCEDURE FINDINGS Tracings available in [employer] log report Findings ?? Diagnostic ??Dominance: Right [...] hypertension, hyperlipidemia, obesity who initially presented to [facility] with chief complaint of chest pain with associated shortness of breath, patient was found to have elevated troponins, CT scan was negative for pulmonary embolism subsequently patient was transferred to [facility] for cardiac catheterization. Patient was found to [...] this patient that I request from a [facility] PA/GREEN PRIZE PACKER/fellow/staff member. Geovanni Howell MD [facility] 01/20/2025 ??3:44 PM Coronary Findings Diagnostic Dominance: [...] 93.8(A) 95 - 99 % Lot Number [id number] Skip Operator Pass Pass Blood 01/20/2025 3:17 PM EDT us Geovanni Howell MD POINT OF CARE TEST ORDERABLES Final Result * Heparin Assay (Anti Xa) (01/20/2025 10:13 AM EDT) Anti Xa 0.43 IU/mL 01/20/2025 10:44 AM EDT [facility] Comment: (NOTE) Heparin Thromboembolic/Standard/Full Dose Protocol: [...] IV HEPARIN, UNFRACTIONATED 01/20/2025 4:30 AM EDT [facility] Blood Blood specimen / Unknown 01/20/2025 10:13 AM EDT 01/20/2025 10:30 AM EDT Brittany Sheehan MD LAB BLOOD ORDERABLES Final Res ult Performing Organization Address [facility] [place] [address], [place] [address] * (ABNORMAL) proBNP, N-terminal (01/20/2025 7:55 AM EDT) proBNP, N-terminal 12,481(H) <125 pg/mL 01/20/2025 10:36 AM EDT [facility] 01/20/2025 7:55 AM EDT 01/20/2025 8:37 AM EDT Teresa Membreno PA-C LAB BLOOD ORDERABLES Liz l Result Performing Organization Address [facility] [place] [address], [place] [address] * Magnesium (01/20/2025 7:55 AM EDT) Magnesium 1.7 1.6 - 2.7 mg/dL 01/20/2025 9:02 AM EDT [facility] Blood Blood specimen / Unknown 01/20/2025 7:55 AM EDT 01/20/2025 8:37 AM EDT us Teresa Mebmreno PA-C LAB BLOOD ORDERABLES Liz maradiaga Result [facility] [address] [place] [address], [facility] [address] [place] [address] * (ABNORMAL) Basic Metabolic Panel (01/20/2025 7:55 AM EDT) Glucose 71 65 - 99 mg/dL 01/20/2025 9:02 AM T [facility] Comment:Fasting: <100 mg/dL, Non-Fasting: <200 mg/dL (ADA 2004) Blood Urea Nitrogen (BUN) 20 8 - 21 mg/dL 01/20/2025 9:02 AM [facility] Creatinine 0.9 0.4 - 1.1 mg/dL 01/20/2025 9:02 AM [facility] eGFR 69 >59 01/20/2025 9:02 AM [facility] Comment:CKD-EPI (2020) in mL /min/1.73 sq meters. Sodium 144 136 - 145 mmol/L 01/20/2025 9:02 AM [facility] Potassium 3.6 3.4 - 5.3 mmol/L 01/20/2025 9:02 AM [facility] Chloride 108(H) 98 - 107 mmol/L 01/20/2025 9:02 AM [facility] CO2 24 22 - 33 mmol/L 01/20/2025 9:02 AM [facility] Anion Gap 12 7 - 17 01/20/2025 9:02 AM [facility] Calcium 9.3 8.7 - 10.5 mg/dL 01/20/2025 9:02 AM [facility] BUN/Creatinine Ratio 22 10.0 - 25.0 Ratio 01/20/2025 9:02 AM [facility] Blood Blood specimen / Unknown 01/20/2025 7:55 AM EDT 01/20/2025 8:37 AM EDT us Teresa Membreno PA-C LAB BLOOD ORDERABLES Liz l Result Performing Organization Address City/[facility]/ZIP Co de Phone Number [address] [address], [address] [address] * (ABNORMAL) COMPLETE BLOOD COUNT, WITHOUT DIFFERENTIAL (01/20/2025 7:55 AM EDT) [facility] White Blood Cell Count 6.9 4.0 - 11.0 Thou/uL 01/20/2025 8:50 AM [facility] Platelet Count 178 150 - 450 Thou/uL 01/20/2025 8:50 AM [facility] Hemoglobin 10.8(L) 11.7 - 15.7 g/dL 01/20/2025 8:50 AM [facility] Hematocrit 34.2(L) 35.0 - 47.0 % 01/20/2025 8:50 AM [facility] Red Blood Cell Count 3.49(L) 4.00 - 5.40 Mil/uL 01/20/2025 8:50 AM [facility] MCV 98 80 - 100 fL 01/20/2025 8:50 AM [facility] MCH 30.9 27.0 - 31.0 pg 01/20/2025 8:50 AM [facility] MCHC 31.6 30.0 - 36.0 g/dL 01/20/2025 8:50 AM [facility] RDW 15.3(H) 11.5 - 14.5 % 01/20/2025 8:50 AM [facility] MPV 10.0 7.5 - 12.5 fL 01/20/2025 8:50 AM [facility] Blood Blood specimen / Unknown 01/20/2025 7:55 AM EDT 01/20/2025 8:37 AM EDT Teresa Membreno PA-C LAB BLOOD ORDERABLES Liz l Result Performing Organization Address City/[facility]/ZIP Co de Phone Number [address] [address], [address] [address] * Lipid Panel (AM) (01/20/2025 7:55 AM EDT) [facility] Cholesterol, Total 126 <200 mg/dL 2024 9:02 AM T [facility] Triglycerides 117 <150 mg/dL 01/20/2025 9:02 AM [facility] Cholesterol, HDL 52 >39 mg/dL 01/21/20 9:02 AM [facility] Estimated LDL 51 <130 mg/dL 01/20/2025 9:02 AM [facility] Comment: NCEP Guidelines: ?< 100 mg/dL ??Optimal 100 - 129 mg/dL ??Near Optimal/Above Optimal 130 - 159 mg/dL ??Borderline High 160 - 189 mg/dL ??High ??>/= 190 mg/dL ??Very High Cholesterol/HDL Ratio 2.4 0.0 - 5.0 Ratio 01/20/2025 9:02 AM [facility] Comment: Relative Risk ? Ratio - Male ? Ratio - Female ?0.5 ?3.4 ?3.3 ?1.0 ?5.0 ?4.4 ?2.0 ?9.6 ?7.1 ?3.0 ? 23.4 ? 11.0 Blood Blood specimen / Unknown 01/20/2025 7:55 AM EDT 01/20/2025 8:37 AM EDT Teresa Membreno PA-C LAB BLOOD ORDERABLES Liz maradiaga Result [facility] [address] [place] [address], [facility] [address] [place] [address] * Heparin Assay (Anti Xa) (01/20/2025 3:51 AM EDT) Anti Xa 0.53 IU/mL 01/20/2025 4:12 AM EDT [facility] Comment: (NOTE) Heparin Thromboembolic/Standard/Full Dose Protocol: [...] IV HEPARIN, UNFRACTIONATED 01/19/2025 11:06 PM EDT [facility] Blood Blood specimen / Unknown 01/20/2025 3:51 AM EDT 01/20/2025 3:59 AM EDT us Brittany Sheehan MD LAB BLOOD ORDERABLES Final Res ult Performing Organization Address City/State/[facility] Co de Phone Number [facility] [address] [place] [address], [facility] [address] [place] [address] * Heparin Assay (Anti Xa) (01/19/2025 9:44 PM EDT) Anti Xa 0.39 IU/mL 01/19/2025 10:05 PM EDT [facility] Comment: (NOTE) Heparin Thromboembolic/Standard/Full Dose Protocol: [...] IV HEPARIN, UNFRACTIONATED 01/19/2025 7:51 PM EDT [facility] Blood Blood specimen / Unknown 01/19/2025 9:44 PM EDT 01/19/2025 9:48 PM EDT Vandana Barnes MD LAB BLOOD ORDERABLES Final R esult Performing Organization Address City/State/[facility] [place] [address], [place] [address] * Heparin Assay (Anti Xa) (01/19/2025 2:00 PM EDT) Anti Xa 0.26 IU/mL 01/19/2025 2:55 PM EDT [facility] Comment: (NOTE) Heparin Thromboembolic/Standard/Full Dose Protocol: [...] IV HEPARIN, UNFRACTIONATED 01/19/2025 2:03 PM EDT [facility] Blood Blood specimen / Unknown 01/19/2025 2:00 PM EDT 01/19/2025 2:37 PM EDT us Vinicio Bedolla MD LAB BLOOD ORDERABLES Final Re sult Performing Organization Address [facility] Co de Phone Number [facility] [address] [place] [address], [address] [address] * ECG 12 lead (01/19/2025 9:09 AM EDT) Systolic BP 137 mmHg EKG [facility] Diastolic BP 58 mmHg EKG [facility] Ventricular rate 65 BPM EKG [facility] Atrial rate 65 BPM EKG [facility] P-R interval 128 ms EKG [facility] QRS duration 72 ms EKG [facility] Q-T interval 434 ms EKG [facility] QTC calculation (Bazett) 451 ms EKG [facility] P axis 28 degrees EKG [facility] R axis 63 degrees EKG [facility] T axis 110 degrees EKG [facility] 01/19/2025 9:09 AM EDT Narrative EKG [facility] - 01/19/2025 9:54 AM EDT Normal [...] ECG ORDERABLES Final Result Performing Organization Address City/[facility]/ZIP Co de Phone Number EKG [facility] * Folate Level (01/19/2025 8:00 AM EDT) Folate, Serum >20.0 >7.2 ng/mL 01/19/2025 10:12 AM EDT [facility] Comment:Specimen hemolyzed. Results may be artifactually elevated. Blood Blood specimen / Unknown 01/19/2025 8:00 AM EDT 01/19/2025 9:04 AM EDT us Vinicio Bedolla MD LAB BLOOD ORDERABLES Final Re sult Performing Organization Address [facility] [place] [address], [place] [address] * Vitamin B12 (01/19/2025 8:00 AM EDT) Vitamin B12 520 243 - 894 pg/mL 01/19/2025 9:48 AM EDT [facility] Blood Blood specimen / Unknown 01/19/2025 8:00 AM EDT 01/19/2025 9:04 AM EDT us Vinicio Bedolla MD LAB BLOOD ORDERABLES Final Re sult Performing Organization Address [facility] [place] [address], [address] [address] * (ABNORMAL) Iron and Total Iron Binding Capacity (01/19/2025 8:00 AM EDT) Iron 21(L) 59 - 151 ug/dL 01/19/2025 9:48 AM EDT [facility] UIBC 151 112 - 346 ug/dL 01/19/2025 9:48 AM EDT [facility] Total Iron Binding Capacity 172 100 - 400 ug/dL 01/19/2025 9:48 AM EDT [facility] Iron Sat 12(L) 20 - 50 % 01/19/2025 9:48 AM EDT [facility] Blood Blood specimen / Unknown 01/19/2025 8:00 AM EDT 01/19/2025 9:04 AM EDT Vinicio Bedolla MD LAB BLOOD ORDERABLES Final Re sult Performing Organization Address [facility]/ZIP Co de Phone Number [address] [address], [address] [address] * Magnesium (Routine) (01/19/2025 8:00 AM EDT) Magnesium 2.2 1.6 - 2.7 mg/dL 01/19/2025 9:48 AM EDT [facility] Blood Blood specimen / Unknown 01/19/2025 8:00 AM EDT 01/19/2025 9:04 AM EDT Aarti Spears APRN LAB BLOOD ORDERABLES Final Result Performing Organization Address [facility] Co de Phone Number [address] [address], [address] [address] * Potassium (01/19/2025 8:00 AM EDT) Potassium 4.0 3.4 - 5.3 mmol/L 01/19/2025 9:48 AM EDT [facility] Blood Blood specimen / Unknown 01/19/2025 8:00 AM EDT 01/19/2025 9:04 AM EDT Aarti Spears APRN LAB BLOOD ORDERABLES Final Result Performing Organization Address City/[facility] Co de Phone Number [address] [address], [address] [address] * ECG 12 lead (01/19/2025 7:31 AM EDT) Systolic BP 116 mmHg EKG [facility] Diastolic BP 62 mmHg EKG [facility] Ventricular rate 154 BPM EKG [facility] Atrial rate 163 BPM EKG [facility] QRS duration 70 ms EKG [facility] Q-T interval 296 ms EKG [facility] QTC calculation (Bazett) 474 ms EKG [facility] R axis 64 degrees EKG [facility] T axis 110 degrees EKG [facility] 01/19/2025 7:31 AM EDT Narrative EKG [facility] - 01/19/2025 8:10 AM EDT Atrial fibrillation with rapid ventricular response Nonspecific ST abnormality Abnormal ECG Confirmed by MD Murdock John ([id number]) on 01/19/2025 8:10:36 AM Procedure Note Moy Murdock MD - 01/19/2025 Atrial fibrillation with rapid ventricular response Nonspecific ST abnormality Abnormal ECG Confirmed by MD Murdock John ([id number]) on 01/19/2025 8:10:36 AM Moy Murdock MD ECG ORDERABLES Final Result [facility] * Heparin Assay (Anti Xa) (01/19/2025 6:01 AM EDT) Anti Xa 0.28 IU/mL 01/19/2025 6:47 AM EDT [facility] Comment: (NOTE) Heparin Thromboembolic/Standard/Full Dose Protocol: [...] IV HEPARIN, UNFRACTIONATED 01/19/2025 6:01 AM EDT [facility] Blood Blood specimen / Unknown 01/19/2025 6:01 AM EDT 01/19/2025 6:29 AM EDT us Vinicio Bedolla MD LAB BLOOD ORDERABLES Final Re sult [address] [address], [address] [address] * Hemoglobin A1C with Estimated Average Glucose (01/18/2025 11:46 PM EDT) Hemoglobin A1C 5.3 <5.7 % 01/19/2025 12:38 PM EDT [facility] Comment: A1c% ? Interpretation 5.7 - 6.0 ?Increase risk of diabetes 6.1 - 6.4 ?Higher risk of diabetes > or = 6.5 ?? Consistent with diabetes Diabetes Care, 33(Supp 1):S1-S61, 2009 Estimated Average Glucose 105 mg/dL 01/19/2025 12:38 PM EDT [facility] Blood specimen / Unknown 01/18/2025 11:46 PM EDT 01/19/2025 12:18 AM EDT us Vinicio Bedolla MD LAB BLOOD ORDERABLES Final Re sult Performing Organization Address [facility] [place] [address], [place] [address] * Magnesium (Early AM) (01/18/2025 11:46 PM EDT) Magnesium 1.7 1.6 - 2.7 mg/dL 01/19/2025 12:39 AM EDT [facility] Blood Blood specimen / Unknown 01/18/2025 11:46 PM EDT 01/19/2025 12:18 AM EDT us Vinicio Bedolla MD LAB BLOOD ORDERABLES Final Re sult Performing Organization Address [facility] [place] [address], [place] [address] * (ABNORMAL) Basic Metabolic Panel (Early AM) (01/18/2025 11:46 PM EDT) Glucose 83 65 - 99 mg/dL 01/19/2025 12:39 AM T [facility] Comment:Fasting: <100 mg/dL, Non-Fasting: <200 mg/dL (ADA 2005) Blood Urea Nitrogen (BUN) 23(H) 8 - 21 mg/dL 01/19/2025 12:39 AM T [facility] Creatinine 0.8 0.4 - 1.1 mg/dL 01/19/2025 12:39 AM [facility] eGFR 80 >59 01/19/2025 12:39 AM [facility] Comment:CKD-EPI (2020) in mL /min/1.73 sq meters. Sodium 143 136 - 145 mmol/L 01/19/2025 12:39 AM [facility] Potassium 3.3(L) 3.4 - 5.3 mmol/L 01/19/2025 12:39 AM [facility] Chloride 108(H) 98 - 107 mmol/L 01/19/2025 12:39 AM [facility] CO2 25 22 - 33 mmol/L 01/19/2025 12:39 AM [facility] Anion Gap 10 7 - 17 01/19/2025 12:39 AM [facility] Calcium 9.0 8.7 - 10.5 mg/dL 01/19/2025 12:39 AM [facility] BUN/Creatinine Ratio 29(H) 10.0 - 25.0 Ratio 01/19/2025 12:39 AM [facility] Blood Blood specimen / Unknown 01/18/2025 11:46 PM EDT 01/19/2025 12:18 AM EDT us Vinicio Bedolla MD LAB BLOOD ORDERABLES [place] [address], [place] [address] * (ABNORMAL) Complete Blood Count WITHOUT Differential - in AM (01/18/2025 11:46 PM EDT) White Blood Cell Count 10.9 4.0 - 11.0 Thou/uL 01/19/2025 12:26 AM [facility] Platelet Count 192 150 - 450 Thou/uL 01/19/2025 12:26 AM [facility] Hemoglobin 10.0(L) 11.7 - 15.7 g/dL 01/19/2025 12:26 AM [facility] Hematocrit 31.4(L) 35.0 - 47.0 % 01/19/2025 12:26 AM [facility] Red Blood Cell Count 3.19(L) 4.00 - 5.40 Mil/uL 01/19[facility] 98 80 - 100 fL 01/19/2025 12:26 AM T [facility] MCH 31.3(H) 27.0 - 31.0 pg 01/19/2025 12:26 AM [facility] MCHC 31.8 30.0 - 36.0 g/dL 01/19/2025 12:26 AM T [facility] RDW 15.1(H) 11.5 - 14.5 % 01/19/2025 12:26 AM [facility] MPV 10.0 7.5 - 12.5 fL 01/19/2025 12:26 AM [facility] Blood Blood specimen / Unknown 01/18/2025 11:46 PM EDT 01/19/2025 12:18 AM EDT us Vinicio Bedolla MD LAB BLOOD ORDERABLES [place] [address], [facility] [address] [place] [address] * Heparin Assay (Anti Xa) (01/18/2025 8:30 PM EDT) Anti Xa 0.27 IU/mL 01/18/2025 11:30 PM EDT [facility] Comment: (NOTE) Heparin Thromboembolic/Standard/Full Dose Protocol: [...] IV HEPARIN, UNFRACTIONATED 01/18/2025 8:12 PM EDT [facility] Blood Blood specimen / Unknown 01/18/2025 8:30 PM EDT 01/18/2025 10:56 PM EDT us Vinicio Bedolla MD LAB BLOOD ORDERABLES Final Re sult [address] [address], [address] [address] * Lactic Acid, Plasma (STAT) (01/18/2025 6:23 PM EDT) Lactic Acid 1.4 0.5 - 1.9 mmol/L 01/18/2025 7:09 PM EDT [facility] Blood Blood specimen / Unknown 01/18/2025 6:23 PM EDT 01/18/2025 6:42 PM EDT us Vinicio Bedolla MD LAB BLOOD ORDERABLES Final Re sult Performing Organization Address City/[facility] [place] [address], [address] [address] * (ABNORMAL) proBNP, N-terminal (01/18/2025 6:22 PM EDT) Pathologist [facility] proBNP, N-terminal 12,046(H) <125 pg/mL 01/18/2025 7:11 PM EDT [facility] Blood Blood specimen / Unknown 01/18/2025 6:22 PM EDT 01/18/2025 6:42 PM EDT us Vinicio Bedolla MD LAB BLOOD ORDERABLES Final Re sult Performing Organization Address [facility] [place] [address], [address] [address] * XR Chest 1 view-Portable (01/18/2025 4:47 [...] Detected Not Detected 01/18/2025 6:31 PM EDT [facility] Influenza B Virus Not Detected Not Detected 01/18/2025 6:31 PM EDT [facility] SARS-CoV-2 Not Detected Not Detected 01/18/2025 6:31 PM EDT [facility] Respiratory Syncytial Virus Not Detected Not Detected 01/18/2025 6:31 PM EDT [facility] Comment Negative results do not preclude SARS-CoV-2, Influenza or RSV infection and should not be used as the sole basis for treatment or other patient management decisions. 01/18/2025 6:31 PM EDT [facility] Swab, Nasopharyngeal Nasopharyngeal swab / Unknown 01/18/2025 4:43 PM EDT 01/18/2025 5:27 PM EDT Vinicio Bedolla MD MICROBIOLOGY - GENERAL ORDERA BLES Final Result [address] [address], [address] [address] * Nasal MRSA Screen, PCR (01/18/2025 4:43 PM EDT) MRSA Result Not Detected Not Detected 7:03 PM EDT [facility] Comment:Performed by the Xpe rt MRSA NxG Assay Swab, Anterior Nares Specimen from nose / Unknown 01/18/2025 4:43 PM EDT 01/18/2025 5:30 PM EDT Vinicio Bedolla MD MICROBIOLOGY - GENERAL ORDERA BLES Final Result Performing Organization Address City/[facility]/ZIP Co de Phone Number [address] [address], [address] [address] * Urinalysis with Reflex to Microscopic (01/18/2025 4:43 PM EDT) Color Straw 01/18/2025 5:48 PM EDT [facility] Clarity Clear 01/18/2025 5:48 PM EDT [facility] Specific Ulysses 1.014 1.003 - 1.030 01/18/2025 5:48 PM EDT [facility] pH 6.0 5.0 - 8.0 01/18/2025 5:48 PM EDT [facility] Leukocyte Esterase Negative Negative 01/18/2025 5:48 PM EDT [facility] Nitrite Negative Negative 01/18/2025 5:48 PM EDT [facility] Protein Negative Negative 01/18/2025 5:48 PM EDT [facility] Glucose 0 0 - 99 mg/dL 01/18/2025 5:48 PM EDT [facility] Ketones Negative Negative 01/18/2025 5:48 PM EDT [facility] Blood Negative Negative 01/18/2025 5:48 PM EDT [facility] Bilirubin Negative Negative 01/18/2025 5:48 PM EDT [facility] WBC 0 0 - 4 per hpf 01/18/2025 5:48 PM EDT [facility] RBC 1 0 - 4 per hpf 01/18/2025 5:48 PM EDT [facility] Urine Urine specimen obtained by clean catch procedure / Unknown 01/18/2025 4:43 PM EDT 01/18/2025 5:31 PM EDT Vinicio Bedolla MD URINE ORDERABLES Final Result Performing Organization Address City/[facility]/ZIP Co de Phone Number [address] [address], [place] [address] [place] [address] * ECHOCARDIOGRAM COMPREHENSIVE WITH CONTRAST (01/18/2025 4:39 [...] PM EDT) Systolic BP 119 mmHg EKG [facility] Diastolic BP 58 mmHg EKG [facility] Ventricular rate 67 BPM EKG [facility] Atrial rate 67 BPM EKG [facility] P-R interval 126 ms EKG [facility] QRS duration 76 ms EKG [facility] Q-T interval 450 ms EKG [facility] QTC calculation (Bazett) 475 ms EKG [facility] P axis 14 degrees EKG [facility] R axis 49 degrees EKG [facility] T axis 38 degrees EKG [facility] 01/18/2025 3:53 PM EDT Narrative EKG [facility] - 01/18/2025 3:54 PM EDT Normal sinus rhythm with sinus arrhythmia Normal ECG When compared with ECG of 18-Jan-2025 10:10, (unconfirmed) No significant change was found Confirmed by MD Velazco Usama ([id number]) on 01/18/2025 3:54:13 PM Procedure Note Bobby Velazco MD - 01/19/2025 Normal sinus rhythm with sinus arrhythmia Normal ECG When compared with ECG of 18-Jan-2025 10:10, (unconfirmed) No significant change was found Confirmed by MD Velazco Usama ([id number]) on 01/18/2025 3:54:13 PM us Bobby Schneider MD ECG ORDERABLES Final Result [facility] * POCT Glucose, Fingerstick (01/18/2025 3:44 PM EDT) POC Glucose 96 65 - 99 mg/dL 01/18/2025 3:48 PM EDT Blood specimen / Unknown 01/18/2025 3:44 PM EDT 01/18/2025 3:48 PM EDT us Monica Agrawal MD POINT OF CARE TEST [facility] Final Result HOSPITAL LAB See Below * Heparin Assay (Anti-Xa) (01/18/2025 1:38 PM EDT) [facility] Anti Xa 0.69 IU/mL 01/18/2025 2:02 PM EDT [facility] Comment: (NOTE) Heparin Thromboembolic/Standard/Full Dose Protocol: [...] IV HEPARIN, UNFRACTIONATED 01/18/2025 1:13 PM EDT [facility] Blood Blood specimen / Unknown 01/18/2025 1:38 PM EDT 01/18/2025 1:42 PM EDT Monica Agrawal MD LAB BLOOD ORDERABLES Fi nal Result Performing Organization Address [facility] Co de Phone Number [address] [address], [address] [address] * (ABNORMAL) High Sensitivity Troponin T (01/18/2025 12:33 PM EDT) High Sensitivity Troponin T 542(HH) <15 ng/L 01/18/2025 1:36 PM EDT [facility] Comment:Recurring Critical R esult. Previously phoned. Delta (Change) 105(H) <3 01/18/2025 1:36 PM EDT [facility] Comment:Decreased 01/18/2025 12:3 3 PM EDT 01/18/2025 1:03 PM EDT Deena Guajardo MD LAB BLOOD ORDERABL ES Final Result Performing Organization Address [facility]/State/ZIP Co de Phone Number [address] [address], [address] [address] * (ABNORMAL) Lactic Acid, Q2h X 2 (01/18/2025 12:33 PM EDT) Lactic Acid 2.7(H) 0.5 - 1.9 mmol/L 01/18/2025 1:36 PM EDT [facility] Blood Blood specimen / Unknown 01/18/2025 12:33 PM EDT 01/18/2025 1:03 PM EDT us Deena Guajardo MD LAB BLOOD ORDERABL ES Final Result [address] [address], [address] [address] * (ABNORMAL) Partial Thromboplastin Time (PTT) (01/18/2025 10:39 AM EDT) Anticoagulant IV HEPARIN, UNFRACTIONATED 01/18/2025 10:11 AM EDT [facility] Partial Thromboplastin Time (PTT) 67(H) 25 - 36 seconds 01/18/2025 11:39 AM T [facility] Blood Blood specimen / Unknown 01/18/2025 10:39 AM EDT 01/18/2025 11:17 AM EDT us Deena Guajardo MD LAB BLOOD ORDERABL ES Final Result Performing Organization Address City/[facility]/ZIP Co de Phone Number [address] [address], [place] [address] * Protime-INR (01/18/2025 10:39 AM EDT) Anticoagulant IV HEPARIN, UNFRACTIONATED 01/18/2025 10:11 AM EDT [facility] Prothrombin Time (PT) 12.5 10.0 - 13.5 seconds 01/18/2025 11:39 AM EDT [facility] INR 1.1 01/18/2025 11:39 AM EDT [facility] Comment:INR Therapeutic Rang es: Standard dose anticoagulant 2.0 to 3.0, High dose anticoagulant 2.5-3.5. Blood Blood specimen / Unknown 01/18/2025 10:39 AM EDT 01/18/2025 11:17 AM EDT us Deena Guajardo MD LAB BLOOD ORDERABL ES Final Result Performing Organization Address [facility]/ZIP Co de Phone Number [address] [address], [address] [address] * (ABNORMAL) Troponin T, High Sensitivity - STAT and in 1 hour (01/18/2025 10:39 AM EDT) High Sensitivity Troponin T 647(HH) <15 ng/L 01/18/2025 12:09 PM EDT [facility] Delta (Change) NO PREVIOUS RESULT <3 01/18/2025 12:09 PM EDT [facility] Blood Blood specimen / Unknown 01/18/2025 10:39 AM EDT 01/18/2025 11:17 AM EDT Deena Guajardo MD LAB BLOOD ORDERABL ES Final Result Performing Organization Address [facility] Co de Phone Number [address] [address], [address] [address] * (ABNORMAL) Magnesium (01/18/2025 10:39 AM EDT) Pathologist [facility] Magnesium 1.5(L) 1.6 - 2.7 mg/dL 01/18/2025 12:09 PM EDT [facility] Blood Blood specimen / Unknown 01/18/2025 10:39 AM EDT 01/18/2025 11:17 AM EDT Deena Guajardo MD LAB BLOOD ORDERABL ES Final Result Performing Organization Address [facility] Co de Phone Number [address] [address], [address] [address] * (ABNORMAL) Comprehensive Metabolic Panel (01/18/2025 10:39 AM EDT) Glucose 112(H) 65 - 99 mg/dL 01/18/2025 12:09 PM EDT [facility] Comment:Fasting: <100 mg/dL, Non-Fasting: <200 mg/dL (ADA 2005) Blood Urea Nitrogen (BUN) 25(H) 8 - 21 mg/dL 01/18/2025 12:09 PM [facility] Creatinine 0.9 0.4 - 1.1 mg/dL 01/18/2025 12:09 PM [facility] eGFR 69 >59 01/18/2025 12:09 PM [facility] Comment:CKD-EPI (2020) in mL /min/1.73 sq meters. Sodium 141 136 - 145 mmol/L 01/18/2025 12:09 PM [facility] Potassium 3.8 3.4 - 5.3 mmol/L 01/18/2025 12:09 PM [facility] Chloride 106 98 - 107 mmol/L 01/18/2025 12:09 PM [facility] CO2 19(L) 22 - 33 mmol/L 01/18/2025 12:09 PM [facility] Calcium 8.8 8.7 - 10.5 mg/dL 01/18/2025 12:09 PM [facility] Alkaline Phosphatase 110 32 - 122 U/L 01/18/2025 12:09 PM [facility] Aspartate Aminotrans (AST) 46 10 - 50 U/L 01/18/2025 12:09 PM [facility] Alanine Aminotrans (ALT) 21 10 - 50 U/L 01/18/2025 12:09 PM [facility] Bilirubin, Total 0.5 0.2 - 1.0 mg/dL 01/18/2025 12:09 PM [facility] Protein, Total 6.6 6.3 - 8.3 g/dL 01/18/2025 12:09 PM [facility] Albumin 3.5 3.4 - 4.8 g/dL 01/18/2025 12:09 PM [facility] BUN/Creatinine Ratio 28(H) 10.0 - 25.0 Ratio 01/18/2025 12:09 PM [facility] Globulin 3.1 1.5 - 3.9 g/dL 01/18/2025 12:09 PM [facility] Albumin/Globulin Ratio 1.1 1.0 - 3.0 Ratio 01/18/2025 12:09 PM [facility] Anion Gap 16 7 - 17 01/18/2025 12:09 PM [facility] Blood Blood specimen / Unknown 01/18/2025 10:39 AM EDT 01/18/2025 11:17 AM EDT Deena Guajardo MD LAB BLOOD ORDERABL ES Final Result [address] [address], [address] [address] * (ABNORMAL) Complete Blood Count, with Differential (01/18/2025 10:39 AM EDT) White Blood Cell Count 20.1(H) 4.0 - 11.0 Thou/uL 01/18/2025 11:26 AM [facility] Platelet Count 219 150 - 450 Thou/uL 01/18/2025 11:26 AM [facility] Hemoglobin 11.1(L) 11.7 - 15.7 g/dL 01/18/2025 11:26 AM [facility] Hematocrit 37.2 35.0 - 47.0 % 01/18/2025 11:26 AM [facility] Red Blood Cell Count 3.64(L) 4.00 - 5.40 Mil/uL 01/18/2025 11:26 AM [facility] MCV 102(H) 80 - 100 fL 01/18/2025 11:26 AM [facility] MCH 30.5 27.0 - 31.0 pg 01/18/2025 11:26 AM [facility] MCHC 29.8(L) 30.0 - 36.0 g/dL 01/18/2025 11:26 AM [facility] RDW 15.0(H) 11.5 - 14.5 % 01/18/2025 11:26 AM [facility] MPV 10.1 7.5 - 12.5 fL 01/18/2025 11:26 AM [facility] Neutrophils Auto 90.1 % 01/19/20 11:26 AM [facility] Immature Granulocytes 0.6 % 01/18/2025 11:26 AM [facility] Lymphocytes Auto 3.8 % 01/19/20 11:26 AM [facility] Monocytes Auto 5.2 % 01/18/2025 11:26 AM [facility] Eosinophils Auto 0.0 % 01/19/20 11:26 AM [facility] Basophils Auto 0.3 % 01/18/2025 11:26 AM [facility] Abs Neutrophils Auto 18.10(H) 2.00 - 7.50 Thou/uL 01/18/2025 11:26 AM [facility] Abs Immature Granulocytes 0.12(H) 0.00 - 0.10 Thou/uL 01/18/2025 11:26 AM [facility] Abs Lymphocytes Auto 0.77(L) 1.50 - 4.50 Thou/uL 01/18/2025 11:26 AM [facility] Abs Monocytes Auto 1.05 0.20 - 1.50 Thou/uL 01/18/2025 11:26 AM [facility] Abs Eosinophils Auto 0.00 0.00 - 0.70 Thou/uL 01/18/2025 11:26 AM [facility] Abs Basophils Auto 0.07 0.00 - 0.20 Thou/uL 01/18/2025 11:26 AM [facility] Blood Blood specimen / Unknown 01/18/2025 10:39 AM EDT 01/18/2025 11:17 AM EDT Deena Guajardo MD LAB BLOOD ORDERABL ES Final Result [address] [address], [address] [address] * Blood Culture (01/18/2025 10:39 AM EDT) Culture Sterile after 5 days 01/23/2025 7:10 AM [facility] Blood Blood specimen / Unknown 01/18/2025 10:39 AM EDT 01/18/2025 11:07 AM EDT Comment:Blood us Deena Guajardo MD LAB BLOOD ORDERABL ES Final Result Performing Organization Address City/[facility]/ZIP Co de Phone Number [facility] [address] [place] [address], * (ABNORMAL) Lactic Acid, Q2h X 2 (01/18/2025 10:39 AM EDT) Lactic Acid 4.4(HH) 0.5 - 1.9 mmol/L 01/18/2025 11:44 AM EDT [facility] Blood Blood specimen / Unknown 01/18/2025 10:39 AM EDT 01/18/2025 11:18 AM EDT Deena Guajardo MD LAB BLOOD ORDERABL ES Final Result Performing Organization Address [facility] Co de Phone Number [facility] [address] [place] [address], [place] [facility] [address] [place] [address] * 10 Min ECG 12 lead (01/18/2025 10:10 AM EDT) Ventricular rate 69 BPM EKG [facility] Atrial rate 69 BPM EKG [facility] P-R interval 132 ms EKG [facility] QRS duration 76 ms EKG [facility] Q-T interval 432 ms EKG [facility] QTC calculation (Bazett) 463 ms EKG [facility] P axis 1 degrees EKG [facility] R axis 12 degrees EKG [facility] T axis 34 degrees EKG [facility] 01/18/2025 10:1 0 AM EDT Narrative EKG [facility] - 01/18/2025 4:00 PM EDT Normal sinus rhythm Normal ECG No previous ECGs available Confirmed by MD Velazco Usama ([id number]) on 01/18/2025 4:00:16 PM Procedure Note Bobby Velazco MD - 01/18/2025 Normal sinus rhythm Normal ECG No previous ECGs available Confirmed by MD Juan A, [facility] ([id number]) on 01/18/2025 4:00:16 PM us Josemanuel Ortega MD ECG ORDERABLES Final Result EKG [facility] documented in this encounter Visit Diagnoses [...] For 2 doses, All antimicrobials used at [facility] require an indication. Please complete the following documentation. Bacterial Infection Suspected, Type of Therapy: New Therapy, Indication: Pneumonia New Bag 01/19/2025 8:39 AM EDT 500 mg 166.7 mL/hr cefepime (MAXIPIME) 2 g in sodium chloride-MBP (NS) 100 mL IVPB-MBP 2 g, Intravenous, Administer over 3 Hours, Every 8 hours, First dose on Sat01/18/25 at 1500, All antimicrobials used at [facility] require an indication. Please complete the following documentation. Bacterial Infection Suspected, Type of Therapy: New Therapy, Indication: Sepsis New Bag 01/19/2025 4:29 AM EDT 2 g 33.3 mL/hr cefTRIAXone (ROCEPHIN) 1 g in sodium chloride-MBP (NS) 100 mL IVPB-MBP 1 g, Intravenous, at 200 mL/hr, Every 24 hours, First dose on Sat01/19/25 at 1230, For 2 doses, All antimicrobials used at [facility] require an indication. Please complete the following [...] ceftraixone today 01/19, All antimicrobials used at [facility] require an indication. Please complete the following documentation. Bacterial Infection Suspected, Type of Therapy: New Therapy, Indication: Bacteremia New 01/19/2025 12:53 PM EDT 1 g 200 mL/hr cefTRIAXone (ROCEPHIN) 2 g in sodium chloride-MBP (NS) 100 mL IVPB-MBP 2 g, Intravenous, at 200 mL/hr, Every 24 hours, First dose (after last modification) on Sat01/20/25 at 1100, All antimicrobials used at [facility] require an indication. Please complete the following [...] For 1 dose, All antimicrobials used at [facility] require an indication. Please complete the following [...] Sat01/20/25 at 1100, All antimicrobials used at [facility] require an indication. Please complete the following [...] documented as of this encounter Care Teams Shovel Operator Relationship Specialty Start Date End Date Kenisha Ozuna MD [address] [place] [address] [place] [phone] PCP - General Internal Medicine 01/19/25 documented as of this encounter
--- OUTSIDE RECORDS SUMMARY | 2025-01-26 13:03 | XMS_ITS | Encounter Summary ---
Author Organization [facility] Address [address] [place] [address] Care Team Providers Care Chimney Builder Helper Name Role Phone Kenisha Ozuna MD Primary Care Provider [phone] Encounter Details Date Type Department Care Team (Late st Contact Info) Description 01/25/2025 Orders Only [facility] Heart & [facility] [place] [facility] [address] [facility] [address] [place] [address] Marlyn Luevano, MALA [address] [facility] [address] [place], [place] [id number] Social History Tobacco Use Types Packs/Day Years Used Date Smoking Tobacco: Never Smokeless Tobacco: Never Alcohol Use Standard Drinks/Week Comments Not Currently 0 (1 standard drink = 0.6 oz pur e alcohol) [facility] Utilities Answer Date Recorded In the past 12 months has [employer], gas, oil, or water [employer] threatened to shut off services in your [...] any time in the past 12 [facility], were you homeless or living in a residential (including now)? No 01/19/2025 Comments Unknown Sex [...] Info) Description 01/29/2025 11:00 AM EDT Infusion [facility] Heart & Vascular [place] [facility] [address] [place] [phone] documented as of this encounter Visit Diagnoses Not on filedocumented in this encounter Care Teams Chimney Builder Helper Relationship Specialty Start Date End Date Kenisha Ozuna MD [address] [place] [id number] PCP - General Internal Medicine 01/19/25 documented as of this encounter
--- OUTSIDE RECORDS SUMMARY | 2025-01-26 13:03 | XMS_ITS | Encounter Summary ---
Author Organization [facility] Address [address] [place] [address] Care Team Providers Care Screen Print Operator Name Role Phone Kenisha Ozuna MD Primary Care Provider [phone] Encounter Details Date Type Department Care Team (Late st Contact Info) Description 01/26/2025 Orders Only [address] [address] Dante Ferrara MD [address] [address] Acute decompensated heart failure (HCC) Social History Tobacco Use Types Packs/Day Years Used Date Smoking Tobacco: Never Smokeless Tobacco: Never Alcohol Use Standard Drinks/Week Comments Not Currently 0 (1 standard drink = 0.6 oz pur e alcohol) [facility] Utilities Answer Date Recorded In the past 12 months has [employer], gas, oil, or water [employer] threatened to shut off services in your [...] were you homeless or living in a senior care (including now)? No 01/19/2025 Comments Unknown Sex [...] Info) Description 01/29/2025 11:00 AM EDT Infusion [facility] Heart & Vascular [place] [facility] [address] [place] [address] documented as of this encounter Visit Diagnoses Diagnosis Acute decompensated heart failure (HCC) documented in this encounter Care Teams Screen Print Operator Relationship Specialty Start Date End Date Kenisha Ozuna MD [address] [place] [address] [place] [phone] PCP - General Internal Medicine 01/19/25 documented as of this encounter
[2025-01-26 14:07] LABS: MANUAL DIFF FLAG NO
[2025-01-26 14:16] LABS: Basophils Absolute Auto 0.1 X10*3/uL (0.0-0.2); Basophils Percent Auto 2.2 % (0-2); Eosinophils Absolute Auto 0.4 X10*3/uL (0.0-0.4); Hematocrit 37.4 % (37.0-47.0); Hemoglobin 11.7 g/dl (12.0-16.0); Imm Gran Abs Auto 0.01 X10*3/uL (0.00-0.03); Imm Gran Pct Auto 0.2 % (0.0-0.4); Lymphocytes Absolute Auto 1.8 X10*3/uL (1.2-4.9); Lymphocytes Percent Auto 28.9 % (20-40); Mean Corpuscular HGB Conc 31.3 g/dl (31.0-35.0); Mean Corpuscular Hemoglobin 30.8 pg (27.0-33.0); Mean Corpuscular Volume 98.4 fL (80.0-98.0); Mean Platelet Volume 11.2 fL (9.4-12.3); Monocytes Absolute Auto 1.1 X10*3/uL (0.1-1.2); Monocytes Percent Auto 16.6 % (2-11); Neutrophils Absolute Auto 2.9 x10*3/uL (2.0-8.3); Neutrophils Percent Auto 46.1 % (45-73); Platelet Count 279 X10*3/uL (160-400); Red Cell Distribution Width 14.6 % (11.0-16.0); White Blood Count 6.4 X10*3/uL (4.8-10.8)
[2025-01-26 14:38] LABS: Estimated Average Glucose 103 mg/dL; Hemoglobin A1C 102.4253 umol/L; Hemoglobin A1c % 5.2 % (<6.0); Total Hemoglobin (HGBA1C) 3077.9521 umol/L
[2025-01-26 14:59] LABS: Alanine Aminotransferase 16 U/L (0-31); Alkaline Phosphatase 95 U/L (39-117); Anion Gap 13 (12-20); Aspartate Amino Transferase 32 U/L (5-31); Bilirubin Direct 0.2 mg/dL (0.0-0.5); Bilirubin Total 0.5 mg/dL (0.0-1.0); Blood Urea Nitrogen 37 mg/dL (9-16); Calcium 9.8 mg/dL (8.4-10.2); Carbon Dioxide 28 mmol/L (22-29); Chloride 103 mmol/L (96-108); Cholesterol 139 mg/dL (<200); Estimated Glomerular Filt Rate 40; Glucose Random 100 mg/dL (60-115); HDL Cholesterol 42 mg/dL (>40); Iron 62 mcg/dL (30-160); LDL Cholesterol Calculated 57 mg/dL (<100); Percent Iron Saturation 28 % (15-50); Sodium 140 mmol/L (135-145); TSH reflex Free T4 2.82 uIU/mL (0.32-4.0); Total Iron Binding Capacity 224 mcg/dL (228-428); Total Protein 7.2 g/dL (6.5-8.0); Triglycerides 204 mg/dL (<150); Unsaturated Iron Binding 162 ug/dL
== END 2025-01-26 11:51 | disposition home or self-care (01) ==
LOC: HO.10HDL 11:50
PROVIDERS: Visit Provider Physician Assistant
DX: Z76.89 Persons encountering health services in other specified circumstances (principal); I48.91 Unspecified atrial fibrillation; I10 Essential (primary) hypertension; L30.9 Dermatitis, unspecified; E78.00 Pure hypercholesterolemia, unspecified; D64.9 Anemia, unspecified; Z79.01 Long term (current) use of anticoagulants; Z79.899 Other long term (current) drug therapy; Z86.718 Personal history of other venous thrombosis and embolism; Z86.19 Personal history of other infectious and parasitic diseases; Z51.89 Encounter for other specified aftercare
CPT/HCPCS: 36415; 80048; 80061; 80076; 83036; 83540; 84443; 85025; 99202

== ENCOUNTER 2025-02-25 09:40 | Outpatient (AMB) | payer MEDICARE, OTHER, SELFPAY ==
[2025-02-25 09:22] VITALS: BP 128/74; PULSE 83; TEMP 36.3; O2SAT 97
--- NOTE | 2025-02-25 09:22 | A.OFFPC_ITS ---
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 Accompanied by: Self / Same As Patient Allergies hydroxychloroquine (Plaquenil) Allergy (Severe, Verified 02/25/25 09:23) Rash codeine (Codeine) Allergy (Intermediate, Verified 02/25/25 09:23) NAUSEA & VOMITING methotrexate Allergy (Intermediate, Verified 02/25/25 09:23) Diarrhea oxycodone Allergy (Intermediate, Verified 02/25/25 09:23) dizziness, nausea, vomiting tramadol Allergy (Intermediate, Verified 02/25/25 09:23) Diarrhea metronidazole Allergy (Unknown, Verified 02/25/25 09:23) Vomiting hydromorphone (From Dilaudid) Adverse Reaction (Verified 02/25/25 09:23) Vomiting Tobacco use date assessed: 02/25/25 Fall risk assessment: No Falls in past year Last assessed Fall Risk: 02/25/25 Dental Screening Dental Screen Date: 02/25/25 Did you have a dental visit in the last 12 months?: Yes Did you have a dental problem in the last 6 months where you did not have access to dental care?: No PFSH Medical History Congestive heart failure Atrial fibrillation Septic shock Group B streptococcal bacteriuria IBS (irritable bowel syndrome) History of cellulitis Elevated cholesterol HTN (hypertension) PONV (postoperative nausea and vomiting) Colon cancer screening Eczema DVT (deep venous thrombosis) Diarrhea Cough Primary osteoarthritis, right hand Primary osteoarthritis, left hand Gout Polymyositis Surgical History Hx of shoulder surgery (11/22/23) History of back surgery (~2019) Hx of endoscopy H/O colonoscopy (~02/11/19) Social History Are you a primary career and transition teacher to a significant other at home: No Do you presently have visiting nurse or other home services: No Alcohol intake: never Patient Tobacco Use Status: Never used Tobacco e-Cigarette/Vaping Use: Never Used Current occupational status: retired and disabled 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 1. Little interest or pleasure in doing things: not at all 2. Feeling down, depressed, or hopeless: not at all 3. Trouble falling or staying asleep, or sleeping too much: not at all 4. Feeling tired or having little energy: not at all 5. Poor appetite or overeating: not at all 6. Feeling bad about yourself - or that you are a failure or have let yourself or your family down: not at all 7. Trouble concentrating on things, such as reading the newspaper or watching television: not at all 8. Moving or speaking so slowly that other people could have noticed. Or the opposite - being so fidgety or restless that you have been moving around a lot more than usual: not at all 9. Thoughts that you would be better off or of hurting yourself in some way: not at all Total score: 0 Source: Developed by Drs. Broderick Paez, Camryn Hadley, Porfirio Acosta and colleagues, with an educational vero from [employer]. Thrive Questionnaire Date Thrive assessed: 02/25/25 I am a: Patient Within the past 12 months, did the food you bought not last and you didn't have the money to get more?: Never true Within the past 12 months, did you worry whether your food would run out before you got money to buy more?: Never true Do you have trouble paying for medicines?: No Do you have trouble getting transportation to medical appointments?: No Do you have trouble paying your heating and electricity bill?: No Do you have trouble taking care of your child, family member or friend?: No Do you have trouble with day-to-day activities such as bathing, preparing meals, shopping, managing finances, etc.?: No Are you currently unemployed and looking for a job?: No Are you interested in more education?: No THRIVE Score: 0 AUDIT C Alcohol Use Questionnaire (AUDIT-C) 1. How often do you have a drink containing alcohol?: Never 3. How often do you have six or more drinks on one occasion?: Never Total Score: 0 GHANSHYAM-7 AMB Questionnaire GHANSHYAM-7 Date GHANSHYAM - 7 assessed: 02/25/25 Feeling nervous, anxious, or on edge: 0 = Not at all Not being able to stop or control worryin = Not at all Worrying too much about different things: 0 = Not at all Trouble relaxin = Not at all Being so restless that it is hard to sit still: 0 = Not at all Becoming easily annoyed or irritable: 0 = Not at all Feeling afraid as if something awful might happen: 0 = Not at all Total GHANSHYAM-7 score (0-4 normal; 5-9 mild; 10-14 moderate; 15-21 severe): 0 Source: Developed by Drs. Broderick Paez, Camryn Hadley, Porfirio Acosta and colleagues, with an educational vero from [employer]. Physical exam (Primary Care) Tobacco/Smoking Status: Tobacco use Status Patient Tobacco Use Status Never used Tobacco 11/22/23 16:03 e-Cigarette/Vaping Use Never Used 08/20/23 14:01 Coding
--- NOTE | 2025-02-25 09:44 | A.OFFPC_ITS ---
Vital Signs 02/25/25 09:22 Height 5 ft 1 in Weight 159 lb BMI 30.0 BP 128/74 Blood Pressure Location Lt brachial Position Sitting Pulse 83 Pulse Source Pulse Oximeter Temp 97.4 F Temp Source Axillary Pulse Oximetry (%) 97 Oxygen Delivery Method Room Air Intake Visit Reasons: Routine - see comments Internal Medicine Doctor Required: No Accompanied by: Self / Same As Patient Allergies hydroxychloroquine (Plaquenil) Allergy (Severe, Verified 02/25/25 09:23) Rash codeine (Codeine) Allergy (Intermediate, Verified 02/25/25 09:23) NAUSEA & VOMITING methotrexate Allergy (Intermediate, Verified 02/25/25 09:23) Diarrhea oxycodone Allergy (Intermediate, Verified 02/25/25 09:23) dizziness, nausea, vomiting tramadol Allergy (Intermediate, Verified 02/25/25 09:23) Diarrhea metronidazole Allergy (Unknown, Verified 02/25/25 09:23) Vomiting hydromorphone (From Dilaudid) Adverse Reaction (Verified 02/25/25 09:23) Vomiting Medication List - Last Reconciled 02/25/25 by Kenisha Ozuna MD acetaminophen ER 650 mg PO Q8H PRN allopurinol 100 mg PO DAILY apixaban (Eliquis) 5 mg PO BID atorvastatin 20 mg PO DAILY dapagliflozin propanediol (Farxiga) 10 mg PO DAILY furosemide 40 mg PO BID leflunomide 10 mg PO DAILY loperamide (Imodium A-D) 2 mg PO QID PRN metoprolol tartrate 50 mg PO DAILY pantoprazole 40 mg PO DAILY vitamin B complex (B Complex-Vitamin B12 tablet) 1 tab PO DAILY [Vitamin D3 2,000 multiple units PO DAILY] Tobacco use date assessed: 02/25/25 Fall risk assessment: 1 Fall in past year Last assessed Fall Risk: 02/25/25 Dental Screening Dental Screen Date: 02/25/25 Did you have a dental visit in the last 12 months?: Yes Did you have a dental problem in the last 6 months where you did not have access to dental care?: No HPI HPI Comments History of Present Illness Details 69-year-old female with history of rheum atoid arthritis, hyperlipidemia, eczema, history of gout, history of DVT, CHF Patient with recent hospitalization at after transfer from [facility]. Cardiogrenic versus septic shock. CV: Follows with Dr Pastrana. Echocardiogram showed reduced LV systolic function with EF 45% and severe hypo to akinesis of the mid anterior, mid anterolateral, mid anteroseptal, and mid in the lateral segments. This will be repeated. She did undergo cardiac catheterization which was negative for any significant coronary artery disease. During stay, she had also developed new onset atrial fibrillation. She was discharged on 5 mg of Eliquis twice daily. Eczema: Awaiting dermatology consultation. She does have history of strep B cellulitis from wound culture taken from legs. 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 She is on leflunomide. She has si gnificant neuropathy, numbness, tingling from the medications. She is scheduled to see rheumatology but not until Oct [address] Garrett ROS: ROS CONSTITUTIONAL: Denies weight loss, fever and chills. HEENT: Denies changes in vision and hearing. RESPIRATORY: Denies SOB and cough. CV: Denies palpitations and CP GI: Denies abdominal pain, nausea, vomiting and diarrhea. : Denies dysuria and urinary frequency. MSK: Denies new myalgia and joint pain. SKIN: Denies rash and pruritus. NEUROLOGICAL: Denies headache PSYCHIATRIC: Denies recent changes in mood. PHYSICAL EXAM: GENERAL: Alert and oriented x 3. NAD EYES: EOMI. Anicteric. HENT: Moist mucous membranes. No scleral icterus. No cervical lymphadenopathy. LUNGS: Clear to auscultation bilaterally. CARDIOVASCULAR: Regular rate and rhythm. No murmur. No JVD. ABDOMEN: Soft, non-tender +bs EXTREMITIES: No edema. Non-tender. SKIN: No rashes or lesions. Warm. NEUROLOGIC: No focal neurological deficits. CN II-XII grossly intact PSYCHIATRIC: Cooperative. Appropriate mood and affect [facility] Medical History Congestive heart failure Atrial fibrillation Septic shock Group B streptococcal bacteriuria IBS (irritable bowel syndrome) History of cellulitis Elevated cholesterol HTN (hypertension) PONV (postoperative nausea and vomiting) Colon cancer screening Eczema DVT (deep venous thrombosis) Diarrhea Cough Primary osteoarthritis, right hand Primary osteoarthritis, left hand Gout Polymyositis Surgical History Hx of shoulder surgery (11/22/23) History of back surgery (~2019) Hx of endoscopy H/O colonoscopy (~02/11/19) Family History Mother No problems noted. Father No problems noted. 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 1. Little interest or pleasure in doing things: not at all 2. Feeling down, depressed, or hopeless: not at all 3. Trouble falling or staying asleep, or sleeping too much: not at all 4. Feeling tired or having little energy: not at all 5. Poor appetite or overeating: not at all 6. Feeling bad about yourself - or that you are a failure or have let yourself or your family down: not at all 7. Trouble concentrating on things, such as reading the newspaper or watching television: not at all 8. Moving or speaking so slowly that other people could have noticed. Or the opposite - being so fidgety or restless that you have been moving around a lot more than usual: not at all 9. Thoughts that you would be better off or of hurting yourself in some way: not at all Total score: 0 Depression Screening Interpretation: Negative Depression Screening Done: Yes 64387 - PHQ-9 Billing: Yes Source: Developed by Drs. Broderick Paez, Camryn Hadley, Porfirio Acosta and colleagues, with an educational vero from [employer]. Thrive Questionnaire Date Thrive assessed: 02/25/25 I am a: Patient Within the past 12 months, did the food you bought not last and you didn't have the money to get more?: Never true Within the past 12 months, did you worry whether your food would run out before you got money to buy more?: Never true Do you have trouble paying for medicines?: No Do you have trouble getting transportation to medical appointments?: No Do you have trouble paying your heating and electricity bill?: No Do you have trouble taking care of your child, family member or friend?: No Do you have trouble with day-to-day activities such as bathing, preparing meals, shopping, managing finances, etc.?: No Are you currently unemployed and looking for a job?: No Are you interested in more education?: No THRIVE Score: 0 AUDIT C Alcohol Use Questionnaire (AUDIT-C) 1. How often do you have a drink containing alcohol?: Never 3. How often do you have six or more drinks on one occasion?: Never Total Score: 0 GHANSHYAM-7 AMB Questionnaire GHANSHYAM-7 Date GHANSHYAM - 7 assessed: 02/25/25 Feeling nervous, anxious, or on edge: 0 = Not at all Not being able to stop or control worryin = Not at all Worrying too much about different things: 0 = Not at all Trouble relaxin = Not at all Being so restless that it is hard to sit still: 0 = Not at all Becoming easily annoyed or irritable: 0 = Not at all Feeling afraid as if something awful might happen: 0 = Not at all Total GHANSHYAM-7 score (0-4 normal; 5-9 mild; 10-14 moderate; 15-21 severe): 0 Source: Developed by Drs. Broderick Paez, Camryn Hadley, Porfirio Acosta and colleagues, with an educational vero from [employer]. Physical exam (Primary Care) Vital Signs: Last Vital Signs Temp 97.4 F 02/25/25 09:22 Pulse 83 02/25/25 09:22 BP 128/74 02/25/25 09:22 Pulse Ox 97 02/25/25 09:22 Oxygen Delivery Method Room Air 02/25/25 09:22 BMI result Body Mass Index 30.0 Tobacco/Smoking Status: Tobacco use Status Tobacco use date assessed 02/25/25 02/25/25 09:48 Patient Tobacco Use Status Never used Tobacco 02/25/25 09:48 e-Cigarette/Vaping Use Never Used 02/25/25 09:48 PHQ-9: PHQ-9 Score PHQ-9: Total score 0 02/25/25 13:32 Depression Screening Interpretation: Negative Thrive Assessment: Date of Thrive Assessment Date Thrive assessed 02/25/25 02/25/25 09:48 Coding Level of Care Code Est Pt Level 4 (21045) Complex EM visit Add On G2211 Diagnoses Chronic congestive heart failure, unspecified heart failure type I50.9 Heart failure type: unspecified Heart failure chronicity: chronic Paroxysmal atrial fibrillation I48.0 Atrial fibrillation type: paroxysmal Primary hypertension I10 Hypertension type: primary hypertension Rheumatoid arthritis involving multiple sites, unspecified whether rheumatoid factor present M06.9 Rheumatoid arthritis location: multiple sites Rheumatoid factor presence: unspecified presence Severe eczema L30.9 Additional Codes PHQ-9 - 59617 - PHQ-9 Billing: Yes ([id number]) Assessment & Plan Assessment & Plan (1) Congestive heart failure: Code(s): I50.9 - Heart failure, unspecified Category: Medical Qualifiers: Heart failure type: unspecified Heart failure chronicity: chronic Qualified Code(s): I50.9 - Heart failure, unspecified (2) Atrial fibrillation: Code(s): I48.91 - Unspecified atrial fibrillation Category: Medical Qualifiers: Atrial fibrillation type: paroxysmal Qualified Code(s): I48.0 - Paroxysmal atrial fibrillation (3) HTN (hypertension): Code(s): I10 - Essential (primary) hypertension Category: Medical Qualifiers: Hypertension type: primary hypertension Qualified Code(s): I10 - Essential (primary) hypertension (4) Rheumatoid arthritis: Code(s): M06.9 - Rheumatoid arthritis, unspecified Category: Medical Qualifiers: Rheumatoid arthritis location: multiple sites Rheumatoid factor presence: unspecified presence Qualified Code(s): M06.9 - Rheumatoid arthritis, unspecified (5) Severe eczema: Code(s): L30.9 - Dermatitis, unspecified Category: Medical Plan 69 year old for follow up RA/polymyositis-referral pending to rheumatology. She will contact to get on cancellation list given her signficiant neuropathy from the medication Labs ordered. Mammo ordered CHF-euvolemic on current medicaitons. continue cardiology follow up Orders: Orders Vitamin B12 and Folate Today G62.9 - Polyneuropathy, unspecified, I10 - Essential (primary) hypertension, I48.91 - Unspecified atrial fibrillation, I50.9 - Heart failure, unspecified MM screening mammo BI Today Z12.31 - Encounter for screening mammogram for malignant neoplasm of breast Complete Blood Count Auto Diff Today G62.9 - Polyneuropathy, unspecified, I10 - Essential (primary) hypertension, I48.91 - Unspecified atrial fibrillation, I50.9 - Heart failure, unspecified IRON PROFILE Today G62.9 - Polyneuropathy, unspecified, I10 - Essential (primary) hypertension, I48.91 - Unspecified atrial fibrillation, I50.9 - Heart failure, unspecified Pathologist Review - CBC Today G62.9 - Polyneuropathy, unspecified, I10 - Essential (primary) hypertension, I48.91 - Unspecified atrial fibrillation, I50.9 - Heart failure, unspecified Medications: New baclofen 10 - 20 mg (1 - 2 x 10 mg) PO BEDTIME 180 tabs 3RF metoprolol succinate ER 50 mg PO DAILY 90 tabs 3RF furosemide 40 mg PO BID 180 tabs 3RF
--- OUTSIDE RECORDS SUMMARY | 2025-02-25 10:37 | XMS_ITS | Clinical Summary ---
Author Organization [facility] Facility Address [address] [place] [address] Care Team Providers Care Cleat Thrower Name Role Phone Dbe Soliman MD Primary Care Provider [phone] Medications metoprolol tartrate (LOPRESSOR) 50 MG tablet [...] age to complete this topic Care Teams Cleat Thrower Relationship Specialty Start Date End Date Deb Soliman MD [address] [place] [address] [address] [place] [address] PCP - General 09/19/20
== END 2025-02-25 10:17 | disposition home or self-care (01) ==
LOC: HO.HMCHD 09:41
PROVIDERS: PCP Internal Medicine; Visit Provider Internal Medicine
DX: I50.9 Heart failure, unspecified (principal); I48.0 Paroxysmal atrial fibrillation; I10 Essential (primary) hypertension; M06.9 Rheumatoid arthritis, unspecified; L30.9 Dermatitis, unspecified

== ENCOUNTER → 2025-02-25 09:40 | Outpatient (BNVA) | payer MEDICARE, OTHER, SELFPAY | PROVIDERS: PCP Internal Medicine; Visit Provider Internal Medicine | DX: I11.0 Hypertensive heart disease with heart failure (principal); I50.9 Heart failure, unspecified; I48.0 Paroxysmal atrial fibrillation; M06.9 Rheumatoid arthritis, unspecified; L30.9 Dermatitis, unspecified; Z13.30 Encounter for screening examination for mental health and behavioral disorders, unspecified; Z13.31 Encounter for screening for depression | CPT/HCPCS: 96127; 99212 ==

== ENCOUNTER 2025-03-19 09:38 | Outpatient (REF) | payer MEDICARE, OTHER, SELFPAY ==
--- OUTSIDE RECORDS SUMMARY | 2025-03-18 23:59 | XMS_ITS | Continuity of Care Document ---
Author Organization [facility] Address [address] [place] [address]- Care Team Providers Care Hostage Negotiator Name Role Phone Gera Sanchez MD Primary Care Physician [place] [facility] Date(s): 02/16/25 - 03/18/25 [facility] [address] [place] [address]- Attending Physician: Sonny Manning Admitting Physician: Sonny Manning Referring Physician: AdmtrSonny Encounter Type: Triage Allergies, Adverse Reactions, Alerts Substance Criticality Severity Reaction Reaction Severity Status codeine Active methotrexate Active hydroxychloroquine High criticality Moderate Active Flagyl High criticality Moderate Act concetta HYDROmorphone High criticality Moderate Active oxyCODONE Active traMADol Active Medications allopurinol 100 mg oral tablet TAKE 2 TABLETS BY MOUTH EVERY DAY Start Date: 02/16/25 Status: Ordered Repeat number: 1 allopurinol 300 mg oral tablet 300 mg, 1, tablet, By Mouth, Daily, Refills 0, Maintenance, 02/19/18 2:05:37 PM EDT Start Date: 02/19/18 Status: Ordered Repeat number: 1 atorvastatin 20 mg oral tablet 1 tablet = 20 mg, By Mouth, Daily, # 30 tablet, 0 Refills, Maintenance, 02/16/25 11:02:00 AM EDT, Tablet, Partial fill upon patient request if the prescription is for a schedule II opioid drug. Start Date: 02/16/25 Status: Ordered Quantity: 30.0 Unit: tablet Repeat number: 1 Citracal + D 315 mg-250 intl units oral tablet 2 tablet, By Mouth, 2 times a day, 0 Refills, Maintenance, 02/19/18 2:03:53 PM EDT Start Date: 02/19/18 Status: Ordered Repeat number: 1 Compression Stockings surgical, knee high length 20-30 mm Hg, # 2 pair, Refills 5, Tot. Refills 5, Maintenance, Dx: Varicose Veins with Pain, 02/19/18 2:12:41 PM EDT, Compound Start Date: 02/19/18 Status: Ordered Quantity: 2.0 Unit: pair Repeat number: 6 Eliquis 5 mg oral tablet 1 tablet = 5 mg, By Mouth, 2 times a day, # 180 tablet, 3 Refills, Maintenance, 02/17/25 4:28:00 PM EDT, Tablet, [facility]/pharmacy #[id number], Partial fill upon patient request if the prescription is for a schedule II opioid drug. Start Date: 02/17/25 Status: Ordered Quantity: 180.0 Unit: tablet Repeat number: 4 Farxiga 10 mg oral tablet 1 tablet = 10 mg, By Mouth, Daily, # 90 tablet, 1 Refills, Maintenance, 02/17/25 4:28:00 PM EDT, [facility]/pharmacy #[id number], Partial fill upon patient request if the prescription is for a schedule II opioid drug. Start Date: 02/17/25 Status: Ordered Quantity: 90.0 Unit: tablet Repeat number: 2 furosemide 20 mg oral tablet TAKE 2 TABLETS BY MOUTH EVERY MORNING Start Date: 02/16/25 Status: Ordered Repeat number: 1 hydrochlorothiazide-triamterene 50 mg-75 mg oral tablet 1, tablet, By Mouth, Daily, Refills 0, Maintenance, 02/19/18 2:04:52 PM EDT Start Date: 02/19/18 Status: Ordered Repeat number: 1 leflunomide 10 mg oral tablet TAKE 1 TABLET BY MOUTH EVERY DAY Start Date: 02/16/25 Status: Ordered Repeat number: 1 metoprolol 200 mg oral tablet, extended release 1 tablet = 200 mg, By Mouth, Daily, 0 Refills, Maintenance, 02/19/18 2:02:37 PM EDT Start Date: 02/19/18 Status: Ordered Repeat number: 1 Metoprolol Succinate ER 50 mg oral tablet, extended release 100 mg, 2, tablet, By Mouth, Daily, Refills 0, Maintenance, 02/16/25 11:05:00 AM EDT, Partial fill upon patient request if the prescription is for a schedule II opioid drug. Start Date: 02/16/25 Status: Ordered Repeat number: 1 pantoprazole 40 mg oral delayed release tablet 1 tablet = 40 mg, By Mouth, Daily, # 30 tablet, 0 Refills, Maintenance, 02/16/25 11:13:00 AM EDT, ECTablet Start Date: 02/16/25 Status: Ordered Quantity: 30.0 Unit: tablet Repeat number: 1 Potassium Chloride (Eqv-K-Tab) 20 mEq oral tablet, extended release 1 tablet = 20 mEq, By Mouth, Daily, # 90 tablet, 1 Refills, Maintenance, 02/17/25 4:28:00 PM EDT, [facility]/pharmacy #[id number], Partial fill upon patient request if the prescription is for a schedule II opioid drug. Start Date: 02/17/25 Status: Ordered Quantity: 90.0 Unit: tablet Repeat number: 2 Social History Social History Type Response Smoking Status Never smoker; Tobacc o user in household: No entered on: 02/19/18 Sex Sex Representation Female (finding) Patient Care team information Care Team Personnel Name: Gera Sanchez MD Position: Reference Physician Member Role: PCP [address]: [address] [place] [address] [address] [place] [address] Telecom: Care Team Related Persons Name: PHILOMENA JUÁREZ Insurance Providers Guarantor name: PHILOMENA MARQUITA Health Plan Information #: 1 Payer: MEDICARE B Payer Identifier: Member Number: [id number] Group Number: Subscriber Identifier: [id number] Relationship to Subscriber: self Coverage Type: NA Coverage Verification Date: Telecom: Address: Health Plan Information #: 2 Payer: [facility] Payer Identifier: Member Number: [id number] Group Number: Subscriber Identifier: [id number] Relationship to Subscriber: self Coverage Type: Medicare Other Coverage Verification Date: Telecom: Address:
--- OUTSIDE RECORDS SUMMARY | 2025-03-19 09:55 | XMS_ITS | Patient Health Record ---
Author Organization [facility] Address [address] [place] [address] Care Team Providers Care Data Integration Analyst Name Role Phone Janny NAVARRO, Deb Primary Care Provider Hal Tracey Jr Unavailable Allergies Allergen (clinical drug ingredient) Drug/Non Drug Allergy documented on EMR Reaction Allergy Type Onset Date Status codeine Codeine Sulfate Unknown Drug Allergy A ctive methetrexol (uncoded) Unknown Allergy Active Reason For Referral No Information Medications Medication SIG (Take, Route, Frequency, Duration) Notes Start Date End Date Status Klor-Con M10 10 MEQ TAKE 1 TABLET BY MYRNA TH EVERY DAY Oral for 90 Active Atorvastatin Calcium 20 MG TAKE 1 TABLET BY MOUTH EVERY DAY Oral for 30 Active Metoprolol Tartrate 100 MG TAKE 1 TABLET BY MOUTH EVERY DAY Oral for 90 Active Colyte with Flavor Packs 240 GM As directed Orally Over the specified time. for 1 day(s) 11/06/2018 Active Leflunomide 10 MG TAKE 1 TABLET BY MYRNA TH EVERY DAY Oral for 90 Active Triamterene-HCTZ 75-50 MG TAKE 1 TABLET BY MOUTH EVERY DAY Oral for 90 Active chlordiazePOXIDE-Clidinium 5-2.5 MG TAKE 1-2 CAPSULES BY MOUTH DAILY IF NEEDED Oral for 30 Active Warfarin Sodium 2 MG TAKE 1 TABLET BY MO UTH EVERY DAY Oral for 90 Active Immunizations Vaccine Route Administration Date Status Comme nts Influenza Unknown 07/10/2018 Administered Social History Tobacco Use: Social History Observation Description Date Details (start date - stop date) Never Smoker NA - NA Tobacco Use/Smoking Question Answer Notes Patient is a nonsmoker Alcohol Screen Question Answer Notes Did you have a drink containing alcohol in the p ast year? No Points 0 Interpretation Negative Plan Of Treatment Future Test Test Name Order Date COLONOSCOPY 11/06/2018 Insurance Providers Payer Name Payer Address Payer Phone Subscriber Number Group Number Insured Name Patient Relationship to Insured Coverage Start Date Coverage End Date [facility] [address] [facility] [place] [phone] [id number] EMMETT JUÁREZ Self - patient is the insured Medical (General) History Medical History History ICD Code hypertension Denies ND,DM,CVA,Lung disease,renal dise ase Gout myositis hx of celulitis IBS Surgical History Surgery Date(Month/Year)
--- OUTSIDE RECORDS SUMMARY | 2025-03-19 09:55 | XMS_ITS | Clinical Summary ---
Author Organization [facility] Address [address] [place] [address] Care Team Providers Care Labor Training Manager Name Role Phone Deb Soliman MD Primary Care Provider [phone] Medications metoprolol tartrate (LOPRESSOR) 50 MG tablet [...] Colorectal Cancer Screening: Sigmoidoscopy 2004 Influenza Vaccine (#1) 2025 Hepatitis B Vaccine Aged Out No longe r eligible based on patient's age to complete this topic Care Teams Labor Training Manager Relationship Specialty Start Date End Date Deb Soliman MD [address] [place] [address] [address] [place] [address] PCP - General 09/19/20
--- OUTSIDE RECORDS SUMMARY | 2025-03-19 09:55 | XMS_ITS | Clinical Summary ---
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 5 Active atorvastatin (LIPITOR) 20 MG tablet Take 1 tablet (20 mg total) by mouth every morning. 5 Active leflunomide (ARAVA) 10 MG tablet Take 1 tablet (10 mg total) by mouth every morning. 5 Active PANTOprazole (PROTONIX) 40 MG EC tablet Take 1 tablet (40 mg total) by mouth every morning. 5 Active silver sulfADIAZINE (SILVADENE) 1 % cream APPLY TO SKIN DAILY 5 Active Vitamin D3 (CHOLECALCIFEROL) 50 MCG (2000 UT) tablet Take 1 tablet (2,000 Units total) by mouth daily. Active B-Complex Cap Take 1 capsule by mouth daily. Active furosemide (LASIX) 20 MG tabletIndications: Acute decompensated heart failure (HCC) Take 2 tablets (40 mg total) by mouth every morning. 60 tablet 5 Active metoPROLOL SUCCINATE (TOPROL-XL) 50 MG 24 hr tabletIndications: Atrial fibrillation (HCC) Take 1 tablet (50 mg total) by mouth every morning. 30 tablet 5 Active apixaban (ELIQUIS) 5 MG tabletIndications: Atrial fibrillation (HCC) Take 1 tablet (5 mg total) by mouth every 12 (twelve) hours around the clock. 60 tablet 5 Active potassium chloride (K-TAB) 20 MEQ CR tabletIndications: Heart failure with mildly reduced ejection fraction (HCC) Take 1 tablet (20 mEq total) by mouth daily. Swallow whole; do not crush. Take with food. 30 tablet 5 Active empagliflozin (JARDIANCE) 10 MG tabletIndications: Heart failure with mildly reduced ejection fraction (HCC) Take 1 tablet (10 mg total) by mouth every morning. 30 tablet 5 Active Active Problems Problem Noted Date Diagnosed Date Paroxysmal atrial fibrillation 01/29/2025 Heart failure with reduced ejection fraction Pulmonary edema 01/19/2025 Assessment & Plan (01/19/2025 2:49 PM EDT): ECHO EF 45%. Severe hypo to akinesis of the mid anterior, mid anterolateral, mid anterior septal and mid inferolateral segments. Mild aortic stenosis and mild to moderate tricuspid regurgitation. CXR trace left pleural effusion with left basilar subsegmental atelectasis. Minimal interstitial pulmonary edema. BNP 60462 Trop 647 -> 542 SBP 105 - Per interventional cardiology plan for RHC/LHC +/- PCI 01/20 and plan for n.p.o. at midnight - [id number] 2 - Continue heparin GTT - Aspirin [...] subsegmental atelectasis. Minimal interstitial pulmonary edema. BNP 53443 Trop 647 -> 542 SBP 105 - Per interventional cardiology plan for RHC/LHC +/- PCI 01/20 and plan for n.p.o. at midnight - [id number] 2 - Continue heparin GTT - Aspirin [...] subsegmental atelectasis. Minimal interstitial pulmonary edema. BNP 54105 Trop 647 -> 542 SBP 105 - Per interventional cardiology plan for RHC/LHC +/- PCI 01/20 and plan for n.p.o. at midnight - [id number] 2 - Continue heparin GTT - Aspirin [...] subsegmental atelectasis. Minimal interstitial pulmonary edema. BNP 78284 Trop 647 -> 542 SBP 105 - Per interventional cardiology plan for RHC/LHC +/- PCI 01/20 and plan for n.p.o. at midnight - [id number] 2 - Continue heparin GTT - Aspirin 81 mg once daily - Lipitor 80 mg once daily - Lasix 40 mg IV twice daily - Lopressor 20 mg twice daily - Lipids in a.m. - Strict I's and O's, daily weights, telemetry - K>4 and Mg >2 GERD (gastroesophageal reflux disease) Assessment & Plan (01/19/2025 2:47 PM EDT): [...] Diagnosed Date Resolved Date Metabolic acidosis 01/19/2025 Assessment & Plan (01/19/2025 2:47 PM [...] subsegmental atelectasis. Minimal interstitial pulmonary edema. BNP 72311 Trop 647 -> 542 SBP 105 - Per interventional cardiology plan for RHC/LHC +/- PCI 01/20 and plan for n.p.o. at midnight - [id number] 2 - Continue heparin GTT - Aspirin 81 mg once daily - Lipitor 80 mg once daily - Lasix 40 mg IV twice daily - Lopressor 20 mg twice daily - Lipids in a.m. - Strict I's and O's, daily weights, telemetry - K>4 and Mg >2 Encounters Date Type Department Care Team Description 01/29/2025 12:00 PM EDT Clinical Support [facility] Heart & Vascular [facility] Advanced Heart Failure [place] [address] [facility] [address] [place] [address] Anderson Watkins DO Malone, Kimberly A, RICHARDSON 01/29/2025 11:00 AM EDT Infusion [facility] Heart & Vascular [facility] Heart Failure [place] [address] [facility] [address] [place] [address] Brittany Sheehan MD Swan, Alexa J, APRN Heart failure with mildly reduced ejection fraction (HCC) (Primary Dx); Paroxysmal atrial fibrillation (HCC) 01/29/2025 Orders Only [facility] Heart & Vascular [facility] [address] [facility] [address] [place] [address] Layla Platt APRN Heart failure with mildly reduced ejection fraction (HCC) 01/29/2025 Travel 01/26/2025 Orders Only [place] [address] [address] [place] [phone] Dante Ferrara MD Acute decompensated heart failure (HCC) 01/25/2025 Orders Only [facility] & Vascular [facility] Heart Failure [facility] [address] [facility] [address] [place] [phone] Marlny Luevano APRN 01/20/2025 2:09 PM EDT - 01/20/2025 3:33 PM EDT Surgery [facility] & Vascular [place] [facility] - Cardiac Catheterization Laboratory [address] [place] [phone] Geovanni Howell MD CORONARY ANGIO W/LV+LT/RT CATH 01/18/2025 10:50 AM EDT Ancillary Procedure [facility] Radiology [address] [place] [phone] Provider, File Room 01/18/2025 10:50 AM EDT Ancillary Procedure [facility] Radiology [address] [place] [phone] Provider, File Room 01/18/2025 10:15 AM EDT Ancillary Procedure [facility] Emergency Department [address] [place] [phone] Deena Guajardo MD 01/18/2025 9:48 AM EDT - 01/23/2025 5:13 PM EDT Hospital Encounter [address] [phone] Monica Agrawal MD Schreyer, Evan K, MD Obayomi, Titilope, Brittany Alberts, Anupama Wynn, Diane Graham MD Karna, Bibek, MD Ferrara, MD Dante Cardiogenic shock (HCC) (Primary Dx); NSTEMI (non-ST elevated myocardial infarction) (HCC); Pneumonia; Acute decompensated heart failure (HCC); Atrial fibrillation (HCC) Discharge Disposition: Home or Self Care 01/18/2025 Orders Only [facility] Radiology [address] [facility] [place] [address] Provider, File Room 01/18/2025 Travel from Last 3 Months Social History Tobacco Use Types Packs/Day Years Used Date Smoking Tobacco: Never Smokeless Tobacco: Never Tobacco Cessation:Counseling Given: Not Answered Alcohol Use Standard Drinks/Week Comments Not Currently 0 (1 standard drink = 0.6 oz pur e alcohol) [facility] Utilities Answer Date Recorded In the past 12 months has e [employer], gas, oil, or water [employer] threatened to shut off services in your [...] any time in the past 12 m [facility], were you homeless or living in a intermediate (including now)? No 01/19/2025 Comments Unknown Sex and Gender Information Value Date Recorded Sex Assigned at Female 01/18/2025 10:27 AM EDT Legal Sex Female 9:33 AM EDT Gender Identity Female 01/18/2025 10:27 AM EDT Sexual Orientation Heterosexual (straight) 01/18 10:27 AM EDT Last Filed Vital Signs Vital Sign Reading Time Taken Comments Blood Pressure 130/86 01/29/2025 11:00 AM EDT Pulse 49 01/29/2025 11:00 AM EDT Temperature 35.8 C (96.5 F) 01/23/2025 7:27 AM EDT Respiratory Rate 18 01/23/2025 7:27 AM EDT Oxygen Saturation 98% 01/29/2025 11:00 AM EDT Inhaled Oxygen Concentration - - Weight 71.1 kg (156 lb 12 oz) 01/29/2025 10:54 A M EDT Height 154.9 cm (5' 1 ) 01/19/2025 7:00 AM EDT Body Mass Index 29.62 01/19/2025 7:00 AM EDT Plan of Treatment Health Maintenance Due [...] Procedure Name Priority Date/Time Associated Diagnosis Comments BASIC METABOLIC PANEL Routine 02/08/2025 10:18 AM EDT Heart failure with mildly reduced ejection fraction (HCC) ISTAT B-TYPE NATRIURETIC PEPTIDE (BNP) (NO CHARGE) Routine 01/29/2025 11:25 AM EDT ISTAT HEMOGLOBIN (ACTIVE) (NO CHARGE) Routine 01/29/2025 11:18 AM EDT ISTAT HEMATOCRIT (ACTIVE) (NO CHARGE) Routine 01/29/2025 11:18 AM EDT ISTAT CHLORIDE (CL) (NO CHARGE) Routine 01/29/2025 11:18 AM EDT ISTAT GLUCOSE (NO CHARGE) Routine 01/29/2025 11:18 AM EDT ISTAT TCO2, VENOUS (ACTIVE)(NO CHARGE) Routine 01/29/2025 11:18 AM EDT ISTAT CREATININE W/ GFR (ACTIVE) (NO CHARGE) Routine 01/29/2025 11:18 AM EDT ISTAT BLOOD UREA NITROGEN (BUN) (NO CHARGE) Routine 01/29/2025 11:18 AM EDT ISTAT POTASSIUM (K) (NO CHARGE) Routine 01/29/2025 11:18 AM EDT ISTAT SODIUM (NA) (NO CHARGE) Routine 01/29/2025 11:18 AM EDT MAGNESIUM Routine 01/23/2025 6:11 AM EDT BASIC [...] WITHOUT DIFFERENTIAL Routine 01/18/2025 11:46 PM EDT ENVIRONMENTAL ENGINEER CARDIAC POC ULTRASOUND Routine 01/18/2025 8:55 PM EDT NSTEMI (non-ST elevated myocardial infarction) (HCC) Cardiogenic shock (HCC) HEPARIN ASSAY (ANTI-XA) Routine 01/19/20 25 8:30 PM EDT LACTIC ACID, PLASMA Routine [...] EDT from Last 3 Months Results * (ABNORMAL) Basic metabolic panel (02/08/2025 10:18 AM EDT) Only the most recent of6 resultswithin the time period is included. Pathologist [facility] Glucose 80 65 - 99 mg/dL [employer] [employer] Comment: Fasting reference interval Blood Urea Nitrogen (BUN) 52(H) 7 - 25 mg/dL [employer] [employer] Creatinine 1.07(H) 0.50 - 1.05 mg/dL [facility] [employer] Creatinine w/ eGFR 56(L) > OR = 60 mL/min/1.7 3m2 [employer] [employer] BUN/Creatinine Ratio 49(H) 6 - 22 (calc) [employer] [employer] Sodium 140 135 - 146 mmol/L [employer] [employer] Potassium 3.9 3.5 - 5.3 mmol/L [employer] [employer] Chloride 103 98 - 110 mmol/L [employer] [employer] CO2 24 20 - 32 mmol/L [employer] [employer] Calcium 9.4 8.6 - 10.4 mg/dL [facility] [employer] Blood Blood specimen / Unknown 02/08/2025 10:18 AM EDT 02/08/2025 10:18 AM EDT Narrative [facility] - 02/09/2025 3:52 AM EDT FASTING:YES FASTING: YES us Layla Platt PATCHER LAB BLOOD ORDERABLES Final Res ult [employer] [address] [place] [phone] * (ABNORMAL) ISTAT (BNP) (B-Type Natriuretic Peptide) (01/29/2025 11:25 AM EDT) BNP, I-STAT 513(H) 0 - 99 pg/mL 01/29/2025 11:28 AM EDT Blood specimen / Unknown 01/29/2025 11:25 AM EDT 01/29/2025 11:28 AM EDT us Layla Platt PATCHER POCT ORDERABLES - DEVICE Final Result HOSPITAL LAB See Below * ISTAT TCO2, Venous (01/29/2025 11:18 AM EDT) TCO2 Venous, I-STAT 25 22 - 33 mmol/L 01/29/2025 11:20 AM EDT Blood specimen / Unknown 01/29/2025 11:18 AM EDT 01/29/2025 11:20 AM EDT us Layla Platt APRN POCT ORDERABLES - DEVICE Final Result Performing Organization Address [facility]/State/ZIP Co de Phone Number HOSPITAL LAB See Below * ISTAT Hemoglobin (01/29/2025 11:18 AM EDT) Hemoglobin, I-STAT 12.6 11.7 - 15.7 gm/dL 01/29/2025 11:20 AM EDT Blood specimen / Unknown 01/29/2025 11:18 AM EDT 01/29/2025 11:20 AM EDT us Layla Platt APRN POCT ORDERABLES - DEVICE Final Result Performing Organization Address City/State/[facility] Co de Phone Number HOSPITAL LAB See Below * ISTAT Hematocrit (01/29/2025 11:18 AM EDT) Hematocrit, I-STAT 37.0 35.0 - 47.0 % 01/29/2025 11:20 AM EDT Blood specimen / Unknown 01/29/2025 11:18 AM EDT 01/29/2025 11:20 AM EDT us Layla Platt APRN POCT ORDERABLES - DEVICE Final Result Performing Organization Address [facility] LAB See Below * (ABNORMAL) ISTAT Creatinine w/ GFR (01/29/2025 11:18 AM EDT) Creatinine, I-STAT 1.4(H) 0.4 - 1.1 mg/dL 01/29/2025 11:20 AM EDT EGFR, I-STAT 41(L) >59 01/29/2025 11:20 AM EDT Comment:CKD-EPI (2020) in mL /min/1.73 sq meters. Blood specimen / Unknown 01/29/2025 11:18 AM EDT 01/29/2025 11:20 AM EDT us Layla Platt APRN POCT ORDERABLES - DEVICE Final Result Performing Organization Address [facility] LAB See Below * ISTAT Chloride (Cl) (01/29/2025 11:18 AM EDT) Chloride, I-STAT 106 98 - 107 mmol/L 01/29/2025 11:20 AM EDT Blood specimen / Unknown 01/29/2025 11:18 AM EDT 01/29/2025 11:20 AM EDT us Layla Platt APRN POCT ORDERABLES - DEVICE Final Result Performing Organization Address [facility] Phone Number [facility] LAB See Below * (ABNORMAL) ISTAT Blood Urea Nitrogen (BUN) (01/29/2025 11:18 AM EDT) BUN, I-STAT 49(H) 8 - 21 mg/dL 01/29/2025 11:20 AM EDT Blood specimen / Unknown 01/29/2025 11:18 AM EDT 01/29/2025 11:20 AM EDT us Layla Platt APRN POINT OF CARE TEST ORDERABLES Final Result Performing Organization Address [facility] LAB See Below * (ABNORMAL) ISTAT Potassium (K) (01/29/2025 11:18 AM EDT) Potassium, I-STAT 3.3(L) 3.4 - 5.3 mmol/L 01/29/2025 11:20 AM EDT Blood specimen / Unknown 01/29/2025 11:18 AM EDT 01/29/2025 11:20 AM EDT us Layla Platt APRN POINT OF CARE TEST ORDERABLES Final Result Performing Organization Address [facility] LAB See Below * ISTAT Sodium (Na) (01/29/2025 11:18 AM EDT) Sodium, I-STAT 141 136 - 145 mmol/L 01/29/2025 11:20 AM EDT Blood specimen / Unknown 01/29/2025 11:18 AM EDT 01/29/2025 11:20 AM EDT us Layla Platt APRN POINT OF CARE TEST ORDERABLES Final Result Performing Organization Address [facility] LAB See Below * (ABNORMAL) ISTAT Glucose (01/29/2025 11:18 AM EDT) Glucose, I-STAT 133(H) 65 - 99 mg/dL 01/29/2025 11:20 AM EDT Blood specimen / Unknown 01/29/2025 11:18 AM EDT 01/29/2025 11:20 AM EDT us Layla Platt APRN POCT ORDERABLES - DEVICE Final Result Performing Organization Address [facility]/ZIP Co de Phone Number HOSPITAL LAB See Below * Magnesium (AM) (01/23/2025 6:11 AM EDT) Only the most recent of7 resultswithin the time period is included. Pathologist [facility] Magnesium 2.0 1.6 - 2.7 mg/dL 01/23/2025 7:17 AM [facility] Blood Blood specimen / Unknown 01/23/2025 6:11 AM EDT 01/23/2025 6:44 AM EDT us Brittany Sheehan MD LAB BLOOD ORDERABLES Final Res ult [address] [address], [address] [address] * (ABNORMAL) COMPLETE BLOOD COUNT, WITHOUT DIFFERENTIAL (01/22/2025 8:02 AM EDT) Only the most recent of3 resultswithin the time period is included. [facility] White Blood Cell Count 6.8 4.0 - 11.0 Thou/uL 01/22/2025 8:38 AM [facility] Platelet Count 257 150 - 450 Thou/uL 01/22/2025 8:38 AM [facility] Hemoglobin 12.4 11.7 - 15.7 g/dL 01/22/2025 8:38 AM [facility] Hematocrit 38.1 35.0 - 47.0 % 01/22/2025 8:38 AM [facility] Red Blood Cell Count 4.01 4.00 - 5.40 Mil/uL 01/22/2025 8:38 AM [facility] MCV 95 80 - 100 fL 01/22/2025 8:38 AM [facility] MCH 30.9 27.0 - 31.0 pg 01/22/2025 8:38 AM [facility] MCHC 32.5 30.0 - 36.0 g/dL 01/22/2025 8:38 AM [facility] RDW 14.7(H) 11.5 - 14.5 % 01/22/2025 8:38 AM [facility] MPV 10.0 7.5 - 12.5 fL 01/22/2025 8:38 AM EDT [facility] Blood Blood specimen / Unknown 01/22/2025 8:02 AM EDT 01/22/2025 8:27 AM EDT us Brittany Sheehan MD LAB BLOOD ORDERABLES Final Res ult Performing Organization Address City/[facility]/[place] [address], [place] [address] * Heparin Assay (Anti Xa) (01/20/2025 5:04 PM EDT) Only the most recent of8 resultswithin the time period is included. Anti Xa 0.75 IU/mL 01/20/2025 6:13 PM EDT [facility] Comment: (NOTE) Heparin Thromboembolic/Standard/Full Dose Protocol: Therapeutic Range: Age 18+: 0.30 - 0.70 IU/mL Age 0 - 17: 0.35 - 0.70 IU/mL Heparin Cardiac/Low Dose Protocol: Therapeutic Range: 0.30 - 0.50 IU/mL Low Molecular Weight Heparin: Therapeutic Range: Age 18+: 0.50 - 1.09 IU/mL for twice daily dosing (or adjusted to daily for poor renal function) Age 18+: 1.00 - 2.00 IU/mL for once daily dosing Age 0-17: 0.50 - 1.00 IU/mL Anticoagulant IV HEPARIN, UNFRACTIONATED 01/20/2025 11:23 AM EDT [facility] Blood Blood specimen / Unknown 01/20/2025 5:04 PM EDT 01/20/2025 5:59 PM EDT us Levi Perrin PA-C LAB BLOOD ORDERABLES Final Re sult Performing Organization Address City/[facility]/ZIP Co de Phone Number [address] [address], [address] [address] * CC CORANGIO +LV+L/R CATH (01/20/2025 3:30 PM EDT) Anatomical Region Laterality Modality Radiographic Corinne ging Narrative 01/20/2025 3:45 PM EDT Table formatting from the original result was not included. Images from the original result were not included. [facility] Heart & Vascular [place] [facility] - Cardiac Catheterization Laboratory PATIENT DEMOGRAPHIC INFORMATION Name: Karol Frias : 1955 69 y.o. Sex: female Gender: female Procedure Date: 01/20/2025 PROCEDURE DETAILS Accountancy Professor: Geovanni Howell MD Fellow: None Cable Inspector(s): none Indications for Procedure: Heart failure Referring Physician: Vinicio Bedolla PCP: Kenisha Ozuna MD Procedure(s): Procedures: * CORONARY ANGIO W/LV+LT/RT CATH CONCLUSIONS/RECOMMENDATIONS No evidence of angiographically significant coronary artery disease. 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 Normal cardiac output and cardiac index Return to medical floor PROCEDURE FINDINGS Tracings available in [employer] log report Findings Diagnostic Dominance: Right Left [...] angiographically significant coronary artery disease. Pressures Site RA 15 [...] = 5 L/min ; CI = 2.9 L/min/m SVR = 1154.5 PVR = 253 CLINICAL HISTORY Patient is a 69-year-old female with past medical history of DVT not on anticoagulation, hypertension, hyperlipidemia, obesity who initially presented to [facility] with chief complaint of chest pain [...] this patient that I request from a [facility] PA/PATCHER/fellow/staff member. Geovanni Howell MD [facility] Heart & Vascular [place] 01/20/2025 3:44 PM Coronary Findings Diagnostic Dominance: Right Left [...] Saturation (AVOX) (01/20/2025 3:17 PM EDT) Pathologist [facility] RA 65.6 60 - 75 % PA 64.2 60 - 75 % AO 93.8(A) 95 - 99 % Lot Number [id number] Library Technical Assistant Pass Pass Blood 01/20/2025 3:17 PM EDT Geovanni Howell MD POINT OF CARE TEST ORDERABLES Final Result * (ABNORMAL) proBNP, N-terminal (01/20/2025 7:55 AM EDT) Only the most recent of2 resultswithin the time period is included. [facility] proBNP, N-terminal 12,481(H) <125 pg/mL 01/20/2025 10:36 AM EDT [facility] 01/20/2025 7:55 AM EDT 01/20/2025 8:37 AM EDT Teresa Cullen Haseeb PA-C LAB BLOOD ORDERABLES Liz l Result Performing Organization Address [facility] Co de Phone Number [address] [address], [address] [address] * Lipid Panel (AM) (01/20/2025 7:55 AM EDT) Cholesterol, Total 126 <200 mg/dL 2024 9:02 AM [facility] Triglycerides 117 <150 mg/dL 01/20/2025 9:02 AM [facility] Cholesterol, HDL 52 >39 mg/dL 01/21/20 9:02 AM [facility] Estimated LDL 51 <130 mg/dL 01/20/2025 9:02 AM [facility] Comment: NCEP Guidelines: < 100 mg/dL Optimal 100 - 129 mg/dL Near Optimal/Above Optimal 130 - 159 mg/dL Borderline High 160 - 189 mg/dL High >/= 190 mg/dL Very High Cholesterol/HDL Ratio 2.4 0.0 - 5.0 Ratio 01/20/2025 9:02 AM [facility] Comment: Relative Risk Ratio - Male Ratio - Female 0.5 3.4 3.3 1.0 5.0 4.4 2.0 9.6 7.1 3.0 23.4 11.0 Blood Blood specimen / Unknown 01/20/2025 7:55 AM EDT 01/20/2025 8:37 AM EDT Teresa Membreno PA-C LAB BLOOD ORDERABLES Liz l Result Performing Organization Address City/[facility]/ZIP Co de Phone Number [address] [address], [address] [address] * ECG 12 lead (01/19/2025 9:09 AM EDT) Only the most recent of4 resultswithin the time period is included. Pathologist [facility] Systolic BP 137 mmHg EKG [facility] Diastolic BP 58 mmHg EKG [facility] Ventricular rate 65 BPM EKG [facility] Atrial rate 65 BPM EKG [facility] P-R interval 128 ms EKG [facility] QRS duration 72 ms EKG [facility] Q-T interval 434 ms EKG [facility] QTC calculation (Bazett) 451 ms EKG [facility] P axis 28 degrees EKG [facility] R axis 63 degrees EKG [facility] T axis 110 [facility] 01/19/2025 9:09 AM EDT Narrative [facility] - 01/19/2025 9:54 AM EDT [...] Lateral leads Confirmed by MD Batista John ([id number]) on 01/19/2025 9:53:56 AM Procedure Note Moy [...] Lateral leads Confirmed by MD Batista John ([id number]) on 01/19/2025 9:53:56 AM Moy Batista MD ECG ORDERABLES Final Result [facility] * (ABNORMAL) Iron and Total Iron Binding Capacity (01/19/2025 8:00 AM EDT) Pathologist [facility] Iron 21(L) 59 - 151 ug/dL 01/19/2025 [...] ORDERABLES Final Re sult Performing Organization Address City/[facility]/[place] [address], [place] [address] * Potassium (01/19/2025 8:00 AM EDT) Pathologist [facility] Potassium 4.0 3.4 - 5.3 mmol/L 01/19/2025 9:48 AM EDT [facility] Blood Blood specimen / Unknown 01/19/2025 8:00 AM EDT 01/19/2025 9:04 AM EDT Aarti Spears APRN LAB BLOOD ORDERABLES Final Result Performing Organization Address City/[facility]/[place] [address], [address] [address] * Folate Level (01/19/2025 8:00 AM EDT) Pathologist [facility] Folate, Serum >20.0 >7.2 ng/mL 01/19/2025 10:12 AM EDT [facility] Comment:Specimen hemolyzed. Results may be artifactually elevated. Blood Blood specimen / Unknown 01/19/2025 8:00 AM EDT 01/19/2025 9:04 AM EDT us Vinicio Bedolla MD LAB BLOOD ORDERABLES Final Re sult Performing Organization Address City/[facility]/[place] [address], [place] [address] * Vitamin B12 (01/19/2025 8:00 AM EDT) Vitamin B12 520 243 - 894 pg/mL 01/19/2025 9:48 AM EDT [facility] Blood Blood specimen / Unknown 01/19/2025 8:00 AM EDT 01/19/2025 9:04 AM EDT us Vinicio Bedolla MD LAB BLOOD ORDERABLES Final Re sult Performing Organization Address [facility] [place] [address], [place] [address] * Hemoglobin A1C with Estimated Average Glucose (01/18/2025 11:46 PM EDT) Hemoglobin A1C 5.3 <5.7 % 01/19/2025 12:38 PM EDT [facility] Comment: A1c% Interpretation 5.7 - 6.0 Increase risk of diabetes 6.1 - 6.4 Higher risk of diabetes > or = 6.5 Consistent with diabetes Diabetes Care, 33(Supp 1):S1-S61, 2009 Estimated Average Glucose 105 mg/dL 01/19/2025 12:38 PM EDT [facility] Blood specimen / Unknown 01/18/2025 11:46 PM EDT 01/19/2025 12:18 AM EDT us Vinicio Bedolla MD LAB BLOOD ORDERABLES Final Re sult Performing Organization Address City/[facility] [place] [address], [place] [address] * Lactic Acid, Plasma (STAT) (01/18/2025 6:23 PM EDT) Only the most recent of3 resultswithin the time period is included. Lactic Acid 1.4 0.5 - 1.9 mmol/L 01/18/2025 7:09 PM EDT [facility] Blood Blood specimen / Unknown 01/18/2025 6:23 PM EDT 01/18/2025 6:42 PM EDT us Vinicio Bedolla MD LAB BLOOD ORDERABLES Final Re sult [address] [address] [address], [address] [address] * XR Chest 1 view-Portable (01/18/2025 4:47 PM EDT) Anatomical Region Laterality Modality Chest Computed Radiogr aphy 01/18/2025 3:50 PM EDT Impressions 01/19/2025 9:45 AM EDT 1. Trace left pleural effusion with left basilar subsegmental atelectasis. 2. Minimal interstitial pulmonary edema. Narrative 01/19/2025 9:45 AM [...] subsegmental atelectasis. 2. Minimal interstitial pulmonary edema. us Vinicio Bedolla MD IMG DIAGNOSTIC IMAGING ORDERA BLES Final Result * Influenza A/B, RSV, SARS-CoV-2 ESSIE Multiplex (FLUVID) (01/18/2025 4:43 PM EDT) Influenza A Virus Not Detected Not Detected [...] MICROBIOLOGY - GENERAL [place] [address], [address] [address] * Urinalysis with Reflex to Microscopic (01/18/2025 4:43 PM EDT) Pathologist [facility] Color Straw 01/18/2025 5:48 PM EDT [facility] Clarity Clear 01/18/2025 5:48 PM EDT [facility] Specific [place] 1.014 1.003 - 1.030 01/18/2025 5:48 PM [...] URINE ORDERABLES Final Result Performing Organization Address [facility] [place] [address], [place] [address] * Nasal MRSA Screen, PCR (01/18/2025 4:43 PM EDT) MRSA Result Not Detected Not Detected 7:03 PM EDT [facility] Comment:Performed by the Xpe rt MRSA NxG Assay Swab, Anterior Nares Specimen from nose / Unknown 01/18/2025 4:43 PM EDT 01/18/2025 5:30 PM EDT us Vinicio Bedolla MD MICROBIOLOGY - GENERAL ORDERA BLES Final Result Performing Organization Address [facility] [place] [address], [place] [address] * ECHOCARDIOGRAM COMPREHENSIVE WITH CONTRAST (01/18/2025 4:39 [...] Modality Ultrasound Narrative 01/18/2025 4:54 PM EDT Left ventricular systolic function is mildly decreased. [...] previous study for comparison in our system. Vinicio Bedolla MD CV ECHO ORDERABLES Final Resu lt * POCT Glucose, Fingerstick (01/18/2025 3:44 PM EDT) [facility] POC Glucose 96 65 - 99 mg/dL 01/18/2025 3:48 PM EDT Blood specimen / Unknown 01/18/2025 3:44 PM EDT 01/18/2025 3:48 PM EDT Monica Agrawal MD POINT OF CARE TEST [place] [facility] Final Result [facility]PITAL [facility] See Below * (ABNORMAL) High Sensitivity Troponin T (01/18/2025 12:33 PM EDT) Only the most recent of2 resultswithin the time period is included. [facility] High Sensitivity Troponin T 542(HH) <15 ng/L 01/18/2025 1:36 PM EDT [facility] Comment:Recurring Critical R esult. Previously phoned. Delta (Change) 105(H) <3 01/18/2025 1:36 PM EDT [facility] Comment:Decreased 01/18/2025 12:3 3 PM EDT 01/18/2025 1:03 PM EDT Deena Guajardo MD LAB BLOOD ORDERABL ES Final Result Performing Organization Address [facility] Co de Phone Number [address] [address], [address] [address] * CT Chest Archive for Reference Only (01/18/2025 10:47 AM EDT) Narrative ELEROY - 01/18/2025 10:47 AM EDT This study has been auto finalized and does not contain a result. File Room Provider IMG DIGITIZE FILMS Final Resu lt Performing Organization Address [facility] Co de Phone Number EWDARDO [phone] * CR Chest Archive for Reference only (01/18/2025 10:47 AM EDT) Narrative [facility] 01/18/2025 10:47 AM EDT This study has been auto finalized and does not contain a result. us File Room Provider IMG DIGITIZE FILMS Final Resu lt Performing Organization Address [facility] Co de Phone Number EDWARDO [phone] * Blood Culture (01/18/2025 10:39 AM EDT) Culture Sterile after 5 days 01/23/2025 7:10 AM EDT [facility] Blood Blood specimen / Unknown 01/18/2025 10:39 AM EDT 01/18/2025 11:07 AM EDT Comment:Blood us Deena Guajardo MD LAB BLOOD ORDERABL ES Final Result [facility] [address] [place] [address], [place] * (ABNORMAL) Complete Blood Count, with Differential (01/18/2025 10:39 AM EDT) White Blood Cell Count 20.1(H) 4.0 - 11.0 Thou/uL 01/18/2025 11:26 AM [facility] Platelet Count 219 150 - 450 Thou/uL 01/18/2025 11:26 AM [facility] Hemoglobin 11.1(L) 11.7 - 15.7 g/dL 01/18/2025 11:26 AM [facility] Hematocrit 37.2 35.0 - 47.0 % 01/18/2025 11:26 AM [facility] Red Blood Cell Count 3.64(L) 4.00 - 5.40 Mil/uL 01/18/2025 11:26 AM [facility] MCV 102(H) 80 - 100 fL 01/18/2025 11:26 AM [facility] MCH 30.5 27.0 - 31.0 pg 01/18/2025 11:26 AM [facility] MCHC 29.8(L) 30.0 - 36.0 g/dL 01/18/2025 11:26 AM [facility] RDW 15.0(H) 11.5 - 14.5 % 01/18/2025 11:26 AM [facility] MPV 10.1 7.5 - 12.5 fL 01/18/2025 11:26 AM [facility] Neutrophils Auto 90.1 % 01/19/20 11:26 AM [facility] Immature Granulocytes 0.6 % 01/18/2025 11:26 AM [facility] Lymphocytes Auto 3.8 % 01/19/20 11:26 AM [facility] Monocytes Auto 5.2 % 01/18/2025 11:26 AM [facility] Eosinophils Auto 0.0 % 01/19/20 11:26 AM [facility] Basophils Auto 0.3 % 01/18/2025 11:26 AM EDT [facility] Abs Neutrophils Auto 18.10(H) 2.00 - 7.50 Thou/uL 01/18/2025 11:26 AM EDT [facility] Abs Immature Granulocytes 0.12(H) 0.00 - 0.10 Thou/uL 01/18/2025 11:26 AM EDT [facility] Abs Lymphocytes Auto 0.77(L) 1.50 - 4.50 Thou/uL 01/18/2025 11:26 AM T [facility] Abs Monocytes Auto 1.05 0.20 - 1.50 Thou/uL 01/18/2025 11:26 AM [facility] Abs Eosinophils Auto 0.00 0.00 - 0.70 Thou/uL 01/18/2025 11:26 AM [facility] Abs Basophils Auto 0.07 0.00 - 0.20 Thou/uL 01/18/2025 11:26 AM [facility] Blood Blood specimen / Unknown 01/18/2025 10:39 AM EDT 01/18/2025 11:17 AM EDT us Deena Guajardo MD LAB BLOOD ORDERABL ES Final Result Performing Organization Address City/State/[facility] [place] [address], [place] [address] * (ABNORMAL) Partial Thromboplastin Time (PTT) (01/18/2025 10:39 AM EDT) Anticoagulant IV HEPARIN, UNFRACTIONATED 01/18/2025 10:11 AM EDT [facility] Partial Thromboplastin Time (PTT) 67(H) 25 - 36 seconds 01/18/2025 11:39 AM EDT [facility] Blood Blood specimen / Unknown 01/18/2025 10:39 AM EDT 01/18/2025 11:17 AM EDT us Deena Guajardo MD LAB BLOOD ORDERABL ES Final Result [address] [address], [place] [address] * Protime-INR (01/18/2025 10:39 AM EDT) Anticoagulant [...] ORDERABL ES Final Result Performing Organization Address City/[facility] [place] [address], [place] [address] * (ABNORMAL) Comprehensive Metabolic Panel (01/18/2025 10:39 AM EDT) Glucose 112(H) 65 - 99 mg/dL 01/18/2025 12:09 PM [facility] Comment:Fasting: <100 mg/dL, Non-Fasting: <200 mg/dL (ADA 2005) Blood Urea Nitrogen (BUN) 25(H) 8 - 21 mg/dL 01/18/2025 12:09 PM [facility] Creatinine 0.9 0.4 - 1.1 mg/dL 01/18/2025 12:09 PM [facility] eGFR 69 >59 01/18/2025 12:09 PM [facility] Comment:CKD-EPI (2020) in mL /min/1.73 sq meters. Sodium 141 136 - 145 mmol/L 01/18/2025 12:09 PM [facility] Potassium 3.8 3.4 - 5.3 mmol/L 01/18/2025 12:09 PM [facility] Chloride 106 98 - 107 mmol/L 01/18/2025 12:09 PM [facility] CO2 19(L) 22 - 33 mmol/L 01/18/2025 12:09 PM [facility] Calcium 8.8 8.7 - 10.5 mg/dL 01/18/2025 12:09 PM [facility] Alkaline Phosphatase 110 32 - 122 U/L 01/18/2025 12:09 PM [facility] Aspartate Aminotrans (AST) 46 10 - 50 U/L 01/18/2025 12:09 PM [facility] Alanine Aminotrans (ALT) 21 10 - 50 U/L 01/18/2025 12:09 PM [facility] Bilirubin, Total 0.5 0.2 - 1.0 mg/dL 01/18/2025 12:09 PM [facility] Protein, Total 6.6 6.3 - 8.3 g/dL 01/18/2025 12:09 PM [facility] Albumin 3.5 3.4 - 4.8 g/dL 01/18/2025 12:09 PM [facility] BUN/Creatinine Ratio 28(H) 10.0 - 25.0 Ratio 01/18/2025 12:09 PM [facility] Globulin 3.1 1.5 - 3.9 g/dL 01/18/2025 12:09 PM [facility] Albumin/Globulin Ratio 1.1 1.0 - 3.0 Ratio 01/18/2025 12:09 PM [facility] Anion Gap 16 7 - 17 01/18/2025 12:09 PM [facility] Blood Blood specimen / Unknown 01/18/2025 10:39 AM EDT 01/18/2025 11:17 AM EDT Deena Guajardo MD LAB BLOOD ORDERABL ES Final Result [address] [address], [address] [address] from Last 3 Months Insurance [facility] MEDICARE PART A & B MEDICARE PART A & B [facility] Advance Directives * Full Code (Latest Code Status on File) Date Activated Date Inactivated Comments 01/18/2025 2:04 PM Care Teams Chicken Cutter Relationship Specialty Start Date End Date Kenisha Ozuna MD [address] [place] [address] [place] [address] PCP - General Internal Medicine 01/19/25
== END 2025-03-19 09:39 | disposition home or self-care (01) ==
LOC: HO.MAMMO 09:38
PROVIDERS: Visit Provider Internal Medicine
DX: Z12.31 Encounter for screening mammogram for malignant neoplasm of breast (principal)
CPT/HCPCS: 77063; 77067

== ENCOUNTER → 2025-03-19 09:45 | Outpatient (BNV) | payer MEDICARE, OTHER, SELFPAY | PROVIDERS: Visit Provider Internal Medicine | DX: Z12.31 Encounter for screening mammogram for malignant neoplasm of breast (principal) | CPT/HCPCS: 77063; 77067 ==

== ENCOUNTER 2025-06-04 10:51 | Outpatient (AMB) | payer MEDICARE, OTHER, SELFPAY ==
--- NOTE | 2025-06-04 09:58 | A.OFFPC_ITS ---
Vital Signs 06/04/25 09:59 Height 5 ft 1 in Weight 78.018 kg BMI 32.5 BP 130/82 Blood Pressure Location Lt brachial Position Sitting Pulse 60 Pulse Source Pulse Oximeter Temp 97.7 F Temp Source Temporal Artery Scan Pulse Oximetry (%) 98 Oxygen Delivery Method Room Air Intake Visit Reasons: 3 Month F/U Rand Sewer Required: No Accompanied by: Self / Same As Patient Allergies hydroxychloroquine (Plaquenil) Allergy (Severe, Verified 06/04/25 09:59) Rash codeine (Codeine) Allergy (Intermediate, Verified 06/04/25 09:59) NAUSEA & VOMITING methotrexate Allergy (Intermediate, Verified 06/04/25 09:59) Diarrhea oxycodone Allergy (Intermediate, Verified 06/04/25 09:59) dizziness, nausea, vomiting tramadol Allergy (Intermediate, Verified 06/04/25 09:59) Diarrhea metronidazole Allergy (Unknown, Verified 06/04/25 09:59) Vomiting hydromorphone (From Dilaudid) Adverse Reaction (Verified 06/04/25 09:59) Vomiting Medication List - Last Reconciled 06/04/25 by CARIDAD Gonzales acetaminophen ER 650 mg PO Q8H PRN allopurinol 100 mg PO DAILY apixaban (Eliquis) 5 mg PO BID atorvastatin 20 mg PO DAILY baclofen 10 - 20 mg (1 - 2 x 10 mg) PO BEDTIME dapagliflozin propanediol (Farxiga) 10 mg PO DAILY furosemide 40 mg PO BID leflunomide 10 mg PO DAILY loperamide (Imodium A-D) 2 mg PO QID PRN metoprolol succinate ER 100 mg PO DAILY pantoprazole 40 mg PO DAILY vitamin B complex (B Complex-Vitamin B12 tablet) 1 tab PO DAILY [Vitamin D3 2,000 multiple units PO DAILY] Tobacco use date assessed: 06/04/25 Fall risk assessment: No Falls in past year Last assessed Fall Risk: 06/04/25 Dental Screening Dental Screen Date: 06/04/25 Did you have a dental visit in the last 12 months?: No Did you have a dental problem in the last 6 months where you did not have access to dental care?: No HPI HPI Comments History of Present Illness Details 69-year-old female with history of rheum atoid arthritis, hyperlipidemia, eczema, history of gout, history of DVT, CHF, IBS, osteoarthritis, polymyositis presenting to the office today for management of chronic conditions. Patient with recent hospitalization at after transfer [place] [facility]. Cardiogrenic versus septic shock. Also found to have strep B bacteremia, likely infected wound source. Reports recently, she has been experiencing rigors. She states about every 2-3 months, she has episodes of what she describes as rigors with urge incontinence and then is very fatigued sleeping up to 15 hours. She states that this has been ongoing intermittently for 2 years. CV: Follows with Dr Pastrana. Echocardiogram showed reduced LV systolic function with EF 45% and severe hypo to akinesis of the mid anterior, mid anterolateral, mid anteroseptal, and mid in the lateral segments. This will be repeated. She did undergo cardiac catheterization which was negative for any significant coronary artery disease. During stay, she had also developed new onset atrial fibrillation. She was discharged on 5 mg of Eliquis twice daily. 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 Eczema: Awaiting dermatology consultation. She does have history of strep B cellulitis from wound culture taken from legs. She has chronic severe eczema which responds well to prednisone but does not have a letter of credit clerk RA: She was following with rheumatology. She is on leflunomide. She has si gnificant neuropathy, numbness, tingling from the medications. She is scheduled to see rheumatology but not until Oct 2025 IBS: Previously following with Dr. Torres. Using Imodium PRN Concerns: Question of infection as above Weight gain-has gained 13 lb since last visit. Currently 98 lb which was her baseline prior to hospitalization for CHF exacerbation with large amount of diuresis. However, she denies any orthopnea, dyspnea on exertion, worsening edema. She states that she has not changed her diet, not exercising regularly. She does take her Lasix twice daily. Has difficulty with compression stockings Health maintenance: Last screening mammogram 03/2025 with 1 year follow-up advised Colonoscopy 2018 Dr Garrett, 10 year follow-up ROS: See HPI EXAM: Constitutional - Awake and Alert, No apparent distress Eyes - PERRL Cardiovascular - S1S2, RRR, No edema Respiratory - Normal lung expansion, Normal respiratory effort, No respiratory distress, CTA bilaterally Extremities - no calf tenderness bilaterally, no swelling Skin - Warm/Dry Neurological - Alert & oriented x3 Psychological - Appropriate affect [facility] Medical History (Updated 06/04/25 @ 11:23 by CARIDAD Gonzales) Diarrhea Congestive heart failure Atrial fibrillation Septic shock Group B streptococcal bacteriuria IBS (irritable bowel syndrome) History of cellulitis Elevated cholesterol HTN (hypertension) PONV (postoperative nausea and vomiting) Colon cancer screening Eczema DVT (deep venous thrombosis) Cough Primary osteoarthritis, right hand Primary osteoarthritis, left hand Gout Polymyositis Surgical History Hx of shoulder surgery (11/22/23) History of back surgery (~2019) Hx of endoscopy H/O colonoscopy (~02/11/19) Family History Mother No problems noted. Father No problems noted. 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 1. Little interest or pleasure in doing things: not at all 2. Feeling down, depressed, or hopeless: not at all 3. Trouble falling or staying asleep, or sleeping too much: not at all 4. Feeling tired or having little energy: not at all 5. Poor appetite or overeating: not at all 6. Feeling bad about yourself - or that you are a failure or have let yourself or your family down: not at all 7. Trouble concentrating on things, such as reading the newspaper or watching television: not at all 8. Moving or speaking so slowly that other people could have noticed. Or the opp osite - being so fidgety or restless that you have been moving around a lot more than usual: not at all 9. Thoughts that you would be better off or of hurting yourself in some way: not at all Total score: 0 Source: Developed by Drs. Broderick Paez, Camryn Hadley, Porfirio Acosta and colleagues, with an educational vero from [employer]. Thrive Questionnaire Date Thrive assessed: 06/04/25 I am a: Patient Within the past 12 months, did the food you bought not last and you didn't have the money to get more?: Never true Within the past 12 months, did you worry whether your food would run out before you got money to buy more?: Never true Do you have trouble paying for medicines?: No Do you have trouble getting transportation to medical appointments?: No Do you have trouble paying your heating and electricity bill?: No Do you have trouble taking care of your child, family member or friend?: No Do you have trouble with day-to-day activities such as bathing, preparing meals, shopping, managing finances, etc.?: No Are you currently unemployed and looking for a job?: No Are you interested in more education?: No THRIVE Score: 0 AUDIT C Alcohol Use Questionnaire (AUDIT-C) 1. How often do you have a drink containing alcohol?: Never 3. How often do you have six or more drinks on one occasion?: Never Total Score: 0 GHANSHYAM-7 AMB Questionnaire GHANSHYAM-7 Date GHANSHYAM - 7 assessed: 06/04/25 Feeling nervous, anxious, or on edge: 0 = Not at all Not being able to stop or control worryin = Not at all Worrying too much about different things: 0 = Not at all Trouble relaxin = Not at all Being so restless that it is hard to sit still: 0 = Not at all Becoming easily annoyed or irritable: 0 = Not at all Feeling afraid as if something awful might happen: 0 = Not at all Total GHANSHYAM-7 score (0-4 normal; 5-9 mild; 10-14 moderate; 15-21 severe): 0 Source: Developed by Drs. Broderick Paez, Camryn Hadley, Porfirio Acosta and colleagues, with an educational vero from [employer]. Physical exam (Primary Care) Vital Signs: Last Vital Signs Temp 97.7 F 06/04/25 09:59 Pulse 60 06/04/25 09:59 BP 130/82 06/04/25 09:59 Pulse Ox 98 06/04/25 09:59 Oxygen Delivery Method Room Air 06/04/25 09:59 BMI result Body Mass Index 32.5 Tobacco/Smoking Status: Tobacco use Status Tobacco use date assessed 06/04/25 06/04/25 10:00 Patient Tobacco Use Status Never used Tobacco 06/04/25 10:00 e-Cigarette/Vaping Use Never Used 06/04/25 10:00 PHQ-9: PHQ-9 Score PHQ-9: Total score 0 06/04/25 11:02 Thrive Assessment: Date of Thrive Assessment Date Thrive assessed 06/04/25 06/04/25 10:00 Coding Level of Care Code Est Pt Level 4 (89658) Complex EM visit Add On G2211 Diagnoses Primary hypertension I10 Hypertension type: primary hypertension Paroxysmal atrial fibrillation I48.0 Atrial fibrillation type: paroxysmal IBS (irritable bowel syndrome) K58.9 Urinary incontinence R32 Rigors R68.89 Chronic congestive heart failure, unspecified heart failure type I50.9 Heart failure chronicity: chronic Heart failure type: unspecified Assessment & Plan Assessment & Plan (1) HTN (hypertension): Code(s): I10 - Essential (primary) hypertension Category: Medical Qualifiers: Hypertension type: primary hypertension Qualified Code(s): I10 - Essential (primary) hypertension Plan: Controlled. Continue current therapies (2) Atrial fibrillation: Code(s): I48.91 - Unspecified atrial fibrillation Category: Medical Qualifiers: Atrial fibrillation type: paroxysmal Qualified Code(s): I48.0 - Paroxysmal atrial fibrillation Plan: Rate controlled. Continue Eliquis for anticoagulation as well as metoprolol (3) IBS (irritable bowel syndrome): Code(s): K58.9 - Irritable bowel syndrome, unspecified Category: Medical Plan: Uncontrolled at times. Imodium as needed. Advised to schedule follow-up with Dr. Torres, referral placed in place this is needed (4) Urinary incontinence: Code(s): R32 - Unspecified urinary incontinence Category: Medical Plan: Urge incontinence. However, she is concerned about infection. Will evaluate UA. Should this be negative, interested in referral to Urology (5) Rigors: Code(s): R68.89 - Other general symptoms and signs Category: Medical Plan: We will check blood cultures given history (6) Congestive heart failure: Code(s): I50.9 - Heart failure, unspecified Category: Medical Qualifiers: Heart failure chronicity: chronic Heart failure type: unspecified Qualified Code(s): I50.9 - Heart failure, unspecified Plan: Clinically euvolemic. Continue following with Cardiology. Continue metoprolol, Lasix, Farxiga Plan Follow-up in the office in 6 months, labs to be completed following today's visit Orders: Orders Blood Culture X2 Today R32 - Unspecified urinary incontinence, R68.89 - Other general symptoms and signs UA CC w/rflx Micro + Cult Today R32 - Unspecified urinary incontinence, R68.89 - Other general symptoms and signs Complete Blood Count Auto Diff Today D64.9 - Anemia, unspecified, I10 - Essential (primary) hypertension, I48.0 - Paroxysmal atrial fibrillation IRON PROFILE Today D64.9 - Anemia, unspecified, I10 - Essential (primary) hypertension, I48.0 - Paroxysmal atrial fibrillation TSH reflex Free T4 Today D64.9 - Anemia, unspecified, I10 - Essential (primary) hypertension, I48.0 - Paroxysmal atrial fibrillation Basic Metabolic Panel Today D64.9 - Anemia, unspecified, I10 - Essential (primary) hypertension, I48.0 - Paroxysmal atrial fibrillation Referrals Gastroenterology Referral D64.9 - Anemia, unspecified, I10 - Essential (primary) hypertension, I48.0 - Paroxysmal atrial fibrillation, K58.9 - Irritable bowel syndrome, unspecified, R19.7 - Diarrhea, unspecified
[2025-06-04 09:59] VITALS: BP 130/82; PULSE 60; TEMP 36.5; O2SAT 98; BMI 32.5
--- OUTSIDE RECORDS SUMMARY | 2025-06-04 12:33 | XMS_ITS | Patient Health Record ---
Author Organization [facility] Address [address] [place] [address] Care Team Providers Care Ep Tech Name Role Phone Janny NAVARRO, Deb Primary [...] Insured Coverage Start Date Coverage End Date [facility] [address] [place] [phone] [id number] EMMETT JUÁREZ Self - patient is the insured Medical (General) History Medical History History ICD Code hypertension Denies MO,DM,CVA,Lung disease,renal dise ase Gout myositis hx of celulitis IBS Surgical History Surgery Date(Month/Year)
--- OUTSIDE RECORDS SUMMARY | 2025-06-04 12:33 | XMS_ITS | Clinical Summary ---
Author Organization [facility] Facility Address [address] [place] [address] Care Team Providers Care Specialty Development Consultant Name Role Phone Deb Soliman MD Primary Care Provider [phone] Medications metoprolol tartrate (LOPRESSOR) 50 MG tablet [...] age to complete this topic Care Teams Specialty Development Consultant Relationship Specialty Start Date End Date Deb Soliman MD [address] [place] [address] [address] [place] [address] PCP - General 09/19/20
--- OUTSIDE RECORDS SUMMARY | 2025-06-04 12:33 | XMS_ITS | Clinical Summary ---
Author Organization [facility] Address [address] [place] [address] Care Team Providers Care Dinkey Dispatcher Name Role Phone Kenisha Ozuna MD Primary Care Provider [phone] Allergies Active Allergy Reactions Criticality Noted Date [...] subsegmental atelectasis. Minimal interstitial pulmonary edema. BNP 01734 Trop 647 -> 542 SBP 105 - Per interventional cardiology plan for RHC/LHC +/- PCI 01/20 and plan for n.p.o. at midnight - [id number] 2 - Continue heparin GTT - Aspirin [...] subsegmental atelectasis. Minimal interstitial pulmonary edema. BNP 88698 Trop 647 -> 542 SBP 105 - Per interventional cardiology plan for RHC/LHC +/- PCI 01/20 and plan for n.p.o. at midnight - [id number] 2 - Continue heparin GTT - Aspirin [...] subsegmental atelectasis. Minimal interstitial pulmonary edema. BNP 88734 Trop 647 -> 542 SBP 105 - Per interventional cardiology plan for RHC/LHC +/- PCI 01/20 and plan for n.p.o. at midnight - [id number] 2 - Continue heparin GTT - Aspirin [...] subsegmental atelectasis. Minimal interstitial pulmonary edema. BNP 03890 Trop 647 -> 542 SBP 105 - Per interventional cardiology plan for RHC/LHC +/- PCI 01/20 and plan for n.p.o. at midnight - [id number] 2 - Continue heparin GTT - Aspirin [...] subsegmental atelectasis. Minimal interstitial pulmonary edema. BNP 50665 Trop 647 -> 542 SBP 105 - Per interventional cardiology plan for RHC/LHC +/- PCI 01/20 and plan for n.p.o. at midnight - [id number] 2 - Continue heparin GTT - Aspirin 81 mg once daily - Lipitor 80 mg once daily - Lasix 40 mg IV twice daily - Lopressor 20 mg twice daily - Lipids in a.m. - Strict I's and O's, daily weights, telemetry - K>4 and Mg >2 Social History Tobacco Use Types Packs/Day Years Used Date Smoking Tobacco: Never Smokeless Tobacco: Never Tobacco Cessation:Counseling Given: Not Answered Alcohol Use Standard Drinks/Week Comments Not Currently 0 (1 standard drink = 0.6 oz pur e alcohol) [facility] Utilities Answer Date Recorded In the past 12 months has e electric, gas, oil, or water [employer] threatened to shut off services in your [...] any time in the past 12 m [facility], were you homeless or living in a retirement (including now)? No 01/19/2025 Comments Unknown Sex [...] Health Maintenance Due Date Last Done Comments Advance Care Planning 1955 Hepatitis C Virus Screening 1955 COVID-19 Vaccine [...] on patient's age to complete this topic Insurance [facility] MEDICARE PART A & B MEDICARE PART A & B [facility] Advance Directives * Full Code (Latest Code Status on File) Date Activated Date Inactivated Comments 01/18/2025 2:04 PM Care Teams Dinkey Dispatcher Relationship Specialty Start Date End Date Kenisha Ozuna MD [address] [place] [phone] PCP - General Internal Medicine 01/19/25
== END 2025-06-04 11:32 | disposition home or self-care (01) ==
LOC: HO.HMCHD 10:51
PROVIDERS: PCP Internal Medicine; Visit Provider Physician Assistant
DX: I10 Essential (primary) hypertension (principal); I48.0 Paroxysmal atrial fibrillation; K58.9 Irritable bowel syndrome, unspecified; R32 Unspecified urinary incontinence; R68.89 Other general symptoms and signs; I50.9 Heart failure, unspecified

== ENCOUNTER → 2025-06-04 10:51 | Outpatient (BNVA) | payer MEDICARE, OTHER, SELFPAY | PROVIDERS: PCP Internal Medicine; Visit Provider Physician Assistant | DX: I11.0 Hypertensive heart disease with heart failure (principal); I50.9 Heart failure, unspecified; I48.0 Paroxysmal atrial fibrillation; K58.9 Irritable bowel syndrome, unspecified; R32 Unspecified urinary incontinence; R68.89 Other general symptoms and signs; D64.9 Anemia, unspecified; Z79.01 Long term (current) use of anticoagulants; Z79.899 Other long term (current) drug therapy; Z13.30 Encounter for screening examination for mental health and behavioral disorders, unspecified; Z13.39 Encounter for screening examination for other mental health and behavioral disorders | CPT/HCPCS: 96127; 99212 ==

== ENCOUNTER 2025-06-04 11:39 | Outpatient (REF) | payer MEDICARE, OTHER, SELFPAY ==
[2025-06-04 11:58] LABS: MANUAL DIFF FLAG NO
[2025-06-04 12:27] LABS: Hematocrit 37.6 % (37.0-47.0); Hemoglobin 12.4 g/dl (12.0-16.0); Imm Gran Abs Auto 0.02 X10*3/uL (0.00-0.03); Imm Gran Pct Auto 0.3 % (0.0-0.4); Lymphocytes Absolute Auto 1.7 X10*3/uL (1.2-4.9); Mean Corpuscular HGB Conc 33.0 g/dl (31.0-35.0); Mean Corpuscular Hemoglobin 31.6 pg (27.0-33.0); Mean Corpuscular Volume 95.9 fL (80.0-98.0); NRBC Abs Auto 0.000 X10*3/uL (0.0-0.012); NRBC Pct Auto 0.0 /100WBC (0.0-0.2); Platelet Count 242 X10*3/uL (160-400); Red Blood Count 3.92 X10*6/uL (4.20-5.50); White Blood Count 5.8 X10*3/uL (4.8-10.8)
[2025-06-04 12:37] LABS: Appearance Urine Clear; Glucose Urine UA 250 mg/dL (Negative); PH 5.5 (5.0-9.0); Specific Gravity - Urine <= 1.005 (1.005-1.025)
[2025-06-04 12:58] LABS: Anion Gap 12 (12-20); Blood Urea Nitrogen 26 mg/dL (9-16); Calcium 9.5 mg/dL (8.4-10.2); Carbon Dioxide 28 mmol/L (22-29); Chloride 109 mmol/L (96-108); Estimated Glomerular Filt Rate 49; Iron 61 mcg/dL (30-160); Percent Iron Saturation 28 % (15-50); Potassium 3.4 mmol/L (3.3-5.1); Sodium 146 mmol/L (135-145); Total Iron Binding Capacity 217 mcg/dL (228-428); Unsaturated Iron Binding 156 ug/dL
== END 2025-06-04 11:40 | disposition home or self-care (01) ==
LOC: HO.LAB 11:39
PROVIDERS: Visit Provider Physician Assistant
DX: I10 Essential (primary) hypertension (principal); R32 Unspecified urinary incontinence; R68.89 Other general symptoms and signs; I48.0 Paroxysmal atrial fibrillation; D64.9 Anemia, unspecified
CPT/HCPCS: 36415; 80048; 81003; 83540; 84443; 85025; 87040

== ENCOUNTER 2025-06-11 13:37 | Outpatient (REF) | payer MEDICARE, OTHER, SELFPAY ==
--- OUTSIDE RECORDS SUMMARY | 2025-06-11 19:36 | XMS_ITS | Clinical Summary ---
Author Organization [facility] Facility Address [address] [place] [address] Care Team Providers Care Route Driver Name Role Phone Deb Soliman MD Primary Care Provider [phone] Medications metoprolol tartrate (LOPRESSOR) 50 MG tablet [...] age to complete this topic Care Teams Route Driver Relationship Specialty Start Date End Date Deb Soliman MD [address] [place] [address] [address] [place] [address] PCP - General 09/19/20
[2025-06-11 20:27] LABS: Resp Syncy Virus RNA Qual PCR NEGATIVE (Negative); SARS COV2 PCR INHOUSE NEGATIVE (Negative)
== END 2025-06-11 13:38 | disposition home or self-care (01) ==
LOC: HO.LNP 13:37
PROVIDERS: PCP Internal Medicine; Visit Provider Nurse Practitioner Family
DX: R50.9 Fever, unspecified (principal); G62.9 Polyneuropathy, unspecified
CPT/HCPCS: 87637; 99212

== ENCOUNTER 2025-06-11 13:37 | Outpatient (AMB) | payer MEDICARE, OTHER, SELFPAY ==
--- OUTSIDE RECORDS SUMMARY | 2025-06-11 13:52 | XMS_ITS | Patient Health Record ---
Author Organization [facility] Address [address] [place] [address] Care Team Providers Care Suspender Maker Name Role Phone Janny NAVARRO, Deb Primary [...] Insured Coverage Start Date Coverage End Date [facility] [address] [place] [phone] [id number] EMMETT JUÁREZ Self - patient is the insured Medical (General) History Medical History History ICD Code hypertension Denies HI,DM,CVA,Lung disease,renal dise ase Gout myositis hx of celulitis IBS Surgical History Surgery Date(Month/Year)
--- OUTSIDE RECORDS SUMMARY | 2025-06-11 13:52 | XMS_ITS | Encounter Summary ---
Author Organization [facility] Address [address] [place] [id number] Care Team Providers Care Safety Engineer [employer] Name Role Phone Kenisha Ozuna MD Primary Care Provider [phone] Encounter Details Date Type Department Care Team (Late st Contact Info) Description 06/09/2025 Scanned Document [facility] CARDIOLOGY SCAN Cardiology, Scan Social History Tobacco Use Types Packs/Day Years Used Date Smoking Tobacco: Never Smokeless Tobacco: Never Alcohol Use Standard Drinks/Week Comments Not Currently 0 (1 standard drink = 0.6 oz pur e alcohol) [facility] Utilities Answer Date Recorded In the past 12 months has [employer] electric, gas, oil, or water [employer] threatened to shut off services in your [...] any time in the past 12 m [facility], were you homeless or living in a [facility] (including now)? No 01/19/2025 Comments Unknown Sex and Gender Information Value Date Recorded Sex Assigned at Female 01/18/2025 10:27 AM EDT Legal Sex Female 9:33 AM EDT Gender Identity Female 01/18/2025 10:27 AM EDT Sexual Orientation Heterosexual (straight) 01/18 10:27 AM EDT documented as of this encounter Plan of Treatment Not on file documented as of this encounter Visit Diagnoses Not on filedocumented in this encounter Care Teams Safety Engineer [employer] Vessels Relationship Specialty Start Date End Date Kenisha Ozuna MD [address] [place] [address] [place] [address] PCP - General Internal Medicine 01/19/25 documented as of this encounter
--- OUTSIDE RECORDS SUMMARY | 2025-06-11 13:52 | XMS_ITS ---
Author Name [facility] Organization Unknown Results Test Name/Text Value Interpretation Date Range Source Potassium SerPl-sCnc 3.9 mmol/L Normal 02/09/2025 3.5 - 5.3 [facility] BUN SerPl-mCnc 52.0 mg/dL Above high normal 02/09/2025 7 - 2 5 [facility] Creat SerPl-mCnc 1.07 mg/dL Above high normal 02/09/2025 0.5 - 1.05 [facility] Sodium SerPl-sCnc 140.0 mmol/L Normal 02/09/2025 135 - 14 6 [facility] eGFRcr SerPlBld CKD-EPI 2020 56.0 mL/min/1.73m2 Below low normal 02/09/2025 - [facility] Glucose SerPl-mCnc 80.0 mg/dL Normal 02/09/2025 65 - 99 [facility] Chloride SerPl-sCnc 103.0 mmol/L Normal 02/09/2025 98 - 1 10 [facility] Calcium SerPl-mCnc 9.4 mg/dL Normal 02/09/2025 8.6 - 10.4 [facility] BUN/Creat SerPl 49.0 (calc) Above high normal 02/09/2025 6 - 22 [facility] CO2 SerPl-sCnc 24.0 mmol/L Normal 02/09/2025 20 - 32 [facility] ISTAT BNP 513.0 pg/mL Above high normal 01/29/2025 0 - 99 H[facility]CT ISTAT Chloride 106.0 mmol/L 01/29/2025 98 - 107 H HCCT ISTAT BUN 49.0 mg/dL Above high normal 01/29/2025 8 - 21 HHCCT ISTAT Potassium 3.3 mmol/L Below low normal 01/29/2025 3.4 - 5.3 HHCCT ISTAT Sodium 141.0 mmol/L 01/29/2025 136 - [address] ISTAT Hemoglobin 12.6 gm/dL 01/29/2025 11.7 - 15.7 HHCCT ISTAT Hematocrit 37.0 % 01/29/2025 35 - 47 HH CCT ISTAT ESTIMATED GFR 41.0 Below low normal 01/29/2025 59 - HHCCT ISTAT CREATININE 1.4 mg/dL Above high normal 01/29/2025 0.4 - 1.1 HHCCT ISTAT Glucose 133.0 mg/dL Above high normal 01/29/2025 65 - 99 HHCCT ISTAT TCO2, Venous 25.0 mmol/L 01/29/2025 22 - 33 HHCCT Magnesium SerPl-mCnc 2.0 mg/dL 01/23/2025 1.6 - 2.7 HHCCT CO2 SerPl-sCnc 27.0 mmol/L 01/23/2025 22 - 33 HH CCT Anion Gap Bld-sCnc 15.0 01/23/2025 7 - 17 HHCCT Chloride SerPl-sCnc 100.0 mmol/L 01/23/2025 98 - 1 07 HHCCT Calcium SerPl-mCnc 9.3 mg/dL 01/23/2025 8.7 - 10.5 HHCCT Creat SerPl-mCnc 1.3 mg/dL Above high normal 01/23/2025 0.4 - 1.1 HHCCT BUN/Creat SerPl 25.0 Ratio 01/23/2025 10 - 25 HH CCT GFR/BSA.pred SerPlBld [id number] 45.0 Below low normal 01/23/2025 59 - HHCCT Glucose SerPl-mCnc 88.0 mg/dL 01/23/2025 65 - 99 HHCCT Sodium SerPl-sCnc 142.0 mmol/L 01/23/2025 136 - 14 5 HHCCT Potassium SerPl-sCnc 3.8 mmol/L 01/23/2025 3.4 - 5.3 HHCCT BUN SerPl-mCnc 32.0 mg/dL Above high normal 01/23/2025 8 - 2 1 HHCCT Creat SerPl-mCnc 1.0 mg/dL 01/22/2025 0.4 - 1.1 HH CCT Anion Gap Bld-sCnc 15.0 01/22/2025 7 - 17 HHCCT Chloride SerPl-sCnc 101.0 mmol/L 01/22/2025 98 - 1 07 HHCCT BUN SerPl-mCnc 25.0 mg/dL Above high normal 01/22/2025 8 - 2 1 HHCCT Potassium SerPl-sCnc 4.1 mmol/L 01/22/2025 3.4 - 5.3 HHCCT Glucose SerPl-mCnc 82.0 mg/dL 01/22/2025 65 - 99 HHCCT CO2 SerPl-sCnc 27.0 mmol/L 01/22/2025 22 - 33 HH CCT Calcium SerPl-mCnc 10.1 mg/dL 01/22/2025 8.7 - 10. 5 HHCCT GFR/BSA.pred SerPlBld [id number] 61.0 01/22/2025 59 - HHCCT Sodium SerPl-sCnc 143.0 mmol/L 01/22/2025 136 - 14 5 HHCCT BUN/Creat SerPl 25.0 Ratio 01/22/2025 10 - 25 HH CCT Magnesium SerPl-mCnc 2.1 mg/dL 01/22/2025 1.6 - 2.7 HHCCT MCHC RBC Auto-mCnc 32.5 g/dL 01/22/2025 30 - 36 HHCCT RDW RBC Auto-Rto 14.7 % Above high normal 01/22/2025 11.5 - 14.5 HHCCT Hct VFr Bld Auto 38.1 % 01/22/2025 35 - 47 HH CCT PMV Bld Auto 10.0 fL 01/22/2025 7.5 - 12.5 HHCCT MCH RBC Qn Auto 30.9 pg 01/22/2025 27 - [address] WBC num Bld Auto 6.8 Thou/uL 01/22/2025 4 - 11 HHCCT Platelet num Bld Auto 257.0 Thou/uL 01/22/2025 150 - 450 HHCCT MCV RBC Auto 95.0 fL 01/22/2025 80 - 100 HHCCT Hgb Bld-mCnc 12.4 g/dL 01/22/2025 11.7 - 15.7 HHCC T RBC num Bld Auto 4.01 Mil/uL 01/22/2025 4 - 5.4 HHCCT Anion Gap Bld-sCnc 12.0 01/21/2025 7 - 17 HHCCT Calcium SerPl-mCnc 9.5 mg/dL 01/21/2025 8.7 - 10.5 HHCCT Chloride SerPl-sCnc 103.0 mmol/L 01/21/2025 98 - 1 07 HHCCT Potassium SerPl-sCnc 3.7 mmol/L 01/21/2025 3.4 - 5.3 HHCCT Creat SerPl-mCnc 0.8 mg/dL 01/21/2025 0.4 - 1.1 HH CCT Glucose SerPl-mCnc 76.0 mg/dL 01/21/2025 65 - 99 HHCCT CO2 SerPl-sCnc 25.0 mmol/L 01/21/2025 22 - 33 HH CCT BUN/Creat SerPl 20.0 Ratio 01/21/2025 10 - 25 HH CCT GFR/BSA.pred SerPlBld [id number] 80.0 01/21/2025 59 - HHCCT BUN SerPl-mCnc 16.0 mg/dL 01/21/2025 8 - [address] Sodium SerPl-sCnc 140.0 mmol/L 01/21/2025 136 - 14 5 HHCCT Magnesium SerPl-mCnc 1.7 mg/dL 01/21/2025 1.6 - 2.7 HHCCT LMWH PPP Retirement Plan Specialist-aCnc 0.75 IU/mL 01/20/2025 HHCCT Anticoagulant IV HEPARIN, UNFRACTIONATED 01/20/2025 HHCCT LMWH PPP Retirement Plan Specialist-aCnc 0.43 IU/mL 01/20/2025 HHCCT Anticoagulant IV HEPARIN, UNFRACTIONATED 01/20/2025 HHCCT pro BNP, N-terminal 33739.0 pg/mL Above high normal 01/21/20 25 - 125 HHCCT HDLc SerPl-mCnc 52.0 mg/dL 01/20/2025 39 - HH CCT Trigl SerPl-mCnc 117.0 mg/dL 01/20/2025 - 150 HHCCT Cholest SerPl-mCnc 126.0 mg/dL 01/20/2025 - 200 HHCCT LDLc SerPl Calc-mCnc 51.0 mg/dL 01/20/2025 - 130 HHCCT HDLc SerPl 2.4 Ratio 01/20/2025 0 - 5 HHCCT Magnesium SerPl-mCnc 1.7 mg/dL 01/20/2025 1.6 - 2.7 HHCCT Chloride SerPl-sCnc 108.0 mmol/L Above high normal 98 - 107 HHCCT Anion Gap Bld-sCnc 12.0 01/20/2025 7 - 17 HHCCT CO2 SerPl-sCnc 24.0 mmol/L 01/20/2025 22 - 33 HH CCT BUN SerPl-mCnc 20.0 mg/dL 01/20/2025 8 - [address] Glucose SerPl-mCnc 71.0 mg/dL 01/20/2025 65 - 99 HHCCT Potassium SerPl-sCnc 3.6 mmol/L 01/20/2025 3.4 - 5.3 HHCCT Sodium SerPl-sCnc 144.0 mmol/L 01/20/2025 136 - 14 5 HHCCT Creat SerPl-mCnc 0.9 mg/dL 01/20/2025 0.4 - 1.1 HH CCT Calcium SerPl-mCnc 9.3 mg/dL 01/20/2025 8.7 - 10.5 HHCCT GFR/BSA.pred SerPlBld [id number] 69.0 01/20/2025 59 - HHCCT BUN/Creat SerPl 22.0 Ratio 01/20/2025 10 - 25 HH CCT Hct VFr Bld Auto 34.2 % Below low normal 01/20/2025 35 - 47 HHCCT MCV RBC Auto 98.0 fL 01/20/2025 80 - 100 HHCCT WBC num Bld Auto 6.9 Thou/uL 01/20/2025 4 - 11 HHCCT MCH RBC Qn Auto 30.9 pg 01/20/2025 27 - [address] RBC num Bld Auto 3.49 Mil/uL Below low normal 01/20/2025 4 - 5.4 HHCCT PMV Bld Auto 10.0 fL 01/20/2025 7.5 - 12.5 HHCCT Hgb Bld-mCnc 10.8 g/dL Below low normal 01/20/2025 11.7 - 15 .7 HHCCT MCHC RBC Auto-mCnc 31.6 g/dL 01/20/2025 30 - 36 HHCCT RDW RBC Auto-Rto 15.3 % Above high normal 01/20/2025 11.5 - 14.5 HHCCT Platelet num Bld Auto 178.0 Thou/uL 01/20/2025 150 - 450 HHCCT LMWH PPP Retirement Plan Specialist-aCnc 0.53 IU/mL 01/20/2025 HHCCT Anticoagulant IV HEPARIN, UNFRACTIONATED 01/20/2025 [facility] PPP Retirement Plan Specialist-aCnc 0.39 IU/mL 01/20/2025 [facility] Anticoagulant IV HEPARIN, UNFRACTIONATED 01/19/2025 [facility] LMWH PPP Retirement Plan Specialist-aCnc 0.26 IU/mL 01/19/2025 HHCCT Anticoagulant IV HEPARIN, UNFRACTIONATED 01/19/2025 HHCCT Folate SerPl-mCnc >20.0 ng/mL 01/19/2025 7.2 - HHCCT Vit B12 SerPl-mCnc 520.0 pg/mL 01/19/2025 243 - 89 4 HHCCT Potassium SerPl-sCnc 4.0 mmol/L 01/19/2025 3.4 - 5.3 HHCCT Iron Satn MFr SerPl 12.0 % Below low normal 01/19/2025 20 - 50 HHCCT TIBC SerPl-mCnc 172.0 ug/dL 01/19/2025 100 - 400 H HCCT Iron SerPl-mCnc 21.0 ug/dL Below low normal 01/19/2025 59 - 151 HHCCT UIBC SerPl-mCnc 151.0 ug/dL 01/19/2025 112 - 346 H HCCT Magnesium SerPl-mCnc 2.2 mg/dL 01/19/2025 1.6 - 2.7 HHCCT LMWH PPP Retirement Plan Specialist-aCnc 0.28 IU/mL 01/19/2025 HHCCT Anticoagulant IV HEPARIN, UNFRACTIONATED 01/19/2025 HHCCT Est. average glucose Bld gHb Est-mCnc 105.0 mg/dL 01/19/2025 HHCCT Hgb A1c MFr Bld 5.3 % 01/19/2025 - 5.[address] Magnesium SerPl-mCnc 1.7 mg/dL 01/19/2025 1.6 - 2.7 HHCCT BUN/Creat SerPl 29.0 Ratio Above high normal 01/19/2025 10 - 25 HHCCT Glucose SerPl-mCnc 83.0 mg/dL 01/19/2025 65 - 99 HHCCT Chloride SerPl-sCnc 108.0 mmol/L Above high normal 98 - 107 HHCCT Sodium SerPl-sCnc 143.0 mmol/L 01/19/2025 136 - 14 5 HHCCT GFR/BSA.pred SerPlBld [id number] 80.0 01/19/2025 59 - HHCCT Calcium SerPl-mCnc 9.0 mg/dL 01/19/2025 8.7 - 10.5 HHCCT CO2 SerPl-sCnc 25.0 mmol/L 01/19/2025 22 - 33 HH CCT BUN SerPl-mCnc 23.0 mg/dL Above high normal 01/19/2025 8 - 2 1 HHCCT Potassium SerPl-sCnc 3.3 mmol/L Below low normal 01/19/2025 3.4 - 5.3 HHCCT Anion Gap Bld-sCnc 10.0 01/19/2025 7 - 17 HHCCT Creat SerPl-mCnc 0.8 mg/dL 01/19/2025 0.4 - 1.1 HH CCT Platelet num Bld Auto 192.0 Thou/uL 01/19/2025 150 - 450 HHCCT WBC num Bld Auto 10.9 Thou/uL 01/19/2025 4 - 11 HHCCT MCHC RBC Auto-mCnc 31.8 g/dL 01/19/2025 30 - 36 HHCCT MCV RBC Auto 98.0 fL 01/19/2025 80 - 100 HHCCT PMV Bld Auto 10.0 fL 01/19/2025 7.5 - 12.5 HHCCT MCH RBC Qn Auto 31.3 pg Above high normal 01/19/2025 27 - 31 HHCCT Hgb Bld-mCnc 10.0 g/dL Below low normal 01/19/2025 11.7 - 15 .7 HHCCT RDW RBC Auto-Rto 15.1 % Above high normal 01/19/2025 11.5 - 14.5 HHCCT Hct VFr Bld Auto 31.4 % Below low normal 01/19/2025 35 - 47 HHCCT RBC num Bld Auto 3.19 Mil/uL Below low normal 01/19/2025 4 - 5.4 HHCCT LMWH PPP Retirement Plan Specialist-aCnc 0.27 IU/mL 01/19/2025 HHCCT Anticoagulant IV HEPARIN, UNFRACTIONATED 01/19/2025 HHCCT Lactate SerPl-sCnc 1.4 mmol/L 01/18/2025 0.5 - 1.9 HHCCT pro BNP, N-terminal 43192.0 pg/mL Above high normal 01/19/20 25 - 125 HHCCT Result Not Detected 01/18/2025 - CCT Influenza virus A in upper resp spec by ESSIE with probe detection Not Detected 01/18/2025 HHCCT Respiratory syncytial virus RNA in upper resp spec by ESSIE with probe detection Not Detected 01/18/2025 HHCCT Comment Negative results do not preclude SARS-CoV-2, Influenza or RSV infection and should not be used as the sole basis for treatment or other patient management decisions. 01/18/2025 CCT Influenza virus B in upper resp spec by ESSIE with probe detection Not Detected 01/18/2025 HHCCT 2019-nCOV RNA Not Detected 01/18/2025 HH CCT Glucose Ur Strip-mCnc 0.0 mg/dL 01/18/2025 0 - 99 HHCCT Clarity Ur Clear 01/18/2025 HHCCT Ketones Ur Strip-mCnc Negative 01/18/2025 - HHCCT Prot Ur Strip-mCnc Negative 01/18/2025 - HHCCT Nitrite Ur Ql Strip Negative 01/18/2025 - HHCCT Leukocyte esterase Ur Ql Strip Negative 01/18/2025 - HHCCT Sp Gr Ur Strip 1.014 01/18/2025 1.003 - 1.03 HHCCT WBC num/area UrnS HPF 0.0 per hpf 01/18/2025 0 - 4 HHCCT pH Ur Strip 6.0 01/18/2025 5 - 8 HHCCT Bilirub Ur Strip-mCnc Negative 01/18/2025 - HHCCT Hgb Ur Ql Strip Negative 01/18/2025 - HHC CT Color Ur Straw 01/18/2025 HHCCT RBC num/area UrnS HPF 1.0 per hpf 01/18/2025 0 - 4 HHCCT POC Glucose 96.0 mg/dL 01/18/2025 65 - 99 HHCCT LMWH PPP Retirement Plan Specialist-aCnc 0.69 IU/mL 01/18/2025 HHCCT Anticoagulant IV HEPARIN, UNFRACTIONATED 01/18/2025 HHCCT Troponin T SerPl-mCnc 542.0 ng/L Critically high 01/18/2025 - 15 HHCCT Delta 105.0 Above high normal 01/18/2025 - 3 H HCCT Lactate SerPl-sCnc 2.7 mmol/L Above high normal 01/18/2025 0 .5 - 1.9 HHCCT Magnesium SerPl-mCnc 1.5 mg/dL Below low normal 01/18/2025 1.6 - 2.7 HHCCT BUN/Creat SerPl 28.0 Ratio Above high normal 01/18/2025 10 - 25 HHCCT GFR/BSA.pred SerPlBld [id number] 69.0 01/18/2025 59 - HHCCT BUN SerPl-mCnc 25.0 mg/dL Above high normal 01/18/2025 8 - 2 1 HHCCT CO2 SerPl-sCnc 19.0 mmol/L Below low normal 01/18/2025 22 - 33 HHCCT Globulin Ser Calc-mCnc 3.1 g/dL 01/18/2025 1.5 - 3.9 HHCCT Sodium SerPl-sCnc 141.0 mmol/L 01/18/2025 136 - 14 5 HHCCT Glucose SerPl-mCnc 112.0 mg/dL Above high normal 01/18/2025 65 - 99 HHCCT ALT SerPl-cCnc 21.0 U/L 01/18/2025 10 - 50 HHCC T Anion Gap Bld-sCnc 16.0 01/18/2025 7 - 17 HHCCT Albumin/Glob SerPl 1.1 Ratio 01/18/2025 1 - 3 HHCCT Calcium SerPl-mCnc 8.8 mg/dL 01/18/2025 8.7 - 10.5 HHCCT Prot SerPl-mCnc 6.6 g/dL 01/18/2025 6.3 - 8.[address] Potassium SerPl-sCnc 3.8 mmol/L 01/18/2025 3.4 - 5.3 HHCCT Albumin SerPl-mCnc 3.5 g/dL 01/18/2025 3.4 - 4.8 HHCCT Creat SerPl-mCnc 0.9 mg/dL 01/18/2025 0.4 - 1.1 HH CCT Chloride SerPl-sCnc 106.0 mmol/L 01/18/2025 98 - 1 07 HHCCT ALP SerPl-cCnc 110.0 U/L 01/18/2025 32 - 122 HHCC T Bilirub SerPl-mCnc 0.5 mg/dL 01/18/2025 0.2 - 1 HHCCT AST SerPl-cCnc 46.0 U/L 01/18/2025 10 - 50 HHCC T Troponin T SerPl-mCnc 647.0 ng/L Critically high 01/18/2025 - 15 HHCCT Delta NO PREVIOUS RESULT 01/18/2025 - 3 HHCCT Lactate SerPl-sCnc 4.4 mmol/L Critically high 01/18/2025 0.5 - 1.9 HHCCT aPTT PPP 67.0 seconds Above high normal 01/18/2025 25 - 36 HHCCT Anticoagulant IV HEPARIN, UNFRACTIONATED 01/18/2025 HHCCT Prothrombin time 12.5 seconds 01/18/2025 10 - 13.5 HHCCT INR PPP 1.1 01/18/2025 HHCCT Anticoagulant IV HEPARIN, UNFRACTIONATED 01/18/2025 HHCCT WBC num Bld Auto 20.1 Thou/uL Above high normal 01/18/2025 4 - 11 HHCCT RDW RBC Auto-Rto 15.0 % Above high normal 01/18/2025 11.5 - 14.5 HHCCT MCV RBC Auto 102.0 fL Above high normal 01/18/2025 80 - 100 HHCCT RBC num Bld Auto 3.64 Mil/uL Below low normal 01/18/2025 4 - 5.4 HHCCT Lymphocytes num Bld Auto 0.77 Thou/uL Below low normal 01/18/2025 1.5 - 4.5 HHCCT Monocytes num Bld Auto 1.05 Thou/uL 01/18/2025 0.2 - 1.5 HHCCT Eosinophil/leuk NFr Bld Auto 0.0 % 01/18/2025 HHCCT Monocytes/leuk NFr Bld Auto 5.2 % 01/18/2025 HHCCT Imm Granulocytes/leuk NFr Bld Auto 0.6 % 01/18/2025 HHCCT Eosinophil num Bld Auto 0.0 Thou/uL 01/18/2025 0 - 0.7 HHCCT MCHC RBC Auto-mCnc 29.8 g/dL Below low normal 01/18/2025 30 - 36 HHCCT MCH RBC Qn Auto 30.5 pg 01/18/2025 27 - [address] Neutrophils num Bld Auto 18.1 Thou/uL Above high normal 01/18/2025 2 - 7.5 HHCCT Hgb Bld-mCnc 11.1 g/dL Below low normal 01/18/2025 11.7 - 15 .7 HHCCT Hct VFr Bld Auto 37.2 % 01/18/2025 35 - 47 HH CCT PMV Bld Auto 10.1 fL 01/18/2025 7.5 - 12.5 HHCCT Basophils num Bld Auto 0.07 Thou/uL 01/18/2025 0 - 0.2 HHCCT Lymphocytes/leuk NFr Bld Auto 3.8 % 01/18/2025 HHCCT Platelet num Bld Auto 219.0 Thou/uL 01/18/2025 150 - 450 HHCCT Neutrophils/leuk NFr Bld Auto 90.1 % 01/18/2025 HHCCT Basophils/leuk NFr Bld Auto 0.3 % 01/18/2025 HHCCT Imm Granulocytes num Bld Auto 0.12 Thou/uL Above high normal 01/18/2025 0 - 0.1 HHCCT History of Medication Use Medication Directions Dispensed Refills Start Date End Date Stat empagliflozin (JARDIANCE) 10 MG tablet Take 1 tablet (10 mg total) by mouth every morning. 01/29/2025 active potassium chloride (K-TAB) 20 MEQ CR tablet Take 1 tablet (20 mEq total) by mouth daily. Swallow whole; do not crush. Take with food. 01/29/2025 active apixaban (ELIQUIS) 5 MG tablet Take 1 tablet (5 mg total) by mouth every 12 (twelve) hours around the clock. 01/23/2025 active furosemide (LASIX) 20 MG tablet Take 2 tablets (40 mg total) by mouth every morning. 01/23/2025 active metoPROLOL SUCCINATE (TOPROL-XL) 50 MG 24 hr tablet Take 1 tablet (50 mg total) by mouth every morning. 01/23/2025 active allopurinol (ZYLOPRIM) 100 mg tablet Take 2 tablets (200 mg total) by mouth daily. 12/25/2024 active atorvastatin (LIPITOR) 20 MG tablet Take 1 tablet (20 mg total) by mouth every morning. 11/16/2024 active leflunomide (ARAVA) 10 MG tablet Take 1 tablet (10 mg total) by mouth every morning. 11/16/2024 active silver sulfADIAZINE (SILVADENE) 1 % cream APPLY TO SKIN DAILY 11/13/2024 active B-Complex Cap Take 1 capsule by mouth daily. active Vitamin D3 (CHOLECALCIFEROL) 50 MCG (2000 UT) tablet Take 1 tablet (2,000 Units total) by mouth daily. active Allergies Allergen Reaction Severity Comment Documented Date Source Statu s TRAMADOL UNKNOWN/PATIENT AND FAMILY UNABLE TO DEFINE 01/18/2025 [facility] active CODEINE UNKNOWN/PATIENT AND FAMILY UNABLE TO DEFINE [facility] HYDROMORPHONE UNKNOWN/PATIENT AND FAMILY UNABLE TO DEFINE HHCCT HYDROXYCHLOROQUINE UNKNOWN/PATIENT AND FAMILY UNABLE TO DEFINE HHCCT METHOTREXATE UNKNOWN/PATIENT AND FAMILY UNABLE TO DEFINE HHCCT METRONIDAZOLE UNKNOWN/PATIENT AND FAMILY UNABLE TO DEFINE HHCCT OXYCODONE UNKNOWN/PATIENT AND FAMILY UNABLE TO DEFINE HHCCT Problems Problem Status Onset Date Problem Type Date of Resoluti on Source Heart failure with reduced ejection fraction active 2025-01-25 ProblemAct [facility] Pulmonary edema active 2025-01-19 ProblemAct HH CCT Paroxysmal atrial fibrillation active 2025-01-29 ProblemAct [facility] Type 1 non-ST elevation myocardial infarction (NSTEMI) active 2025-01-19 ProblemAct [facility] GERD (gastroesophageal reflux disease) active 2025-01-19 ProblemAct [facility]CT Atrial fibrillation with RVR active 2025-01-19 ProblemAct [facility]CT Bacteremia due to Gram-positive bacteria active 2025-01-19 ProblemAct HHCCT Iron deficiency anemia active 2025-01-19 ProblemAct H[facility]CT Systolic murmur active 2025-01-19 ProblemAct HH CCT Diarrhea active 2025-01-19 ProblemAct [facility] Encounters Encounter Type Encounter Reason Primary Diagnosis Location Date Ambulatory [facility] 01/[facility]/2025 Ambulatory Chronic systolic (congestive) heart failure Chronic systolic (congestive) heart failure [facility] 01/29/2025 Inpatient Cardiogenic shock Cardiogenic shock [facility] 01/18/2025 Care Team Organization Name Specialty Phone Email Start Date End Aguila hernandez [facility] Kenisha Ozuna [facility] 01/20/2025 [facility] 01/18/2025 02/27/2025 [facility] 01/18/2025
--- OUTSIDE RECORDS SUMMARY | 2025-06-11 13:52 | XMS_ITS | Clinical Summary ---
Author Organization Formerly [facility] Address [address] [place] [address] Care Team Providers Care Jewel Inserter Name Role Phone Kenisha Ozuna MD Primary Care Provider [phone] Allergies Active Allergy Reactions Criticality Noted Date [...] subsegmental atelectasis. Minimal interstitial pulmonary edema. BNP 03297 Trop 647 -> 542 SBP 105 - Per interventional cardiology plan for RHC/LHC +/- PCI 01/20 and plan for n.p.o. at midnight - [id number] 2 - Continue heparin GTT - Aspirin [...] subsegmental atelectasis. Minimal interstitial pulmonary edema. BNP 05619 Trop 647 -> 542 SBP 105 - Per interventional cardiology plan for RHC/LHC +/- PCI 01/20 and plan for n.p.o. at midnight - [id number] 2 - Continue heparin GTT - Aspirin [...] subsegmental atelectasis. Minimal interstitial pulmonary edema. BNP 34856 Trop 647 -> 542 SBP 105 - Per interventional cardiology plan for RHC/LHC +/- PCI 01/20 and plan for n.p.o. at midnight - [id number] 2 - Continue heparin GTT - Aspirin [...] subsegmental atelectasis. Minimal interstitial pulmonary edema. BNP 30065 Trop 647 -> 542 SBP 105 - Per interventional cardiology plan for RHC/LHC +/- PCI 01/20 and plan for n.p.o. at midnight - [id number] 2 - Continue heparin GTT - Aspirin [...] subsegmental atelectasis. Minimal interstitial pulmonary edema. BNP 89485 Trop 647 -> 542 SBP 105 - Per interventional cardiology plan for RHC/LHC +/- PCI 01/20 and plan for n.p.o. at midnight - [id number] 2 - Continue heparin GTT - Aspirin 81 mg once daily - Lipitor 80 mg once daily - Lasix 40 mg IV twice daily - Lopressor 20 mg twice daily - Lipids in a.m. - Strict I's and O's, daily weights, telemetry - K>4 and Mg >2 Encounters Date Type Department Care Team Description 06/09/2025 Scanned Document [facility] CARDIOLOGY SCAN Cardiology, Scan from Last 3 Months Social History Tobacco Use Types Packs/Day Years Used Date Smoking Tobacco: Never Smokeless Tobacco: Never Tobacco Cessation:Counseling Given: Not Answered Alcohol Use Standard Drinks/Week Comments Not Currently 0 (1 standard drink = 0.6 oz pur e alcohol) [facility] Utilities Answer Date Recorded In the past 12 months has e electric, gas, oil, or water [employer] threatened to shut off services in your [...] any time in the past 12 m [facility], were you homeless or living in a detention (including now)? No 01/19/2025 Comments Unknown Sex [...] patient's age to complete this topic Insurance [facility] MEDICARE PART A & B MEDICARE PART A & B [facility] Advance Directives * Full Code (Latest Code Status on File) Date Activated Date Inactivated Comments 01/18/2025 2:04 PM Care Teams Jewel Inserter Relationship Specialty Start Date End Date Kenisha Ozuna MD [address] [place] [address] [phone] PCP - General Internal Medicine 01/19/25
--- NOTE | 2025-06-11 14:10 | MHC.OFFWIV ---
Intake Vital Signs 06/11/25 14:11 Height 5 ft 1 in Weight 172 lb BMI 32.5 BP 138/80 Blood Pressure Location Rt brachial Position Sitting Pulse 81 Pulse Source Pulse Oximeter Temp 102.1 F H Temp Source Oral Pulse Oximetry (%) 95 Oxygen Delivery Method Room Air Intake Visit Reasons: EP chills, not feeling well. Intake Note: presents with body weakness, increased fatigue, body chills, sinus congestion Patient Tobacco Use Status: Never used Tobacco Allergies hydroxychloroquine (Plaquenil) Allergy (Severe, Verified 06/11/25 14:21) Rash codeine (Codeine) Allergy (Intermediate, Verified 06/11/25 14:21) NAUSEA & VOMITING methotrexate Allergy (Intermediate, Verified 06/11/25 14:21) Diarrhea oxycodone Allergy (Intermediate, Verified 06/11/25 14:21) dizziness, nausea, vomiting tramadol Allergy (Intermediate, Verified 06/11/25 14:21) Diarrhea metronidazole Allergy (Unknown, Verified 06/11/25 14:21) Vomiting hydromorphone (From Dilaudid) Adverse Reaction (Verified 06/11/25 14:21) Vomiting Do you need a note to return to daycare/school/sports/work: No HPI EP chills, not feeling well. HPI Details 69 year old female patient with a PMH significant for rheumatoid arthritis, hyperlipidemia, eczema, history of gout, history of DVT, CHF, IBS, osteoarthritis, polymyositis presenting to the office today for recurrent symptoms and episodes of unclear diagnosis. She reports that these episodes have been going on for nearly 2 years. Initially, episodes came about every couple of months, and now they are occuring nearly weekly. Most recent episode was yesterday, and again today she experienced same symptoms. She reports: sudden onset of feeling chills/feverish, aches, fatigue, numbness and very cold fingers, and urinary incontinece. She also notes that at times she develops a red rash on her legs. No pruritis or pain associated with this. She recently saw PCP and had labs which did not reveal anything obviously abnormal. Previous PCP had tried prednisone and multiple abx for this without any relief. She is seeing rheumotology for the first time in several years at the end of this month. She denies any respiratory, cardiac, or GI symptoms. She is frustrated by lack of diagnosis. [facility] Medical History Diarrhea Congestive heart failure Atrial fibrillation Septic shock Group B streptococcal bacteriuria IBS (irritable bowel syndrome) History of cellulitis Elevated cholesterol HTN (hypertension) PONV (postoperative nausea and vomiting) Colon cancer screening Eczema DVT (deep venous thrombosis) Cough Primary osteoarthritis, right hand Primary osteoarthritis, left hand Gout Polymyositis Surgical History Hx of shoulder surgery (11/22/23) History of back surgery (~2019) Hx of endoscopy H/O colonoscopy (~02/11/19) Family History Mother No problems noted. Father No problems noted. 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 Cognitive needs: No Hearing needs: No Vision needs: Yes (rx glasses) Review of Systems Const All systems reviewed & are unremarkable except as noted in HPI and below Physical Exam Vital Signs: Last Vital Signs Temp 102.1 F H 06/11/25 14:11 Pulse 81 06/11/25 14:11 BP 138/80 06/11/25 14:11 Pulse Ox 95 06/11/25 14:11 Oxygen Delivery Method Room Air 06/11/25 14:11 BMI result Body Mass Index 32.5 Const General: cooperative, healthy appearing, comfortable and no acute distress HEENT Head: Yes normal to inspection and Yes normocephalic Ears: hearing grossly normal bilaterally General nose exam: Normal external nose present Face and sinus: Yes normal facial exam Neck Neck: Yes no lymphadenopathy Resp Effort & Inspection: normal respiratory effort Auscultation: clear to auscultation bilaterally Cardio Rate: regular rate Rhythm: regular rhythm Heart sounds: S1 normal heart sound present and S2 normal heart sound present Skin Other: right upper/lateral thigh, erythematous rash. No open areas, no warmth or pruritis. General skin exam: elasticity normal and turgor normal Neuro General: gait normal, tone normal and no focal motor deficits Extrem Other: fingertips mildly cool to touch General: Yes capillary refill normal and Yes no clubbing, cyanosis or edema Psych Appearance: grossly normal Mental Status: mental status grossly normal Speech and movement: Normal speech and movement present Assessment & Plan Assessment & Plan (1) Neuropathy: Code(s): G62.9 - Polyneuropathy, unspecified Plan: I was transparent with patient today that I am unsure what additional labs/treatment modalities to offer her. She has failed trials of multiple medications including corticosteroids. She recently had labs which were ordered by PCP and I encouraged her to f/u with PCP office to review these. Labs appear unremarkable. She is seeing rheumatology at the end of this month. Her symptoms could represent something that may perhaps need neuro evaluation. She will await rheum visit to see what they say. Based on fevers/chills/malaise today, I have obtained covid/flu/rsv viral swab and we will f/u with patient with results once these are available. We discussed that if episodes recur and persist or are associated with any other symptoms, she may require eval in the ED. Patient verbalizes understanding and agrees with plan discussed today. (2) Fever: Code(s): R50.9 - Fever, unspecified Plan: As above. Orders: Orders SARS-CoV2/FLU/RSV Today R50.9 - Fever, unspecified Coding Level of Care Code Est Pt Level 4 (01491) Diagnoses Neuropathy G62.9 Fever R50.9
[2025-06-11 14:11] VITALS: BP 138/80; PULSE 81; TEMP 38.9; O2SAT 95; BMI 32.5
== END 2025-06-11 15:26 | disposition home or self-care (01) ==
PROVIDERS: PCP Internal Medicine; Visit Provider Nurse Practitioner Family
DX: G62.9 Polyneuropathy, unspecified (principal); R50.9 Fever, unspecified

== ENCOUNTER 2025-06-12 17:42 | Emergency (ER) | payer MEDICARE, OTHER, SELFPAY ==
--- NOTE | ~2025-06-12 | XR_ITS ---
CLINICAL HISTORY: fever, PNA 1 view chest x-ray Comparison: 01/18/2025 Findings: Lung inflation is normal. Cardiac and mediastinal silhouettes are normal. Pulmonary arterial vasculature is normal. Previously demonstrated reticular opacities have decreased. There is no pneumothorax or pleural effusion. No consolidative opacities. Osseous structures are normal. IMPRESSION: 1. No acute cardiopulmonary process. This document has been electronically signed by: Vernon Schultz III, MD PHD on 06/13/2025 00:28:09
--- NOTE | ~2025-06-12 | US_ITS ---
CLINICAL HISTORY: pain, swelling Venous duplex ultrasound right lower extremity Comparison: [place]/SR - US LOWER EXTREMITY VEINS BILATERAL - 07/09/24 10:41 EDT Findings: The visualized deep veins are fully compressible with normal Doppler color flow and spectral tracings. Several vascular calcifications are seen within the right calf with superficial varicosities demonstrating thrombosis within several of the superficial varicosities. There is generalized edema within the subcutaneous fat. Reactive appearing right inguinal lymph nodes measure up to 2.7 x 1.5 x 2.6 cm in size. IMPRESSION: 1. Negative for right lower extremity deep vein thrombosis. 2. Areas of thrombosis are seen within superficial varicosities throughout the right leg. 3. Presumed reactive right inguinal lymph nodes. This document has been electronically signed by: Tyrone Acuna MD on 06/12/2025 20:45:39
[2025-06-12 18:11] VITALS: BP 127/68; PULSE 90; RESP 20; TEMP 36.8; O2SAT 99; BMI 32.9
--- NOTE | 2025-06-12 18:18 | ED.GENADULT ---
HPI - General Adult General Chief complaint: General Medical Stated complaint: chills/rash rt leg/black stools Time Seen by Provider: 06/12/25 21:04 Source: patient Limitations: no limitations History of Present Illness ED Provider: Carol Ann Jacobsen PA-C HPI narrative: 69-year-old female chronic kidney disease, IBS, rheumatoid arthritis, anemia on iron supplementation, AFib on apixaban, hyperlipidemia, hypertension who presents with multiple complaints. Patient states she has been having chills with generalized malaise over the past several days. Today she has developed diarrhea, having had 10 black watery loose stools. Patient does use an iron supplement, that she has been on for quite some time. Denies abdominal pain, nausea, vomiting or fever. Denies recent cough or cold symptoms. Denies sick contacts with similar symptoms. Denies recent travel out of the country, hospitalization or use of antibiotics. Patient also complains of swelling of the lower extremities, there was some degree of chronicity to the peripheral edema. Patient noted an erythematous rash over right anterior berger, somewhat uncomfortable to touch. Related Data Home Medications ?Medication ?Instructions ?Recorded ?Confirmed acetaminophen 650 mg 650 mg PO Q8H PRN Pain 07/21/20 06/28/25 tablet,extended release atorvastatin 20 mg tablet 20 mg PO DAILY 07/21/20 06/28/25 vitamin B complex (B 1 tab PO DAILY 07/21/20 06/28/25 Complex-Vitamin B12 tablet) allopurinol 100 mg tablet 100 mg PO DAILY 01/18/22 06/28/25 Vitamin D3 2,000 units PO DAILY 09/30/23 06/28/25 loperamide 2 mg capsule (Imodium 2 mg PO QID PRN 01/07/25 06/28/25 A-D) apixaban 5 mg tablet (Eliquis) 5 mg PO BID 01/26/25 06/28/25 dapagliflozin propanediol 10 mg 10 mg PO DAILY 02/25/25 06/28/25 tablet (Farxiga) ferrous sulfate 325 mg (65 mg 325 mg PO DAILY 06/22/25 06/28/25 iron) tablet metoprolol succinate 50 mg 50 mg PO DAILY 06/22/25 06/28/25 tablet,extended release 24 hr potassium chloride 20 mEq 20 meq PO DAILY 06/22/25 06/28/25 tablet,extended release Previous Rx's ?Medication ?Instructions ?Recorded baclofen 10 mg tablet 10 - 20 mg (1 - 2 x 10 mg) PO 02/25/25 BEDTIME #180 tabs furosemide 40 mg tablet 40 mg PO BID #180 tabs 02/25/25 pantoprazole 40 mg tablet,delayed 40 mg PO DAILY #90 tabs 05/11/25 release Allergies Allergy/AdvReac Type Severity Reaction Status Date / Time hydroxychloroquine Allergy Severe Rash Verified 06/28/25 13:50 (Plaquenil) codeine (Codeine) Allergy Intermediate NAUSEA & Verified 06/28/25 13:50 VOMITING methotrexate Allergy Intermediate Diarrhea Verified 06/28/25 13:50 oxycodone Allergy Intermediate dizziness, Verified 06/28/25 13:50 nausea, vomiting tramadol Allergy Intermediate Diarrhea Verified 06/28/25 13:50 metronidazole Allergy Unknown Vomiting Verified 06/28/25 13:50 hydromorphone (From Dilaudid) AdvReac Vomiting Verified 06/28/25 13:50 Review of Systems Review of Systems: Yes all other systems are reviewed and are negative Constitutional: Constitutional: Reports chills, Denies fatigue, Denies fever(s) and Reports malaise Cardiovascular: Cardiovascular: Denies chest pain and Denies dyspnea Respiratory: Respiratory: Denies cough and Denies dyspnea Gastrointestinal: Gastrointestinal: Denies abdominal pain, Reports melena, Denies hematochezia, Reports diarrhea, Denies nausea and Denies vomiting Integumentary/Breasts: Skin/Breast: Reports erythema, Reports rash, Reports skin swelling, Denies skin ulcer and Denies sores Endocrine: Endocrine: Denies fatigue [facility] Past Medical History Attestation statement: The following information was validated with the patient. Medical History (Updated 06/22/25 @ 11:22 by Alexandru Ng MD) CKD stage 3b, GFR 30-44 ml/min Diarrhea Congestive heart failure Atrial fibrillation Septic shock Group B streptococcal bacteriuria IBS (irritable bowel syndrome) History of cellulitis Elevated cholesterol HTN (hypertension) PONV (postoperative nausea and vomiting) Colon cancer screening Eczema DVT (deep venous thrombosis) Cough Primary osteoarthritis, right hand Primary osteoarthritis, left hand Gout Polymyositis Surgical History Hx of shoulder surgery (11/22/23) History of back surgery (~2019) Hx of endoscopy H/O colonoscopy (~02/11/19) Family History Family History Mother No problems noted. Father No problems noted. 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 Cognitive needs: No Hearing needs: No Vision needs: Yes (rx glasses) Physical Exam ED Vital Signs: Vital Signs - 24 hr 06/12/25 18:11 06/12/25 23:42 Temperature 98.2 F 100.3 F Pulse Rate 90 97 Respiratory Rate 20 18 Blood Pressure 127/68 129/75 Pulse Oximetry 99 98 Oxygen Delivery Method Room Air Room Air BMI result Body Mass Index 32.9 Const Other: Alert overall well-appearing Orientation/consciousness: patient oriented x3 Resp Effort & Inspection: normal respiratory effort Cardio Other: Normal peripheral perfusion GI Other: No melena no bright red blood per rectum, minimal stool which is brown, guaiac negative, abdomen is soft, nondistended nontender no guarding Skin Other: Warm dry no rash Neuro General: patient oriented x3, gait normal, no focal motor deficits and CN's II-XI intact bilaterally Extrem Other: Bilateral pitting edema, subtly raised erythematous region over right anterior berger, concern for cellulitis versus erysipelas is nonvesicular is not pruritic is confluent Psych Other: Cooperative Course Course Course Narrative: Medical screening exam performed. Please refer to detailed history, exam, evaluation, and management by primary provider. 69-year-old female with bruising to the right leg, swelling. On Xarelto for AFib. Also reporting black stools, diarrhea. Reports feeling weak. Check labs. JS Medications Administered Discontinued Medications Generic Name Dose Route Start Last Admin Trade Name Freq PRN Reason Stop Dose Admin Cephalexin HCl 500 mg 06/12/25 23:49 06/13/25 00:14 Cephalexin 500 Mg Capsule PO 06/12/25 23:50 500 mg ONCE ONE Administration Medical Decision Making Medical Decision Making [facility] Narrative: 69-year-old female with a history of chronic kidney disease, IBS, rheumatoid arthritis, anemia on iron supplementation, AFib on apixaban, hyperlipidemia, hypertension who presents with multiple complaints. Patient states she has been having chills with generalized malaise over the past several days. Today she has developed diarrhea, having had 10 black watery loose stools. Patient does use an iron supplement, that she has been on for quite some time. Denies abdominal pain, nausea, vomiting or fever. Denies recent cough or cold symptoms. Denies sick contacts with similar symptoms. Denies recent travel out of the country, hospitalization or use of antibiotics. Patient also complains of swelling of the lower extremities, there was some degree of chronicity to the peripheral edema. Patient noted an erythematous rash over right anterior berger, somewhat uncomfortable to touch. Problem: Age History: Per patient I have considered the following differential diagnoses: Cellulitis, erysipelas, shingles, DVT, viral syndrome, pneumonia, UTI, viral gastroenteritis, traveler's diarrhea, C diff, diverticulitis, GI bleed Plan: Patient here with numerous complaints. She has had generalized chills without any specific symptoms beyond the rash, it appears cellulitic, perhaps is erysipelas, Doppler studies ordered and are negative. We will treat accordingly. We will look for other infectious sources for her chills, adding on a chest x-ray, viral panel and we will collect a urine sample. In regard to the diarrhea, she is alluding to the fact that she may have a GI bleed, obtaining a guaiac. She has no abdominal pain, she does not require a CT scan at this time. She has no risk factors for traveler's diarrhea or C diff, the loose stool is most likely related to viral gastroenteritis. I have independently reviewed the following tests: Labs: No leukocytosis, not anemic, no electrolyte abnormality, urine not infected, COVID negative, influenza negative, guaiac negative Chest x-ray: Findings: Lung inflation is normal. Cardiac and mediastinal silhouettes are normal. Pulmonary arterial vasculature is normal. Previously demonstrated reticular opacities have decreased. There is no pneumothorax or pleural effusion. No consolidative opacities. Osseous structures are normal. IMPRESSION: 1. No acute cardiopulmonary process. Ultrasound lower extremity: Findings: The visualized deep veins are fully compressible with normal Doppler color flow and spectral tracings. Several vascular calcifications are seen within the right calf with superficial varicosities demonstrating thrombosis within several of the superficial varicosities. There is generalized edema within the subcutaneous fat. Reactive appearing right inguinal lymph nodes measure up to 2.7 x 1.5 x 2.6 cm in size. IMPRESSION: 1. Negative for right lower extremity deep vein thrombosis. 2. Areas of thrombosis are seen within superficial varicosities throughout the right leg. 3. Presumed reactive right inguinal lymph nodes. Differential Diagnosis Differential Diagnoses: The differential diagnosis associated with the presentation includes See medical decision-making Admission/Observation Consideration of admission/observation: Escalation of care including admission/observation considered Not applicable Lab Data MDM Lab Attestation statement: I reviewed the patient's lab results. 06/12/25 19:01 06/12/25 19:01 Labs: Lab Results 06/12/25 06/12/25 06/12/25 Range/Units 19:01 22:26 23:01 WBC 10.3 (4.8-10.8) X10*3/uL RBC 4.01 L (4.20-5.50) X10*6/uL Hgb 12.9 (12.0-16.0) g/dl Hct 37.3 (37.0-47.0) % MCV 93.0 (80.0-98.0) fL MCH 32.2 (27.0-33.0) pg MCHC 34.6 (31.0-35.0) g/dl RDW 14.4 (11.0-16.0) % Plt Count 196 (160-400) X10*3/uL MPV 10.4 (9.4-12.3) fL Immature Gran % (Auto) 0.3 (0.0-0.4) % Neut % (Auto) 62.4 (45-73) % Lymph % (Auto) 18.3 L (20-40) % Ogle % (Auto) 16.5 H (2-11) % Eos % (Auto) 1.9 (0-4) % Baso % (Auto) 0.6 (0-2) % Lymph # (Auto) 1.9 (1.2-4.9) X10*3/uL Ogle # (Auto) 1.7 H (0.1-1.2) X10*3/uL Eos # (Auto) 0.2 (0.0-0.4) X10*3/uL Baso # (Auto) 0.1 (0.0-0.2) X10*3/uL Abs Immat Gran (auto) 0.03 (0.00-0.03) X10*3/uL Absolute Neuts (auto) 6.4 (2.0-8.3) x10*3/uL Absolute Nucleated RBC 0.000 (0.0-0.012) X10*3/uL Nucleated RBC % (auto) 0.0 (0.0-0.2) /100WBC Smear Tech's Comments VERIFIED PT 17.8 H D (10.9-12.4) SEC INR 1.6 H (0.9-1.1) Sodium 140 (135-145) mmol/L Potassium 3.5 (3.3-5.1) mmol/L Chloride 102 (96-108) mmol/L Carbon Dioxide 26 (22-29) mmol/L Anion Gap 16 (12-20) BUN 37 H (9-16) mg/dL Creatinine 1.74 H (0.5-1.4) mg/dL Estim Creat Clear Calc 29.0 Estimated GFR 29 Random Glucose 82 (60-115) mg/dL Lactic Acid 0.9 (0.5-2.0) mmol/L Calcium 10.1 D (8.4-10.2) mg/dL Total Bilirubin 0.8 (0.0-1.0) mg/dL AST 52 H (5-31) U/L ALT 18 (0-31) U/L Alkaline Phosphatase 90 (39-117) U/L Total Protein 7.1 (6.5-8.0) g/dL Albumin 4.2 (3.5-5.0) g/dL Urine Color Yellow Urine Appearance Clear Urine pH 5.5 (5.0-9.0) Ur Specific [place] 1.015 (1.005-1.025) Urine Protein Trace (Neg-Trace) mg/dL Urine Glucose (UA) 100 H (Negative) mg/dL Urine Ketones 15 (Negative) mg/dL Urine Blood Negative (Negative) Urine Nitrite Negative (Negative) Ur Leukocyte Esterase Negative (Negative) Stool Occult Blood NEGATIVE (NEGATIVE) COVID-19 (ESSIE) Negative (Negative) COVID-19 Clin Com See Note Influenza Type A (SYBIL) Negative (Negative) Influenza Type B (SYBIL) Negative (Negative) Influenza A & B Note See Note Blood Type O Positive Antibody Screen NEGATIVE Radiology Impression Discussion of test interpretation with radiology: I have reviewed the radiologist's reading. Discharge Plan Discharge Clinical Impression: Erysipelas of right lower extremity Patient Disposition: Home, Self-Care Instructions: Cellulitis (ED) Additional Instructions: You are being treated for erysipelas of the right lower extremity, which is very similar to cellulitis. See home care instructions. Take the cephalexin as directed, be sure to complete the course of antibiotic. The remainder of your screening labs were within normal limits, your urine is not infected, you were tested for COVID and influenza, both viral panels were negative. The chest x-ray is clear you do not have pneumonia. Follow up with your primary care provider for a recheck of your right lower extremity infection. Prescriptions: No Action pantoprazole 40 mg tablet,delayed release (DR/EC) 40 mg PO DAILY Qty: 90 1RF Vitamin D3 2,000 units PO DAILY atorvastatin 20 mg tablet 20 mg PO DAILY vitamin B complex [B Complex-Vitamin B12] Tablet 1 tab PO DAILY acetaminophen 650 mg tablet extended release 650 mg PO Q8H PRN (Reason: Pain) allopurinol 100 mg tablet 100 mg PO DAILY dapagliflozin propanediol [Farxiga] 10 mg tablet 10 mg PO DAILY baclofen 10 mg tablet 10 - 20 mg PO BEDTIME Qty: 180 3RF furosemide 40 mg tablet 40 mg PO BID Qty: 180 3RF Eliquis 5 mg tablet 5 mg PO BID metoprolol succinate 50 mg tablet extended release 24 hr 50 mg PO DAILY potassium chloride 20 mEq tablet extended release 20 meq PO DAILY ferrous sulfate 325 mg (65 mg iron) tablet 325 mg PO DAILY Rx Instructions: Take one pill by mouth every other day loperamide [Imodium A-D] 2 mg capsule 2 mg PO QID PRN Interventions: ED Discharge Assessment Last Done: 06/13/25 01:00 Discharge Date/Time: 06/13/25 01:04 Print Language: Lithuanian
[2025-06-12 19:16] LABS: Hematocrit 37.3 % (37.0-47.0); Hemoglobin 12.9 g/dl (12.0-16.0); Imm Gran Abs Auto 0.03 X10*3/uL (0.00-0.03); Imm Gran Pct Auto 0.3 % (0.0-0.4); Lymphocytes Absolute Auto 1.9 X10*3/uL (1.2-4.9); MANUAL DIFF FLAG SCAN; Mean Corpuscular HGB Conc 34.6 g/dl (31.0-35.0); Mean Corpuscular Hemoglobin 32.2 pg (27.0-33.0); Mean Corpuscular Volume 93.0 fL (80.0-98.0); NRBC Abs Auto 0.000 X10*3/uL (0.0-0.012); NRBC Pct Auto 0.0 /100WBC (0.0-0.2); Platelet Count 196 X10*3/uL (160-400); Red Blood Count 4.01 X10*6/uL (4.20-5.50); SCAN SMEAR FLAG 1; White Blood Count 10.3 X10*3/uL (4.8-10.8)
[2025-06-12 19:26] LABS: INTERNATIONAL NORM RATIO 1.6 (0.9-1.1); Prothrombin Time 17.8 SEC (10.9-12.4)
[2025-06-12 19:30] LABS: COVID-19 Test Negative (Negative); IDNOW Serial# 55D5AD1C
[2025-06-12 19:31] LABS: Alanine Aminotransferase 18 U/L (0-31); Albumin Level 4.2 g/dL (3.5-5.0); Alkaline Phosphatase 90 U/L (39-117); Anion Gap 16 (12-20); Aspartate Amino Transferase 52 U/L (5-31); Blood Urea Nitrogen 37 mg/dL (9-16); Calcium 10.1 mg/dL (8.4-10.2); Carbon Dioxide 26 mmol/L (22-29); Chloride 102 mmol/L (96-108); Creatinine Clr Calc Pharmacy 29.0; Estimated Glomerular Filt Rate 29; Potassium 3.5 mmol/L (3.3-5.1); Sodium 140 mmol/L (135-145); Total Protein 7.1 g/dL (6.5-8.0)
--- OUTSIDE RECORDS SUMMARY | 2025-06-12 21:10 | XMS_ITS | Clinical Summary ---
Author Organization [facility] Address [address] [place] [address] Care Team Providers Care Maintenance Team Leader Name Role Phone Kenisha Ozuna MD Primary Care Provider [phone] Allergies Active Allergy Reactions Criticality Noted Date [...] subsegmental atelectasis. Minimal interstitial pulmonary edema. BNP 05003 Trop 647 -> 542 SBP 105 - Per interventional cardiology plan for RHC/LHC +/- PCI 01/20 and plan for n.p.o. at midnight - [id number] 2 - Continue heparin GTT - Aspirin [...] subsegmental atelectasis. Minimal interstitial pulmonary edema. BNP 51904 Trop 647 -> 542 SBP 105 - Per interventional cardiology plan for RHC/LHC +/- PCI 01/20 and plan for n.p.o. at midnight - [id number] 2 - Continue heparin GTT - Aspirin [...] subsegmental atelectasis. Minimal interstitial pulmonary edema. BNP 06966 Trop 647 -> 542 SBP 105 - Per interventional cardiology plan for RHC/LHC +/- PCI 01/20 and plan for n.p.o. at midnight - [id number] 2 - Continue heparin GTT - Aspirin [...] subsegmental atelectasis. Minimal interstitial pulmonary edema. BNP 73910 Trop 647 -> 542 SBP 105 - Per interventional cardiology plan for RHC/LHC +/- PCI 01/20 and plan for n.p.o. at midnight - [id number] 2 - Continue heparin GTT - Aspirin [...] subsegmental atelectasis. Minimal interstitial pulmonary edema. BNP 58492 Trop 647 -> 542 SBP 105 - Per interventional cardiology plan for RHC/LHC +/- PCI 01/20 and plan for n.p.o. at midnight - [id number] 2 - Continue heparin GTT - Aspirin 81 mg once daily - Lipitor 80 mg once daily - Lasix 40 mg IV twice daily - Lopressor 20 mg twice daily - Lipids in a.m. - Strict I's and O's, daily weights, telemetry - K>4 and Mg >2 Encounters Date Type Department Care Team Description 06/09/2025 Scanned Document [facility] CARDIOLOGY SCAN Cardiology, Scan from Last 3 Months Social History Tobacco Use Types Packs/Day Years Used Date Smoking Tobacco: Never Smokeless Tobacco: Never Tobacco Cessation:Counseling Given: Not Answered Alcohol Use Standard Drinks/Week Comments Not Currently 0 (1 standard drink = 0.6 oz pur e alcohol) [facility] Utilities Answer Date Recorded In the past 12 months has e electric, gas, oil, or water [employer] threatened to shut off services in your [...] any time in the past 12 m [facility], were you homeless or [...] age to complete this topic Insurance [facility] MEDICARE PART A & B MEDICARE PART A & B [facility] Advance Directives * Full Code (Latest Code Status on File) Date Activated Date Inactivated Comments 01/18/2025 2:04 PM Care Teams Maintenance Team Leader Relationship Specialty Start Date End Date Kenisha Ozuna MD [address] [place] [id number] PCP - General Internal Medicine 01/19/25
--- OUTSIDE RECORDS SUMMARY | 2025-06-12 21:10 | XMS_ITS | Clinical Summary ---
Author Organization [facility] Facility Address [address] [place] [address] Care Team Providers Care Polishing Wheel Repairer Name Role Phone Deb Soliman MD Primary Care Provider [phone] Medications metoprolol tartrate (LOPRESSOR) 50 MG tablet [...] age to complete this topic Care Teams Polishing Wheel Repairer Relationship Specialty Start Date End Date Deb Soliman MD [address] [place] [address] [address] [place] [address] PCP - General 09/19/20
--- OUTSIDE RECORDS SUMMARY | 2025-06-12 21:11 | XMS_ITS | Patient Health Record ---
Author Organization [facility] Address [address] [place] [address] Care Team Providers Care Fuel Conversion Technician Name Role Phone Janny NAVARRO, Deb Primary [...] Insured Coverage Start Date Coverage End Date [facility] [address] [place] [address] [id number] EMMETT JUÁREZ Self - patient is the insured Medical (General) History Medical History History ICD Code hypertension Denies MS,DM,CVA,Lung disease,renal dise ase Gout myositis hx of celulitis IBS Surgical History Surgery Date(Month/Year)
--- OUTSIDE RECORDS SUMMARY | 2025-06-12 21:11 | XMS_ITS | Encounter Summary ---
Author Organization [facility] Address [address] [place] [address] Care Team Providers Care Internal Medicine Specialist Name Role Phone Kenisha Ozuna MD Primary Care Provider [phone] Encounter Details Date Type Department Care Team (Late st Contact Info) Description 06/09/2025 Scanned Document [facility] CARDIOLOGY SCAN Cardiology, Scan Social History Tobacco Use Types Packs/Day Years Used Date Smoking Tobacco: Never Smokeless Tobacco: Never Alcohol Use Standard Drinks/Week Comments Not Currently 0 (1 standard drink = 0.6 oz pur e alcohol) [facility] Utilities Answer Date Recorded In the past 12 months has [employer] electric, gas, oil, or water [employer] threatened to shut off services in your [...] any time in the past 12 m [facility], were you homeless or living in [...] on filedocumented in this encounter Care Teams Internal Medicine Specialist Relationship Specialty Start Date End Date Kenisha Ozuna MD [address] [place] [address] [place] [phone] PCP - General Internal Medicine 01/19/25 documented as of this encounter
[2025-06-12 22:38] LABS: Appearance Urine Clear; Glucose Urine UA 100 mg/dL (Negative); PH 5.5 (5.0-9.0); Specific Gravity - Urine 1.015 (1.005-1.025)
[2025-06-12 22:51] LABS: IDNOW Serial# 08D9AD1C; Influenza B2 Negative (Negative)
[2025-06-12 23:06] LABS: OBS Int Ctl Valid YES; OBS1 NEGATIVE (NEGATIVE)
[2025-06-12 23:42] VITALS: BP 129/75; PULSE 97; RESP 18; TEMP 37.9; O2SAT 98
--- NOTE | 2025-06-12 23:43 | MHC.EDTECH ---
This tech took over care of pt at 2300, rounds and vitals completed, pts temp is 100.3, RN/BEAUTY CULTURE TEACHER aware. Per iTny to hold on second type N screen,patient is resting quietly,call farias in reach
--- NOTE | 2025-06-13 00:58 | PC.NURSE ---
Reviewed discharge instructions with pt, pt verbalized understanding, pt tolerated po antibiotic well, no sign of distress.
[2025-06-13 01:00] VITALS: BP 129/75; PULSE 97; RESP 18; TEMP 36.8; O2SAT 98
== END 2025-06-13 01:04 | disposition home or self-care (01) ==
PROVIDERS: Physician Assistant; Physician Assistant Medical; Emergency Provider Emergency Medicine; PCP Physician Assistant
DX: A46 Erysipelas (principal); R60.0 Localized edema; I48.91 Unspecified atrial fibrillation; R50.9 Fever, unspecified; M79.604 Pain in right leg; Z79.01 Long term (current) use of anticoagulants; Z79.899 Other long term (current) drug therapy; Z11.52 Encounter for screening for COVID-19
CPT/HCPCS: 36415; 71045; 80053; 81003; 82272; 83605; 85025; 85610; 86850; 86900; 86901; 87502; 87635; 93971; 99284

== ENCOUNTER → 2025-06-12 18:19 | Outpatient (BNV) | payer MEDICARE, OTHER, SELFPAY | PROVIDERS: PCP Physician Assistant; Visit Provider Radiology Diagnostic Radiology | DX: I82.811 Embolism and thrombosis of superficial veins of right lower extremity (principal); R59.0 Localized enlarged lymph nodes | CPT/HCPCS: 93971 ==

== ENCOUNTER 2025-06-22 10:30 | Outpatient (AMB) | payer MEDICARE, OTHER, SELFPAY ==
--- NOTE | 2025-06-22 10:36 | A.OFFPC_ITS ---
Vital Signs 06/22/25 10:38 Height 5 ft 0.59 in Weight 170 lb BMI 32.6 BP 130/72 Blood Pressure Location Lt brachial Position Sitting Respiration 17 Pulse 76 Pulse Source Pulse Oximeter Temp 97.3 F Temp Source Temporal Artery Scan Pulse Oximetry (%) 98 Oxygen Delivery Method Room Air Intake Visit Reasons: ED follow up Cellulitis and GI bug Tile Classifier Required: No Accompanied by: Self / Same As Patient Allergies hydroxychloroquine (Plaquenil) Allergy (Severe, Verified 06/22/25 10:37) Rash codeine (Codeine) Allergy (Intermediate, Verified 06/22/25 10:37) NAUSEA & VOMITING methotrexate Allergy (Intermediate, Verified 06/22/25 10:37) Diarrhea oxycodone Allergy (Intermediate, Verified 06/22/25 10:37) dizziness, nausea, vomiting tramadol Allergy (Intermediate, Verified 06/22/25 10:37) Diarrhea metronidazole Allergy (Unknown, Verified 06/22/25 10:37) Vomiting hydromorphone (From Dilaudid) Adverse Reaction (Verified 06/22/25 10:37) Vomiting Medication List - Last Reconciled 06/22/25 by Alexandru Ng MD acetaminophen ER 650 mg PO Q8H PRN allopurinol 100 mg PO DAILY apixaban (Eliquis) 5 mg PO BID atorvastatin 20 mg PO DAILY baclofen 10 - 20 mg (1 - 2 x 10 mg) PO BEDTIME dapagliflozin propanediol (Farxiga) 10 mg PO DAILY ferrous sulfate 325 mg PO DAILY furosemide 40 mg PO BID loperamide (Imodium A-D) 2 mg PO QID PRN metoprolol succinate ER 50 mg PO DAILY pantoprazole 40 mg PO DAILY potassium chloride ER 20 mEq PO DAILY vitamin B complex (B Complex-Vitamin B12 tablet) 1 tab PO DAILY [Vitamin D3 2,000 multiple units PO DAILY] Tobacco use date assessed: 06/04/25 Fall risk assessment: No Falls in past year Last assessed Fall Risk: 06/22/25 Dental Screening Dental Screen Date: 06/04/25 HPI HPI Comments History of Present Illness Details The patient is a 69-year-old female presenting with episodes of chills and urinary incontinence. She reports visiting the hospital due to severe episodes that included chills, shaking, numb fingertips, urinary incontinence with a lack of control, and diarrhea that was black in color; this episode was particularly concerning for the patient. These episodes have been occurring intermittently for the past two years, but recently she experienced symptoms for three consecutive days. During these hospital visits, she was informed that she had a viral infection despite current symptomatic resolution. She previously received antibiotics for a separate incident of an infection. She denies any recent episodes of chills since her previous hospital visit. She has a history of heart-related concerns, mentioning periods of dyspnea and palpitations leading to hospitalizations, where she was found to have irregular heart rates and high cardiac output resulting in a six-day hospitalization. The patient was diagnosed with congestive heart failure and prescribed Farxiga for heart health following these episodes. She reports using a diuretic twice daily to manage symptoms related to heart failure, and she mentions improvement since hospitalization. Additionally, patient management includes ongoing treatment for atrial fibrillation and hypercholesterolemia. Concerns were also addressed regarding her chronic kidney disease stage 3B, and she is due for follow-up with a telecommunications engineer. Lastly, there is a backdrop of muscle pain for which she is on muscle relaxants, and a significant history of skin infection in her lower limbs, particularly associated with venous insufficiency treated by lower extremity ablation therapy. Medical History: - Atrial Fibrillation - Congestive Heart Failure - Hypercholesterolemia - Stage 3B Chronic Kidney Disease - Episodic Viral Infections - Urinary Incontinence - Muscle Pain - Previous Skin Infection Surgical History: - Venous Ablation (one session for the r ight leg completed; another planned) Medications: - Tylenol as needed for pain - Allopurinol for gout - Eliquis for atrial fibrillation - Atorvastatin 20 mg for hypercholestero lemia - Baclofen 20 mg at night for muscle shelli n - Farxiga for congestive heart failure - Diuretic (unknown name and dosage) jt en twice daily for heart failure - Imodium for diarrhea (used previously, avoided after hospitalization) - Metoprolol succinate for blood pressur e management Diagnostic Results: - Labs: Unremarkable except for slightly off kidney function tests - Diagnostic Tests: SANGITA and complement l evels normal, indicating no detected autoimmune disorder Social History: - Employment: Regular work attendance de spite health issues - Exercise/Activity: Engages in regular activities but history of prolonged hospitalizations interferes periodically - Current Nutrition: Not specifically di scussed [facility] Medical History (Updated 06/22/25 @ 11:22 by Alexandru Ng MD) CKD stage 3b, GFR 30-44 ml/min Diarrhea Congestive heart failure Atrial fibrillation Septic shock Group B streptococcal bacteriuria IBS (irritable bowel syndrome) History of cellulitis Elevated cholesterol HTN (hypertension) PONV (postoperative nausea and vomiting) Colon cancer screening Eczema DVT (deep venous thrombosis) Cough Primary osteoarthritis, right hand Primary osteoarthritis, left hand Gout Polymyositis Surgical History Hx of shoulder surgery (11/22/23) History of back surgery (~2019) Hx of endoscopy H/O colonoscopy (~02/11/19) Family History Mother No problems noted. Father No problems noted. 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 Broderick Paez, Camryn Hadley, Porfirio Acosta and colleagues, with an educational vero from [employer]. Review of Systems Const Details: - General: Denies current chills - Neurological: Reports past numbness in fingertips - Cardiovascular: Reports previous episodes of palpitations, no current issues - Respiratory: Denies shortness of breath - Gastrointestinal: Reports previous diarrhea with black stools, now resolved - Genitourinary: Denies current incontinence - Musculoskeletal: Reports muscle pain All systems reviewed & are unremarkable except as reviewed in HPI and above Physical exam (Primary Care) Vital Signs: Last Vital Signs Temp 97.3 F 06/22/25 10:38 Pulse 76 06/22/25 10:38 Resp 17 06/22/25 10:38 BP 130/72 06/22/25 10:38 Pulse Ox 98 06/22/25 10:38 Oxygen Delivery Method Room Air 06/22/25 10:38 BMI result Body Mass Index 32.6 Tobacco/Smoking Status: Tobacco use Status Tobacco use date assessed 06/04/25 06/22/25 10:47 Patient Tobacco Use Status Never used Tobacco 06/22/25 10:47 e-Cigarette/Vaping Use Never Used 06/22/25 10:47 Thrive Assessment: Date of Thrive Assessment Date Thrive assessed 06/04/25 06/22/25 10:47 Const Other: General: Alert and oriented, Well nourished, No acute distress. Eye: Pupils are equal, round and reactive to light, Intact accommodation, Extraocular movements are intact, Normal conjunctiva, Vision unchanged. HENT: Normocephalic, Atraumatic, Tympanic membranes are clear, Normal hearing, Oral mucosa is moist, No pharyngeal erythema, Ear canals patent. Respiratory: Lungs CTA bilaterally, No wheeze, Respirations are non-labored. Cardiovascular: Regular rate, Regular rhythm, S1 auscultated, S2 auscultated, No murmur, Good pulses equal in all extremities, Normal peripheral perfusion, No edema. Gastrointestinal: Soft, Non-tender, Non-distended, Normal bowel sounds, No organomegaly. Musculoskeletal: Normal range of motion, Normal strength, No tenderness, No swelling, No deformity, Normal gait. Integumentary: Warm, Dry, [place], Intact. Neurologic: Alert, Oriented, Normal sensory, Normal motor function, No focal defects, Cranial Nerves II-XII are grossly intact, Normal deep tendon reflexes. Psychiatric: Cooperative, Appropriate mood & affect, Normal judgment. Coding Level of Care Code Est Pt Level 4 (00474) Complex EM visit Add On G2211 Diagnoses Encounter for follow-up examination after completed treatment for conditions other than malignant neoplasm Z09 Primary hypertension I10 Hypertension type: primary hypertension Paroxysmal atrial fibrillation I48.0 Atrial fibrillation type: paroxysmal Elevated cholesterol E78.00 CKD stage 3b, GFR 30-44 ml/min N18.32 Chronic congestive heart failure, unspecified heart failure type I50.9 Heart failure chronicity: chronic Heart failure type: unspecified Assessment & Plan Assessment & Plan (1) Encounter for follow-up examination after completed treatment for conditions other than malignant neoplasm: Code(s): Z09 - Encounter for follow-up examination after completed treatment for conditions other than malignant neoplasm Plan: - Presented to the ED with chills, and pain of unclear etiology with no inciting event. - lab work unremarkable - Advise keeping a detailed symptom diary to identify any possible triggers. - Reassess if episodes persist or worsen. (2) HTN (hypertension): Comment: - Continue Metoprolol Succinate Code(s): I10 - Essential (primary) hypertension Category: Medical Qualifiers: Hypertension type: primary hypertension Qualified Code(s): I10 - Essential (primary) hypertension Plan: (3) Atrial fibrillation: Comment: - Continue Eliquis and monitor cardiac status periodically. Code(s): I48.91 - Unspecified atrial fibrillation Category: Medical Qualifiers: Atrial fibrillation type: paroxysmal Qualified Code(s): I48.0 - Paroxysmal atrial fibrillation (4) Elevated cholesterol: Comment: - Continue current atorvastatin therapy. Code(s): E78.00 - Pure hypercholesterolemia, unspecified Category: Medical (5) CKD stage 3b, GFR 30-44 ml/min: Comment: - Await nephrology follow-up and ensure compliance with laboratory testing before appointment. - Worsened to Stage 4 during receet ED visit but possibly secondary to Diarrhea Code(s): N18.32 - Chronic kidney disease, stage 3b Category: Medical (6) Congestive heart failure: Comment: - Continue Farxiga and diuretic regimen. Plan confirmed with recent cardiology visit. Code(s): I50.9 - Heart failure, unspecified Category: Medical Qualifiers: Heart failure chronicity: chronic Heart failure type: unspecified Qualified Code(s): I50.9 - Heart failure, unspecified Plan: Health Maintenance: - Review and encourage compliance with compression stocking use to manage leg swelling. - Discuss the benefits of the upcoming flu and COVID vaccinations and encourage their administration despite past mild post-vaccination reactions. Patient was informed and verbally consented to the use of an ambient scribe for clinic note documentation during this visit. Plan I have discussed with the patient the likely diagnoses and management plans related to her recent episodes of chills and the stability of her chronic conditions. Options for managing heart failure were reviewed, including the continued use of Farxiga and diuretics. We addressed the need for blood pressure management with metoprolol and anticoagulation for atrial fibrillation. I outlined the potential benefits of maintaining a symptom diary to better document episodes and assist in future evaluations. I encouraged scheduling follow-up care with her telecommunications engineer and curing supervisor. We discussed preventative measures, including vaccinations, and the importance of health maintenance through current medication regimens, consistent use of compression stockings, and self-monitoring of symptoms related to her chronic conditions. Supportive care instructions were provided, emphasizing the importance of returning if symptoms recur or change. Patient Instructions: - Keep a log of symptoms including any new episodes of chills or incontinence. - Continue current medications as prescribed. - Ensure upcoming appointments with the telecommunications engineer and curing supervisor are attended. - Wear compression stockings as much as possible to help manage leg swelling. - Consider getting flu and COVID vaccinations to reduce the risk of infection. - Monitor for any new or worsening symptoms and report to me if they occur. - Follow a healthy lifestyle including a balanced diet to manage cholesterol and overall wellness.
[2025-06-22 10:38] VITALS: BP 130/72; PULSE 76; RESP 17; TEMP 36.3; O2SAT 98; BMI 32.6
--- OUTSIDE RECORDS SUMMARY | 2025-06-22 12:24 | XMS_ITS | Encounter Summary ---
Author Organization [facility] Address [address] [place] [address] Care Team Providers Care Automotive Sales Associate Name Role Phone Kenisha Ozuna MD Primary Care Provider [phone] Encounter Details Date Type Department Care Team (Late st Contact Info) Description 06/09/2025 Scanned Document [facility] CARDIOLOGY SCAN Cardiology, Scan Social History Tobacco Use Types Packs/Day Years Used Date Smoking Tobacco: Never Smokeless Tobacco: Never Alcohol Use Standard Drinks/Week Comments Not Currently 0 (1 standard drink = 0.6 oz pur e alcohol) [facility] Utilities Answer Date Recorded In the past 12 months has [employer] electric, gas, oil, or water [employer] threatened to shut off services in your [...] time in the past 12 m [facility], were you homeless or living in a [...] on filedocumented in this encounter Care Teams Automotive Sales Associate Relationship Specialty Start Date End Date Kenisha Ozuna MD [address] [place] [address] [place] [phone] PCP - General Internal Medicine 01/19/25 documented as of this encounter
--- OUTSIDE RECORDS SUMMARY | 2025-06-22 12:24 | XMS_ITS | Patient Health Record ---
Author Organization [facility] Address [address] [place] [address] Care Team Providers Care Fish Filleter Name Role Phone Janny NAVARRO, Deb Primary Care Provider Hal Tracey Jr Unavailable [phone] Allergies Allergen (clinical drug ingredient) Drug/Non Drug Allergy documented on EMR Reaction Allergy Type Onset Date Status codeine Codeine Sulfate Unknown Drug Allergy A ctive methetrexol (uncoded) Unknown Allergy Active Reason For Referral No Information Medications Medication SIG (Take, Route, Frequency, Duration) Notes Start Date End Date Status Klor-Con M10 10 MEQ TAKE 1 TABLET BY MYRNA TH EVERY DAY Oral; Duration: 90 Active Atorvastatin Calcium 20 MG TAKE 1 TABLET BY MOUTH EVERY DAY Oral; Duration: 30 Active Metoprolol Tartrate 100 MG TAKE 1 TABLET BY MOUTH EVERY DAY Oral; Duration: 90 Active Colyte with Flavor Packs 240 GM As directed Orally Over the specified time.; Duration: 1 day(s) 11/06/2018 Active Leflunomide 10 MG TAKE 1 TABLET BY MYRNA TH EVERY DAY Oral; Duration: 90 Active Triamterene-HCTZ 75-50 MG TAKE 1 TABLET BY MOUTH EVERY DAY Oral; Duration: 90 Active chlordiazePOXIDE-Clidinium 5-2.5 MG TAKE 1-2 CAPSULES BY MOUTH DAILY IF NEEDED Oral; Duration: 30 Active Warfarin Sodium 2 MG TAKE 1 TABLET BY MO UTH EVERY DAY Oral; Duration: 90 Active Immunizations Vaccine Route Administration Date [...] Insured Coverage Start Date Coverage End Date [facility] [address] [facility] [place] [address] [phone] [id number] EMMETT JUÁREZ Self - patient is the insured Medical (General) History Medical History History ICD Code hypertension Denies CT,DM,CVA,Lung disease,renal dise ase Gout myositis hx of celulitis IBS Surgical History Surgery Date(Month/Year)
--- OUTSIDE RECORDS SUMMARY | 2025-06-22 12:24 | XMS_ITS | Clinical Summary ---
Author Organization [facility] Address [address] [place] [address] Care Team Providers Care Rail Walker Name Role Phone Kenisha Ozuna MD Primary Care Provider [phone] Allergies Active Allergy Reactions Criticality Noted Date [...] subsegmental atelectasis. Minimal interstitial pulmonary edema. BNP 32587 Trop 647 -> 542 SBP 105 - Per interventional cardiology plan for RHC/LHC +/- PCI 01/20 and plan for n.p.o. at midnight - [id number] 2 - Continue heparin GTT - Aspirin [...] subsegmental atelectasis. Minimal interstitial pulmonary edema. BNP 18206 Trop 647 -> 542 SBP 105 - Per interventional cardiology plan for RHC/LHC +/- PCI 01/20 and plan for n.p.o. at midnight - [id number] 2 - Continue heparin GTT - Aspirin [...] subsegmental atelectasis. Minimal interstitial pulmonary edema. BNP 17513 Trop 647 -> 542 SBP 105 - Per interventional cardiology plan for RHC/LHC +/- PCI 01/20 and plan for n.p.o. at midnight - [id number] 2 - Continue heparin GTT - Aspirin [...] subsegmental atelectasis. Minimal interstitial pulmonary edema. BNP 35571 Trop 647 -> 542 SBP 105 - Per interventional cardiology plan for RHC/LHC +/- PCI 01/20 and plan for n.p.o. at midnight - [id number] 2 - Continue heparin GTT - Aspirin [...] subsegmental atelectasis. Minimal interstitial pulmonary edema. BNP 10561 Trop 647 -> 542 SBP 105 - Per interventional cardiology plan for RHC/LHC +/- PCI 01/20 and plan for n.p.o. at midnight - [id number] 2 - Continue heparin GTT - Aspirin 81 mg once daily - Lipitor 80 mg once daily - Lasix 40 mg IV twice daily - Lopressor 20 mg twice daily - Lipids in a.m. - Strict I's and O's, daily weights, telemetry - K>4 and Mg >2 Encounters Date Type Department Care Team Description 06/09/2025 Scanned Document [facility] CARDIOLOGY SCAN Cardiology, Scan from Last 3 Months Social History Tobacco Use Types Packs/Day Years Used Date Smoking Tobacco: Never Smokeless Tobacco: Never Tobacco Cessation:Counseling Given: Not Answered Alcohol Use Standard Drinks/Week Comments Not Currently 0 (1 standard drink = 0.6 oz pur e alcohol) [facility] Utilities Answer Date Recorded In the past 12 months has e electric, gas, oil, or water [employer] threatened to shut off services in your [...] any time in the past 12 m [facility], were you homeless or living in a prison (including now)? No 01/19/2025 Comments Unknown Sex [...] to complete this topic Insurance [facility] MEDICARE PART A & B MEDICARE PART A & B [facility] Advance Directives * Full Code (Latest Code Status on File) Date Activated Date Inactivated Comments 01/18/2025 2:04 PM Care Teams Rail Walker Relationship Specialty Start Date End Date Kenisha Ozuna MD [address] [place] [address] [id number] PCP - General Internal Medicine 01/19/25
--- OUTSIDE RECORDS SUMMARY | 2025-06-22 12:24 | XMS_ITS | Clinical Summary ---
Author Organization [facility] Facility Address [address] [place] [address] Care Team Providers Care Cell Repairer Name Role Phone Deb Soliman MD Primary Care Provider [phone] Medications metoprolol tartrate (LOPRESSOR) 50 MG tablet [...] age to complete this topic Care Teams Cell Repairer Relationship Specialty Start Date End Date Deb Soliman MD [address] [place] [address] DR[address] [place] [address] PCP - General 09/19/20
== END 2025-06-22 11:02 | disposition home or self-care (01) ==
LOC: HO.HMCHD 10:31
PROVIDERS: PCP Physician Assistant; Visit Provider Student in an Organized Health Care Education/Training Program
DX: Z09 Encounter for follow-up examination after completed treatment for conditions other than malignant neoplasm (principal); I10 Essential (primary) hypertension; I48.0 Paroxysmal atrial fibrillation; E78.00 Pure hypercholesterolemia, unspecified; N18.32 Chronic kidney disease, stage 3b; I50.9 Heart failure, unspecified

== ENCOUNTER → 2025-06-22 10:30 | Outpatient (BNVA) | payer MEDICARE, OTHER, SELFPAY | PROVIDERS: PCP Physician Assistant; Visit Provider Student in an Organized Health Care Education/Training Program | DX: Z09 Encounter for follow-up examination after completed treatment for conditions other than malignant neoplasm (principal); I13.0 Hypertensive heart and chronic kidney disease with heart failure and stage 1 through stage 4 chronic kidney disease, or unspecified chronic kidney disease; N18.32 Chronic kidney disease, stage 3b; I50.9 Heart failure, unspecified; I48.0 Paroxysmal atrial fibrillation; E78.00 Pure hypercholesterolemia, unspecified; Z79.01 Long term (current) use of anticoagulants; Z79.899 Other long term (current) drug therapy | CPT/HCPCS: 99212 ==

== ENCOUNTER 2025-06-28 13:47 | Outpatient (AMB) | payer MEDICARE, OTHER, SELFPAY ==
[2025-06-28 13:48] VITALS: BP 130/86; PULSE 71; O2SAT 99; BMI 32.5
--- NOTE | 2025-06-28 13:48 | HO.NEPHOV_ITS ---
Vital Signs 06/28/25 13:48 Height 5 ft 1 in Weight 172 lb BMI 32.5 BP 130/86 Blood Pressure Location Rt brachial Position Sitting Pulse 71 Pulse Source Pulse Oximeter Pulse Oximetry (%) 99 Oxygen Delivery Method Room Air Intake Visit Reasons: 6 MO FU-Conf Biomedical Repair Technician Required: No Accompanied by: Self / Same As Patient Allergies hydroxychloroquine (Plaquenil) Allergy (Severe, Verified 06/28/25 13:50) Rash codeine (Codeine) Allergy (Intermediate, Verified 06/28/25 13:50) NAUSEA & VOMITING methotrexate Allergy (Intermediate, Verified 06/28/25 13:50) Diarrhea oxycodone Allergy (Intermediate, Verified 06/28/25 13:50) dizziness, nausea, vomiting tramadol Allergy (Intermediate, Verified 06/28/25 13:50) Diarrhea metronidazole Allergy (Unknown, Verified 06/28/25 13:50) Vomiting hydromorphone (From Dilaudid) Adverse Reaction (Verified 06/28/25 13:50) Vomiting Medication List - Last Reconciled 06/28/25 by Dexter Stewart MD acetaminophen ER 650 mg PO Q8H PRN allopurinol 100 mg PO DAILY apixaban (Eliquis) 5 mg PO BID atorvastatin 20 mg PO DAILY baclofen 10 - 20 mg (1 - 2 x 10 mg) PO BEDTIME dapagliflozin propanediol (Farxiga) 10 mg PO DAILY ferrous sulfate 325 mg PO DAILY furosemide 40 mg PO BID loperamide (Imodium A-D) 2 mg PO QID PRN metoprolol succinate ER 50 mg PO DAILY pantoprazole 40 mg PO DAILY potassium chloride ER 20 mEq PO DAILY vitamin B complex (B Complex-Vitamin B12 tablet) 1 tab PO DAILY [Vitamin D3 2,000 multiple units PO DAILY] HPI Comments Details: . Karol is a pleasant 68-year-old woman with a history of has been normal renal function. About 2 months ago she underwent a shoulder surgery. She has been taking ibuprofen 800 mg a day. About 2 weeks ago she had abdominal discomfort followed by diarrhea and vomiting. She was treated with ciprofloxacin and metronidazole. Two weeks ago she underwent blood work which should serum creatinine of 2.67 mg with a BUN of 66. Per potassium was 3.1. She was referred to days ago for evaluation of JÚNIOR. Of note she has had a rash in her right leg which has been itchy and she was treated with antibiotics. She has no history of gross hematuria no polyuria polydipsia. No cough no expectoration no hemoptysis. No shortness of breath no chest pain At present she has no diarrhea. 02/18/2024;c/o Icthing;Overall feeling better than previous visit 05/26/24;c/o swelling in right leg;No dyspnea 06/09/24;Still with leg edema and skin rash 06/28/25 - The patient is a 69-year-old female presenting for follow-up of multiple chronic conditions including heart failure and renal insufficiency. - Heart failure: Hospitalized in January for dyspnea and fluid overload; on Lasix 40 mg twice daily. bit she takes 80 mg QAM - Atrial fibrillation: Episodes of rapid heart rate; on Farxiga and Eliquis. - Renal insufficiency: Elevated creatinine levels, possibly due to diuretics. - Gastrointestinal bleeding: Black stools, evaluated in the emergency department. [facility] Medical History (Updated 06/22/25 @ 11:22 by Alexandru Ng MD) CKD stage 3b, GFR 30-44 ml/min Diarrhea Congestive heart failure Atrial fibrillation Septic shock Group B streptococcal bacteriuria IBS (irritable bowel syndrome) History of cellulitis Elevated cholesterol HTN (hypertension) PONV (postoperative nausea and vomiting) Colon cancer screening Eczema DVT (deep venous thrombosis) Cough Primary osteoarthritis, right hand Primary osteoarthritis, left hand Gout Polymyositis Surgical History Hx of shoulder surgery (11/22/23) History of back surgery (~2019) Hx of endoscopy H/O colonoscopy (~02/11/19) Family History Mother No problems noted. Father No problems noted. 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 Cognitive needs: No Hearing needs: No Vision needs: Yes (rx glasses) Physical Exam Vital Signs: Last Vital Signs Pulse 71 06/28/25 13:48 BP 130/86 06/28/25 13:48 Pulse Ox 99 06/28/25 13:48 Oxygen Delivery Method Room Air 06/28/25 13:48 BMI result Body Mass Index 32.5 Const General: comfortable Nutritional Appearance: well nourished Orientation/consciousness: patient oriented x3 HEENT Head: No normal to inspection Mouth: moist mucous membranes Neck Neck: Yes supple and Yes no JVD Resp Auscultation: clear to auscultation bilaterally and no rales Cardio Jugular venous distension: no JVD Palpation: no palpable S3 and no palpable S4 Heart sounds: no rubs GI Palpation (GI): Soft to palpation and nontender Percussion: No Fluid wave present General: Yes no CVA tenderness Back/Spine/Pelvis Back: no CVA tenderness Skin General skin exam: Excoriation Rashes: rashes noted (Both lower extremity) Neuro General: patient oriented x3 Extrem General: No clubbing Results Reviewed Nephrology Results: Hgb, (12.0-16.0) 12.9 g/dl 06/12/25 WBC, (4.8-10.8) 10.3 X10*3/uL 06/12/25 Plt Count, (160-400) 196 X10*3/uL 06/12/25 Sodium, (135-145) 140 mmol/L 06/12/25 Potassium, (3.3-5.1) 3.5 mmol/L 06/12/25 Chloride, (96-108) 102 mmol/L 06/12/25 Carbon Dioxide, (22-29) 26 mmol/L 06/12/25 BUN, (9-16) 37 mg/dL H 06/12/25 Creatinine, (0.5-1.4) 1.74 mg/dL H 06/12/25 Calcium, (8.4-10.2) 10.1 mg/dL Δ 06/12/25 Urine Protein, (Neg-Trace) Trace mg/dL 06/12/25 Renal US 02/20/24 Assessment & Plan Assessment & Plan (1) JÚNIOR (acute kidney injury): Code(s): N17.9 - Acute kidney failure, unspecified Category: Medical (2) Edema: Code(s): R60.9 - Edema, unspecified Category: Medical Plan . 69 yr old woman with JÚNIOR. Cr is worse Glomerular nephritis or interstitial disease seem unlikely based on the bland urine sediments and negative serology. With the new skin rash vasculitis was considered. But serologies have been negative. ANCA reordered and negative Obstructive uropathy seems unlikely based on the clinical picture. Serum creatinine is improved and back to baseline Continue to avoid NSAIDs. Increase p.o. fluid intake. She has anemia HCT improving Add FeSO4 325 mg PO daily SPEP noted- Immunefixation - shows mild IgG monoclonal band - ? significance Leg edema - improving ; doppler - No DVT Superficial thromboplebitis On Lasix 80mg QD s/p Venous ablation for varicose veins 06/28/25 REcent in creaese in creatinine ?hypoperfusion w/u ordered BMP in 2 weeks May need to decrease Lasix Orders: Orders Comprehensive Met. Panel 2 Weeks N18.32 - Chronic kidney disease, stage 3b Total Protein Urine Random 2 Weeks N18.32 - Chronic kidney disease, stage 3b UA and rflx microscopic 2 Weeks N18.32 - Chronic kidney disease, stage 3b Creatinine Urine 2 Weeks N18.32 - Chronic kidney disease, stage 3b Complete Blood Count Auto Diff 2 Weeks N18.32 - Chronic kidney disease, stage 3b Coding Level of Care Code Est Pt Level 4 (87255) Diagnoses JÚNIOR (acute kidney injury) N17.9 Edema R60.9
== END 2025-06-28 14:05 | disposition home or self-care (01) ==
LOC: HO.HKA 13:48
PROVIDERS: PCP Internal Medicine; Visit Provider Internal Medicine Hypertension Specialist
DX: N17.9 Acute kidney failure, unspecified (principal); R60.9 Edema, unspecified
CPT/HCPCS: 99214

== ENCOUNTER → 2025-06-28 13:47 | Outpatient (BNVA) | payer MEDICARE, OTHER, SELFPAY | PROVIDERS: PCP Internal Medicine; Visit Provider Internal Medicine Hypertension Specialist | DX: N17.9 Acute kidney failure, unspecified (principal); R60.9 Edema, unspecified; Z79.899 Other long term (current) drug therapy | CPT/HCPCS: 99212 ==

== ENCOUNTER 2025-07-19 05:50 | Inpatient (IN) | payer MEDICARE, OTHER, SELFPAY ==
[2025-07-19] VITALS (23 sets, daily range): BP systolic 92–134; BP diastolic 49–75; PULSE 68–113; RESP 12–23; TEMP 37.1–39.3; O2SAT 81–98; BMI 31.4
--- NOTE | 2025-07-19 | ECG_ITS ---
Test Reason : REPEAT Blood Pressure : */* mmHG Vent. Rate : 72 BPM Atrial Rate : 72 BPM P-R Int : 168 ms QRS Dur : 68 ms QT Int : 438 ms P-R-T Axes : 49 8 81 degrees QTcB Int : 479 ms Normal sinus rhythm Low voltage QRS Cannot rule out Anterior infarct , age undetermined Abnormal ECG When compared with ECG of 19-Jul-2025 06:02, Premature ventricular complexes are no longer Present Referred By: Joe Lake Electronically Signed By: NIKO DEY MD
--- NOTE | ~2025-07-19 | XR_ITS ---
CLINICAL HISTORY: Fever 1 view chest x-ray Comparison: CR - XR CHEST 1V - 06/12/25 23:59 EDT Findings: No consolidation or effusion. Normal size heart. No acute fracture. IMPRESSION: No acute cardiopulmonary abnormality. This document has been electronically signed by: Saleem Chauhan on 07/19/2025 07:04:56
--- NOTE | ~2025-07-19 | XR_ITS ---
EXAMINATION: XR CHEST CLINICAL INFORMATION: cough COMPARISON: July 24, 2025. TECHNIQUE: AP view of the chest was obtained. FINDINGS: Pulmonary reticular pattern. Prominence of the interstitial markings. No hyperinflation. Cardiomediastinal silhouette size demonstrate a masslike opacity right perihilar region. Multilevel spondylosis. Radiopaque anchors in the right humerus/greater tuberosity. XR/XR chest 1V IMPRESSION: Pulmonary edema versus multifocal pneumonia. Masslike opacity right perihilar. Electronically signed by: Abhishek Dowling MD 07/26/2025 03:57 PM EST
--- NOTE | ~2025-07-19 | XR_ITS ---
CLINICAL HISTORY: wheezing, crackles 1 view chest x-ray Comparison: CR - XR CHEST 1V - 07/19/25 06:39 EST CR - XR CHEST 1V - 06/12/25 23:59 EDT Findings: The lungs are predominantly clear. There is some hazy opacity in the left lung base which may be atelectasis. Normal size heart. No acute fracture. IMPRESSION: 1. Suspect atelectasis left lung base. This document has been electronically signed by: Shey Harvey MD on 07/24/2025 08:57:28
--- NOTE | ~2025-07-19 | US_ITS ---
EXAMINATION: US TRIPLEX LOWER EXTREMITY, BILATERAL CLINICAL INFORMATION: Lower extremity edema, bilateral COMPARISON: None available. TECHNIQUE: Color-flow triplex imaging with spectral analysis and compression Doppler were performed on the bilateral lower extremities. FINDINGS: Respiratory variation, normal compression and augmented flow are noted throughout the bilateral lower extremities. The visualized common femoral vein, superficial femoral vein, profunda femoral vein, popliteal vein and midcalf peroneal and posterior tibial venous segments show no evidence of deep venous thrombosis bilaterally. US/US venous duplex LE BI IMPRESSION: No evidence of deep venous thrombosis involving the bilateral lower extremities. Electronically signed by: Alfredo Pack MD 07/19/2025 05:16 PM [facility]
--- NOTE | ~2025-07-19 | CT_ITS ---
EXAMINATION: CT CHEST WITHOUT IV CONTRAST INDICATION: sob, fever COMPARISON: Previous chest CTA January 2025 and chest x-ray most recent July 26, 2025 TECHNIQUE: Helical CT scan of the chest was performed without intravenous contrast. Coronal and sagittal reformatted images were generated and reviewed. This CT exam was performed with one or more of the following dose reduction techniques: automated exposure control, adjustment of the mA and/or kV according to patient size, use of iterative reconstruction technique. DLP: 170 mGy-cm CHEST: THYROID: The thyroid is unremarkable. LUNGS: There are new clustered right upper lobe nodules measuring up to 4 mm axial image 132 series 3. There is a small surrounding groundglass attenuation. There is a separate 3 mm right upper lobe nodule axial image 68 series 3. There is increasing atelectasis/consolidation in the right middle and bilateral lower lobes, greatest in the right lower lobe. There scattered areas of central bronchial wall thickening. There is narrowing of the right bronchus intermedius. No endobronchial lesion. Previously seen areas of increased groundglass attenuation and interlobular septal thickening on January 2025 exam have resolved. MEDIASTINUM: There are small mediastinal lymph nodes. No enlarged mediastinal lymph nodes are seen. Normal thyroid gland. Normal-appearing esophagus. ALEXEI: Evaluation of the hilar regions is limited by lack of intravenous contrast material. CARDIOVASCULATURE: The heart is normal in size. There is no pericardial effusion. The thoracic aorta is normal in caliber. Mild to moderate aortic valve calcification. DEGREE OF CORONARY CALCIFICATION: mild PLEURA: Moderate left and large right pleural effusions. No pneumothorax. MAIN AIRWAYS: The mainstem bronchi and proximal branches are patent. AXILLA: There is no axillary lymphadenopathy. No chest wall mass. There are small bilateral supraclavicular lymph nodes. BONES AND SOFT TISSUES: Degenerative changes of the spine. UPPER ABDOMEN: The visualized portions of the liver, spleen, and adrenals have an unremarkable unenhanced appearance. CT/CT chest wo IV con IMPRESSION: Bilateral pleural effusions, large on the right and moderate on the left. Bilateral lower lobe and right middle lobe atelectasis/consolidation, greatest in the right lower lobe. This is increased from previous CT. There is diffuse central bronchial wall thickening and narrowing of the right bronchus intermedius. No endobronchial lesion. Small mediastinal lymph nodes. Evaluation for hilar adenopathy limited without IV contrast. Recommend chest CT follow-up following treatment. New small clustered right upper lobe nodules surrounding groundglass attenuation from January 2025, probably infectious or inflammatory in nature. Electronically signed by: Katia Hui MD 07/28/2025 11:03 AM [facility]
--- NOTE | ~2025-07-19 | US_ITS ---
CLINICAL HISTORY: elevated liver enzymes and JÚNIOR --- Additional Notes or Special Instructions: liver gb only US abdomen limited Comparison: None provided Findings: The visualized pancreas is normal. The aorta and inferior vena cava are normal caliber. The liver is normal in size and echotexture. There is no intrahepatic bile duct dilatation. The common duct is 8 mm in diameter. Moderately distended gallbladder with possible debris is present. Positive sonographic Evans's sign. No gallbladder wall thickening which measures 4 mm The main portal vein is antegrade. No ascites. IMPRESSION: Moderately distended gallbladder with debris. No definite gallstones. Positive sonographic Evans's sign. No pericholecystic fluid or gallbladder wall thickening. Findings are equivocal. Correlate clinically and serologically. If clinically suspicious for acute cholecystitis, a nuclear medicine HIDA scan can be obtained for further evaluation. This document has been electronically signed by: Imelda Lin MD on 07/19/2025 20:29:08
--- NOTE | 2025-07-19 05:59 | ECG_ITS ---
Test Reason : SEPSIS Blood Pressure : */* mmHG Vent. Rate : 96 BPM Atrial Rate : 96 BPM P-R Int : 142 ms QRS Dur : 78 ms QT Int : 362 ms P-R-T Axes : 49 -2 47 degrees QTcB Int : 457 ms Sinus rhythm with frequent Premature atrial complexes Otherwise normal ECG When compared with ECG of 18-Jan-2025 02:52, Vent. rate has decreased Burst of PACs no longer present ST no longer elevated in Inferior leads Non-specific change in ST segment in Lateral leads Nonspecific T wave abnormality, worse in Lateral leads Referred By: Fozia Sharma Electronically Signed By: NIKO DEY MD
[2025-07-19 06:21] LABS: Hematocrit 43.6 % (37.0-47.0); Hemoglobin 14.2 g/dl (12.0-16.0); Imm Gran Abs Auto 0.34 X10*3/uL (0.00-0.03); Imm Gran Pct Auto 1.3 % (0.0-0.4); Lymphocytes Absolute Auto 0.4 X10*3/uL (1.2-4.9); MANUAL DIFF FLAG SCAN; Mean Corpuscular HGB Conc 32.6 g/dl (31.0-35.0); Mean Corpuscular Hemoglobin 30.9 pg (27.0-33.0); Mean Corpuscular Volume 94.8 fL (80.0-98.0); NRBC Abs Auto 0.000 X10*3/uL (0.0-0.012); NRBC Pct Auto 0.0 /100WBC (0.0-0.2); Platelet Count 210 X10*3/uL (160-400); Red Blood Count 4.60 X10*6/uL (4.20-5.50); SCAN SMEAR FLAG 1; White Blood Count 27.1 X10*3/uL (4.8-10.8)
--- NOTE | 2025-07-19 06:22 | ED.FEVER ---
HPI - Fever General Chief Complaint: Fever Stated Complaint: ? Sepsis Alert, weakness, fall Source: patient, EMS and old records reviewed Mode of arrival: EMS Limitations: no limitations History of Present Illness ED Provider: KADEN HPI Narrative: 69-year-old female with past medical history of CKD, CHF, AFib on Eliquis, group B streptococcal bacteremia, anemia, hyperlipidemia, hypertension, rheumatoid arthritis who presents with feeling unwell yesterday. She went to [facility] and then started to feel very cold and weak on the way home. She denies any cough, urinary symptoms, abdominal pain, nausea vomiting diarrhea. She states she tried to go to the bathroom to urinate and was unable to get herself off the toilet. She states she was on the toilet for a few hours and eventually rolled herself off the toilet onto the floor, denies head injury and then ended up crawling to the living room to call for help. She denies any trauma, headache. She did check her temperature which was 102 and was unable to take any medication. She denies any sick contacts or travel history. She denies any urinary symptoms. She notes her mouth is very dry and she is very thirsty MD elicited complaint: fever, malaise and weakness Onset (ago): day(s) (1) Exacerbating factors: exertion Relieving factors: nothing Associated symptoms: chills Treatments prior to arrival fever: none Related Data Home Medications ?Medication ?Instructions ?Recorded ?Confirmed acetaminophen 650 mg 650 mg PO Q8H PRN Pain 07/21/20 07/09/25 tablet,extended release vitamin B complex (B 1 tab PO DAILY 07/21/20 07/09/25 Complex-Vitamin B12 tablet) allopurinol 100 mg tablet 100 mg PO DAILY 01/18/22 07/09/25 Vitamin D3 2,000 units PO DAILY 09/30/23 07/09/25 apixaban 5 mg tablet (Eliquis) 5 mg PO BID 01/26/25 07/09/25 dapagliflozin propanediol 10 mg 10 mg PO DAILY 02/25/25 07/09/25 tablet (Farxiga) ferrous sulfate 325 mg (65 mg 325 mg PO DAILY 06/22/25 07/09/25 iron) tablet metoprolol succinate 50 mg 50 mg PO DAILY 06/22/25 07/09/25 tablet,extended release 24 hr potassium chloride 20 mEq 20 meq PO DAILY 06/22/25 07/09/25 tablet,extended release Previous Rx's ?Medication ?Instructions ?Recorded baclofen 10 mg tablet 10 - 20 mg (1 - 2 x 10 mg) PO 02/25/25 BEDTIME #180 tabs furosemide 40 mg tablet 40 mg PO BID #180 tabs 02/25/25 pantoprazole 40 mg tablet,delayed 40 mg PO DAILY #90 tabs 05/11/25 release atorvastatin 20 mg tablet 20 mg PO DAILY 90 days #90 tabs 07/09/25 loperamide 2 mg capsule (Imodium 2 mg PO QID PRN diarrhea 60 days 07/09/25 A-D) #180 caps Allergies Allergy/AdvReac Type Severity Reaction Status Date / Time hydroxychloroquine Allergy Severe Rash Verified 07/19/25 06:02 (Plaquenil) codeine (Codeine) Allergy Intermediate NAUSEA & Verified 07/19/25 06:02 VOMITING methotrexate Allergy Intermediate Diarrhea Verified 07/19/25 06:02 oxycodone Allergy Intermediate dizziness, Verified 07/19/25 06:02 nausea, vomiting tramadol Allergy Intermediate Diarrhea Verified 07/19/25 06:02 metronidazole Allergy Unknown Vomiting Verified 07/19/25 06:02 hydromorphone (From Dilaudid) AdvReac Vomiting Verified 07/19/25 06:02 Review of Systems Review of Systems: Constitutional : Positive Fever, positive Chills, positive Fatigue ENT/Mouth : No sore throat, No Rhinorrhea Eyes: No Eye Pain, No Swelling, No Redness Cardiovascular : No Chest Pain, No SOB, No Dyspnea on Exertion Respiratory : No Cough, No Sputum Gastrointestinal : No Nausea, No Vomiting, No Diarrhea, No abdominal Pain Genitourinary : No Dysuria, No Urinary Frequency, No Hematuria, Musculoskeletal : No joint pain, No Myalgias, No Joint Swelling Skin : No Skin Lesions, No rash Neuro : No Weakness, No Numbness, No Dizziness, no Headache All other systems reviewed and are negative PMFSH Past Medical History Attestation statement: The following information was validated with the patient. Source: old records reviewed Medical History CKD stage 3b, GFR 30-44 ml/min Diarrhea Congestive heart failure Atrial fibrillation Septic shock Group B streptococcal bacteriuria IBS (irritable bowel syndrome) History of cellulitis Elevated cholesterol HTN (hypertension) PONV (postoperative nausea and vomiting) Colon cancer screening Eczema DVT (deep venous thrombosis) Cough Primary osteoarthritis, right hand Primary osteoarthritis, left hand Gout Polymyositis Surgical History Hx of shoulder surgery (11/22/23) History of back surgery (~2019) Hx of endoscopy H/O colonoscopy (~02/11/19) Family History Family History Mother No problems noted. Father No problems noted. 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 Oriented X3. Mild acute distress. Eyes: Pupils equal, round and reactive to light. ENT: Pharynx dry mucous membranes, atraumatic ENT exam Neck: Normal inspection. Neck supple. CVS: Normal heart rate and rhythm. Pulses normal. Respiratory: No respiratory distress. Breath sounds normal. Abdomen: Soft and nontender. Skin: Skin warm and dry. Normal skin color. Normal skin turgor. Extremities: No lower extremity edema. No signs of cellulitis at this time Neuro: Oriented X 3. No motor deficit. No sensory deficit. CN2-12 intact Course Course Course Narrative: 8:02 AM 07/19/2025 (KADEN MERRITT): We will continue fluid rate, her blood pressure initially was 90 over 50s but map maintained her current blood pressure is 111/50 Reevaluation(s) Reevaluation #1: 9:51 AM 07/19/2025 (KADEN MERRITT): All her labs do not look good she clinically is alert and oriented x3 her biggest complaint is she wants a warmer blanket Medications Administered Generic Name Dose Route Start Last Admin Trade Name Freq PRN Reason Stop Dose Admin Lactated Ringer's 1,000 mls @ 100 mls/hr 07/19/25 07:15 07/19/25 09:06 Lr IVCONT 0 mls/hr .Q10H GOOD Infusion Discontinued Medications Generic Name Dose Route Start Last Admin Trade Name Freq PRN Reason Stop Dose Admin Acetaminophen 1,000 mg in 100 mls @ 400 mls/hr 07/19/25 05:58 07/19/25 06:27 Ofirmev IV 07/19/25 06:12 Infused ONCE ONE Infusion Ceftriaxone Sodium 1 gm/ 50 mls @ 100 mls/hr 07/19/25 05:58 07/19/25 06:44 Sodium Chloride IV 07/19/25 06:27 Infused ONCE ONE Infusion Lactated Ringer's 500 mls @ 999 mls/hr 07/19/25 06:45 07/19/25 07:40 Lr IV 07/19/25 07:15 Infused .Q31M GOOD Infusion Vancomycin HCl 2,000 mg in 500 mls @ 250 mls/hr 07/19/25 07:39 07/19/25 08:05 Vancomycin/Ns IV 07/19/25 09:38 250 mls/hr ONCE ONE Administration Lactated Ringer's 500 mls @ 999 mls/hr 07/19/25 08:00 07/19/25 09:08 Lr IV 07/19/25 08:30 999 mls/hr .Q31M GOOD Infusion Potassium Chloride 40 meq 07/19/25 07:04 07/19/25 07:52 Potassium Chloride Er 20 Meq Tab.Er.Prt PO 07/19/25 07:05 40 meq ONCE ONE Administration Medical Decision Making Medical Decision Making [facility] Narrative: 69-year-old female with past medical history of CKD, CHF, AFib on Eliquis, group B streptococcal bacteremia, anemia, hyperlipidemia, hypertension, rheumatoid arthritis is now here with complaints of overall just not feeling well starting yesterday. She arrives with a fever of 102.6, she has malaise, fevers, chills. She has no localizing symptoms on history or exam. She will go through sepsis protocol, I have started IV antibiotics, IV Tylenol/culture/lactic acid, viral panel, chest x-ray. Differential includes sepsis, UTI, pneumonia, viral syndrome, bacteremia It looks like in January of 2025 she was transferred to [facility] and at that time ended up having group B strep bacteremia but her troponins were 4500 - had normal cardiac catheterization at that time for her reports no blockages but was told it was due to infection Differential Diagnosis Differential Diagnoses: The differential diagnosis associated with the presentation includes Sepsis, UTI, pneumonia, viral syndrome, bacteremia Admission/Observation Consideration of admission/observation: Escalation of care including admission/observation considered Need admission for sepsis treatment, echo, monitoring of labs Consult Healthcare Provider Management of the patient was discussed with: Hospitalist (Will admit) and Furniture Finisher Dr. Juarez is aware the troponins states could be takotsubo cardiomyopathy I am going to admit for echo given lack of chest pain and suspected secondary demand I will be holding IV heparin Lab Data MDM Lab Attestation statement: I reviewed the patient's lab results. 07/19/25 06:12 07/19/25 06:12 Labs: Lab Results 07/19/25 07/19/25 Range/Units 06:12 08:40 WBC 27.1 H (4.8-10.8) X10*3/uL RBC 4.60 (4.20-5.50) X10*6/uL Hgb 14.2 (12.0-16.0) g/dl Hct 43.6 (37.0-47.0) % MCV 94.8 (80.0-98.0) fL MCH 30.9 (27.0-33.0) pg MCHC 32.6 (31.0-35.0) g/dl RDW 15.1 (11.0-16.0) % Plt Count 210 (160-400) X10*3/uL MPV 10.5 (9.4-12.3) fL Immature Gran % (Auto) 1.3 H (0.0-0.4) % Neut % (Auto) 91.5 H (45-73) % Lymph % (Auto) 1.6 L (20-40) % [place] % (Auto) 5.2 (2-11) % Eos % (Auto) 0.0 (0-4) % Baso % (Auto) 0.4 (0-2) % Lymph # (Auto) 0.4 L (1.2-4.9) X10*3/uL [place] # (Auto) 1.4 H (0.1-1.2) X10*3/uL Eos # (Auto) 0.0 (0.0-0.4) X10*3/uL Baso # (Auto) 0.1 (0.0-0.2) X10*3/uL Abs Immat Gran (auto) 0.34 H (0.00-0.03) X10*3/uL Absolute Neuts (auto) 24.8 H (2.0-8.3) x10*3/uL Absolute Nucleated RBC 0.000 (0.0-0.012) X10*3/uL Nucleated RBC % (auto) 0.0 (0.0-0.2) /100WBC Smear Tech's Comments VERIFIED Sodium 144 (135-145) mmol/L Potassium 3.0 L D (3.3-5.1) mmol/L Chloride 104 (96-108) mmol/L Carbon Dioxide 24 (22-29) mmol/L Anion Gap 19 (12-20) BUN 33 H (9-16) mg/dL Creatinine 1.42 H (0.5-1.4) mg/dL Estim Creat Clear Calc 36.0 Estimated GFR 37 Random Glucose 148 H (60-115) mg/dL Lactic Acid 3.1 H* (0.5-2.0) mmol/L Lactic Acid F/U @ 2Hr 3.7 H* (0.5-2.0) mmol/L Calcium 10.3 H (8.4-10.2) mg/dL Magnesium 1.6 (1.6-2.6) mg/dL Total Bilirubin 1.5 H (0.0-1.0) mg/dL Direct Bilirubin 0.4 (0.0-0.5) mg/dL AST 85 H (5-31) U/L ALT 24 (0-31) U/L Alkaline Phosphatase 110 (39-117) U/L Total Creatine Kinase 2194 H (26-140) U/L Troponin I High Sens 8337.7 H* D (<3.5-17.0) ng/L C-Reactive Protein 9.88 H (< or = 0.50) mg/dL Total Protein 7.7 (6.5-8.0) g/dL Albumin 4.6 (3.5-5.0) g/dL Lipase 6 L (8-78) U/L Procalcitonin 12.21 ng/mL Influenza Type A (PCR) NEGATIVE (Negative) Influenza Type B (PCR) NEGATIVE (Negative) RSV RNA Qual (PCR) NEGATIVE (Negative) SARS-CoV-2 RNA (RT-PCR) NEGATIVE (Negative) Independent Interpretation I performed an independent interpretation of an: EKG and Plain X-Ray (No consolidation) Interpretation: Rate: 96 Rhythm: Sinus rhythm with PACs Dobson: Normal Normal P waves. Normal HUMBERTO. Normal QRS complex. ST T wave : There is artifact, but there is no ST elevation, she has flattening of the T-wave in lateral leads qTC: 457 prior studies: No acute ischemia The study has been interpreted contemporaneously by me. . Radiology Impression Discussion of test interpretation with radiology: I have reviewed the radiologist's reading. Independent Historian Clinical information obtained from an independent historian. History obtained from or confirmed by: EMS External Record Review External record reviewed: Inpatient record, Outpatient record, Prior outpatient labs and Prior outpatient radiology Critical Care Time Critical Care Time Critical Care Time: Yes Total Critical Care Time: 70 Attestation: Time is exclusive of separately billable procedures. Time includes: direct patient care, patient reassessment, coordination of patient care, interpretation of data (laboratory data, pulse oximetry, chest xrays), review of patient's medical records, medical consultation and documentation of patient care. Sepsis protocol Procedures excluded from critical care time: electrocardiography. I attest to this time spent taking care of the patient Discharge Plan Discharge Clinical Impression: Acidosis, lactic, Acute hypokalemia, Elevated troponin Sepsis Qualifiers: Sepsis type: sepsis due to unspecified organism Sepsis acute organ dysfunction status: unspecified Qualified Code(s): A41.9 - Sepsis, unspecified organism Elevated WBC count Qualifiers: Leukocytosis type: unspecified Qualified Code(s): D72.829 - Elevated white blood cell count, unspecified Fever Qualifiers: Fever type: unspecified Qualified Code(s): R50.9 - Fever, unspecified Rhabdomyolysis Qualifiers: Rhabdomyolysis type: non-traumatic Qualified Code(s): M62.82 - Rhabdomyolysis Patient Disposition: Admitted As Inpatient Print Language: Uzbek
[2025-07-19] MEDS: Lactated Ringers 500 ML 999 ML IV ×2 (06:54→07:58)
[2025-07-19 07:02] LABS: Alanine Aminotransferase 24 U/L (0-31); Albumin Level 4.6 g/dL (3.5-5.0); Alkaline Phosphatase 110 U/L (39-117); Anion Gap 19 (12-20); Aspartate Amino Transferase 85 U/L (5-31); Blood Urea Nitrogen 33 mg/dL (9-16); Calcium 10.3 mg/dL (8.4-10.2); Carbon Dioxide 24 mmol/L (22-29); Chloride 104 mmol/L (96-108); Creatinine Clr Calc Pharmacy 36.0; Estimated Glomerular Filt Rate 37; Lipase 6 U/L (8-78); Magnesium 1.6 mg/dL (1.6-2.6); Potassium 3.0 mmol/L (3.3-5.1); Resp Syncy Virus RNA Qual PCR NEGATIVE (Negative); SARS COV2 PCR INHOUSE NEGATIVE (Negative); Sodium 144 mmol/L (135-145); Total Protein 7.7 g/dL (6.5-8.0)
[2025-07-19 07:16] LABS: Procalcitonin 12.21 ng/mL
--- OUTSIDE RECORDS SUMMARY | 2025-07-19 07:50 | XMS_ITS | Encounter Summary ---
Author Organization [facility] Address [address] [place] [id number] Care Team Providers Care Telephone Clerks Supervisor Name Role Phone Kenisah Ozuna MD Primary Care Provider [phone] Encounter Details Date Type Department Care Team (Late st Contact Info) Description 06/09/2025 Scanned Document [facility] CARDIOLOGY SCAN Cardiology, Scan Social History Tobacco Use Types Packs/Day Years Used Date Smoking Tobacco: Never Smokeless Tobacco: Never Alcohol Use Standard Drinks/Week Comments Not Currently 0 (1 standard drink = 0.6 oz pur e alcohol) [facility] Utilities Answer Date Recorded In the past 12 months has [employer] electric, gas, oil, or water [employer] threatened to shut off services in your [...] any time in the past 12 m [facility], were you homeless or living in a long-term (including now)? No 01/19/2025 Comments Unknown Sex [...] on filedocumented in this encounter Care Teams Telephone Clerks Supervisor Relationship Specialty Start Date End Date Kenisha Ozuna MD [address] [place] [address] [place] [address] PCP - General Internal Medicine 01/19/25 documented as of this encounter
--- OUTSIDE RECORDS SUMMARY | 2025-07-19 07:50 | XMS_ITS | Clinical Summary ---
Author Organization [facility] Facility Address [address] [place] [address] Care Team Providers Care Rn Pacu Name Role Phone Deb Soliman MD Primary Care Provider [phone] Medications metoprolol tartrate (LOPRESSOR) 50 MG tablet [...] age to complete this topic Care Teams Rn Pacu Relationship Specialty Start Date End Date Deb Soliman MD [address] [place] [address] [address] [place] [address] PCP - General 09/19/20
--- OUTSIDE RECORDS SUMMARY | 2025-07-19 07:50 | XMS_ITS | Patient Health Record ---
Author Organization [facility] Address [address] [place] [address] Care Team Providers Care Beauty Artist Name Role Phone Janny NAVARRO, Deb Primary Care Provider Hal Tracey Jr Unavailable [phone] Allergies Allergen (clinical drug ingredient) Drug/Non Drug [...] Insured Coverage Start Date Coverage End Date [facility] [address] [place] [address] [id number] EMMETT JUÁREZ Self - patient is the insured Medical (General) History Medical History History ICD Code hypertension Denies PA,DM,CVA,Lung disease,renal dise ase Gout myositis hx of celulitis IBS Surgical History Surgery Date(Month/Year)
--- OUTSIDE RECORDS SUMMARY | 2025-07-19 07:50 | XMS_ITS | Clinical Summary ---
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 Minimal interstitial pulmonary edema. BNP 54659 Trop 647 -> 542 SBP 105 - Per interventional cardiology plan for RHC/LHC +/- PCI 01/20 and plan for n.p.o. at midnight - [id number] 2 - Continue heparin GTT - Aspirin [...] subsegmental atelectasis. Minimal interstitial pulmonary edema. BNP 93001 Trop 647 -> 542 SBP 105 - Per interventional cardiology plan for RHC/LHC +/- PCI 01/20 and plan for n.p.o. at midnight - [id number] 2 - Continue heparin GTT - Aspirin [...] subsegmental atelectasis. Minimal interstitial pulmonary edema. BNP 19355 Trop 647 -> 542 SBP 105 - Per interventional cardiology plan for RHC/LHC +/- PCI 01/20 and plan for n.p.o. at midnight - [id number] 2 - Continue heparin GTT - Aspirin [...] subsegmental atelectasis. Minimal interstitial pulmonary edema. BNP 87555 Trop 647 -> 542 SBP 105 - Per interventional cardiology plan for RHC/LHC +/- PCI 01/20 and plan for n.p.o. at midnight - [id number] 2 - Continue heparin GTT - Aspirin [...] subsegmental atelectasis. Minimal interstitial pulmonary edema. BNP 06538 Trop 647 -> 542 SBP 105 - Per interventional cardiology plan for RHC/LHC +/- PCI 01/20 and plan for n.p.o. at midnight - [id number] 2 - Continue heparin GTT - Aspirin 81 mg once daily - Lipitor 80 mg once daily - Lasix 40 mg IV twice daily - Lopressor 20 mg twice daily - Lipids in a.m. - Strict I's and O's, daily weights, telemetry - K>4 and Mg >2 Encounters Date Type Department Care Team Description 06/09/2025 Scanned Document [facility] CARDIOLOGY SCAN Cardiology, Scan from Last 3 Months Social History Tobacco Use Types Packs/Day Years Used Date Smoking Tobacco: Never Smokeless Tobacco: Never Tobacco Cessation:Counseling Given: Not Answered Alcohol Use Standard Drinks/Week Comments Not Currently 0 (1 standard drink = 0.6 oz pur e alcohol) [facility] Utilities Answer Date Recorded In the past 12 months has e electric, gas, oil, or water [employer] threatened to shut off services in your [...] any time in the past 12 m [facility], were you homeless or living in [...] 1974 Mammogram 1995 Colonoscopy 2000 RSV Vaccine 50 years and old er and Patients (1 - Risk 50-74 years 1-dose series) 2005 DXA Bone Density (Females,Ag es 65 and older) 2020 Influenza Vaccine 04/09/2025 Hepatitis B Vaccines Aged Out No long er eligible based on patient's age to complete this topic Insurance [facility] MEDICARE PART A & B MEDICARE PART A & B [facility] Advance Directives * Full Code (Latest Code Status on File) Date Activated Date Inactivated Comments 01/18/2025 2:04 PM Care Teams Egg Processing Supervisor Relationship Specialty Start Date End Date Kenisha Ozuna MD [address] [place] [phone] PCP - General Internal Medicine 01/19/25
[2025-07-19] MEDS: Lactated Ringers 1,000 ML 100 ML IVCONT ×2 (07:52→13:34)
[2025-07-19] MEDS: Potassium Chloride ER 20 MEQ TAB.ER.PRT 40 MEQ PO (07:52)
--- NOTE | 2025-07-19 07:52 | PC.NURSE ---
Assumed care of pt at 0700, pt resting in bed quietly, a/ox3, respirations even and unlabored, no increased wob/sob noted, maintaining O2 sat >92% on RA, appears in no distress. Normal sinus on cardiac rehabilitation specialist, HR 70s-80s. Denies SOB/CP/Abd pain/N/V. IV fluids finished infusing per NOV- BPs documented, refer to sepsis worksheet for times. BPs noted to be soft 90s/50s- MD Sharma made aware, vitals updated in worklist. Per MD- verbal order to hang 500ml bolus of LR. Maintenance fluids paused in NOV to infuse LR bolus. BPs cycling q15 min to monitor Pt attempted to provide urine sample- was unable to. Bladder scan showed 67mls- will re scan patient and attempt urine sample at a later time, MD aware. Rectal temp remains >101- rectal probe placed to monitor for temp decreasing,. Pt updated on plan of care, call farias within reach, all needs met at this time.
[2025-07-19] MEDS: vancomycin/NS 2,000 MG/500 ML PLAST..BAG 250 MG IV (08:05)
--- NOTE | 2025-07-19 08:06 | PC.NURSE ---
Per MD Sharma- d/c second 500ml bolus of LR d/t pt hx of CHF. Times/waste amount reflected in MAR. Maintenance fluids restarted, infusing per MAR @100ml/hr. BPs increased to 100s/50s- cycling q15 to monitor, MD aware. Vitals updated in worklist.
--- NOTE | 2025-07-19 08:07 | MHC.EDTECH ---
attempted to get a urine sample, pt couldnt go.
[2025-07-19 08:17] LABS: Reflex Lactate? Lactic Acid Added
[2025-07-19 09:03] LABS: ~Lactic Acid-LAB USE ONLY 3.7 mmol/L (0.5-2.0)
--- NOTE | 2025-07-19 09:10 | PC.NURSE ---
Per MD Sharma- continue 500ml bolus of LR. BPs remain soft 90s/50s. 500ml LR bolus infusing per MAR, maintenance fluids paused.
[2025-07-19 10:26] LABS: Appearance Urine Cloudy; Glucose Urine UA 500 mg/dL (Negative); PH 5.5 (5.0-9.0); Specific Gravity - Urine 1.020 (1.005-1.025); UMIC TRIGGER UACC YES
[2025-07-19 10:34] LABS: UACC Culture Trigger YES
[2025-07-19 10:42] LABS: Reflex Lactate? 2 Y
--- NOTE | 2025-07-19 11:15 | PM.IMHP ---
History of Present Illness Date of Service: 07/19/25 Attending physician on admission: Joe Lake Chief Complaint: Malaise and fever 69-year-old female with past medical history significant for CKD, CHF, AFib, group B streptococcal bacteremia, anemia, HLD, HTN, RA who presented to the hospital for generalized weakness. Patient states that yesterday she began feeling unwell with subjective fevers, went home to rest, and was in the toilet for about 4 hours unable to get herself up. Patient then crawled herself to the room, after could not help her called 911. Patient denies any chest pain, shortness of breath, dysuria, nausea or vomiting. In the ED patient febrile, with labs showing WBC of 27.1, potassium 3.0, creatinine 1.4 Review of Systems Review of Systems: 14 point ROS obtained, negative except as stated above [facility] Medical History CKD stage 3b, GFR 30-44 ml/min Diarrhea Congestive heart failure Atrial fibrillation Septic shock Group B streptococcal bacteriuria IBS (irritable bowel syndrome) History of cellulitis Elevated cholesterol HTN (hypertension) PONV (postoperative nausea and vomiting) Colon cancer screening Eczema DVT (deep venous thrombosis) Cough Primary osteoarthritis, right hand Primary osteoarthritis, left hand Gout Polymyositis Family History Mother No problems noted. Father No problems noted. Surgical History Hx of shoulder surgery (11/22/23) History of back surgery (~2019) Hx of endoscopy H/O colonoscopy (~02/11/19) Social History Housing: House Are you a primary customer care team coach to a significant other at home: No Do you presently have visiting nurse or other home services: No Alcohol intake: never Patient Tobacco Use Status: Never used Tobacco Smoked in Last 30 Days: No e-Cigarette/Vaping Use: Never Used Use of substances other than those prescribed or required for medical reasons: No Advance Directives: No Advance Directives Information Provided: No Do you have a plan to hurt others: No Plan Nutrition Risks: No Nutritional Risk service: No Current occupational status: employed 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 Cognitive needs: No Hearing needs: No Vision needs: Yes (rx glasses) Meds Allergies Allergy/AdvReac Type Severity Reaction Status Date / Time hydroxychloroquine Allergy Severe Rash Verified 07/19/25 06:02 (Plaquenil) codeine (Codeine) Allergy Intermediate NAUSEA & Verified 07/19/25 06:02 VOMITING methotrexate Allergy Intermediate Diarrhea Verified 07/19/25 06:02 oxycodone Allergy Intermediate dizziness, Verified 07/19/25 06:02 nausea, vomiting tramadol Allergy Intermediate Diarrhea Verified 07/19/25 06:02 metronidazole Allergy Unknown Vomiting Verified 07/19/25 06:02 hydromorphone (From Dilaudid) AdvReac Vomiting Verified 07/19/25 06:02 Active Medications: Current Medications Acetaminophen (Acetaminophen 325 Mg Tablet) 650 mg PO Q6H PRN PRN Reason: Pain, Mild 1-3,fever,headache Calcium Carbonate (Calcium Carbonate 750 Mg Tab.Chew) 750 mg PO Q4H PRN PRN Reason: Heartburn Lactated Ringer's (Lr) 1,000 mls @ 100 mls/hr IVCONT .Q10H GOOD Piperacillin Sod/Tazobactam (Sod 4.5 gm/ Sodium Chloride) 100 mls @ 200 mls/hr IV Q8H GOOD Lactated Ringer's (Lr) 1,000 mls @ 1,000 mls/hr IVCONT .Q1H STA Stop: 07/19/25 11:54 Magnesium Hydroxide (Milk Of Magnesia 30 Ml Oral.Susp) 30 ml PO DAILY PRN PRN Reason: Constipation Melatonin (Melatonin 3 Mg Tablet) 6 mg PO BEDTIME PRN PRN Reason: Insomnia Ondansetron HCl (Ondansetron Hcl 4 Mg/2 Ml Vial) 4 mg IVPUSH Q8H PRN PRN Reason: Nausea and Vomiting Pharmacy Consult (Consult Rx Vancomycin Dosing) 1 each MISCELLANE DAILY PRN PRN Reason: Consult order Sodium Chloride (0.9 % Sodium Chloride Flush 3 Ml Syringe) 3 ml IVFLUSH QSHIFT [facility] Home Medications ?Medication ?Instructions ?Recorded ?Confirmed ?Last Taken ?Type acetaminophen 650 mg 650 mg PO Q8H PRN Pain 07/21/20 07/09/25 Unknown History tablet,extended release vitamin B complex (B 1 tab PO DAILY 07/21/20 07/09/25 Unknown History Complex-Vitamin B12 tablet) allopurinol 100 mg tablet 100 mg PO DAILY 01/18/22 07/09/25 Unknown History Vitamin D3 2,000 units PO DAILY 09/30/23 07/09/25 Unknown History apixaban 5 mg tablet (Eliquis) 5 mg PO BID 01/26/25 07/09/25 Unknown History dapagliflozin propanediol 10 mg 10 mg PO DAILY 02/25/25 07/09/25 Unknown History tablet (Farxiga) ferrous sulfate 325 mg (65 mg 325 mg PO DAILY 06/22/25 07/09/25 Unknown History iron) tablet potassium chloride 20 mEq 20 meq PO DAILY 06/22/25 07/09/25 Unknown History tablet,extended release metoprolol succinate 100 mg 100 mg PO DAILY 07/19/25 07/19/25 Unknown History tablet,extended release 24 hr Physical Exam Vital Signs and Narrative: Vital Signs: Last Vital Signs Temp 101.5 F H 07/19/25 10:30 Pulse 77 07/19/25 10:30 Resp 20 07/19/25 10:30 BP 103/51 L 07/19/25 10:30 Pulse Ox 96 07/19/25 10:30 O2 Del Method Room Air 07/19/25 10:30 BMI result Body Mass Index 31.4 General: AxOx3, ill appearing Head: AT/NC ENT: Moist mucous membranes Neck: supple CVS; RRR, S1 S2 normal Lungs: Clear bilateral breath sounds, no wheezes or crackles Abd: Soft non tender, non distended Ext: calf tenderness MSK: moving all 4 limbs Skin: BLE edema Psych: Cooperative with exam Neurology: no focal deficit Results Labs 07/19/25 06:12 07/19/25 06:12 Labs: Laboratory Results - last 24 hr 07/19/25 07/19/25 07/19/25 06:12 08:40 10:10 MCV 94.8 MCH 30.9 MCHC 32.6 RDW 15.1 Plt Count 210 MPV 10.5 Immature Gran % (Auto) 1.3 H Neut % (Auto) 91.5 H Lymph % (Auto) 1.6 L Desha % (Auto) 5.2 Eos % (Auto) 0.0 Baso % (Auto) 0.4 Lymph # (Auto) 0.4 L Desha # (Auto) 1.4 H Eos # (Auto) 0.0 Baso # (Auto) 0.1 Abs Immat Gran (auto) 0.34 H Absolute Neuts (auto) 24.8 H Absolute Nucleated RBC 0.000 Nucleated RBC % (auto) 0.0 Smear Tech's Comments VERIFIED Anion Gap 19 Estim Creat Clear Calc 36.0 Estimated GFR 37 Random Glucose 148 H Lactic Acid 3.1 H* Lactic Acid F/U @ 2Hr 3.7 H* Calcium 10.3 H Magnesium 1.6 Total Bilirubin 1.5 H Direct Bilirubin 0.4 AST 85 H ALT 24 Alkaline Phosphatase 110 Total Creatine Kinase 2194 H Troponin I High Sens 8337.7 H* D C-Reactive Protein 9.88 H Total Protein 7.7 Albumin 4.6 Lipase 6 L Procalcitonin 12.21 Urine Color Dark Yellow Urine Appearance Cloudy Urine pH 5.5 Ur Specific [place] 1.020 Urine Protein 30 (1+) H Urine Glucose (UA) 500 H Urine Ketones Negative Urine Blood Small (1+) H Urine Nitrite Negative Ur Leukocyte Esterase Small (1+) H Urine RBC 0-2 Urine WBC 0-5 Ur Squamous Epith Cells 3-5 Urine Bacteria 2+ Hyaline Casts 3-5 Influenza Type A (PCR) NEGATIVE Influenza Type B (PCR) NEGATIVE RSV RNA Qual (PCR) NEGATIVE SARS-CoV-2 RNA (RT-PCR) NEGATIVE Assessment and Plan (1) Severe sepsis with lactic acidosis: Status: Acute (2) Type 2 myocardial infarction due to shock: Status: Acute (3) Atrial fibrillation: Qualifiers: Atrial fibrillation type: paroxysmal Qualified Code(s): I48.0 - Paroxysmal atrial fibrillation Status: Acute (4) JÚNIOR (acute kidney injury): Status: Acute (5) Acute hypokalemia: Status: Acute Plan Assessment: 69-year-old female who presented to the hospital complaining of generalized malaise, found to have severe sepsis with lactic acidosis, started on broad-spectrum antibiotics. Severe sepsis with lactic acidosis Leukocytosis -labs and imaging reviewed, awaiting blood cultures and urine cultures -status post sepsis bolus given in the ED, we will continue with IV fluids at 100 mL/hour -status post ceftriaxone given in ED, we will initiate broad-spectrum antibiotics of vancomycin and Zosyn, we will tailor based on cultures -monitor BP with goal map greater than 65 -lower extremity ultrasound ordered to rule out DVT Suspect type 2 MN -troponin 8337 -TTE ordered to rule out takotsubo cardiomyopathy -telemetry placed -cardiology consulted by the ED -monitor for any signs of chest pain, shortness of breath JÚNIOR,, likely multifactorial in the setting of prerenal azotemia and rhabdomyolysis Rhabdomyolysis -creatinine 1.4, CK 2194 -UA reviewed -we will continue with LR at 100 mL, status post sepsis bolus given Atrial fibrillation -we will continue with the walk, this time we will hold off on beta blockers in the setting of hypotension requiring IV fluids Elevated T bilirubin -could be secondary to decreased perfusion, ultrasound ordered to rule out cholecystitis, choledocholithiasis Hypokalemia -status post p.o. potassium given, we will continue with LR at this time FEN: LR, replete as needed, cardiac GI PPX: Protonix DVT PPX: Eliquis and SCDs Code status: Full code Disposition: All questions and concerns with the patient were answered to satisfaction. All pertinent clinical documents, images and labs were reviewed. DISCLAIMER: This document was created using voice recognition software. Any mistakes in the prescription are unintentional. An attempt was made to focus for accuracy, but to expedite availability, some errors may persist. Please contact with any need for correction or further clarification Total time managing care of this patient today: 75 minutes. Quality Stroke Does the patient have a stroke diagnosis?: No VTE Prior VTE?: No VTE Risk Level:: Medical - moderate - high VTE Device Contraindication: N/A - Device Ordered VTE Drug Contraindication: N/A - Med Ordered
--- NOTE | 2025-07-19 11:25 | PHA.MEDREC ---
Addendum entered by Hitesh Mims, PharmD 07/19/25 11:58: Med rec checked by [facility] Original Note: Pharmacy Consult ? Medication Reconciliation Pharmacy has completed the medication reconciliation. patient was able to confirm all of her medications. Patient states she takes Metoprolol succ 50 mg , even though last fill history was for Metoprolol succ 100 mg, Furosemide 80 mg daily. Patient last had her medications yesterday.
[2025-07-19] MEDS: Lactated Ringers 1,000 ML 1000 ML IVCONT (11:44)
--- NOTE | 2025-07-19 12:00 | CA_ITS ---
Transthoracic Echocardiogram Patient (Last, First, Middle): Karol Frias, Gender: Female Date of : 1955 Age: 69 Procedure Date: 07/19/2025 Procedure Type: Transthoracic Echocardiogram Location: ER Height: 157.48 cm Weight: 77.57 kg BSA: 1.79 m2 Heart Rate: 74 bpm BP: 101 / 50 mmHg Shovel Oiler: MYRTLE Referring MD: Fozia Sharma DO Supervisor Grinding: Fito Juarez MD Symptoms: Elevated troponin Study Quality: Fair but adequate ECG Rhythm: Sinus Conclusions: - 1. Normal LV ejection fraction 55-60% with underlying regional wall motion abnormality consistent with coronary disease 2. Eidg-ip-fvkzzjyd aortic stenosis 3. Normal RV systolic pressure 4. No gross pericardial effusion Findings Left Ventricle Normal left ventricular size, thickness, and systolic function. The visually estimated ejection fraction is between 55-60%. Spectral Doppler is indicative of a normal filling pattern. Wall Motion Rest Echo Findings The inferoseptal wall, the mid inferior, and basal inferolateral segments are hypokinetic. The basal inferior segment is akinetic. All other scored wall segments showed normal motion. Right Ventricle Normal right ventricular cavity size and systolic function. Atria Both atria are normal in size. There is no evidence of interatrial shunt. Aortic Valve The aortic valve was not well visualized. There is moderate calcification of the aortic valve. There is mild to moderate aortic valve stenosis. The peak aortic gradient is 26 mmHg.The mean gradient is 15 mmHg. The aortic valve area is 1.42 cm2. There is no aortic valve regurgitation. Mitral Valve There is mild anterior mitral leaflet thickening. There is moderate mitral annular calcification. There is no mitral valve regurgitation. There is no mitral valve stenosis. Pulmonic Valve The pulmonic valve was not well visualized. Tricuspid Valve Likely normal tricuspid valve structure and function. There is trace tricuspid valve regurgitation. The right ventricular systolic pressure is normal. The right ventricular systolic pressure is 18 mmHg. Normal right atrial pressure. There is no evidence of pulmonary hypertension. Great Vessels All visible segments of the aorta are normal in size. The pulmonary artery was not well visualized. There is no dilatation of the ascending aorta measuring 3.00 cm. Venous The inferior vena cava is normal in size and collapses greater than 50% with inspiration. Pericardium/Pleural There is no evidence of pericardial effusion. Prior Study Comparison No prior study available for comparison. Measurements 2D Linear Measurements IVSd: 0.80 0.6-0.9/0.6-1.0 cm LVIDd: 5.21 3.9-5.3/4.2-5.9 cm LVIDd Index: 2.91 2.4-3.2/2.2-3.1 cm/m2 LVIDs: 3.66 2.0-3.6 cm LVPWd: 0.94 0.7-1.1 cm LA Diam: 3.10 2.7-3.8/3.0-4.0 cm LAIDs Index: 1.73 1.5-2.3 cm/m2 LV Mass: 202.20 67-162/88-224 g LV Mass Index: 112.96 43-95/49-115 g/m2 LVOT Diam: 2.10 3.0+(-)1.3 cm 2D Systolic Function EF 4C: 58.80 >55% EF 2C: 58.00 >55% EF BiP: 57.40 >55% Mitral Valve MV Pk E: 0.85 MV PK A: 0.75 MV Decel Time: 324.00 E/A: 1.10 E'Lateral: 11.30 E'Medial: 7.83 E/E' Med: 10.90 E/E' Lat: 7.50 PHT: 95.00 MVA PHT: 2.32 Decel Ashley: 2.63 Aortic Valve AoV Pk Fer: 2.56 AoV Mn Fer: 1.80 AoV VTI: 0.54 AoV Pk Grad: 26.00 Aov Mn Grad: 15.00 CATHY Cont.VTI: 1.42 LVOT LVOT Pk Fer: 1.01 LVOT Mn Fer: 0.77 LVOT VTI: 0.22 LVOT Pk Grad: 4.00 LVOT Mn Grad: 3.00 LVOT Diam: 2.10 LVOT Area: 3.46 Diastolic Function MV Pk E: 0.85 MV Pk A: 0.75 E/A: 1.10 E'Medial: 7.83 E/E' Med: 10.90 E' Laterial: 11.30 E/E' Lat: 7.50 Right Ventricle TAPSE (mm): 22.20 TVS' Fer: 11.50 Tricuspid Valve TR Pk Fer: 1.93 TR Pk Grad: 15.00 RA Press: 3.00 RVSP: 18.00 Great Vessels Aorta Sinus of Valsalva: 2.90 2.0-3.5 cm Ao Asc: 3.00 2.1-3.4 cm Ao Arch: 2.90 Pulmonary Veins Pulm Vein S/D 1.30 Pulmonary Valve PV Pk Fer: 1.75 Peak PV Grad: 12.00 Updated in Other Vendor System with Status of Final Fito Juarez MD electronically signed on 07/19/2025 3:56:35 PM with status of Final
[2025-07-19] MEDS: Potassium Chloride Packet 20 MEQ PACKET 40 MEQ PO (12:01)
[2025-07-19 12:30] LABS: ~Lactic Acid-LAB USE ONLY 3.8 mmol/L (0.5-2.0)
[2025-07-19 17:32] LABS: Chlamydia pneumoniae PCR Not Detected (Not Detect.); Coronavirus 229E PCR Not Detected (Not Detect.); Coronavirus HKU1 PCR Not Detected (Not Detect.); Coronavirus NL63 PCR Not Detected (Not Detect.); Coronavirus OC43 PCR Not Detected (Not Detect.); Influenza A H1 PCR Not Detected (Not Detect.); Influenza A H1-2009 PCR Not Detected (Not Detect.); Influenza A H3 PCR Not Detected (Not Detect.); RSV PCR Not Detected (Not Detect.); Rhino/Enterovirus PCR Not Detected (Not Detect.); SARS-CoV-2 PCR Not Detected (Not Detect.)
--- NOTE | 2025-07-19 19:20 | HO.NURTONUR ---
69 y/o F, A/ox3, Full Code Admit: Sepsis Came from home for increased weakness/dizzines- per ems, she was found on the floor. Sepsis workup in the ED- rectal temp 102.7 on arrival, hx of severe sepsis with hospital stay. Labs: WBC 27.1, Potassium 3.0, BUN 33, Creatinine 1.42, Lactic 3.1 --> 3.7 --> 3.8, CK 2194, Trop 8337.7 --> repeat pending, CRP 9.88, resp pathogen panel negative, UA positive UTI Reports: EKG- nsr with PACs, CXR- negative, US DVT- negative 20g IV Left AC and 22g IV Right AC - she got IV tylenol x2, total of 2,300ml NS sepsis fluids, IV abx- vanco, She had a 102.7 rectal temp when she came in--> temperature came down with IV Tylenol then went back up to around 102, gave another dose of IV tylenol and her temps have stayed below 100 rectally Her BPs were soft throughout the day, fluctuating between 90s/50s and then 110s/50s. She is ambulatory to the commode with assistance, she did have a few loose stools throughout the day.
--- NOTE | 2025-07-19 19:35 | PC.NURSE ---
notified of patient troponin 27504 per lab
[2025-07-20] VITALS (11 sets, daily range): BP systolic 98–134; BP diastolic 51–75; PULSE 70–173; RESP 14–18; TEMP 36.3–37.2; O2SAT 94–97; BMI 32.3
--- NOTE | 2025-07-20 | ECG_ITS ---
Test Reason : RHYSTM CHANGE Blood Pressure : */* mmHG Vent. Rate : 161 BPM Atrial Rate : * BPM P-R Int : * ms QRS Dur : 68 ms QT Int : 268 ms P-R-T Axes : * 8 16 degrees QTcB Int : 438 ms Atrial fibrillation with rapid ventricular response Low voltage QRS Cannot rule out Anterior infarct (cited on or before 19-Jul-2025) Abnormal ECG When compared with ECG of 19-Jul-2025 15:56, Atrial fibrillation has replaced Sinus rhythm Vent. rate has increased by 89 bpm Non-specific change in ST segment in Inferior leads ST now depressed in Anterior leads Referred By: Fozia Sharma Electronically Signed By: NIKO DEY MD
--- NOTE | 2025-07-20 00:06 | MHC.EDTECH ---
This tech took over care of pt at 2300,rounds and vitals completed, pt was placed in hospital bed for comfort, high risk precautions placed, bed alarm on for safety.call farias in reach
--- NOTE | 2025-07-20 00:15 | MHC.EDTECH ---
Patient placed in hospital bed for comfort,bed alarm on for safety,call farias in reach
--- NOTE | 2025-07-20 03:55 | PC.NURSE ---
1 of 2 BC gram + cocci and clusters. Dr Tee was made aware and no new orders at this time
[2025-07-20 04:29] LABS: Hematocrit 35.5 % (37.0-47.0); Hemoglobin 11.5 g/dl (12.0-16.0); Mean Corpuscular HGB Conc 32.4 g/dl (31.0-35.0); Mean Corpuscular Hemoglobin 31.6 pg (27.0-33.0); Mean Corpuscular Volume 97.5 fL (80.0-98.0); NRBC Abs Auto 0.000 X10*3/uL (0.0-0.012); NRBC Pct Auto 0.0 /100WBC (0.0-0.2); Platelet Count 140 X10*3/uL (160-400); Red Blood Count 3.64 X10*6/uL (4.20-5.50); White Blood Count 11.5 X10*3/uL (4.8-10.8)
[2025-07-20 04:42] LABS: Anion Gap 15 (12-20); Blood Urea Nitrogen 32 mg/dL (9-16); Calcium 9.1 mg/dL (8.4-10.2); Carbon Dioxide 22 mmol/L (22-29); Chloride 109 mmol/L (96-108); Creatinine Clr Calc Pharmacy 42.3; Estimated Glomerular Filt Rate 44; Magnesium 1.5 mg/dL (1.6-2.6); Potassium 3.5 mmol/L (3.3-5.1); Sodium 142 mmol/L (135-145)
--- NOTE | 2025-07-20 04:59 | MHC.EDTECH ---
Patient got up to the commode with a 1 assist, with a slow steady gait, patient urinated a large amount and had a small formed stool brown in color, benjie-care given. Patient is back in bed, on her right side,bed alarm on for safety,call farias in reach
[2025-07-20 05:03] LABS: Thyroid Stimulating Hormone 1.52 uIU/mL (0.32-4.0)
--- NOTE | 2025-07-20 08:26 | PC.NURSE ---
Awaiting phelb to draw initial coags to initiate Heparin gtt Pt denies CP at this time. Attempting additional IV access
[2025-07-20 09:01] LABS: INTERNATIONAL NORM RATIO 1.2 (0.9-1.1); Prothrombin Time 14.9 SEC (11.2-13.5)
[2025-07-20 09:03] LABS: PTT Heparin Drip 30.8 SEC (53-77.9)
[2025-07-20 09:04] LABS: Hematocrit 39.3 % (37.0-47.0); Hemoglobin 12.7 g/dl (12.0-16.0); Mean Corpuscular HGB Conc 32.3 g/dl (31.0-35.0); Mean Corpuscular Hemoglobin 31.6 pg (27.0-33.0); Mean Corpuscular Volume 97.8 fL (80.0-98.0); NRBC Abs Auto 0.000 X10*3/uL (0.0-0.012); NRBC Pct Auto 0.0 /100WBC (0.0-0.2); Platelet Count 147 X10*3/uL (160-400); Red Blood Count 4.02 X10*6/uL (4.20-5.50); White Blood Count 11.0 X10*3/uL (4.8-10.8)
--- NOTE | 2025-07-20 09:05 | PC.NURSE ---
Addendum entered by Juliana Fraser RN 07/20/25 09:10: awaiting Vanco from pharmacy Original Note: Dr Juarez to bedside, awaiting confirmation to initiate Heparin gtt after consulting with hospitalist. Second IV placed to left FA Pt continues to decline CP, SOB, dizziness or weakness at this time. Skin pwd. NSR on tele. Breathing easy. Seen by PT Pharmacy notified of med rec needed.
[2025-07-20] MEDS: 0.9 % Sodium Chloride Flush 3 ML SYRINGE IVFLUSH ×3 (09:09→19:53)
--- NOTE | 2025-07-20 10:10 | P.CDIM_ITS ---
PROVIDER RESPONSE TEXT: To clarify, the appropriate diagnosis supported by the clinical indicators: Acute QUERY TEXT: PHYSICIAN'S DOCUMENTATION REQUEST Date of Query: 07/20/2025 07:27 AM EST Patient Name: Karol Frias Admit Date: 07/19/2025 Dear Joe Lake MD, A review of the medical record indicates additional documentation may be needed. Please review below and update the documentation accordingly. Clinical Indicators: H&P 07/19/25 - Severe sepsis with lactic acidosis LA 3.7 3.8 H Clarify which of the following accurately represents the acuity of the Lactic acidosis: Possible options might include: Acute Chronic Other specified Other (explain) Clinically unable to determine (explain) Thank you, Brooke Lynn, CCS, CDIS Use of terms such as suspected, likely, concern for, or probable (associated with a specific diagnosis that is being evaluated, monitored, or treated as if it exists) are acceptable and can be coded in the inpatient setting, when documented at the time of discharge. Please use your independent medical judgment in providing your response. THIS QUERY IS PART OF THE PERMANENT MEDICAL RECORD
--- NOTE | 2025-07-20 10:13 | PM.CNCAR ---
History of Present Illness History of Present Illness Date of Service: 07/20/25 Requesting physician: Joe Lake Consult reason: myocardial infarction Chief complaint: SIRS, elevated trops Narrative: I was consulted to see Karol in cardiology consultation today for elevated troponins consistent with myocardial infarction. Patient is 69 year female who came to the hospital with fever, chills, weakness and inability to get up from her commode. She says she is in his last few months had multiple admissions similar to this. Last admitted in January here when she was transferred to [facility] with severe sepsis treated with antibiotics and subsequently developed myocardial infarction and had cardiac catheterization at [facility] which had shown no significant obstructive coronary artery disease and suspected to have takotsubo cardiomyopathy. She had mildly depressed LV ejection fraction at that time and follow-up echocardiogram at [facility] recently had shown normalized LV ejection fraction but persistent inferior wall motion abnormality. She also has heart failure preserved ejection fraction currently on high dose loop diuretics along with SGLT2 inhibitor therapy for unclear reason possibly hypertensive heart disease. She also has paroxysmal atrial fibrillation for which she is on Eliquis therapy. She does have underlying rheumatologic condition with psoriasis for which she is on immunosuppressive therapy. She came with the symptoms and noticed to have large warm patch on her left thigh. She has been treated with antibiotics. Yesterday when she came to the hospital she was borderline hypotensive along with severe sepsis syndrome along with elevated lactic acid. She was given fluid resuscitation since yesterday has done well on antibiotics and fluid resuscitation with improvement of her blood pressure. Her blood cultures are showing Gram-positive cocci. Full identification is pending. Her initial troponin was a 1300 and follow-up troponin was 12,000 consistent with myocardial infarction. She had no chest pain during the entire hospitalization. She has no shortness of breath. EKGs yesterday shows normal sinus rhythm with low-voltage QRS with poor R-wave progression otherwise no ST-T wave abnormality. Review of Systems Constitutional: Constitutional: Reports chills, Reports fever(s), Reports lethargy, Reports malaise and Reports weakness Eyes: Eyes: Reports no additional eye complaints Cardiovascular: Cardiovascular: Reports no additional cardiovascular complaints Respiratory: Respiratory: Reports no additional respiratory complaints Gastrointestinal: Gastrointestinal: Reports no additional gastrointestinal complaints Genitourinary: Genitourinary: Reports urinary urgency Musculoskeletal: Musculoskeletal: Reports no additional musculoskeletal complaints Integumentary/Breasts: Skin/Breast: Reports other (Redness and warmth on the left thigh) Neurologic: Reports system reviewed and no additional complaints, except as documented and Reports weakness Psychiatric: Psychiatric: Reports no additional psychiatric complaints Endocrine: Endocrine: Reports no additional endocrine complaints Hematologic/Lymphatic: Hematologic/Lymphatic: Reports no additional hematologic/lymphatic complaints [facility] Past Medical History Medical History CKD stage 3b, GFR 30-44 ml/min Diarrhea Congestive heart failure Atrial fibrillation Septic shock Group B streptococcal bacteriuria IBS (irritable bowel syndrome) History of cellulitis Elevated cholesterol HTN (hypertension) PONV (postoperative nausea and vomiting) Colon cancer screening Eczema DVT (deep venous thrombosis) Cough Primary osteoarthritis, right hand Primary osteoarthritis, left hand Gout Polymyositis Family History Family History Mother No problems noted. Father No problems noted. Surgical History Surgical History Hx of shoulder surgery (11/22/23) History of back surgery (~2019) Hx of endoscopy H/O colonoscopy (~02/11/19) Social History Social History Household Members: Spouse Housing: House Are you a primary physician locums urgent care to a significant other at home: No Do you presently have visiting nurse or other home services: No Alcohol intake: never Patient Tobacco Use Status: Never used Tobacco Smoked in Last 30 Days: No e-Cigarette/Vaping Use: Never Used Use of substances other than those prescribed or required for medical reasons: No Advance Directives: No Advance Directives Information Provided: No Do you have a plan to hurt others: No Plan Recently lost weight without trying: No Nutrition Risks: No Nutritional Risk Patient : No : No Poor oral hygiene: No service: No Current occupational status: employed 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 Cognitive needs: No Hearing needs: No Vision needs: Yes (rx glasses) Meds Allergies Allergy/AdvReac Type Severity Reaction Status Date / Time hydroxychloroquine Allergy Severe Rash Verified 07/19/25 06:02 (Plaquenil) codeine (Codeine) Allergy Intermediate NAUSEA & Verified 07/19/25 06:02 VOMITING methotrexate Allergy Intermediate Diarrhea Verified 07/19/25 06:02 oxycodone Allergy Intermediate dizziness, Verified 07/19/25 06:02 nausea, vomiting tramadol Allergy Intermediate Diarrhea Verified 07/19/25 06:02 metronidazole Allergy Unknown Vomiting Verified 07/19/25 06:02 hydromorphone (From Dilaudid) AdvReac Vomiting Verified 07/19/25 06:02 Active Medications: Current Medications Apixaban (Apixaban 5 Mg Tablet) 5 mg PO BID [facility] Last Admin: 07/20/25 10:04 Dose: 5 mg Calcium Carbonate (Calcium Carbonate 750 Mg Tab.Chew) 750 mg PO Q4H PRN PRN Reason: Heartburn Lactated Ringer's (Lr) 1,000 mls @ 100 mls/hr IVCONT .Q10H [facility] Last Admin: 07/20/25 06:23 Dose: Not Given Piperacillin Sod/Tazobactam (Sod 4.5 gm/ Sodium Chloride) 100 mls @ 200 mls/hr IV Q8H [facility] Last Infusion: 07/20/25 05:06 Dose: Infused Acetaminophen (Ofirmev) 1,000 mg in 100 mls @ 400 mls/hr IV Q6H PRN PRN Reason: Pain, Mild 1-3,fever,headache Last Infusion: 07/19/25 12:26 Dose: Infused Vancomycin HCl 500 mg/ Sodium (Chloride) 110 mls @ 110 mls/hr IV Q12H [facility] Last Admin: 07/20/25 09:16 Dose: 110 mls/hr Magnesium Hydroxide (Milk Of Magnesia 30 Ml Oral.Susp) 30 ml PO DAILY PRN PRN Reason: Constipation Melatonin (Melatonin 3 Mg Tablet) 6 mg PO BEDTIME PRN PRN Reason: Insomnia Ondansetron HCl (Ondansetron Hcl 4 Mg/2 Ml Vial) 4 mg IVPUSH Q8H PRN PRN Reason: Nausea and Vomiting Pantoprazole Sodium (Pantoprazole Sodium 40 Mg/10 Ml Vial) 40 mg IVPUSH DAILY@0630 [facility] Last Admin: 07/20/25 06:16 Dose: 40 mg Pharmacy Consult (Consult Rx Vancomycin Dosing) 1 each MISCELLANE DAILY PRN PRN Reason: Consult order Sodium Chloride (0.9 % Sodium Chloride Flush 3 Ml Syringe) 3 ml IVFLUSH QSHIFT [facility] Last Admin: 07/20/25 09:09 Dose: 3 ml Home Medications ?Medication ?Instructions ?Recorded ?Confirmed ?Last Taken ?Type acetaminophen 650 mg 650 mg PO Q8H PRN Pain 07/21/20 07/19/25 Unknown History tablet,extended release allopurinol 100 mg tablet 100 mg PO DAILY 01/18/22 07/19/25 07/18/25 History apixaban 5 mg tablet (Eliquis) 5 mg PO BID 01/26/25 07/19/25 07/18/25 History dapagliflozin propanediol 10 mg 10 mg PO DAILY 02/25/25 07/19/25 07/18/25 History tablet (Farxiga) ferrous sulfate 325 mg (65 mg 325 mg PO DAILY 06/22/25 07/19/25 07/18/25 History iron) tablet potassium chloride 20 mEq 20 meq PO DAILY 06/22/25 07/19/25 07/18/25 History tablet,extended release cholecalciferol (vitamin D3) 50 50 mcg PO DAILY 07/19/25 07/19/25 07/18/25 History mcg (2,000 unit) capsule (Vitamin D3) furosemide 40 mg tablet 80 mg PO DAILY 07/19/25 07/19/25 07/18/25 History metoprolol succinate 50 mg 50 mg PO DAILY 07/19/25 07/19/25 07/18/25 History tablet,extended release 24 hr pantoprazole 40 mg tablet,delayed 40 mg PO DAILY@0630 07/19/25 07/19/25 07/18/25 History release vitamin B complex 1 tab PO DAILY 07/19/25 07/19/25 07/18/25 History Physical Exam Vital Signs: Vital Signs: Last Vital Signs Temp 98.9 F 07/20/25 09:20 Pulse 89 07/20/25 09:20 Resp 17 07/20/25 09:20 BP 109/56 L 07/20/25 04:00 Pulse Ox 95 07/20/25 09:20 O2 Del Method Room Air 07/20/25 09:20 BMI result Body Mass Index 32.3 Const: General: cooperative, comfortable, no acute distress, alert and awake Nutritional Appearance: obese Orientation/consciousness: patient oriented x3 HEENT: Head: Yes normocephalic and Yes atraumatic Neck: Neck: Yes trachea midline, Yes supple and Yes no JVD Resp: Effort & Inspection: normal respiratory effort Auscultation: clear to auscultation bilaterally Cardio: Jugular venous distension: no JVD Rate: regular rate Rhythm: regular rhythm Heart sounds: S1 normal heart sound present, S2 normal heart sound present, no click, no gallops and Murmur heart sound present systolic GI: Auscultation: normal bowel sounds Skin: General skin exam: no rashes or lesions noted Neuro: General: patient oriented x3 and no focal motor deficits Extrem: General: Yes no clubbing, cyanosis or edema Psych: Appearance: grossly normal Objective Labs and Meds 07/20/25 08:37 07/20/25 04:12 Lab results: Laboratory Results - last 24 hr 07/19/25 07/19/25 07/19/25 10:10 12:03 13:12 WBC RBC Hgb Hct MCV MCH MCHC RDW Plt Count MPV Absolute Nucleated RBC Nucleated RBC % (auto) PT INR aPTT Heparin Protocol Sodium Potassium Chloride Carbon Dioxide Anion Gap BUN Creatinine Estim Creat Clear Calc Estimated GFR Random Glucose Lactic Acid F/U @ 4Hr 3.8 H* Calcium Magnesium Total Creatine Kinase Troponin I High Sens TSH Urine Color Dark Yellow Urine Appearance Cloudy Urine pH 5.5 Ur Specific Gipsy 1.020 Urine Protein 30 (1+) H Urine Glucose (UA) 500 H Urine Ketones Negative Urine Blood Small (1+) H Urine Nitrite Negative Ur Leukocyte Esterase Small (1+) H Urine RBC 0-2 Urine WBC 0-5 Ur Squamous Epith Cells 3-5 Urine Bacteria 2+ Hyaline Casts 3-5 Respiratory Panel Hoang See Note Adenovirus (Rapid PCR) Not Detected B.pert (TEM-PCR) Not Detected B.parapertussis DNA PCR Not Detected C. pneumoniae DNA (PCR) Not Detected Coronavirus OC43 (PCR) Not Detected Coronavirus HKU1 (PCR) Not Detected Coronavirus 229E (PCR) Not Detected Coronavirus NL63 (PCR) Not Detected Human Metapneumovir PCR Not Detected Influenza A (RT-PCR) Not Detected Influenza A (H1) PCR Not Detected Influ A (H1/09) PCR Not Detected Influenza A (H3) PCR Not Detected Influenza B (RT-PCR) Not Detected M. pneumoniae (PCR) Not Detected Parainfluenza 1 (PCR) Not Detected Parainfluenza 2 (PCR) Not Detected Parainfluenza 3 (PCR) Not Detected Parainfluenza 4 (PCR) Not Detected RSV (PCR) Not Detected Entero/Rhino (PCR) Not Detected SARS-CoV-2 RNA (RT-PCR) Not Detected 07/19/25 07/20/25 07/20/25 18:40 04:12 08:37 WBC 11.5 H 11.0 H RBC 3.64 L D 4.02 L Hgb 11.5 L 12.7 Hct 35.5 L 39.3 MCV 97.5 97.8 MCH 31.6 31.6 MCHC 32.4 32.3 RDW 15.3 15.1 Plt Count 140 L D 147 L MPV 10.5 11.0 Absolute Nucleated RBC 0.000 0.000 Nucleated RBC % (auto) 0.0 0.0 PT 14.9 H INR 1.2 H aPTT Heparin Protocol 30.8 L D Sodium 142 Potassium 3.5 Chloride 109 H Carbon Dioxide 22 Anion Gap 15 BUN 32 H Creatinine 1.21 Estim Creat Clear Calc 42.3 Estimated GFR 44 Random Glucose 81 Lactic Acid F/U @ 4Hr Calcium 9.1 D Magnesium 1.5 L Total Creatine Kinase 1179 H Troponin I High Sens 81950.6 H* TSH 1.52 Urine Color Urine Appearance Urine pH Ur Specific Gipsy Urine Protein Urine Glucose (UA) Urine Ketones Urine Blood Urine Nitrite Ur Leukocyte Esterase Urine RBC Urine WBC Ur Squamous Epith Cells Urine Bacteria Hyaline Casts Respiratory Panel Hoang Adenovirus (Rapid PCR) B.pert (TEM-PCR) B.parapertussis DNA PCR C. pneumoniae DNA (PCR) Coronavirus OC43 (PCR) Coronavirus HKU1 (PCR) Coronavirus 229E (PCR) Coronavirus NL63 (PCR) Human Metapneumovir PCR Influenza A (RT-PCR) Influenza A (H1) PCR Influ A (H1/09) PCR Influenza A (H3) PCR Influenza B (RT-PCR) M. pneumoniae (PCR) Parainfluenza 1 (PCR) Parainfluenza 2 (PCR) Parainfluenza 3 (PCR) Parainfluenza 4 (PCR) RSV (PCR) Entero/Rhino (PCR) SARS-CoV-2 RNA (RT-PCR) Imaging Radiologist's impression: Impressions Venous Duplex 07/19/25 16:35 IMPRESSION: No evidence of deep venous thrombosis involving the bilateral lower extremities. Electronically signed by: Alfredo Pack MD 07/19/2025 05:16 PM [facility] [place], [place] Assessment and Plan (1) Non-ST elevated myocardial infarction (non-STEMI): Status: Inactive Patient with non ST-elevation myocardial infarction of unclear etiology. She had similar presentation January and subsequently underwent cardiac catheterization which showed normal coronary arteries. Question was raised for possible takotsubo cardiomyopathy although she has regional wall motion abnormality. The regional wall motion abnormality does not suggest stress-induced or takotsubo cardiomyopathy. Embolic event as possible especially given her recurrent sepsis with Gram-positive cocci, endocarditis needs to be ruled out. Would suggest a ANUPAM to evaluate for any cardiac embolic source especially infective endocarditis which may require alternative treatment. For now given that lack of coronary disease by cardiac catheterization it is possible that we can just continue with Eliquis therapy at this point in time. Continue statins as well as beta-blockers if possible given her lowish blood pressure to reduce myocardial oxygen demand. Would start on metoprolol 12.5 mg q.6 hours. Keep her NPO past midnight. (2) Paroxysmal atrial fibrillation: Status: Acute Prior history of paroxysmal atrial fibrillation. Resume oral anticoagulation with Eliquis. Start low-dose metoprolol therapy. Continue aggressive management of underlying sepsis syndrome. Will follow with you Procedures Date of Service Date of Service: 07/20/25
--- NOTE | 2025-07-20 10:17 | MHC.CM.PN ---
Met with pt to review d/c planning: pt resides w/spouse who is able to assist her w/care needs including transportation. Pt has no services or DME and states she is independent w/all care needs. HCP verified and in EMR; IMM signed and in chart. MD Mccartney Po No additional services anticipated.
[2025-07-20] MEDS: Lactated Ringers 1,000 ML 100 ML IVCONT ×2 (11:00→12:30)
--- NOTE | 2025-07-20 11:29 | HO.ANESPROP2 ---
Documented by User: Carmel Jefferson NP 07/20/25 11:39 HPI - Anesthesia Eval Consult details Narrative: 69 yr old female for ANUPAM NSTEMI, seen [place] [facility] [place]/25: Patient with non ST-elevation myocardial infarction of unclear etiology. She had similar presentation January and subsequently underwent cardiac catheterization which showed normal coronary arteries. Question was raised for possible takotsubo cardiomyopathy although she has regional wall motion abnormality. The regional wall motion abnormality does not suggest stress-induced or takotsubo cardiomyopathy. Embolic event as possible especially given her recurrent sepsis with Gram-positive cocci, endocarditis needs to be ruled out. Would suggest a ANUPAM to evaluate for any cardiac embolic source especially infective endocarditis which may require alternative treatment H/O Afib: on eliquis; INR is 1.2 07/20/25 Anesthesia Pre-Procedure Meds Is the patient on any of the following meds?: SGLT2 Inhib PMFSH Active Problems Active Problems: All Active Problems Paroxysmal atrial fibrillation (Acute) Type 2 myocardial infarction due to shock (Acute) Severe sepsis with lactic acidosis (Acute) Elevated troponin (Acute) Rhabdomyolysis (Acute) Acute hypokalemia (Acute) Acidosis, lactic (Acute) Fever (Acute) Elevated WBC count (Acute) Sepsis (Acute) CKD stage 3b, GFR 30-44 ml/min (Acute) IBS (irritable bowel syndrome) (Acute) Diarrhea (Acute) Urinary incontinence (Acute) Rigors (Acute) Rheumatoid arthritis (Acute) Neuropathy (Acute) Congestive heart failure (Acute) Septic shock (Acute) Atrial fibrillation (Acute) Group B streptococcal bacteriuria (Acute) Anemia (Acute) Elevated cholesterol (Acute) HTN (hypertension) (Acute) Severe eczema (Acute) Psoriasis (Acute) Varicose veins of left lower extremity with inflammation (Acute) Varicose veins of right lower extremity with inflammation (Acute) Varicose veins of both lower extremities with inflammation (Acute) Edema (Acute) JÚNIOR (acute kidney injury) (Acute) Right shoulder pain (Acute) Impingement of right shoulder (Acute) Primary osteoarthritis, right hand (Acute) Primary osteoarthritis, left hand (Acute) Gout (Acute) Polymyositis (Acute) Past Medical History Medical History CKD stage 3b, GFR 30-44 ml/min Diarrhea Congestive heart failure Atrial fibrillation Septic shock Group B streptococcal bacteriuria IBS (irritable bowel syndrome) History of cellulitis Elevated cholesterol HTN (hypertension) PONV (postoperative nausea and vomiting) Colon cancer screening Eczema DVT (deep venous thrombosis) Cough Primary osteoarthritis, right hand Primary osteoarthritis, left hand Gout Polymyositis Family History Family History Mother No problems noted. Father No problems noted. 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 Cognitive needs: No Hearing needs: No Vision needs: Yes (rx glasses) Meds Allergies Allergy/AdvReac Type Severity Reaction Status Date / Time hydroxychloroquine Allergy Severe Rash Verified 07/19/25 06:02 (Plaquenil) codeine (Codeine) Allergy Intermediate NAUSEA & Verified 07/19/25 06:02 VOMITING methotrexate Allergy Intermediate Diarrhea Verified 07/19/25 06:02 oxycodone Allergy Intermediate dizziness, Verified 07/19/25 06:02 nausea, vomiting tramadol Allergy Intermediate Diarrhea Verified 07/19/25 06:02 metronidazole Allergy Unknown Vomiting Verified 07/19/25 06:02 hydromorphone (From Dilaudid) AdvReac Vomiting Verified 07/19/25 06:02 Active Medications: Current Medications Apixaban (Apixaban 5 Mg Tablet) 5 mg PO BID [facility] Last Admin: 07/20/25 10:04 Dose: 5 mg Calcium Carbonate (Calcium Carbonate 750 Mg Tab.Chew) 750 mg PO Q4H PRN PRN Reason: Heartburn Lactated Ringer's (Lr) 1,000 mls @ 100 mls/hr IVCONT .Q10H [facility] Last Admin: 07/20/25 06:23 Dose: Not Given Piperacillin Sod/Tazobactam (Sod 4.5 gm/ Sodium Chloride) 100 mls @ 200 mls/hr IV Q8H [facility] Last Infusion: 07/20/25 05:06 Dose: Infused Acetaminophen (Ofirmev) 1,000 mg in 100 mls @ 400 mls/hr IV Q6H PRN PRN Reason: Pain, Mild 1-3,fever,headache Last Infusion: 07/19/25 12:26 Dose: Infused Vancomycin HCl 500 mg/ Sodium (Chloride) 110 mls @ 110 mls/hr IV Q12H [facility] Last Infusion: 07/20/25 10:46 Dose: Infused Magnesium Hydroxide (Milk Of Magnesia 30 Ml Oral.Susp) 30 ml PO DAILY PRN PRN Reason: Constipation Melatonin (Melatonin 3 Mg Tablet) 6 mg PO BEDTIME PRN PRN Reason: Insomnia Ondansetron HCl (Ondansetron Hcl 4 Mg/2 Ml Vial) 4 mg IVPUSH Q8H PRN PRN Reason: Nausea and Vomiting Pantoprazole Sodium (Pantoprazole Sodium 40 Mg/10 Ml Vial) 40 mg IVPUSH DAILY@0630 [facility] Last Admin: 07/20/25 06:16 Dose: 40 mg Pharmacy Consult (Consult Rx Vancomycin Dosing) 1 each MISCELLANE DAILY PRN PRN Reason: Consult order Sodium Chloride (0.9 % Sodium Chloride Flush 3 Ml Syringe) 3 ml IVFLUSH QSHIFT [facility] Last Admin: 07/20/25 09:09 Dose: 3 ml Home Medications ?Medication ?Instructions ?Recorded ?Confirmed ?Last Taken ?Type acetaminophen 650 mg 650 mg PO Q8H PRN Pain 07/21/20 07/19/25 Unknown History tablet,extended release allopurinol 100 mg tablet 100 mg PO DAILY 01/18/22 07/19/25 07/18/25 History apixaban 5 mg tablet (Eliquis) 5 mg PO BID 01/26/25 07/19/25 07/18/25 History dapagliflozin propanediol 10 mg 10 mg PO DAILY 02/25/25 07/19/25 07/18/25 History tablet (Farxiga) ferrous sulfate 325 mg (65 mg 325 mg PO DAILY 06/22/25 07/19/25 07/18/25 History iron) tablet potassium chloride 20 mEq 20 meq PO DAILY 06/22/25 07/19/25 07/18/25 History tablet,extended release cholecalciferol (vitamin D3) 50 50 mcg PO DAILY 07/19/25 07/19/25 07/18/25 History mcg (2,000 unit) capsule (Vitamin D3) furosemide 40 mg tablet 80 mg PO DAILY 07/19/25 07/19/25 07/18/25 History metoprolol succinate 50 mg 50 mg PO DAILY 07/19/25 07/19/25 07/18/25 History tablet,extended release 24 hr pantoprazole 40 mg tablet,delayed 40 mg PO DAILY@0630 07/19/25 07/19/25 07/18/25 History release vitamin B complex 1 tab PO DAILY 07/19/25 07/19/25 07/18/25 History Exam Height,Weight and Vital Signs: Height 5 ft 2 in Weight 80.2 kg Last Vital Signs Temp 98.9 F 07/20/25 09:20 Pulse 89 07/20/25 09:20 Resp 17 07/20/25 09:20 BP 109/56 L 07/20/25 04:00 Pulse Ox 95 07/20/25 09:20 O2 Del Method Room Air 07/20/25 09:20 Pertinent Lab Results Pertinent Lab Results: Laboratory Tests 07/19/25 07/19/25 07/19/25 06:12 08:40 10:10 WBC 27.1 H RBC 4.60 Hgb 14.2 Hct 43.6 MCV 94.8 MCH 30.9 MCHC 32.6 RDW 15.1 Plt Count 210 MPV 10.5 Immature Gran % (Auto) 1.3 H Neut % (Auto) 91.5 H Lymph % (Auto) 1.6 L Braxton % (Auto) 5.2 Eos % (Auto) 0.0 Baso % (Auto) 0.4 Lymph # (Auto) 0.4 L Braxton # (Auto) 1.4 H Eos # (Auto) 0.0 Baso # (Auto) 0.1 Abs Immat Gran (auto) 0.34 H Absolute Neuts (auto) 24.8 H Absolute Nucleated RBC 0.000 Nucleated RBC % (auto) 0.0 Smear Tech's Comments VERIFIED PT INR aPTT Heparin Protocol Sodium 144 Potassium 3.0 L D Chloride 104 Carbon Dioxide 24 Anion Gap 19 BUN 33 H Creatinine 1.42 H Estim Creat Clear Calc 36.0 Estimated GFR 37 Random Glucose 148 H Lactic Acid 3.1 H* Lactic Acid F/U @ 2Hr 3.7 H* Lactic Acid F/U @ 4Hr Calcium 10.3 H Magnesium 1.6 Total Bilirubin 1.5 H Direct Bilirubin 0.4 AST 85 H ALT 24 Alkaline Phosphatase 110 Total Creatine Kinase 2194 H Troponin I High Sens 8337.7 H* D C-Reactive Protein 9.88 H Total Protein 7.7 Albumin 4.6 Lipase 6 L Procalcitonin 12.21 TSH Urine Color Dark Yellow Urine Appearance Cloudy Urine pH 5.5 Ur Specific Dana 1.020 Urine Protein 30 (1+) H Urine Glucose (UA) 500 H Urine Ketones Negative Urine Blood Small (1+) H Urine Nitrite Negative Ur Leukocyte Esterase Small (1+) H Urine RBC 0-2 Urine WBC 0-5 Ur Squamous Epith Cells 3-5 Urine Bacteria 2+ Hyaline Casts 3-5 Respiratory Panel Hoang Adenovirus (Rapid PCR) B.pert (TEM-PCR) B.parapertussis DNA PCR C. pneumoniae DNA (PCR) Coronavirus OC43 (PCR) Coronavirus HKU1 (PCR) Coronavirus 229E (PCR) Coronavirus NL63 (PCR) Human Metapneumovir PCR Influenza A (RT-PCR) Influenza A (H1) PCR Influ A (H1/09) PCR Influenza A (H3) PCR Influenza Type A (PCR) NEGATIVE Influenza B (RT-PCR) Influenza Type B (PCR) NEGATIVE M. pneumoniae (PCR) Parainfluenza 1 (PCR) Parainfluenza 2 (PCR) Parainfluenza 3 (PCR) Parainfluenza 4 (PCR) RSV (PCR) RSV RNA Qual (PCR) NEGATIVE Entero/Rhino (PCR) SARS-CoV-2 RNA (RT-PCR) NEGATIVE 07/19/25 07/19/25 07/19/25 12:03 13:12 18:40 WBC RBC Hgb Hct MCV MCH MCHC RDW Plt Count MPV Immature Gran % (Auto) Neut % (Auto) Lymph % (Auto) Braxton % (Auto) Eos % (Auto) Baso % (Auto) Lymph # (Auto) Braxton # (Auto) Eos # (Auto) Baso # (Auto) Abs Immat Gran (auto) Absolute Neuts (auto) Absolute Nucleated RBC Nucleated RBC % (auto) Smear Tech's Comments PT INR aPTT Heparin Protocol Sodium Potassium Chloride Carbon Dioxide Anion Gap BUN Creatinine Estim Creat Clear Calc Estimated GFR Random Glucose Lactic Acid Lactic Acid F/U @ 2Hr Lactic Acid F/U @ 4Hr 3.8 H* Calcium Magnesium Total Bilirubin Direct Bilirubin AST ALT Alkaline Phosphatase Total Creatine Kinase Troponin I High Sens 60171.6 H* C-Reactive Protein Total Protein Albumin Lipase Procalcitonin TSH Urine Color Urine Appearance Urine pH Ur Specific Dana Urine Protein Urine Glucose (UA) Urine Ketones Urine Blood Urine Nitrite Ur Leukocyte Esterase Urine RBC Urine WBC Ur Squamous Epith Cells Urine Bacteria Hyaline Casts Respiratory Panel Hoang See Note Adenovirus (Rapid PCR) Not Detected B.pert (TEM-PCR) Not Detected B.parapertussis DNA PCR Not Detected C. pneumoniae DNA (PCR) Not Detected Coronavirus OC43 (PCR) Not Detected Coronavirus HKU1 (PCR) Not Detected Coronavirus 229E (PCR) Not Detected Coronavirus NL63 (PCR) Not Detected Human Metapneumovir PCR Not Detected Influenza A (RT-PCR) Not Detected Influenza A (H1) PCR Not Detected Influ A (H1/09) PCR Not Detected Influenza A (H3) PCR Not Detected Influenza Type A (PCR) Influenza B (RT-PCR) Not Detected Influenza Type B (PCR) M. pneumoniae (PCR) Not Detected Parainfluenza 1 (PCR) Not Detected Parainfluenza 2 (PCR) Not Detected Parainfluenza 3 (PCR) Not Detected Parainfluenza 4 (PCR) Not Detected RSV (PCR) Not Detected RSV RNA Qual (PCR) Entero/Rhino (PCR) Not Detected SARS-CoV-2 RNA (RT-PCR) Not Detected 07/20/25 07/20/25 04:12 08:37 WBC 11.5 H 11.0 H RBC 3.64 L D 4.02 L Hgb 11.5 L 12.7 Hct 35.5 L 39.3 MCV 97.5 97.8 MCH 31.6 31.6 MCHC 32.4 32.3 RDW 15.3 15.1 Plt Count 140 L D 147 L MPV 10.5 11.0 Immature Gran % (Auto) Neut % (Auto) Lymph % (Auto) Braxton % (Auto) Eos % (Auto) Baso % (Auto) Lymph # (Auto) Braxton # (Auto) Eos # (Auto) Baso # (Auto) Abs Immat Gran (auto) Absolute Neuts (auto) Absolute Nucleated RBC 0.000 0.000 Nucleated RBC % (auto) 0.0 0.0 Smear Tech's Comments PT 14.9 H INR 1.2 H aPTT Heparin Protocol 30.8 L D Sodium 142 Potassium 3.5 Chloride 109 H Carbon Dioxide 22 Anion Gap 15 BUN 32 H Creatinine 1.21 Estim Creat Clear Calc 42.3 Estimated GFR 44 Random Glucose 81 Lactic Acid Lactic Acid F/U @ 2Hr Lactic Acid F/U @ 4Hr Calcium 9.1 D Magnesium 1.5 L Total Bilirubin Direct Bilirubin AST ALT Alkaline Phosphatase Total Creatine Kinase 1179 H Troponin I High Sens C-Reactive Protein Total Protein Albumin Lipase Procalcitonin TSH 1.52 Urine Color Urine Appearance Urine pH Ur Specific Dana Urine Protein Urine Glucose (UA) Urine Ketones Urine Blood Urine Nitrite Ur Leukocyte Esterase Urine RBC Urine WBC Ur Squamous Epith Cells Urine Bacteria Hyaline Casts Respiratory Panel Hoang Adenovirus (Rapid PCR) B.pert (TEM-PCR) B.parapertussis DNA PCR C. pneumoniae DNA (PCR) Coronavirus OC43 (PCR) Coronavirus HKU1 (PCR) Coronavirus 229E (PCR) Coronavirus NL63 (PCR) Human Metapneumovir PCR Influenza A (RT-PCR) Influenza A (H1) PCR Influ A (H1/09) PCR Influenza A (H3) PCR Influenza Type A (PCR) Influenza B (RT-PCR) Influenza Type B (PCR) M. pneumoniae (PCR) Parainfluenza 1 (PCR) Parainfluenza 2 (PCR) Parainfluenza 3 (PCR) Parainfluenza 4 (PCR) RSV (PCR) RSV RNA Qual (PCR) Entero/Rhino (PCR) SARS-CoV-2 RNA (RT-PCR) Narrative Narrative: EKG 07/19/25 Vent. Rate : 96 BPM Atrial Rate : 96 BPM P-R Int : 142 ms QRS Dur : 78 ms QT Int : 362 ms P-R-T Axes : 49 -2 47 degrees QTcB Int : 457 ms Sinus rhythm with frequent Premature atrial complexes Otherwise normal ECG When compared with ECG of 18-Jan-2025 02:52, Vent. rate has decreased Burst of PACs no longer present ST no longer elevated in Inferior leads Non-specific change in ST segment in Lateral leads Nonspecific T wave abnormality, worse in Lateral leads ECHO 07/19/25 Procedure Type: Transthoracic Echocardiogram Location: ER Height: 157.48 cm Weight: 77.57 kg BSA: 1.79 m2 Heart Rate: 74 bpm BP: 101 / 50 mmHg [employer] Director: MYRTLE Gamboa MD: Fozia Sharma DO Car Wash Attendant Automatic: Fito Juarez MD Symptoms: Elevated troponin Study Quality: Fair but adequate ECG Rhythm: Sinus Conclusions: - 1. Normal LV ejection fraction 55-60% with underlying regional wall motion abnormality consistent with coronary disease 2. Suly-[id number] aortic stenosis 3. Normal RV systolic pressure 4. No gross pericardial effusion Assessment and Plan Final Anesthetic Review Family History of Problems with Anesthesia: No History of Problems with Anesthesia: Yes Documented by User: Katia Jackson MD 07/21/25 13:28 [facility] Past Medical History Medical History CKD stage 3b, GFR 30-44 ml/min Diarrhea Congestive heart failure Atrial fibrillation Septic shock Group B streptococcal bacteriuria IBS (irritable bowel syndrome) History of cellulitis Elevated cholesterol HTN (hypertension) PONV (postoperative nausea and vomiting) Colon cancer screening Eczema DVT (deep venous thrombosis) Cough Primary osteoarthritis, right hand Primary osteoarthritis, left hand Gout Polymyositis Family History Family History Mother No problems noted. Father No problems noted. 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 Cognitive needs: No Hearing needs: No Vision needs: Yes (rx glasses) Meds Allergies Allergy/AdvReac Type Severity Reaction Status Date / Time hydroxychloroquine Allergy Severe Rash Verified 07/19/25 06:02 (Plaquenil) codeine (Codeine) Allergy Intermediate NAUSEA & Verified 07/19/25 06:02 VOMITING methotrexate Allergy Intermediate Diarrhea Verified 07/19/25 06:02 oxycodone Allergy Intermediate dizziness, Verified 07/19/25 06:02 nausea, vomiting tramadol Allergy Intermediate Diarrhea Verified 07/19/25 06:02 metronidazole Allergy Unknown Vomiting Verified 07/19/25 06:02 hydromorphone (From Dilaudid) AdvReac Vomiting Verified 07/19/25 06:02 Home Medications ?Medication ?Instructions ?Recorded ?Confirmed ?Last Taken ?Type acetaminophen 650 mg 650 mg PO Q8H PRN Pain 07/21/20 07/19/25 Unknown History tablet,extended release allopurinol 100 mg tablet 100 mg PO DAILY 01/18/22 07/19/25 07/18/25 History apixaban 5 mg tablet (Eliquis) 5 mg PO BID 01/26/25 07/19/25 07/18/25 History dapagliflozin propanediol 10 mg 10 mg PO DAILY 02/25/25 07/19/25 07/18/25 History tablet (Farxiga) ferrous sulfate 325 mg (65 mg 325 mg PO DAILY 06/22/25 07/19/25 07/18/25 History iron) tablet potassium chloride 20 mEq 20 meq PO DAILY 06/22/25 07/19/25 07/18/25 History tablet,extended release cholecalciferol (vitamin D3) 50 50 mcg PO DAILY 07/19/25 07/19/25 07/18/25 History mcg (2,000 unit) capsule (Vitamin D3) furosemide 40 mg tablet 80 mg PO DAILY 07/19/25 07/19/25 07/18/25 History metoprolol succinate 50 mg 50 mg PO DAILY 07/19/25 07/19/25 07/18/25 History tablet,extended release 24 hr pantoprazole 40 mg tablet,delayed 40 mg PO DAILY@0630 07/19/25 07/19/25 07/18/25 History release vitamin B complex 1 tab PO DAILY 07/19/25 07/19/25 07/18/25 History Exam Airway Mallampati Class: II TM Dist: >3cm Neck ROM: Full Loose/Missing/Broken Teeth: No Heart: RRR Lungs: CTA Assessment and Plan Assessment Anesthesia Assessment: Anesthesia Plan Discussed and Chart Reviewed Final Anesthetic Review NPO: Yes ASA Class: IV Final Preanesthetic Review: Meds/Allgs Chart Reviewed, Consent Obtained/Reviewed and Anes Risks/Benef Reviewed Patient Risk: High Procedure Risk: Low Anesthetic Plan Anesthetic Plan: MAC: Disposition: Standard PACU
--- NOTE | 2025-07-20 12:27 | PC.NURSE ---
LR still infusing at 100mL/hr per order, MAR populates frequency for bag change too quickly, therefore EMR didn't properly reflect IVF infusing. Pharmacy contacted, awaiting new order.
--- NOTE | 2025-07-20 13:00 | PC.NURSE ---
Upon standing up to bedside commode, pt's HR 170s. Rapid response called, pt currently denies CP/dizziness/SOB. Metoprolol ordered, EKG obtained.
[2025-07-20] MEDS: Amiodarone/Dextrose 150 MG/100 ML PLAST..BAG 600 MG IV (13:28)
--- NOTE | 2025-07-20 13:47 | HO.NURTONUR ---
Pt arrived c/o generalized weakness. Pt reports remaining on the toilet x4 hrs due to weakness/was unable to get herself up. This led to pt crawling to her room to call 911. In ED patient febrile, with labs showing WBC of 27.1, potassium 3.0, creatinine 1.4. Pt also found to have elevated troponins (8337.7-62098.6), awaiting TTE. Per cardiology, no heparin drip, continuing eliquis. Pt also had abd US showing possible cholecystitis, awaiting HIDA scan order. Pt aaox4, ambulates x1 assist. Admitted for IV abx, LR @ 100mL/hr (issue w/EMR documentation, LR has been continuously infusing, pharmacy placed new order). UPDATE: pt now on Amio drip @ 1mg/min after rapid afib in 170s. Rapid response was called, pt denies any CP/dizziness/SOB.
--- NOTE | 2025-07-20 14:43 | P.PNIM_ITS ---
Subjective Subjective Date of Service: 07/20/25 Interval History: Patient seen examined at bedside this morning, yesterday patient with hypotension, requiring IV fluid boluses, earlier today, patient had episode of atrial fibrillation with hypotension, requiring amiodarone drip placement. Spoke with Cardiology, suggested on possible ANUPAM tomorrow to rule out endocarditis. Patient at this time states that she feels well, denies any chest pain, shortness of breath, palpitations. Review of Systems Review of Systems: Yes all other systems are reviewed and are negative Physical Exam 2 Exam: Exam: General: AxOx3, No acute distress Head: AT/NC ENT: Moist mucous membranes Neck: supple CVS; irregularly irregular, S1 S2 normal Lungs: Clear bilateral breath sounds, no wheezes or crackles Abd: Soft non tender, non distended Ext: No edema and no calf tenderness MSK: moving all 4 limbs Skin: Left lower extremity erythema Psych: Cooperative with exam Neurology: no focal deficit Vital Signs: Vital Signs: Last Vital Signs Temp 98.6 F 07/20/25 14:35 Pulse 85 07/20/25 14:35 Resp 14 07/20/25 14:35 BP 108/51 L 07/20/25 14:35 Pulse Ox 97 07/20/25 14:35 O2 Del Method Room Air 07/20/25 13:05 BMI result Body Mass Index 32.3 Objective Data Active Medications Apixaban (Apixaban 5 Mg Tablet) 5 mg PO BID [facility] Last Admin: 07/20/25 10:04 Dose: 5 mg Documented By: ARTUR Calcium Carbonate (Calcium Carbonate 750 Mg Tab.Chew) 750 mg PO Q4H PRN PRN Reason: Heartburn Piperacillin Sod/Tazobactam (Sod 4.5 gm/ Sodium Chloride) 100 mls @ 200 mls/hr IV Q8H [facility] Last Infusion: 07/20/25 12:04 Dose: Infused Documented By: GRICELDA-TIMOTHY Acetaminophen (Ofirmev) 1,000 mg in 100 mls @ 400 mls/hr IV Q6H PRN PRN Reason: Pain, Mild 1-3,fever,headache Last Infusion: 07/19/25 12:26 Dose: Infused Documented By: JESSICA Vancomycin HCl 500 mg/ Sodium (Chloride) 110 mls @ 110 mls/hr IV Q12H [facility] Last Infusion: 07/20/25 10:46 Dose: Infused Documented By: ARTUR Lactated Ringer's (Lr) 1,000 mls @ 100 mls/hr IVCONT .Q10H [facility] Last Admin: 07/20/25 12:30 Dose: 100 mls/hr Documented By: ALLAN Amiodarone HCl 900 mg/ Sodium (Chloride) 518 mls @ 0 mls/hr IVCONT .Q0M [facility]; Protocol Last Admin: 07/20/25 13:46 Dose: 1 mg/min, 34.53 mls/hr Documented By: ALLAN Magnesium Sulfate/Dextrose (Magnesium Sulfate/D5w) 1 gm in 100 mls @ 100 mls/hr IV ONCE ONE Stop: 07/20/25 15:36 Magnesium Hydroxide (Milk Of Magnesia 30 Ml Oral.Susp) 30 ml PO DAILY PRN PRN Reason: Constipation Melatonin (Melatonin 3 Mg Tablet) 6 mg PO BEDTIME PRN PRN Reason: Insomnia Ondansetron HCl (Ondansetron Hcl 4 Mg/2 Ml Vial) 4 mg IVPUSH Q8H PRN PRN Reason: Nausea and Vomiting Pantoprazole Sodium (Pantoprazole Sodium 40 Mg/10 Ml Vial) 40 mg IVPUSH DAILY@0630 [facility] Last Admin: 07/20/25 06:16 Dose: 40 mg Documented By: TASIA Pharmacy Consult (Consult Rx Vancomycin Dosing) 1 each MISCELLANE DAILY PRN PRN Reason: Consult order Sodium Chloride (0.9 % Sodium Chloride Flush 3 Ml Syringe) 3 ml IVFLUSH QSHIFT [facility] Last Admin: 07/20/25 09:09 Dose: 3 ml Documented By: ARTUR Labs 07/20/25 08:37 07/20/25 04:12 Labs: Laboratory Results - last 24 hr 07/19/25 07/19/25 07/20/25 13:12 18:40 04:12 MCV 97.5 MCH 31.6 MCHC 32.4 RDW 15.3 Plt Count 140 L D MPV 10.5 Absolute Nucleated RBC 0.000 Nucleated RBC % (auto) 0.0 PT INR aPTT Heparin Protocol Anion Gap 15 Estim Creat Clear Calc 42.3 Estimated GFR 44 Random Glucose 81 Calcium 9.1 D Magnesium 1.5 L Total Creatine Kinase 1179 H Troponin I High Sens 61944.6 H* TSH 1.52 Respiratory Panel Hoang See Note Adenovirus (Rapid PCR) Not Detected B.pert (TEM-PCR) Not Detected B.parapertussis DNA PCR Not Detected C. pneumoniae DNA (PCR) Not Detected Coronavirus OC43 (PCR) Not Detected Coronavirus HKU1 (PCR) Not Detected Coronavirus 229E (PCR) Not Detected Coronavirus NL63 (PCR) Not Detected Human Metapneumovir PCR Not Detected Influenza A (RT-PCR) Not Detected Influenza A (H1) PCR Not Detected Influ A () PCR Not Detected Influenza A (H3) PCR Not Detected Influenza B (RT-PCR) Not Detected M. pneumoniae (PCR) Not Detected Parainfluenza 1 (PCR) Not Detected Parainfluenza 2 (PCR) Not Detected Parainfluenza 3 (PCR) Not Detected Parainfluenza 4 (PCR) Not Detected RSV (PCR) Not Detected Entero/Rhino (PCR) Not Detected SARS-CoV-2 RNA (RT-PCR) Not Detected 07/20/25 08:37 MCV 97.8 MCH 31.6 MCHC 32.3 RDW 15.1 Plt Count 147 L MPV 11.0 Absolute Nucleated RBC 0.000 Nucleated RBC % (auto) 0.0 PT 14.9 H INR 1.2 H aPTT Heparin Protocol 30.8 L D Anion Gap Estim Creat Clear Calc Estimated GFR Random Glucose Calcium Magnesium Total Creatine Kinase Troponin I High Sens TSH Respiratory Panel Hoang Adenovirus (Rapid PCR) B.pert (TEM-PCR) B.parapertussis DNA PCR C. pneumoniae DNA (PCR) Coronavirus OC43 (PCR) Coronavirus HKU1 (PCR) Coronavirus 229E (PCR) Coronavirus NL63 (PCR) Human Metapneumovir PCR Influenza A (RT-PCR) Influenza A (H1) PCR Influ A () PCR Influenza A (H3) PCR Influenza B (RT-PCR) M. pneumoniae (PCR) Parainfluenza 1 (PCR) Parainfluenza 2 (PCR) Parainfluenza 3 (PCR) Parainfluenza 4 (PCR) RSV (PCR) Entero/Rhino (PCR) SARS-CoV-2 RNA (RT-PCR) Microbiology Microbiology Results: Microbiology 07/19/25 Unknown Urine Culture - Final Urine clean catch - Clean Catch Midstream 07/19/25 06:12 Blood Culture - Preliminary Blood - Venous Prelim: GPC Gram Stain only 07/19/25 06:12 Blood Culture - Preliminary Blood - Venous No growth after 24 hours. Assessment and Plan (1) Severe sepsis with lactic acidosis: Status: Acute (2) Type 2 myocardial infarction due to shock: Status: Acute (3) HTN (hypertension): Status: Acute (4) JÚNIOR (acute kidney injury): Status: Acute (5) Atrial fibrillation: Status: Acute Plan Assessment: 69-year-old female who presented to the hospital complaining of generalized malaise, found to have severe sepsis with lactic acidosis, started on broad-spectrum antibiotics. patient developed atrial fibrillation with hypotension, requiring amiodarone infusion, plans on ANUPAM tomorrow to rule out endocarditis. Severe sepsis with lactic acidosis, likely secondary to cellulitis, to rule out endocarditis, improving Leukocytosis, improving -labs and imaging reviewed, awaiting blood cultures and urine cultures -status post sepsis bolus given in the ED, we will continue with IV fluids at 100 mL/hour -status post ceftriaxone given in ED, continue broad-spectrum antibiotics of vancomycin and Zosyn, we will tailor based on cultures -monitor BP with goal map greater than 65 -infectious disease consulted -will make NPO past midnight for ANUPAM tmrw to rule out endocarditis Suspect type 2 NH -troponin 8337->12,019.6 -TTE with hypokensis, patient underwent cath recently with no findings. -telemetry -cardiology consulted and following -continue w/ eliquis -monitor for any signs of chest pain, shortness of breath JÚNIOR,, likely multifactorial in the setting of prerenal azotemia and rhabdomyolysis, improving Rhabdomyolysis, improving -creatinine 1.4, CK 2194 -> 1179 -UA reviewed -we will continue with LR at 100 mL, status post sepsis bolus given Atrial fibrillation -s/p metoprolol given, will initiate amiodarone drip as patient was having episodes of hypotension. Eliquis continued Elevated T bilirubin -could be secondary to decreased perfusion, ultrasound ordered to rule out cholecystitis, choledocholithiasis -Us reviewed wiht positive sonographic ordonez sign, moderately distended gallbladder w/ debris Hypokalemia -status post p.o. potassium given, we will continue with LR at this time FEN: LR, replete as needed, cardiac GI PPX: Protonix DVT PPX: Eliquis and SCDs Code status: Full code Disposition: All questions and concerns with the patient were answered to satisfaction. All pertinent clinical documents, images and labs were reviewed. DISCLAIMER: This document was created using voice recognition software. Any mistakes in the prescription are unintentional. An attempt was made to focus for accuracy, but to expedite availability, some errors may persist. Please contact with any need for correction or further clarification Quality Stroke Does the patient have a stroke diagnosis?: No VTE Prior VTE?: No VTE Risk Level:: Medical - moderate - high VTE Device Contraindication: N/A - Device Ordered VTE Drug Contraindication: N/A - Med Ordered
[2025-07-21] VITALS (14 sets, daily range): BP systolic 95–163; BP diastolic 51–83; PULSE 59–120; RESP 16–20; TEMP 36.1–36.9; O2SAT 93–97
[2025-07-21] MEDS: Lactated Ringers 1,000 ML 100 ML IVCONT ×2 (01:45→15:53)
[2025-07-21 07:38] LABS: Hematocrit 36.6 % (37.0-47.0); Hemoglobin 11.6 g/dl (12.0-16.0); Mean Corpuscular HGB Conc 31.7 g/dl (31.0-35.0); Mean Corpuscular Hemoglobin 31.3 pg (27.0-33.0); Mean Corpuscular Volume 98.7 fL (80.0-98.0); NRBC Abs Auto 0.000 X10*3/uL (0.0-0.012); NRBC Pct Auto 0.0 /100WBC (0.0-0.2); Platelet Count 130 X10*3/uL (160-400); Red Blood Count 3.71 X10*6/uL (4.20-5.50); White Blood Count 7.2 X10*3/uL (4.8-10.8)
[2025-07-21 07:47] LABS: INTERNATIONAL NORM RATIO 1.5 (0.9-1.1); Prothrombin Time 17.6 SEC (11.2-13.5)
[2025-07-21 07:52] LABS: Anion Gap 13 (12-20); Blood Urea Nitrogen 20 mg/dL (9-16); Calcium 9.2 mg/dL (8.4-10.2); Carbon Dioxide 20 mmol/L (22-29); Chloride 115 mmol/L (96-108); Creatinine Clr Calc Pharmacy 53.1; Estimated Glomerular Filt Rate 56; Magnesium 1.9 mg/dL (1.6-2.6); Potassium 3.4 mmol/L (3.3-5.1); Sodium 145 mmol/L (135-145)
--- NOTE | 2025-07-21 10:07 | P.PNCA_ITS ---
Subjective Subjective Date of Service: 07/21/25 Principal diagnosis: [place], sepsis, paroxysmal atrial fibrillation Interval history: Patient overnight developed rapid heart rate and to 160 to atrial fibrillation was started on amiodarone drip. Has converted to sinus rhythm this morning. Complains of weakness and malaise. Otherwise no fever or chills. No chest pain. Review of Systems Constitutional: Reports no additional constitutional complaints Eyes: Reports no additional eye complaints Cardiovascular: Reports no additional cardiovascular complaints Gastrointestinal: Reports no additional gastrointestinal complaints Reports system reviewed and no additional complaints, except as documented Physical Exam Vital Signs: Last Vital Signs Temp 97.8 F 07/21/25 07:55 Pulse 80 07/21/25 07:55 Resp 17 07/21/25 07:55 BP 160/80 H 07/21/25 07:55 Pulse Ox 96 07/21/25 07:55 O2 Del Method Room Air 07/21/25 07:55 BMI result Body Mass Index 32.3 Const General: cooperative, comfortable, no acute distress, alert and awake Nutritional Appearance: obese Orientation/consciousness: patient oriented x3 HEENT Head: Yes normocephalic and Yes atraumatic Neck Neck: Yes trachea midline, Yes supple and Yes no JVD Resp Effort & Inspection: normal respiratory effort Auscultation: clear to auscultation bilaterally Cardio Jugular venous distension: no JVD Rate: regular rate Rhythm: regular rhythm Heart sounds: S1 normal heart sound present, S2 normal heart sound present, no click, no gallops and Murmur heart sound present systolic GI Auscultation: normal bowel sounds Skin General skin exam: no rashes or lesions noted Neuro General: patient oriented x3 and no focal motor deficits Extrem General: Yes no clubbing, cyanosis or edema Psych Appearance: grossly normal Objective Labs and Meds 07/21/25 07:03 07/21/25 07:03 Lab results: Laboratory Results - last 24 hr 07/20/25 07/21/25 18:17 07:03 WBC 7.2 RBC 3.71 L Hgb 11.6 L Hct 36.6 L MCV 98.7 H MCH 31.3 MCHC 31.7 RDW 15.4 Plt Count 130 L MPV 10.7 Absolute Nucleated RBC 0.000 Nucleated RBC % (auto) 0.0 PT 17.6 H INR 1.5 H Sodium 145 Potassium 3.4 Chloride 115 H Carbon Dioxide 20 L Anion Gap 13 BUN 20 H Creatinine 0.98 Estim Creat Clear Calc 53.1 Estimated GFR 56 Random Glucose 83 Calcium 9.2 Magnesium 1.9 Random Vancomycin 17.7 Progress Note: A&P Assessment and plan (1) Non-ST elevated myocardial infarction (non-STEMI): Status: Inactive Assessment and Plan: NSTEMI in this elderly woman with normal coronary he has done by cardiac catheterization this year at [facility]. Echocardiogram does show wall motion abnormality. Question embolic event. She is on oral anticoagulation therapy with Eliquis I would continue the same. Question endocarditis given her recurrent sepsis and embolic events. Will need CALEB. Discussed in details about CALEB including risks, benefits, alternatives. She is agreeable. Plan for CALEB later today. Please keep her NPO (2) Paroxysmal atrial fibrillation: Status: Acute Assessment and Plan: Paroxysmal atrial fibrillation, with recurrent event yesterday. Started on amiodarone drip appropriately. Converted to sinus rhythm. Has been on full oral anticoagulation with Eliquis. Caleb as about to evaluate for intracardiac thrombi or masses. Will follow with you Time Spent With Patient Time: Total time managing care of this patient today ____ minutes. Progress Note: Quality Stroke Does the patient have a stroke diagnosis?: No Procedures Date of Service Date of Service: 07/21/25
--- NOTE | 2025-07-21 11:51 | MHC.SHP ---
Pre-Procedural Eval Section A - 24 Hr Update-Section A only Date of Service: 07/21/25 The patient is an INPATIENT: Yes Changes since office visit: Yes Changes in Medication and Yes Patient answered all questions; No Cold of Flu in the past 2 weeks and No New Medical Problems The patient has been examined within 24 hours of the surgical procedure. The History & Physical has been completed within 30 days and I have reviewed it.: Yes Section B - Complete if H&P > 30 days Chief Complaint: SIRS, elevated trops Allergies: Allergies Allergy/AdvReac Type Severity Reaction Status Date / Time hydroxychloroquine Allergy Severe Rash Verified 07/19/25 06:02 (Plaquenil) codeine (Codeine) Allergy Intermediate NAUSEA & Verified 07/19/25 06:02 VOMITING methotrexate Allergy Intermediate Diarrhea Verified 07/19/25 06:02 oxycodone Allergy Intermediate dizziness, Verified 07/19/25 06:02 nausea, vomiting tramadol Allergy Intermediate Diarrhea Verified 07/19/25 06:02 metronidazole Allergy Unknown Vomiting Verified 07/19/25 06:02 hydromorphone (From Dilaudid) AdvReac Vomiting Verified 07/19/25 06:02 Plan I have reviewed the history and physical and performed a pertinent physical examination on my patient. No changes have occurred unless specified. Time Spent With Patient Time: Total time managing care of this patient today ____ minutes.
--- NOTE | 2025-07-21 13:00 | CA_ITS ---
Transesophageal Echocardiogram Patient (Last, First, Middle): Karol Frias, Gender: F Date of : 1955 Age: 69 Procedure Date: 07/21/2025 Procedure Type: Transesophageal Echocardiogram [place] [facility] [place]: 172.72 cm Weight: kg Manager Marketing Communications: MEREDITH Referring MD: Fito Juarez MD Compliance Testing Analyst: Fito Juarez MD Symptoms: Bacteremia, Rule out endocarditis Conclusion: ??? 1. NO intracardiac vegetations or thrombi seen 2. Normal LV ejection fraction 3. Calcific aortic stensosis, mild to moderate 4. Mild mitral regurgitation and mild to moderate tricuspid regirgitation 5. No intracardiac shunting 6. No pericardial effusion. Findings Procedure Information Consent was obtained prior to the procedure. Pre ANUPAM oral cavity was checked and revealed no overcrowding. The adult 3D probe was passed with no difficulty. This was a technically good study. Left Ventricle Normal left ventricular size, thickness, and systolic function. The visually estimated ejection fraction is between 55-60%. There is no evidence of a mass in the left ventricle. Right Ventricle Normal right ventricular cavity size and systolic function. Atria The left atrium is mildly dilated. There is no evidence of interatrial shunt. There is no evidence of thrombus or mass in the left atrium. Smoke formation seen within the left atrium and left atrial appendage cavity. Left atrial appendage was atypical valvular multiple views with no evidence of thrombi or masses. Left upper, right upper and right lower pulmonary vein drain normally. The right atrium is mildly dilated. There is no evidence of thrombus or mass in the right atrium. IVC and SVC normally drain into RA. Aortic Valve Normal aortic valve structure and function. There is mild to moderate aortic valve stenosis. There is no evidence of a mass on the aortic valve. There is no aortic valve regurgitation. Mitral Valve There is mild anterior and posterior mitral leaflet thickening. There is mild mitral valve regurgitation. There is no mitral valve stenosis. There is no mass noted on the mitral valve. Pulmonic Valve The pulmonic valve is normal. There is no mass noted on the pulmonic valve. Tricuspid Valve Normal tricuspid valve structure. There is mild to moderate tricuspid valve regurgitation. There is no evidence of a mass on the tricuspid valve. The right ventricular systolic pressure is not calculated. Great Vessels The pulmonary artery was not well visualized. Venous The inferior vena cava is normal in size and collapses greater than 50% with inspiration. Pericardium/Pleural There is no evidence of pericardial effusion. Prior Study Comparison No significant change compared to prior study. Updated by Fito Juarez on 05:35 PM with Status of Final Fito Juarez MD electronically signed on 07/21/2025 5:35:00 PM with status of Final
--- NOTE | 2025-07-21 15:35 | MHC.CM.PN ---
per rounds, pt. to have ANUPAM today, CM to follow for DC needs.
--- NOTE | 2025-07-21 17:19 | P.PNIM_ITS ---
Subjective Subjective Date of Service: 07/21/25 Interval History: Severe sepsis Review of Systems Patient went to ANUPAM-no endocarditis, patient is a with a RVR after that-received metoprolol IV, also patient on amiodarone drip Physical Exam 2 Exam: Exam: Appearance: Alert.? Oriented X3.? cvs: [id number] , no murmur res: air entry fair , no rales or wheezin abd: no rebound or guarding ,nt, bs present. ext pulses present , no cyanosis . neuro: axo3 , nonfocal. Vital Signs: Vital Signs: Last Vital Signs Temp 97.5 F 07/21/25 16:00 Pulse 59 07/21/25 16:00 Resp 18 07/21/25 16:00 BP 115/65 07/21/25 16:00 Pulse Ox 94 07/21/25 16:00 O2 Del Method Room Air 07/21/25 16:00 BMI result Body Mass Index 32.3 Objective Data Active Medications Apixaban (Apixaban 5 Mg Tablet) 5 mg PO BID [facility] Last Admin: 07/21/25 09:04 Dose: 5 mg Documented By: ABEL Calcium Carbonate (Calcium Carbonate 750 Mg Tab.Chew) 750 mg PO Q4H PRN PRN Reason: Heartburn Hydrocortisone (Hydrocortisone 1 % Cream 28.35 Gm Tube) 1 appl TOPICAL BID PRN; Protocol PRN Reason: Itching Acetaminophen (Ofirmev) 1,000 mg in 100 mls @ 400 mls/hr IV Q6H PRN PRN Reason: Pain, Mild 1-3,fever,headache Last Infusion: 07/19/25 12:26 Dose: Infused Documented By: JESSICA Vancomycin HCl 500 mg/ Sodium (Chloride) 110 mls @ 110 mls/hr IV Q12H [facility] Last Infusion: 07/21/25 11:37 Dose: Infused Documented By: ABEL Lactated Ringer's (Lr) 1,000 mls @ 100 mls/hr IVCONT .Q10H [facility] Last Admin: 07/21/25 15:53 Dose: 100 mls/hr Documented By: CHAVA Amiodarone HCl 900 mg/ Sodium (Chloride) 518 mls @ 0 mls/hr IVCONT .Q0M [facility]; Protocol Last Admin: 07/21/25 12:40 Dose: 0.5 mg/min, 17.27 mls/hr Documented By: CHAVA Piperacillin Sod/Tazobactam (Sod 4.5 gm/ Sodium Chloride) 100 mls @ 200 mls/hr IV Q6H [facility] Last Infusion: 07/21/25 16:38 Dose: Infused Documented By: CHAVA Magnesium Hydroxide (Milk Of Magnesia 30 Ml Oral.Susp) 30 ml PO DAILY PRN PRN Reason: Constipation Melatonin (Melatonin 3 Mg Tablet) 6 mg PO BEDTIME PRN PRN Reason: Insomnia Naloxone HCl (Naloxone Hcl 0.4 Mg/Ml Vial) 0.04 mg IVPUSH Q5M PRN PRN Reason: Excessive sedation or RR < 8 Ondansetron HCl (Ondansetron Hcl 4 Mg/2 Ml Vial) 4 mg IVPUSH Q8H PRN PRN Reason: Nausea and Vomiting Pantoprazole Sodium (Pantoprazole Sodium 40 Mg/10 Ml Vial) 40 mg IVPUSH DAILY@0630 [facility] Last Admin: 07/21/25 06:09 Dose: 40 mg Documented By: MICKY Pharmacy Consult (Consult Rx Vancomycin Dosing) 1 each MISCELLANE DAILY PRN PRN Reason: Consult order Sodium Chloride (0.9 % Sodium Chloride Flush 3 Ml Syringe) 3 ml IVFLUSH QSHIFT [facility] Last Admin: 07/21/25 16:07 Dose: Not Given Documented By: CHAVA Non-Admin Reason: IV Running Labs 07/21/25 07:03 07/21/25 07:03 Labs: Laboratory Results - last 24 hr 07/20/25 07/21/25 18:17 07:03 MCV 98.7 H MCH 31.3 MCHC 31.7 RDW 15.4 Plt Count 130 L MPV 10.7 Absolute Nucleated RBC 0.000 Nucleated RBC % (auto) 0.0 PT 17.6 H INR 1.5 H Anion Gap 13 Estim Creat Clear Calc 53.1 Estimated GFR 56 Random Glucose 83 Calcium 9.2 Magnesium 1.9 Random Vancomycin 17.7 Microbiology Microbiology Results: Microbiology 07/19/25 06:12 Blood Culture - Final Blood - Venous Coag negative Staphylococcus 07/19/25 06:12 Blood Culture - Preliminary Blood - Venous No growth after 48 hours. Assessment and Plan (1) Atrial fibrillation: Status: Acute Assessment and Plan: 69-year-old female who presented to the hospital complaining of generalized malaise, found to have severe sepsis with lactic acidosis, started on broad- spectrum antibiotics. patient developed atrial fibrillation with hypotension, requiring amiodarone infusion, plans on ANUPAM tomorrow to rule out endocarditis. Severe sepsis with lactic acidosis, likely secondary to cellulitis Leukocytosis, improving awaiting blood cultures:1/2 coagulase-negative Staph and urine cultures-mixed ANUPAM -negative for endocarditis monitor BP with goal map greater than 65 infectious disease consulted Suspect type 2 ID -troponin 8337->12,019.6 -TTE with hypokensis, patient underwent cath recently with no findings. -telemetry continue w/ eliquis -monitor for any signs of chest pain, shortness of breath Francisco likely multifactorial in the setting of prerenal azotemia and rhabdomyolysis, improving Rhabdomyolysis, improving -creatinine 1.4, CK 2194 -> 1179 -UA reviewed -we will continue with LR at 100 mL, status post sepsis bolus given Atrial fibrillation-AFib with a RVR and went for ANUPAM procedure -s/p metoprolol given, the patient heart rate improves-we will switch amiodarone to p.o. amiodarone, Eliquis continued Elevated T bilirubin could be secondary to decreased perfusion, ultrasound ordered to rule out cholecystitis, choledocholithiasis Us reviewed wiht positive sonographic ordonez sign, moderately distended gallbladder w/ debris Patient denies any abdominal pain. Hypokalemia Repleted and resolved. FEN: LR, replete as needed, cardiac GI PPX: Protonix DVT PPX: Eliquis and SCDs Code status: Full code Disposition: All questions and concerns with the patient were answered to satisfaction. All pertinent clinical documents, images and labs were reviewed. Ongoing need of stay: AFib with RVR-IV amiodrip, monitor tele overnight considering today AFib with the RVR episode, monitoring renal function electrolytes. Cardio follow-up Quality Stroke Does the patient have a stroke diagnosis?: No VTE Prior VTE?: No VTE Risk Level:: Medical - moderate - high VTE Device Contraindication: N/A - Device Ordered VTE Drug Contraindication: N/A - Med Ordered
--- NOTE | 2025-07-21 18:46 | HE.PHANOTE ---
Vancomycin Vancomycin trough 15.5. Continue with current regimen of 500 mg q12h even though predicted AUC of 384. Patients renal fxn improving. Since patient is therapeutic will continue at current dose and recheck level tomorrow ( 07/22/25 @1800) to see if dose would need to be increased.
[2025-07-21] MEDS: 0.9 % Sodium Chloride Flush 3 ML SYRINGE IVFLUSH (20:31)
[2025-07-21] MEDS: Hydrocortisone 1 % Cream 28.35 GM TUBE 1 APPL TOPICAL (21:30)
[2025-07-22] MEDS: Lactated Ringers 1,000 ML 100 ML IVCONT ×2 (02:19→16:23)
[2025-07-22 03:58] VITALS: BP 122/62; PULSE 54; RESP 18; TEMP 36.1; O2SAT 97
[2025-07-22 06:59] VITALS: BP 129/68; PULSE 70; RESP 16; TEMP 36.7; O2SAT 96
[2025-07-22 07:26] LABS: Hematocrit 37.4 % (37.0-47.0); Hemoglobin 12.1 g/dl (12.0-16.0); Mean Corpuscular HGB Conc 32.4 g/dl (31.0-35.0); Mean Corpuscular Hemoglobin 31.3 pg (27.0-33.0); Mean Corpuscular Volume 96.9 fL (80.0-98.0); NRBC Abs Auto 0.000 X10*3/uL (0.0-0.012); NRBC Pct Auto 0.0 /100WBC (0.0-0.2); Platelet Count 165 X10*3/uL (160-400); Red Blood Count 3.86 X10*6/uL (4.20-5.50); White Blood Count 6.4 X10*3/uL (4.8-10.8)
[2025-07-22 08:05] LABS: Blood Urea Nitrogen 18 mg/dL (9-16); Calcium 9.1 mg/dL (8.4-10.2); Creatinine Clr Calc Pharmacy 51.5; Estimated Glomerular Filt Rate 54; Magnesium 2.0 mg/dL (1.6-2.6)
[2025-07-22 09:06] LABS: Anion Gap 16 (12-20); Carbon Dioxide 19 mmol/L (22-29); Chloride 114 mmol/L (96-108); Potassium 4.2 mmol/L (3.3-5.1); Sodium 145 mmol/L (135-145)
--- NOTE | 2025-07-22 09:33 | HO.POSTANES ---
Post Anesthesia Evaluation Post Anesthesia Evaluation Date of Service: 07/22/25 Vital Signs: Vital Signs Temp Pulse Resp BP Pulse Ox O2 Del Method 07/22/25 06:59 98.0 F 70 16 129/68 96 Room Air 07/22/25 03:58 97 F 54 18 122/62 97 Room Air 07/21/25 23:49 96.9 F 64 18 124/67 95 Room Air Anesthesia: TIVA Mental Status: Awake Pain Control: Satisfactory Nausea/Vomiting: None Hydration: Adequate Anesthesia-Related Issues: No Anes. Related Issues
[2025-07-22 10:36] VITALS: BP 129/68; PULSE 70; O2SAT 96
[2025-07-22 11:08] VITALS: BP 127/62; PULSE 73; RESP 16; TEMP 36.7; O2SAT 97
--- NOTE | 2025-07-22 11:32 | MHC.CM.PN ---
Second IMM, Pt. to DC today, CM met with her to ask about which VNA, and pt. said that she is going back to work on Saturday, so no VNA services to be referred. Her will transport home, plan is self care.
--- NOTE | 2025-07-22 11:54 | P.F2F_ITS ---
Service Date Service Date: 07/22/25 Encounter Date of encounter: 07/22/25 Encounter: Cellulitis, JÚNIOR, NSTEMI, AFib with RVR, hypokalemia Reasons for Services Signs and symptoms assessed: Any new symptoms of chest pain or worsening cellulitis or any fever or chills Or palpitations Reason for senior care: CV/CP assess and/or care, medication management, medication treatment and teach disease management Reason for physical therapy: home safety and mobility, therapeutic exercises, restore joint function, gait/transfer training, assess need for DME, ADL training, energy conservation and other MD Overseeing Care: Rosemarie Kraft Homebound: Leaving the home is medically contraindicated at this time without the asist of a device and/or another person due th the listed conditions above and below. Reason homebound: weakness related to hospital stay Homebound supporting statement: Patient is generalised weak post hospitlisation and need help with going to appointments and labs draws as well as PT. Certification: Based on the above findings, I certify that this patient is confined to the home and needs intermittent senior care care, physical therapy and/or speech therapy, or continues to need occupational therapy. The patient is under my care, and I have initiated the establishment of the plan of care. The patient will be followed by a physician who will periodically review the plan of care. Time Spent With Patient Time: Total time managing care of this patient today ____ minutes.
--- NOTE | 2025-07-22 11:58 | P.DS_ITS ---
DS: Providers Provider Date of Service: 07/22/25 Date of admission: 07/19/25 10:35 Date of discharge: 07/22/25 Primary care physician: CARIDAD Gonzales Consults: 07/19/25 15:37 Consult to Cardiology Routine Consulting Provider: [facility] Reason for consultation: elevated troponin Has provider been notified: No 07/20/25 14:27 Consult to Infectious Diseases Routine Consulting Provider: [facility] Reason for consultation: Sepsis Has provider been notified: No 07/21/25 10:52 Consult to Infectious Diseases Routine Consulting Provider: [facility] Reason for consultation: Sepsis Has provider been notified: No Attending physician on discharge: Jason Ortega Discharging clinician: Jason Ortega DS: Diagnosis Discharge Diagnosis (1) Atrial fibrillation: Status: Acute DS: Summary Hospital Course Hospital Course: HPI:69-year-old female with past medical history significant for CKD, CHF, AFib, group B streptococcal bacteremia, anemia, HLD, HTN, RA who presented to the hospital for generalized weakness. Patient states that yesterday she began feeling unwell with subjective fevers, went home to rest, and was in the toilet for about 4 hours unable to get herself up. Patient then crawled herself to the room, after could not help her called 911. Patient denies any chest pain, shortness of breath, dysuria, nausea or vomiting. In the ED patient febrile, with labs showing WBC of 27.1, potassium 3.0, creatinine 1.4 Hospital course: Patient was admitted for severe sepsis secondary to cellulitis : Patient was started on IV antibiotics, blood cultures sent, in addition to that patient was found to have NSTEMI(unclear etiology -possible multifactorial-sepsis/AFib with RVR/JÚNIOR), AFib with RVR received IV amiodarone drip, JÚNIOR/rhabdomyolysis-improved with the hydration. Patient also had lactic acidosis with a severe sepsis: Received hydration, since patient improved ,no further trending of lactic acid. Blood culture 1/2 coagulase-negative Staph: Likely contamination. In addition patient had ANUPAM done due to above severe sepsis, elevated [id number] for endocarditis. NSTEMI and AFib with RVR-added aspirin in addition to Eliquis, continue metoprolol and For cellulitis discussed with infectious disease: Recommended to switch to p.o. antibiotics-pending. AFib with RVR seems to be improved significantly after IV amiodarone currently in NSR-subsequently switched to p.o. amiodarone loading-400 mg p.o. b.i.d. for 2 weeks(08/04/25), then switched to amiodarone 200 mg p.o. q.d(08/05/25). Hypokalemia repleted and resolved. Mild elevated LFT: Likely elevated in the setting of rhabdo/could be secondary to decreased perfusion. Us reviewed with positive sonographic ordonez sign, moderately distended gallbladder w/ debris. But patient is asymptomatic. plan:Amiodarone as prescribed. Aspirin 81 mg daily for 3 months. Further use will be decided outpatient with Cardiology. Monitor BMP, LFTs outpatient, start statin after repeating LFTs and CPK outpatient preferably in a week. Follow up with PCP, Cardiology outpatient Above management discussed with the patient detail length she understand and in agreement with the above plan, time spent 50 minutes. Patient refused for VNA PT. Time Attestation Total time managing care of this patient today: 45 mintues. Discharge Coordination Time (in mins): 45 min Quality: Safe Use of Opioids Does Pt have an Active Cancer Diagnosis on the Problem List?: No Physical Exam Exam: Exam: Appearance: Alert.? Oriented X3. cvs: rrr, [id number] , no murmur res: clear to auscultation ,no rhonchii or wheezing abd: no rebound or guarding ,nt, bs present. ext pulses present , no cyanosis . neuro: axo3 , nonfocal. Vital Signs: Vital Signs: Last Vital Signs Temp 98.1 F 07/22/25 11:08 Pulse 73 07/22/25 11:08 Resp 16 07/22/25 11:08 BP 127/62 07/22/25 11:08 Pulse Ox 97 07/22/25 11:08 O2 Del Method Room Air 07/22/25 11:08 BMI result Body Mass Index 32.3 DS: Data Data Completed and Pending Labs on day of discharge: Laboratory Results - last 24 hr 07/21/25 07/22/25 18:08 06:31 WBC 6.4 RBC 3.86 L Hgb 12.1 Hct 37.4 MCV 96.9 MCH 31.3 MCHC 32.4 RDW 15.0 Plt Count 165 D MPV 10.9 Absolute Nucleated RBC 0.000 Nucleated RBC % (auto) 0.0 Sodium 145 Potassium 4.2 D Chloride 114 H Carbon Dioxide 19 L Anion Gap 16 BUN 18 H Creatinine 1.01 Estim Creat Clear Calc 51.5 Estimated GFR 54 Random Glucose 98 Calcium 9.1 Magnesium 2.0 Random Vancomycin 15.5 Preliminary micro results at discharge 07/19/25 06:12 Blood Culture - Preliminary Blood - Venous No growth after 48 hours. Imaging Chest x-ray: Radiologist's impression: ITS Impressions Venous Duplex 07/19/25 16:35 IMPRESSION: No evidence of deep venous thrombosis involving the bilateral lower extremities. ANUPAM: Conclusion: 1. NO intracardiac vegetations or thrombi seen 2. Normal LV ejection fraction 3. Calcific aortic stensosis, mild to moderate 4. Mild mitral regurgitation and mild to moderate tricuspid regirgitation 5. No intracardiac shunting 6. No pericardial effusion. Findings Procedure Information Consent was obtained prior to the procedure. Pre ANUPAM oral cavity was checked and revealed no overcrowding. The adult 3D probe was passed with no difficulty. This was a technically good study. Left Ventricle Normal left ventricular size, thickness, and systolic function. The visually estimated ejection fraction is between 55-60%. There is no evidence of a mass in the left ventricle. Right Ventricle Normal right ventricular cavity size and systolic function. Atria The left atrium is mildly dilated. There is no evidence of interatrial shunt. There is no evidence of thrombus or mass in the left atrium. Smoke formation seen within the left atrium and left atrial appendage cavity. Left atrial appendage was atypical valvular multiple views with no evidence of thrombi or masses. Left upper, right upper and right lower pulmonary vein drain normally. The right atrium is mildly dilated. There is no evidence of thrombus or mass in the right atrium. IVC and SVC normally drain into RA. Aortic Valve Normal aortic valve structure and function. There is mild to moderate aortic valve stenosis. There is no evidence of a mass on the aortic valve. There is no aortic valve regurgitation. Mitral Valve There is mild anterior and posterior mitral leaflet thickening. There is mild mitral valve regurgitation. There is no mitral valve stenosis. There is no mass noted on the mitral valve. Pulmonic Valve The pulmonic valve is normal. There is no mass noted on the pulmonic valve. Tricuspid Valve Normal tricuspid valve structure. There is mild to moderate tricuspid valve regurgitation. There is no evidence of a mass on the tricuspid valve. The right ventricular systolic pressure is not calculated. Great Vessels The pulmonary artery was not well visualized. Venous The inferior vena cava is normal in size and collapses greater than 50% with inspiration. Pericardium/Pleural There is no evidence of pericardial effusion. Prior Study Comparison No significant change compared to prior study Discharge Plan Discharge Anticipated Discharge Date/Time: 07/22/25 11:31 Patient Disposition: Home Health Service Discharge Diagnosis: Severe sepsis secondary to cellulitis. NSTEMI, JÚNIOR, AFib with RVR, hypokalemia case Referrals: Rosemarie Kraft PA [Primary Care Provider, Hospitalist] - 1 Week Discharge Medications: New amiodarone 200 mg Tablet 400 mg PO BID Qty: 90 0RF Rx Instructions: Amiodarone 400 mg p.o. b.i.d. until08/04/25 then on 08/05/25 switched to amiodarone 200 mg p.o. daily. aspirin 81 mg Tablet,Delayed Release (Dr/Ec) 81 mg PO DAILY Qty: 90 0RF Continued atorvastatin 20 mg tablet 20 mg PO DAILY 90 Days Qty: 90 1RF metoprolol succinate 50 mg tablet extended release 24 hr 50 mg PO DAILY vitamin B complex Tablet 1 tab PO DAILY cholecalciferol (vitamin D3) [Vitamin D3] 50 mcg (2,000 unit) Capsule 50 mcg PO DAILY pantoprazole 40 mg tablet,delayed release (DR/EC) 40 mg PO DAILY@0630 furosemide 40 mg tablet 80 mg PO DAILY acetaminophen 650 mg tablet extended release 650 mg PO Q8H PRN (Reason: Pain) allopurinol 100 mg tablet 100 mg PO DAILY dapagliflozin propanediol [Farxiga] 10 mg tablet 10 mg PO DAILY baclofen 10 mg tablet 10 - 20 mg PO BEDTIME Qty: 180 3RF Eliquis 5 mg tablet 5 mg PO BID loperamide [Imodium A-D] 2 mg capsule 2 mg PO QID PRN (Reason: diarrhea) 60 Days Qty: 180 2RF potassium chloride 20 mEq tablet extended release 20 meq PO DAILY ferrous sulfate 325 mg (65 mg iron) tablet 325 mg PO DAILY Rx Instructions: Take one pill by mouth every other day Diet: Advance to usual diet Activity on Discharge: As tolerated Stand Alone Forms: Patient Portal Discharge page Print Language: Citizen Of [place] Other Ambulatory Orders: Complete Blood Count no Diff (Routine) Timeframe: 1 Week Facility: [facility] - Location: Laboratory Ordered By: Jason Ortega Creatine Kinase Total (Routine) Timeframe: 1 Week Facility: [facility] - Location: Laboratory Ordered By: Jason Ortega Comprehensive Met. Panel (Routine) Timeframe: 1 Week Facility: [facility] - Location: Laboratory Ordered By: Jason Ortega Care Plan Goals: Patient was admitted for severe sepsis secondary to cellulitis : Patient was started on IV antibiotics, blood cultures sent, in addition to that patient was found to have NSTEMI(unclear etiology -possible multifactorial-sepsis/AFib with RVR/JÚNIOR), AFib with RVR received IV amiodarone drip, JÚNIOR/rhabdomyolysis-improved with the hydration. Patient also had lactic acidosis with a severe sepsis: Received hydration, since patient improved ,no further trending of lactic acid. Blood culture 1/2 coagulase-negative Staph: Likely contamination. In addition patient had ANUPAM done due to above severe sepsis, elevated [id number] for endocarditis. NSTEMI and AFib with RVR-added aspirin in addition to Eliquis, continue metoprolol and For cellulitis discussed with infectious disease: Recommended to switch to p.o. antibiotics-pending. AFib with RVR seems to be improved significantly after IV amiodarone currently in NSR-subsequently switched to p.o. amiodarone loading-400 mg p.o. b.i.d. for 2 weeks(08/04/25), then switched to amiodarone 200 mg p.o. q.d(08/05/25). Hypokalemia repleted and resolved. Mild elevated LFT: Likely elevated in the setting of rhabdo/could be secondary to decreased perfusion. Us reviewed with positive sonographic ordonez sign, moderately distended gallbladder w/ debris. But patient is asymptomatic. plan:Amiodarone as prescribed. Aspirin 81 mg daily for 3 months. Further use will be decided outpatient with Cardiology. Monitor BMP, LFTs outpatient, start statin after repeating LFTs and CPK outpatient preferably in a week. Follow up with PCP, Cardiology outpatient. Health Concerns: As above. Amiodarone as prescribed. Aspirin 81 mg daily for 3 months. Further use will be decided outpatient with Cardiology. Monitor BMP, LFTs outpatient, start statin after repeating LFTs and CPK ou tpatient preferably in a week. Follow up with PCP, Cardiology outpatient Plan of Treatment: As above. Assessment: As above.
--- NOTE | 2025-07-22 13:40 | P.PNCA_ITS ---
Subjective Subjective Date of Service: 07/22/25 Principal diagnosis: RI, sepsis, paroxysmal atrial fibrillation Interval history: Patient underwent ANUPAM yesterday which showed no evidence of endocarditis of intracardiac thrombus. She is doing well. Currently converted back to sinus rhythm and remains in sinus rhythm. No palpitations or chest pain. No fever episodes. Review of Systems Constitutional: Reports no additional constitutional complaints Physical Exam Vital Signs: Last Vital Signs Temp 98.1 F 07/22/25 11:08 Pulse 73 07/22/25 11:08 Resp 16 07/22/25 11:08 BP 127/62 07/22/25 11:08 Pulse Ox 97 07/22/25 11:08 O2 Del Method Room Air 07/22/25 11:08 BMI result Body Mass Index 32.3 Const General: cooperative, comfortable, no acute distress, alert and awake Nutritional Appearance: obese Orientation/consciousness: patient oriented x3 HEENT Head: Yes normocephalic and Yes atraumatic Neck Neck: Yes trachea midline, Yes supple and Yes no JVD Resp Effort & Inspection: normal respiratory effort Auscultation: clear to auscultation bilaterally Cardio Jugular venous distension: no JVD Rate: regular rate Rhythm: regular rhythm Heart sounds: S1 normal heart sound present, S2 normal heart sound present, no click, no gallops and Murmur heart sound present systolic GI Auscultation: normal bowel sounds Skin General skin exam: no rashes or lesions noted Neuro General: patient oriented x3 and no focal motor deficits Extrem General: Yes no clubbing, cyanosis or edema Psych Appearance: grossly normal Objective Labs and Meds 07/22/25 06:31 07/22/25 06:31 Lab results: Laboratory Results - last 24 hr 07/21/25 07/22/25 18:08 06:31 WBC 6.4 RBC 3.86 L Hgb 12.1 Hct 37.4 MCV 96.9 MCH 31.3 MCHC 32.4 RDW 15.0 Plt Count 165 D MPV 10.9 Absolute Nucleated RBC 0.000 Nucleated RBC % (auto) 0.0 Sodium 145 Potassium 4.2 D Chloride 114 H Carbon Dioxide 19 L Anion Gap 16 BUN 18 H Creatinine 1.01 Estim Creat Clear Calc 51.5 Estimated GFR 54 Random Glucose 98 Calcium 9.1 Magnesium 2.0 Random Vancomycin 15.5 Progress Note: A&P Assessment and plan (1) Non-ST elevated myocardial infarction (non-STEMI): Status: Inactive Assessment and Plan: NSTEMI of unclear etiology. There was no evidence of primary acute coronary syndrome. Her coronary angiogram during last hospitalization January at [facility] was within normal limits. Embolic event is likely although there was no clear evidence of endocarditis or intracardiac thrombi on ANUPAM. She is already on Eliquis therapy at this point time. I would consider adding low-dose aspirin therapy. Continue with high-intensity statin therapy. Conservative management. Other etiologies are most likely secondary event in the setting of severe sepsis/hypotension. Coronary vasospasm in his less likely. Continue medical management. Discussed with the patient. Follow up with her own rare/endangered species specialist. (2) Paroxysmal atrial fibrillation: Status: Acute Assessment and Plan: Paroxysmal atrial fibrillation with recurrent currently on amiodarone loading dose at 400 mg b.i.d. which will continue for 2 weeks followed by 200 mg daily. longterm may not require amiodarone therapy and may need alternative therapy and/or ablation. This will be pursued by his primary rare/endangered species specialist. Continue full oral anticoagulation with Eliquis. Will sign of the case. Thank you for allowing me to partake in her care Time Spent With Patient Time: Total time managing care of this patient today ____ minutes. Progress Note: Quality Stroke Does the patient have a stroke diagnosis?: No Procedures Date of Service Date of Service: 07/22/25
[2025-07-22 15:16] VITALS: BP 124/77; PULSE 74; RESP 16; TEMP 36.4; O2SAT 96
[2025-07-22] MEDS: Aspirin Enteric Coated 81 MG TABLET.DR PO (16:23)
--- NOTE | 2025-07-22 18:39 | HE.PHANOTE ---
Vancomycin addendum: Level came back at 16.8, predicted AUC still within therapeutic range. Kept dose and regimen the same and will recheck level in 2 days.
[2025-07-22 19:50] VITALS: BP 135/68; PULSE 67; RESP 18; TEMP 36.2; O2SAT 97
[2025-07-22] MEDS: 0.9 % Sodium Chloride Flush 3 ML SYRINGE IVFLUSH (22:44)
[2025-07-23] VITALS (10 sets, daily range): BP systolic 123–178; BP diastolic 70–103; PULSE 54–130; RESP 16–19; TEMP 36.3–37; O2SAT 92–97
--- NOTE | 2025-07-23 | ECG_ITS ---
Test Reason : Tachycardia Blood Pressure : */* mmHG Vent. Rate : 130 BPM Atrial Rate : * BPM P-R Int : * ms QRS Dur : 78 ms QT Int : 330 ms P-R-T Axes : * 27 210 degrees QTcB Int : 485 ms Atrial fibrillation with rapid ventricular response Septal infarct (cited on or before 19-Jul-2025) Abnormal ECG When compared with ECG of 20-Jul-2025 12:58, Questionable change in initial forces of Anteroseptal leads ST no longer depressed in Anterior leads Nonspecific T wave abnormality now evident in Inferior leads Referred By: Jason Ortega Electronically Signed By: NIKO DEY MD
[2025-07-23 06:59] LABS: Creatinine Clr Calc Pharmacy 53.1; Estimated Glomerular Filt Rate 56
[2025-07-23 08:10] LABS: Blood Urea Nitrogen 16 mg/dL (9-16); Calcium 8.9 mg/dL (8.4-10.2)
[2025-07-23 08:19] LABS: Anion Gap 13 (12-20); Carbon Dioxide 22 mmol/L (22-29); Chloride 115 mmol/L (96-108); Potassium 3.2 mmol/L (3.3-5.1); Sodium 147 mmol/L (135-145)
[2025-07-23] MEDS: Aspirin Enteric Coated 81 MG TABLET.DR PO (08:49)
--- NOTE | 2025-07-23 12:25 | W.PM.IDCN ---
History of Present Illness Data of Consult Service Date: 07/23/25 Requesting physician: Jason Ortega Primary Care Provider: CARIDAD Gonzales HPI Reason for consult: chills,fever to 102 She presents with chills and fever to 102 for a day. She also had some redness lower extremities that appeared similar to episode one month ago. She has shortness of breath and heart pounding. Blood culture 07/19 is coagulase negative staph. In June she presents to ER and had similar symptoms with fever to 102 and rash on lower extremities and was given Keflex. Episodes are more frequent and over last two years she has every other month or so. She had dark stool last month. In 2008 she had diagnosis of polymyositis and remembers this and seen by Veronica Gusman in 2020. She had methotrexate and Immuran which she didnt tolerate. She had been started on Arava leflunomide DMARD and stopped and fell out of care around 2020 possibly. Review of Systems Review of Systems: Yes all other systems are reviewed and are negative [facility] Past Medical History Medical History CKD stage 3b, GFR 30-44 ml/min Diarrhea Congestive heart failure Atrial fibrillation Septic shock Group B streptococcal bacteriuria IBS (irritable bowel syndrome) History of cellulitis Elevated cholesterol HTN (hypertension) PONV (postoperative nausea and vomiting) Colon cancer screening Eczema DVT (deep venous thrombosis) Cough Primary osteoarthritis, right hand Primary osteoarthritis, left hand Gout Polymyositis Family History Family History Mother No problems noted. Father No problems noted. 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 Cognitive needs: No Hearing needs: No Vision needs: Yes (rx glasses) Meds Allergies Allergy/AdvReac Type Severity Reaction Status Date / Time hydroxychloroquine Allergy Severe Rash Verified 07/19/25 06:02 (Plaquenil) codeine (Codeine) Allergy Intermediate NAUSEA & Verified 07/19/25 06:02 VOMITING methotrexate Allergy Intermediate Diarrhea Verified 07/19/25 06:02 oxycodone Allergy Intermediate dizziness, Verified 07/19/25 06:02 nausea, vomiting tramadol Allergy Intermediate Diarrhea Verified 07/19/25 06:02 metronidazole Allergy Unknown Vomiting Verified 07/19/25 06:02 hydromorphone (From Dilaudid) AdvReac Vomiting Verified 07/19/25 06:02 Active Medications: Current Medications Acetaminophen (Acetaminophen 325 Mg Tablet) 975 mg PO Q6H PRN PRN Reason: Pain, Severe (Pain Scale 7-10) Amiodarone HCl (Amiodarone Hcl 200 Mg Tablet) 400 mg PO BID [facility] Last Admin: 07/23/25 08:49 Dose: 400 mg Amoxicillin/Clavulanate Potassium (Amoxicillin/Potassium Clav 875 Mg Tablet) 875 mg PO Q12H [facility] Last Admin: 07/23/25 08:49 Dose: 875 mg Apixaban (Apixaban 5 Mg Tablet) 5 mg PO BID [facility] Last Admin: 07/23/25 08:49 Dose: 5 mg Aspirin (Aspirin Enteric Coated 81 Mg Tablet.Dr) 81 mg PO DAILY [facility] Last Admin: 07/23/25 08:49 Dose: 81 mg Calcium Carbonate (Calcium Carbonate 750 Mg Tab.Chew) 750 mg PO Q4H PRN PRN Reason: Heartburn Doxycycline Monohydrate (Doxycycline Monohydrate 100 Mg Capsule) 100 mg PO Q12H [facility] Last Admin: 07/23/25 08:49 Dose: 100 mg Hydrocortisone (Hydrocortisone 1 % Cream 28.35 Gm Tube) 1 appl TOPICAL BID PRN; Protocol PRN Reason: Itching Last Admin: 07/21/25 21:30 Dose: 1 appl Magnesium Hydroxide (Milk Of Magnesia 30 Ml Oral.Susp) 30 ml PO DAILY PRN PRN Reason: Constipation Melatonin (Melatonin 3 Mg Tablet) 6 mg PO BEDTIME PRN PRN Reason: Insomnia Naloxone HCl (Naloxone Hcl 0.4 Mg/Ml Vial) 0.04 mg IVPUSH Q5M PRN PRN Reason: Excessive sedation or RR < 8 Omeprazole (Omeprazole 20 Mg Capsule.) 20 mg PO BID@0630,1630 [facility] Last Admin: 07/23/25 05:34 Dose: 20 mg Ondansetron HCl (Ondansetron Hcl 4 Mg/2 Ml Vial) 4 mg IVPUSH Q8H PRN PRN Reason: Nausea and Vomiting Sodium Chloride (0.9 % Sodium Chloride Flush 3 Ml Syringe) 3 ml IVFLUSH QSHIFT [facility] Last Admin: 07/23/25 08:50 Dose: Not Given Home Medications ?Medication ?Instructions ?Recorded ?Confirmed ?Last Taken ?Type acetaminophen 650 mg 650 mg PO Q8H PRN Pain 07/21/20 07/19/25 Unknown History tablet,extended release allopurinol 100 mg tablet 100 mg PO DAILY 01/18/22 07/19/25 07/18/25 History apixaban 5 mg tablet (Eliquis) 5 mg PO BID 01/26/25 07/19/25 07/18/25 History dapagliflozin propanediol 10 mg 10 mg PO DAILY 02/25/25 07/19/25 07/18/25 History tablet (Farxiga) ferrous sulfate 325 mg (65 mg 325 mg PO DAILY 06/22/25 07/19/25 07/18/25 History iron) tablet potassium chloride 20 mEq 20 meq PO DAILY 06/22/25 07/19/25 07/18/25 History tablet,extended release cholecalciferol (vitamin D3) 50 50 mcg PO DAILY 07/19/25 07/19/25 07/18/25 History mcg (2,000 unit) capsule (Vitamin D3) furosemide 40 mg tablet 80 mg PO DAILY 07/19/25 07/19/25 07/18/25 History metoprolol succinate 50 mg 50 mg PO DAILY 07/19/25 07/19/25 07/18/25 History tablet,extended release 24 hr pantoprazole 40 mg tablet,delayed 40 mg PO DAILY@0630 07/19/25 07/19/25 07/18/25 History release vitamin B complex 1 tab PO DAILY 07/19/25 07/19/25 07/18/25 History Physical Exam Vital Signs: Vital Signs: Last Vital Signs Temp 98.0 F 07/23/25 11:31 Pulse 54 07/23/25 11:31 Resp 18 07/23/25 11:31 BP 127/74 07/23/25 11:31 Pulse Ox 94 07/23/25 11:31 O2 Del Method Room Air 07/23/25 11:31 BMI result Body Mass Index 32.3 Const: General: cooperative HEENT: Head: Yes normal to inspection Face and sinus: Yes normal facial exam Mouth: Normal oral and palatal mucosa present Teeth and gingiva: dentition normal Eyes: General: appearance normal, both eyes and all related structures Pupils: Equal, round and reactive pupils present Resp: Effort & Inspection: normal respiratory effort Cardio: Rate: regular rate Rhythm: regular rhythm GI: Palpation (GI): Soft to palpation and nontender : General: Yes no CVA tenderness Back/Spine/Pelvis: Back: no CVA tenderness Skin: General skin exam: no rashes or lesions noted Neuro: General: moves all extremities Cranial nerves: Yes Equal, round and reactive pupils present Extrem: Other: resolving redness lower extremities Psych: Appearance: grossly normal Results Labs 07/22/25 06:31 07/23/25 06:24 Labs: BMP 07/23/25 06:24 Sodium 147 H Potassium 3.2 L D Chloride 115 H Carbon Dioxide 22 BUN 16 Creatinine 0.98 Calcium 8.9 Microbiology Microbiology Results: Microbiology 07/19/25 06:12 Blood - Venous Blood Culture - Final Coag negative Staphylococcus 07/19/25 06:12 Blood - Venous Blood Culture - Preliminary No growth after 48 hours. 07/19/25 Unknown Urine clean catch - Clean Catch Midstream Urine Culture - Final Assessment and Plan (1) Polymyositis: Status: Acute Plan She has coagulase negative staph bacteremia which is a contaminant She has had Group B strep bacteremia possibly due to immunosuppression or open areas of skin 01/2025. There is no bacteremia since. This episode of fever and redness skin legs due most likely to polymyositis flares She doesnt need antibiotics at this time She needs followup with Rheumatology rosemary.
--- NOTE | 2025-07-23 12:42 | PM.EVENT ---
Event Note Date of Service: 07/23/25 Event Note: the elevated CKs are part of polymyositis as is muscle weakness and shortness of breath Time Spent With Patient Time: Total time managing care of this patient today ____ minutes.
--- NOTE | 2025-07-23 13:13 | PC.NURSE ---
Pt noted to have 3 puses on the monitor. two lasting 3.2 and the last 3.8. pt denies any symptoms associated with the pauses MD made aware. plan is to continue to monitor closely.
--- NOTE | 2025-07-23 14:33 | MHC.CM.PN ---
Pt. not ready to DC, per MD, she requires further work up. DCP: home, self care.
[2025-07-23] MEDS: 0.9 % Sodium Chloride Flush 3 ML SYRINGE IVFLUSH (15:08)
--- NOTE | 2025-07-23 15:28 | P.PNIM_ITS ---
Subjective Subjective Date of Service: 07/23/25 Interval History: sinus pauses 3.2 to 3.8 sec Review of Systems denies any new c/o Physical Exam 2 Exam: Exam: Appearance: Alert.? Oriented X3.? cvs: rrr, [id number]. res: clear to auscultation ,no rhonchii or wheezing abd: no rebound or guarding ,nt, bs present. ext pulses present , no cyanosis . neuro: axo3 , nonfocal. Vital Signs: Vital Signs: Last Vital Signs Temp 98.1 F 07/23/25 15:24 Pulse 71 07/23/25 15:24 Resp 16 07/23/25 15:24 BP 155/84 H 07/23/25 15:24 Pulse Ox 96 07/23/25 15:24 O2 Del Method Room Air 07/23/25 15:24 BMI result Body Mass Index 32.3 Objective Data Active Medications Acetaminophen (Acetaminophen 325 Mg Tablet) 975 mg PO Q6H PRN PRN Reason: Pain, Severe (Pain Scale 7-10) Amiodarone HCl (Amiodarone Hcl 200 Mg Tablet) 400 mg PO BID [facility] Last Admin: 07/23/25 08:49 Dose: 400 mg Documented By: LENY Amoxicillin/Clavulanate Potassium (Amoxicillin/Potassium Clav 875 Mg Tablet) 875 mg PO Q12H [facility] Last Admin: 07/23/25 08:49 Dose: 875 mg Documented By: LENY Apixaban (Apixaban 5 Mg Tablet) 5 mg PO BID [facility] Last Admin: 07/23/25 08:49 Dose: 5 mg Documented By: LENY Aspirin (Aspirin Enteric Coated 81 Mg Tablet.Dr) 81 mg PO DAILY [facility] Last Admin: 07/23/25 08:49 Dose: 81 mg Documented By: LENY Calcium Carbonate (Calcium Carbonate 750 Mg Tab.Chew) 750 mg PO Q4H PRN PRN Reason: Heartburn Doxycycline Monohydrate (Doxycycline Monohydrate 100 Mg Capsule) 100 mg PO Q12H [facility] Last Admin: 07/23/25 08:49 Dose: 100 mg Documented By: LENY Hydrocortisone (Hydrocortisone 1 % Cream 28.35 Gm Tube) 1 appl TOPICAL BID PRN; Protocol PRN Reason: Itching Last Admin: 07/21/25 21:30 Dose: 1 appl Documented By: ESTEFANI Magnesium Hydroxide (Milk Of Magnesia 30 Ml Oral.Susp) 30 ml PO DAILY PRN PRN Reason: Constipation Melatonin (Melatonin 3 Mg Tablet) 6 mg PO BEDTIME PRN PRN Reason: Insomnia Naloxone HCl (Naloxone Hcl 0.4 Mg/Ml Vial) 0.04 mg IVPUSH Q5M PRN PRN Reason: Excessive sedation or RR < 8 Omeprazole (Omeprazole 20 Mg Capsule.) 20 mg PO BID@0630,1630 [facility] Last Admin: 07/23/25 15:08 Dose: 20 mg Documented By: LENY Ondansetron HCl (Ondansetron Hcl 4 Mg/2 Ml Vial) 4 mg IVPUSH Q8H PRN PRN Reason: Nausea and Vomiting Sodium Chloride (0.9 % Sodium Chloride Flush 3 Ml Syringe) 3 ml IVFLUSH QSHIFT [facility] Last Admin: 07/23/25 15:08 Dose: 3 ml Documented By: LENY Labs 07/22/25 06:31 07/23/25 06:24 Labs: Laboratory Results - last 24 hr 07/22/25 07/23/25 18:05 06:24 Hold Purple Top SEE NOTE Anion Gap 13 Estim Creat Clear Calc 53.1 Estimated GFR 56 Random Glucose 78 Calcium 8.9 Vancomycin Trough 16.8 Assessment and Plan (1) Hypernatremia: Status: Acute Assessment and Plan: 69-year-old female who presented to the hospital complaining of generalized malaise, found to have severe sepsis with lactic acidosis, started on broad- spectrum antibiotics. patient developed atrial fibrillation with hypotension, requiring amiodarone infusion, plans on ANUPAM tomorrow to rule out endocarditis. Severe sepsis with lactic acidosis, likely secondary to cellulitis Leukocytosis, improving awaiting blood cultures:1/2 coagulase-negative Staph and urine cultures-mixed ANUPAM -negative for endocarditis monitor BP with goal map greater than 65 infectious disease consulted-noted hypernatremia : due to dec po intake. added po free water Suspect type 2 LA -troponin 8337->12,019.6 -TTE with hypokensis, patient underwent cath recently with no findings. -telemetry continue w/ eliquis -monitor for any signs of chest pain, shortness of breath Francisco likely multifactorial in the setting of prerenal azotemia and rhabdomyolysis, improving Rhabdomyolysis, improving -creatinine 1.4, CK 2194 -> 1179 -UA reviewed -we will continue with LR at 100 mL, status post sepsis bolus given Atrial fibrillation-AFib with a RVR and went for ANUPAM procedure -s/p metoprolol given, the patient heart rate improves-we will switch amiodarone to p.o. amiodarone, Eliquis continued patient hr was in 130's (afib)-added metoprolol. patient having pauses from 3.2 to 3.8 range Elevated T bilirubin could be secondary to decreased perfusion, ultrasound ordered to rule out cholecystitis, choledocholithiasis Us reviewed wiht positive sonographic ordonez sign, moderately distended gallbladder w/ debris Patient denies any abdominal pain. Hypokalemia Repleted and resolved. FEN: LR, replete as needed, cardiac GI PPX: Protonix DVT PPX: Eliquis and SCDs Code status: Full code Ongoing need of stay: AFib with RVR-IV amiodrip, monitor tele overnight considering today AFib with the RVR episode, monitoring renal function electrolytes. Cardio follow-up Quality Stroke Does the patient have a stroke diagnosis?: No VTE Prior VTE?: No VTE Risk Level:: Medical - moderate - high VTE Device Contraindication: N/A - Device Ordered VTE Drug Contraindication: N/A - Med Ordered
[2025-07-24] VITALS (9 sets, daily range): BP systolic 113–173; BP diastolic 56–94; PULSE 67–90; RESP 16–20; TEMP 36.2–37.2; O2SAT 86–97
--- NOTE | 2025-07-24 | ECG_ITS ---
Test Reason : HEART RHYTHM CHECK Blood Pressure : */* mmHG Vent. Rate : 70 BPM Atrial Rate : 70 BPM P-R Int : 146 ms QRS Dur : 82 ms QT Int : 448 ms P-R-T Axes : -8 38 47 degrees QTcB Int : 483 ms Normal sinus rhythm Septal infarct (cited on or before 19-Jul-2025) Abnormal ECG When compared with ECG of 23-Jul-2025 09:11, Sinus rhythm has replaced Atrial fibrillation Vent. rate has decreased by 60 bpm Nonspecific T wave abnormality no longer evident in Inferior leads Nonspecific T wave abnormality no longer evident in Lateral leads Referred By: Jason Ortega Electronically Signed By: NIKO DEY MD
[2025-07-24] MEDS: 0.9 % Sodium Chloride Flush 3 ML SYRINGE IVFLUSH ×2 (07:36→16:52)
[2025-07-24 07:44] LABS: Hematocrit 38.4 % (37.0-47.0); Hemoglobin 12.5 g/dl (12.0-16.0); Mean Corpuscular HGB Conc 32.6 g/dl (31.0-35.0); Mean Corpuscular Hemoglobin 31.3 pg (27.0-33.0); Mean Corpuscular Volume 96.2 fL (80.0-98.0); NRBC Abs Auto 0.000 X10*3/uL (0.0-0.012); NRBC Pct Auto 0.0 /100WBC (0.0-0.2); Platelet Count 184 X10*3/uL (160-400); Red Blood Count 3.99 X10*6/uL (4.20-5.50); White Blood Count 9.9 X10*3/uL (4.8-10.8)
[2025-07-24 08:01] LABS: Anion Gap 13 (12-20); Blood Urea Nitrogen 12 mg/dL (9-16); Calcium 9.3 mg/dL (8.4-10.2); Carbon Dioxide 21 mmol/L (22-29); Chloride 114 mmol/L (96-108); Creatinine Clr Calc Pharmacy 61.2; Estimated Glomerular Filt Rate > 60; Magnesium 1.6 mg/dL (1.6-2.6); Potassium 3.4 mmol/L (3.3-5.1); Sodium 145 mmol/L (135-145)
[2025-07-24] MEDS: Aspirin Enteric Coated 81 MG TABLET.DR PO (08:13)
[2025-07-24 08:28] LABS: Troponin-I High Sensitivity 281.3 ng/L (<3.5-17.0)
[2025-07-24] MEDS: Furosemide 40 MG/4 ML VIAL IVPUSH (09:12)
[2025-07-24] MEDS: guaiFENesin 200 MG/10 ML 10 ML LIQUID PO ×2 (09:24→17:00)
[2025-07-24] MEDS: Metoprolol Tartrate 12.5 MG HALFTAB PO ×2 (09:58→21:00)
--- NOTE | 2025-07-24 16:02 | HO.PM.IMPN ---
Subjective Subjective Date of Service: 07/24/25 Interval History: chf excerbation Review of Systems sob overnight and with excersion has cough dry Physical Exam Vital Signs: Vital Signs: Last Vital Signs Temp 97.4 F 07/24/25 10:40 Pulse 67 07/24/25 10:40 Resp 16 07/24/25 10:40 BP 138/92 H 07/24/25 10:40 Pulse Ox 96 07/24/25 10:40 O2 Del Method Room Air 07/24/25 10:40 BMI result Body Mass Index 32.3 Appearance: Alert.? Oriented X3.? cvs: rrr, [id number] , no murmur res: air entry diminshed ,has scattered rales at bases. abd: no rebound or guarding ,nt, bs present. ext pulses present , no cyanosis ,edema 1+. neuro: axo3 , nonfocal. Objective Data Active Medications Acetaminophen (Acetaminophen 325 Mg Tablet) 975 mg PO Q6H PRN PRN Reason: Pain, Severe (Pain Scale 7-10) Amiodarone HCl (Amiodarone Hcl 200 Mg Tablet) 400 mg PO BID [facility] Last Admin: 07/24/25 08:13 Dose: 400 mg Documented By: KENZIE Amoxicillin/Clavulanate Potassium (Amoxicillin/Potassium Clav 875 Mg Tablet) 875 mg PO Q12H [facility] Last Admin: 07/24/25 07:36 Dose: 875 mg Documented By: KENZIE Apixaban (Apixaban 5 Mg Tablet) 5 mg PO BID [facility] Last Admin: 07/24/25 08:13 Dose: 5 mg Documented By: KENZIE Aspirin (Aspirin Enteric Coated 81 Mg Tablet.) 81 mg PO DAILY [facility] Last Admin: 07/24/25 08:13 Dose: 81 mg Documented By: KENZIE Calcium Carbonate (Calcium Carbonate 750 Mg Tab.Chew) 750 mg PO Q4H PRN PRN Reason: Heartburn Doxycycline Monohydrate (Doxycycline Monohydrate 100 Mg Capsule) 100 mg PO Q12H [facility] Last Admin: 07/24/25 07:36 Dose: 100 mg Documented By: KENZIE Furosemide (Furosemide 40 Mg/4 Ml Vial) 40 mg IVPUSH DAILY [facility]; Protocol Last Admin: 07/24/25 09:12 Dose: 40 mg Documented By: KENZIE Guaifenesin (Guaifenesin 200 Mg/10 Ml 10 Ml Liquid) 10 ml PO Q4H PRN PRN Reason: Cough Last Admin: 07/24/25 09:24 Dose: 10 ml Documented By: KENZIE Hydrocortisone (Hydrocortisone 1 % Cream 28.35 Gm Tube) 1 appl TOPICAL BID PRN; Protocol PRN Reason: Itching Last Admin: 07/21/25 21:30 Dose: 1 appl Documented By: ESTEFANI Levalbuterol HCl (Levalbuterol Hcl 1.25 Mg/3 Ml Vial.Neb) 1.25 mg INHALE Q3H PRN PRN Reason: Wheezing Last Admin: 07/24/25 03:39 Dose: 1.25 mg Documented By: ANDRE Magnesium Hydroxide (Milk Of Magnesia 30 Ml Oral.Susp) 30 ml PO DAILY PRN PRN Reason: Constipation Melatonin (Melatonin 3 Mg Tablet) 6 mg PO BEDTIME PRN PRN Reason: Insomnia Last Admin: 07/23/25 20:37 Dose: 6 mg Documented By: NATALIIA Metoprolol Tartrate (Metoprolol Tartrate 12.5 Mg Halftab) 12.5 mg PO BID [facility]; Protocol Last Admin: 07/24/25 09:58 Dose: 12.5 mg Documented By: KENZIE Naloxone HCl (Naloxone Hcl 0.4 Mg/Ml Vial) 0.04 mg IVPUSH Q5M PRN PRN Reason: Excessive sedation or RR < 8 Omeprazole (Omeprazole 20 Mg Capsule.) 20 mg PO BID@0630,1630 [facility] Last Admin: 07/24/25 05:14 Dose: 20 mg Documented By: NATALIIA Ondansetron HCl (Ondansetron Hcl 4 Mg/2 Ml Vial) 4 mg IVPUSH Q8H PRN PRN Reason: Nausea and Vomiting Sodium Chloride (0.9 % Sodium Chloride Flush 3 Ml Syringe) 3 ml IVFLUSH QSHIFT [facility] Last Admin: 07/24/25 07:36 Dose: 3 ml Documented By: KENZIE Labs 07/24/25 07:03 07/24/25 07:03 Labs: Laboratory Results - last 24 hr 07/24/25 07:03 MCV 96.2 MCH 31.3 MCHC 32.6 RDW 14.7 Plt Count 184 MPV 11.1 Absolute Nucleated RBC 0.000 Nucleated RBC % (auto) 0.0 Anion Gap 13 Estim Creat Clear Calc 61.2 Estimated GFR > 60 Random Glucose 102 Calcium 9.3 Magnesium 1.6 Troponin I High Sens 281.3 H* D NT-Pro-B Natriuret Pep 93845.8 H Microbiology Microbiology Results: Microbiology 07/19/25 06:12 Blood Culture - Final Blood - Venous No growth after 5 days. Assessment and Plan (1) Congestive heart failure: Status: Acute Plan 69-year-old female who presented to the hospital complaining of generalized malaise, found to have severe sepsis with lactic acidosis, started on broad-spectrum antibiotics. patient developed atrial fibrillation with hypotension, requiring amiodarone infusion, plans on ANPUAM tomorrow to rule out endocarditis. Possible HFpEF: has sob with minimal exertion, worsening overnight,edema cxr negative Elevated [id number]-bnp [id number] Plan: Monitor I&O Daily weight IV Lasix Monitor renal function electrolyte closely because of recent JÚNIOR. Severe sepsis with lactic acidosis, likely secondary to cellulitis Leukocytosis, improving awaiting blood cultures:1/2 coagulase-negative Staph and urine cultures-mixed ANUPAM -negative for endocarditis monitor BP with goal map greater than 65 infectious disease consulted-noted hypernatremia : due to dec po intake. added po free water Suspect type 2 ND -troponin 8337->12,019.6 -TTE with hypokensis, patient underwent cath recently with no findings. -telemetry continue w/ eliquis -monitor for any signs of chest pain, shortness of breath Júnior likely multifactorial in the setting of prerenal azotemia and rhabdomyolysis, improving Rhabdomyolysis, improving -creatinine 1.4, CK 2194 -> 1179 -UA reviewed -we will continue with LR at 100 mL, status post sepsis bolus given Atrial fibrillation-AFib with a RVR and went for ANUPAM procedure Patient had bradycardia with pauses-after stopping metoprolol, seems improving Discussed with the Cardiology continue amiodarone, add small dose metoprolol Elevated T bilirubin could be secondary to decreased perfusion, ultrasound ordered to rule out cholecystitis, choledocholithiasis Us reviewed wiht positive sonographic ordonez sign, moderately distended gallbladder w/ debris Patient denies any abdominal pain. Hypokalemia Repleted and resolved. FEN: LR, replete as needed, cardiac GI PPX: Protonix DVT PPX: Eliquis and SCDs Code status: Full code Ongoing need of stay: chf execerebation-started on IV Lasix, monitor I&O, renal function electrolytes, monitor for respiratory status. Quality Stroke Does the patient have a stroke diagnosis?: No VTE Prior VTE?: No VTE Risk Level:: Medical - moderate - high VTE Device Contraindication: N/A - Device Ordered VTE Drug Contraindication: N/A - Med Ordered
--- NOTE | 2025-07-24 17:39 | PC.NURSE ---
increased sob, torey wheezing, Xopenex administered, MD Ortega assessed pt at the bedside , PLAN; diuretic, steroids
[2025-07-24] MEDS: Furosemide 20 MG/2 ML VIAL IVPUSH (18:15)
[2025-07-25] VITALS (7 sets, daily range): BP systolic 123–176; BP diastolic 65–95; PULSE 63–93; RESP 16–18; TEMP 36.5–36.9; O2SAT 91–96; BMI 35.0
[2025-07-25] MEDS: guaiFENesin 200 MG/10 ML 10 ML LIQUID PO ×3 (06:43→20:08)
[2025-07-25 08:14] LABS: Anion Gap 13 (12-20); Blood Urea Nitrogen 12 mg/dL (9-16); Calcium 9.1 mg/dL (8.4-10.2); Carbon Dioxide 23 mmol/L (22-29); Chloride 110 mmol/L (96-108); Creatinine Clr Calc Pharmacy 60.9; Estimated Glomerular Filt Rate > 60; Potassium 3.4 mmol/L (3.3-5.1); Sodium 143 mmol/L (135-145)
[2025-07-25] MEDS: Aspirin Enteric Coated 81 MG TABLET.DR PO (09:09)
[2025-07-25] MEDS: Metoprolol Tartrate 12.5 MG HALFTAB PO ×2 (09:10→20:05)
[2025-07-25] MEDS: 0.9 % Sodium Chloride Flush 3 ML SYRINGE IVFLUSH ×2 (09:11→20:11)
[2025-07-25 12:57] LABS: Chlamydia pneumoniae PCR Not Detected (Not Detect.); Coronavirus 229E PCR Not Detected (Not Detect.); Coronavirus HKU1 PCR Not Detected (Not Detect.); Coronavirus NL63 PCR Not Detected (Not Detect.); Coronavirus OC43 PCR Not Detected (Not Detect.); RSV PCR Not Detected (Not Detect.); Rhino/Enterovirus PCR Not Detected (Not Detect.); SARS-CoV-2 PCR Not Detected (Not Detect.)
[2025-07-25] MEDS: Furosemide 40 MG/4 ML VIAL IVPUSH (13:12)
--- NOTE | 2025-07-25 14:31 | P.PNIM_ITS ---
Subjective Subjective Date of Service: 07/25/25 Interval History: chf execerbation Review of Systems sob seems little improving, has cough no fevers Review of Systems: Yes all other systems are reviewed and are negative Physical Exam 2 Exam: Exam: Appearance: Alert.? Oriented X3.? cvs: rrr, [id number] , no murmur res: air entry diminshed ,has scattered rales at bases. abd: no rebound or guarding ,nt, bs present. ext pulses present , no cyanosis ,edema 1+. neuro: axo3 , nonfocal. Vital Signs: Vital Signs: Last Vital Signs Temp 98.1 F 07/25/25 12:00 Pulse 71 07/25/25 12:00 Resp 18 07/25/25 12:00 BP 134/74 07/25/25 13:12 Pulse Ox 96 07/25/25 12:00 O2 Del Method Room Air 07/25/25 12:00 BMI result Body Mass Index 35.0 Objective Data Active Medications Acetaminophen (Acetaminophen 325 Mg Tablet) 975 mg PO Q6H PRN PRN Reason: Pain, Severe (Pain Scale 7-10) Last Admin: 07/24/25 20:59 Dose: 975 mg Documented By: DAYANARA Amiodarone HCl (Amiodarone Hcl 200 Mg Tablet) 400 mg PO BID [facility] Last Admin: 07/25/25 09:10 Dose: 400 mg Documented By: LELAND Apixaban (Apixaban 5 Mg Tablet) 5 mg PO BID [facility] Last Admin: 07/25/25 09:09 Dose: 5 mg Documented By: LELAND Aspirin (Aspirin Enteric Coated 81 Mg Tablet.) 81 mg PO DAILY [facility] Last Admin: 07/25/25 09:09 Dose: 81 mg Documented By: LELAND Benzonatate (Benzonatate 100 Mg Capsule) 100 mg PO TID PRN PRN Reason: Cough Last Admin: 07/25/25 09:46 Dose: 100 mg Documented By: LELAND Calcium Carbonate (Calcium Carbonate 750 Mg Tab.Chew) 750 mg PO Q4H PRN PRN Reason: Heartburn Furosemide (Furosemide 40 Mg/4 Ml Vial) 40 mg IVPUSH DAILY [facility]; Protocol Last Admin: 07/25/25 13:12 Dose: 40 mg Documented By: [email or web address] Guaifenesin (Guaifenesin 200 Mg/10 Ml 10 Ml Liquid) 10 ml PO Q4H PRN PRN Reason: Cough Last Admin: 07/25/25 06:43 Dose: 10 ml Documented By: DAYANARA Hydrocortisone (Hydrocortisone 1 % Cream 28.35 Gm Tube) 1 appl TOPICAL BID PRN; Protocol PRN Reason: Itching Last Admin: 07/21/25 21:30 Dose: 1 appl Documented By: ESTEFANI Levalbuterol HCl (Levalbuterol Hcl 1.25 Mg/3 Ml Vial.Neb) 1.25 mg INHALE Q3H PRN PRN Reason: Wheezing Last Admin: 07/24/25 17:43 Dose: 1.25 mg Documented By: JERAMIE Magnesium Hydroxide (Milk Of Magnesia 30 Ml Oral.Susp) 30 ml PO DAILY PRN PRN Reason: Constipation Melatonin (Melatonin 3 Mg Tablet) 6 mg PO BEDTIME PRN PRN Reason: Insomnia Last Admin: 07/24/25 20:59 Dose: 6 mg Documented By: DAYANARA Metoprolol Tartrate (Metoprolol Tartrate 12.5 Mg Halftab) 12.5 mg PO BID [facility]; Protocol Last Admin: 07/25/25 09:10 Dose: 12.5 mg Documented By: LELAND Naloxone HCl (Naloxone Hcl 0.4 Mg/Ml Vial) 0.04 mg IVPUSH Q5M PRN PRN Reason: Excessive sedation or RR < 8 Omeprazole (Omeprazole 20 Mg Capsule.) 20 mg PO BID@0630,1630 [facility] Last Admin: 07/25/25 06:39 Dose: 20 mg Documented By: DAYANARA Ondansetron HCl (Ondansetron Hcl 4 Mg/2 Ml Vial) 4 mg IVPUSH Q8H PRN PRN Reason: Nausea and Vomiting Last Admin: 07/24/25 17:37 Dose: 4 mg Documented By: KENZIE Sodium Chloride (0.9 % Sodium Chloride Flush 3 Ml Sy[facility]) [facility] Admin: 07/25/25 09:11 Dose: 3 ml Documented By: LELAND Labs 07/24/25 07:03 07/25/25 07:05 Labs: Laboratory Results - last 24 hr 07/25/25 07/25/25 07:05 11:08 Anion Gap 13 Estim Creat Clear Calc 60.9 Estimated GFR > 60 Random Glucose 113 Calcium 9.1 NT-Pro-B Natriuret Pep 06367.0 H Influenza Type A (PCR) Cancelled Influenza Type B (PCR) Cancelled RSV RNA Qual (PCR) Cancelled SARS-CoV-2 RNA (RT-PCR) Cancelled Assessment and Plan (1) Congestive heart failure: Status: Acute Plan 69-year-old female who presented to the hospital complaining of generalized malaise, found to have severe sepsis with lactic acidosis, started on broad- spectrum antibiotics. patient developed atrial fibrillation with hypotension, requiring amiodarone infusion, plans on ANUPAM tomorrow to rule out endocarditis. Possible HFpEF: has sob with minimal exertion, worsening overnight,edema cxr negative Elevated nt-bnp [id number] Plan: Monitor I&O: 13.5 /3.6 liters Daily weight IV Lasix( need to diures her slowly-Monitor renal function electrolyte closely because of recent FRANCISCO.) Severe sepsis with lactic acidosis, likely secondary to cellulitis Leukocytosis, improving awaiting blood cultures:1/2 coagulase-negative Staph and urine cultures-mixed ANUPAM -negative for endocarditis monitor BP with goal map greater than 65 infectious disease consulted-noted:coagulase negative staph bacteremia which is a contaminant. There is no bacteremia since. This episode of fever and redness skin legs due most likely to polymyositis flares She doesnt need antibiotics at this time She needs followup with Rheumatology outpatient. hypernatremia : due to dec po intake. added po free water Suspect type 2 [place] -troponin 8337->12,019.6 -TTE with hypokensis, patient underwent cath recently with no findings. -telemetry continue w/ eliquis -monitor for any signs of chest pain, shortness of breath Francisco likely multifactorial in the setting of prerenal azotemia and rhabdomyolysis, improving Rhabdomyolysis, improving -creatinine 1.4, CK 2194 -> 1179 -UA reviewed -we will continue with LR at 100 mL, status post sepsis bolus given Atrial fibrillation-AFib with a RVR and went for ANUPAM procedure Patient had bradycardia with pauses-after stopping metoprolol, seems improving Discussed with the Cardiology continue amiodarone, add small dose metoprolol Elevated T bilirubin could be secondary to decreased perfusion, ultrasound ordered to rule out cholecystitis, choledocholithiasis Us reviewed wiht positive sonographic ordonez sign, moderately distended gallbladder w/ debris Patient denies any abdominal pain. Hypokalemia Repleted and resolved. FEN: LR, replete as needed, cardiac GI PPX: Protonix DVT PPX: Eliquis and SCDs Code status: Full code Ongoing need of stay: chf execerebation-started on IV Lasix, monitor I&O, renal function electrolytes, monitor for respiratory status. Quality Stroke Does the patient have a stroke diagnosis?: No VTE Prior VTE?: No VTE Risk Level:: Medical - moderate - high VTE Device Contraindication: N/A - Device Ordered VTE Drug Contraindication: N/A - Med Ordered
[2025-07-25 14:44] LABS: Influenza A H1 PCR Not Detected (Not Detect.); Influenza A H1-2009 PCR Not Detected (Not Detect.); Influenza A H3 PCR Not Detected (Not Detect.)
[2025-07-26] VITALS (8 sets, daily range): BP systolic 121–166; BP diastolic 60–98; PULSE 68–147; RESP 18–22; TEMP 36.5–38.1; O2SAT 91–95; BMI 35.0
[2025-07-26] MEDS: guaiFENesin 200 MG/10 ML 10 ML LIQUID PO ×2 (01:18→14:37)
--- NOTE | 2025-07-26 01:19 | PM.EVENT ---
Event Note Date of Service: 07/26/25 Event Note: Contacted to notify that patient is started to have rapid AFib again, not sustaining, and spiking a fever 100.5. We will repeat blood and urine cultures and restart empiric IV antibiotic therapy with vancomycin and ceftriaxone. We will also obtain lactic acid and give Tylenol for fever. Time Spent With Patient Time: Total time managing care of this patient today ____ minutes.
[2025-07-26 02:17] LABS: Appearance Urine Clear; Glucose Urine UA Negative (Negative); PH 6.0 (5.0-9.0); Specific Gravity - Urine 1.015 (1.005-1.025); UMIC TRIGGER UACC YES
[2025-07-26] MEDS: vancomycin/NS 2,000 MG/500 ML PLAST..BAG 250 MG IV (03:06)
[2025-07-26 07:35] LABS: Hematocrit 35.1 % (37.0-47.0); Hemoglobin 11.3 g/dl (12.0-16.0); Mean Corpuscular HGB Conc 32.2 g/dl (31.0-35.0); Mean Corpuscular Hemoglobin 31.1 pg (27.0-33.0); Mean Corpuscular Volume 96.7 fL (80.0-98.0); NRBC Abs Auto 0.000 X10*3/uL (0.0-0.012); NRBC Pct Auto 0.0 /100WBC (0.0-0.2); Platelet Count 203 X10*3/uL (160-400); Red Blood Count 3.63 X10*6/uL (4.20-5.50); White Blood Count 4.5 X10*3/uL (4.8-10.8)
[2025-07-26 07:44] LABS: Anion Gap 14 (12-20); Blood Urea Nitrogen 14 mg/dL (9-16); Calcium 8.6 mg/dL (8.4-10.2); Carbon Dioxide 23 mmol/L (22-29); Chloride 109 mmol/L (96-108); Creatinine Clr Calc Pharmacy 62.3; Estimated Glomerular Filt Rate > 60; Potassium 3.0 mmol/L (3.3-5.1); Sodium 143 mmol/L (135-145)
--- NOTE | 2025-07-26 07:48 | PHA.PROG ---
Admission Date/Time: July 19, 2025 10:35 Indication: bacteremia Weight in k.7 kg Adjusted body weight in Kg: [place] body weight in Kg: Obesity Dosing Indication % IBW: BMI 35.0 Serum Creatinine - Last 168 Hours 07/20/25 07/21/25 07/22/25 04:12 07:03 06:31 Creatinine 1.21 0.98 1.01 07/23/25 07/24/25 07/25/25 06:24 07:03 07:05 Creatinine 0.98 0.85 0.89 07/26/25 07:06 Creatinine 0.87 Estimated CrCl and GFR - Last 168 Hours 07/20/25 07/21/25 07/22/25 04:12 07:03 06:31 Estim Creat Clear Calc 42.3 53.1 51.5 Estimated GFR 44 56 54 07/23/25 07/24/25 07/25/25 06:24 07:03 07:05 Estim Creat Clear Calc 53.1 61.2 60.9 Estimated GFR 56 > 60 > 60 07/26/25 07:06 Estim Creat Clear Calc 62.3 Estimated GFR > 60 Vancomycin Loading Dose: 2000mg X1 Current Vancomycin Dosing Regimen: 750mg Q12H Vancomycin Monitoring using AUC goal of 400 - 600 range with trough as surrogate marker: 445 Date and Time for next Vancomycin Level to be drawn: 07/27 @1300. Pt's renal is fine, BMI high, starting with 750mg Q12H to target trough of 14.9. Pt was on vanco a couple days ago getting 500mg Q12H with therapeutic troughs. To be adjusted once patient is back in range. Vancomycin Trough 16.8 mcg/mL (10.0-20.0) 07/22/25 18:05 Pharmacist Comments on Vancomycin Plan: Vancomycin dosing will take advantage of [employer] as a clinical decision support tool that uses Bayesian modeling to calculate individual patient's pharmacokinetic parameters and forecast the patient's drug concentration time course with the target goal AUC 24 range of 400 - 600 mg/L/hr.
[2025-07-26] MEDS: Aspirin Enteric Coated 81 MG TABLET.DR PO (08:03)
[2025-07-26] MEDS: 0.9 % Sodium Chloride Flush 3 ML SYRINGE IVFLUSH ×2 (08:03→14:46)
[2025-07-26] MEDS: Furosemide 40 MG/4 ML VIAL IVPUSH (08:04)
[2025-07-26] MEDS: Metoprolol Tartrate 12.5 MG HALFTAB PO ×2 (08:04→22:44)
[2025-07-26] MEDS: Potassium Chloride ER 20 MEQ TAB.ER.PRT 40 MEQ PO (09:43)
--- NOTE | 2025-07-26 14:46 | P.PNID_ITS ---
Subjective Subjective Date of Service: 07/26/25 Critical Care Time (minutes): 15 Comment: she had temperature to 100.5 last night and atrial fibrillation blood cultures pending Objective Data Labs 07/26/25 07:06 07/26/25 07:06 Labs: Laboratory Results - last 24 hr 07/26/25 07/26/25 07/26/25 01:53 02:10 07:06 WBC 4.5 L RBC 3.63 L Hgb 11.3 L Hct 35.1 L MCV 96.7 MCH 31.1 MCHC 32.2 RDW 15.0 Plt Count 203 MPV 10.7 Absolute Nucleated RBC 0.000 Nucleated RBC % (auto) 0.0 Sodium 143 Potassium 3.0 L Chloride 109 H Carbon Dioxide 23 Anion Gap 14 BUN 14 Creatinine 0.87 Estim Creat Clear Calc 62.3 Estimated GFR > 60 Random Glucose 87 Lactic Acid 1.1 Calcium 8.6 NT-Pro-B Natriuret Pep 24922.5 H Urine Color Yellow Urine Appearance Clear Urine pH 6.0 Ur Specific [place] 1.015 Urine Protein 300 (3+) H Urine Glucose (UA) Negative Urine Ketones Negative Urine Blood Small (1+) H Urine Nitrite Negative Ur Leukocyte Esterase Negative Urine RBC 0-2 Urine WBC 0-5 Ur Squamous Epith Cells 0-2 Urine Bacteria None Seen Hyaline Casts 0-2 Microbiology Microbiology Results: Microbiology 07/19/25 06:12 Blood - Venous Blood Culture - Final No growth after 5 days. 07/19/25 06:12 Blood - Venous Blood Culture - Final Coag negative Staphylococcus 07/19/25 Unknown Urine clean catch - Clean Catch Midstream Urine Culture - Final Physical Exam 2 Vital Signs: Vital Signs: Last Vital Signs Temp 98.8 F 07/26/25 12:00 Pulse 72 07/26/25 12:00 Resp 20 07/26/25 12:00 BP 154/85 H 07/26/25 12:00 Pulse Ox 92 07/26/25 12:00 O2 Del Method Room Air 07/26/25 12:00 BMI result Body Mass Index 35.0 Const: General: cooperative HEENT: Head: Yes normal to inspection Face and sinus: Yes normal facial exam Mouth: Normal oral and palatal mucosa present Teeth and gingiva: d entition normal Eyes: General: appearance normal, both eyes and all related structures P upils: Equal, round and reactive pupils present Resp: Effort & Inspection: normal respiratory effort Cardio: Rate: regular rate Rhythm: regular rhythm GI: Palpation (GI): Soft to palpation and nontender : General: Yes no CVA tenderness Back/Spine/Pelvis: Back: no CVA tenderness Skin: General skin exam: no rashes or lesions noted Neuro: General: moves all extremities Cranial nerves: Yes Equal, round and reactive pupils present Extrem: General: Yes normal to inspection Psych: Appearance: grossly normal Assessment and Plan Assessment and plan (1) Polymyositis: Problem details: she has fever,hopefully not getting pneumonia fever from polymyositis also Status: Acute Plan Repeat CXR and check procalcitonin Would stop antibiotics (Ceftriaxone and Vancomycin) if blood culture ,CXR and procalcitonin normal. Please set up Rheumatology outpatient Time Spent With Patient Time: Total time managing care of this patient today ____ minutes.
--- NOTE | 2025-07-26 15:18 | P.PNIM_ITS ---
Subjective Subjective Date of Service: 07/26/25 Interval History: Overnight events noted: Patient fever and and likely episode of tachycardia with that. Denies any new complaint this morning, shortness of breath improving Review of Systems Review of Systems: Yes all other systems are reviewed and are negative Physical Exam 2 Exam: Exam: Appearance: Alert.? Oriented X3.? cvs: rrr, [id number] , no murmur res: air entry diminshed ,has scattered rales at bases. abd: no rebound or guarding ,nt, bs present. ext pulses present , no cyanosis ,edema 1+. neuro: axo3 , nonfocal. Vital Signs: Vital Signs: Last Vital Signs Temp 98.8 F 07/26/25 12:00 Pulse 72 07/26/25 12:00 Resp 20 07/26/25 12:00 BP 154/85 H 07/26/25 12:00 Pulse Ox 92 07/26/25 12:00 O2 Del Method Room Air 07/26/25 12:00 BMI result Body Mass Index 35.0 Objective Data Active Medications Acetaminophen (Acetaminophen 325 Mg Tablet) 975 mg PO Q6H PRN PRN Reason: Fever Last Admin: 07/26/25 01:16 Dose: 975 mg Documented By: SHELL Amiodarone HCl (Amiodarone Hcl 200 Mg Tablet) 400 mg PO BID [facility] Last Admin: 07/26/25 08:03 Dose: 400 mg Documented By: MARYANNE Apixaban (Apixaban 5 Mg Tablet) 5 mg PO BID [facility] Last Admin: 07/26/25 08:04 Dose: 5 mg Documented By: MARYANNE Aspirin (Aspirin Enteric Coated 81 Mg Tablet.) 81 mg PO DAILY [facility] Last Admin: 07/26/25 08:03 Dose: 81 mg Documented By: MARYANNE Benzonatate (Benzonatate 100 Mg Capsule) 100 mg PO TID PRN PRN Reason: Cough Last Admin: 07/26/25 14:37 Dose: 100 mg Documented By: MARYANNE Calcium Carbonate (Calcium Carbonate 750 Mg Tab.Chew) 750 mg PO Q4H PRN PRN Reason: Heartburn Furosemide (Furosemide 40 Mg Tablet) 40 mg PO DAILY [facility]; Protocol Last Admin: 07/26/25 08:45 Dose: Not Given Documented By: MARYANNE Non-Admin Reason: Administered by Alternate Route Guaifenesin (Guaifenesin 200 Mg/10 Ml 10 Ml Liquid) 10 ml PO Q4H PRN PRN Reason: Cough Last Admin: 07/26/25 14:37 Dose: 10 ml Documented By: MARYANNE Hydrocortisone (Hydrocortisone 1 % Cream 28.35 Gm Tube) 1 appl TOPICAL BID PRN; Protocol PRN Reason: Itching Last Admin: 07/21/25 21:30 Dose: 1 appl Documented By: ESTEFANI Ceftriaxone Sodium 1 gm/ (Sodium Chloride) 50 mls @ 100 mls/hr IV BEDTIME [facility] Last Infusion: 07/26/25 02:57 Dose: Infused Documented By: SHELL Vancomycin HCl 750 mg/ Sodium (Chloride) 265 mls @ 265 mls/hr IV Q12H [facility] Last Admin: 07/26/25 14:38 Dose: 265 mls/hr Documented By: MARYANNE Levalbuterol HCl (Levalbuterol Hcl 1.25 Mg/3 Ml Vial.Neb) 1.25 mg INHALE Q3H PRN PRN Reason: Wheezing Last Admin: 07/24/25 17:43 Dose: 1.25 mg Documented By: JERAMIE Magnesium Hydroxide (Milk Of Magnesia 30 Ml Oral.Susp) 30 ml PO DAILY PRN PRN Reason: Constipation Melatonin (Melatonin 3 Mg Tablet) 6 mg PO BEDTIME PRN PRN Reason: Insomnia Last Admin: 07/25/25 20:07 Dose: 6 mg Documented By: SHELL Metoprolol Tartrate (Metoprolol Tartrate 12.5 Mg Halftab) 12.5 mg PO BID [facility]; Protocol Last Admin: 07/26/25 08:04 Dose: 12.5 mg Documented By: MARYANNE Naloxone HCl (Naloxone Hcl 0.4 Mg/Ml Vial) 0.04 mg IVPUSH Q5M PRN PRN Reason: Excessive sedation or RR < 8 Omeprazole (Omeprazole 20 Mg Capsule.) 20 mg PO BID@0630,1630 [facility] Last Admin: 07/26/25 06:11 Dose: 20 mg Documented By: SHELL Ondansetron HCl (Ondansetron Hcl 4 Mg/2 Ml Vial) 4 mg IVPUSH Q8H PRN PRN Reason: Nausea and Vomiting Last Admin: 07/24/25 17:37 Dose: 4 mg Documented By: KENZIE Pharmacy Consult (Consult Rx Vancomycin Dosing) 1 each MISCELLANE DAILY PRN PRN Reason: Consult order Sodium Chloride (0.9 % Sodium Chloride Flush 3 Ml Syringe) 3 ml IVFLUSH [facility] Last Admin: 07/26/25 14:46 Dose: 3 ml Documented By: MARYANNE Labs 07/26/25 07:06 07/26/25 07:06 Labs: Laboratory Results - last 24 hr 07/26/25 07/26/25 07/26/25 01:53 02:10 07:06 MCV 96.7 MCH 31.1 MCHC 32.2 RDW 15.0 Plt Count 203 MPV 10.7 Absolute Nucleated RBC 0.000 Nucleated RBC % (auto) 0.0 Anion Gap 14 Estim Creat Clear Calc 62.3 Estimated GFR > 60 Random Glucose 87 Lactic Acid 1.1 Calcium 8.6 NT-Pro-B Natriuret Pep 84161.5 H Urine Color Yellow Urine Appearance Clear Urine pH 6.0 Ur Specific [place] 1.015 Urine Protein 300 (3+) H Urine Glucose (UA) Negative Urine Ketones Negative Urine Blood Small (1+) H Urine Nitrite Negative Ur Leukocyte Esterase Negative Urine RBC 0-2 Urine WBC 0-5 Ur Squamous Epith Cells 0-2 Urine Bacteria None Seen Hyaline Casts 0-2 Assessment and Plan (1) Congestive heart failure: Status: Acute Plan 69-year-old female who presented to the hospital complaining of generalized malaise, found to have severe sepsis with lactic acidosis, started on broad- spectrum antibiotics. patient developed atrial fibrillation with hypotension, requiring amiodarone infusion, plans on ANUPAM tomorrow to rule out endocarditis. Possible HFpEF: has sob with minimal exertion, worsening overnight,edema cxr negative Elevated nt-bnp [id number] Plan: Monitor I&O: 13.5 /3.6 liters Daily weight IV Lasix( need to diures her slowly-Monitor renal function electrolyte closely because of recent FRANCISCO.) Severe sepsis with lactic acidosis, likely secondary to cellulitis Leukocytosis, improving awaiting blood cultures:1/2 coagulase-negative Staph and urine cultures-mixed ANUPAM -negative for endocarditis monitor BP with goal map greater than 65 infectious disease consulted-noted:coagulase negative staph bacteremia which is a contaminant. There is no bacteremia since. This episode of fever and redness skin legs due most likely to polymyositis flares She doesnt need antibiotics at this time She needs followup with Rheumatology outpatient. now with new fever/tachycardia : Respiratory viral panel negative, blood cultures sent overnight. Patient is started on vanco and cerebral ceftriaxone. Seen by infectious disease: Added chest x-ray, procalcitonin level, wait for blood cultures hypernatremia : due to dec po intake. Improved Suspect type 2 [place] -troponin 8337->12,019.6 -TTE with hypokensis, patient underwent cath recently with no findings. -telemetry continue w/ eliquis -monitor for any signs of chest pain, shortness of breath [place] likely multifactorial in the setting of prerenal azotemia and rhabdomyolysis, improving Rhabdomyolysis, improving -creatinine 1.4, CK 2194 -> 1179 -UA reviewed -we will continue with LR at 100 mL, status post sepsis bolus given Atrial fibrillation-AFib with a RVR and went for ANUPAM procedure Patient had bradycardia with pauses-which improved. Last night episode of AFib likely related with fever, we will continue to monitor. Discussed with the Cardiology continue amiodarone, add small dose metoprolol Elevated T bilirubin could be secondary to decreased perfusion, ultrasound ordered to rule out cholecystitis, choledocholithiasis Us reviewed wiht positive sonographic ordonez sign, moderately distended gallbladder w/ debris Patient denies any abdominal pain. Hypokalemia Repleted and resolved. FEN: LR, replete as needed, cardiac GI PPX: Protonix DVT PPX: Eliquis and SCDs Code status: Full code Ongoing need of stay: fuo: Workup and blood culture pending, patient's IV antibiotics- renal function electrolytes, monitor for respiratory status. Quality Stroke Does the patient have a stroke diagnosis?: No VTE Prior VTE?: No VTE Risk Level:: Medical - moderate - high VTE Device Contraindication: N/A - Device Ordered VTE Drug Contraindication: N/A - Med Ordered
--- NOTE | 2025-07-26 16:18 | MHC.CM.PN ---
PER MD ROUNDS, PT NOT MEDICALLY CLEAR, BC PENDING
[2025-07-26 17:08] LABS: Procalcitonin 0.28 ng/mL
[2025-07-26 17:12] LABS: Magnesium 1.4 mg/dL (1.6-2.6)
[2025-07-26] MEDS: Potassium Chloride ER 20 MEQ TAB.ER.PRT PO (17:25)
[2025-07-26] MEDS: Magnesium Sulfate/H2O 2 GM/50 ML PIGGYBACK IV (17:26)
--- NOTE | 2025-07-26 18:39 | PC.NURSE ---
Mag infusion delayed by one hour d/t clamped tube.
--- NOTE | 2025-07-26 18:39 | PC.NURSE ---
Pt A&O x4. She has been ambulating to toilet with stand by assist for safety. Using inspirometer regularly. Lungs sounds have worsened over the shift, audible wheezes noted. Dry, barking cough improved only minimally with robitussin and tessalon maritza. Pt denies pain. Reports that she has just been fatigued all day, r/t poor sleep in hospital.
[2025-07-27] VITALS (8 sets, daily range): BP systolic 103–142; BP diastolic 58–82; PULSE 55–76; RESP 18–20; TEMP 36.2–36.7; O2SAT 94–98; BMI 32.8
[2025-07-27] MEDS: Furosemide 40 MG/4 ML VIAL IVPUSH (00:40)
[2025-07-27] MEDS: Albuterol/Iprat 2.5/0.5MG 3 ML AMPUL.NEB INHALE (00:41)
[2025-07-27] MEDS: 0.9 % Sodium Chloride Flush 3 ML SYRINGE IVFLUSH ×4 (00:42→22:34)
[2025-07-27 07:37] LABS: Creatinine Clr Calc Pharmacy 69.5; Estimated Glomerular Filt Rate > 60
[2025-07-27] MEDS: Aspirin Enteric Coated 81 MG TABLET.DR PO (08:11)
[2025-07-27] MEDS: Metoprolol Tartrate 12.5 MG HALFTAB PO ×2 (08:11→22:29)
[2025-07-27 08:15] LABS: Anion Gap 15 (12-20); Blood Urea Nitrogen 13 mg/dL (9-16); Calcium 8.2 mg/dL (8.4-10.2); Carbon Dioxide 27 mmol/L (22-29); Chloride 104 mmol/L (96-108); Magnesium 1.6 mg/dL (1.6-2.6); Potassium 3.0 mmol/L (3.3-5.1); Sodium 143 mmol/L (135-145)
[2025-07-27] MEDS: Potassium Chloride ER 20 MEQ TAB.ER.PRT 40 MEQ PO (09:51)
--- NOTE | 2025-07-27 17:58 | HO.PM.IMPN ---
Subjective Subjective Date of Service: 07/27/25 Interval History: pneumonia Review of Systems Shortness of breaths somewhat improving, has cough. Review of Systems: Yes all other systems are reviewed and are negative Physical Exam Exam: Exam: Appearance: Alert.? Oriented X3.? cvs: rrr, [id number] , no murmur res: air entry diminshed ,has scattered rales at bases. abd: no rebound or guarding ,nt, bs present. ext pulses present , no cyanosis ,edema 1+. neuro: axo3 , nonfocal. Vital Signs: Vital Signs: Last Vital Signs Temp 97.5 F 07/27/25 14:56 Pulse 62 07/27/25 14:56 Resp 18 07/27/25 14:56 BP 103/58 L 07/27/25 14:56 Pulse Ox 96 07/27/25 14:56 O2 Del Method Nasal Cannula 07/27/25 14:56 O2 Flow Rate 1 07/27/25 14:56 BMI result Body Mass Index 32.8 Objective Data Active Medications Acetaminophen (Acetaminophen 325 Mg Tablet) 975 mg PO Q6H PRN PRN Reason: Fever Last Admin: 07/26/25 01:16 Dose: 975 mg Documented By: SHELL Albuterol/Ipratropium (Albuterol/Iprat 2.5/0.5mg 3 Ml Ampul.Neb) 3 ml INHALE RQ4H WHILE AWAKE PRN PRN Reason: Shortness of Breath Last Admin: 07/27/25 00:41 Dose: 3 ml Documented By: SIERRA Amiodarone HCl (Amiodarone Hcl 200 Mg Tablet) 400 mg PO BID [facility] Last Admin: 07/27/25 08:11 Dose: 400 mg Documented By: NICKY Apixaban (Apixaban 5 Mg Tablet) 5 mg PO BID [facility] Last Admin: 07/27/25 08:11 Dose: 5 mg Documented By: NICKY Aspirin (Aspirin Enteric Coated 81 Mg Tablet.) 81 mg PO DAILY [facility] Last Admin: 07/27/25 08:11 Dose: 81 mg Documented By: NICKY Benzonatate (Benzonatate 100 Mg Capsule) 100 mg PO TID PRN PRN Reason: Cough Last Admin: 07/26/25 22:44 Dose: 100 mg Documented By: SIERRA Calcium Carbonate (Calcium Carbonate 750 Mg Tab.Chew) 750 mg PO Q4H PRN PRN Reason: Heartburn Furosemide (Furosemide 40 Mg Tablet) 40 mg PO BID@0900,1800 [facility]; Protocol Last Admin: 07/27/25 16:32 Dose: 40 mg Documented By: NICKY Guaifenesin (Guaifenesin 200 Mg/10 Ml 10 Ml Liquid) 10 ml PO Q4H PRN PRN Reason: Cough Last Admin: 07/26/25 14:37 Dose: 10 ml Documented By: MARYANNE Hydrocortisone (Hydrocortisone 1 % Cream 28.35 Gm Tube) 1 appl TOPICAL BID PRN; Protocol PRN Reason: Itching Last Admin: 07/21/25 21:30 Dose: 1 appl Documented By: ESTEFANI Ceftriaxone Sodium 1 gm/ (Sodium Chloride) 50 mls @ 100 mls/hr IV BEDTIME [facility] Last Infusion: 07/26/25 23:22 Dose: Infused Documented By: SIERRA Vancomycin HCl 500 mg/ Sodium (Chloride) 110 mls @ 110 mls/hr IV Q12H [facility] Last Admin: 07/27/25 16:31 Dose: 110 mls/hr Documented By: NICKY Levalbuterol HCl (Levalbuterol Hcl 1.25 Mg/3 Ml Vial.Neb) 1.25 mg INHALE Q3H PRN PRN Reason: Wheezing Last Admin: 07/26/25 23:20 Dose: 1.25 mg Documented By: SIERRA Magnesium Hydroxide (Milk Of Magnesia 30 Ml Oral.Susp) 30 ml PO DAILY PRN PRN Reason: Constipation [facility] ([facility] Mg [facility]) [facility] Last Admin: 07/27/25 16:32 Dose: 400 mg Documented By: NICKY Melatonin (Melatonin 3 Mg Tablet) 6 mg PO BEDTIME PRN PRN Reason: Insomnia Last Admin: 07/26/25 22:44 Dose: 6 mg Documented By: SIERRA Metoprolol Tartrate (Metoprolol Tartrate 12.5 Mg Halftab) 12.5 mg PO BID [facility]; Protocol Last Admin: 07/27/25 08:11 Dose: 12.5 mg Documented By: NICKY Metoprolol Tartrate (Metoprolol Tartrate 5 Mg/5 Ml Vial) 5 mg IVPUSH Q6H PRN; Protocol PRN Reason: Heart Rate >100 Naloxone HCl (Naloxone Hcl 0.4 Mg/Ml Vial) 0.04 mg IVPUSH Q5M PRN PRN Reason: Excessive sedation or RR < 8 Omeprazole (Omeprazole 20 Mg Capsule.Dr) 20 mg PO BID@0630,1630 [facility] Last Admin: 07/27/25 16:31 Dose: 20 mg Documented By: NICKY Ondansetron HCl (Ondansetron Hcl 4 Mg/2 Ml Vial) 4 mg IVPUSH Q8H PRN PRN Reason: Nausea and Vomiting Last Admin: 07/24/25 17:37 Dose: 4 mg Documented By: KENZIE Pharmacy Consult (Consult Rx Vancomycin Dosing) 1 each MISCELLANE DAILY PRN PRN Reason: Consult order Potassium Chloride (Potassium Chloride Packet 20 Meq Packet) 20 meq PO DAILY [facility] Sodium Chloride (0.9 % Sodium Chloride Flush 3 Ml Syringe) 3 ml IVFLUSH QSHIFT [facility] Last Admin: 07/27/25 16:42 Dose: 3 ml Documented By: NICKY Labs 07/26/25 07:06 07/27/25 06:45 Labs: Laboratory Results - last 24 hr 07/27/25 07/27/25 06:45 12:51 Hold Purple Top SEE NOTE Anion Gap 15 Estim Creat Clear Calc 69.5 Estimated GFR > 60 Random Glucose 74 Calcium 8.2 L Magnesium 1.6 Random Vancomycin 19.4 Microbiology Microbiology Results: Microbiology 07/26/25 01:53 Blood Culture - Preliminary Blood - Venous No growth after 24 hours. 07/26/25 01:53 Blood Culture - Preliminary Blood - Venous No growth after 24 hours. Assessment and Plan (1) Congestive heart failure: Status: Acute Plan 69-year-old female who presented to the hospital complaining of generalized malaise, found to have severe sepsis with lactic acidosis, started on broad-spectrum antibiotics. patient developed atrial fibrillation with hypotension, requiring amiodarone infusion, plans on ANUPAM tomorrow to rule out endocarditis. pnauemonia: CXR-? pneumonia and check procalcitonin: 0.28 Would stop antibiotics (Ceftriaxone and Vancomycin) if blood culture ,CXR and procalcitonin normal. id eval noted-continue iv antibiotic, monitor blood cultures. Possible HFpEF: has sob with minimal exertion, worsening overnight,edema cxr negative Elevated nt-bnp [id number] Plan: sob improivng Monitor I&O Daily weight switch IV Lasix to po, moniter bmp,bnp. Acute hypokalemia: Repleted. Monitor BMP Severe sepsis with lactic acidosis, likely secondary to cellulitis Leukocytosis, improving awaiting blood cultures:1/2 coagulase-negative Staph and urine cultures-mixed ANUPAM -negative for endocarditis monitor BP with goal map greater than 65 infectious disease consulted-noted:coagulase negative staph bacteremia which is a contaminant. There is no bacteremia since. This episode of fever and redness skin legs due most likely to polymyositis flares She doesnt need antibiotics at this time She needs followup with Rheumatology outpatient. now with new fever/tachycardia : Respiratory viral panel negative, blood cultures sent overnight. Patient is started on vanco and cerebral ceftriaxone. Seen by infectious disease: Added chest x-ray, procalcitonin level, wait for blood cultures hypernatremia : due to dec po intake. Improved Suspect type 2 AL -troponin 8337->12,019.6 -TTE with hypokensis, patient underwent cath recently with no findings. -telemetry continue w/ eliquis -monitor for any signs of chest pain, shortness of breath Francisco likely multifactorial in the setting of prerenal azotemia and rhabdomyolysis, improving Rhabdomyolysis, improving -creatinine 1.4, CK 2194 -> 1179 -UA reviewed -we will continue with LR at 100 mL, status post sepsis bolus given Atrial fibrillation-AFib with a RVR and went for ANUPAM procedure Patient had bradycardia with pauses(07/23)which improved. Last night episode of AFib likely related with fever, we will continue to monitor. Discussed with the Cardiology continue amiodarone, metoprolol low dose . Elevated T bilirubin could be secondary to decreased perfusion, ultrasound ordered to rule out cholecystitis, choledocholithiasis Us reviewed wiht positive sonographic ordonez sign, moderately distended gallbladder w/ debris Patient denies any abdominal pain. Hypokalemia Repleted and resolved. FEN: LR, replete as needed, cardiac GI PPX: Protonix DVT PPX: Eliquis and SCDs Code status: Full code Ongoing need of stay: fuo/penumonia: blood culture pending, patient's IV antibiotics- renal function electrolytes, monitor for respiratory status. Quality Stroke Does the patient have a stroke diagnosis?: No VTE Prior VTE?: No VTE Risk Level:: Medical - moderate - high VTE Device Contraindication: N/A - Device Ordered VTE Drug Contraindication: N/A - Med Ordered
--- NOTE | 2025-07-27 18:11 | P.CDIM_ITS ---
PROVIDER RESPONSE TEXT: To clarify, the appropriate diagnosis supported by the clinical indicators: Hypomagnesemia QUERY TEXT: PHYSICIAN'S DOCUMENTATION REQUEST Date of Query: 07/27/2025 10:42 AM EST Patient Name: Karol Frias Admit Date: 07/19/2025 Dear Jason Ortega MD, A review of the medical record indicates additional documentation may be needed. Please review below and update the documentation accordingly. Clinical Indicators: LABS: Magnesium 1.4 L IV Magnesium Sulfate Progress note 07/26/25 - Acute hypokalemia, added p.o. potassium, magnesium level added. Based on the above, is there a diagnosis that correlates with these lab findings? Hypomagnesemia Labs indicate a diagnosis of (please specify) Other (explain) Clinically unable to determine (explain) Thank you, Brooke Lynn, CCS, CDIS Use of terms such as suspected, likely, concern for, or probable (associated with a specific diagnosis that is being evaluated, monitored, or treated as if it exists) are acceptable and can be coded in the inpatient setting, when documented at the time of discharge. Please use your independent medical judgment in providing your response. THIS QUERY IS PART OF THE PERMANENT MEDICAL RECORD
[2025-07-28 03:31] VITALS: BP 128/87; PULSE 64; RESP 20; TEMP 36.4; O2SAT 95
[2025-07-28 06:00] VITALS: BMI 33.0
[2025-07-28 07:13] LABS: Anion Gap 11 (12-20); Blood Urea Nitrogen 14 mg/dL (9-16); Calcium 8.3 mg/dL (8.4-10.2); Carbon Dioxide 30 mmol/L (22-29); Chloride 104 mmol/L (96-108); Creatinine Clr Calc Pharmacy 62.4; Estimated Glomerular Filt Rate > 60; Potassium 3.2 mmol/L (3.3-5.1); Sodium 142 mmol/L (135-145)
[2025-07-28 07:25] VITALS: BP 119/73; PULSE 61; RESP 18; TEMP 36.4; O2SAT 95
[2025-07-28] MEDS: Aspirin Enteric Coated 81 MG TABLET.DR PO (09:31)
[2025-07-28] MEDS: 0.9 % Sodium Chloride Flush 3 ML SYRINGE IVFLUSH ×3 (09:31→21:05)
[2025-07-28] MEDS: Potassium Chloride Packet 20 MEQ PACKET PO (09:32)
[2025-07-28] MEDS: Metoprolol Tartrate 12.5 MG HALFTAB PO ×2 (09:32→21:03)
[2025-07-28 11:12] VITALS: BP 119/73; PULSE 55; RESP 18; TEMP 36.3; O2SAT 97
--- NOTE | 2025-07-28 11:24 | MHC.CM.PN ---
EMR REVIEWED, PT W/BILAT PLEURAL EFFUSIONS AND MULTILOBULAR CONSOLDATIONS/PNA, PT WILL REMAIN INPT FOR TX OF IV ABX, P.T. RECOMMENDED HOME W/SERIVCES, VNA REF PLACED, CM WILL CONT TO FOLLOW DC NEEDS.
--- NOTE | 2025-07-28 12:45 | P.PNIM_ITS ---
Subjective Subjective Date of Service: 07/28/25 Interval History: no fevers today Physical Exam 2 Exam: Exam: Appearance: Alert.? Oriented X3.? cvs: rrr, [id number] , no murmur res: air entry diminshed ,has scattered rales at bases. abd: no rebound or guarding ,nt, bs present. ext pulses present , no cyanosis ,edema 1+. neuro: axo3 , nonfocal. Vital Signs: Vital Signs: Last Vital Signs Temp 97.4 F 07/28/25 11:12 Pulse 55 07/28/25 11:12 Resp 18 07/28/25 11:12 BP 119/73 07/28/25 11:12 Pulse Ox 97 07/28/25 11:12 O2 Del Method Room Air 07/28/25 11:12 O2 Flow Rate 1 07/27/25 14:56 BMI result Body Mass Index 33.0 Objective Data Active Medications Acetaminophen (Acetaminophen 325 Mg Tablet) 975 mg PO Q6H PRN PRN Reason: Fever Last Admin: 07/26/25 01:16 Dose: 975 mg Documented By: SHELL Albuterol/Ipratropium (Albuterol/Iprat 2.5/0.5mg 3 Ml Ampul.Neb) 3 ml INHALE RQ4H WHILE AWAKE PRN PRN Reason: Shortness of Breath Last Admin: 07/27/25 00:41 Dose: 3 ml Documented By: SIERRA Amiodarone HCl (Amiodarone Hcl 200 Mg Tablet) 400 mg PO BID [facility] Last Admin: 07/28/25 09:31 Dose: 400 mg Documented By: LILLIE Apixaban (Apixaban 5 Mg Tablet) 5 mg PO BID [facility] Last Admin: 07/28/25 09:32 Dose: 5 mg Documented By: LILLIE Aspirin (Aspirin Enteric Coated 81 Mg Tablet.) 81 mg PO DAILY [facility] Last Admin: 07/28/25 09:31 Dose: 81 mg Documented By: LILLIE Benzonatate (Benzonatate 100 Mg Capsule) 100 mg PO TID PRN PRN Reason: Cough Last Admin: 07/27/25 22:30 Dose: 100 mg Documented By: SIERRA Calcium Carbonate (Calcium Carbonate 750 Mg Tab.Chew) 750 mg PO Q4H PRN PRN Reason: Heartburn Furosemide (Furosemide 40 Mg Tablet) 40 mg PO BID@0900,1800 [facility]; Protocol Last Admin: 07/28/25 09:31 Dose: 40 mg Documented By: LILLIE Guaifenesin (Guaifenesin 200 Mg/10 Ml 10 Ml Liquid) 10 ml PO Q4H PRN PRN Reason: Cough Last Admin: 07/26/25 14:37 Dose: 10 ml Documented By: MARYANNE Hydrocortisone (Hydrocortisone 1 % Cream 28.35 Gm Tube) 1 appl TOPICAL BID PRN; Protocol PRN Reason: Itching Last Admin: 07/21/25 21:30 Dose: 1 appl Documented By: ESTEFANI Ceftriaxone Sodium 1 gm/ (Sodium Chloride) 50 mls @ 100 mls/hr IV BEDTIME [facility] Last Infusion: 07/28/25 00:03 Dose: Infused Documented By: SIERRA Vancomycin HCl 500 mg/ Sodium (Chloride) 110 mls @ 110 mls/hr IV Q12H [facility] Last Infusion: 07/28/25 03:58 Dose: Infused Documented By: SIERRA Levalbuterol HCl (Levalbuterol Hcl 1.25 Mg/3 Ml Vial.Neb) 1.25 mg INHALE Q3H PRN PRN Reason: Wheezing Last Admin: 07/26/25 23:20 Dose: 1.25 mg Documented By: SIERRA Magnesium Hydroxide (Milk Of Magnesia 30 Ml Oral.Susp) 30 ml PO DAILY PRN PRN Reason: Constipation [facility] Last Admin: 07/28/25 09:31 Dose: 400 mg Documented By: LILLIE Melatonin (Melatonin 3 Mg Tablet) 6 mg PO BEDTIME PRN PRN Reason: Insomnia Last Admin: 07/27/25 22:30 Dose: 6 mg Documented By: SIERRA Metoprolol Tartrate (Metoprolol Tartrate 12.5 Mg Halftab) 12.5 mg PO BID [facility]; Protocol Last Admin: 07/28/25 09:32 Dose: 12.5 mg Documented By: LILLIE Metoprolol Tartrate (Metoprolol Tartrate 5 Mg/5 Ml Vial) 5 mg IVPUSH Q6H PRN; Protocol PRN Reason: Heart Rate >100 Naloxone HCl (Naloxone Hcl 0.4 Mg/Ml Vial) 0.04 mg IVPUSH Q5M PRN PRN Reason: Excessive sedation or RR < 8 Omeprazole (Omeprazole 20 Mg Dillan.) 20 mg PO BID@0630,1630 [facility] Last Admin: 07/28/25 05:45 Dose: 20 mg Documented By: SIERRA Ondansetron HCl (Ondansetron Hcl 4 Mg/2 Ml Vial) 4 mg IVPUSH Q8H PRN PRN Reason: Nausea and Vomiting Last Admin: 07/24/25 17:37 Dose: 4 mg Documented By: KENZIE Pharmacy Consult (Consult Rx Vancomycin Dosing) 1 each MISCELLANE DAILY PRN PRN Reason: Consult order Potassium Chloride (Potassium Chloride Packet 20 Meq Packet) 20 meq PO DAILY [facility] Last Admin: 07/28/25 09:32 Dose: 20 meq Documented By: LILLIE Sodium Chloride (0.9 % Sodium Chloride Flush 3 Ml Syringe) 3 ml IVFLUSH QSHIFT [facility] Last Admin: 07/28/25 09:31 Dose: 3 ml Documented By: LILLIE Labs 07/26/25 07:06 07/28/25 06:06 Labs: Laboratory Results - last 24 hr 07/27/25 07/28/25 12:51 06:06 Hold Purple Top SEE NOTE Anion Gap 11 L Estim Creat Clear Calc 62.4 Estimated GFR > 60 Random Glucose 70 Calcium 8.3 L NT-Pro-B Natriuret Pep 8251.5 H Random Vancomycin 19.4 Microbiology Microbiology Results: Microbiology 07/26/25 01:53 Blood Culture - Preliminary Blood - Venous No growth after 48 hours. 07/26/25 01:53 Blood Culture - Preliminary Blood - Venous No growth after 48 hours. Assessment and Plan (1) HTN (hypertension): Status: Acute Plan 69F PMH Paroxysmal AFib, group B strep bacteremia, rheumatoid arthritis, hypertension, chronic diastolic CHF with [id number] aortic stenosis, presented with weakness and fevers severe sepsis due to right-sided pneumonia continue vancomycin ceftriaxone as CT chest showing right lower lobe opacity with large right effusion and left moderate effusion pulmonary eval ? need for thoracentesis acute on chronic diastolic CHF diuresed with IV Lasix, now back on p.o. acute hypokalemia and acute hypomagnesemia symptomatic replace and monitor acute hypernatremia resolved NSTEMI demand ischemia continue Eliquis paroxysmal atrial fibrillation with RVR continue amiodarone load, apixaban acute kidney injury resolved with IV fluids DVT prophylaxis on apixaban full code reason for continued hospitalization:iv abx, pulm eval, montioring for fevers Quality Stroke Does the patient have a stroke diagnosis?: No VTE Prior VTE?: No VTE Risk Level:: Medical - moderate - high VTE Device Contraindication: N/A - Device Ordered VTE Drug Contraindication: N/A - Med Ordered
--- NOTE | 2025-07-28 14:45 | HE.PHANOTE ---
Re Vanc Trough therapeutic but higher than projected. Will recheck in 24 hours and make sure this is a safe regimen for them.
--- NOTE | 2025-07-28 15:56 | PM.CNPUL ---
History of Present Illness History of Present Illness Consult date: 07/28/25 Chief complaint: Bilateral pleural effusions Narrative: 69-year-old lady with underlying CKD, diastolic heart failure, AFib, rheumatoid arthritis admitted on 07/19/2025 with malaise. Patient was treated for possible bacteremia that appears to be a skin contaminant. CT chest was obtained that showed increasing bilateral pleural effusions compared to her CT chest in January of 2025. She is also approximately 9 L positive since admission. Patient denies cough or sputum production or significant dyspnea. Review of Systems Constitutional: Constitutional: Denies daytime sleepiness, Denies excessive sweating, Denies fatigue, Denies fever(s), Denies lethargy, Denies malaise, Denies night sweats, Denies snoring and Denies weight loss Eyes: Eyes: Denies blurry vision and Denies itchy eyes ENT: Denies nasal congestion, Denies post nasal drip, Denies sinus pain, Denies sinus pressure and Denies other ( Thrush) Cardiovascular: Cardiovascular: Denies chest pain, Denies pedal edema, Denies dyspnea, Denies orthopnea and Denies paroxysmal nocturnal dyspnea Respiratory: Respiratory: Denies cough, Denies hemoptysis, Denies excessive phlegm production, Denies dyspnea, Denies snoring and Denies wheezing Gastrointestinal: Gastrointestinal: Denies abdominal pain and Denies heartburn Musculoskeletal: Musculoskeletal: Denies myalgias, Denies arthralgias and Denies joint swelling Integumentary/Breasts: Skin/Breast: Denies rash Neurologic: Denies memory loss and Denies seizure-like activity Psychiatric: Psychiatric: Denies abnormal sleep pattern, Denies anxiety and Denies memory loss Endocrine: Endocrine: Denies excessive sweating, Denies fatigue and Denies heat intolerance Hematologic/Lymphatic: Hematologic/Lymphatic: Denies easy bruising Allergic/Immunologic: Allergic/Immunologic: Denies itchy eyes, Denies seasonal rhinorrhea and Denies wheezing PMFSH Past Medical History Medical History CKD stage 3b, GFR 30-44 ml/min Diarrhea Congestive heart failure Atrial fibrillation Septic shock Group B streptococcal bacteriuria IBS (irritable bowel syndrome) History of cellulitis Elevated cholesterol HTN (hypertension) PONV (postoperative nausea and vomiting) Colon cancer screening Eczema DVT (deep venous thrombosis) Cough Primary osteoarthritis, right hand Primary osteoarthritis, left hand Gout Polymyositis Family History Family History Mother No problems noted. Father No problems noted. 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 Cognitive needs: No Hearing needs: No Vision needs: Yes (rx glasses) Meds Allergies Allergy/AdvReac Type Severity Reaction Status Date / Time hydroxychloroquine Allergy Severe Rash Verified 07/19/25 06:02 (Plaquenil) codeine (Codeine) Allergy Intermediate NAUSEA & Verified 07/19/25 06:02 VOMITING methotrexate Allergy Intermediate Diarrhea Verified 07/19/25 06:02 oxycodone Allergy Intermediate dizziness, Verified 07/19/25 06:02 nausea, vomiting tramadol Allergy Intermediate Diarrhea Verified 07/19/25 06:02 metronidazole Allergy Unknown Vomiting Verified 07/19/25 06:02 hydromorphone (From Dilaudid) AdvReac Vomiting Verified 07/19/25 06:02 Active Medications: Current Medications Acetaminophen (Acetaminophen 325 Mg Tablet) 975 mg PO Q6H PRN PRN Reason: Fever Last Admin: 07/26/25 01:16 Dose: 975 mg Albuterol/Ipratropium (Albuterol/Iprat 2.5/0.5mg 3 Ml Ampul.Neb) 3 ml INHALE RQ4H WHILE AWAKE PRN PRN Reason: Shortness of Breath Last Admin: 07/27/25 00:41 Dose: 3 ml Amiodarone HCl (Amiodarone Hcl 200 Mg Tablet) 400 mg PO BID GOOD Last Admin: 07/28/25 09:31 Dose: 400 mg Apixaban (Apixaban 5 Mg Tablet) 5 mg PO BID [facility] Last Admin: 07/28/25 09:32 Dose: 5 mg Aspirin (Aspirin Enteric Coated 81 Mg Tablet.Dr) 81 mg PO DAILY [facility] Last Admin: 07/28/25 09:31 Dose: 81 mg Benzonatate (Benzonatate 100 Mg Capsule) 100 mg PO TID PRN PRN Reason: Cough Last Admin: 07/27/25 22:30 Dose: 100 mg Calcium Carbonate (Calcium Carbonate 750 Mg Tab.Chew) 750 mg PO Q4H PRN PRN Reason: Heartburn Furosemide (Furosemide 40 Mg Tablet) 40 mg PO BID@0900,1800 [facility]; Protocol Last Admin: 07/28/25 09:31 Dose: 40 mg Guaifenesin (Guaifenesin 200 Mg/10 Ml 10 Ml Liquid) 10 ml PO Q4H PRN PRN Reason: Cough Last Admin: 07/26/25 14:37 Dose: 10 ml Hydrocortisone (Hydrocortisone 1 % Cream 28.35 Gm Tube) 1 appl TOPICAL BID PRN; Protocol PRN Reason: Itching Last Admin: 07/21/25 21:30 Dose: 1 appl Ceftriaxone Sodium 1 gm/ (Sodium Chloride) 50 mls @ 100 mls/hr IV BEDTIME [facility] Last Infusion: 07/28/25 00:03 Dose: Infused Vancomycin HCl 500 mg/ Sodium (Chloride) 110 mls @ 110 mls/hr IV Q12H [facility] Last Admin: 07/28/25 15:03 Dose: 110 mls/hr Levalbuterol HCl (Levalbuterol Hcl 1.25 Mg/3 Ml Vial.Neb) 1.25 mg INHALE Q3H PRN PRN Reason: Wheezing Last Admin: 07/26/25 23:20 Dose: 1.25 mg Magnesium Hydroxide (Milk Of Magnesia 30 Ml Oral.Susp) 30 ml PO DAILY PRN PRN Reason: Constipation Magnesium Oxide (Magnesium Oxide 400 Mg Tablet) 400 mg PO BIDPC [facility] Last Admin: 07/28/25 09:31 Dose: 400 mg Melatonin (Melatonin 3 Mg Tablet) 6 mg PO BEDTIME PRN PRN Reason: Insomnia Last Admin: 07/27/25 22:30 Dose: 6 mg Metoprolol Tartrate (Metoprolol Tartrate 12.5 Mg Halftab) 12.5 mg PO BID [facility]; Protocol Last Admin: 07/28/25 09:32 Dose: 12.5 mg Metoprolol Tartrate (Metoprolol Tartrate 5 Mg/5 Ml Vial) 5 mg IVPUSH Q6H PRN; Protocol PRN Reason: Heart Rate >100 Naloxone HCl (Naloxone Hcl 0.4 Mg/Ml Vial) 0.04 mg IVPUSH Q5M PRN PRN Reason: Excessive sedation or RR < 8 Omeprazole (Omeprazole 20 Mg Capsule.Dr) 20 mg PO BID@0630,1630 [facility] Last Admin: 07/28/25 05:45 Dose: 20 mg Ondansetron HCl (Ondansetron Hcl 4 Mg/2 Ml Vial) 4 mg IVPUSH Q8H PRN PRN Reason: Nausea and Vomiting Last Admin: 07/24/25 17:37 Dose: 4 mg Pharmacy Consult (Consult Rx Vancomycin Dosing) 1 each MISCELLANE DAILY PRN PRN Reason: Consult order Potassium Chloride (Potassium Chloride Packet 20 Meq Packet) 20 meq PO DAILY [facility] Last Admin: 07/28/25 09:32 Dose: 20 meq Sodium Chloride (0.9 % Sodium Chloride Flush 3 Ml Syringe) 3 ml IVFLUSH QSHIFT [facility] Last Admin: 07/28/25 09:31 Dose: 3 ml Home Medications ?Medication ?Instructions ?Recorded ?Confirmed ?Last Taken ?Type acetaminophen 650 mg 650 mg PO Q8H PRN Pain 07/21/20 07/19/25 Unknown History tablet,extended release allopurinol 100 mg tablet 100 mg PO DAILY 01/18/22 07/19/25 07/18/25 History apixaban 5 mg tablet (Eliquis) 5 mg PO BID 01/26/25 07/19/25 07/18/25 History dapagliflozin propanediol 10 mg 10 mg PO DAILY 02/25/25 07/19/25 07/18/25 History tablet (Farxiga) ferrous sulfate 325 mg (65 mg 325 mg PO DAILY 06/22/25 07/19/25 07/18/25 History iron) tablet potassium chloride 20 mEq 20 meq PO DAILY 06/22/25 07/19/25 07/18/25 History tablet,extended release cholecalciferol (vitamin D3) 50 50 mcg PO DAILY 07/19/25 07/19/25 07/18/25 History mcg (2,000 unit) capsule (Vitamin D3) furosemide 40 mg tablet 80 mg PO DAILY 07/19/25 07/19/25 07/18/25 History metoprolol succinate 50 mg 50 mg PO DAILY 07/19/25 07/19/25 07/18/25 History tablet,extended release 24 hr pantoprazole 40 mg tablet,delayed 40 mg PO DAILY@0630 07/19/25 07/19/25 07/18/25 History release vitamin B complex 1 tab PO DAILY 07/19/25 07/19/25 07/18/25 History Physical Exam Vital Signs: Vital Signs: Last Vital Signs Temp 97.4 F 07/28/25 11:12 Pulse 55 07/28/25 11:12 Resp 18 07/28/25 11:12 BP 119/73 07/28/25 11:12 Pulse Ox 97 07/28/25 11:12 O2 Del Method Room Air 07/28/25 11:12 O2 Flow Rate 1 07/27/25 14:56 BMI result Body Mass Index 33.0 Const: General: no acute distress and alert Nutritional Appearance: not obese Orientation/consciousness: Other orientation findings ( oriented) HEENT: Head: Yes atraumatic Eyes: General: appearance normal, both eyes and all related structures Sclerae: sclerae normal EOM: EOMs intact bilaterally Neck: Neck: Yes supple Lymphatic: no lymphadenopathy noted Resp: Effort & Inspection: normal respiratory effort and no use of accessory muscles Auscultation: clear to auscultation bilaterally Cardio: Rate: regular rate Rhythm: regular rhythm Heart sounds: no gallops, no murmurs and no rubs GI: Palpation (GI): Soft to palpation and Other GI palpation findings present ( Nontender) Auscultation: normal bowel sounds Skin: General skin exam: other ( warm) Extrem: General: No clubbing and No cyanosis Results Laboratory Findings 07/26/25 07:06 07/28/25 06:06 ABG, PT/INR, D-dimer: PT/INR, D-dimer PT 17.6 SEC (11.2-13.5) H 07/21/25 07:03 INR 1.5 (0.9-1.1) H 07/21/25 07:03 Abnormal lab findings: Abnormal Labs 07/19/25 07/19/25 07/19/25 06:12 08:40 10:10 WBC 27.1 H RBC Hgb Hct MCV Plt Count Immature Gran % (Auto) 1.3 H Neut % (Auto) 91.5 H Lymph % (Auto) 1.6 L Lymph # (Auto) 0.4 L [place] # (Auto) 1.4 H Abs Immat Gran (auto) 0.34 H Absolute Neuts (auto) 24.8 H PT INR aPTT Heparin Protocol Sodium Potassium 3.0 L D Chloride Carbon Dioxide Anion Gap BUN 33 H Creatinine 1.42 H Random Glucose 148 H Lactic Acid 3.1 H* Lactic Acid F/U @ 2Hr 3.7 H* Lactic Acid F/U @ 4Hr Calcium 10.3 H Magnesium Total Bilirubin 1.5 H AST 85 H Total Creatine Kinase 2194 H Troponin I High Sens 8337.7 H* D C-Reactive Protein 9.88 H NT-Pro-B Natriuret Pep Lipase 6 L Urine Protein 30 (1+) H Urine Glucose (UA) 500 H Urine Blood Small (1+) H Ur Leukocyte Esterase Small (1+) H 07/19/25 07/19/25 07/20/25 12:03 18:40 04:12 WBC 11.5 H RBC 3.64 L D Hgb 11.5 L Hct 35.5 L MCV Plt Count 140 L D Immature Gran % (Auto) Neut % (Auto) Lymph % (Auto) Lymph # (Auto) [place] # (Auto) Abs Immat Gran (auto) Absolute Neuts (auto) PT INR aPTT Heparin Protocol Sodium Potassium Chloride 109 H Carbon Dioxide Anion Gap BUN 32 H Creatinine Random Glucose Lactic Acid Lactic Acid F/U @ 2Hr Lactic Acid F/U @ 4Hr 3.8 H* Calcium Magnesium 1.5 L Total Bilirubin AST Total Creatine Kinase 1179 H Troponin I High Sens 08541.6 H* C-Reactive Protein NT-Pro-B Natriuret Pep Lipase Urine Protein Urine Glucose (UA) Urine Blood Ur Leukocyte Esterase 07/20/25 07/21/25 07/22/25 08:37 07:03 06:31 WBC 11.0 H RBC 4.02 L 3.71 L 3.86 L Hgb 11.6 L Hct 36.6 L MCV 98.7 H Plt Count 147 L 130 L Immature Gran % (Auto) Neut % (Auto) Lymph % (Auto) Lymph # (Auto) [place] # (Auto) Abs Immat Gran (auto) Absolute Neuts (auto) PT 14.9 H 17.6 H INR 1.2 H 1.5 H aPTT Heparin Protocol 30.8 L D Sodium Potassium Chloride 115 H 114 H Carbon Dioxide 20 L 19 L Anion Gap BUN 20 H 18 H Creatinine Random Glucose Lactic Acid Lactic Acid F/U @ 2Hr Lactic Acid F/U @ 4Hr Calcium Magnesium Total Bilirubin AST Total Creatine Kinase Troponin I High Sens C-Reactive Protein NT-Pro-B Natriuret Pep Lipase Urine Protein Urine Glucose (UA) Urine Blood Ur Leukocyte Esterase 07/23/25 07/24/25 07/25/25 06:24 07:03 07:05 WBC RBC 3.99 L Hgb Hct MCV Plt Count Immature Gran % (Auto) Neut % (Auto) Lymph % (Auto) Lymph # (Auto) [place] # (Auto) Abs Immat Gran (auto) Absolute Neuts (auto) PT INR aPTT Heparin Protocol Sodium 147 H Potassium 3.2 L D Chloride 115 H 114 H 110 H Carbon Dioxide 21 L Anion Gap BUN Creatinine Random Glucose Lactic Acid Lactic Acid F/U @ 2Hr Lactic Acid F/U @ 4Hr Calcium Magnesium Total Bilirubin AST Total Creatine Kinase Troponin I High Sens 281.3 H* D C-Reactive Protein NT-Pro-B Natriuret Pep 46862.8 H 09867.0 H Lipase Urine Protein Urine Glucose (UA) Urine Blood Ur Leukocyte Esterase 07/26/25 07/26/25 07/27/25 02:10 07:06 06:45 WBC 4.5 L RBC 3.63 L Hgb 11.3 L Hct 35.1 L MCV Plt Count Immature Gran % (Auto) Neut % (Auto) Lymph % (Auto) Lymph # (Auto) [place] # (Auto) Abs Immat Gran (auto) Absolute Neuts (auto) PT INR aPTT Heparin Protocol Sodium Potassium 3.0 L 3.0 L Chloride 109 H Carbon Dioxide Anion Gap BUN Creatinine Random Glucose Lactic Acid Lactic Acid F/U @ 2Hr Lactic Acid F/U @ 4Hr Calcium 8.2 L Magnesium 1.4 L* Total Bilirubin AST Total Creatine Kinase Troponin I High Sens C-Reactive Protein NT-Pro-B Natriuret Pep 65560.5 H Lipase Urine Protein 300 (3+) H Urine Glucose (UA) Urine Blood Small (1+) H Ur Leukocyte Esterase 07/28/25 06:06 WBC RBC Hgb Hct MCV Plt Count Immature Gran % (Auto) Neut % (Auto) Lymph % (Auto) Lymph # (Auto) [place] # (Auto) Abs Immat Gran (auto) Absolute Neuts (auto) PT INR aPTT Heparin Protocol Sodium Potassium 3.2 L Chloride Carbon Dioxide 30 H Anion Gap 11 L BUN Creatinine Random Glucose Lactic Acid Lactic Acid F/U @ 2Hr Lactic Acid F/U @ 4Hr Calcium 8.3 L Magnesium Total Bilirubin AST Total Creatine Kinase Troponin I High Sens C-Reactive Protein NT-Pro-B Natriuret Pep 8251.5 H Lipase Urine Protein Urine Glucose (UA) Urine Blood Ur Leukocyte Esterase Microbiology: Microbiology 07/26/25 01:53 Blood - Venous Blood Culture - Preliminary No growth after 48 hours. 07/26/25 01:53 Blood - Venous Blood Culture - Preliminary No growth after 48 hours. 07/19/25 06:12 Blood - Venous Blood Culture - Final No growth after 5 days. 07/19/25 06:12 Blood - Venous Blood Culture - Final Coag negative Staphylococcus 07/19/25 Unknown Urine clean catch - Clean Catch Midstream Urine Culture - Final Assessment and Plan (1) Chronic bilateral pleural effusions: Status: Acute Plan Impression: 69-year-old lady admitted with fevers and malaise, with essentially negative workup so far, only 1 blood culture out of multiple growing Staphylococcus epidermidis which is likely a skin contaminant. Also underlying CKD, known bilateral pleural effusions, now worsened follow-up CT chest, and with significant positive fluid balance. Bilateral pleural effusions appear to be chronic and an unlikely source to patient's present in fever. No cough, sputum production, dyspnea or hypoxemia. Patient is also not interested in thoracentesis. Recommendations: At this time would advise against thoracentesis, particularly considering patient's unwillingness, as bilateral pleural effusions and unlikely source of the patient's initial fevers. She has no evidence of pneumonia. Would consider additional diuresis. Procedures Date of Service Date of Service: 07/28/25
[2025-07-28 16:00] VITALS: BP 113/63; PULSE 59; RESP 18; TEMP 36.2; O2SAT 94
--- NOTE | 2025-07-28 17:35 | P.PNID_ITS ---
Subjective Subjective Date of Service: 07/28/25 Critical Care Time (minutes): 15 Comment: patient feels well wants to leave Objective Data Labs 07/26/25 07:06 07/28/25 06:06 Labs: Laboratory Results - last 24 hr 07/28/25 07/28/25 06:06 13:19 Hold Purple Top SEE NOTE Sodium 142 Potassium 3.2 L Chloride 104 Carbon Dioxide 30 H Anion Gap 11 L BUN 14 Creatinine 0.84 Estim Creat Clear Calc 62.4 Estimated GFR > 60 Random Glucose 70 Calcium 8.3 L NT-Pro-B Natriuret Pep 8251.5 H Random Vancomycin 17.5 Microbiology Microbiology Results: Microbiology 07/26/25 01:53 Blood - Venous Blood Culture - Preliminary No growth after 48 hours. 07/26/25 01:53 Blood - Venous Blood Culture - Preliminary No growth after 48 hours. 07/19/25 06:12 Blood - Venous Blood Culture - Final No growth after 5 days. 07/19/25 06:12 Blood - Venous Blood Culture - Final Coag negative Staphylococcus 07/19/25 Unknown Urine clean catch - Clean Catch Midstream Urine Culture - Final Physical Exam 2 Vital Signs: Vital Signs: Last Vital Signs Temp 97.2 F 07/28/25 16:00 Pulse 59 07/28/25 16:00 Resp 18 07/28/25 16:00 BP 113/63 07/28/25 16:00 Pulse Ox 94 07/28/25 16:00 O2 Del Method Room Air 07/28/25 16:00 O2 Flow Rate 1 07/27/25 14:56 BMI result Body Mass Index 33.0 Const: General: cooperative HEENT: Head: Yes normal to inspection Face and sinus: Yes normal facial exam Mouth: Normal oral and palatal mucosa present Teeth and gingiva: d entition normal Eyes: General: appearance normal, both eyes and all related structures P upils: Equal, round and reactive pupils present Resp: Effort & Inspection: normal respiratory effort Cardio: Rate: regular rate Rhythm: regular rhythm GI: Palpation (GI): Soft to palpation and nontender : General: Yes no CVA tenderness Back/Spine/Pelvis: Back: no CVA tenderness Skin: General skin exam: no rashes or lesions noted Neuro: General: moves all extremities Cranial nerves: Yes Equal, round and reactive pupils present Extrem: General: Yes normal to inspection Psych: Appearance: grossly normal Assessment and Plan Assessment and plan (1) Polymyositis: Problem details: procalcitonin .28 low CXR pleural effusions only Status: Acute Assessment and Plan: Stop antibiotics Rheumatology followup outpatient. Time Spent With Patient Time: Total time managing care of this patient today ____ minutes.
[2025-07-28 19:19] VITALS: BP 138/75; PULSE 63; RESP 16; TEMP 36.4; O2SAT 95
[2025-07-28 23:39] VITALS: BP 132/66; PULSE 60; RESP 18; TEMP 36.4; O2SAT 93
[2025-07-29 02:53] VITALS: BP 128/70; PULSE 62; RESP 18; TEMP 36.4; O2SAT 92
[2025-07-29 06:00] VITALS: BMI 32.6
[2025-07-29 07:08] LABS: Hematocrit 39.1 % (37.0-47.0); Hemoglobin 12.4 g/dl (12.0-16.0); Mean Corpuscular HGB Conc 31.7 g/dl (31.0-35.0); Mean Corpuscular Hemoglobin 30.7 pg (27.0-33.0); Mean Corpuscular Volume 96.8 fL (80.0-98.0); NRBC Abs Auto 0.000 X10*3/uL (0.0-0.012); NRBC Pct Auto 0.0 /100WBC (0.0-0.2); Platelet Count 202 X10*3/uL (160-400); Red Blood Count 4.04 X10*6/uL (4.20-5.50); White Blood Count 4.3 X10*3/uL (4.8-10.8)
[2025-07-29 07:12] VITALS: BP 135/72; PULSE 59; RESP 18; TEMP 36.8; O2SAT 95
[2025-07-29 07:35] LABS: Alanine Aminotransferase 11 U/L (0-31); Albumin Level 3.1 g/dL (3.5-5.0); Alkaline Phosphatase 84 U/L (39-117); Anion Gap 16 (12-20); Aspartate Amino Transferase 25 U/L (5-31); Blood Urea Nitrogen 13 mg/dL (9-16); Calcium 8.4 mg/dL (8.4-10.2); Carbon Dioxide 25 mmol/L (22-29); Chloride 106 mmol/L (96-108); Creatinine Clr Calc Pharmacy 60.1; Estimated Glomerular Filt Rate > 60; Magnesium 1.5 mg/dL (1.6-2.6); Potassium 3.3 mmol/L (3.3-5.1); Sodium 144 mmol/L (135-145); Total Protein 5.8 g/dL (6.5-8.0)
[2025-07-29 08:23] VITALS: BP 135/72
[2025-07-29] MEDS: Metoprolol Tartrate 12.5 MG HALFTAB PO (08:23)
[2025-07-29] MEDS: Aspirin Enteric Coated 81 MG TABLET.DR PO (08:24)
[2025-07-29] MEDS: Potassium Chloride Packet 20 MEQ PACKET PO (08:24)
[2025-07-29] MEDS: 0.9 % Sodium Chloride Flush 3 ML SYRINGE IVFLUSH (08:24)
--- NOTE | 2025-07-29 09:08 | PM.DS ---
DS: Providers Provider Date of Service: 07/29/25 Date of admission: 07/19/25 10:35 Date of discharge: 07/29/25 Primary care physician: CARIDAD Gonzales Consults: 07/19/25 15:37 Consult to Cardiology Routine Consulting Provider: [facility] Reason for consultation: elevated troponin Has provider been notified: No 07/20/25 14:27 Consult to Infectious Diseases Routine Consulting Provider: [facility] Reason for consultation: Sepsis Has provider been notified: No 07/21/25 10:52 Consult to Infectious Diseases Routine Consulting Provider: [facility] Infectious [facility] Reason for consultation: Sepsis Has provider been notified: No 07/26/25 09:26 Consult to Infectious Diseases Routine Consulting Provider: [facility] Infectious [facility] Reason for consultation: Fuo Has provider been notified: No 07/28/25 12:43 Consult to Pulmonology Routine Consulting Provider: [facility] Reason for consultation: ?pneumonia with bilateral effusions DS: Diagnosis Discharge Diagnosis (1) Polymyositis: Status: Acute DS: Summary Hospital Course Hospital Course: HPI:69-year-old female with past medical history significant for CKD, CHF, AFib, group B streptococcal bacteremia, anemia, HLD, HTN, RA who presented to the hospital for generalized weakness. Patient states that yesterday she began feeling unwell with subjective fevers, went home to rest, and was in the toilet for about 4 hours unable to get herself up. Patient then crawled herself to the room, after could not help her called 911. Patient denies any chest pain, shortness of breath, dysuria, nausea or vomiting. In the ED patient febrile, with labs showing WBC of 27.1, potassium 3.0, creatinine 1.4 Hospital course: Patient was admitted for severe sepsis due to cellulitis. Was treated with vancomycin and sepsis resolved. Patient then had recurrence of fevers extensive workup was done to look for other source. Cultures were negative, CT chest showed bilateral pleural effusions but these appear to be chronic, was reviewed with Infectious Disease and Pulmonary who felt the patient did not have active pneumonia and antibiotics were discontinued. For acute on chronic diastolic CHF was diuresed with IV Lasix and transitioned back to oral. For acute hypokalemia and acute hypomagnesemia which was symptomatic was given replacement. Acute hypernatremia resolved with increased free fluid intake. For NSTEMI due to demand ischemia was continued on Eliquis. For paroxysmal AFib with RVR was given amiodarone load which will decrease to maintenance dose on 08/05. Is currently in sinus rhythm. Was continued on apixaban. Acute kidney injury resolved with IV fluids. Patient is feeling better and she will be discharged back home. Time Attestation Discharge Coordination Time (in mins): 32 Quality: Safe Use of Opioids Does Pt have an Active Cancer Diagnosis on the Problem List?: No Quality: Stroke Does the patient have a stroke diagnosis?: No Physical Exam Vital Signs: Vital Signs: Last Vital Signs Temp 98.3 F 07/29/25 07:12 Pulse 59 07/29/25 07:12 Resp 18 07/29/25 07:12 BP 135/72 07/29/25 08:23 Pulse Ox 95 07/29/25 07:12 O2 Del Method Room Air 07/29/25 07:12 O2 Flow Rate 1 07/27/25 14:56 BMI result Body Mass Index 32.6 Const: General: cooperative HEENT: Head: Yes normal to inspection Face and sinus: Yes normal facial exam Mouth: Normal oral and palatal mucosa present Teeth and gingiva: dentition normal Eyes: General: appearance normal, both eyes and all related structures Pupils: Equal, round and reactive pupils present Resp: Effort & Inspection: normal respiratory effort Cardio: Rate: regular rate Rhythm: regular rhythm GI: Palpation (GI): Soft to palpation and nontender : General: Yes no CVA tenderness Back/Spine/Pelvis: Back: no CVA tenderness Skin: General skin exam: no rashes or lesions noted Neuro: General: moves all extremities Cranial nerves: Yes Equal, round and reactive pupils present Extrem: General: Yes normal to inspection Psych: Appearance: grossly normal DS: Data Data Completed and Pending Labs on day of discharge: Laboratory Results - last 24 hr 07/28/25 07/29/25 13:19 06:32 WBC 4.3 L RBC 4.04 L Hgb 12.4 Hct 39.1 MCV 96.8 MCH 30.7 MCHC 31.7 RDW 14.8 Plt Count 202 MPV 10.5 Absolute Nucleated RBC 0.000 Nucleated RBC % (auto) 0.0 Sodium 144 Potassium 3.3 Chloride 106 Carbon Dioxide 25 Anion Gap 16 BUN 13 Creatinine 0.87 Estim Creat Clear Calc 60.1 Estimated GFR > 60 Random Glucose 76 Calcium 8.4 Magnesium 1.5 L Total Bilirubin 0.5 Direct Bilirubin 0.2 AST 25 ALT 11 Alkaline Phosphatase 84 Total Protein 5.8 L Albumin 3.1 L Random Vancomycin 17.5 Preliminary micro results at discharge 07/26/25 01:53 Blood Culture - Preliminary Blood - Venous No growth after 48 hours. 07/26/25 01:53 Blood Culture - Preliminary Blood - Venous No growth after 48 hours. Discharge Plan Discharge Anticipated Discharge Date/Time: 07/22/25 11:31 Patient Disposition: Home Health Service Discharge Diagnosis: Severe sepsis secondary to cellulitis. NSTEMI, JÚNIOR, AFib with RVR, hypokalemia case Referrals: Rosemarie Kraft PA [Primary Care Provider, Hospitalist] - 1 Week Discharge Medications: New amiodarone 200 mg Tablet 400 mg PO BID Qty: 90 0RF Rx Instructions: Amiodarone 400 mg p.o. b.i.d. until08/04/25 then on 08/05/25 switched to amiodarone 200 mg p.o. daily. aspirin 81 mg Tablet,Delayed Release (Dr/Ec) 81 mg PO DAILY Qty: 90 0RF Continued atorvastatin 20 mg tablet 20 mg PO DAILY 90 Days Qty: 90 1RF metoprolol succinate 50 mg tablet extended release 24 hr 50 mg PO DAILY vitamin B complex Tablet 1 tab PO DAILY cholecalciferol (vitamin D3) [Vitamin D3] 50 mcg (2,000 unit) Capsule 50 mcg PO DAILY pantoprazole 40 mg tablet,delayed release (DR/EC) 40 mg PO DAILY@0630 furosemide 40 mg tablet 80 mg PO DAILY acetaminophen 650 mg tablet extended release 650 mg PO Q8H PRN (Reason: Pain) allopurinol 100 mg tablet 100 mg PO DAILY dapagliflozin propanediol [Farxiga] 10 mg tablet 10 mg PO DAILY baclofen 10 mg tablet 10 - 20 mg PO BEDTIME Qty: 180 3RF Eliquis 5 mg tablet 5 mg PO BID loperamide [Imodium A-D] 2 mg capsule 2 mg PO QID PRN (Reason: diarrhea) 60 Days Qty: 180 2RF potassium chloride 20 mEq tablet extended release 20 meq PO DAILY ferrous sulfate 325 mg (65 mg iron) tablet 325 mg PO DAILY Rx Instructions: Take one pill by mouth every other day Discharge Orders: Discharge Order (Routine); Ordered 07/29/25 Ordered By: Efrem Calvillo Diet: Advance to usual diet Activity on Discharge: As tolerated Stand Alone Forms: Patient Portal Discharge page, Work/School Release Print Language: Welsh Other Ambulatory Orders: Complete Blood Count no Diff (Routine) Timeframe: 1 Week Facility: [facility] - Location: Laboratory Ordered By: Jason Ortega Creatine Kinase Total (Routine) Timeframe: 1 Week Facility: [facility] - Location: Laboratory Ordered By: Jason Ortega Comprehensive Met. Panel (Routine) Timeframe: 1 Week Facility: [facility] - Location: Laboratory Ordered By: Jason Ortega Care Plan Goals: Patient was admitted for severe sepsis secondary to cellulitis : Patient was started on IV antibiotics, blood cultures sent, in addition to that patient was found to have NSTEMI(unclear etiology -possible multifactorial-sepsis/AFib with RVR/JÚNIOR), AFib with RVR received IV amiodarone drip, JÚNIOR/rhabdomyolysis-improved with the hydration. Patient also had lactic acidosis with a severe sepsis: Received hydration, since patient improved ,no further trending of lactic acid. Blood culture 1/2 coagulase-negative Staph: Likely contamination. In addition patient had ANUPAM done due to above severe sepsis, elevated xlinoqbjs-TRZ-pezyrwkh for endocarditis. NSTEMI and AFib with RVR-added aspirin in addition to Eliquis, continue metoprolol and For cellulitis discussed with infectious disease: Recommended to switch to p.o. antibiotics-pending. AFib with RVR seems to be improved significantly after IV amiodarone currently in NSR-subsequently switched to p.o. amiodarone loading-400 mg p.o. b.i.d. for 2 weeks(08/04/25), then switched to amiodarone 200 mg p.o. q.d(08/05/25). Hypokalemia repleted and resolved. Mild elevated LFT: Likely elevated in the setting of rhabdo/could be secondary to decreased perfusion. Us reviewed with positive sonographic ordonez sign, moderately distended gallbladder w/ debris. But patient is asymptomatic. plan:Amiodarone as prescribed. Aspirin 81 mg daily for 3 months. Further use will be decided outpatient with Cardiology. Monitor BMP, LFTs outpatient, start statin after repeating LFTs and CPK outpatient preferably in a week. Follow up with PCP, Cardiology outpatient. Health Concerns: As above. Amiodarone as prescribed. Aspirin 81 mg daily for 3 months. Further use will be decided outpatient with Cardiology. Monitor BMP, LFTs outpatient, start statin after repeating LFTs and CPK outpatient preferably in a week. Follow up with PCP, Cardiology outpatient Plan of Treatment: As above. Assessment: As above.
[2025-07-29 11:11] VITALS: BP 132/73; PULSE 56; RESP 18; TEMP 36.6; O2SAT 95
--- NOTE | 2025-07-29 11:13 | MHC.CM.PN ---
PT CLEARED TO DC HOME TODAY WITH [facility] CM MET WITH PT WHO SAYS SHE HAS AN APPT WITH [facility] ON SATURDAY AND WOULD PREFER THAT INSTEAD OF [facility] WILL TRANSPORT
--- NOTE | 2025-08-25 07:04 | P.CDIM_ITS ---
PROVIDER RESPONSE TEXT: To clarify, the appropriate diagnosis supported by the clinical indicators: Severe sepsis due to Cellulitis: lower extremities QUERY TEXT: PHYSICIAN'S DOCUMENTATION REQUEST Date of Query: 08/18/2025 12:38 PM EST Patient Name: Karol Frias Admit Date: 07/19/2025 Dear Efrem Calvillo MD, RETROSPECTIVE QUERY A review of the medical record indicates additional documentation may be needed. Please review below and update the documentation accordingly. Clinical Indicators: Discharge Summary dated 07/28/25 - Admitted for severe sepsis due to cellulitis. Was treated with Vancomycin and Sepsis resolved. Based on the above, could you clarify further specifics of the Cellulitis and its location for this admission: Severe sepsis due to Cellulitis please specify the location of the Cellulitis Other specifics Other (explain) Clinically unable to determine (explain) Thank you, Brooke Lynn, CCS, CDIS Use of terms such as suspected, likely, concern for, or probable (associated with a specific diagnosis that is being evaluated, monitored, or treated as if it exists) are acceptable and can be coded in the inpatient setting, when documented at the time of discharge. Please use your independent medical judgment in providing your response. THIS QUERY IS PART OF THE PERMANENT MEDICAL RECORD
== END 2025-07-29 13:00 | disposition home health service (06) | DRG 871 ==
LOC: HO.ED 07:51 → HO.EDOVER 10:36 → HO.IMC 07-20 12:35
PROVIDERS: Internal Medicine; Internal Medicine Cardiovascular Disease; Student in an Organized Health Care Education/Training Program; Admitting Provider Student in an Organized Health Care Education/Training Program; Emergency Provider Emergency Medicine; PCP Physician Assistant; Visit Provider Internal Medicine
PROC: B246ZZ4 Ultrasonography of Right and Left Heart, Transesophageal (ICD-10-PCS; CPT 93312; principal; 2025-07-21 13:00)
DX: A41.9 Sepsis, unspecified organism (principal); I21.A1 Myocardial infarction type 2; I50.33 Acute on chronic diastolic (congestive) heart failure; I13.0 Hypertensive heart and chronic kidney disease with heart failure and stage 1 through stage 4 chronic kidney disease, or unspecified chronic kidney disease; M62.82 Rhabdomyolysis; N17.9 Acute kidney failure, unspecified; E87.0 Hyperosmolality and hypernatremia; L03.116 Cellulitis of left lower limb; L03.115 Cellulitis of right lower limb; L40.9 Psoriasis, unspecified; I49.5 Sick sinus syndrome; I48.0 Paroxysmal atrial fibrillation; E87.6 Hypokalemia; E83.42 Hypomagnesemia; M06.9 Rheumatoid arthritis, unspecified; R65.20 Severe sepsis without septic shock; N18.32 Chronic kidney disease, stage 3b; Z20.822 Contact with and (suspected) exposure to COVID-19; Z79.01 Long term (current) use of anticoagulants; Z79.899 Other long term (current) drug therapy
CPT/HCPCS: 36415; 71045; 71250; 76705; 80048; 80076; 80202; 81001; 82550; 82565; 83605; 83690; 83735; 83880; 84145; 84443; 84484; 85025; 85027; 85610; 85730; 86140; 87040; 87086; 87205; 87633; 87637; 93005; 93306; 93970; 94799; 97110; 97116; 97162; 97165; 97530; 97535; 99285; J0131; J0282; J0283; J0616; J0696; J1100; J1596; J1938; J2003; J2250; J2371; J2405; J2470; J2543; J2704; J3010; J3373; J3374; J3475; J7120; Q9957

== ENCOUNTER → 2025-07-19 05:59 | Outpatient (BNV) | payer MEDICARE, OTHER, SELFPAY | PROVIDERS: Emergency Provider Emergency Medicine; PCP Physician Assistant; Visit Provider Internal Medicine Cardiovascular Disease | DX: I35.0 Nonrheumatic aortic (valve) stenosis (principal); I49.1 Atrial premature depolarization | CPT/HCPCS: 93010; 93306 ==

== ENCOUNTER → 2025-07-19 05:59 | Outpatient (BNV) | payer MEDICARE, OTHER, SELFPAY | PROVIDERS: Emergency Provider Emergency Medicine; PCP Physician Assistant; Visit Provider Radiology Vascular & Interventional Radiology | DX: R50.9 Fever, unspecified (principal) | CPT/HCPCS: 71045; 76705 ==

== ENCOUNTER 2025-07-19 10:35 | Outpatient (BNV) | payer MEDICARE, OTHER, SELFPAY | END 2025-07-21 13:00 | PROVIDERS: Admitting Provider Student in an Organized Health Care Education/Training Program; Emergency Provider Emergency Medicine; PCP Physician Assistant; Visit Provider Internal Medicine Cardiovascular Disease | DX: I35.0 Nonrheumatic aortic (valve) stenosis (principal); I34.0 Nonrheumatic mitral (valve) insufficiency; I36.1 Nonrheumatic tricuspid (valve) insufficiency | CPT/HCPCS: 93312 ==

== ENCOUNTER 2025-07-19 10:35 | Outpatient (BNV) | payer MEDICARE, OTHER, SELFPAY | END 2025-07-24 06:00 | PROVIDERS: Admitting Provider Student in an Organized Health Care Education/Training Program; Emergency Provider Emergency Medicine; PCP Physician Assistant; Visit Provider Radiology Diagnostic Radiology | DX: R06.2 Wheezing (principal); R09.89 Other specified symptoms and signs involving the circulatory and respiratory systems | CPT/HCPCS: 71045 ==

== ENCOUNTER 2025-07-19 10:35 | Outpatient (BNV) | payer MEDICARE, OTHER, SELFPAY | END 2025-07-20 12:58 | PROVIDERS: Admitting Provider Student in an Organized Health Care Education/Training Program; Emergency Provider Emergency Medicine; PCP Physician Assistant; Visit Provider Internal Medicine Cardiovascular Disease | DX: I48.91 Unspecified atrial fibrillation (principal) | CPT/HCPCS: 93010 ==

== ENCOUNTER 2025-07-19 10:35 | Outpatient (BNV) | payer MEDICARE, OTHER, SELFPAY | END 2025-07-24 10:15 | PROVIDERS: Admitting Provider Student in an Organized Health Care Education/Training Program; Emergency Provider Emergency Medicine; PCP Physician Assistant; Visit Provider Internal Medicine Cardiovascular Disease | DX: I25.2 Old myocardial infarction (principal) | CPT/HCPCS: 93010 ==

== ENCOUNTER 2025-07-19 10:35 | Outpatient (BNV) | payer MEDICARE, OTHER, SELFPAY | END 2025-07-28 10:05 | PROVIDERS: Admitting Provider Student in an Organized Health Care Education/Training Program; Emergency Provider Emergency Medicine; PCP Physician Assistant; Visit Provider Radiology Diagnostic Radiology | DX: J90 Pleural effusion, not elsewhere classified (principal); R91.8 Other nonspecific abnormal finding of lung field | CPT/HCPCS: 71250 ==

== ENCOUNTER 2025-07-19 10:35 | Outpatient (BNV) | payer MEDICARE, OTHER, SELFPAY | END 2025-07-23 09:11 | PROVIDERS: Admitting Provider Student in an Organized Health Care Education/Training Program; Emergency Provider Emergency Medicine; PCP Physician Assistant; Visit Provider Internal Medicine Cardiovascular Disease | DX: I48.91 Unspecified atrial fibrillation (principal); I25.2 Old myocardial infarction | CPT/HCPCS: 93010 ==

== ENCOUNTER 2025-07-19 10:35 | Outpatient (BNV) | payer MEDICARE, OTHER, SELFPAY | END 2025-07-26 15:42 | PROVIDERS: Admitting Provider Student in an Organized Health Care Education/Training Program; Emergency Provider Emergency Medicine; PCP Physician Assistant; Visit Provider Radiology Diagnostic Radiology | DX: R91.8 Other nonspecific abnormal finding of lung field (principal) | CPT/HCPCS: 71045 ==

== ENCOUNTER → 2025-07-19 10:35 | Outpatient (BNV) | payer MEDICARE, OTHER, SELFPAY | PROVIDERS: Admitting Provider Student in an Organized Health Care Education/Training Program; Emergency Provider Emergency Medicine; PCP Physician Assistant; Visit Provider Internal Medicine Cardiovascular Disease | DX: I21.4 Non-ST elevation (NSTEMI) myocardial infarction (principal); I48.0 Paroxysmal atrial fibrillation | CPT/HCPCS: 99222; 99233 ==

== ENCOUNTER → 2025-07-19 10:35 | Outpatient (BNV) | payer MEDICARE, OTHER, SELFPAY | PROVIDERS: Admitting Provider Student in an Organized Health Care Education/Training Program; Emergency Provider Emergency Medicine; PCP Physician Assistant; Visit Provider Internal Medicine Pulmonary Disease | DX: J90 Pleural effusion, not elsewhere classified (principal) | CPT/HCPCS: 99223 ==

== ENCOUNTER → 2025-07-19 10:35 | Outpatient (BNV) | payer MEDICARE, OTHER, SELFPAY | PROVIDERS: Admitting Provider Student in an Organized Health Care Education/Training Program; Emergency Provider Emergency Medicine; PCP Physician Assistant; Visit Provider Internal Medicine | DX: M33.20 Polymyositis, organ involvement unspecified (principal) | CPT/HCPCS: 99222; 99232; 99499 ==

== ENCOUNTER → 2025-07-19 10:35 | Outpatient (BNV) | payer MEDICARE, OTHER, SELFPAY | PROVIDERS: Admitting Provider Student in an Organized Health Care Education/Training Program; Emergency Provider Emergency Medicine; PCP Physician Assistant; Visit Provider Student in an Organized Health Care Education/Training Program | DX: I48.0 Paroxysmal atrial fibrillation (principal) | CPT/HCPCS: 99232 ==

== ENCOUNTER 2025-08-03 13:49 | Outpatient (AMB) | payer MEDICARE, OTHER, SELFPAY ==
--- NOTE | 2025-08-03 13:57 | MHC.OFFVIS ---
Intake Visit Reasons: 6 mo follow up leg check Intake Note: Patient presents for 6 month leg check . No complaints. Accompanied by: Self / Same As Patient Allergies hydroxychloroquine (Plaquenil) Allergy (Severe, Verified 08/04/25 09:36) Rash codeine (Codeine) Allergy (Intermediate, Verified 08/04/25 09:36) NAUSEA & VOMITING methotrexate Allergy (Intermediate, Verified 08/04/25 09:36) Diarrhea oxycodone Allergy (Intermediate, Verified 08/04/25 09:36) dizziness, nausea, vomiting tramadol Allergy (Intermediate, Verified 08/04/25 09:36) Diarrhea metronidazole Allergy (Unknown, Verified 08/04/25 09:36) Vomiting hydromorphone (From Dilaudid) Adverse Reaction (Verified 08/04/25 09:36) Vomiting HPI HPI 6 mo follow up leg check: Details: The patient is a 69 year old individual presenting for a follow-up visit for venous disease. The patient previously underwent a left leg radiofrequency ablation on December 25, 2024, and had subsequent bruising and concerns of psoriasis. The current visit is to address the right small saphenous vein. The patient reports being recently discharged from the hospital on after an 11-day admission for chronic heart failure and dyspnea. Regarding the legs, the patient notes some improvement in swelling while not working and wearing compression stockings, but continues to experience tingling in the legs at night and in the feet when walking. [facility] Medical History CKD stage 3b, GFR 30-44 ml/min Diarrhea Congestive heart failure Atrial fibrillation Septic shock Group B streptococcal bacteriuria IBS (irritable bowel syndrome) History of cellulitis Elevated cholesterol HTN (hypertension) PONV (postoperative nausea and vomiting) Colon cancer screening Eczema DVT (deep venous thrombosis) Cough Primary osteoarthritis, right hand Primary osteoarthritis, left hand Gout Polymyositis Surgical History Hx of shoulder surgery (11/22/23) History of back surgery (~2019) Hx of endoscopy H/O colonoscopy (~02/11/19) Family History Mother No problems noted. Father No problems noted. 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 Cognitive needs: No Hearing needs: No Vision needs: Yes (rx glasses) Review of Systems Const Reports as per HPI ENT Reports no additional complaints Card Denies chest pain, Denies chest pain at rest and Denies chest pain with activity Resp Denies chest congestion and Denies cough GI Reports no additional complaints Musc Details: pain over varicosities, aching of lower extremities, swelling, cramping, heaviness and tiredness, itching Denies abnormal gait Skin/Breast Reports pruritus and Denies wounds Neuro Reports no additional complaints and Denies abnormal gait Psych Denies no additional complaints Physical Exam Const General: cooperative, healthy appearing and comfortable Orientation/consciousness: oriented to person, oriented to place and oriented to time Neck Carotids: no bruits Chest Chest palpation & inspection: normal inspection of the chest and normal palpation of entire chest wall Resp Effort & Inspection: normal respiratory effort and able to speak in complete sentences Cardio Rate: regular rate Heart sounds: S1 normal heart sound present and S2 normal heart sound present Peripheral pulses: Peripheral pulses 2+ throughout GI Inspection: Yes normal to inspection Skin Other: +2 edema, large rope-like varicosities greater than 4 mm CEAP Classification C4 - skin color changes Ep - Etiology Primary As - superficial veins P - reflux General skin exam: dry skin Neuro General: oriented to person, oriented to place and oriented to time Extrem Right lower extremity: full ROM, normal capillary refill and edema Left lower extremity: full ROM, normal capillary refill and edema Psych Mental Status: mental status grossly normal Assessment & Plan Assessment & Plan (1) Varicose veins of right lower extremity with inflammation: Comment: 09/18/2024 - right great saphenous vein radiofrequency ablation Code(s): I83.11 - Varicose veins of right lower extremity with inflammation Category: Medical Plan: I discussed with the patient that due to the recent hospitalization for heart failure, it is not advisable to proceed with any elective procedures at this time. I would like her to recover from this and in addition she at some point may require right small saphenous vein ablation. I informed the patient that I will review the hospital records to better understand the recent health events. We agreed to schedule a follow-up appointment in three months to re-evaluate the patient's breathing and overall condition before reconsidering treatment for the right small saphenous vein. Thank you for allowing us to assist in her care. If there are any questions or concerns please do not hesitate to contact us. Coding Level of Care Code Est Pt Level 4 (15547) Diagnoses Varicose veins of right lower extremity with inflammation I83.11
--- OUTSIDE RECORDS SUMMARY | 2025-08-03 17:41 | XMS_ITS | Patient Health Record ---
Author Organization [facility] Address [address] [place] [address] Care Team Providers Care Prosthodontist/Owner Name Role Phone Janny NAVARRO, Deb Primary Care Provider Hal Tracey Jr Unavailable Allergies Allergen (clinical drug ingredient) Drug/Non Drug Allergy documented on EMR Reaction Allergy Type Onset Date Status methetrexol (uncoded) Unknown Allergy Active codeine Codeine Sulfate Unknown Drug Allergy A ctive Reason For Referral No Information Medications Medication SIG (Take, Route, Frequency, Duration) Notes Start Date End Date Status Klor-Con M10 10 MEQ Tablet Extended Release TAKE 1 TABLET BY MOUTH EVERY DAY Oral; Duration: 90 Active Atorvastatin Calcium 20 MG Tablet TAKE 1 TABLET BY MOUTH EVERY DAY Oral; Duration: 30 Active Metoprolol Tartrate 100 MG Tablet TAKE 1 TABLET BY MOUTH EVERY DAY Oral; Duration: 90 Active Colyte with Flavor Packs 240 GM Solution Reconstituted As directed Orally Over the specified time.; Duration: 1 day(s) 11/06/2018 Active Leflunomide 10 MG Tablet TAKE 1 TABLET B Y MOUTH EVERY DAY Oral; Duration: 90 Active Triamterene-HCTZ 75-50 MG Tablet TAKE 1 TABLET BY MOUTH EVERY DAY Oral; Duration: 90 Active chlordiazePOXIDE-Clidinium 5-2.5 MG Capsule TAKE 1-2 CAPSULES BY MOUTH DAILY IF NEEDED Oral; Duration: 30 Active Warfarin Sodium 2 MG Tablet TAKE 1 TABLE T BY MOUTH EVERY DAY Oral; Duration: 90 Active Immunizations Vaccine Route Administration Date Status Comme nts Influenza Unknown 07/10/2018 Administered Social History Tobacco Use: Social History Observation Description Date Details (start date - stop date) Never Smoker NA - NA Social History Drugs/Alcohol: Social Info Question Answer Notes Alcohol Screen Did you have a drink containing alcohol in the past year? No Points 0 Interpretation Negative Tobacco Use: Social Info Question Answer Notes Tobacco Use/Smoking Patient is a nonsmoker Additional Details Category Social Info Options Details Miscellaneous: Marital status: Occupation: works Plan Of Treatment Future Test Test Name Order Date COLONOSCOPY 11/06/2018 Insurance Providers Payer Name Payer Address Payer Phone Subscriber Number Group Number Insured Name Patient Relationship to Insured Coverage Start Date Coverage End Date [facility] [address] [facility] [place], [place] [phone] [id number] EMMETT JUÁREZ Self - patient is the insured Medical (General) History Medical History History ICD Code hypertension Denies [place],DM,CVA,Lung disease,renal dise ase Gout myositis hx of celulitis IBS Surgical History Surgery Date(Month/Year)
--- OUTSIDE RECORDS SUMMARY | 2025-08-03 17:41 | XMS_ITS | Clinical Summary ---
Author Organization [facility] Address [address] [place] [address] Care Team Providers Care Commercial Sales Manager Name Role Phone Kenisha Ozuna MD Primary Care Provider [phone] Allergies Active Allergy Reactions Criticality Noted Date [...] subsegmental atelectasis. Minimal interstitial pulmonary edema. BNP 56430 Trop 647 -> 542 SBP 105 - Per interventional cardiology plan for RHC/LHC +/- PCI 01/20 and plan for n.p.o. at midnight - [id number] 2 - Continue heparin GTT - Aspirin [...] subsegmental atelectasis. Minimal interstitial pulmonary edema. BNP 91052 Trop 647 -> 542 SBP 105 - Per interventional cardiology plan for RHC/LHC +/- PCI 01/20 and plan for n.p.o. at midnight - [id number] 2 - Continue heparin GTT - Aspirin [...] subsegmental atelectasis. Minimal interstitial pulmonary edema. BNP 33136 Trop 647 -> 542 SBP 105 - Per interventional cardiology plan for RHC/LHC +/- PCI 01/20 and plan for n.p.o. at midnight - [id number] 2 - Continue heparin GTT - Aspirin [...] subsegmental atelectasis. Minimal interstitial pulmonary edema. BNP 91419 Trop 647 -> 542 SBP 105 - Per interventional cardiology plan for RHC/LHC +/- PCI 01/20 and plan for n.p.o. at midnight - [id number] 2 - Continue heparin GTT - Aspirin [...] subsegmental atelectasis. Minimal interstitial pulmonary edema. BNP 07424 Trop 647 -> 542 SBP 105 - Per interventional cardiology plan for RHC/LHC +/- PCI 01/20 and plan for n.p.o. at midnight - [id number] 2 - Continue heparin GTT - Aspirin 81 mg once daily - Lipitor 80 mg once daily - Lasix 40 mg IV twice daily - Lopressor 20 mg twice daily - Lipids in a.m. - Strict I's and O's, daily weights, telemetry - K>4 and Mg >2 Encounters Date Type Department Care Team Description 06/09/2025 Scanned Document [facility] Cardiology, Scan from Last 3 Months Social History Tobacco Use Types Packs/Day Years Used Date Smoking Tobacco: Never Smokeless Tobacco: Never Tobacco Cessation:Counseling Given: Not Answered Alcohol Use Standard Drinks/Week Comments Not Currently 0 (1 standard drink = 0.6 oz pur e alcohol) [facility] Utilities Answer Date Recorded In the past 12 months has e electric, gas, oil, or water [employer] threatened to shut off services in your [...] time in the past 12 m [facility], were you homeless or living in [...] age to complete this topic Insurance [facility] MEDICARE PART A & B MEDICARE PART A & B [facility] Advance Directives * Full Code (Latest Code Status on File) Date Activated Date Inactivated Comments 01/18/2025 2:04 PM Care Teams Commercial Sales Manager Relationship Specialty Start Date End Date Kenisha Ozuna MD [address] [place] [phone] PCP - General Internal Medicine 01/19/25
--- OUTSIDE RECORDS SUMMARY | 2025-08-03 17:41 | XMS_ITS | Clinical Summary ---
Author Organization [facility] Facility Address [address] [place] [address] Care Team Providers Care Building Associate Name Role Phone Deb Soliman MD Primary Care Provider [phone] Medications metoprolol tartrate (LOPRESSOR) 50 MG tablet [...] age to complete this topic Care Teams Building Associate Relationship Specialty Start Date End Date Deb Soliman MD [address] [place] [address] [address] [place] [address] PCP - General 09/19/20
--- OUTSIDE RECORDS SUMMARY | 2025-08-03 17:41 | XMS_ITS | Encounter Summary ---
Author Organization [facility] Address [address] [place] [address] Care Team Providers Care Workforce Manager Name Role Phone Kenisha Ozuna MD Primary Care Provider [phone] Encounter Details Date Type Department Care Team (Late st Contact Info) Description 06/09/2025 Scanned Document [facility] CARDIOLOGY SCAN Cardiology, Scan Social History Tobacco Use Types Packs/Day Years Used Date Smoking Tobacco: Never Smokeless Tobacco: Never Alcohol Use Standard Drinks/Week Comments Not Currently 0 (1 standard drink = 0.6 oz pur e alcohol) [facility] Utilities Answer Date Recorded In the past 12 months has [employer] electric, gas, oil, or water [employer] threatened to shut off services in your [...] any time in the past 12 m [facility], were you homeless or living in [...] on filedocumented in this encounter Care Teams Workforce Manager Relationship Specialty Start Date End Date Kenisha Ozuna MD [address] [place] [address] [place] [address] PCP - General Internal Medicine 01/19/25 documented as of this encounter
== END 2025-08-03 14:29 | disposition home or self-care (01) ==
LOC: HO.HVS 13:50
PROVIDERS: PCP Internal Medicine; Visit Provider Surgery Vascular Surgery
DX: I83.11 Varicose veins of right lower extremity with inflammation (principal)
CPT/HCPCS: 99214

== ENCOUNTER → 2025-08-03 13:49 | Outpatient (BNVA) | payer MEDICARE, OTHER, SELFPAY | PROVIDERS: PCP Internal Medicine; Visit Provider Surgery Vascular Surgery | DX: I83.11 Varicose veins of right lower extremity with inflammation (principal) | CPT/HCPCS: 99212 ==

== ENCOUNTER 2025-08-04 09:30 | Outpatient (AMB) | payer MEDICARE, OTHER, SELFPAY ==
--- NOTE | 2025-08-04 09:36 | MHC.PC.OV ---
Vital Signs 08/04/25 09:38 Height 5 ft 2.25 in Weight 76.204 kg BMI 30.5 BP 132/80 Blood Pressure Location Lt brachial Position Sitting Respiration 16 Pulse 50 Pulse Source Pulse Oximeter Temp 96.8 F Temp Source Temporal Artery Scan Pulse Oximetry (%) 97 Oxygen Delivery Method Room Air Intake Visit Reasons: [facility] ED 07/19-07/29, follow up Loom Checker Required: No Accompanied by: Self / Same As Patient Allergies hydroxychloroquine (Plaquenil) Allergy (Severe, Verified 08/04/25 14:56) Rash codeine (Codeine) Allergy (Intermediate, Verified 08/04/25 14:56) NAUSEA & VOMITING methotrexate Allergy (Intermediate, Verified 08/04/25 14:56) Diarrhea oxycodone Allergy (Intermediate, Verified 08/04/25 14:56) dizziness, nausea, vomiting tramadol Allergy (Intermediate, Verified 08/04/25 14:56) Diarrhea metronidazole Allergy (Unknown, Verified 08/04/25 14:56) Vomiting hydromorphone (From Dilaudid) Adverse Reaction (Verified 08/04/25 14:56) Vomiting Medication List - Last Reconciled 08/04/25 by CARIDAD Gonzales acetaminophen ER 650 mg PO Q8H PRN allopurinol 100 mg PO DAILY amiodarone 400 mg (2 x 200 mg) PO BID apixaban (Eliquis) 5 mg PO BID aspirin 81 mg PO DAILY atorvastatin 20 mg PO DAILY 90 days baclofen 10 - 20 mg (1 - 2 x 10 mg) PO BEDTIME cholecalciferol (vitamin D3) (Vitamin D3) 50 mcg PO DAILY dapagliflozin propanediol (Farxiga) 10 mg PO DAILY ferrous sulfate 325 mg PO DAILY furosemide 80 mg PO DAILY loperamide (Imodium A-D) 2 mg PO QID PRN 60 days metoprolol succinate ER 50 mg PO DAILY ondansetron 4 mg PO Q8H PRN pantoprazole 40 mg PO DAILY@0630 potassium chloride ER 20 mEq PO DAILY vitamin B complex 1 tab PO DAILY Tobacco use date assessed: 06/04/25 Fall risk assessment: 1 Fall in past year Last assessed Fall Risk: 08/04/25 Dental Screening Dental Screen Date: 06/04/25 HPI HPI Comments History of Present Illness Details 69-year-old female with history of rheumatoid arthritis, hyperlipidemia, eczema, history of gout, history of DVT, CHF, IBS, osteoarthritis, polymyositis presenting to the office today for management of chronic conditions. Hospitalized at [facility] w/ DC 07/29. Per jasen'marce NAVARRO: admitted for severe sepsis due to cellulitis. Was treated with vancomycin and sepsis resolved. Patient then had recurrence of fevers extensive workup was done to look for other source. Cultures were negative, CT chest showed bilateral pleural effusions but these appear to be chronic, was reviewed with Infectious Disease and Pulmonary who felt the patient did not have active pneumonia and antibiotics were discontinued. For acute on chronic diastolic CHF was diuresed with IV Lasix and transitioned back to oral. For acute hypokalemia and acute hypomagnesemia which was symptomatic was given replacement. Acute hypernatremia resolved with increased free fluid intake. For NSTEMI due to demand ischemia was continued on Eliquis. For paroxysmal AFib with RVR was given amiodarone load which will decrease to maintenance dose on 08/05. Is currently in sinus rhythm. Was continued on apixaban. Acute kidney injury resolved with IV fluids. Patient is feeling better and she will be discharged back home. Feeling better overall though is feeling somewhat weak with n/v/d, fatigue, lightheadedness. She was discharged home on lasix 80mg daily which she has been taking. CV: Follows with Dr Pastrana. Echocardiogram showed reduced LV systolic function with EF 45% and severe hypo to akinesis of the mid anterior, mid anterolateral, mid anteroseptal, and mid in the lateral segments. She did undergo cardiac catheterization which was negative for any significant coronary artery disease. On eliquis for ac, amiodarone, and toprol Eczema: Awaiting dermatology consultation. She does have history of strep B cellulitis from wound culture taken from legs. She has chronic severe eczema which responds well to prednisone but does not have a enamel pulverizer RA: She was following with rheumatology. She is on leflunomide. She has significant neuropathy, numbness, tingling from the medications. She is scheduled to see rheumatology but not until Oct 2025 IBS: Previously following with Dr. Torres. Using Imodium PRN Concerns: as above Health maintenance: Last screening mammogram 03/2025 with 1 year follow-up advised Colonoscopy 2018 Dr Garrett, 10 year follow-up ROS: See HPI EXAM: Constitutional - Awake and Alert, No apparent distress Eyes - PERRL Cardiovascular - S1S2, RRR, No edema Respiratory - Normal lung expansion, Normal respiratory effort, No respiratory distress, CTA bilaterally Extremities - no calf tenderness bilaterally, no swelling Skin - Warm/Dry Neurological - Alert & oriented x3 Psychological - Appropriate affect [facility] Medical History CKD stage 3b, GFR 30-44 ml/min Diarrhea Congestive heart failure Atrial fibrillation Septic shock Group B streptococcal bacteriuria IBS (irritable bowel syndrome) History of cellulitis Elevated cholesterol HTN (hypertension) PONV (postoperative nausea and vomiting) Colon cancer screening Eczema DVT (deep venous thrombosis) Cough Primary osteoarthritis, right hand Primary osteoarthritis, left hand Gout Polymyositis Surgical History Hx of shoulder surgery (11/22/23) History of back surgery (~2019) Hx of endoscopy H/O colonoscopy (~02/11/19) Family History Mother No problems noted. Father No problems noted. 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 How often do you have a drink containing alcohol?: Never 3. How often do you have six or more drinks on one occasion?: Never Total Score: 0 GHANSHYAM-7 AMB Questionnaire GHANSHYAM-7 Date GHANSHYAM - 7 assessed: 06/04/25 Source: Developed by Drs. Broderick Paez, Camryn Hadley, Porfirio Acosta and colleagues, with an educational vero from [employer]. Physical exam (Primary Care) Vital Signs: Last Vital Signs Temp 96.8 F 08/04/25 09:38 Pulse 50 08/04/25 09:38 Resp 16 08/04/25 09:38 BP 132/80 08/04/25 09:38 Pulse Ox 97 08/04/25 09:38 Oxygen Delivery Method Room Air 08/04/25 09:38 BMI result Body Mass Index 30.5 Tobacco/Smoking Status: Tobacco use Status Tobacco use date assessed 06/04/25 08/04/25 09:43 Patient Tobacco Use Status Never used Tobacco 08/04/25 09:43 e-Cigarette/Vaping Use Never Used 08/04/25 09:43 Thrive Assessment: Date of Thrive Assessment Date Thrive assessed 07/20/25 08/04/25 09:43 Coding Level of Care Code Est Pt Level 5 (56564) Complex visit Add On G2211 Diagnoses Primary hypertension I10 Hypertension type: primary hypertension Paroxysmal atrial fibrillation I48.0 Atrial fibrillation type: paroxysmal Chronic congestive heart failure, unspecified heart failure type I50.9 Heart failure chronicity: chronic Heart failure type: unspecified Time Spent (min) 50 Assessment & Plan Assessment & Plan (1) HTN (hypertension): Comment: - Continue Metoprolol Succinate Code(s): I10 - Essential (primary) hypertension Category: Medical Qualifiers: Hypertension type: primary hypertension Qualified Code(s): I10 - Essential (primary) hypertension Plan: Controlled. Continue current therapies (2) Atrial fibrillation: Comment: - Continue Eliquis and monitor cardiac status periodically. Code(s): I48.91 - Unspecified atrial fibrillation Category: Medical Qualifiers: Atrial fibrillation type: paroxysmal Qualified Code(s): I48.0 - Paroxysmal atrial fibrillation Plan: Rate controlled. Continue Eliquis for anticoagulation as well as metoprolol and amiodarone (3) Congestive heart failure: Comment: - Continue Farxiga and diuretic regimen. Plan confirmed with recent cardiology visit. Code(s): I50.9 - Heart failure, unspecified Category: Medical Qualifiers: Heart failure chronicity: chronic Heart failure type: unspecified Qualified Code(s): I50.9 - Heart failure, unspecified Plan: Clinically euvolemic. Continue following with Cardiology. Continue metoprolol, Lasix, Farxiga Plan Follow-up in the office in 6 months, labs to be completed following today's visit Orders: Orders Basic Metabolic Panel 08/04/25 CARIDAD Gonzales I10 - Essential (primary) hypertension, I48.0 - Paroxysmal atrial fibrillation, I50.9 - Heart failure, unspecified, R19.5 - Other fecal abnormalities, Z51.81 - Encounter for therapeutic drug level monitoring, Z79.899 - Other dedicated intermodal truck driver (current) drug therapy Complete Blood Count Auto Diff 08/04/25 CARIDAD Gonzales I10 - Essential (primary) hypertension, I48.0 - Paroxysmal atrial fibrillation, I50.9 - Heart failure, unspecified, R19.5 - Other fecal abnormalities, Z51.81 - Encounter for therapeutic drug level monitoring, Z79.899 - Other dedicated intermodal truck driver (current) drug therapy IRON PROFILE 08/04/25 CARIDAD Gonzales I10 - Essential (primary) hypertension, I48.0 - Paroxysmal atrial fibrillation, I50.9 - Heart failure, unspecified, R19.5 - Other fecal abnormalities, Z51.81 - Encounter for therapeutic drug level monitoring, Z79.899 - Other mcc (current) drug therapy Lipid Panel 08/04/25 CARIDAD Gonzales I10 - Essential (primary) hypertension, I48.0 - Paroxysmal atrial fibrillation, I50.9 - Heart failure, unspecified, R19.5 - Other fecal abnormalities, Z51.81 - Encounter for therapeutic drug level monitoring, Z79.899 - Other mcc (current) drug therapy Liver Panel 08/04/25 CARIDAD Gonzales I10 - Essential (primary) hypertension, I48.0 - Paroxysmal atrial fibrillation, I50.9 - Heart failure, unspecified, R19.5 - Other fecal abnormalities, Z51.81 - Encounter for therapeutic drug level monitoring, Z79.899 - Other dedicated intermodal truck driver (current) drug therapy TSH reflex Free T4 08/04/25 CARIDAD Gonzales I10 - Essential (primary) hypertension, I48.0 - Paroxysmal atrial fibrillation, I50.9 - Heart failure, unspecified, R19.5 - Other fecal abnormalities, Z51.81 - Encounter for therapeutic drug level monitoring, Z79.899 - Other dedicated intermodal truck driver (current) drug therapy Medications: New metoprolol succinate ER 25 mg PO DAILY 90 tabs 1RF CARIDAD Gonzales ondansetron 4 mg PO Q8H PRN 30 tabs 0RF nausea and vomiting CARIDAD Gonzales On Hold amiodarone Hold Comment: Resume on 09/08/25. 400 mg PO BID Jason Ortega MD metoprolol succinate ER Hold Comment: Resume on 09/08/25. 50 mg PO DAILY Jason Ortega MD Patient Instructions: Request sooner appt with cardiology. Request to discuss: Atrial fibrillation with rapid rate- amiodarone initiated Exaceration of heart failure Type II NSTEMI Explain side effects- ?metoprolol, possibly amiodarone Drop metoprolol to 25mg daily. If needed drop to 12.5mg daily. Call cardiology Check BMP to evaluate renal function given symptoms
[2025-08-04 09:38] VITALS: BP 132/80; PULSE 50; RESP 16; TEMP 36; O2SAT 97; BMI 30.5
--- OUTSIDE RECORDS SUMMARY | 2025-08-04 10:38 | XMS_ITS | Clinical Summary ---
Author Organization [facility] Facility Address [address] [place] [address] Care Team Providers Care Covered Buckle Assembler Name Role Phone Deb Soliman MD Primary Care Provider [phone] Medications metoprolol tartrate (LOPRESSOR) 50 MG tablet [...] age to complete this topic Care Teams Covered Buckle Assembler Relationship Specialty Start Date End Date Deb Soliman MD [address] [place] [address] [address] [place] [address] PCP - General 09/19/20
--- OUTSIDE RECORDS SUMMARY | 2025-08-04 10:38 | XMS_ITS | Clinical Summary ---
Author Organization [facility] Address [address] [place] [address] Care Team Providers Care Coordinator Cardiopulmonary Services Name Role Phone Kenisha Ozuna MD Primary Care Provider [phone] Allergies Active Allergy Reactions Criticality Noted Date [...] subsegmental atelectasis. Minimal interstitial pulmonary edema. BNP 96522 Trop 647 -> 542 SBP 105 - Per interventional cardiology plan for RHC/LHC +/- PCI 01/20 and plan for n.p.o. at midnight - [id number] 2 - Continue heparin GTT - Aspirin [...] subsegmental atelectasis. Minimal interstitial pulmonary edema. BNP 75812 Trop 647 -> 542 SBP 105 - Per interventional cardiology plan for RHC/LHC +/- PCI 01/20 and plan for n.p.o. at midnight - [id number] 2 - Continue heparin GTT - Aspirin [...] subsegmental atelectasis. Minimal interstitial pulmonary edema. BNP 68375 Trop 647 -> 542 SBP 105 - Per interventional cardiology plan for RHC/LHC +/- PCI 01/20 and plan for n.p.o. at midnight - [id number] 2 - Continue heparin GTT - Aspirin [...] subsegmental atelectasis. Minimal interstitial pulmonary edema. BNP 99462 Trop 647 -> 542 SBP 105 - Per interventional cardiology plan for RHC/LHC +/- PCI 01/20 and plan for n.p.o. at midnight - [id number] 2 - Continue heparin GTT - Aspirin [...] subsegmental atelectasis. Minimal interstitial pulmonary edema. BNP 33748 Trop 647 -> 542 SBP 105 - Per interventional cardiology plan for RHC/LHC +/- PCI 01/20 and plan for n.p.o. at midnight - [id number] 2 - Continue heparin GTT - Aspirin 81 mg once daily - Lipitor 80 mg once daily - Lasix 40 mg IV twice daily - Lopressor 20 mg twice daily - Lipids in a.m. - Strict I's and O's, daily weights, telemetry - K>4 and Mg >2 Encounters Date Type Department Care Team Description 06/09/[address] [facility] CARDIOLOGY SCAN Cardiology, Scan from Last [...] has e electric, gas, oil, or water [employer] threatened to shut off services in your [...] any time in the past 12 m [facility], were you homeless or living in a fci (including now)? No 01/19/2025 Comments Unknown Sex [...] patient's age to complete this topic Insurance [facility] MEDICARE PART A & B MEDICARE PART A & B [facility] Advance Directives * Full Code (Latest Code Status on File) Date Activated Date Inactivated Comments 01/18/2025 2:04 PM Care Teams Coordinator Cardiopulmonary Services Relationship Specialty Start Date End Date Kenisha Ozuna MD [address] [place] [phone] PCP - General Internal Medicine 01/19/25
--- OUTSIDE RECORDS SUMMARY | 2025-08-04 10:38 | XMS_ITS | Patient Health Record ---
Author Organization [facility] Address [address] [place] [address] Care Team Providers Care Oven Dauber Name Role Phone Janny NAVARRO, Deb Primary Care Provider Hal Tracey Jr Unavailable [phone] Allergies Allergen (clinical drug ingredient) Drug/Non Drug [...] Insured Coverage Start Date Coverage End Date [facility] [address] [facility] [place] [phone] [id number] EMMETT JUÁREZ Self - patient is the insured Medical (General) History Medical History History ICD Code hypertension Denies MA,DM,CVA,Lung disease,renal dise ase Gout myositis hx of celulitis IBS Surgical History Surgery Date(Month/Year)
--- OUTSIDE RECORDS SUMMARY | 2025-08-04 10:38 | XMS_ITS | Encounter Summary ---
Author Organization [facility] Address [address] [place] [id number] Care Team Providers Care Teradata Developer Name Role Phone Kenisha Ozuna MD Primary Care Provider [phone] Encounter Details Date Type Department Care Team (Late st Contact Info) Description 06/09/[address] [facility] CARDIOLOGY SCAN Cardiology, Scan Social History Tobacco Use Types Packs/Day Years Used Date Smoking Tobacco: Never Smokeless Tobacco: Never Alcohol Use Standard Drinks/Week Comments Not Currently 0 (1 standard drink = 0.6 oz pur e alcohol) [facility] Utilities Answer Date Recorded In the past 12 months has [employer] electric, gas, oil, or water [employer] threatened to shut off services in your [...] time in the past 12 m [facility], were you homeless or living in a halfway (including now)? No 01/19/2025 Comments Unknown Sex [...] on filedocumented in this encounter Care Teams Teradata Developer Relationship Specialty Start Date End Date Kenisha Ozuna MD [address] [place] [address] [place] [phone] PCP - General Internal Medicine 01/19/25 documented as of this encounter
== END 2025-08-04 10:24 | disposition home or self-care (01) ==
LOC: HO.HMCHD 09:31
PROVIDERS: PCP Physician Assistant; Visit Provider Physician Assistant
DX: I10 Essential (primary) hypertension (principal); I48.0 Paroxysmal atrial fibrillation; I50.9 Heart failure, unspecified

== ENCOUNTER 2025-08-04 14:45 | Inpatient (IN) | payer MEDICARE, OTHER, SELFPAY ==
--- NOTE | ~2025-08-04 | XR_ITS ---
EXAMINATION: XR CHEST CLINICAL INFORMATION: weakness COMPARISON: X-ray 07/26/2025 TECHNIQUE: Frontal view of the chest was obtained. FINDINGS: Cardiomediastinal silhouette is stable, within normal limits. Overlying cardiac leads. Fullness of the right miguelito, unchanged from previous, evaluate in the recent CT scan. There is prominence of the interstitial markings. No confluent airspace disease. No effusion. No pneumothorax is seen. No acute osseous findings. Bone anchors in the right humeral head. XR/XR chest 1V IMPRESSION: Prominence of the interstitial markings may reflect inflammatory/infectious process. No confluent consolidation. Prominence of the right hilar, evaluated on the recent chest CT. Electronically signed by: Rony Vora MD 08/04/2025 04:28 PM [facility]
[2025-08-04 14:54] VITALS: BP 130/63; PULSE 61; RESP 18; TEMP 36.5; O2SAT 95; BMI 30.9
--- NOTE | 2025-08-04 14:59 | ED_ITS ---
HPI - General Adult General Chief complaint: Recheck/Abnormal Lab/Rx Stated complaint: abnormal labs Time Seen by Provider: 08/04/25 14:58 Source: patient Mode of arrival: ambulatory Limitations: no limitations History of Present Illness ED Provider: Margarita Gómez PA-C HPI narrative: Patient is a 69 year old assigned female at with a history of CKD, CHF, atrial fib, group B streptococcal bacteremia, anemia, HLD, HTN, and RA who was recently admitted for severe sepsis, NSTEMI, JÚNIOR, atrial fib with RVR and hypokalemia presenting to the emergency department today with abnormal labs and increased weakness. Patient states that she was discharged from [facility] 6 days ago and 3 days ago she began feeling weak and lightheaded. Patient states that she was told by her PCP that the labs she had done today showed bad kidney numbers and they recommended she come back to the ER. Patient denies any other complaints at this time. Related Data Home Medications ?Medication ?Instructions ?Recorded ?Confirmed acetaminophen 650 mg 650 mg PO Q8H PRN Pain 07/2108/04/25 tablet,extended release allopurinol 100 mg tablet 100 mg PO DAILY 01/18/22 apixaban 5 mg tablet (Eliquis) 5 mg PO BID 01/26/25 dapagliflozin propanediol 10 mg 10 mg PO DAILY 5 08/04/25 tablet (Farxiga) ferrous sulfate 325 mg (65 mg 325 mg PO DAILY 06/22/25 08/04/25 iron) tablet potassium chloride 20 mEq 20 meq PO DAILY 06/22/25 tablet,extended release cholecalciferol (vitamin D3) 50 50 mcg PO DAILY 08/04/25 mcg (2,000 unit) capsule (Vitamin D3) furosemide 40 mg tablet 80 mg PO DAILY 07/19/2507/11 pantoprazole 40 mg tablet,delayed 40 mg PO DAILY@0630 07/19/25 08/04/25 release vitamin B complex 1 tab PO DAILY 07/19/2507/11 amiodarone 200 mg tablet 400 mg PO BID 08/04/2508/04 metoprolol succinate 25 mg 50 mg PO DAILY 08/04/25 tablet,extended release 24 hr Previous Rx's ?Medication ?Instructions ?Recorded baclofen 10 mg tablet 10 - 20 mg (1 - 2 x 10 mg) P O 02/25/25 BEDTIME #180 tabs atorvastatin 20 mg tablet 20 mg PO DAILY 90 days #90 t abs 07/09/25 loperamide 2 mg capsule (Imodium 2 mg PO QID PRN diarr hea 60 days 07/09/25 A-D) #180 caps aspirin 81 mg tablet,delayed 81 mg PO DAILY #90 tabs 1 09/21/24 release ondansetron 4 mg disintegrating 4 mg PO Q8H PRN nausea and 08/04/25 tablet vomiting #30 tabs Allergies Allergy/AdvReac Type Severity Reaction Status Date / Time hydroxychloroquine Allergy Severe Rash Verified 08/04/25 14:56 (Plaquenil) codeine (Codeine) Allergy Intermediate NAUSEA & Verified 08/04/25 14:56 VOMITING methotrexate Allergy Intermediate Diarrhea Verified 08/04/25 14:56 oxycodone Allergy Intermediate dizziness, Verified 08/04/25 14:56 nausea, vomiting tramadol Allergy Intermediate Diarrhea Verified 08/04/25 14:56 metronidazole Allergy Unknown Vomiting Verified 08/04/25 14:56 hydromorphone (From Dilaudid) AdvReac Vomiting Verified 08/04/25 14:56 Review of Systems 2 Constitutional: Constitutional: Reports as per HPI Eyes: Eyes: Reports as per HPI ENT: Reports as per HPI Cardiovascular: Cardiovascular: Reports as per HPI Respiratory: Respiratory: Reports as per HPI Gastrointestinal: Gastrointestinal: Reports as per HPI Genitourinary: Genitourinary: Reports as per HPI Musculoskeletal: Musculoskeletal: Reports as per HPI Integumentary/Breasts: Skin/Breast: Reports as per HPI Neurologic: Reports as per HPI Psychiatric: Psychiatric: Reports as per HPI Endocrine: Endocrine: Reports as per HPI Hematologic/Lymphatic: Hematologic/Lymphatic: Reports as per HPI Allergic/Immunologic: Allergic/Immunologic: Reports as per HPI PMF Past Medical History Attestation statement: The following information was validated with the patient. Source: old records reviewed and nursing notes reviewed Medical History CKD stage 3b, GFR 30-44 ml/min Diarrhea Congestive heart failure Atrial fibrillation Septic shock Group B streptococcal bacteriuria IBS (irritable bowel syndrome) History of cellulitis Elevated cholesterol HTN (hypertension) PONV (postoperative nausea and vomiting) Colon cancer screening Eczema DVT (deep venous thrombosis) Cough Primary osteoarthritis, right hand Primary osteoarthritis, left hand Gout Polymyositis Surgical History Hx of shoulder surgery (11/22/23) History of back surgery (~2019) Hx of endoscopy H/O colonoscopy (~02/11/19) Family History Family History Mother No problems noted. Father No problems noted. 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 Cognitive needs: No Hearing needs: No Vision needs: Yes (rx glasses) Physical Exam ED Vital Signs: Vital Signs - 24 hr 08/04/25 14:54 08/04/25 15:57 Temperature 97.7 F Pulse Rate 61 54 Respiratory Rate 18 17 Blood Pressure 130/63 114/61 Pulse Oximetry 95 96 Oxygen Delivery Method Room Air Room Air BMI result Body Mass Index 30.9 Const General: cooperative, no acute distress, alert and awake Nutritional Appearance: well nourished Orientation/consciousness: patient oriented x3 HENMT Head: Yes normal to inspection and Yes atraumatic Ears: hearing grossly normal bilaterally and external ears normal General nose exam: Normal external nose present, no nasal discharge noted and no epistaxis Face and sinus: Yes normal facial exam, No abrasion and No laceration Mouth: Normal oral and palatal mucosa present, no drooling and no muffled voice Eyes General: appearance normal, both eyes and all related structures Periorbital: periorbital findings normal Eyelids: Yes eyelids normal Conjunctivae: conjunctivae normal Pupils: Equal, round and reactive pupils present EOM: EOMs intact bilaterally Neck Neck: Yes normal visual inspection and Yes full ROM Resp Effort & Inspection: normal respiratory effort and able to speak in complete sentences Neuro General: patient oriented x3, moves all extremities and CN's II-XI intact bilaterally Cranial nerves: Yes Equal, round and reactive pupils present Cognition (Neuro): normal cognition Extrem General: Yes normal to inspection, Yes full ROM and Yes capillary refill normal Psych Appearance: grossly normal Mental Status: mental status grossly normal Affect: normal affect Attitude: cooperative Thought process: Normal thought process present Thought content: Normal thought content present Insight: Good insight present (Psych) Medications Administered Generic Name Dose Route Start Last Admin Trade Name Freq PRN Reason Stop Dose Admin Sodium Chloride 1,000 mls @ 250 mls/hr 08/04/25 15:45 08/04/25 15:56 Ns IV 08/04/25 19:44 250 mls/hr .Q4H GOOD Administration Discontinued Medications Generic Name Dose Route Start Last Admin Trade Name Freq PRN Reason Stop Dose Admin Magnesium Sulfate/Dextrose 1 gm in 100 mls @ 300 mls/hr 08/04/25 16:16 08/04/25 16:32 Magnesium Sulfate/D5w IV 08/04/25 16:35 300 mls/hr ONCE ONE Administration Medical Decision Making Medical Decision Making MDM Narrative: Patient is a 69 year old assigned female at with a history of CKD, CHF, atrial fib, group B streptococcal bacteremia, anemia, HLD, HTN, and RA who was recently admitted for severe sepsis, NSTEMI, JÚNIOR, atrial fib with RVR and hypokalemia presenting to the emergency department today with abnormal labs and increased weakness. Patient's physical exam was as noted in the physical exam portion of this note. Patient's blood work showed a CR of 1.65 with a BUN of 17 and a magnesium of 1.5. Patient's EKG showed sinus bradycardia. Patient's chest x-ray showed interstitial markings. Given the patient's new use of diuretics with worsening kidney function and magnesium - patient was given IV fluids at 250ml/hr and IV magnesium. I spoke with the hospitalist team who agreed to admission for continued hydration. I explained my physical exam findings as well as all test results to the patient. I answered all questions asked by the patient. Patient verbalized agreement and understanding with this treatment plan and admission. Differential Diagnosis Differential Diagnoses: The differential diagnosis associated with the presentation includes JÚNIOR Hypomagensemia Lightheadedness Admission/Observation Consideration of admission/observation: Escalation of care including admission/observation considered Patient admitted as noted in the MDM Rationale portion of this note. Consult Healthcare Provider Management of the patient was discussed with: Hospitalist (agreed to admission as noted in the MDM Rationale portion of this note. ) Lab Data [facility] Lab Attestation statement: I reviewed the patient's lab results. My interpretation of these results are in the MDM Rationale portion of this note. 08/04/25 15:16 08/04/25 15:16 Labs: Lab Results 08/04/25 Range/Units 15:16 WBC 6.1 (4.8-10.8) X10*3/uL RBC 3.89 L (4.20-5.50) X10*6/uL Hgb 12.2 (12.0-16.0) g/dl Hct 37.4 (37.0-47.0) % MCV 96.1 (80.0-98.0) fL MCH 31.4 (27.0-33.0) pg MCHC 32.6 (31.0-35.0) g/dl RDW 14.5 (11.0-16.0) % Plt Count 254 (160-400) X10*3/uL MPV 10.3 (9.4-12.3) fL Immature Gran % (Auto) 0.2 (0.0-0.4) % Neut % (Auto) 48.1 (45-73) % Lymph % (Auto) 24.8 (20-40) % Haakon % (Auto) 17.2 H (2-11) % Eos % (Auto) 7.6 H (0-4) % Baso % (Auto) 2.1 H (0-2) % Lymph # (Auto) 1.5 (1.2-4.9) X10*3/uL Haakon # (Auto) 1.0 (0.1-1.2) X10*3/uL Eos # (Auto) 0.5 H (0.0-0.4) X10*3/uL Baso # (Auto) 0.1 (0.0-0.2) X10*3/uL Abs Immat Gran (auto) 0.01 (0.00-0.03) X10*3/uL Absolute Neuts (auto) 2.9 (2.0-8.3) x10*3/uL Absolute Nucleated RBC 0.000 (0.0-0.012) X10*3/uL Nucleated RBC % (auto) 0.0 (0.0-0.2) /100WBC Sodium 144 (135-145) mmol/L Potassium 3.8 (3.3-5.1) mmol/L Chloride 106 (96-108) mmol/L Carbon Dioxide 29 (22-29) mmol/L Anion Gap 13 (12-20) BUN 17 H (9-16) mg/dL Creatinine 1.65 H (0.5-1.4) mg/dL Estim Creat Clear Calc 30.9 Estimated GFR 31 Random Glucose 84 (60-115) mg/dL Calcium 9.0 (8.4-10.2) mg/dL Magnesium 1.5 L (1.6-2.6) mg/dL Total Bilirubin 0.4 (0.0-1.0) mg/dL Direct Bilirubin 0.2 (0.0-0.5) mg/dL AST 26 (5-31) U/L ALT 7 (0-31) U/L Alkaline Phosphatase 101 (39-117) U/L Troponin I High Sens 13.3 D (<3.5-17.0) ng/L NT-Pro-B Natriuret Pep 1373.5 H (<300) pg/mL Total Protein 6.6 (6.5-8.0) g/dL Albumin 3.8 (3.5-5.0) g/dL Independent Interpretation I performed an independent interpretation of an: EKG and Plain X-Ray Interpretation: My interpretation is in agreement with the radiologist's impression of this imaging study as written below. EXAMINATION: XR CHEST CLINICAL INFORMATION: weakness COMPARISON: X-ray 07/26/2025 TECHNIQUE: Frontal view of the chest was obtained. FINDINGS: Cardiomediastinal silhouette is stable, within normal limits. Overlying cardiac leads. Fullness of the right miguelito, unchanged from previous, evaluate in the recent CT scan. There is prominence of the interstitial markings. No confluent airspace disease. No effusion. No pneumothorax is seen. No acute osseous findings. Bone anchors in the right humeral head. XR/XR chest 1V IMPRESSION: Prominence of the interstitial markings may reflect inflammatory/infectious process. No confluent consolidation. Prominence of the right hilar, evaluated on the recent chest CT. Electronically signed by: Rony Vora MD 08/04/2025 04:28 PM EST Dictated By: Rony Vora MD Signed By: Electronically signed by Rony Vora MD 08/04/25 1628 I independently interpreted this EKG and am in agreement with the below findings: Vent. Rate: 53 BPM Atrial Rate: 53 BPM P-R Int: 190 ms QRS Dur: 70 ms QT Int: 426 ms P-R-T Axes: 89 34 96 degrees QTcB Int: 399 ms Sinus bradycardia When compared with ECG of 24-Jul-2025 10:15, QT has shortened DD/ 1601 Radiology Impression Discussion of test interpretation with radiology: I have reviewed the radiologist's reading. External Record Review External record reviewed: Inpatient record (reviewed patient's previous admission record) Critical Care Time Critical Care Time Critical Care Time: Yes Total Critical Care Time: 34 Attestation: I spent 34 minutes of Critical Care Time with this patient. This does not include time spent on separately reported billable procedures. Discharge Plan Discharge Clinical Impression: JÚNIOR (acute kidney injury), Hypomagnesemia, Lightheadedness Patient Disposition: Admitted As Inpatient
[2025-08-04 15:21] LABS: MANUAL DIFF FLAG NO
[2025-08-04 15:22] LABS: Hematocrit 37.4 % (37.0-47.0); Hemoglobin 12.2 g/dl (12.0-16.0); Imm Gran Abs Auto 0.01 X10*3/uL (0.00-0.03); Imm Gran Pct Auto 0.2 % (0.0-0.4); Lymphocytes Absolute Auto 1.5 X10*3/uL (1.2-4.9); Mean Corpuscular HGB Conc 32.6 g/dl (31.0-35.0); Mean Corpuscular Hemoglobin 31.4 pg (27.0-33.0); Mean Corpuscular Volume 96.1 fL (80.0-98.0); NRBC Abs Auto 0.000 X10*3/uL (0.0-0.012); NRBC Pct Auto 0.0 /100WBC (0.0-0.2); Platelet Count 254 X10*3/uL (160-400); Red Blood Count 3.89 X10*6/uL (4.20-5.50); White Blood Count 6.1 X10*3/uL (4.8-10.8)
[2025-08-04 15:40] LABS: Alanine Aminotransferase 7 U/L (0-31); Albumin Level 3.8 g/dL (3.5-5.0); Alkaline Phosphatase 101 U/L (39-117); Anion Gap 13 (12-20); Aspartate Amino Transferase 26 U/L (5-31); Blood Urea Nitrogen 17 mg/dL (9-16); Calcium 9.0 mg/dL (8.4-10.2); Carbon Dioxide 29 mmol/L (22-29); Chloride 106 mmol/L (96-108); Creatinine Clr Calc Pharmacy 30.9; Estimated Glomerular Filt Rate 31; Magnesium 1.5 mg/dL (1.6-2.6); Potassium 3.8 mmol/L (3.3-5.1); Sodium 144 mmol/L (135-145); Total Protein 6.6 g/dL (6.5-8.0)
--- NOTE | 2025-08-04 15:50 | ECG_ITS ---
Test Reason : WEAKNESS Blood Pressure : */* mmHG Vent. Rate : 53 BPM Atrial Rate : 53 BPM P-R Int : 190 ms QRS Dur : 70 ms QT Int : 426 ms P-R-T Axes : 89 34 96 degrees QTcB Int : 399 ms Sinus bradycardia with sinus arrhythmia Low voltage QRS Septal infarct (cited on or before 19-Jul-2025) Abnormal ECG When compared with ECG of 24-Jul-2025 10:15, Nonspecific T wave abnormality now evident in Inferior leads QT has shortened Referred By: Margarita Gómez Electronically Signed By: Al Galvan
[2025-08-04 15:57] VITALS: BP 114/61; PULSE 54; RESP 17; O2SAT 96
[2025-08-04 16:13] LABS: NT Pro B Type Natriuretic Pept 1373.5 pg/mL (<300); Troponin-I High Sensitivity 13.3 ng/L (<3.5-17.0)
--- NOTE | 2025-08-04 16:59 | PHA.MEDREC ---
Pharmacy Consult ? Medication Reconciliation Pharmacy has completed the medication reconciliation. Utilized med list from 07/29/25 discharge to verify, pt should be on their last dose of Amiodarone 400mg tonight before moving to 200mg daily. Will make sure provider aware
--- NOTE | 2025-08-04 17:00 | PM.IMHP ---
History of Present Illness Date of Service: 08/04/25 Chief Complaint: Abnormal lab work 69 year old woman with a history of CKD, CHF, atrial fib, group B streptococcal bacteremia, anemia, HLD, HTN, and RA who was recently admitted for severe sepsis, NSTEMI, JÚNIOR, atrial fib with RVR and hypokalemia presented to the emergency department today with abnormal labs and increased weaknes and dizziness. she reported that she had lab work and per pcp called her to go to the ED. She reported that shes been having multiple loose stools for about 2 weeks. last few days she has had some lightheadess and dizziness. She denied chest pain, sob, NV, fever, chills. In the ED, her creat was elevated at 1.65, magnesium 1.5. Her magnesium was repleted and she was given IV fluids for the JÚNIOR. Plan will be to admit patient for JÚNIOR and hypomagnesemia. Review of Systems Review of Systems: Denies any recent fever chills or decrease in appetite respiratory denies any shortness of breath or cough cardiovascular denied chest pain gastrointestinal denies any dysphagia abdominal pain nausea vomiting genitourinary denies any dysuria frequency or hematuria musculoskeletal denies any joint pain or swelling neuropsych denies any weakness or seizures all other systems reviewed are negative [facility] Medical History CKD stage 3b, GFR 30-44 ml/min Diarrhea Congestive heart failure Atrial fibrillation Septic shock Group B streptococcal bacteriuria IBS (irritable bowel syndrome) History of cellulitis Elevated cholesterol HTN (hypertension) PONV (postoperative nausea and vomiting) Colon cancer screening Eczema DVT (deep venous thrombosis) Cough Primary osteoarthritis, right hand Primary osteoarthritis, left hand Gout Polymyositis Family History Mother No problems noted. Father No problems noted. Surgical History Hx of shoulder surgery (11/22/23) History of back surgery (~2019) Hx of endoscopy H/O colonoscopy (~02/11/19) Social History Household Members: Spouse Housing: House Are you a primary manager of care to a significant other at home: No Do you presently have visiting nurse or other home services: No Alcohol intake: never Patient Tobacco Use Status: Never used Tobacco Smoked in Last 30 Days: No e-Cigarette/Vaping Use: Never Used Use of substances other than those prescribed or required for medical reasons: No Currently Displaying Signs/Symptoms of Drug Intoxication Withdrawal: No Have you been hit, kicked, punched, or otherwise hurt by someone within the past year? 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 Cognitive needs: No Hearing needs: No Vision needs: Yes (rx glasses) Meds Allergies Allergy/AdvReac Type Severity Reaction Status Date / Time hydroxychloroquine Allergy Severe Rash Verified 08/04/25 14:56 (Plaquenil) codeine (Codeine) Allergy Intermediate NAUSEA & Verified 08/04/25 14:56 VOMITING methotrexate Allergy Intermediate Diarrhea Verified 08/04/25 14:56 oxycodone Allergy Intermediate dizziness, Verified 08/04/25 14:56 nausea, vomiting tramadol Allergy Intermediate Diarrhea Verified 08/04/25 14:56 metronidazole Allergy Unknown Vomiting Verified 08/04/25 14:56 hydromorphone (From Dilaudid) AdvReac Vomiting Verified 08/04/25 14:56 Active Medications: Current Medications Acetaminophen (Acetaminophen 325 Mg Tablet) 650 mg PO Q6H PRN PRN Reason: Pain, Mild 1-3,fever,headache Calcium Carbonate (Calcium Carbonate 750 Mg Tab.Chew) 750 mg PO Q4H PRN PRN Reason: Heartburn Sodium Chloride (Ns) 1,000 mls @ 250 mls/hr IV .Q4H GOOD Stop: 08/04/25 19:44 Last Admin: 08/04/25 15:56 Dose: 250 mls/hr Lactated Ringer's (Lr) 1,000 mls @ 100 mls/hr IVCONT .Q10H [facility] Magnesium Hydroxide (Milk Of Magnesia 30 Ml Oral.Susp) 30 ml PO DAILY PRN PRN Reason: Constipation Melatonin (Melatonin 3 Mg Tablet) 6 mg PO BEDTIME PRN PRN Reason: Insomnia Ondansetron HCl (Ondansetron Hcl 4 Mg/2 Ml Vial) 4 mg IVPUSH Q8H PRN PRN Reason: Nausea and Vomiting Sodium Chloride (0.9 % Sodium Chloride Flush 3 Ml Syringe) 3 ml IVFLUSH QSHIFT [facility] Home Medications ?Medication ?Instructions ?Recorded ?Confirmed ?Last Taken ?Type acetaminophen 650 mg 650 mg PO Q8H PRN Pain 07/21/20 08/04/25 Unknown History tablet,extended release allopurinol 100 mg tablet 100 mg PO DAILY 01/18/22 08/04/25 07/18/25 History apixaban 5 mg tablet (Eliquis) 5 mg PO BID 01/26/25 08/04/25 07/18/25 History dapagliflozin propanediol 10 mg 10 mg PO DAILY 02/25/25 08/04/25 07/18/25 History tablet (Farxiga) ferrous sulfate 325 mg (65 mg 325 mg PO DAILY 06/22/25 08/04/25 07/18/25 History iron) tablet potassium chloride 20 mEq 20 meq PO DAILY 06/22/25 08/04/25 07/18/25 History tablet,extended release cholecalciferol (vitamin D3) 50 50 mcg PO DAILY 07/19/25 08/04/25 07/18/25 History mcg (2,000 unit) capsule (Vitamin D3) furosemide 40 mg tablet 80 mg PO DAILY 07/19/25 08/04/25 07/18/25 History pantoprazole 40 mg tablet,delayed 40 mg PO DAILY@0630 07/19/25 08/04/25 07/18/25 History release vitamin B complex 1 tab PO DAILY 07/19/25 08/04/25 07/18/25 History amiodarone 200 mg tablet 400 mg PO BID 08/04/25 08/04/25 Unknown History metoprolol succinate 25 mg 50 mg PO DAILY 08/04/25 08/04/25 Unknown History tablet,extended release 24 hr Physical Exam Vital Signs and Narrative: Vital Signs: Last Vital Signs Temp 97.7 F 08/04/25 14:54 Pulse 54 08/04/25 15:57 Resp 17 08/04/25 15:57 BP 114/61 08/04/25 15:57 Pulse Ox 96 08/04/25 15:57 O2 Del Method Room Air 08/04/25 15:57 BMI result Body Mass Index 30.9 Appearing in no acute distress head is normocephalic atraumatic eyes pupils are PERRLA sclera is anicteric mouth throat mucous membranes are intact and moist neck is supple no lymphadenopathy, no JVD noted lung sounds are clear to auscultation heart regular rate rhythm, clear S1, S2 positive bowel sounds, abdomen is soft, nontender neuro patient is alert x3, no focal deficits Results Labs 08/05/25 06:08 08/05/25 06:08 Labs: Laboratory Results - last 24 hr 08/04/25 15:16 MCV 96.1 MCH 31.4 MCHC 32.6 RDW 14.5 Plt Count 254 MPV 10.3 Immature Gran % (Auto) 0.2 Neut % (Auto) 48.1 Lymph % (Auto) 24.8 Todd % (Auto) 17.2 H Eos % (Auto) 7.6 H Baso % (Auto) 2.1 H Lymph # (Auto) 1.5 Todd # (Auto) 1.0 Eos # (Auto) 0.5 H Baso # (Auto) 0.1 Abs Immat Gran (auto) 0.01 Absolute Neuts (auto) 2.9 Absolute Nucleated RBC 0.000 Nucleated RBC % (auto) 0.0 Anion Gap 13 Estim Creat Clear Calc 30.9 Estimated GFR 31 Random Glucose 84 Calcium 9.0 Magnesium 1.5 L Total Bilirubin 0.4 Direct Bilirubin 0.2 AST 26 ALT 7 Alkaline Phosphatase 101 Troponin I High Sens 13.3 D NT-Pro-B Natriuret Pep 1373.5 H Total Protein 6.6 Albumin 3.8 Imaging Radiologist's Impressions: Impressions Chest X-Ray 08/04/25 16:17 IMPRESSION: Prominence of the interstitial markings may reflect inflammatory/infectious process. No confluent consolidation. Prominence of the right hilar, evaluated on the recent chest CT. Electronically signed by: Rony Vora MD 08/04/2025 04:28 PM [facility] Assessment and Plan (1) HTN (hypertension): Qualifiers: Hypertension type: primary hypertension Qualified Code(s): I10 - Essential (primary) hypertension Status: Acute Plan 69 year old women admitted with JÚNIOR and hypomagnesemia JÚNIOR Creat 1.65 recently started on Amiodarone vs diarrhea, volume loss IV fluids Nephrology consultation monitor BMP and avoid nephrotoxins Hypomagnesemia Mag 1.5 s/p IV mag follow and replete Diarrhea check stool studies and cdiff, if neg start on loperamide Dizziness ? secondary to bradycardia? Hold BB and amiodarone cardiology consultation PAFIB stable HR continue eliquis and BB hold amiodarone in light of JÚNIOR HFpEF hold lasix for now Gout hold allopurinol DVT with eliquis Full code Quality Stroke Does the patient have a stroke diagnosis?: No VTE Prior VTE?: No VTE Risk Level:: Medical - moderate - high VTE Device Contraindication: Treatment Not Indicated VTE Drug Contraindication: N/A - Med Ordered
--- NOTE | 2025-08-04 17:28 | PC.NURSE ---
Per admitting provider, start LR fluids once NS is done.
[2025-08-04 17:47] VITALS: BP 156/78; PULSE 60; RESP 18; TEMP 36.4; O2SAT 96
[2025-08-04 18:02] LABS: Appearance Urine Clear; Glucose Urine UA 100 mg/dL (Negative); PH 7.0 (5.0-9.0); Specific Gravity - Urine <= 1.005 (1.005-1.025)
--- NOTE | 2025-08-04 18:34 | HO.NURTONUR ---
PER MD: 69 year old woman with a history of CKD, CHF, atrial fib, group B streptococcal bacteremia, anemia, HLD, HTN, and RA who was recently admitted for severe sepsis, NSTEMI, JÚNIOR, atrial fib with RVR and hypokalemia presented to the emergency department today with abnormal labs and increased weaknes and dizziness. she reported that she had lab work and per pcp called her to go to the ED. She reported that shes been having multiple loose stools for about 2 weeks. last few days she has had some lightheadess and dizziness. She denied chest pain, sob, NV, fever, chills. In the ED, her creat was elevated at 1.65, magnesium 1.5. Her magnesium was repleted and she was given IV fluids for the JÚNIOR. Plan will be to admit patient for JÚNIOR and hypomagnesemia. PER RN: Alert and oriented, ambulatory and independent IV: 22G in right forearm Meds: NS infusing, canceled LR order Uses bathroom with no issues on her own Admit: JÚNIOR, Hypomag, dizziness, cardio consult Sinus omari on threat monitoring analyst No pain
[2025-08-04 19:55] VITALS: BP 108/49; PULSE 52; RESP 16; TEMP 36.6; O2SAT 94
[2025-08-04 20:24] VITALS: BMI 30.8
[2025-08-04] MEDS: 0.9 % Sodium Chloride Flush 3 ML SYRINGE IVFLUSH (21:36)
[2025-08-05] VITALS (7 sets, daily range): BP systolic 123–172; BP diastolic 56–89; PULSE 43–61; RESP 14–18; TEMP 36–36.9; O2SAT 96–97
--- NOTE | 2025-08-05 | ECG_ITS ---
Test Reason : rythem check Blood Pressure : */* mmHG Vent. Rate : 44 BPM Atrial Rate : 44 BPM P-R Int : 170 ms QRS Dur : 82 ms QT Int : 462 ms P-R-T Axes : 52 40 89 degrees QTcB Int : 395 ms Marked sinus bradycardia with sinus arrhythmia Nonspecific ST and T wave abnormality Abnormal ECG When compared with ECG of 05-Aug-2025 11:22, Non-specific change in ST segment in Inferior leads Nonspecific T wave abnormality has replaced inverted T waves in Lateral leads QT has shortened Referred By: Jason Ortega Electronically Signed By: Al Galvan
--- NOTE | 2025-08-05 02:34 | P.EN_ITS ---
Event Note Date of Service: 08/05/25 Event Note: Nursing notified this information writer that pt would need 400 mg dose of amiodorone now and resume 200 mg daily in AM per pharmacist. Orders placed. Time Spent With Patient Time: Total time managing care of this patient today ____ minutes.
--- NOTE | 2025-08-05 02:45 | PC.NURSE ---
Pt takes amiodarone BID at home. Pt did not take it tonight. [employer] Rachel notified via [place] text, 400mg PO amiodarone ordered and administered.
[2025-08-05 07:14] LABS: Hematocrit 33.7 % (37.0-47.0); Hemoglobin 10.9 g/dl (12.0-16.0); Mean Corpuscular HGB Conc 32.3 g/dl (31.0-35.0); Mean Corpuscular Hemoglobin 30.9 pg (27.0-33.0); Mean Corpuscular Volume 95.5 fL (80.0-98.0); NRBC Abs Auto 0.000 X10*3/uL (0.0-0.012); NRBC Pct Auto 0.0 /100WBC (0.0-0.2); Platelet Count 201 X10*3/uL (160-400); Red Blood Count 3.53 X10*6/uL (4.20-5.50); White Blood Count 3.9 X10*3/uL (4.8-10.8)
[2025-08-05 07:27] LABS: Magnesium 1.8 mg/dL (1.6-2.6)
[2025-08-05 07:34] LABS: Anion Gap 11 (12-20); Blood Urea Nitrogen 13 mg/dL (9-16); Calcium 9.0 mg/dL (8.4-10.2); Carbon Dioxide 28 mmol/L (22-29); Chloride 110 mmol/L (96-108); Creatinine Clr Calc Pharmacy 37.3; Estimated Glomerular Filt Rate 39; Potassium 3.4 mmol/L (3.3-5.1); Sodium 146 mmol/L (135-145)
[2025-08-05] MEDS: Metoprolol Succinate ER 50 MG TAB.ER.24H PO (08:55)
[2025-08-05] MEDS: Aspirin Enteric Coated 81 MG TABLET.DR PO (08:55)
[2025-08-05] MEDS: 0.9 % Sodium Chloride Flush 3 ML SYRINGE IVFLUSH ×3 (08:55→19:11)
[2025-08-05] MEDS: Ferrous Sulfate 324 MG TABLET.DR PO (08:55)
--- NOTE | 2025-08-05 10:32 | PM.CNCAR ---
History of Present Illness History of Present Illness Date of Service: 08/05/25 Requesting physician: Jason Ortega Chief complaint: JÚNIOR, hypomag Narrative: [age] year female who recently was admitted with sepsis and had paroxysmal atrial fibrillation and was started on amiodarone and anticoagulation. She is presenting with nausea, vomiting and loose stools. She said she was feeling lousy and decided come to the emergency department. In the ER she was noticed to have acute kidney injury and hypomagnesemia. Her NT proBNP was 1 373. This is lower compared to July 28 when it was 8251. She is denying any chest pain or shortness of breath. Her main complaint is just feeling dizzy and tired. She is saying that she feels lightheaded when she is walking. No vertigo. Her orthostatics are negative. She is asking whether amiodarone can be the cause for her symptoms. [facility] Past Medical History Medical History CKD stage 3b, GFR 30-44 ml/min Diarrhea Congestive heart failure Atrial fibrillation Septic shock Group B streptococcal bacteriuria IBS (irritable bowel syndrome) History of cellulitis Elevated cholesterol HTN (hypertension) PONV (postoperative nausea and vomiting) Colon cancer screening Eczema DVT (deep venous thrombosis) Cough Primary osteoarthritis, right hand Primary osteoarthritis, left hand Gout Polymyositis Family History Family History Mother No problems noted. Father No problems noted. Surgical History Surgical History Hx of shoulder surgery (11/22/23) History of back surgery (~2019) Hx of endoscopy H/O colonoscopy (~02/11/19) Social History Social History Household Members: Spouse Housing: House Are you a primary health and social care teacher to a significant other at home: No Do you presently have visiting nurse or other home services: No Alcohol intake: never Patient Tobacco Use Status: Never used Tobacco Smoked in Last 30 Days: No e-Cigarette/Vaping Use: Never Used Use of substances other than those prescribed or required for medical reasons: No Currently Displaying Signs/Symptoms of Drug Intoxication Withdrawal: No Have you been hit, kicked, punched, or otherwise hurt by someone within the past year? 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 Cognitive needs: No Hearing needs: No Vision needs: Yes (rx glasses) Meds Allergies Allergy/AdvReac Type Severity Reaction Status Date / Time hydroxychloroquine Allergy Severe Rash Verified 08/04/25 14:56 (Plaquenil) codeine (Codeine) Allergy Intermediate NAUSEA & Verified 08/04/25 14:56 VOMITING methotrexate Allergy Intermediate Diarrhea Verified 08/04/25 14:56 oxycodone Allergy Intermediate dizziness, Verified 08/04/25 14:56 nausea, vomiting tramadol Allergy Intermediate Diarrhea Verified 08/04/25 14:56 metronidazole Allergy Unknown Vomiting Verified 08/04/25 14:56 hydromorphone (From Dilaudid) AdvReac Vomiting Verified 08/04/25 14:56 Active Medications: Current Medications Acetaminophen (Acetaminophen 325 Mg Tablet) 650 mg PO Q6H PRN PRN Reason: Pain, Mild 1-3,fever,headache Amiodarone HCl (Amiodarone Hcl 200 Mg Tablet) 200 mg PO BEDTIME [facility] Apixaban (Apixaban 5 Mg Tablet) 5 mg PO BID [facility] Last Admin: 08/05/25 08:55 Dose: 5 mg Aspirin (Aspirin Enteric Coated 81 Mg Tablet.) 81 mg PO DAILY [facility] Last Admin: 08/05/25 08:55 Dose: 81 mg Atorvastatin Calcium (Atorvastatin Calcium 20 Mg Tablet) 20 mg PO DAILY [facility] Last Admin: 08/05/25 08:55 Dose: 20 mg Calcium Carbonate (Calcium Carbonate 750 Mg Tab.Chew) 750 mg PO Q4H PRN PRN Reason: Heartburn Ferrous Sulfate (Ferrous Sulfate 324 Mg Tablet.) 324 mg PO DAILY [facility] Last Admin: 08/05/25 08:55 Dose: 324 mg Magnesium Hydroxide (Milk Of Magnesia 30 Ml Oral.Susp) 30 ml PO DAILY PRN PRN Reason: Constipation Magnesium Oxide (Magnesium Oxide 400 Mg Tablet) 800 mg PO BIDPC [facility] Last Admin: 08/05/25 08:55 Dose: 800 mg Melatonin (Melatonin 3 Mg Tablet) 6 mg PO BEDTIME PRN PRN Reason: Insomnia Omeprazole (Omeprazole 20 Mg Capsule.Dr) 20 mg PO DAILY@0630 [facility] Last Admin: 08/05/25 05:45 Dose: 20 mg Ondansetron HCl (Ondansetron Hcl 4 Mg/2 Ml Vial) 4 mg IVPUSH Q8H PRN PRN Reason: Nausea and Vomiting Sodium Chloride (0.9 % Sodium Chloride Flush 3 Ml Syringe) 3 ml IVFLUSH QSHIFT [facility] Last Admin: 08/05/25 08:55 Dose: 3 ml Vitamin D (Cholecalciferol (Vitamin D3) 25 Mcg Tablet) 50 mcg PO DAILY [facility] Last Admin: 08/05/25 08:55 Dose: 50 mcg Home Medications ?Medication ?Instructions ?Recorded ?Confirmed ?Last Taken ?Type acetaminophen 650 mg 650 mg PO Q8H PRN Pain 07/21/20 08/04/25 Unknown History tablet,extended release allopurinol 100 mg tablet 100 mg PO DAILY 01/18/22 08/04/25 07/18/25 History apixaban 5 mg tablet (Eliquis) 5 mg PO BID 01/26/25 08/04/25 07/18/25 History dapagliflozin propanediol 10 mg 10 mg PO DAILY 02/25/25 08/04/25 07/18/25 History tablet (Farxiga) ferrous sulfate 325 mg (65 mg 325 mg PO DAILY 06/22/25 08/04/25 07/18/25 History iron) tablet potassium chloride 20 mEq 20 meq PO DAILY 06/22/25 08/04/25 07/18/25 History tablet,extended release cholecalciferol (vitamin D3) 50 50 mcg PO DAILY 07/19/25 08/04/25 07/18/25 History mcg (2,000 unit) capsule (Vitamin D3) furosemide 40 mg tablet 80 mg PO DAILY 07/19/25 08/04/25 07/18/25 History pantoprazole 40 mg tablet,delayed 40 mg PO DAILY@0630 07/19/25 08/04/25 07/18/25 History release vitamin B complex 1 tab PO DAILY 07/19/25 08/04/25 07/18/25 History amiodarone 200 mg tablet 400 mg PO BID 08/04/25 08/04/25 Unknown History metoprolol succinate 25 mg 50 mg PO DAILY 08/04/25 08/04/25 Unknown History tablet,extended release 24 hr Physical Exam Vital Signs: Vital Signs: Last Vital Signs Temp 96.8 F 08/05/25 08:00 Pulse 59 08/05/25 08:26 Resp 18 08/05/25 08:00 BP 161/80 H 08/05/25 08:26 Pulse Ox 96 08/05/25 08:00 O2 Del Method Room Air 08/05/25 08:00 BMI result Body Mass Index 30.8 GENERAL APPEARANCE: in no acute distress, pleasant. NECK: no carotid bruit, no jugular venous distention. SKIN: no suspicious lesions, warm and dry. HEART: Systolic murmur aortic area with preserved 2nd heart sound, regular rate and rhythm. Bradycardic. LUNGS: clear to auscultation bilaterally. ABDOMEN: soft, nontender. EXTREMITIES: no edema. PERIPHERAL PULSES: equal. NEUROLOGIC: No gross deficits, AAO X 3 Objective Labs and Meds 08/05/25 06:08 08/05/25 06:08 Lab results: Laboratory Results - last 24 hr 08/04/25 08/04/25 08/05/25 15:16 17:51 06:08 WBC 6.1 3.9 L RBC 3.89 L 3.53 L Hgb 12.2 10.9 L Hct 37.4 33.7 L MCV 96.1 95.5 MCH 31.4 30.9 MCHC 32.6 32.3 RDW 14.5 14.7 Plt Count 254 201 MPV 10.3 11.1 Immature Gran % (Auto) 0.2 Neut % (Auto) 48.1 Lymph % (Auto) 24.8 Mcc[place] % (Auto) 17.2 H Eos % (Auto) 7.6 H Baso % (Auto) 2.1 H Lymph # (Auto) 1.5 [place] # (Auto) 1.0 Eos # (Auto) 0.5 H Baso # (Auto) 0.1 Abs Immat Gran (auto) 0.01 Absolute Neuts (auto) 2.9 Absolute Nucleated RBC 0.000 0.000 Nucleated RBC % (auto) 0.0 0.0 Sodium 144 146 H Potassium 3.8 3.4 Chloride 106 110 H Carbon Dioxide 29 28 Anion Gap 13 11 L BUN 17 H 13 Creatinine 1.65 H 1.36 Estim Creat Clear Calc 30.9 37.3 Estimated GFR 31 39 Random Glucose 84 74 Calcium 9.0 9.0 Magnesium 1.5 L 1.8 Total Bilirubin 0.4 Direct Bilirubin 0.2 AST 26 ALT 7 Alkaline Phosphatase 101 Troponin I High Sens 13.3 D NT-Pro-B Natriuret Pep 1373.5 H Total Protein 6.6 Albumin 3.8 Urine Color Yellow Urine Appearance Clear Urine pH 7.0 Ur Specific [place] <= 1.005 Urine Protein Negative Urine Glucose (UA) 100 H Urine Ketones Negative Urine Blood Negative Urine Nitrite Negative Ur Leukocyte Esterase Negative Imaging Radiologist's impression: Impressions Chest X-Ray 08/04/25 16:17 IMPRESSION: Prominence of the interstitial markings may reflect inflammatory/infectious process. No confluent consolidation. Prominence of the right hilar, evaluated on the recent chest CT. Electronically signed by: Rony Vora MD 08/04/2025 04:28 PM [facility] Assessment and Plan (1) HTN (hypertension): Qualifiers: Hypertension type: primary hypertension Qualified Code(s): I10 - Essential (primary) hypertension Status: Acute (2) Atrial fibrillation: Qualifiers: Atrial fibrillation type: paroxysmal Qualified Code(s): I48.0 - Paroxysmal atrial fibrillation Status: Acute Plan Pleasant 69 year lady with hypertension, diastolic heart failure, atrial fibrillation currently on amiodarone and Eliquis presenting for dizziness. She has noticed to have acute kidney injury. Clinically appears to be euvolemic at this stage. It is possible that she is clinically dry at this point. Orthostatics are negative. Hold diuretics and resume at lower dose of 40 mg as kidney function improves. Monitor electrolytes closely and replete magnesium and potassium. If magnesium continues to be low then pantoprazole should be stopped and changed to Pepcid. Continue aspirin if hemoglobin is stable but if any concerns come up aspirin can be discontinued. It appears she had mild NSTEMI on July 22 and was seen by our service. Amiodarone dose has been decreased to 200 mg daily. Continue same dose for now. Thank you for allowing me to participate in the care of your patient. Please feel free to contact me if you have any questions. Procedures Date of Service Date of Service: 08/05/25
--- NOTE | 2025-08-05 10:48 | ECG_ITS ---
Test Reason : bradycardia/junctional Blood Pressure : */* mmHG Vent. Rate : 39 BPM Atrial Rate : 39 BPM P-R Int : 182 ms QRS Dur : 66 ms QT Int : 624 ms P-R-T Axes : 24 23 113 degrees QTcB Int : 502 ms Marked sinus bradycardia Low voltage QRS T wave abnormality, consider lateral ischemia Prolonged QT Abnormal ECG When compared with ECG of 04-Aug-2025 16:01, Criteria for Septal infarct are no longer Present Inverted T waves have replaced nonspecific T wave abnormality in Lateral leads QT has lengthened Referred By: Jason Ortega Electronically Signed By: Al Galvan
--- NOTE | 2025-08-05 11:18 | MHC.CM.PN ---
PT REPORTS SHE LIVES WITH HER WHO WAS BEDSIDE SHE IS INDEPENDENT WITH CARE AND USES NO DME SHE DISCHARGED ON 07/29/25, AND REFUSED [facility] SHE SA[place] [facility] [place] SHE DECLINES A HCP PCP: RASHEED GILES IMM DELIVERED DCP: HOME, RESUME [place]IENT TREAT[place] [facility]SP[place]
--- NOTE | 2025-08-05 11:49 | PC.NURSE ---
Clin Sup and reservations clerk on M/T notified that patient needs to be transferred.
--- NOTE | 2025-08-05 14:23 | P.PNIM_ITS ---
Subjective Subjective Date of Service: 08/05/25 Interval History: Bradycardia Review of Systems Patient denies any new symptoms. Feels somewhat better than yesterday Review of Systems: Yes all other systems are reviewed and are negative Physical Exam 2 Exam: Exam: Appearance: Alert.? Oriented X3.? . cvs: [id number], [id number] . res: clear to auscultation ,no rhonchii or wheezing abd: no rebound or guarding ,nt, bs present. ext pulses present , no cyanosis . neuro: axo3 , nonfocal. Vital Signs: Vital Signs: Last Vital Signs Temp 96.8 F 08/05/25 08:00 Pulse 59 08/05/25 08:26 Resp 18 08/05/25 08:00 BP 161/80 H 08/05/25 08:26 Pulse Ox 96 08/05/25 08:00 O2 Del Method Room Air 08/05/25 08:00 BMI result Body Mass Index 30.8 Objective Data Active Medications Acetaminophen (Acetaminophen 325 Mg Tablet) 650 mg PO Q6H PRN PRN Reason: Pain, Mild 1-3,fever,headache Amiodarone HCl (Amiodarone Hcl 200 Mg Tablet) 200 mg PO BEDTIME [facility] Apixaban (Apixaban 5 Mg Tablet) 5 mg PO BID [facility] Last Admin: 08/05/25 08:55 Dose: 5 mg Documented By: ANNETTE Aspirin (Aspirin Enteric Coated 81 Mg Tablet.) 81 mg PO DAILY [facility] Last Admin: 08/05/25 08:55 Dose: 81 mg Documented By: ANNETTE Atorvastatin Calcium (Atorvastatin Calcium 20 Mg Tablet) 20 mg PO DAILY [facility] Last Admin: 08/05/25 08:55 Dose: 20 mg Documented By: ANNETTE Calcium Carbonate (Calcium Carbonate 750 Mg Tab.Chew) 750 mg PO Q4H PRN PRN Reason: Heartburn Ferrous Sulfate (Ferrous Sulfate 324 Mg Tablet.) 324 mg PO DAILY [facility] Last Admin: 08/05/25 08:55 Dose: 324 mg Documented By: ANNETTE Magnesium Hydroxide (Milk Of Magnesia 30 Ml Oral.Susp) 30 ml PO DAILY PRN PRN Reason: Constipation Magnesium Oxide ([facility]ide 400 Mg Tablet) [facility] Last Admin: 08/05/25 08:55 Dose: 800 mg Documented By: ANNETTE Melatonin (Melatonin 3 Mg Tablet) 6 mg PO BEDTIME PRN PRN Reason: Insomnia Omeprazole (Omeprazole 20 Mg Capsule.Dr) 20 mg PO DAILY@0630 [facility] Last Admin: 08/05/25 05:45 Dose: 20 mg Documented By: ESTEE Ondansetron HCl (Ondansetron Hcl 4 Mg/2 Ml Vial) 4 mg IVPUSH Q8H PRN PRN Reason: Nausea and Vomiting Sodium Chloride (0.9 % Sodium Chloride Flush 3 Ml Syringe) 3 ml IVFLUSH QSHIFT [facility] Last Admin: 08/05/25 08:55 Dose: 3 ml Documented By: ANNETTE Vitamin D (Cholecalciferol (Vitamin D3) 25 Mcg Tablet) 50 mcg PO DAILY [facility] Last Admin: 08/05/25 08:55 Dose: 50 mcg Documented By: ANNETTE Labs 08/05/25 06:08 08/05/25 06:08 Labs: Laboratory Results - last 24 hr 08/04/25 08/04/25 08/05/25 15:16 17:51 06:08 MCV 96.1 95.5 MCH 31.4 30.9 MCHC 32.6 32.3 RDW 14.5 14.7 Plt Count 254 201 MPV 10.3 11.1 Immature Gran % (Auto) 0.2 Neut % (Auto) 48.1 Lymph % (Auto) 24.8 Becker % (Auto) 17.2 H Eos % (Auto) 7.6 H Baso % (Auto) 2.1 H Lymph # (Auto) 1.5 Becker # (Auto) 1.0 Eos # (Auto) 0.5 H Baso # (Auto) 0.1 Abs Immat Gran (auto) 0.01 Absolute Neuts (auto) 2.9 Absolute Nucleated RBC 0.000 0.000 Nucleated RBC % (auto) 0.0 0.0 Anion Gap 13 11 L Estim Creat Clear Calc 30.9 37.3 Estimated GFR 31 39 Random Glucose 84 74 Calcium 9.0 9.0 Magnesium 1.5 L 1.8 Total Bilirubin 0.4 Direct Bilirubin 0.2 AST 26 ALT 7 Alkaline Phosphatase 101 Troponin I High Sens 13.3 D NT-Pro-B Natriuret Pep 1373.5 H Total Protein 6.6 Albumin 3.8 Urine Color Yellow Urine Appearance Clear Urine pH 7.0 Ur Specific [place] <= 1.005 Urine Protein Negative Urine Glucose (UA) 100 H Urine Ketones Negative Urine Blood Negative Urine Nitrite Negative Ur Leukocyte Esterase Negative Assessment and Plan (1) HTN (hypertension): Status: Acute (2) JÚNIOR (acute kidney injury): Status: Acute Plan 69 year old women admitted with JÚNIOR and hypomagnesemia Dizziness: Orthostatic negative, possible multifactorial(decreased p.o. intake, diarrhea) EKG-bradycardia, also has junctional rhythm Denies any new symptoms Discussed with the Cardiology: Hold off on metoprolol, continue amiodarone as adjusted now. JÚNIOR in the setting of diarrhea Given IV fluid JÚNIOR seems improved. Diarrhea: No new episode today Stool testing ordered Acute Hypomagnesemia setting of diarrhea Repleted and resolved. htn : flauctatin received metoprolol this mornin moniter bp closely if needed will add small dose amlodipine. PAFIB stable HR continue eliquis and hold bb,continue amiodarone . HFpEF hold lasix for now -for mild hypernatremia and júnior. Gout hold allopurinol Generalized weak: Added PT evaluation Full code ongoing need : Bradycardia, JÚNIOR- Monitor for tele, status post IV fluid- monitor renal function and electrolytes. pt eval Quality Stroke Does the patient have a stroke diagnosis?: No VTE Prior VTE?: No VTE Risk Level:: Medical - moderate - high VTE Device Contraindication: Treatment Not Indicated VTE Drug Contraindication: N/A - Med Ordered
[2025-08-05 15:25] LABS: E. coli EAEC Not Detected (Not Detect.); E. coli EPEC Not Detected (Not Detect.); E. coli ETEC Not Detected (Not Detect.); E. coli STEC Not Detected (Not Detect.); Shigella sp./EIEC Not Detected (Not Detect.)
[2025-08-05 15:26] LABS: CDiff Gene PCR NEGATIVE (Negative)
[2025-08-05] MEDS: Potassium Chloride ER 20 MEQ TAB.ER.PRT PO (18:40)
[2025-08-06] VITALS (7 sets, daily range): BP systolic 124–161; BP diastolic 59–71; PULSE 48–96; RESP 14–18; TEMP 36.3–36.8; O2SAT 95–97
--- NOTE | 2025-08-06 | ECG_ITS ---
Test Reason : rythem check/qtc Blood Pressure : */* mmHG Vent. Rate : 54 BPM Atrial Rate : 54 BPM P-R Int : 174 ms QRS Dur : 74 ms QT Int : 484 ms P-R-T Axes : 30 54 106 degrees QTcB Int : 458 ms Sinus bradycardia with sinus arrhythmia Septal infarct (cited on or before 05-Aug-2025) Abnormal ECG When compared with ECG of 05-Aug-2025 17:32, QT has shortened Referred By: Jason Ortega Electronically Signed By: Al Galvan
[2025-08-06 05:33] LABS: Hematocrit 34.3 % (37.0-47.0); Hemoglobin 11.1 g/dl (12.0-16.0); Mean Corpuscular HGB Conc 32.4 g/dl (31.0-35.0); Mean Corpuscular Hemoglobin 31.3 pg (27.0-33.0); Mean Corpuscular Volume 96.6 fL (80.0-98.0); NRBC Abs Auto 0.000 X10*3/uL (0.0-0.012); NRBC Pct Auto 0.0 /100WBC (0.0-0.2); Platelet Count 192 X10*3/uL (160-400); Red Blood Count 3.55 X10*6/uL (4.20-5.50); White Blood Count 5.4 X10*3/uL (4.8-10.8)
[2025-08-06 05:50] LABS: Anion Gap 13 (12-20); Blood Urea Nitrogen 15 mg/dL (9-16); Calcium 9.0 mg/dL (8.4-10.2); Carbon Dioxide 25 mmol/L (22-29); Chloride 110 mmol/L (96-108); Creatinine Clr Calc Pharmacy 35.5; Estimated Glomerular Filt Rate 36; Magnesium 2.3 mg/dL (1.6-2.6); Potassium 3.9 mmol/L (3.3-5.1); Sodium 144 mmol/L (135-145)
--- NOTE | 2025-08-06 08:07 | P.PNIM_ITS ---
Subjective Subjective Date of Service: 08/06/25 Interval History: Bradycardia even off bb/amio Review of Systems feels generalised weak no chest pain or sob Review of Systems: Yes all other systems are reviewed and are negative Physical Exam 2 Exam: Exam: Appearance: Alert.? Oriented X3.? cvs: rrr, [id number] . res: clear to auscultation ,no rhonchii or wheezing abd: no rebound or guarding ,nt, bs present. ext pulses present , no cyanosis . neuro: axo3 , nonfocal. Vital Signs: Vital Signs: Last Vital Signs Temp 98.2 F 08/06/25 07:16 Pulse 52 08/06/25 07:16 Resp 16 08/06/25 07:16 BP 132/67 08/06/25 07:16 Pulse Ox 95 08/06/25 07:16 O2 Del Method Room Air 08/06/25 07:16 BMI result Body Mass Index 30.8 Objective Data Active Medications Acetaminophen (Acetaminophen 325 Mg Tablet) 650 mg PO Q6H PRN PRN Reason: Pain, Mild 1-3,fever,headache Apixaban (Apixaban 5 Mg Tablet) 5 mg PO BID [facility] Last Admin: 08/05/25 19:11 Dose: 5 mg Documented By: JODEE Aspirin (Aspirin Enteric Coated 81 Mg Tablet.) 81 mg PO DAILY [facility] Last Admin: 08/05/25 08:55 Dose: 81 mg Documented By: ANNETTE Atorvastatin Calcium (Atorvastatin Calcium 20 Mg Tablet) 20 mg PO DAILY [facility] Last Admin: 08/05/25 08:55 Dose: 20 mg Documented By: ANNETTE Calcium Carbonate (Calcium Carbonate 750 Mg Tab.Chew) 750 mg PO Q4H PRN PRN Reason: Heartburn Ferrous Sulfate (Ferrous Sulfate 324 Mg Tablet.) 324 mg PO DAILY [facility] Last Admin: 08/05/25 08:55 Dose: 324 mg Documented By: ANNETTE Magnesium Hydroxide (Milk Of Magnesia 30 Ml Oral.Susp) 30 ml PO DAILY PRN PRN Reason: Constipation Magnesium Oxide (Magnesium Oxide 400 Mg Tablet) 800 mg PO BIDPC [facility] Last Admin: 08/05/25 18:40 Dose: 800 mg Documented By: DAMON Melatonin (Melatonin 3 Mg Tablet) 6 mg PO BEDTIME PRN PRN Reason: Insomnia Omeprazole (Omeprazole 20 Mg Capsule.) 20 mg PO DAILY@0630 [facility] Last Admin: 08/06/25 05:46 Dose: 20 mg Documented By: JODEE Potassium Chloride (Potassium Chloride Er 10 Meq Tablet.Er) 10 meq PO ONCE ONE Stop: 08/06/25 08:07 Sodium Chloride (0.9 % Sodium Chloride Flush 3 Ml Syringe) 3 ml IVFLUSH QSHIFT [facility] Last Admin: 08/05/25 19:11 Dose: 3 ml Documented By: JODEE Vitamin D (Cholecalciferol (Vitamin D3) 25 Mcg Tablet) 50 mcg PO DAILY [facility] Last Admin: 08/05/25 08:55 Dose: 50 mcg Documented By: ANNETTE Labs 08/06/25 05:20 08/06/25 05:20 Labs: Laboratory Results - last 24 hr 08/05/25 08/06/25 13:55 05:20 MCV 96.6 MCH 31.3 MCHC 32.4 RDW 14.7 Plt Count 192 MPV 10.7 Absolute Nucleated RBC 0.000 Nucleated RBC % (auto) 0.0 Anion Gap 13 Estim Creat Clear Calc 35.5 Estimated GFR 36 Random Glucose 78 Calcium 9.0 Magnesium 2.3 Stl C. cayetanensis PCR Not Detected Stool Rotavirus A PCR Not Detected Stl Adenov F 40/41 PCR Not Detected Stool Astrovirus (PCR) Not Detected Stool Campylobacter PCR Not Detected Stool Cryptosporidium PCR Not Detected Stl Sh Tox Pr E STEC PCR Not Detected Stool E coli O157 PCR Not applicable Stl Enterotoxigenic E PCR Not Detected Stool EPEC (PCR) Not Detected Stool EAEC (PCR) Not Detected Stl E. histolytica PCR Not Detected Stool Giardia Lamblia PCR Not Detected Stl P. shigelloides PCR Not Detected Stool Salmonella PCR Not Detected Stool Sapovirus (PCR) Not Detected Stl Shigella/EIEC PCR Not Detected St Y.enterocolitica PCR Not Detected Stool Vibrio (PCR) Not Detected Stl Vibrio cholerae PCR Not Detected Stl Norovirus GI/GII PCR Not Detected C. difficile Tox B Gene NEGATIVE Assessment and Plan (1) HTN (hypertension): Status: Acute (2) JÚNIOR (acute kidney injury): Status: Acute Plan 69 year old women admitted with JÚNIOR and hypomagnesemia Dizziness: Orthostatic negative, possible multifactorial(decreased p.o. intake, diarrhea) EKG-bradycardia, also has junctional rhythm Denies any new symptoms Discussed with the Cardiology: Hold off on metoprolol and amiodarone as adjusted now. cardiology f/u Hypomagnesemia: Seems to be improved with IV replacements Continue p.o. replacement Monitor electrolyte closely QT also improved on EKG Continue monitor on tele. JÚNIOR in the setting of diarrhea Given IV fluid JÚNIOR seems improving hold lasix Diarrhea: No new episode today Stool testing ordered Acute Hypomagnesemia setting of diarrhea Repleted and resolved. htn : flauctatin received metoprolol this mornin moniter bp closely if needed will add small dose amlodipine. PAFIB stable HR continue eliquis and hold bb,continue amiodarone . HFpEF hold lasix for now -for mild hypernatremia and júnior. Gout hold allopurinol Generalized weak: Added PT evaluation Full code ongoing need : Bradycardia, JÚNIOR- Monitor for tele, status post IV fluid- monitor renal function and electrolytes. pt eval Quality Stroke Does the patient have a stroke diagnosis?: No VTE Prior VTE?: No VTE Risk Level:: Medical - moderate - high VTE Device Contraindication: Treatment Not Indicated VTE Drug Contraindication: N/A - Med Ordered
[2025-08-06] MEDS: Potassium Chloride ER 10 MEQ TABLET.ER PO (08:32)
[2025-08-06] MEDS: Aspirin Enteric Coated 81 MG TABLET.DR PO (08:32)
[2025-08-06] MEDS: Ferrous Sulfate 324 MG TABLET.DR PO (08:32)
[2025-08-06] MEDS: 0.9 % Sodium Chloride Flush 3 ML SYRINGE IVFLUSH ×2 (08:32→21:00)
--- NOTE | 2025-08-06 13:52 | MHC.CM.PN ---
PER ROUNDS PT NOPT MEDICALLY STABLE FOR DC DC PLAN REMAINS HOME
--- NOTE | 2025-08-06 15:01 | ECG_ITS ---
Test Reason : cp Blood Pressure : */* mmHG Vent. Rate : 50 BPM Atrial Rate : 50 BPM P-R Int : 174 ms QRS Dur : 82 ms QT Int : 550 ms P-R-T Axes : 38 32 104 degrees QTcB Int : 501 ms Sinus bradycardia T wave abnormality, consider lateral ischemia Abnormal ECG When compared with ECG of 06-Aug-2025 08:19, Criteria for Septal infarct are no longer Present Referred By: Jason Ortega Electronically Signed By: BOY JEFF
--- NOTE | 2025-08-06 16:15 | PM.PNCARD ---
Subjective Subjective Date of Service: 08/06/25 Interval history: Seen examined at bedside. She was noticed to be bradycardic in 40s overnight and her amiodarone was held. She was on metoprolol which was already held yesterday. Physical Exam Vital Signs: Last Vital Signs Temp 97.7 F 08/06/25 15:49 Pulse 96 08/06/25 15:49 Resp 18 08/06/25 15:49 BP 161/71 H 08/06/25 15:49 Pulse Ox 97 08/06/25 15:49 O2 Del Method Room Air 08/06/25 15:49 BMI result Body Mass Index 30.8 GENERAL APPEARANCE: in no acute distress, pleasant. NECK: no carotid bruit, no jugular venous distention. SKIN: no suspicious lesions, warm and dry. HEART: Systolic murmur aortic area with preserved 2nd heart sound, regular rate and rhythm. Bradycardic in 50s. LUNGS: clear to auscultation bilaterally. ABDOMEN: soft, nontender. EXTREMITIES: no edema. PERIPHERAL PULSES: equal. NEUROLOGIC: No gross deficits, AAO X 3 Objective Labs and Meds 08/06/25 05:20 08/06/25 05:20 Lab results: Laboratory Results - last 24 hr 08/06/25 05:20 WBC 5.4 RBC 3.55 L Hgb 11.1 L Hct 34.3 L MCV 96.6 MCH 31.3 MCHC 32.4 RDW 14.7 Plt Count 192 MPV 10.7 Absolute Nucleated RBC 0.000 Nucleated RBC % (auto) 0.0 Sodium 144 Potassium 3.9 Chloride 110 H Carbon Dioxide 25 Anion Gap 13 BUN 15 Creatinine 1.43 H Estim Creat Clear Calc 35.5 Estimated GFR 36 Random Glucose 78 Calcium 9.0 Magnesium 2.3 Progress Note: A&P Assessment and plan (1) HTN (hypertension): Status: Acute (2) Paroxysmal atrial fibrillation: Status: Acute (3) Sinus bradycardia: Status: Acute Plan 69-year-old lady who is presenting from home with dizziness. She recently had sepsis and at that time was noticed to be in atrial fibrillation and was started on amiodarone along with the apixaban and metoprolol succinate. She was dizzy at home and came in and was noticed to have acute kidney injury and this was felt to be related to over-diuresis. Lasix should be cut to 40 mg daily. She was noticed to have heart rate in 40s while awake. She was asymptomatic. Beta-blockers were already held and her amiodarone was held at this stage. Her heart rates has been in 50s and as high as 60 beats per minute when she walks. Overall she is asymptomatic from the bradycardia currently and I am hopeful that as we hold the amiodarone her heart rate should recover. The young challenges that she may go back into atrial fibrillation and is hard to know how symptomatic she was from atrial fibrillation before. She is saying that she does not remember having any symptoms from atrial fibrillation and it appears she was septic at that time too. It is quite possible that with holding medications AFib will not happen but if it does happen in his hard to control it then she may need a pacemaker as a safety move because of her tendency to be bradycardic when she is in sinus rhythm. She is acting like tachy-omari syndrome. Thank you for allowing me to participate in the care of your patient. Please feel free to contact me if you have any questions. Time Spent With Patient Time: Total time managing care of this patient today ____ minutes. Progress Note: Quality Stroke Does the patient have a stroke diagnosis?: No Procedures Date of Service Date of Service: 08/06/25
[2025-08-07 03:08] VITALS: BP 116/64; PULSE 58; RESP 12; TEMP 36.3; O2SAT 94
--- NOTE | 2025-08-07 05:54 | PC.NURSE ---
ambulating to bathroom asymptomatic, standby, steady
[2025-08-07 07:18] VITALS: BP 131/73; PULSE 58; RESP 18; TEMP 36.2; O2SAT 96
[2025-08-07] MEDS: 0.9 % Sodium Chloride Flush 3 ML SYRINGE IVFLUSH (08:05)
[2025-08-07] MEDS: Ferrous Sulfate 324 MG TABLET.DR PO (08:06)
[2025-08-07] MEDS: Aspirin Enteric Coated 81 MG TABLET.DR PO (08:06)
--- NOTE | 2025-08-07 09:54 | HO.PM.IMPN ---
Subjective Subjective Date of Service: 08/07/25 Interval History: hr flactuates Review of Systems Review of Systems: Yes all other systems are reviewed and are negative Physical Exam Exam: Exam: Appearance: Alert.? Oriented X3.? cvs: [id number], [id number] . res: clear to auscultation ,no rhonchii or wheezing abd: no rebound or guarding ,nt, bs present. ext pulses present , no cyanosis . neuro: axo3 , nonfocal. Vital Signs: Vital Signs: Last Vital Signs Temp 97.1 F 08/07/25 07:18 Pulse 58 08/07/25 07:18 Resp 18 08/07/25 07:18 BP 131/73 08/07/25 07:18 Pulse Ox 96 08/07/25 07:18 O2 Del Method Room Air 08/07/25 07:18 BMI result Body Mass Index 30.8 Objective Data Active Medications Acetaminophen (Acetaminophen 325 Mg Tablet) 650 mg PO Q6H PRN PRN Reason: Pain, Mild 1-3,fever,headache Apixaban (Apixaban 5 Mg Tablet) 5 mg PO BID [facility] Last Admin: 08/07/25 08:06 Dose: 5 mg Documented By: FABIAN Aspirin (Aspirin Enteric Coated 81 Mg Tablet.) 81 mg PO DAILY [facility] Last Admin: 08/07/25 08:06 Dose: 81 mg Documented By: FABIAN Atorvastatin Calcium (Atorvastatin Calcium 20 Mg Tablet) 20 mg PO DAILY [facility] Last Admin: 08/07/25 08:06 Dose: 20 mg Documented By: FABIAN Calcium Carbonate (Calcium Carbonate 750 Mg Tab.Chew) 750 mg PO Q4H PRN PRN Reason: Heartburn Ferrous Sulfate (Ferrous Sulfate 324 Mg Tablet.) 324 mg PO DAILY [facility] Last Admin: 08/07/25 08:06 Dose: 324 mg Documented By: FABIAN Magnesium Hydroxide (Milk Of Magnesia 30 Ml Oral.Susp) 30 ml PO DAILY PRN PRN Reason: Constipation Magnesium Oxide (Magnesium Oxide 400 Mg Tablet) [facility] Last Admin: 08/07/25 08:06 Dose: 800 mg Documented By: FABIAN Melatonin (Melatonin 3 Mg Tablet) 6 mg PO BEDTIME PRN PRN Reason: Insomnia Last Admin: 08/06/25 21:00 Dose: 6 mg Documented By: DAYANARA Omeprazole (Omeprazole 20 Mg Capsule.) 20 mg PO DAILY@0630 [facility] Last Admin: 08/07/25 05:51 Dose: 20 mg Documented By: DAYANARA Sodium Chloride (0.9 % Sodium Chloride Flush 3 Ml Syringe) 3 ml IVFLUSH QSHIFT [facility] Last Admin: 08/07/25 08:05 Dose: 3 ml Documented By: FABIAN Vitamin D (Cholecalciferol (Vitamin D3) 25 Mcg Tablet) 50 mcg PO DAILY [facility] Last Admin: 08/07/25 08:06 Dose: 50 mcg Documented By: FABIAN Labs 08/06/25 05:20 08/06/25 05:20 Assessment and Plan (1) HTN (hypertension): Status: Acute (2) ARYAN (acute kidney injury): Status: Acute Plan 69 year old women admitted with ARYAN and hypomagnesemia Dizziness: Orthostatic negative, possible multifactorial(decreased p.o. intake, diarrhea) EKG-bradycardia, also has junctional rhythm Denies any new symptoms Discussed with the Cardiology: Hold off on metoprolol and amiodarone as adjusted now. cardiology f/u Hypomagnesemia: Seems to be improved with IV replacements Continue p.o. replacement Monitor electrolyte closely QT also improved on EKG Continue monitor on tele. ARYAN in the setting of diarrhea Given IV fluid ARYAN seems improving hold lasix Diarrhea: No new episode today Stool testing ordered Acute Hypomagnesemia setting of diarrhea Repleted and resolved. htn : flauctatin received metoprolol this mornin moniter bp closely if needed will add small dose amlodipine. PAFIB stable HR continue eliquis and hold bb,continue amiodarone . HFpEF hold lasix for now -for mild hypernatremia and aryan. Gout hold allopurinol Generalized weak: Added PT evaluation Full code ongoing need : Bradycardia, ARYAN- Monitor for tele, status post IV fluid- monitor renal function and electrolytes. pt eval Quality Stroke Does the patient have a stroke diagnosis?: No VTE Prior VTE?: No VTE Risk Level:: Medical - moderate - high VTE Device Contraindication: Treatment Not Indicated VTE Drug Contraindication: N/A - Med Ordered
--- NOTE | 2025-08-07 11:40 | PM.DS ---
DS: Providers Provider Date of Service: 08/07/25 Date of admission: 08/04/25 16:55 Date of discharge: 08/07/25 Primary care physician: CARIDAD Gonzales Consults: 08/04/25 17:52 Consult to Cardiology Routine Consulting Provider: [facility] Reason for consultation: bradycardia, symptomatic Attending physician on discharge: Jason Ortega Discharging clinician: Jason Ortega DS: Diagnosis Discharge Diagnosis (1) HTN (hypertension): Status: Acute (2) JÚNIOR (acute kidney injury): Status: Acute DS: Summary Hospital Course Hospital Course: HPI:69 year old woman with a history of CKD, CHF, atrial fib, group B streptococcal bacteremia, anemia, HLD, HTN, and RA who was recently admitted for severe sepsis, NSTEMI, JÚNIOR, atrial fib with RVR and hypokalemia presented to the emergency department today with abnormal labs and increased weaknes and dizziness. she reported that she had lab work and per pcp called her to go to the ED. She reported that shes been having multiple loose stools for about 2 weeks. last few days she has had some lightheadess and dizziness. She denied chest pain, sob, NV, fever, chills. In the ED, her creat was elevated at 1.65, magnesium 1.5. Her magnesium was repleted and she was given IV fluids for the JÚNIOR. Plan will be to admit patient for JÚNIOR and hypomagnesemia. Hospital course: Dizziness: Orthostatic negative, possible multifactorial(decreased p.o. intake, diarrhea) EKG-bradycardia, also has junctional rhythm Seen and evaluated by cardiology: Currently off beta-blockers/amiodarone. Monitored off meds -heart rate improving, further management hurt cardiology f/u outpatient- Dr Alexandru quiroga. Hypomagnesemia: Seems to be improved with IV replacements Continue p.o. replacement Monitor electrolyte closely QT also improved on EKG. P.o. replacements for magnesium ordered, monitor renal function electrolytes and magnesium level outpatient JÚNIOR in the setting of diarrhea Given IV fluid and hold lasix-JÚNIOR seems improving, but slowly reintroduce Lasix outpatient HfpEF: Currently patient is euvolemic, no symptomatic cough or shortness of breath. her cxr finding this admission seems similar CT chest findings (last admission -please see dc summary on 07/29/25): that time was reviewed with Infectious Disease and Pulmonary who felt the patient did not have active pneumonia and antibiotics were discontinued. She is currently asymptomatic, if any new symptoms then we will need further evaluation and might need to go to ED. Lasix adjusted to 40 mg daily due to above. Diarrhea: Self-resolved, C diff negative,GI panel negative. Acute Hypomagnesemia setting of diarrhea Repleted and resolved. Given p.o. replacement to take home. htn :blood pressure stable. Continue Lasix, monitor blood pressure closely at home, if blood pressure persistently above 140/90 may need antihypertensive medication outpatient PAFIB stable HR continue eliquis and off bb/ amiodarone due to bradycardia please see above. Seen by PT recommended home with services. plan: Dizziness: Possible male multifactorial(decreased p.o. intake, diarrhea,júnior ,possible overdiuresis ): Patient seems to be improved with hydration and p.o. intake. Diarrhea: Self-resolved, C diff negative,GI panel negative. júnior : Improving, Lasix adjusted to 40 mg q.d. CHF education given-if gains weight 2 lb or more in a week-will need outpatient Lasix dosing assessment with PCP. Consider Follow-up with cardiology outpatient Patient had also bradycardia-so her beta-pablo and amiodarone. Currently feeling better heart rate is improving . Follow-up outpatient with her Cardiology-has appointment outpatient. If any new symptoms of palpitations or shortness of breath or any new cardiac symptoms-go to nearest emergency room. Patient says he has multiple outpatient appointments coming week. Follow up with cardio, Nephro, PCP outpatient. Above management discussed with the patient detail length she understand and in agreement with the above plan, time spent 45 minute. Time Attestation Total time managing care of this patient today: 45 mintues. Discharge Coordination Time (in mins): 45 min Quality: Safe Use of Opioids Does Pt have an Active Cancer Diagnosis on the Problem List?: No Quality: Stroke Does the patient have a stroke diagnosis?: No Physical Exam Exam: Exam: Appearance: Alert.? Oriented X3.? cvs: rrr, [id number] . res: clear to auscultation ,no rhonchii or wheezing abd: no rebound or guarding ,nt, bs present. ext pulses present , no cyanosis or edema . neuro: axo3 , nonfocal. Vital Signs: Vital Signs: Last Vital Signs Temp 97.1 F 08/07/25 07:18 Pulse 58 08/07/25 07:18 Resp 18 08/07/25 07:18 BP 131/73 08/07/25 07:18 Pulse Ox 96 08/07/25 07:18 O2 Del Method Room Air 08/07/25 07:18 BMI result Body Mass Index 30.8 DS: Data Imaging Chest x-ray: Radiologist's impression: ITS Impressions Chest X-Ray 08/04/25 16:17 IMPRESSION: Prominence of the interstitial markings may reflect inflammatory/infectious process. No confluent consolidation. Prominence of the right hilar, evaluated on the recent chest CT. Discharge Plan Discharge Anticipated Discharge Date/Time: 08/07/25 10:58 Patient Disposition: Home Health Service Discharge Diagnosis: bradycardia,júnior Referrals: Rosemarie Kraft PA [Primary Care Provider, Hospitalist] - 1 Week Discharge Medications: New magnesium oxide 400 mg magnesium capsule 800 mg PO BID Qty: 28 0RF Continued atorvastatin 20 mg tablet 20 mg PO DAILY 90 Days Qty: 90 1RF vitamin B complex Tablet 1 tab PO DAILY cholecalciferol (vitamin D3) [Vitamin D3] 50 mcg (2,000 unit) Capsule 50 mcg PO DAILY pantoprazole 40 mg tablet,delayed release (DR/EC) 40 mg PO DAILY@0630 aspirin 81 mg Tablet,Delayed Release (Dr/Ec) 81 mg PO DAILY Qty: 90 0RF acetaminophen 650 mg tablet extended release 650 mg PO Q8H PRN (Reason: Pain) allopurinol 100 mg tablet 100 mg PO DAILY dapagliflozin propanediol [Farxiga] 10 mg tablet 10 mg PO DAILY baclofen 10 mg tablet 10 - 20 mg PO BEDTIME Qty: 180 3RF Eliquis 5 mg tablet 5 mg PO BID loperamide [Imodium A-D] 2 mg capsule 2 mg PO QID PRN (Reason: diarrhea) 60 Days Qty: 180 2RF potassium chloride 20 mEq tablet extended release 20 meq PO DAILY ferrous sulfate 325 mg (65 mg iron) tablet 325 mg PO DAILY Rx Instructions: Take one pill by mouth every other day ondansetron 4 mg tablet,disintegrating 4 mg PO Q8H PRN (Reason: nausea and vomiting) Qty: 30 0RF Changed furosemide 40 mg tablet 40 mg PO DAILY Qty: 90 0RF Held amiodarone 200 mg tablet 400 mg PO BID Hold Instructions: Resume on 12/31/25. Rx Instructions: Amiodarone 400 mg p.o. b.i.d. until08/04/25 then on 08/05/25 switched to amiodarone 200 mg p.o. daily. metoprolol succinate 25 mg tablet extended release 24 hr 50 mg PO DAILY Hold Instructions: Resume on 09/08/25. Discharge Orders: Discharge Order (Routine); Ordered 08/07/25 Ordered By: Jason Ortega Diet: Advance to usual diet Activity on Discharge: As tolerated Stand Alone Forms: Patient Portal Discharge page Print Language: Polish Other Ambulatory Orders: Basic Metabolic Panel (Routine) Timeframe: 1 Week Facility: [facility] - Location: Laboratory Ordered By: Jason Ortega Magnesium (Routine) Timeframe: 1 Week Facility: [facility] - Location: Laboratory Ordered By: Jason Ortega Care Plan Goals: Dizziness: Possible male multifactorial(decreased p.o. intake, diarrhea,júnior ,possible overdiuresis ): Patient seems to be improved with hydration and p.o. intake. Diarrhea: Self-resolved, C diff negative,GI panel negative. Hypomagnesemia: Repleted and resolved, added p.o. magnesium oxide 800 mg p.o. b.i.d-1 week supply given, monitor renal function/electrolytes/magnesium level outpatient. júnior : Improving, Lasix adjusted to 40 mg q.d. CHF education given-if gains weight 2 lb or more in a week-will need outpatient Lasix dosing assessment with PCP. Consider Follow-up with cardiology outpatient Patient had also bradycardia-so her beta-pablo and amiodarone. Currently feeling better heart rate is improving . Follow-up outpatient with her Cardiology-has appointment outpatient.If any new symptoms of palpitations or shortness of breath or any new cardiac symptoms-go to nearest emergency room. Health Concerns: as above. Plan of Treatment: as above. Assessment: as above.
[2025-08-07 11:52] VITALS: BP 134/65; PULSE 56; RESP 18; TEMP 36.2; O2SAT 96
--- NOTE | 2025-08-07 12:28 | MHC.CM.PN ---
Patient has been medically cleared for dc to home today. PT recommended home with services; Patient wants to resume her outpatient rehab, here at the hospital. is aware.
--- NOTE | 2025-08-07 12:40 | PM.PNCARD ---
Subjective Subjective Date of Service: 08/07/25 Interval history: Seen examined at bedside. She has been off amiodarone and metoprolol at this stage. Heart rates has been stable. She had a short run of atrial arrhythmia. Physical Exam Vital Signs: Last Vital Signs Temp 97.1 F 08/07/25 11:52 Pulse 56 08/07/25 11:52 Resp 18 08/07/25 11:52 BP 134/65 08/07/25 11:52 Pulse Ox 96 08/07/25 11:52 O2 Del Method Room Air 08/07/25 11:52 BMI result Body Mass Index 30.8 GENERAL APPEARANCE: in no acute distress, pleasant. NECK: no carotid bruit, no jugular venous distention. SKIN: no suspicious lesions, warm and dry. HEART: Systolic murmur aortic area with preserved 2nd heart sound, regular rate and rhythm. Bradycardic in 50s. LUNGS: clear to auscultation bilaterally. ABDOMEN: soft, nontender. EXTREMITIES: no edema. PERIPHERAL PULSES: equal. NEUROLOGIC: No gross deficits, AAO X 3 Objective Labs and Meds 08/06/25 05:20 08/06/25 05:20 Progress Note: A&P Assessment and plan (1) HTN (hypertension): Status: Acute (2) Paroxysmal atrial fibrillation: Status: Acute (3) Sinus bradycardia: Status: Acute Plan 69-year-old lady who is presenting from home with dizziness. She recently had sepsis and at that time was noticed to be in atrial fibrillation and was started on amiodarone along with the apixaban and metoprolol succinate. She was dizzy at home and came in and was noticed to have acute kidney injury and this was felt to be related to over-diuresis. Lasix should be cut to 40 mg daily at discharge. She was noticed to have heart rate in 40s while awake. She was asymptomatic. Beta-blockers were already held and her amiodarone was held at this stage. Her heart rates has been in 50s and as high as 60 beats per minute when she walks. Overall she is asymptomatic from the bradycardia currently and I am hopeful that as we hold the amiodarone her heart rate should recover. The young challenge is that she may go back into atrial fibrillation and is hard to know how symptomatic she was from atrial fibrillation before. She is saying that she does not remember having any symptoms from atrial fibrillation and it appears she was septic at that time too. It is quite possible that with holding medications AFib will not happen but if it does happen and she gets symptoms then she may need a pacemaker for tachy-omari syndrome. f/u with Dr Alexandru Pastrana. Thank you for allowing me to participate in the care of your patient. Please feel free to contact me if you have any questions. Time Spent With Patient Time: Total time managing care of this patient today ____ minutes. Progress Note: Quality Stroke Does the patient have a stroke diagnosis?: No Procedures Date of Service Date of Service: 08/07/25
== END 2025-08-07 13:06 | disposition home or self-care (01) | DRG 683 ==
LOC: HO.ED 16:46 → HO.EDOVER 17:00 → HO.S3 19:05 → HO.IMC 08-05 13:30
PROVIDERS: Physician Assistant; Physician Assistant Medical; Admitting Provider Nurse Practitioner Acute Care; Emergency Provider Emergency Medicine; PCP Physician Assistant; Visit Provider Internal Medicine
DX: N17.9 Acute kidney failure, unspecified (principal); I13.0 Hypertensive heart and chronic kidney disease with heart failure and stage 1 through stage 4 chronic kidney disease, or unspecified chronic kidney disease; I50.32 Chronic diastolic (congestive) heart failure; Z79.01 Long term (current) use of anticoagulants; E83.42 Hypomagnesemia; N18.9 Chronic kidney disease, unspecified; R00.1 Bradycardia, unspecified; R19.7 Diarrhea, unspecified; I48.0 Paroxysmal atrial fibrillation; M10.9 Gout, unspecified; Z79.82 Long term (current) use of aspirin; Z79.899 Other long term (current) drug therapy
CPT/HCPCS: 36415; 71045; 80048; 80061; 80076; 81003; 83540; 83735; 83880; 84443; 84484; 85025; 85027; 87493; 87507; 93005; 97161; 99212; 99285; J3475

== ENCOUNTER → 2025-08-04 15:51 | Outpatient (BNV) | payer MEDICARE, OTHER, SELFPAY | PROVIDERS: Admitting Provider Nurse Practitioner Acute Care; Emergency Provider Emergency Medicine; PCP Physician Assistant; Visit Provider Radiology Diagnostic Ultrasound | DX: R53.1 Weakness (principal) | CPT/HCPCS: 71045 ==

== ENCOUNTER 2025-08-04 16:55 | Outpatient (BNV) | payer MEDICARE, OTHER, SELFPAY | END 2025-08-05 10:48 | PROVIDERS: Admitting Provider Nurse Practitioner Acute Care; Emergency Provider Emergency Medicine; PCP Physician Assistant; Visit Provider Internal Medicine Cardiovascular Disease | DX: I49.9 Cardiac arrhythmia, unspecified (principal); R00.1 Bradycardia, unspecified | CPT/HCPCS: 93010 ==

== ENCOUNTER 2025-08-04 16:55 | Outpatient (BNV) | payer MEDICARE, OTHER, SELFPAY | END 2025-08-06 08:19 | PROVIDERS: Admitting Provider Nurse Practitioner Acute Care; Emergency Provider Emergency Medicine; PCP Physician Assistant; Visit Provider Internal Medicine Cardiovascular Disease | DX: R00.1 Bradycardia, unspecified (principal) | CPT/HCPCS: 93010 ==

== ENCOUNTER → 2025-08-04 16:55 | Outpatient (BNV) | payer MEDICARE, OTHER, SELFPAY | PROVIDERS: Admitting Provider Nurse Practitioner Acute Care; Emergency Provider Emergency Medicine; PCP Physician Assistant; Visit Provider Internal Medicine Cardiovascular Disease | DX: I10 Essential (primary) hypertension (principal); I48.0 Paroxysmal atrial fibrillation; R00.1 Bradycardia, unspecified; I49.9 Cardiac arrhythmia, unspecified; I25.2 Old myocardial infarction | CPT/HCPCS: 93010; 99233 ==

== ENCOUNTER → 2025-08-04 16:55 | Outpatient (BNV) | payer MEDICARE, OTHER, SELFPAY | PROVIDERS: Admitting Provider Nurse Practitioner Acute Care; Emergency Provider Emergency Medicine; PCP Physician Assistant; Visit Provider Nurse Practitioner Family | DX: I10 Essential (primary) hypertension (principal); N17.9 Acute kidney failure, unspecified | CPT/HCPCS: 99223; 99232; 99499 ==

== ENCOUNTER 2025-08-10 10:06 | Outpatient (REF) | payer MEDICARE, OTHER, SELFPAY ==
[2025-08-10 11:45] LABS: Anion Gap 18 (12-20); Blood Urea Nitrogen 18 mg/dL (9-16); Calcium 9.7 mg/dL (8.4-10.2); Carbon Dioxide 25 mmol/L (22-29); Chloride 105 mmol/L (96-108); Estimated Glomerular Filt Rate 38; Potassium 3.9 mmol/L (3.3-5.1); Sodium 144 mmol/L (135-145)
[2025-08-11 09:55] LABS: Magnesium 1.7 mg/dL (1.6-2.6)
== END 2025-08-10 10:07 | disposition home or self-care (01) ==
LOC: HO.LAB 10:06
PROVIDERS: PCP Physician Assistant; Visit Provider Internal Medicine Hypertension Specialist
DX: N17.9 Acute kidney failure, unspecified (principal); R60.9 Edema, unspecified
CPT/HCPCS: 36415; 80048; 83735; 99212

== ENCOUNTER 2025-08-10 10:06 | Outpatient (AMB) | payer MEDICARE, OTHER, SELFPAY ==
--- NOTE | 2025-08-10 10:08 | HO.NEPHOV_ITS ---
Vital Signs 08/10/25 10:09 Height 5 ft 2 in Weight 167 lb BMI 30.5 BP 144/78 H Blood Pressure Location Lt brachial Position Sitting Pulse 68 Pulse Source Pulse Oximeter Pulse Oximetry (%) 99 Oxygen Delivery Method Room Air Intake Visit Reasons: 6 wks f/u w/ labs Sap Data Architect Required: No Accompanied by: Self / Same As Patient Allergies hydroxychloroquine (Plaquenil) Allergy (Severe, Verified 08/10/25 10:08) Rash codeine (Codeine) Allergy (Intermediate, Verified 08/10/25 10:08) NAUSEA & VOMITING methotrexate Allergy (Intermediate, Verified 08/10/25 10:08) Diarrhea oxycodone Allergy (Intermediate, Verified 08/10/25 10:08) dizziness, nausea, vomiting tramadol Allergy (Intermediate, Verified 08/10/25 10:08) Diarrhea metronidazole Allergy (Unknown, Verified 08/10/25 10:08) Vomiting hydromorphone (From Dilaudid) Adverse Reaction (Verified 08/10/25 10:08) Vomiting Medication List - Last Reconciled 08/10/25 by Dexter Stewart MD acetaminophen ER 650 mg PO Q8H PRN allopurinol 100 mg PO DAILY amiodarone 400 mg PO BID Held on 08/07/25. Instructions: Resume on 09/08/25. apixaban (Eliquis) 5 mg PO BID aspirin 81 mg PO DAILY atorvastatin 20 mg PO DAILY 90 days baclofen 10 - 20 mg (1 - 2 x 10 mg) PO BEDTIME cholecalciferol (vitamin D3) (Vitamin D3) 50 mcg PO DAILY dapagliflozin propanediol (Farxiga) 10 mg PO DAILY ferrous sulfate 325 mg PO DAILY furosemide 40 mg PO DAILY loperamide (Imodium A-D) 2 mg PO QID PRN 60 days magnesium oxide 800 mg (2 x 400 mg magnesium) PO BID metoprolol succinate ER 50 mg PO DAILY Held on 08/07/25. Instructions: Resume on 09/08/25. ondansetron 4 mg PO Q8H PRN pantoprazole 40 mg PO DAILY@0630 potassium chloride ER 20 mEq PO DAILY vitamin B complex 1 tab PO DAILY HPI Comments Details: . Karol is a pleasant 68-year-old woman with a history of has been normal renal function. About 2 months ago she underwent a shoulder surgery. She has been taking ibuprofen 800 mg a day. About 2 weeks ago she had abdominal discomfort followed by diarrhea and vomiting. She was treated with ciprofloxacin and metronidazole. Two weeks ago she underwent blood work which should serum creatinine of 2.67 mg with a BUN of 66. Per potassium was 3.1. She was referred to days ago for evaluation of JÚNIOR. Of note she has had a rash in her right leg which has been itchy and she was treated with antibiotics. She has no history of gross hematuria no polyuria polydipsia. No cough no expectoration no hemoptysis. No shortness of breath no chest pain At present she has no diarrhea. 02/18/2024;c/o Icthing;Overall feeling better than previous visit 05/26/24;c/o swelling in right leg;No dyspnea 06/09/24;Still with leg edema and skin rash 06/28/25 - The patient is a 69-year-old female presenting for follow-up of multiple chronic conditions including heart failure and renal insufficiency. - Heart failure: Hospitalized in January for dyspnea and fluid overload; on Lasix 40 mg twice daily. bit she takes 80 mg QAM - Atrial fibrillation: Episodes of rapid heart rate; on Farxiga and Eliquis. - Renal insufficiency: Elevated creatinine levels, possibly due to diuretics. - Gastrointestinal bleeding: Black stools, evaluated in the emergency department. 08/10/25 The patient is a 69 year old woman presenting for a follow-up visit after a recent hospitalization for management of diuretic therapy and fluctuating kidney function. The patient was hospitalized twice recently; after the first admission, the patient was home for six days before being readmitted for an additional four days after abnormal blood test results prompted a return to the hospital. During the hospitalization, the patient received intravenous fluids and had the diuretic dosage reduced from 80 mg to 40 mg due to being on too many diuretics. The patient's kidney function has been fluctuating, which is thought to be secondary to medications, particularly the diuretics. The patient's weight has decreased from 191 pounds in early July to 167 pounds, reflecting a fluid loss of approximately 24 pounds. Since the hospitalization around July 19, the patient has experienced very loose, dark stools, which are thought to be related to antibiotics taken at that time, and takes loperamide daily for this. In terms of cardiac history, metoprolol was discontinued because the patient's bradycardia. The patient reports a racing heart and is scheduled to see an switch maker for further evaluation. [facility] Medical History CKD stage 3b, GFR 30-44 ml/min Diarrhea Congestive heart failure Atrial fibrillation Septic shock Group B streptococcal bacteriuria IBS (irritable bowel syndrome) History of cellulitis Elevated cholesterol HTN (hypertension) PONV (postoperative nausea and vomiting) Colon cancer screening Eczema DVT (deep venous thrombosis) Cough Primary osteoarthritis, right hand Primary osteoarthritis, left hand Gout Polymyositis Surgical History Hx of shoulder surgery (11/22/23) History of back surgery (~2019) Hx of endoscopy H/O colonoscopy (~02/11/19) Family History Mother No problems noted. Father No problems noted. 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 Lungs entry equal no rales. Heart S1-S2 heard no gallop or rub. Abdomen soft nontender. Neuro alert awake oriented. No asterixis. Extremities Trace edema. Results Reviewed Nephrology Results: Hgb, (12.0-16.0) 11.1 g/dl L 08/06/25 WBC, (4.8-10.8) 5.4 X10*3/uL 08/06/25 Plt Count, (160-400) 192 X10*3/uL 08/06/25 Sodium, (135-145) 144 mmol/L 08/06/25 Potassium, (3.3-5.1) 3.9 mmol/L 08/06/25 Chloride, (96-108) 110 mmol/L H 08/06/25 Carbon Dioxide, (22-29) 25 mmol/L 08/06/25 BUN, (9-16) 15 mg/dL 08/06/25 Creatinine, (0.5-1.4) 1.43 mg/dL H 08/06/25 Calcium, (8.4-10.2) 9.0 mg/dL 08/06/25 Urine Protein, (Neg-Trace) Negative mg/dL 08/04/25 Renal US 02/20/24 Assessment & Plan Assessment & Plan (1) JÚNIOR (acute kidney injury): Code(s): N17.9 - Acute kidney failure, unspecified Category: Medical (2) Edema: Code(s): R60.9 - Edema, unspecified Category: Medical Plan . 69 yr old woman with JÚNIOR. Cr is worse Glomerular nephritis or interstitial disease seem unlikely based on the bland urine sediments and negative serology. With the new skin rash vasculitis was considered. But serologies have been negative. ANCA reordered and negative Obstructive uropathy seems unlikely based on the clinical picture. Serum creatinine is improved and back to baseline Continue to avoid NSAIDs. Increase p.o. fluid intake. She has anemia HCT improving Add FeSO4 325 mg PO daily SPEP noted- Immunefixation - shows mild IgG monoclonal band - ? significance Leg edema - improving ; doppler - No DVT Superficial thromboplebitis On Lasix 80mg QD s/p Venous ablation for varicose veins 06/28/25 REcent increaese in creatinine ;?hypoperfusion ;w/u ordered ;BMP in 2 weeks ;May need to decrease Lasix 08/10/25 JÚNIOR superimposed on CKD JÚNIOR due to hypoperfusion Diuretics have been lowered Continue to optimize volume status and stay on low salt diet Await cardiology work up - Keep on current doseof LAsix/KCL Check chem 7 today and she has an appt with PCP tomorrow. Orders: Orders Basic Metabolic Panel Today N17.9 - Acute kidney failure, unspecified Coding Level of Care Code Est Pt Level 4 (12873) Diagnoses JÚNIOR (acute kidney injury) N17.9 Edema R60.9
[2025-08-10 10:09] VITALS: BP 144/78; PULSE 68; O2SAT 99; BMI 30.5
--- OUTSIDE RECORDS SUMMARY | 2025-08-10 11:27 | XMS_ITS | Clinical Summary ---
Author Organization [facility] Address [address] [place] [address] Care Team Providers Care Legal Referee Name Role Phone Kenisha Ozuna MD Primary Care Provider [phone] Allergies Active Allergy Reactions Criticality Noted Date [...] subsegmental atelectasis. Minimal interstitial pulmonary edema. BNP 49186 Trop 647 -> 542 SBP 105 - Per interventional cardiology plan for RHC/LHC +/- PCI 01/20 and plan for n.p.o. at midnight - [id number] 2 - Continue heparin GTT - Aspirin [...] subsegmental atelectasis. Minimal interstitial pulmonary edema. BNP 88193 Trop 647 -> 542 SBP 105 - Per interventional cardiology plan for RHC/LHC +/- PCI 01/20 and plan for n.p.o. at midnight - [id number] 2 - Continue heparin GTT - Aspirin [...] subsegmental atelectasis. Minimal interstitial pulmonary edema. BNP 84683 Trop 647 -> 542 SBP 105 - Per interventional cardiology plan for RHC/LHC +/- PCI 01/20 and plan for n.p.o. at midnight - [id number] 2 - Continue heparin GTT - Aspirin [...] subsegmental atelectasis. Minimal interstitial pulmonary edema. BNP 44642 Trop 647 -> 542 SBP 105 - Per interventional cardiology plan for RHC/LHC +/- PCI 01/20 and plan for n.p.o. at midnight - [id number] 2 - Continue heparin GTT - Aspirin [...] subsegmental atelectasis. Minimal interstitial pulmonary edema. BNP 71095 Trop 647 -> 542 SBP 105 - Per interventional cardiology plan for RHC/LHC +/- PCI 01/20 and plan for n.p.o. at midnight - [id number] 2 - Continue heparin GTT - Aspirin 81 mg once daily - Lipitor 80 mg once daily - Lasix 40 mg IV twice daily - Lopressor 20 mg twice daily - Lipids in a.m. - Strict I's and O's, daily weights, telemetry - K>4 and Mg >2 Encounters Date Type Department Care Team Description 06/09/2025 Scanned Document [facility] CARDIOLOGY SCAN Cardiology, Scan from Last 3 Months Social History Tobacco Use Types Packs/Day Years Used Date Smoking Tobacco: Never Smokeless Tobacco: Never Tobacco Cessation:Counseling Given: Not Answered Alcohol Use Standard Drinks/Week Comments Not Currently 0 (1 standard drink = 0.6 oz pur e alcohol) [facility] Utilities Answer Date Recorded In the past 12 months has e electric, gas, oil, or water [employer] threatened to shut off services in your [...] any time in the past 12 m [facility], were you homeless or living in a [...] to complete this topic Insurance [facility] MEDICARE PART A & B MEDICARE PART A & B [facility] Advance Directives * Full Code (Latest Code Status on File) Date Activated Date Inactivated Comments 01/18/2025 2:04 PM Care Teams Legal Referee Relationship Specialty Start Date End Date Kenisha Ozuna MD [address] [place] [phone] PCP - General Internal Medicine 01/19/25
--- OUTSIDE RECORDS SUMMARY | 2025-08-10 11:27 | XMS_ITS | Encounter Summary ---
Author Organization [facility] Address [address] [place] [id number] Care Team Providers Care Sweatband Drummer Name Role Phone Kenisha Ozuna MD Primary Care Provider Encounter Details Date Type Department Care Team (Late st Contact Info) Description 06/09/2025 Scanned Document [facility] CARDIOLOGY SCAN Cardiology, Scan Social History Tobacco Use Types Packs/Day Years Used Date Smoking Tobacco: Never Smokeless Tobacco: Never Alcohol Use Standard Drinks/Week Comments Not Currently 0 (1 standard drink = 0.6 oz pur e alcohol) [facility] Utilities Answer Date Recorded In the past 12 months has [employer] electric, gas, oil, or water [employer] threatened to shut off services in your [...] on filedocumented in this encounter Care Teams Sweatband Drummer Relationship Specialty Start Date End Date Kenisha Ozuna MD [address] [place] [address] [place] [phone] PCP - General Internal Medicine 01/19/25 documented as of this encounter
== END 2025-08-10 10:25 | disposition home or self-care (01) ==
LOC: HO.HKA 10:07
PROVIDERS: PCP Internal Medicine; Visit Provider Internal Medicine Hypertension Specialist
DX: N17.9 Acute kidney failure, unspecified (principal); R60.9 Edema, unspecified
CPT/HCPCS: 99214

== ENCOUNTER 2025-08-11 08:58 | Outpatient (REF) | payer MEDICARE, OTHER, SELFPAY ==
--- OUTSIDE RECORDS SUMMARY | 2025-08-11 10:44 | XMS_ITS | Clinical Summary ---
Author Organization [facility] Facility Address [address] [place] [address] Care Team Providers Care Converting Operator Name Role Phone Deb Soliman MD Primary Care Provider [phone] Medications metoprolol tartrate (LOPRESSOR) 50 MG tablet [...] age to complete this topic Care Teams Converting Operator Relationship Specialty Start Date End Date Deb Soliman MD [address] [place] [address] [address] [place] [address] PCP - General 09/19/20
== END 2025-08-11 08:59 | disposition home or self-care (01) ==
LOC: HO.LNP 08:58
PROVIDERS: PCP Physician Assistant; Visit Provider Physician Assistant
DX: Z51.89 Encounter for other specified aftercare (principal); I48.0 Paroxysmal atrial fibrillation; E83.42 Hypomagnesemia; I11.0 Hypertensive heart disease with heart failure; I50.9 Heart failure, unspecified; R00.1 Bradycardia, unspecified
CPT/HCPCS: 99212

== ENCOUNTER 2025-08-11 08:58 | Outpatient (AMB) | payer MEDICARE, OTHER, SELFPAY ==
--- NOTE | 2025-08-11 09:00 | A.OFFPC_ITS ---
Vital Signs 08/11/25 09:01 Height 5 ft 2 in Weight 76.204 kg BMI 30.7 BP 130/84 Blood Pressure Location Rt brachial Position Sitting Respiration 16 Pulse 64 Pulse Source Pulse Oximeter Temp 96.8 F Temp Source Temporal Artery Scan Pulse Oximetry (%) 94 Oxygen Delivery Method Room Air Intake Visit Reasons: BP check w/Rosemarie Pedro Hearing Specialist Required: No Accompanied by: Self / Same As Patient Allergies hydroxychloroquine (Plaquenil) Allergy (Severe, Verified 08/11/25 09:00) Rash codeine (Codeine) Allergy (Intermediate, Verified 08/11/25 09:00) NAUSEA & VOMITING methotrexate Allergy (Intermediate, Verified 08/11/25 09:00) Diarrhea oxycodone Allergy (Intermediate, Verified 08/11/25 09:00) dizziness, nausea, vomiting tramadol Allergy (Intermediate, Verified 08/11/25 09:00) Diarrhea metronidazole Allergy (Unknown, Verified 08/11/25 09:00) Vomiting hydromorphone (From Dilaudid) Adverse Reaction (Verified 08/11/25 09:00) Vomiting Medication List - Last Reconciled 08/11/25 by CARIDAD Gonzales acetaminophen ER 650 mg PO Q8H PRN allopurinol 100 mg PO DAILY apixaban (Eliquis) 5 mg PO BID aspirin 81 mg PO DAILY atorvastatin 20 mg PO DAILY 90 days baclofen 10 - 20 mg (1 - 2 x 10 mg) PO BEDTIME cholecalciferol (vitamin D3) (Vitamin D3) 50 mcg PO DAILY dapagliflozin propanediol (Farxiga) 10 mg PO DAILY ferrous sulfate 325 mg PO DAILY furosemide 40 mg PO DAILY loperamide (Imodium A-D) 2 mg PO QID PRN 60 days magnesium oxide 800 mg (2 x 400 mg magnesium) PO BID ondansetron 4 mg PO Q8H PRN pantoprazole 40 mg PO DAILY@0630 potassium chloride ER 20 mEq PO DAILY vitamin B complex 1 tab PO DAILY Tobacco use date assessed: 06/04/25 Fall risk assessment: No Falls in past year Last assessed Fall Risk: 08/11/25 Dental Screening Dental Screen Date: 06/04/25 HPI HPI Comments History of Present Illness Details 69-year-old female with history of rheum atoid arthritis, hyperlipidemia, eczema, history of gout, history of DVT, CHF, IBS, osteoarthritis, polymyositis presenting to the office today for management of chronic conditions and hospital dc follow up. Recent hospitalization at [facility] 08/04-08/07 due to JÚNIOR and orthostatic hypotension following an extensive hospitalization severe sepsis, NSTEMI, JÚNIOR, atrial fib with RVR and hypokalemia. Júnior likely due to diarrhea, diuresis, decreased PO intake. While admitted had multiple episodes of bradycardia with junctional rhythm (asymptomatic). BB were held and advised to follow up with cards. Followed by nephro. Diuretics held and given IVF. Lytes repleted. Feeling much better. Lasix decreased CV: Follows with Dr Pastrana. Echocardiogram showed reduced LV systolic function with EF 45% and severe hypo to akinesis of the mid anterior, mid anterolateral, mid anteroseptal, and mid in the lateral segments. She did undergo cardiac catheterization which was negative for any significant coronary artery disease. On eliquis for ac. Toprol and amiodarone dc'd inpt Eczema: Awaiting dermatology consultation. She does have history of strep B cellulitis from wound culture taken from legs. She has chronic severe eczema which responds well to prednisone but does not have a prepared foods production team member RA: She was following with rheumatology. She is on leflunomide. She has significant neuropathy, numbness, tingling from the medications. She is scheduled to see rheumatology but not until Oct 2025 IBS: Previously following with Dr. Torres. Using Imodium PRN Lymphedema- PT eval this week Concerns: as above Health maintenance: Last screening mammogram 03/2025 with 1 year follow-up advised Colonoscopy 2018 Dr Garrett, 10 year follow-up ROS: See HPI EXAM: Constitutional - Awake and Alert, No apparent distress Eyes - PERRL Cardiovascular - S1S2, RRR, No edema Respiratory - Normal lung expansion, Normal respiratory effort, No respiratory distress, CTA bilaterally Extremities - no calf tenderness bilaterally, no swelling Skin - Warm/Dry Neurological - Alert & oriented x3 Psychological - Appropriate affect [facility] Medical History CKD stage 3b, GFR 30-44 ml/min Diarrhea Congestive heart failure Atrial fibrillation Septic shock Group B streptococcal bacteriuria IBS (irritable bowel syndrome) History of cellulitis Elevated cholesterol HTN (hypertension) PONV (postoperative nausea and vomiting) Colon cancer screening Eczema DVT (deep venous thrombosis) Cough Primary osteoarthritis, right hand Primary osteoarthritis, left hand Gout Polymyositis Surgical History Hx of shoulder surgery (11/22/23) History of back surgery (~2019) Hx of endoscopy H/O colonoscopy (~02/11/19) Family History Mother No problems noted. Father No problems noted. 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 How often do you have a drink containing alcohol?: Never 3. How often do you have six or more drinks on one occasion?: Never Total Score: 0 GHANSHYAM-7 AMB Questionnaire GHANSHYAM-7 Date GHANSHYAM - 7 assessed: 06/04/25 Source: Developed by Drs. Broderick Paez, Camryn Hadley, Porfirio Acosta and colleagues, with an educational vero from [employer]. Physical exam (Primary Care) Vital Signs: Last Vital Signs Temp 96.8 F 08/11/25 09:01 Pulse 64 08/11/25 09:01 Resp 16 08/11/25 09:01 BP 130/84 08/11/25 09:01 Pulse Ox 94 08/11/25 09:01 Oxygen Delivery Method Room Air 08/11/25 09:01 BMI result Body Mass Index 30.7 Tobacco/Smoking Status: Tobacco use Status Tobacco use date assessed 06/04/25 08/11/25 09:06 Patient Tobacco Use Status Never used Tobacco 08/11/25 09:06 e-Cigarette/Vaping Use Never Used 08/11/25 09:06 Thrive Assessment: Date of Thrive Assessment Date Thrive assessed 08/05/25 08/11/25 09:06 Coding Level of Care Code Complex visit Add On G2211 Diagnoses Primary hypertension I10 Hypertension type: primary hypertension Paroxysmal atrial fibrillation I48.0 Atrial fibrillation type: paroxysmal Chronic congestive heart failure, unspecified heart failure type I50.9 Heart failure chronicity: chronic Heart failure type: unspecified Hospital discharge follow-up Z51.89 Sinus bradycardia R00.1 Time Spent (min) 45 Assessment & Plan Assessment & Plan (1) HTN (hypertension): Comment: - Continue Metoprolol Succinate Code(s): I10 - Essential (primary) hypertension Category: Medical Qualifiers: Hypertension type: primary hypertension Qualified Code(s): I10 - Essential (primary) hypertension Plan: Controlled. Continue current therapies (2) Atrial fibrillation: Comment: - Continue Eliquis and monitor cardiac status periodically. Code(s): I48.91 - Unspecified atrial fibrillation Category: Medical Qualifiers: Atrial fibrillation type: paroxysmal Qualified Code(s): I48.0 - Paroxysmal atrial fibrillation Plan: Rate controlled. Continue Eliquis for anticoagulation. Hold toprol d/t bradycardia inpt. DC amiodarone (3) Congestive heart failure: Comment: - Continue Farxiga and diuretic regimen. Plan confirmed with recent cardiology visit. Code(s): I50.9 - Heart failure, unspecified Category: Medical Qualifiers: Heart failure chronicity: chronic Heart failure type: unspecified Qualified Code(s): I50.9 - Heart failure, unspecified Plan: Clinically euvolemic. Continue following with Cardiology. Continue metoprolol, reduced dose, Farxiga (4) Hospital discharge follow-up: Code(s): Z51.89 - Encounter for other specified aftercare Category: Medical Plan: H&P, DC summary. nephro and cardiology consults, labs, ekgs reviewed. Discharge medications reviewed and reconciled. JÚNIOR resolved. Diarrhea resolved. Asmptomatic (5) Sinus bradycardia: Code(s): R00.1 - Bradycardia, unspecified Category: Medical Plan: HR normal in office. Remain off BB for now. Follow up with cardiology as scheduled Plan Follow-up in the office in 6 months, labs to be completed following today's visit
[2025-08-11 09:01] VITALS: BP 130/84; PULSE 64; RESP 16; TEMP 36; O2SAT 94; BMI 30.7
--- OUTSIDE RECORDS SUMMARY | 2025-08-11 09:30 | XMS_ITS | Encounter Summary ---
Author Organization [facility] Address [address] [place] [address] Care Team Providers Care Weight Tester Name Role Phone Kenisha Ozuna MD Primary Care Provider [phone] Encounter Details Date Type Department Care Team (Late st Contact Info) Description 06/09/2025 Scanned Document [facility] CARDIOLOGY SCAN Cardiology, Scan Social History Tobacco Use Types Packs/Day Years Used Date Smoking Tobacco: Never Smokeless Tobacco: Never Alcohol Use Standard Drinks/Week Comments Not Currently 0 (1 standard drink = 0.6 oz pur e alcohol) [facility] Utilities Answer Date Recorded In the past 12 months has [employer] electric, gas, oil, or water [employer] threatened to shut off services in your [...] any time in the past 12 m [facility], were you homeless or living in a [...] on filedocumented in this encounter Care Teams Weight Tester Relationship Specialty Start Date End Date Kenisha Ozuna MD [address] [place] [address] [place] [phone] PCP - General Internal Medicine 01/19/25 documented as of this encounter
--- OUTSIDE RECORDS SUMMARY | 2025-08-11 09:30 | XMS_ITS | Clinical Summary ---
Author Organization Formerly [facility] Address [address] [place] [address] Care Team Providers Care Fire Apparatus Sprinkler Inspector Name Role Phone Kenisha Ozuna MD Primary Care Provider [phone] Allergies Active Allergy Reactions Criticality Noted Date [...] subsegmental atelectasis. Minimal interstitial pulmonary edema. BNP 10398 Trop 647 -> 542 SBP 105 - Per interventional cardiology plan for RHC/LHC +/- PCI 01/20 and plan for n.p.o. at midnight - [id number] 2 - Continue heparin GTT - Aspirin [...] subsegmental atelectasis. Minimal interstitial pulmonary edema. BNP 55029 Trop 647 -> 542 SBP 105 - Per interventional cardiology plan for RHC/LHC +/- PCI 01/20 and plan for n.p.o. at midnight - [id number] 2 - Continue heparin GTT - Aspirin [...] subsegmental atelectasis. Minimal interstitial pulmonary edema. BNP 58389 Trop 647 -> 542 SBP 105 - Per interventional cardiology plan for RHC/LHC +/- PCI 01/20 and plan for n.p.o. at midnight - [id number] 2 - Continue heparin GTT - Aspirin [...] subsegmental atelectasis. Minimal interstitial pulmonary edema. BNP 85765 Trop 647 -> 542 SBP 105 - Per interventional cardiology plan for RHC/LHC +/- PCI 01/20 and plan for n.p.o. at midnight - [id number] 2 - Continue heparin GTT - Aspirin [...] subsegmental atelectasis. Minimal interstitial pulmonary edema. BNP 31612 Trop 647 -> 542 SBP 105 - Per interventional cardiology plan for RHC/LHC +/- PCI 01/20 and plan for n.p.o. at midnight - [id number] 2 - Continue heparin GTT - Aspirin 81 mg once daily - Lipitor 80 mg once daily - Lasix 40 mg IV twice daily - Lopressor 20 mg twice daily - Lipids in a.m. - Strict I's and O's, daily weights, telemetry - K>4 and Mg >2 Encounters Date Type Department Care Team Description 06/09/2025 Scanned Document [facility] Cardiology, Scan from Last 3 Months Social History Tobacco Use Types Packs/Day Years Used Date Smoking Tobacco: Never Smokeless Tobacco: Never Tobacco Cessation:Counseling Given: Not Answered Alcohol Use Standard Drinks/Week Comments Not Currently 0 (1 standard drink = 0.6 oz pur e alcohol) [facility] Utilities Answer Date Recorded In the past 12 months has e electric, gas, oil, or water [employer] threatened to shut off services in [...] No 01/19/2025 Housing Stability Vital Sign Answer Ante e Recorded In the last 12 months, was t here a time when you were not able to pay the mortgage or rent on time? No 01/19/2025 In the past 12 months, how m any times have you moved where you were living? 0 01/19/2025 At any time in the past 12 m [facility], were you homeless or living in a alf (including now)? No 01/19/2025 Comments Unknown Sex [...] patient's age to complete this topic Insurance [facility] MEDICARE PART A & B MEDICARE PART A & B [facility] Advance Directives * Full Code (Latest Code Status on File) Date Activated Date Inactivated Comments 01/18/2025 2:04 PM Care Teams Fire Apparatus Sprinkler Inspector Relationship Specialty Start Date End Date Kenisha Ozuna MD [address] [place] [address] [phone] PCP - General Internal Medicine 01/19/25
== END 2025-08-11 09:42 | disposition home or self-care (01) ==
LOC: HO.HMCHD 08:59
PROVIDERS: PCP Physician Assistant; Visit Provider Physician Assistant
DX: I10 Essential (primary) hypertension (principal); I48.0 Paroxysmal atrial fibrillation; I50.9 Heart failure, unspecified; Z51.89 Encounter for other specified aftercare; R00.1 Bradycardia, unspecified